=== PATIENT | female | born 1970 | race Hispanic/Latino ===

== ENCOUNTER → 2018-03-12 | Day surgery (SDC) | payer MEDICARE ==
[~2018-03-12] MED LIST: ABILIFY5 MG PO; ACTOS30 MG PO; AMITRIPTYLINE H50 MG PO; COLON HEALTH PO; CYMBALTA60 MG PO; DEXTROSE 5% 250ML 250 ML IV ONE; DIAZEPAM2 MG PO; FENTANYL CITRATE/PF 100MCG/2 ML INJ ONE; FLUDROCORTISON0.1 MG PO; GABAPENTIN300 MG PO; GABAPENTIN400 MG PO; GEODON20 MG PO; GLIMEPIRIDE4 MG PO; GLIPIZIDE5 MG PO; KOMBIGLYZE XR1 EAC2 PO; LANTUS100 UNIT/1 SQ; LEVOTHYROXINE100 MCG; MECLIZINE HCL25 MG PO; MELATONIN3 MG PO; MELOXICAM7.5 MG PO; MIDAZOLAM HCL 2 MG/2 ML VIAL ONE; MIDODRINE HCL2.5 MG PO; NITROFURANTOIN100 MG PO; NOVOLOG MI100 UNIT/1 SC; NOVOLOG100 UNIT/1; ONDANSETRON2 MG/1 ML PO; ONFI10 MG PO; PHENYTOIN100 MG/4 M SC; PLOGLITAZONE PO; PROPOFOL IV EMULSION 10 MG/ML 50 ML VIAL ONE; PROPRANOLOL HCL20 MG PO; QUETIAPINE FUM100 MG PO; QUETIAPINE FUMA25 MG PO; REGLAN10 MG PO; SERTRALINE HCL100 MG PO; SUMATRIPTAN SU100 MG PO; TRESIBA PO; ULTRAM 50MG50 MG PO; VICTOZA 3-0.6 MG/0.1 PO; VIMPAT100 MG PO; VITAMIN D32000 UNIT PO; [UNRECOGNIZED DRUG - OTHER] PO
--- OUTSIDE RECORDS SUMMARY | 2018-03-12 07:24 | XMS REPORT | Clinical Summary ---
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 Active meclizine (ANTIVERT) 25 Take 25 mg by 0 MG tablet mouth 3 (three) times daily as needed. Active B-complex with vitamin C Take 1 tablet 0 tablet by mouth daily. Active liraglutide 0.6 mg/0.1 mL Inject 1.6 mg 0 (18 mg/3 mL) PnIj subcutaneousl y daily. Active insulin degludec (TRESIBA Inject 40 0 FLEXTOUCH U-100) 100 Units unit/mL (3 mL) InPn subcutaneousl y daily. Active cloBAZam (ONFI) 10 mg Tab Take 1 tablet 120 tablet 1 tablet (10 mg total) 7 by mouth 2 (two) times daily. Max Daily Amount: 20 mg Active lacosamide 200 mg Tab Take 1 tablet 60 tablet 1 (200 mg 7 total) by mouth 2 (two) times daily. Max Daily Amount: 400 mg 01/23/2018 gabapentin (NEURONTIN) Take 2 360 capsule 1 300 MG capsule capsules (600 7 mg total) by mouth 3 (three) times daily. 01/24/2018 sertraline (ZOLOFT) 25 MG Take 2 60 tablet 3 tablet tablets (50 7 mg total) by mouth daily. Active Problems Problem Noted Date Epilepsy 01/20/2017 Encounters Care Team Description Date Type Specialty Brandon Alexandra MD Partial symptomatic epilepsy with complex partial seizures, not intractable, without status epilepticus (HCC) 11/18/2017 Hospital Encounter Brandon Alexandra MD Partial symptomatic epilepsy with complex partial seizures, not intractable, without status epilepticus (HCC) (Primary Dx) 11/11/2017 Outside Orders Central Scheduling after 03/11/2017 Social History Date Tobacco Use Types Packs/Day Years Used Never Smoker Smokeless Tobacco: Never Used Sex Assigned at Date Recorded Not on file Industry Job Start Date Occupation Not on file Not on file Not on file Travel End Travel History Travel Start No recent travel history available. Last Filed Vital Signs Not on file Plan of Treatment Not on file Procedures Comments Procedure Name Priority Date/Time Associated Diagnosis EEG AWAKE AND DROWSY Routine 11/18/2017 Partial symptomatic 2:11 PM CDT epilepsy with complex partial seizures, not intractable, without status epilepticus (HCC) after 03/11/2017 Results * EEG Awake & Drowsy (11/18/2017 2:11 PM CDT) Narrative Performed At Date(s) of EE11/18/2017 [facility] DATE OF REPORT: 11/18/2017 ACC: [id number] EEG Number: [id number] Test Location: Outpatient EEG Lab Start time: 13:29 Stop time: 14:00 ICD-10: R56.9 CPT Code: 00083 HISTORY: 47 yo female with episodes of aphasia concerning for seizures. EEG order to evaluate for epileptiform activity. MEDICATIONS THAT COULD AFFECT EEG: Clobazam TECHNICAL SUMMARY: This is a digital video-EEG recorded with 32 input channels reviewed with bipolar and referential montages using the modified combinatorial system nomenclature. DESCRIPTION OF RECORD: During the maximally alert state a 9 Hz posterior dominant rhythm was seen that was symmetric, reactive to eye opening and well regulated. More anteriorly, low voltage frontocentral beta predominated. Drowsiness was characterized by alpha attenuation and increased frontocentral theta, vertex sharp transients.Stage 2 sleep was reached characterized by symmetric sleep spindles and K-complexes. SIGNIFICANT VIDEO EVENTS: None SIGNIFICANT ELECTROCARDIOGRAM EVENTS: None HV: Hyperventilation was performed for 3 minutes with good effort. No change was seen with HV. PHOTIC STIMULATION: Photic stimulation was done from 1-30 Hz; no photic driving was seen; photoparoxysmal responses were absent. IMPRESSION: Normal Awake and Sleep EEG CLINICAL CORRELATION: An EEG without epileptiform discharges does not exclude the possibility of epilepsy.If the clinical suspicion of epilepsy remains, consider additional EEG recordings. Oliva Mcgraw MD Epilepsy Fellow Albert Alexandre MD Attending Neurophysiologist Procedure Note Interface, External Ris In - 11/18/2017 6:52 PM CDT Date(s) of EE11/18/2017 DATE OF REPORT: 11/18/2017 ACC: [id number] EEG Number: [id number] Test Location: Outpatient EEG Lab Start time: 13:29 Stop time: 14:00 ICD-10: R56.9 CPT Code: 30167 HISTORY: 47 yo female with episodes of aphasia concerning for seizures. EEG order to evaluate for epileptiform activity. MEDICATIONS THAT COULD AFFECT EEG: Clobazam TECHNICAL SUMMARY: This is a digital video-EEG recorded with 32 input channels reviewed with bipolar and referential montages using the modified combinatorial system nomenclature. DESCRIPTION OF RECORD: During the maximally alert state a 9 Hz posterior dominant rhythm was seen that was symmetric, reactive to eye opening and well regulated. More anteriorly, low voltage frontocentral beta predominated. Drowsiness was characterized by alpha attenuation and increased frontocentral theta, vertex sharp transients. Stage 2 sleep was reached characterized by symmetric sleep spindles and K-complexes. SIGNIFICANT VIDEO EVENTS: None SIGNIFICANT ELECTROCARDIOGRAM EVENTS: None HV: Hyperventilation was performed for 3 minutes with good effort. No change was seen with HV. PHOTIC STIMULATION: Photic stimulation was done from 1-30 Hz; no photic driving was seen; photoparoxysmal responses were absent. IMPRESSION: Normal Awake and Sleep EEG CLINICAL CORRELATION: An EEG without epileptiform discharges does not exclude the possibility of epilepsy. If the clinical suspicion of epilepsy remains, consider additional EEG recordings. Oliva Mcgraw MD Epilepsy Fellow Albert Alexandre MD Attending Neurophysiologist Performing Organization Address City/State/Zipcode Phone Number GE RIS after 03/11/2017 Insurance Payer Benefit Subscriber ID Type Phone Address Plan / Group MEDICARE MEDICARE A xxxxxxxxxx Medicare B MEDICAID MEDICAID xxxxxxxxx Medicaid OF [place] Advance Directives For more information, please contact: [address] [address] Date Inactivated Comments Code Status Date Activated 01/23/2017 2:40 PM Full Code 01/20/2017 8:53 AM This code status was determined by: Patient
--- OUTSIDE RECORDS SUMMARY | 2018-03-12 07:24 | XMS REPORT ---
Author Author [facility] Address Unknown Phone Unavailable Care Team Providers Care Watch Crystal Cutter Name Role Phone KIRILL ORDOÑEZ Unavailable Unavailable Problems This patient has no known problems. Allergies, Adverse Reactions, Alerts This patient has no known allergies or adverse reactions. Medications This patient has no known medications. 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 Date(s) of EE11/18/2017 DATE OF REPORT: 11/18/2017 ACC: [id number] EEG Number: [id number] Test Location: Outpatient EEG Lab Start time: 13:29 Stop time: 14:00 ICD-10: R56.9 CPT Code: 35498 HISTORY: 47 yo female with episodes of [...] Epilepsy Fellow Albert Alexandre MD Attending Neurophysiologist MONITORING WITH VIDEO RECORDING EACH 24 HOURS 2017-02-04 10:34:00 Reason for exam:->SLRE v/s PNES Video EEG Monitoring Report Angelica Chin Accession Numbers: [id number] (01/21/2017) [id number] (01/22/2017) [id number] (01/23/2017) ICD10: R56.9 EEG Number: [id number] EEG Study Period: 01/20/2017 09:35:22 to 01/23/2017 11:42:02 CLINICAL DETAILS: Angelica Chin is a 46 y.o woman w/ 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 She was referred from [facility]. Patient had her first seizure in 2001 at the age of 31. Her first event was reportedly a generalized tonic clonic seizure (GTCS). She was admitted to hospital after the event and she was diagnosed with Diabetes Mellitus type 2. A few years after her initial event she started having staring spells. Her typical event starts with a feeling of Giuliana vu followed by mouth automatisms and then she loses consciousness for unclear period of time. She has a reported event frequency of 2-3/day. 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 However, she continued to have seizure like events after the surgery. She was evaluated in EMU in 2015 and was told that she was having Psychogenic Nonepileptic events. However, she was seen by a different neurologist later who recommended VNS. VNS was placed in 2016 but seizures persisted. She was recently admitted to [facility] for DKA. She reported having semi rhythmic jerking movements on R side of her face when she was in hospital. EEG done during that hospital stay revealed 8 Hz post post background with frontal beta and epileptiform discharges in L Central - parietal region. MRI brain done during that admission 01/14/2017 showed no acute abnormalities. Patient has a history of being non compliant with medications. She reports developing numbness on both Left and right side of her body at different times after a seizure. 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 MRI Brain (01/14/2017): No acute abnormalities Reason for monitoring: recurrence of seizures 2 weeks after temporal lobe resection Medication changes during monitoring period: Day 1: Hold Clonazepam and Oxcarbazepine; continue Keppra , Lacosamide and Clobazam Day 2: Hold Keppra, start Gabapentin 300mg TID for neuropathic pain ; continue Lacosamide 200mg BID and Clobazam 10mg BID Day 3: Increase Gabapentin to 600mg TID; continue Lacosamide 200mg BID and Clobazam 10mg BID TECHNICAL DETAILS: This is a continuous scalp EEG using the international 10-20 system of electrode placement with Additional anterior temporal leads (TA1/ TA2) and one-channel EKG. Special stimulation procedures performed include photic stimulation, hyperventilation, and sleep deprivation. FINDINGS: Awake Background: The posterior dominant rhythm is 8.5-9 Hz, symmetric, reactive to eye opening and well regulated. More anteriorly, low voltage frontocentral beta predominated. Almost continuous theta- delta slowing was seen in the left mid-posterior temporal region during wakefulness and sleep. There were frequent left temporal spikes, maximal at T7/P7 on day 1, 2 and 3 of the recording. Sleep Background: Drowsiness was characterized by alpha attenuation and increased frontocentral theta, vertex sharp transients and POSTS. Stage 2 sleep was reached and was characterized by symmetric sleep spindles and K-complexes. Slow wave sleep was present and was symmetrically expressed. Left temporal spikes (maximal at T7/P7) persist during sleep. Hyperventilation: Hyperventilation was performed on day 1 of the recording and was associated with no significant change to the background rhythm. Photic stimulation: Photic stimulation with different frequencies of flash stimulation on day 1; photic driving was not seen; photoparoxysmal response were absent. Events: During the recording period, the patient had 1 event, which was described by her as her typical event. Event #1: Unresponsiveness with oral automatisms Clinical Description: The event button was pressed by the patient at 14:16:21 on 01/22/17, i.e Day 2 of the recording. Prior to the event, patient was lying on her left side on the bed and the TV was turned on. Clinical onset was marked by oral automatisms while patient continued to lay on her left side with eyes partially open. She pressed the event button again after about 40 second. When the nurse came and evaluated the patient, she was not responding to her questions or following any commands. She pressed the button again after about 2 minutes. The entire episode lasted for close to 12 minutes after which patient fell asleep for 2 hours. Electrographic Description: During this prolonged event, there were no electrographic changes. There was no change in HR on EKG during the event. 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 She is referred to EMU from [facility] for recurrence of seizures after temporal lobectomy. As per the patient, the seizures returned about 2 weeks after her surgery in 2011 and appear similar to her events prior to the surgery. Currently, these events of staring spells with oral automatisms, preceded by a feeling of dj vu occur at a reported frequency of 2-3 times per day. During this 3-day EMU admission, her awake and sleep background was normal. Almost continuous theta- delta slowing was seen in the left mid-posterior temporal region during wakefulness and sleep with superimposed frequent left temporal spikes, maximal at T7/P7 on day 1, 2 and 3 of the recording. One typical event was captured, which lasted about 12 minutes and was not associated with any electrographic correlate. 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 The diagnosis was disc ussed in detail with the patient and psychiatry was consulted. Abnormal interictal EEG findings are most likely secondary to prior resection in the same region. The patient was discharged home in good condition. She was instructed to continue her home Lacosamide 200mg BID and Clobazam 10mg BID and discontinue Clonazepam, Oxcarbazepine and Keppra. Gabapentin 600mg TID was started for neuropathic pain. Zoloft was started by psychiatry for major depression. Patient was advised to follow up with Dr. Alexandra in [facility] clinic and psychiatry as outpatient. 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 She was referred from [facility]. Patient had her first seizure in 2001 at the age of 31. Her first event was reportedly a generalized tonic clonic seizure (GTCS). She was admitted to hospital after the event and she was diagnosed with Diabetes Mellitus type 2. A few years after her initial event she started having staring spells. Her typical event starts with a feeling of Giuliana vu followed by mouth automatisms and then she loses consciousness for unclear period of time. She has a reported event frequency of 2-3/day. 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 However, she continued to have seizure like events after the surgery. She was evaluated in EMU in 2015 and was told that she was having Psychogenic Nonepileptic events. However, she was seen by a different neurologist later who recommended VNS. VNS was placed in 2016 but seizures persisted. She was recently admitted to [facility] for DKA. She reported having semi rhythmic jerking movements on R side of her face when she was in hospital. EEG done during that hospital stay revealed 8 Hz post post background with frontal beta and epileptiform discharges in L Central - parietal region. MRI brain done during that admission 01/14/2017 showed no acute abnormalities. Patient has a history of being non compliant with medications. She reports developing numbness on both Left and right side of her body at different times after a seizure. 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 MRI Brain (01/14/2017): No acute abnormalities Reason for monitoring: recurrence of seizures 2 weeks after temporal lobe resection Medication changes during monitoring period: Day 1: Hold Clonazepam and Oxcarbazepine; continue Keppra , Lacosamide and Clobazam Day 2: Hold Keppra, start Gabapentin 300mg TID for neuropathic pain ; continue Lacosamide 200mg BID and Clobazam 10mg BID Day 3: Increase Gabapentin to 600mg TID; continue Lacosamide 200mg BID and Clobazam 10mg BID TECHNICAL DETAILS: This is a continuous scalp EEG using the international 10-20 system of electrode placement with Additional anterior temporal leads (TA1/ TA2) and one-channel EKG. Special stimulation procedures performed include photic stimulation, hyperventilation, and sleep deprivation. FINDINGS: Awake Background: The posterior dominant rhythm is 8.5-9 Hz, symmetric, reactive to eye opening and well regulated. More anteriorly, low voltage frontocentral beta predominated. Almost continuous theta- delta slowing was seen in the left mid-posterior temporal region during wakefulness and sleep. There were frequent left temporal spikes, maximal at T7/P7 on day 1, 2 and 3 of the recording. Sleep Background: Drowsiness was characterized by alpha attenuation and increased frontocentral theta, vertex sharp transients and POSTS. Stage 2 sleep was reached and was characterized by symmetric sleep spindles and K-complexes. Slow wave sleep was present and was symmetrically expressed. Left temporal spikes (maximal at T7/P7) persist during sleep. Hyperventilation: Hyperventilation was performed on day 1 of the recording and was associated with no significant change to the background rhythm. Photic stimulation: Photic stimulation with different frequencies of flash stimulation on day 1; photic driving was not seen; photoparoxysmal response were absent. Events: During the recording period, the patient had 1 event, which was described by her as her typical event. Event #1: Unresponsiveness with oral automatisms Clinical Description: The event button was pressed by the patient at 14:16:21 on 01/22/17, i.e Day 2 of the recording. Prior to the event, patient was lying on her left side on the bed and the TV was turned on. Clinical onset was marked by oral automatisms while patient continued to lay on her left side with eyes partially open. She pressed the event button again after about 40 second. When the nurse came and evaluated the patient, she was not responding to her questions or following any commands. She pressed the button again after about 2 minutes. The entire episode lasted for close to 12 minutes after which patient fell asleep for 2 hours. Electrographic Description: During this prolonged event, there were no electrographic changes. There was no change in HR on EKG during the event. 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 She is referred to EMU from [facility] for recurrence of seizures after temporal lobectomy. As per the patient, the seizures returned about 2 weeks after her surgery in 2011 and appear similar to her events prior to the surgery. Currently, these events of staring spells with oral automatisms, preceded by a feeling of dj vu occur at a reported frequency of 2-3 times per day. During this 3-day EMU admission, her awake and sleep background was normal. Almost continuous theta- delta slowing was seen in the left mid-posterior temporal region during wakefulness and sleep with superimposed frequent left temporal spikes, maximal at T7/P7 on day 1, 2 and 3 of the recording. One typical event was captured, which lasted about 12 minutes and was not associated with any electrographic correlate. 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 The diagnosis was disc ussed in detail with the patient and psychiatry was consulted. Abnormal interictal EEG findings are most likely secondary to prior resection in the same region. The patient was discharged home in good condition. She was instructed to continue her home Lacosamide 200mg BID and Clobazam 10mg BID and discontinue Clonazepam, Oxcarbazepine and Keppra. Gabapentin 600mg TID was started for neuropathic pain. Zoloft was started by psychiatry for major depression. Patient was advised to follow up with Dr. Alexandra in [facility] clinic and psychiatry as outpatient. 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 She was referred from [facility]. Patient had her first seizure in 2001 at the age of 31. Her first event was reportedly a generalized tonic clonic seizure (GTCS). She was admitted to hospital after the event and she was diagnosed with Diabetes Mellitus type 2. A few years after her initial event she started having staring spells. Her typical event starts with a feeling of Giuliana vu followed by mouth automatisms and then she loses consciousness for unclear period of time. She has a reported event frequency of 2-3/day. 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 However, she continued to have seizure like events after the surgery. She was evaluated in EMU in 2015 and was told that she was having Psychogenic Nonepileptic events. However, she was seen by a different neurologist later who recommended VNS. VNS was placed in 2016 but seizures persisted. She was recently admitted to [facility] for DKA. She reported having semi rhythmic jerking movements on R side of her face when she was in hospital. EEG done during that hospital stay revealed 8 Hz post post background with frontal beta and epileptiform discharges in L Central - parietal region. MRI brain done during that admission 01/14/2017 showed no acute abnormalities. Patient has a history of being non compliant with medications. She reports developing numbness on both Left and right side of her body at different times after a seizure. 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 MRI Brain (01/14/2017): No acute abnormalities Reason for monitoring: recurrence of seizures 2 weeks after temporal lobe resection Medication changes during monitoring period: Day 1: Hold Clonazepam and Oxcarbazepine; continue Keppra , Lacosamide and Clobazam Day 2: Hold Keppra, start Gabapentin 300mg TID for neuropathic pain ; continue Lacosamide 200mg BID and Clobazam 10mg BID Day 3: Increase Gabapentin to 600mg TID; continue Lacosamide 200mg BID and Clobazam 10mg BID TECHNICAL DETAILS: This is a continuous scalp EEG using the international 10-20 system of electrode placement with Additional anterior temporal leads (TA1/ TA2) and one-channel EKG. Special stimulation procedures performed include photic stimulation, hyperventilation, and sleep deprivation. FINDINGS: Awake Background: The posterior dominant rhythm is 8.5-9 Hz, symmetric, reactive to eye opening and well regulated. More anteriorly, low voltage frontocentral beta predominated. Almost continuous theta- delta slowing was seen in the left mid-posterior temporal region during wakefulness and sleep. There were frequent left temporal spikes, maximal at T7/P7 on day 1, 2 and 3 of the recording. Sleep Background: Drowsiness was characterized by alpha attenuation and increased frontocentral theta, vertex sharp transients and POSTS. Stage 2 sleep was reached and was characterized by symmetric sleep spindles and K-complexes. Slow wave sleep was present and was symmetrically expressed. Left temporal spikes (maximal at T7/P7) persist during sleep. Hyperventilation: Hyperventilation was performed on day 1 of the recording and was associated with no significant change to the background rhythm. Photic stimulation: Photic stimulation with different frequencies of flash stimulation on day 1; photic driving was not seen; photoparoxysmal response were absent. Events: During the recording period, the patient had 1 event, which was described by her as her typical event. Event #1: Unresponsiveness with oral automatisms Clinical Description: The event button was pressed by the patient at 14:16:21 on 01/22/17, i.e Day 2 of the recording. Prior to the event, patient was lying on her left side on the bed and the TV was turned on. Clinical onset was marked by oral automatisms while patient continued to lay on her left side with eyes partially open. She pressed the event button again after about 40 second. When the nurse came and evaluated the patient, she was not responding to her questions or following any commands. She pressed the button again after about 2 minutes. The entire episode lasted for close to 12 minutes after which patient fell asleep for 2 hours. Electrographic Description: During this prolonged event, there were no electrographic changes. There was no change in HR on EKG during the event. 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 She is referred to EMU from [facility] for recurrence of seizures after temporal lobectomy. As per the patient, the seizures returned about 2 weeks after her surgery in 2011 and appear similar to her events prior to the surgery. Currently, these events of staring spells with oral automatisms, preceded by a feeling of dj vu occur at a reported frequency of 2-3 times per day. During this 3-day EMU admission, her awake and sleep background was normal. Almost continuous theta- delta slowing was seen in the left mid-posterior temporal region during wakefulness and sleep with superimposed frequent left temporal spikes, maximal at T7/P7 on day 1, 2 and 3 of the recording. One typical event was captured, which lasted about 12 minutes and was not associated with any electrographic correlate. 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 The diagnosis was disc ussed in detail with the patient and psychiatry was consulted. Abnormal interictal EEG findings are most likely secondary to prior resection in the same region. The patient was discharged home in good condition. She was instructed to continue her home Lacosamide 200mg BID and Clobazam 10mg BID and discontinue Clonazepam, Oxcarbazepine and Keppra. Gabapentin 600mg TID was started for neuropathic pain. Zoloft was started by psychiatry for major depression. Patient was advised to follow up with Dr. Alexandra in [facility] and psychiatry as outpatient. Epilepsy Fellow: Janet Cabrera MD Epilepsy Attending: Davon Casillas MD, FACNS, FAAN, FAES Department of Neurology [facility] -GLUCOSE METER 2017-01-23 12:00:00 POC-GLUCOSE METER (BEAKER) (test nioy=7023) 181 mg/dL 70-110 TESTED AT [address] [address] POCT-GLUCOSE [id number] 09:04:00* Test Item Value Reference Range Comments POC-GLUCOSE METER (BEAKER) (test eopr=6025) 101 mg/dL 70-110 TESTED AT [address] [address] POCT-GLUCOSE [id number] 21:00:00* Test Item Value Reference Range Comments POC-GLUCOSE METER (BEAKER) (test auuf=8902) 293 mg/dL 70-110 TESTED AT [address] [address] POCT-GLUCOSE [id number] 18:52:00* Test Item Value Reference Range Comments POC-GLUCOSE METER (BEAKER) (test htsd=7201) 149 mg/dL 70-110 TESTED AT [address] [address] POCT-GLUCOSE [id number] 18:15:00* Test Item Value Reference Range Comments POC-GLUCOSE METER (BEAKER) (test poit=8705) 53 mg/dL 70-110 TESTED AT [address] [address] POCT-GLUCOSE [id number] 18:04:00* Test Item Value Reference Range Comments POC-GLUCOSE METER (BEAKER) (test vqso=8415) 50 mg/dL 70-110 TESTED AT [address] [address] POCT-GLUCOSE [id number] 11:26:00* Test Item Value Reference Range Comments POC-GLUCOSE METER (BEAKER) (test zsie=3413) 185 mg/dL 70-110 TESTED AT [address] [address] POCT-GLUCOSE [id number] 07:55:00* Test Item Value Reference Range Comments POC-GLUCOSE METER (BEAKER) (test qgzx=3172) 102 mg/dL 70-110 TESTED AT [address] [address] POCT-GLUCOSE [id number] 21:33:00* Test Item Value Reference Range Comments POC-GLUCOSE METER (BEAKER) (test wavi=9508) 239 mg/dL 70-110 TESTED AT [place] [id number] [facility] [address] POCT-GLUCOSE [id number] 18:12:00* Test Item Value Reference Range Comments POC-GLUCOSE METER (BEAKER) (test ybay=8049) 239 mg/dL 70-110 TESTED AT [address] [address] POCT-GLUCOSE [id number] 15:30:00* Test Item Value Reference Range Comments POC-GLUCOSE METER (BEAKER) (test mfri=1840) 252 mg/dL 70-110 TESTED AT [address] [address] HEMOGLOBIN [id number] 11:33:00* Test Item Value Reference Range Comments HEMOGLOBIN A1C (BEAKER) (test uabf=800) 9.6 % 4.3-6.1 POCT-GLUCOSE [id number] 10:08:00* Test Item Value Reference Range Comments POC-GLUCOSE METER (BEAKER) (test oeto=3358) 183 mg/dL 70-110 TESTED AT [address] [address] VITAMIN D, [id number] 03:52:00* Test Item Value Reference Range Comments VITAMIN D 25-OH (BEAKER) (test thnq=1863) 38.1 ng/mL 13.0-47.8 [id number] 03:25:00* Test Item Value Reference Range Comments THYROID STIMULATING HORMONE (BEAKER) (test dvyw=129) 2.96 uIU/mL 0.35-4.94 VALPROIC ACID LEVEL, [id number] 23:08:00* Test Item Value Reference Range Comments VALPROIC ACID TOTAL (BEAKER) (test quwa=593) < ug/mL 50-100 Therapeutic range for some clinical conditions may be >100 ug/mLCOMPREHENSIVE METABOLIC [id number] 23:05:00* Test Item Value Reference Range Comments TOTAL PROTEIN (BEAKER) (test pkgo=387) 7.1 gm/dL 6.0-8.3 ALBUMIN (BEAKER) (test nvsi=2659) 3.9 g/dL 3.5-5.0 ALKALINE PHOSPHATASE (BEAKER) (test allj=742) 104 U/L 40-150 BILIRUBIN TOTAL (BEAKER) (test xbba=497) < mg/dL 0.2-1.2 SODIUM (BEAKER) (test hqmx=912) 136 meq/L 136-145 POTASSIUM (BEAKER) (test cohl=097) 4.0 meq/L 3.5-5.1 CHLORIDE (BEAKER) (test mncw=621) 104 meq/L 98-107 CO2 (BEAKER) (test vguf=779) 20 meq/L 22-29 BLOOD UREA NITROGEN (BEAKER) (test uswh=285) 9 mg/dL 7-21 CREATININE (BEAKER) (test jdok=973) 0.97 mg/dL 0.57-1.25 GLUCOSE RANDOM (BEAKER) (test adeo=744) 124 mg/dL 70-105 CALCIUM (BEAKER) (test xauj=498) 10.2 mg/dL 8.4-10.2 AST (SGOT) (BEAKER) (test hrcw=075) 15 U/L 5-34 ALT (SGPT) (BEAKER) (test lphq=133) < U/L 6-55 EGFR (BEAKER) (test cybq=1038) 62 mL/min/1.73 sq m ESTIMATED GFR IS NOT ACCURATE CREATININE CLEARANCE IN PREDICTING GLOMERULAR FILTRATION RATE. ESTIMATED GFR IS NOT APPLICABLE FOR DIALYSIS PATIENTS. CBC (HEMOGRAM ONLY)2017-01-20 22:40:00* Test Item Value Reference Range Comments WHITE BLOOD CELL COUNT (BEAKER) (test cmyx=175) 5.3 K/ L 3.5-10.5 RED BLOOD CELL COUNT (BEAKER) (test iwhg=161) 4.43 M/ L 3.93-5.22 HEMOGLOBIN (BEAKER) (test nxsn=900) 13.2 GM/DL 11.2-15.7 HEMATOCRIT (BEAKER) (test xlwi=255) 40.3 % 34.1-44.9 MEAN CORPUSCULAR VOLUME (BEAKER) (test krvf=564) 91.0 fL 79.4-94.8 MEAN CORPUSCULAR HEMOGLOBIN (BEAKER) (test amoo=113) 29.8 pg 25.6-32.2 MEAN CORPUSCULAR HEMOGLOBIN CONC (BEAKER) (test kgql=189) 32.8 GM/DL 32.2-35.5 RED CELL DISTRIBUTION WIDTH (BEAKER) (test gewf=756) 13.2 % 11.7-14.4 PLATELET COUNT (BEAKER) (test upae=703) 324 K/CU MM 150-450 MEAN PLATELET VOLUME (BEAKER) (test xlzf=819) 9.7 fL 9.4-12.3 NUCLEATED RED BLOOD CELLS (BEAKER) (test xqoi=253) 0 /100 WBC 0-0 POCT-GLUCOSE [id number] 21:10:00* Test Item Value Reference Range Comments POC-GLUCOSE METER (BEAKER) (test fwgs=4084) 159 mg/dL 70-110 TESTED AT [address] [address] POCT-GLUCOSE [id number] 17:04:00* Test Item Value Reference Range Comments POC-GLUCOSE METER (BEAKER) (test nhvr=8731) 214 mg/dL 70-110 TESTED AT [address] [address] POCT-GLUCOSE [id number] 08:20:00* Test Item Value Reference Range Comments POC-GLUCOSE METER (BEAKER) (test tvcd=6376) 158 mg/dL 70-110 TESTED AT [address] [address]
--- OUTSIDE RECORDS SUMMARY | 2018-03-12 07:24 | XMS REPORT | Clinical Summary ---
Author Author Noriega [facility] Organization [facility] Address Unknown Phone Unavailable Care Team Providers Care Merchandising Assistant Name Role Phone Gerber Burch MD PCP Allergies Comments Active Allergy Reactions Severity Noted Date Sitagliptin Itching Medium 01/20/2017 Cephalexin Itching High 01/15/2017 Pregabalin Itching, Low 01/15/2017 Rash, Swelling hallucinations Morphine Itching, Rash Low 01/20/2017 Esomeprazole Magnesium 04/08/2017 Opioids - Morphine 01/15/2017 Analogues Sitagliptin Phosphate Itching Medium 01/20/2017 Methen-Sod Phos-Meth Rash Low 03/01/2018 Blue-Hyos Medications End Date Status Medication Sig Dispensed Refills Start Date Active fludrocortisone 0.1 mg Take 0.2 mg 3 tablet by mouth 7 daily. Active ONFI 10 mg tablet Take 10 mg by 1 mouth 2 (two) 7 times a day. Active TRESIBA FLEXTOUCH U-200 Inject 40 1 200 unit/mL (3 mL) Units under 7 insulin pen the skin daily as needed. Patient takes qam based on BS. If patient BS is over 300 she takes it. Active liraglutide (VICTOZA) 0.6 Inject 1.8 mg 0 mg/0.1 mL (18 mg/3 mL) under the pen injector skin every morning. Active gabapentin (NEURONTIN) Take 600 mg 0 600 mg tablet by mouth 2 7 (two) times a day. Pt takes meds at the morning(0700) , evening(1900) Active ONETOUCH ULTRA TEST strip U UTD TID 8 test strips 7 Active ONETOUCH ULTRAMINI kit U UTD TO 8 CHECK BLOOD 7 SUGAR Active repaglinide (PRANDIN) 1 Take 1 mg by 0 MG tablet mouth 3 (three) times a day before meals. Active melatonin 10 mg capsule Take 1 0 capsule by mouth nightly as needed. Active QUEtiapine (SEROquel) 100 Take 150 mg 0 MG tablet by mouth nightly. Active sertraline (ZOLOFT) 100 Take 150 mg 0 MG tablet by mouth nightly. Active ASCORBIC ACID, VITAMIN C, Take 1 tablet 0 ORAL by mouth every morning. Active insulin lispro (HumaLOG) Inject 20 0 100 unit/mL injection Units under the skin 3 (three) times a day as needed for high blood sugar. Patient does not know the parameters of this medication when asked. She states it is based on her BS but she could not give me the parameters Active pantoprazole (PROTONIX) Take 40 mg by 0 40 MG EC tablet mouth every morning. Active LATUDA 20 mg tablet TK 1 T PO D 1 8 Active lidocaine (XYLOCAINE) 5 % Apply 1 0 ointment application 8 topically daily as needed. Active DULoxetine (CYMBALTA) 60 TK 1 C PO BID 1 MG capsule 8 Active calcipotriene (DOVONOX) Apply 1 0 0.005 % cream application 8 topically 2 (two) times a day. Active ARIPiprazole (ABILIFY) 5 TK 1 T PO 0 MG tablet DAILY. 8 Active lacosamide (VIMPAT) 200 TAKE 1 TABLET 0 mg tablet BY MOUTH 8 TWICE DAILY Active estradiol (ESTRACE) 0.01 Insert 2 g 42.5 g 3 % (0.1 mg/gram) vaginal into the 8 cream vagina 3 (three times a week at 2100. 04/04/2018 Active levothyroxine (SYNTHROID, Take 1 tablet 30 tablet 0 LEVOXYL) 25 mcg tablet (25 mcg 8 total) by mouth daily for 30 days. 03/01/2018 Discontinued VIMPAT 200 mg tablet Take 200 mg 5 by mouth 2 7 (two) times a day. Pt takes at afternoon and bedtime 01/17/2018 Discontinued pantoprazole (PROTONIX) Take 40 mg by 3 40 MG EC tablet mouth 2 (two) 7 times a day. Pt takes in the afternoon and evening 03/01/2018 Discontinued sertraline (ZOLOFT) 50 MG Take 100 mg 5 tablet by mouth 7 every evening. Take at 1800 for a night time total of 150mg. Patient takes at 2 intervals 03/04/2018 Discontinued meloxicam (MOBIC) 15 mg Take 15 mg by 3 tablet mouth every 7 morning. 03/04/2018 Discontinued meclizine (ANTIVERT) 25 Take 25 mg by 0 mg tablet mouth 3 7 (three) times a day as needed for dizziness. 03/29/2017 Discontinued sulfamethoxazole-trimetho Take 1 tablet 0 prim (BACTRIM DS) 800-160 by mouth 2 7 mg per tablet (two) times a day. For 10 days 03/29/2017 Discontinued insulin lispro 100 Inject 20 0 unit/mL insulin pen, Units under half-unit the skin 3 (three) times a day before meals. 01/17/2018 Discontinued acetaminophen-codeine Take 0.5-1 0 (TYLENOL WITH CODEINE #4) tablets by 7 300-60 mg per tablet mouth every 12 (twelve) hours as needed for pain. 04/28/2017 insulin GLARGINE (LANTUS) Inject 20 12 mL 0 100 unit/mL injection Units under 7 (vial) the skin 2 (two) times a day for 30 days. 04/18/2017 Discontinued insulin lispro (HumaLOG) Inject 10 10 mL 12 100 unit/mL injection Units under 7 the skin 3 (three) times a day with meals for 30 days. 03/29/2017 fosfomycin (MONUROL) 3 Take 3 g by 3 g 0 gram packet mouth once 7 for 1 dose. 01/17/2018 Discontinued JANUVIA 100 mg tablet TK 1 T PO QD 0 IN THE 7 AFTERNOON 04/18/2017 Discontinued sertraline (ZOLOFT) 25 MG TK 2 TS PO QD 3 tablet 7 12/08/2017 Discontinued ondansetron (ZOFRAN) 4 MG TK 1 T PO Q 8 2 tablet H PRN FOR 7 NAUSEA 04/18/2017 Discontinued levoFLOXacin (LEVAQUIN) TK 1 T PO QD 0 500 MG tablet FOR 10 DAYS 7 01/17/2018 Discontinued levETIRAcetam (KEPPRA) Take 1,000 mg 3 1000 MG tablet by mouth 2 7 (two) times a day. Pt takes in the afternoon and bedtime 04/18/2017 Discontinued HUMALOG KWIKPEN 100 INJECT 35 0 unit/mL injection pen UNITS SC TID 7 04/18/2017 Discontinued clonAZEPAM (KlonoPIN) 1 TK 1 T PO BID 3 MG tablet in the 7 morning and 1400 in the afternoon 01/17/2018 Discontinued B-complex with vitamin C Take 1 tablet 0 tablet by mouth every morning. 09/08/2017 Discontinued nitrofurantoin Take 1 30 capsule 3 (MACRODANTIN) 100 MG capsule (100 7 capsule mg total) by mouth nightly for 30 days. 04/18/2017 Discontinued doxycycline (VIBRAMYCIN) Take 1 14 capsule 0 50 MG capsule capsule (50 7 mg total) by mouth 2 (two) times a day for 7 days. 04/18/2017 Discontinued DULoxetine (CYMBALTA) 30 Take 30 mg by 0 MG capsule mouth 2 (two) 7 times a day. 04/18/2017 Discontinued FYCOMPA 2 mg tablet Take 2 mg by 0 tablet mouth 2 (two) 7 times a day. Pt takes the meds in the afternoon and bedtime 07/05/2017 Discontinued traMADol (ULTRAM) 50 mg Take 50 mg by 0 tablet mouth every 3 (three) hours as needed for moderate pain or severe pain (LEG PAIN). 07/10/2017 azithromycin (ZITHROMAX Take 2 6 tablet 0 Z-DERREK) 250 MG tablet tablets the 8 first day, then 1 tablet daily for 4 days. 07/10/2017 traMADol (ULTRAM) 50 mg Take 1 tablet 12 tablet 0 tablet (50 mg total) 8 by mouth every 6 (six) hours as needed for moderate pain for up to 5 days. 07/10/2017 traMADol (ULTRAM) 50 mg Take 1 tablet 14 tablet 0 tablet (50 mg total) 8 by mouth every 6 (six) hours as needed for moderate pain or severe pain (LEG PAIN) for up to 5 days. 07/10/2017 benzonatate (TESSALON) Take 1 14 capsule 0 100 MG capsule capsule (100 8 mg total) by mouth every 8 (eight) hours for 5 days. 08/19/2017 Discontinued doxycycline (VIBRAMYCIN) Take 2 56 capsule 0 50 MG capsule capsules (100 8 mg total) by mouth 2 (two) times a day for 14 days. 09/02/2017 doxycycline (VIBRAMYCIN) TAKE 2 28 capsule 0 50 MG capsule CAPSULES(100 8 MG) BY MOUTH TWICE DAILY FOR 14 DAYS 10/09/2017 nitrofurantoin TAKE 1 30 capsule 0 (MACRODANTIN) 100 MG CAPSULE(100 8 capsule MG) BY MOUTH EVERY NIGHT 12/22/2017 Discontinued nitrofurantoin, To be taken 30 capsule 2 macrocrystal-monohydrate, with on set 8 (MACROBID) 100 MG capsule of UTI symptoms. 12/11/2017 Discontinued levoFLOXacin (LEVAQUIN) Take 1 tablet 10 tablet 0 500 MG tablet (500 mg 8 total) by mouth daily for 10 days. 12/13/2017 acetaminophen-codeine Take 1-2 15 tablet 0 (TYLENOL WITH CODEINE #3) tablets by 8 300-30 mg per tablet mouth every 6 (six) hours as needed for moderate pain for up to 5 days. 01/10/2018 levoFLOXacin (LEVAQUIN) Take 1 tablet 30 tablet 0 500 MG tablet (500 mg 8 total) by mouth daily for 30 days. 01/22/2018 nitrofurantoin, TAKE 1 30 capsule 3 macrocrystal-monohydrate, CAPSULE BY 8 (MACROBID) 100 MG capsule MOUTH WITH ONSET OF UTI SYMPTOMS 03/01/2018 Discontinued gabapentin (NEURONTIN) Take 300 mg 0 300 mg capsule by mouth 2 (two) times a day. Take at 12pm and 2000 01/17/2018 Discontinued DULoxetine (CYMBALTA) 60 Take 60 mg by 0 MG capsule mouth 2 (two) times a day. 03/01/2018 Discontinued QUEtiapine (SEROquel) 100 Take 100 mg 0 MG tablet by mouth every evening. At 1900. For a total of 150mg per night. Patient takes in 2 intervals 01/18/2018 Discontinued traMADol (ULTRAM) 50 mg Take 50 mg by 0 tablet mouth every 6 (six) hours as needed for moderate pain. 03/04/2018 Discontinued MAGNESIUM ORAL Take 1 tablet 0 by mouth daily with lunch. 03/04/2018 Discontinued ondansetron (ZOFRAN) 4 MG Take 4 mg by 0 tablet mouth every 8 (eight) hours as needed for nausea or vomiting. 01/18/2018 Discontinued nitrofurantoin, Take 1 10 capsule 0 macrocrystal-monohydrate, capsule (100 8 (MACROBID) 100 MG capsule mg total) by mouth every 12 (twelve) hours for 5 days. 03/01/2018 Discontinued QUEtiapine (SEROquel) 50 TK 1 T PO TID 1 MG tablet PRA 8 03/04/2018 Discontinued HYDROcodone-acetaminophen TK 1 T PO Q 6 0 (NORCO) 5-325 mg per H FOR 5 DAYS 8 tablet PRN 03/01/2018 Discontinued sertraline (ZOLOFT) 100 Take 100 mg 0 MG tablet by mouth. 8 03/01/2018 Discontinued repaglinide (PRANDIN) 1 TK 1 T PO Q 0 MG tablet 15 TO 30 MIN 8 BEFORE MEALS 02/04/2018 doxycycline (VIBRAMYCIN) Take 1 14 capsule 0 100 MG capsule capsule (100 8 mg total) by mouth 2 (two) times a day for 7 days. 02/13/2018 doxycycline (VIBRA-TABS) Take 1 tablet 14 tablet 0 100 MG tablet (100 mg 8 total) by mouth 2 (two) times a day for 7 days. Active Problems Problem Noted Date Unsteady gait 03/01/2018 Personal history of urethral stricture 02/24/2018 Fall 01/17/2018 Overactive bladder 08/07/2017 DVT (deep vein thrombosis) in 04/20/2017 Lower leg DVT (deep venous thromboembolism), acute, left 04/18/2017 Urinary tract infection without hematuria 04/08/2017 Postmenopausal atrophic vaginitis 04/08/2017 Diabetes mellitus 03/28/2017 Seizures 03/28/2017 DKA (diabetic ketoacidoses) 03/26/2017 Resolved Problems Problem Noted Date Resolved Date Constipation 04/08/2017 08/07/2017 Encounters Care Team Description Date Type Specialty Emmanuel Garber MD 03/10/2018 Refill Urology Milvia Cazares RN 03/04/2018 Documentation Obstetrics and Gynecology Sandra Shah MA 03/03/2018 Telephone Urology Emmanuel Garber MD 03/03/2018 Telephone Urology Atul Rivera MD Al-Lahiq, Maha, MD Unsteady gait (Primary Dx); Suicide attempt (HCC); Generalized weakness 03/01/2018 [facility] General Internal Medicine - Encounter 03/04/2018 N/A 03/01/2018 Intake Access Emmanuel Garber MD Overactive bladder (Primary Dx); Postmenopausal atrophic vaginitis; Urinary tract infection without hematuria, site unspecified; Personal history of urethral stricture 02/24/2018 Office Visit Urology Emmanuel Garebr MD 02/24/2018 Telephone Urology Emmanuel Garber MD 02/17/2018 Telephone Urology Emmanuel Garber MD 02/06/2018 Telephone Urology Sandra Shah MA 02/06/2018 Orders Only Urology Emmanuel Garber MD Urinary tract infection without hematuria, site unspecified (Primary Dx); Postmenopausal atrophic vaginitis; Overactive bladder 01/28/2018 Office Visit Urology Emmanuel Garber MD 01/20/2018 Telephone Urology Chacha Malone MD Mayen Nunez, Jose Iasis, MD Al-Lahiq, Maha, MD Fall, initial encounter (Primary Dx); Syncope and collapse; Confusion and disorientation; Closed avulsion fracture of lateral malleolus of left fibula, initial encounter; Abrasion; Seizures; Acute cystitis without hematuria 01/16/2018 Emergency General Internal Medicine - 01/18/2018 Emmanuel Garber MD 01/07/2018 Telephone Urology Emmanuel Garber MD 01/07/2018 Telephone Urology Emmanuel Garber MD 12/22/2017 Refill Urology Emmanuel Garber MD 12/11/2017 Telephone Urology Atul Rivera MD Pyelonephritis (Primary Dx) 12/08/2017 Emergency Emergency Medicine Emmanuel Garber MD 12/08/2017 Telephone Urology Kyle Silva MD Contusion of scalp, initial encounter (Primary Dx); Strain of neck muscle, initial encounter 11/19/2017 Emergency Emergency Medicine Emmanuel Garber MD 10/11/2017 Refill Urology Sandra Shah MA 10/10/2017 Telephone Urology Emmanuel Garber MD 09/08/2017 Refill Urology Emmanuel Garber MD 08/19/2017 Refill Urology Emmanuel Garber MD 08/12/2017 Telephone Urology Emmanuel Garber MD 08/11/2017 Telephone Urology Emmanuel Garber MD Urinary tract infection without hematuria, site unspecified (Primary Dx); Recurrent UTI; Postmenopausal atrophic vaginitis; Overactive bladder 08/07/2017 Office Visit Urology Emmanuel Garber MD Urinary tract infection without hematuria, site unspecified (Primary Dx) 07/21/2017 Clinical Urology Support Emmanuel Garber MD 07/21/2017 Telephone Urology Joseph Melendez MD Bronchitis (Primary Dx); Closed fracture of multiple ribs of right side, initial encounter 07/05/2017 Emergency Emergency Medicine Nitin Martinez PA-C Syed, Matias Littlejohn, Kostas Mobley MD Lower leg DVT (deep venous thromboembolism), acute, left (Primary Dx) 04/18/2017 [facility] General Internal Medicine - Encounter 04/21/2017 Emmanuel Garber MD Recurrent UTI 04/18/2017 Hospital Radiology Encounter Emmanuel Garber MD 04/11/2017 Telephone Urology Flavia Gant MA 04/11/2017 Telephone Urology Emmanuel Garber MD Recurrent UTI (Primary Dx); Constipation, unspecified constipation type; Postmenopausal atrophic vaginitis 04/08/2017 Office Visit Urology Emmanuel Garber MD 04/03/2017 Telephone Urology Emmanuel Garber MD 04/01/2017 Telephone Urology Refugio Beckford MD Tran, Charles Hong-Lac, Kunal Banks MD TeqwimDonald abbott DO Diabetic ketoacidosis without coma associated with diabetes mellitus due to underlying condition (Primary Dx) 03/26/2017 [facility] General Surgery - Encounter 03/29/2017 after 03/11/2017 Immunizations Name Dates Previously Given Next Due Pneumococcal Conjugate 04/18/2017 13-Valent Tdap 01/16/2018 Family History Medical History Relation Name Comments Throat cancer Mother Relation Name Status Comments Mother Social History Date Tobacco Use Types Packs/Day Years Used Never Smoker Smokeless Tobacco: Never Used Alcohol Use Drinks/Week oz/Week Comments No Sex Assigned at Date Recorded Not on file Industry Job Start Date Occupation Not on file Not on file Not on file Travel End Travel History Travel Start No recent travel history available. Last Filed Vital Signs Time Taken Vital Sign Reading 03/04/2018 4:11 AM DERMATOLOGIST AND DERMATOPATHOLOGIST Blood Pressure 112/62 03/04/2018 4:11 AM DERMATOLOGIST AND DERMATOPATHOLOGIST Pulse 89 03/04/2018 4:11 AM DERMATOLOGIST AND DERMATOPATHOLOGIST Temperature 36.4 C (97.6 F) 03/04/2018 4:11 AM DERMATOLOGIST AND DERMATOPATHOLOGIST Respiratory Rate 16 03/04/2018 4:11 AM DERMATOLOGIST AND DERMATOPATHOLOGIST Oxygen Saturation 96% - Inhaled Oxygen - Concentration 03/01/2018 1:55 AM CDT Weight 81.6 kg (180 lb) 03/01/2018 1:55 AM CDT Height 167.6 cm (5' 6") 03/01/2018 1:55 AM CDT Body Mass Index 29.05 Plan of Treatment Care Team Description Date Type Specialty Emmanuel Garber MD [address] [facility] [address] [place] [address] 08/25/2018 Office Visit Urology Health Maintenance Due Date Last Done Comments DIABETIC RETINAL EYE EXAM 1970 MMR VACCINES (1 of - 1971 Standard series) DIABETIC FOOT EXAM 1980 URINE MICROALBUMIN 1980 VARICELLA VACCINES (1 of 1983 2 - 2-dose adolescent series) HEPATITIS B VACCINES (1 1989 of 3 - Risk 3-dose series) CERVICAL CANCER SCREENING 1991 INFLUENZA VACCINE 11/26/2017 IPV VACCINES Aged Out No longer eligible based on patient's age to complete this topic MENINGOCOCCAL VACCINE Aged Out No longer eligible based on patient's age to complete this topic Implants Device Identifier Shelf Expiration Date Model / Serial / Lot Implanted Type Area Manufactur er Vagus Nerve Stimulator Vns Pins Procedures Comments Procedure Name Priority Date/Time Associated Diagnosis POC GLUCOSE Routine 03/04/2018 10:49 AM DERMATOLOGIST AND DERMATOPATHOLOGIST POC GLUCOSE Routine 03/04/2018 5:39 AM DERMATOLOGIST AND DERMATOPATHOLOGIST POC GLUCOSE Routine 03/03/2018 6:52 PM DERMATOLOGIST AND DERMATOPATHOLOGIST POC GLUCOSE Routine 03/03/2018 11:38 AM DERMATOLOGIST AND DERMATOPATHOLOGIST POC GLUCOSE Routine 03/03/2018 7:30 AM DERMATOLOGIST AND DERMATOPATHOLOGIST ESTIMATED GFR Routine 03/03/2018 5:41 AM DERMATOLOGIST AND DERMATOPATHOLOGIST BASIC METABOLIC PANEL Routine 03/03/2018 5:41 AM DERMATOLOGIST AND DERMATOPATHOLOGIST POC GLUCOSE Routine 03/03/2018 5:40 AM DERMATOLOGIST AND DERMATOPATHOLOGIST POC GLUCOSE Routine 03/02/2018 8:23 PM DERMATOLOGIST AND DERMATOPATHOLOGIST POC GLUCOSE Routine 03/02/2018 4:46 PM DERMATOLOGIST AND DERMATOPATHOLOGIST POC GLUCOSE Routine 03/02/2018 12:15 PM DERMATOLOGIST AND DERMATOPATHOLOGIST POC GLUCOSE Routine 03/02/2018 10:21 AM DERMATOLOGIST AND DERMATOPATHOLOGIST POC GLUCOSE Routine 03/02/2018 9:50 AM DERMATOLOGIST AND DERMATOPATHOLOGIST POC GLUCOSE Routine 03/02/2018 6:07 AM DERMATOLOGIST AND DERMATOPATHOLOGIST POC GLUCOSE Routine 03/01/2018 8:32 PM DERMATOLOGIST AND DERMATOPATHOLOGIST POC GLUCOSE Routine 03/01/2018 4:30 PM DERMATOLOGIST AND DERMATOPATHOLOGIST POC GLUCOSE Routine 03/01/2018 7:42 AM DERMATOLOGIST AND DERMATOPATHOLOGIST URINE DRUGS OF ABUSE STAT 03/01/2018 SCREEN 6:00 AM DERMATOLOGIST AND DERMATOPATHOLOGIST URINALYSIS SCREEN AND STAT 03/01/2018 MICROSCOPY, WITH REFLEX 6:00 AM DERMATOLOGIST AND DERMATOPATHOLOGIST TO CULTURE GRAM STAIN STAT 03/01/2018 6:00 AM DERMATOLOGIST AND DERMATOPATHOLOGIST URINE CULTURE STAT 03/01/2018 6:00 AM DERMATOLOGIST AND DERMATOPATHOLOGIST HEMOGLOBIN A1C Routine 03/01/2018 1:33 AM CDT ESTIMATED GFR STAT 03/01/2018 1:33 AM CDT SALICYLATE LEVEL STAT 03/01/2018 1:33 AM CDT ACETAMINOPHEN LEVEL STAT 03/01/2018 1:33 AM CDT ALCOHOL LEVEL, BLOOD STAT 03/01/2018 1:33 AM CDT THYROID STIMULATING STAT 03/01/2018 HORMONE 1:33 AM CDT BASIC METABOLIC PANEL STAT 03/01/2018 1:33 AM CDT HC COMPLETE BLD COUNT STAT 03/01/2018 W/AUTO DIFF 1:33 AM CDT ECG ED PRELIMINARY Routine 03/01/2018 INTERPRETATION 1:16 AM CDT ECG 12-LEAD STAT 03/01/2018 1:15 AM CDT T4, FREE STAT 03/01/2018 1:00 AM CDT MICROSCOPIC EXAMINATION Routine 01/28/2018 3:59 PM CDT URINALYSIS, COMPLETE, Routine 01/28/2018 Urinary tract infection WITH REFLEX TO CULTURE 3:59 PM CDT without hematuria, site unspecified URINE CULTURE, Routine 01/28/2018 COMPREHENSIVE (YOJANA 3:59 PM CDT HIST) POC GLUCOSE Routine 01/18/2018 6:33 AM CDT POC GLUCOSE Routine 01/18/2018 5:36 AM CDT POC GLUCOSE Routine 01/17/2018 8:30 PM CDT POC GLUCOSE Routine 01/17/2018 4:01 PM CDT TROPONIN Timed 01/17/2018 12:05 PM CDT POC GLUCOSE Routine 01/17/2018 11:05 AM CDT TROPONIN Timed 01/17/2018 8:17 AM CDT POC GLUCOSE Routine 01/17/2018 5:40 AM CDT ECG 12-LEAD Routine 01/17/2018 4:22 AM CDT ESTIMATED GFR Timed 01/17/2018 4:10 AM CDT COMPREHENSIVE METABOLIC Timed 01/17/2018 PANEL 4:10 AM CDT HC COMPLETE BLD COUNT Timed 01/17/2018 W/AUTO DIFF 4:10 AM CDT TROPONIN Timed 01/17/2018 4:10 AM CDT PROLACTIN LEVEL Routine 01/17/2018 1:50 AM CDT URINALYSIS SCREEN AND STAT 01/17/2018 MICROSCOPY, WITH REFLEX 12:40 AM CDT TO CULTURE GRAM STAIN STAT 01/17/2018 12:40 AM CDT URINE CULTURE STAT 01/17/2018 12:40 AM CDT XR CHEST 1 VW PORTABLE STAT 01/17/2018 12:31 AM CDT ECG 12-LEAD STAT 01/16/2018 11:23 PM CDT XR SHOULDER 2+ VW LEFT STAT 01/16/2018 11:17 PM CDT XR ANKLE 3+ VW LEFT STAT 01/16/2018 11:17 PM CDT ECG ED PRELIMINARY Routine 01/16/2018 INTERPRETATION 11:14 PM CDT NC APPLY LOWER LEG SPLINT Routine 01/16/2018 11:[address] CERVICAL SPINE WO STAT 01/16/2018 CONTRAST 11:[address] HEAD WO CONTRAST STAT 01/16/2018 11:02 PM CDT ESTIMATED GFR STAT 01/16/2018 10:45 PM CDT HCG QUALITATIVE, SERUM STAT 01/16/2018 SCREEN 10:45 PM CDT COMPREHENSIVE METABOLIC STAT 01/16/2018 PANEL 10:45 PM CDT PARTIAL THROMBOPLASTIN STAT 01/16/2018 TIME (PTT) 10:45 PM CDT PROTHROMBIN TIME WITH INR STAT 01/16/2018 10:45 PM CDT HC COMPLETE BLD COUNT STAT 01/16/2018 W/AUTO DIFF 10:45 PM CDT POC GLUCOSE Routine 01/16/2018 10:18 PM CDT ZZESTIMATED GFR STAT 12/08/2017 5:45 PM CDT URINALYSIS SCREEN AND STAT 12/08/2017 MICROSCOPY, WITH REFLEX 5:45 PM CDT TO CULTURE LIPASE LEVEL STAT 12/08/2017 5:45 PM CDT HEPATIC FUNCTION PANEL STAT 12/08/2017 5:45 PM CDT BASIC METABOLIC PANEL STAT 12/08/2017 5:45 PM CDT HC COMPLETE BLD COUNT STAT 12/08/2017 W/AUTO DIFF 5:45 PM CDT GRAM STAIN STAT 12/08/2017 5:45 PM CDT URINE CULTURE STAT 12/08/2017 5:[address] RENAL STONE PROTOCOL STAT 12/08/2017 5:31 PM CDT ECG ED PRELIMINARY Routine 12/08/2017 INTERPRETATION 4:04 PM CDT ECG 12-LEAD STAT 12/08/2017 3:37 PM CDT XR KNEE 4+ VW LEFT STAT 11/19/2017 6:15 PM CDT ZZESTIMATED GFR STAT 11/19/2017 5:40 PM CDT TROPONIN STAT 11/19/2017 5:40 PM CDT COMPREHENSIVE METABOLIC STAT 11/19/2017 PANEL 5:40 PM CDT HC COMPLETE BLD COUNT STAT 11/19/2017 W/AUTO DIFF 5:[address] CERVICAL SPINE WO STAT 11/19/2017 CONTRAST 5:[address] HEAD WO CONTRAST STAT 11/19/2017 5:30 PM CDT MICROSCOPIC EXAMINATION Routine 07/21/2017 2:51 PM CDT URINALYSIS, COMPLETE, Routine 07/21/2017 Urinary tract infection WITH REFLEX TO CULTURE 2:51 PM CDT without hematuria, site unspecified URINE CULTURE, Routine 07/21/2017 COMPREHENSIVE (YOJANA 2:51 PM CDT HIST) GROUP A STREP, RAPID Routine 07/05/2017 ANTIGEN 5:25 PM DERMATOLOGIST AND DERMATOPATHOLOGIST INFLUENZA ANTIGEN Routine 07/05/2017 5:25 PM DERMATOLOGIST AND DERMATOPATHOLOGIST XR RIBS 2 VW RIGHT STAT 07/05/2017 5:03 PM DERMATOLOGIST AND DERMATOPATHOLOGIST XR CHEST 2 VW STAT 07/05/2017 5:03 PM DERMATOLOGIST AND DERMATOPATHOLOGIST STREP SCREEN CULTURE Routine 07/05/2017 4:25 PM DERMATOLOGIST AND DERMATOPATHOLOGIST POC GLUCOSE Routine 04/21/2017 8:59 AM DERMATOLOGIST AND DERMATOPATHOLOGIST POC GLUCOSE Routine 04/21/2017 6:44 AM DERMATOLOGIST AND DERMATOPATHOLOGIST ANTI XA, UNFRACTIONATED Routine 04/21/2017 6:05 AM DERMATOLOGIST AND DERMATOPATHOLOGIST PROTHROMBIN TIME WITH INR Routine 04/21/2017 6:05 AM DERMATOLOGIST AND DERMATOPATHOLOGIST POC GLUCOSE Routine 04/20/2017 9:32 PM DERMATOLOGIST AND DERMATOPATHOLOGIST PROTHROMBIN TIME WITH INR Routine 04/20/2017 11:23 AM DERMATOLOGIST AND DERMATOPATHOLOGIST ANTI XA, UNFRACTIONATED Routine 04/20/2017 11:23 AM DERMATOLOGIST AND DERMATOPATHOLOGIST POC GLUCOSE Routine 04/20/2017 5:36 AM DERMATOLOGIST AND DERMATOPATHOLOGIST ANTI XA, UNFRACTIONATED Routine 04/20/2017 4:50 AM DERMATOLOGIST AND DERMATOPATHOLOGIST PROTHROMBIN TIME WITH INR Routine 04/19/2017 10:00 PM DERMATOLOGIST AND DERMATOPATHOLOGIST ANTI XA, UNFRACTIONATED Routine 04/19/2017 10:00 PM DERMATOLOGIST AND DERMATOPATHOLOGIST POC GLUCOSE Routine 04/19/2017 9:51 PM DERMATOLOGIST AND DERMATOPATHOLOGIST ANTI XA, UNFRACTIONATED Routine 04/19/2017 1:50 PM DERMATOLOGIST AND DERMATOPATHOLOGIST POC GLUCOSE Routine 04/19/2017 5:52 AM DERMATOLOGIST AND DERMATOPATHOLOGIST ZZESTIMATED GFR Routine 04/19/2017 4:55 AM DERMATOLOGIST AND DERMATOPATHOLOGIST COMPREHENSIVE METABOLIC Routine 04/19/2017 PANEL 4:55 AM DERMATOLOGIST AND DERMATOPATHOLOGIST HC COMPLETE BLD COUNT Routine 04/19/2017 W/AUTO DIFF 4:55 AM DERMATOLOGIST AND DERMATOPATHOLOGIST POC GLUCOSE Routine 04/18/2017 8:11 PM DERMATOLOGIST AND DERMATOPATHOLOGIST ZZESTIMATED GFR STAT 04/18/2017 4:35 PM DERMATOLOGIST AND DERMATOPATHOLOGIST HCG QUALITATIVE, SERUM STAT 04/18/2017 SCREEN 4:35 PM DERMATOLOGIST AND DERMATOPATHOLOGIST PARTIAL THROMBOPLASTIN STAT 04/18/2017 TIME (PTT) 4:35 PM DERMATOLOGIST AND DERMATOPATHOLOGIST PROTHROMBIN TIME WITH INR STAT 04/18/2017 4:35 PM DERMATOLOGIST AND DERMATOPATHOLOGIST COMPREHENSIVE METABOLIC STAT 04/18/2017 PANEL 4:35 PM DERMATOLOGIST AND DERMATOPATHOLOGIST HC COMPLETE BLD COUNT STAT 04/18/2017 W/AUTO DIFF 4:35 PM DERMATOLOGIST AND DERMATOPATHOLOGIST US DUPLEX VENOUS LOWER STAT 04/18/2017 EXTREMITY LEFT 3:35 PM DERMATOLOGIST AND DERMATOPATHOLOGIST US RENAL Routine 04/18/2017 Recurrent UTI 1:38 PM DERMATOLOGIST AND DERMATOPATHOLOGIST MICROSCOPIC EXAMINATION Routine 04/08/2017 2:03 PM DERMATOLOGIST AND DERMATOPATHOLOGIST URINALYSIS, COMPLETE, Routine 04/08/2017 Recurrent UTI WITH REFLEX TO CULTURE 2:03 PM DERMATOLOGIST AND DERMATOPATHOLOGIST URINE CULTURE, Routine 04/08/2017 COMPREHENSIVE (YOJANA 2:03 PM DERMATOLOGIST AND DERMATOPATHOLOGIST HIST) POC GLUCOSE Routine 03/29/2017 11:11 AM DERMATOLOGIST AND DERMATOPATHOLOGIST POC GLUCOSE Routine 03/29/2017 5:50 AM DERMATOLOGIST AND DERMATOPATHOLOGIST POC GLUCOSE Routine 03/29/2017 12:04 AM DERMATOLOGIST AND DERMATOPATHOLOGIST POC GLUCOSE Routine 03/28/2017 8:34 PM DERMATOLOGIST AND DERMATOPATHOLOGIST POC GLUCOSE Routine 03/28/2017 5:13 PM DERMATOLOGIST AND DERMATOPATHOLOGIST POC GLUCOSE Routine 03/28/2017 11:01 AM DERMATOLOGIST AND DERMATOPATHOLOGIST POC GLUCOSE Routine 03/28/2017 9:56 AM DERMATOLOGIST AND DERMATOPATHOLOGIST ZZESTIMATED GFR Routine 03/28/2017 9:03 AM DERMATOLOGIST AND DERMATOPATHOLOGIST BASIC METABOLIC PANEL Routine 03/28/2017 9:03 AM DERMATOLOGIST AND DERMATOPATHOLOGIST POC GLUCOSE Routine 03/28/2017 7:43 AM DERMATOLOGIST AND DERMATOPATHOLOGIST POC GLUCOSE Routine 03/27/2017 8:59 PM DERMATOLOGIST AND DERMATOPATHOLOGIST POC GLUCOSE Routine 03/27/2017 5:09 PM DERMATOLOGIST AND DERMATOPATHOLOGIST POC GLUCOSE Routine 03/27/2017 1:51 PM DERMATOLOGIST AND DERMATOPATHOLOGIST POC GLUCOSE Routine 03/27/2017 12:08 PM DERMATOLOGIST AND DERMATOPATHOLOGIST POC GLUCOSE Routine 03/27/2017 10:43 AM DERMATOLOGIST AND DERMATOPATHOLOGIST POC GLUCOSE Routine 03/27/2017 8:46 AM DERMATOLOGIST AND DERMATOPATHOLOGIST ZZESTIMATED GFR Routine 03/27/2017 8:00 AM DERMATOLOGIST AND DERMATOPATHOLOGIST BASIC METABOLIC PANEL Routine 03/27/2017 8:00 AM DERMATOLOGIST AND DERMATOPATHOLOGIST POC GLUCOSE Routine 03/27/2017 6:06 AM DERMATOLOGIST AND DERMATOPATHOLOGIST POC GLUCOSE Routine 03/27/2017 5:19 AM DERMATOLOGIST AND DERMATOPATHOLOGIST ECG 12-LEAD STAT 03/27/2017 5:10 AM DERMATOLOGIST AND DERMATOPATHOLOGIST POC GLUCOSE Routine 03/27/2017 5:01 AM DERMATOLOGIST AND DERMATOPATHOLOGIST HEMOGLOBIN A1C Routine 03/27/2017 4:50 AM DERMATOLOGIST AND DERMATOPATHOLOGIST ZZESTIMATED GFR Routine 03/27/2017 4:14 AM DERMATOLOGIST AND DERMATOPATHOLOGIST IONIZED CALCIUM Routine 03/27/2017 4:14 AM DERMATOLOGIST AND DERMATOPATHOLOGIST PHOSPHORUS LEVEL Routine 03/27/2017 4:14 AM DERMATOLOGIST AND DERMATOPATHOLOGIST MAGNESIUM LEVEL Routine 03/27/2017 4:14 AM DERMATOLOGIST AND DERMATOPATHOLOGIST COMPREHENSIVE METABOLIC Routine 03/27/2017 PANEL 4:14 AM DERMATOLOGIST AND DERMATOPATHOLOGIST HC COMPLETE BLD COUNT Routine 03/27/2017 W/AUTO DIFF 4:14 AM DERMATOLOGIST AND DERMATOPATHOLOGIST POC GLUCOSE Routine 03/27/2017 4:04 AM DERMATOLOGIST AND DERMATOPATHOLOGIST POC GLUCOSE Routine 03/27/2017 3:03 AM DERMATOLOGIST AND DERMATOPATHOLOGIST POC GLUCOSE Routine 03/27/2017 2:05 AM DERMATOLOGIST AND DERMATOPATHOLOGIST POC GLUCOSE Routine 03/27/2017 1:04 AM DERMATOLOGIST AND DERMATOPATHOLOGIST ZZESTIMATED GFR Routine 03/27/2017 12:25 AM DERMATOLOGIST AND DERMATOPATHOLOGIST BASIC METABOLIC PANEL Routine 03/27/2017 12:25 AM DERMATOLOGIST AND DERMATOPATHOLOGIST POC GLUCOSE Routine 03/27/2017 12:18 AM DERMATOLOGIST AND DERMATOPATHOLOGIST POC GLUCOSE Routine 03/26/2017 11:36 PM DERMATOLOGIST AND DERMATOPATHOLOGIST POC GLUCOSE Routine 03/26/2017 10:09 PM DERMATOLOGIST AND DERMATOPATHOLOGIST ARTERIAL BLOOD GAS STAT 03/26/2017 9:14 PM DERMATOLOGIST AND DERMATOPATHOLOGIST URINALYSIS SCREEN AND STAT 03/26/2017 MICROSCOPY, WITH REFLEX 8:43 PM DERMATOLOGIST AND DERMATOPATHOLOGIST TO CULTURE GRAM STAIN STAT 03/26/2017 8:43 PM DERMATOLOGIST AND DERMATOPATHOLOGIST URINE CULTURE STAT 03/26/2017 8:43 PM DERMATOLOGIST AND DERMATOPATHOLOGIST ZZESTIMATED GFR STAT 03/26/2017 8:15 PM DERMATOLOGIST AND DERMATOPATHOLOGIST COMPREHENSIVE METABOLIC STAT 03/26/2017 PANEL 8:15 PM DERMATOLOGIST AND DERMATOPATHOLOGIST PARTIAL THROMBOPLASTIN STAT 03/26/2017 TIME (PTT) 8:15 PM DERMATOLOGIST AND DERMATOPATHOLOGIST PROTHROMBIN TIME WITH INR STAT 03/26/2017 8:15 PM DERMATOLOGIST AND DERMATOPATHOLOGIST HC COMPLETE BLD COUNT STAT 03/26/2017 W/AUTO DIFF 8:15 PM DERMATOLOGIST AND DERMATOPATHOLOGIST ECG 12-LEAD Routine 03/26/2017 7:07 PM DERMATOLOGIST AND DERMATOPATHOLOGIST POC GLUCOSE Routine 03/26/2017 6:56 PM DERMATOLOGIST AND DERMATOPATHOLOGIST after 03/11/2017 Results * POC glucose (03/04/2018 10:49 AM DERMATOLOGIST AND DERMATOPATHOLOGIST) Only the most recent of 54 results within the time period is included. POC glucose 251 (H) 65 - 99 mg/dL [facility] DEPARTMENT OF Comment: PATHOLOGY AND Meter ID: [id number] GENOMIC MEDICINE Climate Change Risk Assessor: Debora Steel Performing Organization Address City/State/Zipcode Phone Number [facility] [address] [place] [address] PATHOLOGY AND GENOMIC MEDICINE * Estimated GFR (03/03/2018 5:41 AM DERMATOLOGIST AND DERMATOPATHOLOGIST) Only the most recent of 4 results within the time period is included. Estimated GFR >=90 mL/min/1.73 m2 [facility] DEPARTMENT OF Comment: PATHOLOGY AND [facility] GENOMIC MEDICINE rpretation G1 >=90 Normal or high G2 60-89Mildly decreased [id number] Mildly to moderately decreased [id number] Moderately to severely decreased G4 15-29Severely decreased G5 <15Kidney failure The eGFR was calculated using the Chronic Kidney Disease Epidemiology Collaboration (CKD-EPI) equation. Interpretation is based on recommendations of the National Kidney Foundation-Kidney Disease Outcomes Quality Initiative (NKF-KDOQI) published in 2014. Specimen Plasma specimen Performing Organization Address [facility] Phone Number [address] [place] [address] PATHOLOGY AND [facility] * Basic metabolic panel (03/03/2018 5:41 AM DERMATOLOGIST AND DERMATOPATHOLOGIST) Only the most recent of 6 results within the time period is included. Sodium 139 135 - 148 mEq/L [facility] DEPARTMENT OF PATHOLOGY AND [facility] Potassium 4.1 3.5 - 5.0 mEq/L [facility] DEPARTMENT OF PATHOLOGY AND GENOMIC MEDICINE Chloride 101 98 - 112 mEq/L [facility] DEPARTMENT OF PATHOLOGY AND [facility] CO2 27 24 - 31 mEq/L [facility] OF PATHOLOGY AND [facility] Anion gap 11@ANIO 7 - 15 mEq/L [facility] DEPARTMENT OF PATHOLOGY AND GENOMIC MEDICINE BUN 13 6 - 20 mg/dL [facility] DEPARTMENT OF PATHOLOGY AND GENOMIC MEDICINE Creatinine 0.70 0.50 - 0.90 mg/dL [facility] DEPARTMENT OF PATHOLOGY AND GENOMIC MEDICINE Glucose 142 (H) 65 - 99 mg/dL [facility] DEPARTMENT OF PATHOLOGY AND GENOMIC MEDICINE Calcium 9.7 8.3 - 10.2 mg/dL [facility] DEPARTMENT OF PATHOLOGY AND [facility] Specimen Plasma specimen Performing Organization Address [facility] Cent[facility]ode Phone Number [facility] OF [address] [place] [address] [place] [address] PATHOLOGY AND [facility] * Urinalysis screen and microscopy, with reflex to culture (03/01/2018 6:00 AM DERMATOLOGIST AND DERMATOPATHOLOGIST) Only the most recent of 4 results within the time period is included. Specimen site Clean catch [facility] DEPARTMENT OF PATHOLOGY AND GENOMIC MEDICINE Color, UA Yellow [facility] DEPARTMENT OF PATHOLOGY AND GENOMIC MEDICINE Appearance, UA Slightly-Cloudy [facility] DEPARTMENT OF PATHOLOGY AND GENOMIC MEDICINE Specific gravity, UA 1.012 1.001 - 1.035 [facility] DEPARTMENT OF PATHOLOGY AND GENOMIC MEDICINE pH, UA 5.0 5.0 - 8.5 [facility] DEPARTMENT OF PATHOLOGY AND GENOMIC MEDICINE Protein, UA Negative Negative [facility] DEPARTMENT OF PATHOLOGY AND GENOMIC MEDICINE Glucose, UA 3+ (A) Negative [facility] DEPARTMENT OF PATHOLOGY AND GENOMIC MEDICINE Ketones, UA Negative Negative [facility] DEPARTMENT OF PATHOLOGY AND GENOMIC MEDICINE Bilirubin, UA Negative Negative [facility] DEPARTMENT OF PATHOLOGY AND GENOMIC MEDICINE Blood, UA Negative Negative [facility] DEPARTMENT OF PATHOLOGY AND GENOMIC MEDICINE Nitrite, UA Negative Negative [facility] DEPARTMENT OF PATHOLOGY AND GENOMIC MEDICINE Urobilinogen, UA Negative <2.0 [facility] DEPARTMENT OF PATHOLOGY AND GENOMIC MEDICINE Leukocyte esterase, UA Small (A) Negative [facility] DEPARTMENT OF PATHOLOGY AND GENOMIC MEDICINE Round epithelial cells, Few 0 - 1 /HPF [facility] DEPARTMENT OF PATHOLOGY AND GENOMIC MEDICINE WBC, UA 11-20 (H) 0 - 4 /HPF [facility] DEPARTMENT OF PATHOLOGY AND GENOMIC MEDICINE RBC, UA 0-5 0 - 5 /HPF [facility] DEPARTMENT OF PATHOLOGY AND GENOMIC MEDICINE Bacteria, UA Trace None seen [facility] DEPARTMENT OF PATHOLOGY AND GENOMIC MEDICINE Yeast, UA None seen [facility] DEPARTMENT OF PATHOLOGY AND GENOMIC MEDICINE Yeast with pseudohyphae, None seen [facility] PATHOLOGY AND GENOMIC MEDICINE Specimen Urine Performing Organization Address City/State/Zipcode Phone Number [facility] [address] [place] [address] PATHOLOGY AND GENOMIC MEDICINE * Urine drugs of abuse screen (03/01/2018 6:00 AM DERMATOLOGIST AND DERMATOPATHOLOGIST) Amphetamine screen, urine Negative [facility] DEPARTMENT OF PATHOLOGY AND GENOMIC MEDICINE Methamphetamine screen, Negative [facility] DEPARTMENT OF urine PATHOLOGY AND GENOMIC MEDICINE Barbiturate screen, urine Negative [facility] DEPARTMENT OF PATHOLOGY AND GENOMIC MEDICINE Benzodiazepine screen, Positive (A) [facility] DEPARTMENT OF urine PATHOLOGY AND GENOMIC MEDICINE Cocaine screen, urine Negative [facility] DEPARTMENT OF PATHOLOGY AND GENOMIC MEDICINE Methadone screen, urine Negative [facility] DEPARTMENT OF PATHOLOGY AND GENOMIC MEDICINE Opiates screen, urine Negative [facility] DEPARTMENT OF PATHOLOGY AND GENOMIC MEDICINE Phencyclidine screen, Negative [facility] DEPARTMENT OF urine PATHOLOGY AND GENOMIC MEDICINE Cannabinoid screen, urine Negative [facility] DEPARTMENT OF PATHOLOGY AND GENOMIC MEDICINE Tricyclic screen, urine Negative [facility] DEPARTMENT OF Comment: PATHOLOGY AND Drug screen minimum GENOMIC MEDICINE concentration of detectability Amphetamines 1000 ng/mL Methamphetamines 1000 ng/mL Barbiturates 300 ng/mL Benzodiazepines 300 ng/mL Cocaine 300 ng/mL Methadone 300 ng/mL Opiates 300 ng/mL Phencyclidine 25 ng/mL Cannabinoids 50 ng/mL Tricyclics 1000 ng/mL Negative test results indicates presumptive evidence of lack of clinically significant drug concentration in this urine specimen. Positive test results are presumptive evidence of clinically significant drug concentration in this urine specimen. Testing performed for medical purposes only. Specimen Urine Performing Organization Address City/State/Zipcode Phone Number [facility] [address] [place] [address] PATHOLOGY AND GENOMIC MEDICINE * Gram stain (03/01/2018 6:00 AM DERMATOLOGIST AND DERMATOPATHOLOGIST) Only the most recent of 4 results within the time period is included. Gram stain result Occasional Gram negative rods [facility] DEPARTMENT OF Rare WBC's PATHOLOGY AND Comment: GENOMIC MEDICINE Specimen Information Specimen Source: Urine Specimen Site: Clean catch Specimen Urine Performing Organization Address City/State/Zipcode Phone Number [facility] DEPARTMENT OF [address] [place] [address] PATHOLOGY AND GENOMIC MEDICINE * Urine culture (03/01/2018 6:00 AM DERMATOLOGIST AND DERMATOPATHOLOGIST) Only the most recent of 4 results within the time period is included. Urine culture isolate Escherichia coli [facility] DEPARTMENT OF >10-5 cfu/ml PATHOLOGY AND The performance GENOMIC MEDICINE characteristics of this assay on this isolate were validated by the Microbiology Laboratory at [facility].This source has not been approved by the U.S. Food and Drug Administration.The results are not intended to be used as the sole means for clinical diagnosis or patient management.The Microbiology Laboratory is authorized under the clinical Laboratory Improvement Amendments of 1988 (CLIA-88) to perform high complexity testing. This isolate is a newscast producer of ESBL (extended spectrum beta lactamase).This organism may be clinically resistant to penicillins, cephalosporins or aztreonam despite apparent in vitro susceptibility to some of these agents. (A) Comment: Specimen Information Specimen Source: Urine Specimen Site: Clean catch Specimen Urine Antibiotic Method Susceptibility Organism Ampicillin BREONNA >16 mcg/mL: Resistant Escherichia coli Amoxicillin/Clavulanate BREONNA 16/8 mcg/mL: Resistant Escherichia coli Amikacin BREONNA <=4 mcg/mL: Susceptible Escherichia coli Aztreonam BREONNA >16 mcg/mL: Resistant Escherichia coli Ceftazidime RBEONNA 16 mcg/mL: Resistant Escherichia coli Ciprofloxacin BREONNA >2 mcg/mL: Resistant Escherichia coli Ceftriaxone BREONNA >32 mcg/mL: Resistant Escherichia coli Cefuroxime Sodium BREONNA >16 mcg/mL: Resistant Escherichia coli Cefazolin BREONNA >32 mcg/mL: Resistant Escherichia coli Cefepime BREONNA >16 mcg/mL: Resistant Escherichia coli Nitrofurantoin BREONNA >64 mcg/mL: Resistant Escherichia coli Gentamicin BREONNA >8 mcg/mL: Resistant Escherichia coli Imipenem BREONNA <=0.25 mcg/mL: Susceptible Escherichia coli Levofloxacin BREONNA >4 mcg/mL: Resistant Escherichia coli Meropenem BREONNA <=0.125 mcg/mL: Susceptible Escherichia coli Tobramycin BREONNA >8 mcg/mL: Resistant Escherichia coli Ampicillin/Sulbactam BREONNA >16/8 mcg/mL: Resistant Escherichia coli Trimethoprim/Sulfamethoxazole BREONNA >2/38 mcg/mL: Resistant Escherichia coli Tetracycline BREONNA <=1 mcg/mL: Susceptible Escherichia coli Ertapenem BREONNA <=0.125 mcg/mL: Susceptible Escherichia coli Tigecycline BREONNA <=0.5 mcg/mL: Susceptible Escherichia coli Cefotaxime BREONNA mcg/mL: Resistant Escherichia coli Cephalothin BREONNA mcg/mL: Resistant Escherichia coli Fosfomycin KB mm: Susceptible Escherichia coli Performing Organization Address City/State/Zipcode Phone Number [facility] DEPARTMENT OF [address] [place] [address] PATHOLOGY AND GENOMIC MEDICINE * CBC with platelet and differential (03/01/2018 1:33 AM CDT) Only the most recent of 9 results within the time period is included. WBC 5.91 4.50 - 11.00 k/uL [facility] DEPARTMENT OF PATHOLOGY AND GENOMIC MEDICINE RBC 5.11 4.20 - 5.50 m/uL [facility] DEPARTMENT OF PATHOLOGY AND GENOMIC MEDICINE HGB 14.6 12.0 - 16.0 g/dL [facility] DEPARTMENT OF PATHOLOGY AND GENOMIC MEDICINE HCT 43.6 37.0 - 47.0 % [facility] DEPARTMENT OF PATHOLOGY AND GENOMIC MEDICINE MCV 85.3 82.0 - 100.0 fL [facility] DEPARTMENT OF PATHOLOGY AND GENOMIC MEDICINE MCH 28.6 27.0 - 34.0 pg [facility] DEPARTMENT OF PATHOLOGY AND GENOMIC MEDICINE MCHC 33.5 31.0 - 37.0 g/dL [facility] DEPARTMENT OF PATHOLOGY AND GENOMIC MEDICINE RDW - SD 38.5 37.0 - 55.0 fL [facility] DEPARTMENT OF PATHOLOGY AND GENOMIC MEDICINE MPV 10.8 8.8 - 13.2 fL [facility] OF PATHOLOGY AND GENOMIC MEDICINE Platelet count 162 150 - 400 k/uL [facility] DEPARTMENT OF PATHOLOGY AND GENOMIC MEDICINE Nucleated RBC 0.00 /100 WBC [facility] DEPARTMENT OF PATHOLOGY AND GENOMIC MEDICINE Neutrophils 72.1 (H) 39.0 - 69.0 % [facility] DEPARTMENT OF PATHOLOGY AND GENOMIC MEDICINE Lymphocytes 20.0 (L) 25.0 - 45.0 % [facility] DEPARTMENT OF PATHOLOGY AND GENOMIC MEDICINE Monocytes 7.1 0.0 - 10.0 % [facility] PATHOLOGY AND GENOMIC MEDICINE Eosinophils 0.0 0.0 - 5.0 % [facility] PATHOLOGY AND GENOMIC MEDICINE Basophils 0.5 0.0 - 1.0 % [facility] PATHOLOGY AND GENOMIC MEDICINE Specimen Blood Performing Organization Address City[facility] Phone Number [address] [place] [address] PATHOLOGY [facility] * Thyroid stimulating hormone (03/01/2018 1:33 AM CDT) TSH 4.26 (H) 0.27 - 4.20 uIU/mL [facility] PATHOLOGY AND GENOMIC MEDICINE Specimen Plasma specimen Performing Organization Address [facility] Phone Number [address] [place] [address] PATHOLOGY [facility] * Hemoglobin A1c (03/01/2018 1:33 AM CDT) Only the most recent of 2 results within the time period is included. Hemoglobin A1C 8.9 (H) 4.0 - 6.0 % [facility] DEPARTMENT OF Comment: PATHOLOGY AND GENOMIC MEDICINE Less than 6% - Goal of therapy for Type II Diabetes Less than 7%-Goal of therapy for Type I Diabetes Less than 8%-Accepta ble control for Type I or Type II Diabetes Greater than 8%-Unacceptabl e control; action indicated. ([id number]) Specimen Blood Performing Organization Address [facility] Phone Number [address] [place] [address] PATHOLOGY AND GENOMIC MEDICINE * Alcohol level, blood (03/01/2018 1:33 AM CDT) Alcohol None Detected mg/dL [facility] DEPARTMENT OF Comment: PATHOLOGY AND Normal GENOMIC MEDICINE None Detected Legal Intoxication in [place]80 mg/dL (0.08%) - Whole Blood Toxic Concentration 200 mg/dL (0.2%) Potentially Fatal3 50 - 500 mg/dL (0.35 - 0.5%) Alcohol percent None Detected % [facility] DEPARTMENT PATHOLOGY AND GENOMIC MEDICINE Specimen Plasma specimen Performing Organization Address [facility] [place] Number [address] [place] [address] PATHOLOGY AND GENOMIC MEDICINE * Acetaminophen level (03/01/2018 1:33 AM CDT) Acetaminophen level <15.0 10.0 - 30.0 ug/mL [facility] DEPARTMENT OF Comment: PATHOLOGY AND Therapeutic GENOMIC MEDICINE 10-30 ug/mL Possible Toxicity 150-200 ug/mL Probable Toxicity >200 ug/mL Specimen Plasma specimen Performing Organization Address [facility] Number [address] [place] [address] PATHOLOGY AND [facility] * Salicylate level (03/01/2018 1:33 AM CDT) Salicylate <0.3 (L) 3.0 - 30.0 mg/dL [facility] DEPARTMENT OF PATHOLOGY AND GENOMIC MEDICINE Specimen Plasma specimen Performing Organization Address [facility] Phone Number [address] [place] [address] PATHOLOGY AND GENOMIC MEDICINE * ECG ED Preliminary Interpretation - NOT AN ORDER (03/01/2018 1:16 AM CDT) Only the most recent of 3 results within the time period is included. Narrative Performed At Olvin Garza MD 03/01/20182:09 PM ECG ED Preliminary Interpretation - Not an Order Performed by: ATUL RIVERA Authorized by: ATUL RIVERA ECG reviewed by ED Physician in the absence of a waredresser: yes Interpretation: Interpretation: abnormal Rate: ECG rate:101 ECG rate assessment: tachycardic Rhythm: Rhythm: sinus tachycardia Ectopy: Ectopy: none QRS: QRS axis:Normal Conduction: Conduction: normal ST segments: ST segments:Normal T waves: T waves: normal * ECG 12 lead (03/01/2018 1:15 AM CDT) Only the most recent of 6 results within the time period is included. Ventricular rate 101 [facility] Atrial rate 101 [facility] NC interval 198 [facility] QRSD interval 98 [facility] QT interval 368 [facility] QTC interval 477 [facility] P axis 1 63 [facility] QRS axis 1 52 [facility] T wave axis 62 [facility] EKG impression Sinus tachycardia-Possible [facility] Left atrial enlargement-Borderline ECG-In automated comparison with ECG of 17-JAN-2018 04:22,-No significant change was found- Performing Organization Address City[facility] Phone Number [facility] [address] [place] [address] * T4, free (03/01/2018 1:00 AM CDT) T4, free 0.78 (L) 0.90 - 1.70 ng/dL [facility] DEPARTMENT OF PATHOLOGY AND GENOMIC MEDICINE Specimen Plasma specimen Performing Organization Address City[facility] Phone Number [address] [address] PATHOLOGY AND GENOMIC MEDICINE * Urine Culture, Comprehensive (01/28/2018 3:59 PM CDT) Only the most recent of 3 results within the time period is included. Urine culture Escherichia coli [facility] Greater than 100,000 colony forming units per mL (A)Comment: Multi-Drug Resistant Organism Narrative Performed At Performed at: - [facility] [address] [place], [place] [id number] Center Sales And Service Associate: Jose Acevedo MD, Phone:[phone] Antibiotic Method Susceptibility Organism Amikacin S ug/mL: Susceptible Escherichia coli Amoxicillin/Clavulanate I ug/mL: Intermediate Escherichia coli Ampicillin R ug/mL: Resistant Escherichia coli Ampicillin/Sulbactam R ug/mL: Resistant Escherichia coli Cefazolin R ug/mL: Resistant Escherichia coli Cefepime R ug/mL: Resistant Escherichia coli Cefotaxime R ug/mL: Resistant Escherichia coli Ceftazidime R ug/mL: Resistant Escherichia coli Ceftriaxone R ug/mL: Resistant Escherichia coli Cefuroxime R ug/mL: Resistant Escherichia coli Ciprofloxacin R ug/mL: Resistant Escherichia coli Ertapenem S ug/mL: Susceptible Escherichia coli Gentamicin R ug/mL: Resistant Escherichia coli Imipenem S ug/mL: Susceptible Escherichia coli Levofloxacin R ug/mL: Resistant Escherichia coli Meropenem S ug/mL: Susceptible Escherichia coli Nitrofurantoin R ug/mL: Resistant Escherichia coli Piperacillin/Tazobactam S ug/mL: Susceptible Escherichia coli Tetracycline S ug/mL: Susceptible Escherichia coli Tigecycline S ug/mL: Susceptible Escherichia coli Tobramycin R ug/mL: Resistant Escherichia coli Trimethoprim/Sulfamethoxazole R ug/mL: Resistant Escherichia coli Comment: Performed at: [id number] Center Sales And Service Associate: Jose Aceveod MD, Phone:[phone] Performing Organization Address [facility] Phone Number [facility] * URINALYSIS, COMPLETE, WITH REFLEX TO CULTURE (01/28/2018 3:59 PM CDT) Only the most recent of 3 results within the time period is included. Specific gravity, urine 1.025 1.005 - 1.030 [facility] pH, urine 6.5 5.0 - 7.5 [facility] Color, UA Yellow Yellow [facility] Appearance Clear Clear [facility] WBC esterase, urine Trace (A) Negative [facility] Protein, UA Negative Negative/Trace [facility] Glucose, urine 3+ (A) Negative [facility] Ketones, UA Negative Negative [facility] Occult blood, urine Negative Negative [facility] Bilirubin, UA Negative Negative [facility] Urobilinogen, UA 0.2 0.2 - 1.0 mg/dL [facility] Nitrite, UA Positive (A) Negative [facility] Microscopic examination See below:Comment: Microscopic [facility] was indicated and was performed. Urinalysis reflex CommentComment: This specimen [facility] has reflexed to a Urine Culture. Narrative Performed At Performed at:[id number] Center Sales And Service Associate: Jose Acevedo MD, Phone:[phone] Performing Organization Address [facility] Phone Number [facility] * Microscopic Examination (01/28/2018 3:59 PM CDT) Only the most recent of 3 results within the time period is included. WBC, UA 0-5 0 - 5 /hpf [facility] RBC, UA 0-2 0 - 2 /hpf [facility] Epithelial cells (non 0-10 0 - 10 /hpf [facility] renal) Casts Present (A) None seen /lpf [facility] Cast type Hyaline casts N/A [facility] Mucus, UA Present Not Estab. [facility] Bacteria, UA Moderate (A) None seen/Few [facility] Narrative Performed At Performed at:01 - [facility] [address] [place], [id number] Center Sales And Service Associate: Jose Acevedo MD, Phone:[phone] Performing Organization Address [facility] Phone Number [facility] * Troponin (01/17/2018 12:05 PM CDT) Only the most recent of 4 results within the time period is included. Troponin <0.300 0.000 - 0.300 ng/mL [facility] DEPARTMENT OF Comment: PATHOLOGY AND 0.30 - 1.49 GENOMIC MEDICINE ng/mlMay indicate increased risk of acute coronary syndrome. >=1.5 ng/ml Consistent with acute myocardial infarction. The diagnostic value of a single normal or non-diagnostic result is questionable.Serial samples at 2-6 hour intervals are required to rule out acute myocardial injury. Specimen Plasma specimen Performing Organization Address [facility] Phone Number [facility] DEPARTMENT [id number] [place] [address] [place] [address] PATHOLOGY AND GENOMIC MEDICINE * Comprehensive metabolic panel (01/17/2018 4:10 AM CDT) Only the most recent of 7 results within the time period is included. Sodium 140 135 - 148 mEq/L [facility] DEPARTMENT OF PATHOLOGY AND GENOMIC MEDICINE Potassium 3.7 3.5 - 5.0 mEq/L [facility] DEPARTMENT OF PATHOLOGY AND GENOMIC MEDICINE Chloride 100 98 - 112 mEq/L [facility] DEPARTMENT OF PATHOLOGY AND GENOMIC MEDICINE CO2 31 24 - 31 mEq/L [facility] DEPARTMENT OF PATHOLOGY AND GENOMIC MEDICINE Anion gap 9@ANIO 7 - 15 mEq/L [facility] DEPARTMENT OF PATHOLOGY AND GENOMIC MEDICINE BUN 18 6 - 20 mg/dL [facility] DEPARTMENT OF PATHOLOGY AND GENOMIC MEDICINE Creatinine 0.80 0.50 - 0.90 mg/dL [facility] DEPARTMENT OF PATHOLOGY AND GENOMIC MEDICINE Glucose 228 (H) 65 - 99 mg/dL [facility] DEPARTMENT OF PATHOLOGY AND GENOMIC MEDICINE Calcium 9.4 8.3 - 10.2 mg/dL [facility] DEPARTMENT OF PATHOLOGY AND GENOMIC MEDICINE Protein 6.1 (L) 6.3 - 8.3 g/dL [facility] DEPARTMENT OF Comment: PATHOLOGY AND GENOMIC MEDICINE 4.6-7.0 g/dL 1 week 4.4-7.6 g/dL 7 months-1year 5.1-7.3 g/dL 1-2 years5.6-7 .5 g/dL >3 years6.0-8 .0 g/dL 18-150 6.3-8.3 g/dL Albumin 3.9 3.5 - 5.0 g/dL [facility] DEPARTMENT OF PATHOLOGY AND GENOMIC MEDICINE A/G ratio 1.8 0.7 - 3.8 [facility] DEPARTMENT OF PATHOLOGY AND GENOMIC MEDICINE Alkaline phosphatase 158 (H) 35 - 104 U/L [facility] DEPARTMENT OF PATHOLOGY AND GENOMIC MEDICINE AST 36 (H) 10 - 35 U/L [facility] DEPARTMENT OF PATHOLOGY AND GENOMIC MEDICINE ALT 35 5 - 50 U/L [facility] DEPARTMENT OF PATHOLOGY AND GENOMIC MEDICINE Total bilirubin 0.2 0.0 - 1.2 mg/dL [facility] DEPARTMENT OF PATHOLOGY AND GENOMIC MEDICINE Specimen Plasma specimen Performing Organization Address City/[facility]/Zipcode Phone Number [facility] [address] [place] [address] PATHOLOGY AND GENOMIC MEDICINE * Prolactin level (01/17/2018 1:50 AM CDT) Prolactin 18 5 - 23 ng/mL [facility] DEPARTMENT OF PATHOLOGY AND GENOMIC MEDICINE Specimen Plasma specimen Performing Organization Address City/[facility]/Zipcode Phone Number [facility] DEPARTMENT OF [address] [place] [address] PATHOLOGY AND GENOMIC MEDICINE * XR Chest 1 Vw Portable (01/17/2018 12:31 AM CDT) Narrative Performed At EXAMINATION: XR CHEST 1 VW PORTABLE [facility] CLINICAL HISTORY: fall COMPARISON:07/05/2017 chest x-ray. IMPRESSION: The lungs are clear. No pleural effusion or pneumothorax. The cardiomediastinal silhouette is normal. Left chest cardiac device. No acute osseous abnormalities. [facility]-[id number] Procedure Note Interface, Radiology Results Incoming - 01/17/2018 12:37 AM CDT EXAMINATION: XR CHEST 1 VW PORTABLE CLINICAL HISTORY: fall COMPARISON: 07/05/2017 chest x-ray. IMPRESSION: The lungs are clear. No pleural effusion or pneumothorax. The cardiomediastinal silhouette is normal. Left chest cardiac device. No acute osseous abnormalities. [facility]-[id number] Performing Organization Address [facility] Phone Number [facility] [address] [place] [address] * XR Shoulder 2+ Vw Left (01/16/2018 11:17 PM CDT) Narrative Performed At EXAMINATION:XR SHOULDER 2VW LEFT [facility] CLINICAL HISTORY:FALL COMPARISON:None. IMPRESSION: No evidence of acute left shoulder fracture or dislocation. Soft tissues are unremarkable. Medical nerve stimulator is partially visualized. [facility]-[id number] Procedure Note Interface, Radiology Results Incoming - 01/16/2018 11:22 PM CDT EXAMINATION: XR SHOULDER 2 VW LEFT CLINICAL HISTORY: FALL COMPARISON: None. IMPRESSION: No evidence of acute left shoulder fracture or dislocation. Soft tissues are unremarkable. Medical nerve stimulator is partially visualized. [facility]-[id number] Performing Organization Address [facility] Phone Number [facility] [address] [place] [address] * XR Ankle 3+ Vw Left (01/16/2018 11:17 PM CDT) Narrative Performed At XR ANKLE 3VW LEFT [facility] CLINICAL INDICATION:Fractureankle COMPARISON:None. IMPRESSION: There is a small curvilinear ossific fragment adjacent to the lateral malleolus, suggestive of a minimally displaced avulsion fracture. No other acute fracture is identified. The ankle mortise is symmetric. There is soft tissue swelling at the lateral aspect of the ankle. There are calcaneal enthesophytes. [facility]-[id number] Procedure Note Interface, Radiology Results Incoming - 01/16/2018 11:24 PM CDT XR ANKLE 3 VW LEFT CLINICAL INDICATION: Fracture ankle COMPARISON: None. IMPRESSION: There is a small curvilinear ossific fragment adjacent to the lateral malleolus, suggestive of a minimally displaced avulsion fracture. No other acute fracture is identified. The ankle mortise is symmetric. There is soft tissue swelling at the lateral aspect of the ankle. There are calcaneal enthesophytes. [id number] Performing Organization Address City/State/Zipcode Phone Number [facility] [address] [place] [address] * SPLINT APPLICATION (01/16/2018 11:14 PM CDT) Narrative Performed At LEONIDAS Orozco 01/17/20184:40 AM Splint Application Performed by: ULI ORTEGA Authorized by: CHACHA MALONE Consent: Consent obtained:Verbal Consent given by:Patient Risks discussed:Discoloration, numbness, pain and swelling Alternatives discussed:Referral, observation, alternative treatment, delayed treatment and no treatment Pre-procedure details: Sensation:Normal Skin color:[place] Procedure details: Laterality:Left Location:Ankle Ankle:L ankle Splint type:Short leg Supplies:Cotton padding, elastic bandage and Ortho-Glass Post-procedure details: Pain:Improved Sensation:Normal Skin color:[place] Patient tolerance of procedure:Tolerated well, no immediate complications * CT Cervical Spine Wo Contrast (01/16/2018 11:02 PM CDT) Only the most recent of 2 results within the time period is included. Narrative Performed At EXAMINATION: CT CERVICAL SPINE WO CONTRAST [facility] CLINICAL HISTORY: FALL COMPARISON:None TECHNIQUE: Noncontrast enhanced imaging through the cervical spine was performed with coronal and sagittal reconstructed images. CT scans are performed using radiation dose reduction techniques (iterative reconstruction and/or automated exposure control). Technical factors are evaluated and adjusted to ensure appropriate moderation of exposure. Automated dose management technology is applied to adjust radiation exposure while achieving a diagnostic quality image. FINDINGS: Cervical lordosis is maintained.No acute fractures or subluxations.No soft tissue abnormalities are seen. No significant posterior disc disease, spinal canal or neural foraminal stenosis. IMPRESSION: No acute osseous abnormality of the cervical spine. [facility]-[id number] Procedure Note Hm Interface, Radiology Results Incoming - 01/16/2018 11:15 PM CDT EXAMINATION: CT CERVICAL SPINE WO CONTRAST CLINICAL HISTORY: FALL COMPARISON: None TECHNIQUE: Noncontrast enhanced imaging through the cervical spine was performed with coronal and sagittal reconstructed images. CT scans are performed using radiation dose reduction techniques (iterative reconstruction and/or automated exposure control). Technical factors are evaluated and adjusted to ensure appropriate moderation of exposure. Automated dose management technology is applied to adjust radiation exposure while achieving a diagnostic quality image. FINDINGS: Cervical lordosis is maintained. No acute fractures or subluxations. No soft tissue abnormalities are seen. No significant posterior disc disease, spinal canal or neural foraminal stenosis. IMPRESSION: No acute osseous abnormality of the cervical spine. [facility]-[id number] Performing Organization Address City/State/Zipcode Phone Number [facility] [address] [place] [address] * CT Head Wo Contrast (01/16/2018 11:02 PM CDT) Only the most recent of 2 results within the time period is included. Narrative Performed At EXAMINATION: [facility]: FALL COMPARISON:11/19/[address] TECHNIQUE: Noncontrast enhanced images of the brain were obtained from the skull base to the vertex. Both soft tissue and bone reconstruction algorithms were performed. CT scans are performed using radiation dose reduction techniques (iterative reconstruction and/or automated exposure control). Technical factors are evaluated and adjusted to ensure appropriate moderation of exposure. Automated dose management technology is applied to adjust radiation exposure while achieving a diagnostic quality image. FINDINGS: No acute intracranial abnormality. Specifically, no acute ischemia, intracranial hemorrhage, or mass occupying lesion. 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 No acute soft tissue hematoma or laceration. No skull fractures or aggressive bony lesions. Paranasal sinuses and mastoid air cells are clear. Orbits are normal. IMPRESSION: No acute intracranial abnormality identified. [facility]-[id number] Procedure Note Interface, Radiology Results Incoming - 01/16/2018 11:10 PM CDT EXAMINATION: CT HEAD WO CONTRAST CLINICAL HISTORY: FALL COMPARISON: 11/19/[address] TECHNIQUE: Noncontrast enhanced images of the brain were obtained from the skull base to the vertex. Both soft tissue and bone reconstruction algorithms were performed. CT scans are performed using radiation dose reduction techniques (iterative reconstruction and/or automated exposure control). Technical factors are evaluated and adjusted to ensure appropriate moderation of exposure. Automated dose management technology is applied to adjust radiation exposure while achieving a diagnostic quality image. FINDINGS: No acute intracranial abnormality. Specifically, no acute ischemia, intracranial hemorrhage, or mass occupying lesion. 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 No acute soft tissue hematoma or laceration. No skull fractures or aggressive bony lesions. Paranasal sinuses and mastoid air cells are clear. Orbits are normal. IMPRESSION: No acute intracranial abnormality identified. [facility]-[id number] Performing Organization Address [facility] Phone Number [facility] [address] [place] [address] * Partial thromboplastin time, activated (01/16/2018 10:45 PM CDT) Only the most recent of 3 results within the time period is included. PTT 27.1 23.0 - 36.0 sec [facility] DEPARTMENT OF Comment: PATHOLOGY AND PTT therapeutic range for [facility] MEDICINE unfractionated heparin is 61.0-112.0 seconds which corresponds to Anti-Xa 0.3-0.7 U/ml. Specimen Blood Performing Organization Address [facility] Phone Number [address] [place] [address] PATHOLOGY AND [facility] MEDIC[facility] * Prothrombin time with INR (01/16/2018 10:45 PM CDT) Only the most recent of 6 results within the time period is included. Prothrombin time 13.9 12.0 - 15.0 sec [facility] DEPARTMENT OF PATHOLOGY AND [facility] MEDIC[facility] INR 1.1 [facility] DEPARTMENT OF Comment: PATHOLOGY AND The International Normalized [facility] Ratio (INR) is a therapeutic monitoring tool for patients who are stable on oral anticoagulant therapy. An INR of 2.0-3.0 is suggested for deep vein thrombosis/pulmonary embolism. Specimen Blood Performing Organization Address [facility] Phone Number [address] [place] [address] PATHOLOGY AND [facility]IC[facility] * hCG qualitative, serum screen (01/16/2018 10:45 PM CDT) Only the most recent of 2 results within the time period is included. hCG qualitative, serum Negative [facility] DEPARTMENT OF PATHOLOGY AND [facility] MEDICINE Specimen Blood Performing Organization Address [facility] Phone Number [address] [place] [address] PATHOLOGY AND [facility]ICINE * Estimated GFR (12/08/2017 5:45 PM CDT) Only the most recent of 9 results within the time period is included. GFR Non Af Amer 77 mL/min/1.73 m2 [facility] DEPARTMENT OF PATHOLOGY AND GENOMIC MEDICINE GFR Af Amer >90 mL/min/1.73 m2 [facility] DEPARTMENT OF Comment: PATHOLOGY AND Chronic kidney disease: <60 GENOMIC MEDICINE mL/min/1.73m2 Kidney failure: <15 mL/min/1.73m2 The estimated GFR is calculated from the IDMS-traceable Modification of Diet in Renal Disease Equation. The accuracy of the calculation is poor when the creatinine is normal. Calculated values >90 mL/min/1.73m2 are not reported. This equation has not been validated in children (<18 years), women, the elderly (>70 years), or ethnic groups other than Caucasians and Americans. Specimen Plasma specimen Performing Organization Address [facility] Phone Number [address] [place] [address] PATHOLOGY [facility] * Lipase level (12/08/2017 5:45 PM CDT) Lipase 63 (H) 13 - 60 U/L [facility] PATHOLOGY [facility] Specimen Plasma specimen Performing Organization Address City[facility] Phone Number [address] [place] [address] PATHOLOGY [facility] * Hepatic function panel (12/08/2017 5:45 PM CDT) Albumin 4.3 3.5 - 5.0 g/dL [facility] DEPARTMENT OF PATHOLOGY AND GENOMIC MEDICINE Total bilirubin 0.2 0.0 - 1.2 mg/dL [facility] DEPARTMENT OF PATHOLOGY AND GENOMIC MEDICINE Bilirubin direct <0.1 0.0 - 0.3 mg/dL [facility] DEPARTMENT OF PATHOLOGY AND GENOMIC MEDICINE Alkaline phosphatase 115 (H) 35 - 104 U/L [facility] DEPARTMENT OF PATHOLOGY AND GENOMIC MEDICINE Protein 6.9 6.3 - 8.3 g/dL [facility] DEPARTMENT OF Comment: PATHOLOGY AND [place] GENOMIC MEDICINE 4.6-7.0 g/dL 1 week 4.4-7.6 g/dL 7 months-1year 5.1-7.3 g/dL 1-2 years5.6-7 .5 g/dL >3 years6.0-8 .0 g/dL 18-150 6.3-8.3 g/dL ALT 12 5 - 50 U/L [facility] DEPARTMENT OF PATHOLOGY AND GENOMIC MEDICINE AST 13 10 - 35 U/L [facility] DEPARTMENT OF PATHOLOGY AND GENOMIC MEDICINE Specimen Plasma specimen Performing Organization Address City/State/Zipcode Phone Number [facility] [place] [address] [place] [address] PATHOLOGY AND GENOMIC MEDICINE * CT Renal Stone Protocol (12/08/2017 5:31 PM CDT) Narrative Performed At EXAMINATION:CT RENAL STONE PROTOCOL [facility] CLINICAL HISTORY:flank pain TECHNIQUE:Multiple axial images of the abdomen and pelvis were obtained without intravenous administration of iodinated contrast. Sagittal and coronal computerized reformatted images were also obtained. The lack of intravenous contrast reduces the sensitivity of detecting solid organ disease. COMPARISON:CT abdomen and pelvis without contrast from 02/07/2014 FINDINGS: 1.Multiple phleboliths are seen within the pelvis which Limited evaluation of the distal ureters or the presence of nonobstructing calculi. 2.There is no evidence of left or right-sided hydronephrosis. Nonobstructing renal stones are seen within the inferior pole calyces of the left kidney measuring up to 0.3 cm in size. These are unchanged when compared to 01/2014. No calcifications are seen within the proximal or mid ureters. The bladder is distended. No bladder wall thickening. No calcifications are seen within the bladder. 3.Bibasilar atelectasis. The cardiac size is mildly enlarged. A trace pericardial effusion is seen. No hiatal hernia. 4.Noncontrast evaluation of the liver is unremarkable. No intrahepatic biliary duct dilatation. Surgical clips are seen within the gallbladder fossa consistent with prior cholecystectomy. 5.The pancreas, spleen, and adrenals are unremarkable. 6.A large amount of stool seen throughout the colon, correlate for underlying constipation. No dilated loops of large or small bowel. No intraperitoneal free air or free fluid. The appendix is normal. 7.The uterus is normal in morphology. The ovaries are grossly unremarkable. 8.The abdominal aorta is normal in caliber. 9.No abdominal or pelvic lymphadenopathy. 10.The bones are unremarkable. Old right-sided rib fractures. IMPRESSION: 1.Phleboliths within the pelvis Limited evaluation of the distal ureters for the presence of nonobstructing calculi. 2.There is no evidence of right or left-sided hydronephrosis/hydroureter or perinephric stranding to suggest secondary signs of obstruction. 3.Nonobstructing renal stones are again seen within the inferior pole of the left kidney measuring up to 0.2 cm. 4.A large amount of stool is seen throughout the colon, correlate for underlying constipation. [id number] Procedure Note Hm Interface, Radiology Results Incoming - 12/08/2017 5:44 PM CDT EXAMINATION: CT RENAL STONE PROTOCOL CLINICAL HISTORY: flank pain TECHNIQUE: Multiple axial images of the abdomen and pelvis were obtained without intravenous administration of iodinated contrast. Sagittal and coronal computerized reformatted images were also obtained. The lack of intravenous contrast reduces the sensitivity of detecting solid organ disease. COMPARISON: CT abdomen and pelvis without contrast from 02/07/2014 FINDINGS: 1. Multiple phleboliths are seen within the pelvis which Limited evaluation of the distal ureters or the presence of nonobstructing calculi. 2. There is no evidence of left or right-sided hydronephrosis. Nonobstructing renal stones are seen within the inferior pole calyces of the left kidney measuring up to 0.3 cm in size. These are unchanged when compared to 01/2014. No calcifications are seen within the proximal or mid ureters. The bladder is distended. No bladder wall thickening. No calcifications are seen within the bladder. 3. Bibasilar atelectasis. The cardiac size is mildly enlarged. A trace pericardial effusion is seen. No hiatal hernia. 4. Noncontrast evaluation of the liver is unremarkable. No intrahepatic biliary duct dilatation. Surgical clips are seen within the gallbladder fossa consistent with prior cholecystectomy. 5. The pancreas, spleen, and adrenals are unremarkable. 6. A large amount of stool seen throughout the colon, correlate for underlying constipation. No dilated loops of large or small bowel. No intraperitoneal free air or free fluid. The appendix is normal. 7. The uterus is normal in morphology. The ovaries are grossly unremarkable. 8. The abdominal aorta is normal in caliber. 9. No abdominal or pelvic lymphadenopathy. 10. The bones are unremarkable. Old right-sided rib fractures. IMPRESSION: 1. Phleboliths within the pelvis Limited evaluation of the distal ureters for the presence of nonobstructing calculi. 2. There is no evidence of right or left-sided hydronephrosis/hydroureter or perinephric stranding to suggest secondary signs of obstruction. 3. Nonobstructing renal stones are again seen within the inferior pole of the left kidney measuring up to 0.2 cm. 4. A large amount of stool is seen throughout the colon, correlate for underlying constipation. [id number] Performing Organization Address [facility]/Zipcode Phone Number [facility] [address] [place] [address] * XR Knee 4+ Vw Left (11/19/2017 6:15 PM CDT) Narrative Performed At EXAMINATION:XR KNEE 4VW LEFT [facility] CLINICAL HISTORY:Knee paininitial exam COMPARISON:None. IMPRESSION: There is no evidence of left knee fracture, dislocation, or joint effusion. Bone mineralization is normal. Minimal osteophytic change about the medial and lateral joint lines [id number] Procedure Note Hm Interface, Radiology Results Incoming - 11/19/2017 6:20 PM CDT EXAMINATION: XR KNEE 4 VW LEFT CLINICAL HISTORY: Knee pain initial exam COMPARISON: None. IMPRESSION: There is no evidence of left knee fracture, dislocation, or joint effusion. Bone mineralization is normal. Minimal osteophytic change about the medial and lateral joint lines [id number] Performing Organization Address [facility] Phone Number [facility] [address] [place] [address] * Group A strep, rapid antigen (07/05/2017 5:25 PM DERMATOLOGIST AND DERMATOPATHOLOGIST) Group A strep, rapid Negative for Group A [facility] DEPARTMENT OF antigen result Streptococcus antigen. PATHOLOGY AND Comment: GENOMIC MEDICINE Specimen Information Specimen Source: Throat Specimen Site: Not otherwise specified Specimen Throat - Not otherwise specified Performing Organization Address [facility] Phone Number [address] [place] [address] PATHOLOGY AND GENOMIC MEDICINE * Influenza antigen (07/05/2017 5:25 PM DERMATOLOGIST AND DERMATOPATHOLOGIST) Influenza antigen Negative for Influenza A/B [facility] DEPARTMENT OF antigen. PATHOLOGY AND Comment: GENOMIC MEDICINE Specimen Information Specimen Source: Nares Specimen Site: Other Specimen Nares - Other- Detailed Description Required Performing Organization Address [facility] Phone Number [facility] DEPARTMENT [address] [place] [phone] PATHOLOGY AND GENOMIC MEDICINE * XR Ribs 2 Vw Right (07/05/2017 5:03 PM DERMATOLOGIST AND DERMATOPATHOLOGIST) Narrative Performed At EXAMINATION: XR RIBS 2 VW RIGHT [facility] INDICATION: fall chest wall pain COMPARISON: 07/05/2017 IMPRESSION: Acute minimally displaced fracture of the right lateral 10th rib no other definite rib fracture is visualized. Nondisplaced fracture of the right lateral ninth rib. [facility]-[id number] Procedure Note Interface, Radiology Results Incoming - 07/05/2017 5:11 PM DERMATOLOGIST AND DERMATOPATHOLOGIST EXAMINATION: XR RIBS 2 VW RIGHT INDICATION: fall chest wall pain COMPARISON: 07/05/2017 IMPRESSION: Acute minimally displaced fracture of the right lateral 10th rib no other definite rib fracture is visualized. Nondisplaced fracture of the right lateral ninth rib. [facility]-[id number] Performing Organization Address [facility]/Zipcode Phone Number [facility] [address] [place] [address] * XR Chest 2 Vw (07/05/2017 5:03 PM DERMATOLOGIST AND DERMATOPATHOLOGIST) Narrative Performed At EXAMINATION: [facility] IND[facility]: cough COMPARISON: 02/07/2014 IMPRESSION: Hypoventilation of the lungs with crowding of the vascular markings. Vagal nerve stimulator overlying the left chest wall. Mild vascular congestion without focal infiltrate, effusion, or pneumothorax. Spondylosis thoracic spine. Upper quadrant surgical clips. [facility]-[id number] Procedure Note Interface, Radiology Results Incoming - 07/05/2017 5:09 PM DERMATOLOGIST AND DERMATOPATHOLOGIST EXAMINATION: XR CHEST 2 VW INDICATION: cough COMPARISON: 02/07/2014 IMPRESSION: Hypoventilation of the lungs with crowding of the vascular markings. Vagal nerve stimulator overlying the left chest wall. Mild vascular congestion without focal infiltrate, effusion, or pneumothorax. Spondylosis thoracic spine. Upper quadrant surgical clips. [facility]-[id number] Performing Organization Address [facility]ode Phone Number [facility] [address] [place] [address] * Strep screen culture (07/05/2017 4:25 PM DERMATOLOGIST AND DERMATOPATHOLOGIST) Strep screen culture No beta hemolytic Streptococci [facility] DEPARTMENT OF isolate isolated PATHOLOGY AND Comment: GENOMIC MEDICINE Specimen Information Specimen Source: Throat Specimen Site: Not otherwise specified Specimen Throat - Not otherwise specified Performing Organization Address [facility]/Zipcode Phone Number [facility] DEPARTMENT [address] [address] PATHOLOGY AND GENOMIC MEDICINE * Anti Xa, unfractionated (04/21/2017 6:05 AM DERMATOLOGIST AND DERMATOPATHOLOGIST) Only the most recent of 5 results within the time period is included. Anti Xa, unfractionated Comment: Therapeutic Range: 0.30 - 0.70 U/mL [facility] DEPARTMENT OF 0.30 - 0.70 U/mL PATHOLOGY AND GENOMIC MEDICINE Specimen Blood Performing Organization Address City/State/Zipcode Phone Number [facility] [place] [address] [address] [place] [address] PATHOLOGY AND GENOMIC MEDICINE * PV duplex venous lower extremity (04/18/2017 3:35 PM DERMATOLOGIST AND DERMATOPATHOLOGIST) Narrative Performed At [facility] The left lower extremity venous study is positive for DVT with a small amount of thrombus seen withimn a gastrocnemius vein. Performing Organization Address City/[facility]/Zipcode Phone Number [facility] [address] [place] [address] * US Renal (04/18/2017 1:38 PM DERMATOLOGIST AND DERMATOPATHOLOGIST) Narrative Performed At EXAMINATION:US RENAL RADIANT CLINICAL HISTORY:N39.0 Urinary tract infectionsite not specified, personal history uti COMPARISON:None. FINDINGS: The right kidney measures 11.37 m in length 4.9 cm AP dimension 6.4 cm in width. The cortical mantle thickness is 1.9 cm. No contour deforming mass or obstruction is noted. Cortical echogenicity is preserved. The left kidney measures 11.6 cm length 6.37 m in AP dimension 6.47 m in width with cortical mantle thickness of 2.3 cm. There is no contour deforming mass or obstruction identified. The bladder appears unremarkable. Ureteral jets are noted on both sides. IMPRESSION: No significant finding is identified. [id number] Procedure Note Interface, Radiology Results Incoming - 04/18/2017 3:47 PM DERMATOLOGIST AND DERMATOPATHOLOGIST EXAMINATION: US RENAL CLINICAL HISTORY: N39.0 Urinary tract infection site not specified, personal history uti COMPARISON: None. FINDINGS: The right kidney measures 11.37 m in length 4.9 cm AP dimension 6.4 cm in width. The cortical mantle thickness is 1.9 cm. No contour deforming mass or obstruction is noted. Cortical echogenicity is preserved. The left kidney measures 11.6 cm length 6.37 m in AP dimension 6.47 m in width with cortical mantle thickness of 2.3 cm. There is no contour deforming mass or obstruction identified. The bladder appears unremarkable. Ureteral jets are noted on both sides. IMPRESSION: No significant finding is identified. [id number] Performing Organization Address City/[facility]ode Phone Number [facility] [address] [place] [address] * Phosphorus level (03/27/2017 4:14 AM DERMATOLOGIST AND DERMATOPATHOLOGIST) Phosphorus (L) 2.4 - 4.5 mg/dL [facility] DEPARTMENT OF PATHOLOGY AND GENOMIC MEDICINE Specimen Plasma specimen Performing Organization Address [facility] Phone Number [address] [place] [address] PATHOLOGY AND GENOMIC MEDICINE * Magnesium level (03/27/2017 4:14 AM DERMATOLOGIST AND DERMATOPATHOLOGIST) Magnesium 1.6 - 2.6 mg/dL [facility] DEPARTMENT OF PATHOLOGY AND GENOMIC MEDICINE Specimen Plasma specimen Performing Organization Address [facility] Phone Number [address] [place] [address] PATHOLOGY [facility] MEDICINE * Ionized calcium (03/27/2017 4:14 AM DERMATOLOGIST AND DERMATOPATHOLOGIST) pH [facility] DEPARTMENT OF PATHOLOGY AND GENOMIC MEDICINE Ionized calcium 1.11 - 1.32 mmol/L [facility] DEPARTMENT OF PATHOLOGY AND GENOMIC MEDICINE Specimen Plasma specimen Performing Organization Address [facility] Phone Number [address] [place] [address] PATH[address]Y [address] [facility] MEDICINE * Arterial blood gas (03/26/2017 9:14 PM DERMATOLOGIST AND DERMATOPATHOLOGIST) pH, arterial 7.35 - 7.45 [facility] DEPARTMENT OF PATHOLOGY AND GENOMIC MEDICINE pCO2, arterial (L) 35 - 45 mmHg [facility] DEPARTMENT OF PATHOLOGY AND GENOMIC MEDICINE pO2, arterial (H) 80 - 90 mmHg [facility] DEPARTMENT OF PATHOLOGY AND GENOMIC MEDICINE Bicarbonate, arterial (L) 21.0 - 28.0 mmol/L [facility] DEPARTMENT OF PATHOLOGY AND GENOMIC MEDICINE Base excess, arterial (L) -2 - 2 mEq/L [facility] DEPARTMENT OF PATHOLOGY AND GENOMIC MEDICINE O2 saturation, arterial 95 - 100 % [facility] DEPARTMENT OF PATHOLOGY AND GENOMIC MEDICINE FiO2, inspired O2% % [facility] DEPARTMENT OF PATHOLOGY AND GENOMIC MEDICINE Specimen Blood Performing Organization Address [facility] Phone Number [address] [place] [address] PATHOLOGY AND GENOMIC MEDICINE after 03/11/2017 Insurance Payer Benefit Subscriber ID Type Phone Address Plan / Group MEDICARE MEDICARE xxxxxxxxxx Medicare [place], [place] B MEDICAID MEDICAID xxxxxxxxx Medicaid Advance Directives Patient has advance care planning documents, and code status on file. For more i nformation, please contact: Hari Moss [address] [place] [address] Date Inactivated Comments Code Status Date Activated 03/29/2017 4:04 PM Full Code 03/26/2017 10:10 PM Code Status decision reached by: Patient
[2018-03-12 12:28] VITALS: BP 111/74
--- NOTE | 2018-04-01 06:59 | Diagnostic Imaging Report ---
PROCEDURE:US GUIDANCE FOR VASCULAR ACCESS COMPARISON:None. INDICATIONS:Poor venous access FINDINGS:Ultrasound evaluation of potential access sites was performed. After successfully identifying a patent vessel, US guidance was used to puncture the vein. A permanent recording was created for the patient record. CONCLUSION:Successful IV access by ultrasound guidance. Gabriel Fernandez D.O. Dictated by: Gabriel Fernandez D.O. on 04/01/2018 at 7:08 Electronically approved by: Gabriel Fernandez D.O. on 04/01/2018 at 7:08
== END | disposition home or self-care (01) ==
LOC: OR 07:21
PROVIDERS: ATTEND Internal Medicine Gastroenterology
DX: K59.00 Constipation, unspecified (principal); K92.1 Melena; K64.8 Other hemorrhoids; Z71.3 Dietary counseling and surveillance; E66.9 Obesity, unspecified; G40.909 Epilepsy, unspecified, not intractable, without status epilepticus; E11.40 Type 2 diabetes mellitus with diabetic neuropathy, unspecified; I10 Essential (primary) hypertension; N39.0 Urinary tract infection, site not specified; G89.29 Other chronic pain; R53.1 Weakness; N20.0 Calculus of kidney; F32.9 Major depressive disorder, single episode, unspecified; F41.9 Anxiety disorder, unspecified; Z79.4 Long term (current) use of insulin; Z68.32 Body mass index [BMI] 32.0-32.9, adult; Z91.5 Personal history of self-harm; Z80.0 Family history of malignant neoplasm of digestive organs
CPT/HCPCS: 36415; 45378; 76937; 82948; 93005; J2250; J7070

== ENCOUNTER → 2018-04-09 | Day surgery (SDC) | payer MEDICARE ==
--- OUTSIDE RECORDS SUMMARY | 2018-04-09 06:08 | XMS REPORT | Clinical Summary ---
Author Author [facility] Address Unknown Phone Unavailable Care Team Providers Care Loom Operator Name Role Phone Gerber Burch MD PCP [...] 3 (three times a week at 2100. 03/01/2018 Discontinued VIMPAT 200 mg tablet Take [...] times a day as needed for dizziness. 01/17/2018 Discontinued acetaminophen-codeine Take 0.5-1 0 (TYLENOL [...] a day with meals for 30 days. 01/17/2018 Discontinued JANUVIA 100 mg tablet TK [...] (two) times a day for 7 days. 03/10/2018 Discontinued doxycycline (VIBRA-TABS) Take 1 tablet 14 tablet 0 100 MG tablet (100 mg 8 total) by mouth 2 (two) times a day for 7 days. 04/04/2018 levothyroxine (SYNTHROID, Take 1 tablet 30 tablet 0 LEVOXYL) 25 mcg tablet (25 mcg 8 total) by mouth daily for 30 days. 03/20/2018 doxycycline (VIBRA-TABS) TAKE 1 14 tablet 0 100 MG tablet TABLET(100 8 MG) BY MOUTH TWICE DAILY FOR 7 DAYS Active Problems Problem Noted Date Unsteady gait [...] Description Date Type Specialty Emmanuel Garber MD 04/07/2018 Telephone UrologEmmanuel Dominguez MD 04/06/2018 Refill Urology Emmanuel Garber MD 04/02/2018 Telephone Urology Emmanuel Garber MD Urinary tract infection without hematuria, site unspecified (Primary Dx) 03/13/2018 Clinical Urology Support Emmanuel Garber MD 03/12/2018 Telephone Urology Emmanuel Garber MD 03/10/2018 Refill Urology Milvia Cazares RN 03/04/2018 Documentation Obstetrics and Gynecology Sandra Shah MA 03/03/2018 Telephone UrologEmmanuel Dominguez MD 03/03/2018 Telephone Urology Atul Rivera MD Al-Lahiq, Maha, MD Unsteady gait (Primary Dx); Suicide attempt (HCC); Generalized weakness 03/01/2018 [facility] General Internal Medicine - Encounter 03/04/2018 N/A 03/01/2018 Intake Access Emmanuel Garber MD Overactive bladder (Primary Dx); Postmenopausal atrophic vaginitis; Urinary tract infection without hematuria, site unspecified; Personal history of urethral stricture 02/24/2018 Office Visit Urology Emmanuel Garber MD 02/24/2018 Telephone Urology Emmanuel Garber MD 02/17/2018 Telephone Urology Emmanuel Garber MD 02/06/2018 Telephone Urology Sandra Shah MA 02/06/2018 Orders Only Urology Emmanuel Garber MD Urinary tract infection without hematuria, site unspecified (Primary Dx); Postmenopausal atrophic vaginitis; Overactive bladder 01/28/2018 Office Visit UrologEmmanuel Dominguez MD 01/20/2018 Telephone Urology Chacha Malone MD Mayen Nunez, Jose Isaias, MD Al-Lahiq, Maha, MD Fall, initial encounter (Primary Dx); Syncope and collapse; Confusion and disorientation; Closed avulsion fracture of lateral malleolus of left fibula, initial encounter; Abrasion; Seizures; Acute cystitis without hematuria 01/16/2018 Emergency General Internal Medicine - 01/18/2018 Emmanuel Garber MD 01/07/2018 Telephone Urology Emmanuel Garber MD 01/07/2018 Telephone UrologEmmanuel Dominguez MD 12/22/2017 Refill Urology Emmanuel Garber MD 12/11/2017 Telephone Urology Atul Rivera MD Pyelonephritis (Primary Dx) 12/08/2017 Emergency Emergency Medicine Emmaunel Garber MD 12/08/2017 Telephone Urology Kyle Silva [...] Emergency Emergency Medicine Nitin Martinez PA-C Syed, DO Duc Zhang Matthew, MD Lower leg DVT (deep venous thromboembolism), acute, left (Primary Dx) 04/18/2017 [facility] General Internal Medicine - Encounter 04/21/2017 Emmanuel Garber MD Recurrent UTI 04/18/2017 Hospital Radiology Encounter Emmanuel Garber MD 04/11/2017 Telephone Urology Flavia Gant MA 04/11/2017 Telephone Urology Emmanuel Garber MD Recurrent UTI (Primary Dx); Constipation, unspecified constipation type; Postmenopausal atrophic vaginitis 04/08/2017 Office Visit Urology after 04/08/2017 Immunizations Name Dates Previously Given Next Due [...] Taken Vital Sign Reading 03/04/2018 4:11 AM REHAB SERVICES AIDE Blood Pressure 112/62 03/04/2018 4:11 AM REHAB SERVICES AIDE Pulse 89 03/04/2018 4:11 AM REHAB SERVICES AIDE Temperature 36.4 C (97.6 F) 03/04/2018 4:11 AM REHAB SERVICES AIDE Respiratory Rate 16 03/04/2018 4:11 AM REHAB SERVICES AIDE Oxygen Saturation 96% - Inhaled Oxygen - Concentration 03/01/2018 1:55 AM CDT Weight 81.6 kg (180 lb) 03/01/2018 1:55 AM CDT Height 167.6 cm (5' 6") 03/01/2018 1:55 AM CDT Body Mass Index 29.05 Plan of Treatment Care Team Description Date Type Specialty Emmanuel Garber MD [address] [place] [id number] [phone] 08/25/2018 Office Visit Urology Health Maintenance Due Date Last Done Comments DIABETIC RETINAL EYE EXAM 1970 DIABETIC FOOT EXAM 1980 URINE MICROALBUMIN 1980 HEPATITIS B VACCINES (1 1989 of 3 [...] Comments Procedure Name Priority Date/Time Associated Diagnosis MICROSCOPIC EXAMINATION Routine 03/13/2018 1:13 PM REHAB SERVICES AIDE URINALYSIS, COMPLETE, Routine 03/13/2018 Urinary tract infection WITH REFLEX TO CULTURE 1:13 PM REHAB SERVICES AIDE without hematuria, site unspecified URINE CULTURE, Routine 03/13/2018 COMPREHENSIVE (YOJANA 1:13 PM REHAB SERVICES AIDE HIST) POC GLUCOSE Routine 03/04/2018 10:49 AM REHAB SERVICES AIDE POC GLUCOSE Routine 03/04/2018 5:39 AM REHAB SERVICES AIDE POC GLUCOSE Routine 03/03/2018 6:52 PM REHAB SERVICES AIDE POC GLUCOSE Routine 03/03/2018 11:38 AM REHAB SERVICES AIDE POC GLUCOSE Routine 03/03/2018 7:30 AM REHAB SERVICES AIDE ESTIMATED GFR Routine 03/03/2018 5:41 AM REHAB SERVICES AIDE BASIC METABOLIC PANEL Routine 03/03/2018 5:41 AM REHAB SERVICES AIDE POC GLUCOSE Routine 03/03/2018 5:40 AM REHAB SERVICES AIDE POC GLUCOSE Routine 03/02/2018 8:23 PM REHAB SERVICES AIDE POC GLUCOSE Routine 03/02/2018 4:46 PM REHAB SERVICES AIDE POC GLUCOSE Routine 03/02/2018 12:15 PM REHAB SERVICES AIDE POC GLUCOSE Routine 03/02/2018 10:21 AM REHAB SERVICES AIDE POC GLUCOSE Routine 03/02/2018 9:50 AM REHAB SERVICES AIDE POC GLUCOSE Routine 03/02/2018 6:07 AM REHAB SERVICES AIDE POC GLUCOSE Routine 03/01/2018 8:32 PM REHAB SERVICES AIDE POC GLUCOSE Routine 03/01/2018 4:30 PM REHAB SERVICES AIDE POC GLUCOSE Routine 03/01/2018 7:42 AM REHAB SERVICES AIDE URINE DRUGS OF ABUSE STAT 03/01/2018 SCREEN 6:00 AM REHAB SERVICES AIDE URINALYSIS SCREEN AND STAT 03/01/2018 MICROSCOPY, WITH REFLEX 6:00 AM REHAB SERVICES AIDE TO CULTURE GRAM STAIN STAT 03/01/2018 6:00 AM REHAB SERVICES AIDE URINE CULTURE STAT 03/01/2018 6:00 AM REHAB SERVICES AIDE HEMOGLOBIN A1C Routine 03/01/2018 1:33 AM CDT [...] PRELIMINARY Routine 01/16/2018 INTERPRETATION 11:14 PM CDT IN APPLY LOWER LEG SPLINT Routine 01/16/2018 11:14 [...] STREP, RAPID Routine 07/05/2017 ANTIGEN 5:25 PM REHAB SERVICES AIDE INFLUENZA ANTIGEN Routine 07/05/2017 5:25 PM REHAB SERVICES AIDE XR RIBS 2 VW RIGHT STAT 07/05/2017 5:03 PM REHAB SERVICES AIDE XR CHEST 2 VW STAT 07/05/2017 5:03 PM REHAB SERVICES AIDE STREP SCREEN CULTURE Routine 07/05/2017 4:25 PM REHAB SERVICES AIDE POC GLUCOSE Routine 04/21/2017 8:59 AM REHAB SERVICES AIDE POC GLUCOSE Routine 04/21/2017 6:44 AM REHAB SERVICES AIDE ANTI XA, UNFRACTIONATED Routine 04/21/2017 6:05 AM REHAB SERVICES AIDE PROTHROMBIN TIME WITH INR Routine 04/21/2017 6:05 AM REHAB SERVICES AIDE POC GLUCOSE Routine 04/20/2017 9:32 PM REHAB SERVICES AIDE PROTHROMBIN TIME WITH INR Routine 04/20/2017 11:23 AM REHAB SERVICES AIDE ANTI XA, UNFRACTIONATED Routine 04/20/2017 11:23 AM REHAB SERVICES AIDE POC GLUCOSE Routine 04/20/2017 5:36 AM REHAB SERVICES AIDE ANTI XA, UNFRACTIONATED Routine 04/20/2017 4:50 AM REHAB SERVICES AIDE PROTHROMBIN TIME WITH INR Routine 04/19/2017 10:00 PM REHAB SERVICES AIDE ANTI XA, UNFRACTIONATED Routine 04/19/2017 10:00 PM REHAB SERVICES AIDE POC GLUCOSE Routine 04/19/2017 9:51 PM REHAB SERVICES AIDE ANTI XA, UNFRACTIONATED Routine 04/19/2017 1:50 PM REHAB SERVICES AIDE POC GLUCOSE Routine 04/19/2017 5:52 AM REHAB SERVICES AIDE ZZESTIMATED GFR Routine 04/19/2017 4:55 AM REHAB SERVICES AIDE COMPREHENSIVE METABOLIC Routine 04/19/2017 PANEL 4:55 AM REHAB SERVICES AIDE HC COMPLETE BLD COUNT Routine 04/19/2017 W/AUTO DIFF 4:55 AM REHAB SERVICES AIDE POC GLUCOSE Routine 04/18/2017 8:11 PM REHAB SERVICES AIDE ZZESTIMATED GFR STAT 04/18/2017 4:35 PM REHAB SERVICES AIDE HCG QUALITATIVE, SERUM STAT 04/18/2017 SCREEN 4:35 PM REHAB SERVICES AIDE PARTIAL THROMBOPLASTIN STAT 04/18/2017 TIME (PTT) 4:35 PM REHAB SERVICES AIDE PROTHROMBIN TIME WITH INR STAT 04/18/2017 4:35 PM REHAB SERVICES AIDE COMPREHENSIVE METABOLIC STAT 04/18/2017 PANEL 4:35 PM REHAB SERVICES AIDE HC COMPLETE BLD COUNT STAT 04/18/2017 W/AUTO DIFF 4:35 PM REHAB SERVICES AIDE US DUPLEX VENOUS LOWER STAT 04/18/2017 EXTREMITY LEFT 3:35 PM REHAB SERVICES AIDE US RENAL Routine 04/18/2017 Recurrent UTI 1:38 PM REHAB SERVICES AIDE MICROSCOPIC EXAMINATION Routine 04/08/2017 2:03 PM REHAB SERVICES AIDE URINALYSIS, COMPLETE, Routine 04/08/2017 Recurrent UTI WITH REFLEX TO CULTURE 2:03 PM REHAB SERVICES AIDE URINE CULTURE, Routine 04/08/2017 COMPREHENSIVE (YOJANA 2:03 PM REHAB SERVICES AIDE HIST) after 04/08/2017 Results * Urine Culture, Comprehensive (03/13/2018 1:13 PM REHAB SERVICES AIDE) Only the most recent of 4 results within the time period is included. Urine culture Viridans streptococcus group [facility] Greater than 100,000 colony forming units per mL Comment: Susceptibility not normally performed on this organism. Narrative Performed At Performed at:[facility] [address] [place], [place] [id number] Reversing Mill Roller: Jose Acevedo MD, Phone:[phone] Performing Organization Address City/State/[facility] Phone Number [facility] * URINALYSIS, COMPLETE, WITH REFLEX TO CULTURE (03/13/2018 1:13 PM REHAB SERVICES AIDE) Only the most recent of 4 results within the time period is included. Specific gravity, urine 1.022 1.005 - 1.030 [facility] pH, urine 6.5 5.0 - 7.5 [facility] Color, UA Yellow Yellow [facility] Appearance Cloudy (A) Clear [facility] WBC esterase, urine 3+ (A) Negative [facility] Protein, UA Negative Negative/Trace [facility] Glucose, urine 3+ (A) Negative [facility] Ketones, UA Negative Negative [facility] Occult blood, urine Trace (A) Negative [facility] Bilirubin, UA Negative Negative [facility] Urobilinogen, UA 0.2 0.2 - 1.0 mg/dL [facility] Nitrite, UA Negative Negative [facility] Microscopic examination See below:Comment: Microscopic [facility] was indicated and was performed. Urinalysis reflex CommentComment: This specimen [facility] has reflexed to a Urine Culture. Narrative Performed At Performed at: - [facility] [address] [place], [id number] Reversing Mill Roller: Jose Acevedo MD, Phone:[phone] Performing Organization Address [facility] Phone Number [facility] * Microscopic Examination (03/13/2018 1:13 PM REHAB SERVICES AIDE) Only the most recent of 4 results within the time period is included. WBC, UA >30 (A) 0 - 5 /hpf [facility] RBC, UA 3-10 (A) 0 - 2 /hpf [facility] Epithelial cells (non 0-10 0 - 10 /hpf [facility] renal) Mucus, UA Present Not Estab. [facility] Bacteria, UA Moderate (A) None seen/Few [facility] Narrative Performed At Performed at: - [facility] [address] [place], [id number] Reversing Mill Roller: Jose Acevedo MD, Phone:[phone] Performing Organization Address [facility] Phone Number [facility] * POC glucose (03/04/2018 10:49 AM REHAB SERVICES AIDE) Only the most recent of 29 results within the time period is included. POC glucose 251 (H) 65 - 99 mg/dL [facility] DEPARTMENT OF Comment: PATHOLOGY AND Meter ID: [id number] GENOMIC MEDICINE Load Dispatcher Local: Debora Steel Performing Organization Address [facility] Phone Number [facility] DEPARTMENT [address] [place] [address] PATHOLOGY AND GENOMIC MEDICINE * Estimated GFR (03/03/2018 5:41 AM REHAB SERVICES AIDE) Only the most recent of 4 results within the time period is included. Estimated GFR >=90 mL/min/1.[address] [facility] DEPARTMENT OF Comment: PATHOLOGY AND CatergoryUnitsInte GENOMIC MEDICINE rpretation G1 >=90 Normal or high G2 60-89Mildly decreased [id number] Mildly to moderately decreased [id number] Moderately to severely decreased G4 15-29Severely decreased G5 <15Kidney failure The eGFR was calculated using the Chronic Kidney Disease Epidemiology Collaboration (CKD-EPI) equation. Interpretation is based on recommendations of the National Kidney Foundation-Kidney Disease Outcomes Quality Initiative (NKF-KDOQI) published in 2014. Specimen Plasma specimen Performing Organization Address [facility] Phone Number [address] [place] [address] PATHOLOGY AND [facility] * Basic metabolic panel (03/03/2018 5:41 AM REHAB SERVICES AIDE) Only the most recent of 3 results within the time period is included. Sodium 139 135 - 148 mEq/L [facility] DEPARTMENT OF PATHOLOGY AND GENOMIC MEDICINE Potassium 4.1 3.5 - 5.0 mEq/L [facility] DEPARTMENT OF PATHOLOGY AND GENOMIC MEDICINE Chloride 101 98 - 112 mEq/L [facility] DEPARTMENT OF PATHOLOGY AND GENOMIC MEDICINE CO2 27 24 - 31 mEq/L [facility] OF PATHOLOGY AND GENOMIC MEDICINE Anion gap 11@ANIO 7 - 15 mEq/L [facility] DEPARTMENT OF PATHOLOGY AND GENOMIC MEDICINE BUN 13 6 - 20 mg/dL [facility] DEPARTMENT OF PATHOLOGY AND GENOMIC MEDICINE Creatinine 0.70 0.50 - 0.90 mg/dL [facility] DEPARTMENT OF PATHOLOGY AND GENOMIC MEDICINE Glucose 142 (H) 65 - 99 mg/dL [facility] DEPARTMENT OF PATHOLOGY AND GENOMIC MEDICINE Calcium 9.7 8.3 - 10.2 mg/dL [facility] DEPARTMENT OF PATHOLOGY AND GENOMIC MEDICINE Specimen Plasma specimen Performing Organization Address [facility] Phone Number [address] [place] [phone] PATHOLOGY [facility] * Urinalysis screen and microscopy, with reflex to culture (03/01/2018 6:00 AM REHAB SERVICES AIDE) Only the most recent of 3 results within the time period is included. Specimen site Clean catch [facility] DEPARTMENT OF PATHOLOGY AND GENOMIC MEDICINE Color, UA Yellow [facility] DEPARTMENT OF PATHOLOGY AND GENOMIC MEDICINE Appearance, UA Slightly-Cloudy [facility] DEPARTMENT OF PATHOLOGY AND GENOMIC MEDICINE Specific gravity, UA 1.012 1.001 - 1.[address] [facility] DEPARTMENT OF PATHOLOGY AND GENOMIC MEDICINE pH, UA 5.0 5.0 - 8.[address] [facility] DEPARTMENT OF PATHOLOGY AND GENOMIC MEDICINE Protein, UA Negative Negative [facility] DEPARTMENT OF PATHOLOGY AND GENOMIC MEDICINE Glucose, UA 3+ (A) Negative [facility] DEPARTMENT OF PATHOLOGY AND GENOMIC MEDICINE Ketones, UA Negative Negative [facility] DEPARTMENT OF PATHOLOGY AND GENOMIC MEDICINE Bilirubin, UA Negative Negative [facility] DEPARTMENT OF PATHOLOGY AND GENOMIC MEDICINE Blood, UA Negative Negative [facility] DEPARTMENT OF PATHOLOGY AND GENOMIC MEDICINE Nitrite, UA Negative Negative [facility] DEPARTMENT OF PATHOLOGY AND GENOMIC MEDICINE Urobilinogen, UA Negative <2.[address] [facility] DEPARTMENT OF PATHOLOGY AND GENOMIC MEDICINE Leukocyte esterase, UA Small (A) Negative [facility] DEPARTMENT OF PATHOLOGY AND GENOMIC MEDICINE Round epithelial cells, Few 0 - 1 /HPF [facility] DEPARTMENT OF UA PATHOLOGY AND GENOMIC MEDICINE WBC, UA 11-20 (H) 0 - 4 /HPF [facility] DEPARTMENT OF PATHOLOGY AND GENOMIC MEDICINE RBC, UA 0-5 0 - 5 /HPF [facility] DEPARTMENT OF PATHOLOGY AND GENOMIC MEDICINE Bacteria, UA Trace None seen [facility] DEPARTMENT OF PATHOLOGY AND GENOMIC MEDICINE Yeast, UA None seen [facility] DEPARTMENT OF PATHOLOGY AND GENOMIC MEDICINE Yeast with pseudohyphae, None seen [facility] DEPARTMENT [facility] PATHOLOGY AND GENOMIC MEDICINE Specimen Urine Performing Organization Address City/[facility] Phone Number [facility] [address] [place] [address] PATHOLOGY AND GENOMIC MEDICINE * Urine drugs of abuse screen (03/01/2018 6:00 AM REHAB SERVICES AIDE) Amphetamine screen, urine Negative [facility] DEPARTMENT OF PATHOLOGY AND GENOMIC MEDICINE Methamphetamine screen, Negative [facility] DEPARTMENT OF urine PATHOLOGY AND GENOMIC MEDICINE Barbiturate screen, urine Negative [facility] DEPARTMENT OF PATHOLOGY AND GENOMIC MEDICINE Benzodiazepine screen, Positive (A) [facility] DEPARTMENT OF urine PATHOLOGY AND GENOMIC MEDICINE Cocaine screen, urine Negative [facility] DEPARTMENT OF PATHOLOGY AND GENOMIC MEDICINE Methadone screen, urine Negative [facility] DEPARTMENT OF PATHOLOGY AND GENOMIC MEDICINE Opiates screen, urine Negative [facility] DEPARTMENT OF PATHOLOGY AND GENOMIC MEDICINE Phencyclidine screen, Negative [facility] DEPARTMENT OF urine PATHOLOGY AND GENOMIC MEDICINE Cannabinoid screen, urine Negative [facility] DEPARTMENT OF PATHOLOGY AND GENOMIC MEDICINE Tricyclic screen, urine Negative [facility] DEPARTMENT OF Comment: PATHOLOGY AND Drug screen [...] Urine Performing Organization Address City/State/Zipcode [place] Number [facility] [address] [place] [address] PATHOLOGY AND GENOMIC MEDICINE * Gram stain (03/01/2018 6:00 AM REHAB SERVICES AIDE) Only the most recent of 3 results within the time period is included. Gram stain result Occasional Gram negative rods [facility] DEPARTMENT OF Rare WBC's PATHOLOGY AND Comment: GENOMIC MEDICINE Specimen Information Specimen Source: Urine Specimen Site: Clean catch Specimen Urine Performing Organization Address City/State/Zipcode Phone Number [facility] DEPARTMENT OF [address] [place] [address] PATHOLOGY AND GENOMIC MEDICINE * Urine culture (03/01/2018 6:00 AM REHAB SERVICES AIDE) Only the most recent of 3 results within the time period is included. Urine culture isolate Escherichia coli [facility] DEPARTMENT OF >10-5 cfu/ml PATHOLOGY AND The performance GENOMIC MEDICINE characteristics of this assay on this isolate were validated by the Microbiology Laboratory at [facility].This source has not been approved by the U.S. Food and Drug Administration.The results are not intended to be used as the sole means for clinical diagnosis or patient management.The Microbiology Laboratory is authorized under the clinical Laboratory Improvement Amendments of 1988 (CLIA-88) to perform high complexity testing. This isolate is a toddler teacher of ESBL (extended spectrum beta lactamase).This organism [...] BREONNA >16 mcg/mL: Resistant Escherichia coli Ceftazidime BREONNA 16 mcg/mL: Resistant Escherichia coli Ciprofloxacin BREONNA [...] coli Performing Organization Address City/State/Zipcode Phone Number [facility] DEPARTMENT OF [address] [place] [address] PATHOLOGY AND GENOMIC MEDICINE * CBC with platelet and differential (03/01/2018 1:33 AM CDT) Only the most recent of 7 results within the time period is included. WBC 5.91 4.50 - 11.00 k/uL [facility] DEPARTMENT OF PATHOLOGY AND GENOMIC MEDICINE RBC 5.11 4.20 - 5.50 m/uL [facility] DEPARTMENT OF PATHOLOGY AND GENOMIC MEDICINE HGB 14.6 12.0 - 16.0 g/dL [facility] DEPARTMENT OF PATHOLOGY AND GENOMIC MEDICINE HCT 43.6 37.0 - 47.0 % [facility] DEPARTMENT OF PATHOLOGY AND GENOMIC MEDICINE MCV 85.3 82.0 - 100.[address] [facility] DEPARTMENT OF PATHOLOGY AND GENOMIC MEDICINE MCH 28.6 27.0 - 34.[address] [facility] DEPARTMENT OF PATHOLOGY AND GENOMIC MEDICINE MCHC 33.5 31.0 - 37.0 g/dL [facility] DEPARTMENT OF PATHOLOGY AND GENOMIC MEDICINE RDW - SD 38.5 37.0 - 55.[address] [facility] DEPARTMENT OF PATHOLOGY AND GENOMIC MEDICINE MPV 10.8 8.8 - 13.[address] [facility] DEPARTMENT OF PATHOLOGY AND GENOMIC MEDICINE Platelet count 162 150 - 400 k/uL [facility] DEPARTMENT OF PATHOLOGY AND GENOMIC MEDICINE Nucleated RBC 0.00 /[address] [facility] DEPARTMENT OF PATHOLOGY AND GENOMIC MEDICINE Neutrophils 72.1 (H) 39.0 - 69.0 % [facility] DEPARTMENT OF PATHOLOGY AND GENOMIC MEDICINE Lymphocytes 20.0 (L) 25.0 - 45.0 % [facility] DEPARTMENT OF PATHOLOGY AND GENOMIC MEDICINE Monocytes 7.1 0.0 - 10.0 % [facility] DEPARTMENT OF PATHOLOGY AND GENOMIC MEDICINE Eosinophils 0.0 0.0 - 5.0 % [facility] DEPARTMENT OF PATHOLOGY AND GENOMIC MEDICINE Basophils 0.5 0.0 - 1.0 % [facility] DEPARTMENT OF PATHOLOGY AND GENOMIC MEDICINE Specimen Blood Performing Organization Address [facility] Phone Number [address] [place] [address] PATHOLOGY AND GENOMIC MEDICINE * Thyroid stimulating hormone (03/01/2018 1:33 AM CDT) TSH 4.26 (H) 0.27 - 4.20 uIU/mL [facility] DEPARTMENT OF PATHOLOGY AND GENOMIC MEDICINE Specimen Plasma specimen Performing Organization Address [facility] Phone Number [address] [place] [address] PATHOLOGY AND [facility] MEDICINE * Hemoglobin A1c (03/01/2018 1:33 AM CDT) Hemoglobin A1C 8.9 (H) 4.0 - 6.0 % [facility] DEPARTMENT OF Comment: PATHOLOGY AND GENOMIC MEDICINE Less than 6% - Goal of therapy for Type II Diabetes Less than 7%-Goal of therapy for Type I Diabetes Less than 8%-Accepta ble control for Type I or Type II Diabetes Greater than 8%-Unacceptabl e control; action indicated. ([id number]) Specimen Blood Performing Organization Address [facility] Phone Number [address] [place] [address] PATHOLOGY AND GENOMIC MEDICINE * Alcohol level, blood (03/01/2018 1:33 AM CDT) Alcohol None Detected mg/dL [facility] DEPARTMENT OF Comment: PATHOLOGY AND Normal GENOMIC MEDICINE None Detected Legal Intoxication in [place]80 mg/dL (0.08%) - Whole Blood Toxic Concentration 200 mg/dL (0.2%) Potentially Fatal3 50 - 500 mg/dL (0.35 - 0.5%) Alcohol percent None Detected % [facility] DEPARTMENT OF PATHOLOGY AND GENOMIC MEDICINE Specimen Plasma specimen Performing Organization Address [facility] [facility] Phone Number [facility] DEPARTMENT [address] [place] [address] PATHOLOGY AND GENOMIC MEDICINE * Acetaminophen level (03/01/2018 1:33 AM CDT) Acetaminophen level <15.0 10.0 - 30.0 ug/mL [facility] DEPARTMENT OF Comment: PATHOLOGY AND Therapeutic GENOMIC MEDICINE 10-30 ug/mL Possible Toxicity 150-200 ug/mL Probable Toxicity >200 ug/mL Specimen Plasma specimen Performing Organization Address [facility] Phone Number [facility] DEPARTMENT [place] [address] [place] [address] PATHOLOGY AND GENOMIC MEDICINE * Salicylate level (03/01/2018 1:33 AM CDT) Salicylate <0.3 (L) 3.0 - 30.0 mg/dL [facility] DEPARTMENT PATHOLOGY AND GENOMIC MEDICINE Specimen Plasma specimen Performing Organization Address [facility] Phone Number [address] [place] [address] PATHOLOGY AND GENOMIC MEDICINE * ECG ED [...] ED Physician in the absence of a cap and stud machine operator: yes Interpretation: Interpretation: abnormal Rate: ECG rate:101 ECG rate assessment: tachycardic Rhythm: Rhythm: sinus tachycardia Ectopy: Ectopy: none QRS: QRS axis:Normal Conduction: Conduction: normal ST segments: ST segments:Normal T waves: T waves: normal * ECG 12 lead (03/01/2018 1:15 AM CDT) Only the most recent of 4 results within the time period is included. Ventricular rate 101 [facility] Atrial rate 101 [facility] IN interval 198 [facility] QRSD interval 98 [facility] QT interval 368 [facility] QTC interval 477 [facility] P axis 1 63 [facility] QRS axis 1 52 [facility] T wave axis 62 [facility] EKG impression Sinus tachycardia-Possible [facility] Left atrial enlargement-Borderline ECG-In automated comparison with ECG of 17-JAN-2018 04:22,-No significant change was found- Performing Organization Address City/State/Zipcode Phone Number [facility] [address] [place] [address] * T4, free (03/01/2018 1:00 AM CDT) T4, free 0.78 (L) 0.90 - 1.70 ng/dL [facility] DEPARTMENT OF PATHOLOGY AND GENOMIC MEDICINE Specimen Plasma specimen Performing Organization Address [facility] Phone Number [address] [place] [address] PATHOLOGY AND GENOMIC MEDICINE * Troponin (01/17/2018 12:05 PM CDT) Only the most recent of 4 results within the time period is included. Troponin <0.300 0.000 - 0.300 ng/mL [facility] DEPARTMENT OF Comment: PATHOLOGY AND 0.30 - 1.49 GENOMIC MEDICINE ng/mlMay indicate increased risk of acute coronary syndrome. >=1.5 ng/ml Consistent with acute myocardial infarction. The diagnostic value of a single normal or non-diagnostic result is questionable.Serial samples at 2-6 hour intervals are required to rule out acute myocardial injury. Specimen Plasma specimen Performing Organization Address [facility] Phone Number [facility] DEPARTMENT OF [address] [place] [address] [place] [address] PATHOLOGY AND GENOMIC MEDICINE * Comprehensive metabolic panel (01/17/2018 4:10 AM CDT) Only the most recent of 5 results within the time period is included. Sodium 140 135 - 148 mEq/L [facility] DEPARTMENT OF PATHOLOGY AND GENOMIC MEDICINE Potassium 3.7 3.5 - 5.0 mEq/L [facility] DEPARTMENT OF PATHOLOGY AND GENOMIC MEDICINE Chloride 100 98 - 112 mEq/L [facility] DEPARTMENT OF PATHOLOGY AND GENOMIC MEDICINE CO2 31 24 - 31 mEq/L [facility] DEPARTMENT OF PATHOLOGY AND GENOMIC MEDICINE Anion gap 9@ANIO 7 - 15 mEq/L [facility] DEPARTMENT OF PATHOLOGY AND GENOMIC MEDICINE BUN 18 6 - 20 mg/dL [facility] DEPARTMENT OF PATHOLOGY AND GENOMIC MEDICINE Creatinine 0.80 0.50 - 0.90 mg/dL [facility] DEPARTMENT OF PATHOLOGY AND GENOMIC MEDICINE Glucose 228 (H) 65 - 99 mg/dL [facility] DEPARTMENT OF PATHOLOGY AND GENOMIC MEDICINE Calcium 9.4 8.3 - 10.2 mg/dL [facility] DEPARTMENT OF PATHOLOGY AND GENOMIC MEDICINE Protein 6.1 (L) 6.3 - 8.3 g/dL [facility] DEPARTMENT OF Comment: PATHOLOGY AND [place] GENOMIC MEDICINE 4.6-7.0 g/dL 1 week 4.4-7.6 g/dL 7 months-1year 5.1-7.3 g/dL 1-2 years5.6-7 .5 g/dL >3 years6.0-8 .0 g/dL 18-150 6.3-8.3 g/dL Albumin 3.9 3.5 - 5.0 g/dL [facility] DEPARTMENT OF PATHOLOGY AND GENOMIC MEDICINE A/G ratio 1.8 0.7 - 3.[address] [facility] DEPARTMENT OF PATHOLOGY AND GENOMIC MEDICINE Alkaline phosphatase 158 (H) 35 - 104 U/L [facility] DEPARTMENT OF PATHOLOGY AND GENOMIC MEDICINE AST 36 (H) 10 - 35 U/L [facility] DEPARTMENT OF PATHOLOGY AND GENOMIC MEDICINE ALT 35 5 - 50 U/L [facility] DEPARTMENT OF PATHOLOGY AND GENOMIC MEDICINE Total bilirubin 0.2 0.0 - 1.2 mg/dL [facility] DEPARTMENT OF PATHOLOGY AND GENOMIC MEDICINE Specimen Plasma specimen Performing Organization Address City/[facility]/Zipcode Phone Number [facility] [place] [address] [place] [address] PATHOLOGY AND GENOMIC MEDICINE * Prolactin level (01/17/2018 1:50 AM CDT) Prolactin 18 5 - 23 ng/mL [facility] DEPARTMENT OF PATHOLOGY AND GENOMIC MEDICINE Specimen Plasma specimen Performing Organization Address City/[facility]/Zipcode Phone Number [facility] DEPARTMENT OF [address] [place] [address] PATHOLOGY AND GENOMIC MEDICINE * XR Chest 1 Vw Portable (01/17/2018 12:31 AM CDT) Narrative Performed At EXAMINATION: XR CHEST 1 VW PORTABLE [facility] CLINICAL HISTORY: fall COMPARISON:07/05/2017 chest x-ray. IMPRESSION: The lungs are clear. No pleural effusion or pneumothorax. The cardiomediastinal silhouette is normal. Left chest cardiac device. No acute osseous abnormalities. [facility]-[id number] Procedure Note Interface, Radiology Results Incoming - 01/17/2018 12:37 AM CDT EXAMINATION: XR CHEST 1 VW PORTABLE CLINICAL HISTORY: fall COMPARISON: 07/05/2017 chest x-ray. IMPRESSION: The lungs are clear. No pleural effusion or pneumothorax. The cardiomediastinal silhouette is normal. Left chest cardiac device. No acute osseous abnormalities. [facility]-[id number] Performing Organization Address [facility] Phone Number [facility] [address] [place] [address] * XR Shoulder 2+ Vw Left (01/16/2018 11:17 PM CDT) Narrative Performed At EXAMINATION:XR SHOULDER 2VW LEFT [facility] CLINICAL HISTORY:FALL COMPARISON:None. IMPRESSION: No evidence of acute left shoulder fracture or dislocation. Soft tissues are unremarkable. Medical nerve stimulator is partially visualized. [facility]-[id number] Procedure Note Interface, Radiology Results Incoming - 01/16/2018 11:22 PM CDT EXAMINATION: XR SHOULDER 2 VW LEFT CLINICAL HISTORY: FALL COMPARISON: None. IMPRESSION: No evidence of acute left shoulder fracture or dislocation. Soft tissues are unremarkable. Medical nerve stimulator is partially visualized. [facility]-[id number] Performing Organization Address [facility] Phone Number [facility] [address] [place] [address] * XR Ankle 3+ Vw Left (01/16/2018 [...] of the ankle. There are calcaneal enthesophytes. [facility]-[id number] Procedure Note Interface, Radiology Results Incoming - [...] of the ankle. There are calcaneal enthesophytes. [facility]-[id number] Performing Organization Address City/State/Zipcode Phone Number [facility] [address] [place] [address] * SPLINT APPLICATION (01/16/2018 11:14 PM CDT) Narrative Performed At LEONIDAS Orozco 01/17/20184:40 AM Splint Application Performed by: ULI ORTEGA Authorized by: CHACHA MALONE Consent: Consent obtained:Verbal Consent given by:Patient Risks discussed:Discoloration, numbness, pain and swelling Alternatives discussed:Referral, observation, alternative treatment, delayed treatment and no treatment Pre-procedure details: Sensation:Normal Skin color:Fossil Procedure details: Laterality:Left Location:Ankle Ankle:L ankle Splint type:Short leg Supplies:Cotton padding, elastic bandage and Ortho-Glass Post-procedure details: Pain:Improved Sensation:Normal Skin color:Fossil Patient tolerance of procedure:Tolerated well, no immediate [...] acute osseous abnormality of the cervical spine. [facility]-[id number] Procedure Note Interface, Radiology Results Incoming - 01/16/2018 11:15 [...] acute osseous abnormality of the cervical spine. [facility]-[id number] Performing Organization Address City/State/Zipcode Phone Number [facility] [address] [place] [address] * CT Head Wo Contrast (01/16/2018 11:02 PM CDT) Only the most recent of 2 results within the time period is included. Narrative Performed At EXAMINATION: CT HEAD WO CONTRAST [facility] CLINICAL HISTORY: FALL COMPARISON:11/19/[address] TECHNIQUE: [...] normal. IMPRESSION: No acute intracranial abnormality identified. [facility]-[id number] Procedure Note Interface, Radiology Results Incoming - [...] normal. IMPRESSION: No acute intracranial abnormality identified. [facility]-[id number] Performing Organization Address City/[facility]/Zipcode Phone Number [facility] [address] [place] [address] * Partial thromboplastin time, activated (01/16/2018 10:45 PM CDT) Only the most recent of 2 results within the time period is included. PTT 27.1 23.0 - 36.[address] [facility] DEPARTMENT OF Comment: PATHOLOGY AND PTT therapeutic range for [facility] MEDICINE unfractionated heparin is 61.0-112.0 seconds which corresponds to Anti-Xa 0.3-0.7 U/ml. Specimen Blood Performing Organization Address [facility] Phone Number [address] [place] [address] PATHOLOGY AND EQAL [facility] * Prothrombin time with INR (01/16/2018 10:45 PM CDT) Only the most recent of 5 results within the time period is included. Prothrombin time 13.9 12.0 - 15.[address] [facility] DEPARTMENT OF PATHOLOGY AND EQAL MEDICINE INR 1.[address] [facility] DEPARTMENT OF Comment: PATHOLOGY AND The International Normalized [facility] Ratio (INR) is a therapeutic monitoring tool for patients who are stable on oral anticoagulant therapy. An INR of 2.0-3.0 is suggested for deep vein thrombosis/pulmonary embolism. Specimen Blood Performing Organization Address [facility] Phone Number [address] [place] [address] PATHOLOGY AND GENOMIC MEDICINE * hCG qualitative, serum screen (01/16/2018 10:45 PM CDT) Only the most recent of 2 results within the time period is included. hCG qualitative, serum Negative [facility] DEPARTMENT OF PATHOLOGY AND EQAL MEDICINE Specimen Blood Performing Organization Address [facility] Phone Number [address] [place] [address] PATHOLOGY AND EQAL MEDICINE * Estimated GFR (12/08/2017 5:45 PM CDT) Only the most recent of 4 results within the time period is included. GFR Non Af Amer 77 mL/min/1.[address] [facility] DEPARTMENT OF PATHOLOGY AND GENOMIC MEDICINE GFR Af Amer >90 mL/min/1.[address] [facility] DEPARTMENT OF Comment: PATHOLOGY AND Chronic kidney [...] Americans. Specimen Plasma specimen Performing Organization Address [facility] Phone Number [address] [place] [address] PATHOLOGY AND [facility] * Lipase level (12/08/2017 5:45 PM CDT) Lipase 63 (H) 13 - 60 U/L [facility] PATHOLOGY AND GENOMIC MEDICINE Specimen Plasma specimen Performing Organization Address [facility] Number [address] [place] [address] PATHOLOGY AND [facility] * Hepatic function panel (12/08/2017 5:45 PM CDT) Albumin 4.3 3.5 - 5.0 g/dL [facility] DEPARTMENT OF PATHOLOGY AND GENOMIC MEDICINE Total bilirubin 0.2 0.0 - 1.2 mg/dL [facility] DEPARTMENT OF PATHOLOGY AND GENOMIC MEDICINE Bilirubin direct <0.1 0.0 - 0.3 mg/dL [facility] DEPARTMENT OF PATHOLOGY AND GENOMIC MEDICINE Alkaline phosphatase 115 (H) 35 - 104 U/L [facility] DEPARTMENT OF PATHOLOGY AND GENOMIC MEDICINE Protein 6.9 6.3 - 8.3 g/dL [facility] DEPARTMENT OF Comment: PATHOLOGY AND GENOMIC MEDICINE 4.6-7.0 g/dL 1 week 4.4-7.6 g/dL 7 months-1year 5.1-7.3 g/dL 1-2 years5.6-7 .5 g/dL >3 years6.0-8 .0 g/dL 18-150 6.3-8.3 g/dL ALT 12 5 - 50 U/L [facility] DEPARTMENT OF PATHOLOGY AND GENOMIC MEDICINE AST 13 10 - 35 U/L [facility] DEPARTMENT OF PATHOLOGY AND GENOMIC MEDICINE Specimen Plasma specimen Performing Organization Address [facility] Phone Number [address] [place] [address] PATHOLOGY AND GENOMIC MEDICINE * CT Renal [...] throughout the colon, correlate for underlying constipation. [id number] Procedure Note Hm Interface, Radiology Results Incoming [...] throughout the colon, correlate for underlying constipation. [facility]-[id number] Performing Organization Address City/State/[facility] Phone Number [facility] [address] [place] [address] * XR Knee 4+ Vw Left (11/19/2017 6:15 PM CDT) Narrative Performed At EXAMINATION:XR KNEE 4VW LEFT [facility] CLINICAL HISTORY:Knee paininitial exam COMPARISON:None. IMPRESSION: There is no evidence of left knee fracture, dislocation, or joint effusion. Bone mineralization is normal. Minimal osteophytic change about the medial and lateral joint lines [id number] Procedure Note Hm Interface, Radiology Results Incoming - 11/19/2017 6:20 PM CDT EXAMINATION: XR KNEE 4 VW LEFT CLINICAL HISTORY: Knee pain initial exam COMPARISON: None. IMPRESSION: There is no evidence of left knee fracture, dislocation, or joint effusion. Bone mineralization is normal. Minimal osteophytic change about the medial and lateral joint lines [id number] Performing Organization Address [facility] Phone Number [facility] [address] [place] [address] * Group A strep, rapid antigen (07/05/2017 5:25 PM REHAB SERVICES AIDE) Group A strep, rapid Negative for Group A [facility] DEPARTMENT OF antigen result Streptococcus antigen. PATHOLOGY AND Comment: GENOMIC MEDICINE Specimen Information Specimen Source: Throat Specimen Site: Not otherwise specified Specimen Throat - Not otherwise specified Performing Organization Address [facility] Number [address] [place] [id number] PATHOLOGY AND GENOMIC MEDICINE * Influenza antigen (07/05/2017 5:25 PM REHAB SERVICES AIDE) Influenza antigen Negative for Influenza A/B [facility] DEPARTMENT OF antigen. PATHOLOGY AND Comment: GENOMIC MEDICINE Specimen Information Specimen Source: Nares Specimen Site: Other Specimen Nares - Other- Detailed Description Required Performing Organization Address [facility] Phone Number [address] [place] [address] PATHOLOGY AND GENOMIC MEDICINE * XR Ribs 2 Vw Right (07/05/2017 5:03 PM REHAB SERVICES AIDE) Narrative Performed At EXAMINATION: XR RIBS 2 VW RIGHT [facility] INDICATION: fall chest wall pain COMPARISON: 07/05/2017 IMPRESSION: Acute minimally displaced fracture of the right lateral 10th rib no other definite rib fracture is visualized. Nondisplaced fracture of the right lateral ninth rib. [facility]-[id number] Procedure Note Interface, Radiology Results Incoming - 07/05/2017 5:11 PM REHAB SERVICES AIDE EXAMINATION: XR RIBS 2 VW RIGHT INDICATION: fall chest wall pain COMPARISON: 07/05/2017 IMPRESSION: Acute minimally displaced fracture of the right lateral 10th rib no other definite rib fracture is visualized. Nondisplaced fracture of the right lateral ninth rib. [facility]-[id number] Performing Organization Address [facility] Phone Number [facility] [address] [place] [address] * XR Chest 2 Vw (07/05/2017 5:03 PM REHAB SERVICES AIDE) Narrative Performed At EXAMINATION: XR CHEST 2 VW [facility] INDICATION: cough COMPARISON: 02/07/2014 IMPRESSION: Hypoventilation of the lungs with crowding of the vascular markings. Vagal nerve stimulator overlying the left chest wall. Mild vascular congestion without focal infiltrate, effusion, or pneumothorax. Spondylosis thoracic spine. Upper quadrant surgical clips. [facility]-[id number] Procedure Note Interface, Radiology Results Incoming - 07/05/2017 5:09 PM REHAB SERVICES AIDE EXAMINATION: XR CHEST 2 VW INDICATION: cough COMPARISON: 02/07/2014 IMPRESSION: Hypoventilation of the lungs with crowding of the vascular markings. Vagal nerve stimulator overlying the left chest wall. Mild vascular congestion without focal infiltrate, effusion, or pneumothorax. Spondylosis thoracic spine. Upper quadrant surgical clips. [facility]-[id number] Performing Organization Address [facility] Phone Number [facility] [address] [place] [address] * Strep screen culture (07/05/2017 4:25 PM REHAB SERVICES AIDE) Strep screen culture No beta hemolytic Streptococci [facility] DEPARTMENT OF isolate isolated PATHOLOGY AND Comment: GENOMIC MEDICINE Specimen Information Specimen Source: Throat Specimen Site: Not otherwise specified Specimen Throat - Not otherwise specified Performing Organization Address City/[facility] Phone Number [facility] DEPARTMENT OF [address] [place] [address] PATHOLOGY AND GENOMIC MEDICINE * Anti Xa, unfractionated (04/21/2017 6:05 AM REHAB SERVICES AIDE) Only the most recent of 5 results within the time period is included. Anti Xa, unfractionated 0.36Comment: Therapeutic 0.30 - 0.70 U/mL [facility] DEPARTMENT OF Range: 0.30 - 0.70 U/mL PATHOLOGY AND GENOMIC MEDICINE Specimen Blood Performing Organization Address City/[facility]/Zipcode [place] [address] [place] [address] PATHOLOGY AND GENOMIC MEDICINE * PV duplex venous lower extremity (04/18/2017 3:35 PM REHAB SERVICES AIDE) Narrative Performed At [facility] The left lower extremity venous study is positive for DVT with a small amount of thrombus seen withimn a gastrocnemius vein. Performing Organization Address [facility] Phone Number [facility] [address] [place] [address] * US Renal (04/18/2017 1:38 PM REHAB SERVICES AIDE) Narrative Performed At EXAMINATION:US RENAL [facility] CLINICAL [...] sides. IMPRESSION: No significant finding is identified. [id number] Procedure Note Interface, Radiology Results Incoming - 04/18/2017 3:47 PM REHAB SERVICES AIDE EXAMINATION: US RENAL CLINICAL HISTORY: N39.0 Urinary [...] sides. IMPRESSION: No significant finding is identified. [id number] Performing Organization Address City/[facility]/Zipcode Phone Number [facility] [address] [place] [address] after 04/08/2017 Insurance Payer Benefit Subscriber ID Type Phone Address Plan / Group MEDICARE MEDICARE xxxxxxxxxx Medicare [place] B MEDICAID MEDICAID xxxxxxxxx Medicaid Advance Directives Patient has advance care planning documents, and code status on file. For more i nformation, please contact: Hari Moss [address] [place] [address] Date Inactivated Comments Code Status Date Activated 03/29/2017 4:04 PM Full Code 03/26/2017 10:10 PM Code Status decision reached by: Patient
--- OUTSIDE RECORDS SUMMARY | 2018-04-09 06:08 | XMS REPORT | Clinical Summary ---
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 Name Role Phone Gerber Burch PCP Allergies [...] Dx) 11/11/2017 Outside Orders Central Scheduling after 04/08/2017 Social History Date Tobacco Use Types Packs/Day [...] not intractable, without status epilepticus (HCC) after 04/08/2017 Results * EEG Awake & Drowsy (11/18/2017 2:11 PM CDT) Narrative Performed At Date(s) of EE11/18/2017 [facility] DATE OF REPORT: 11/18/2017 ACC: [id number] EEG Number: [id number] Test Location: Outpatient EEG Lab Start time: 13:29 Stop time: 14:00 ICD-10: R56.9 CPT Code: 44995 HISTORY: 47 yo female with episodes of [...] of EE11/18/2017 DATE OF REPORT: 11/18/2017 ACC: [id number] EEG Number: [id number] Test Location: Outpatient EEG Lab Start time: 13:29 Stop time: 14:00 ICD-10: R56.9 CPT Code: 92831 HISTORY: 47 yo female with episodes of [...] Address City/State/Zipcode Phone Number [facility]IS after 04/08/2017 Insurance Payer Benefit Subscriber ID Type Phone Address Plan / Group MEDICARE MEDICARE A xxxxxxxxxx Medicare B MEDICAID MEDICAID xxxxxxxxx Medicaid OF [place] Advance Directives For more information, please contact: [address] [address] Date Inactivated Comments Code Status Date Activated 01/23/2017 2:40 PM Full Code 01/20/2017 8:53 AM This code status was determined by: Patient
[2018-04-09 08:54] VITALS: BP 120/81
== END | disposition home or self-care (01) ==
LOC: OR 06:04
PROVIDERS: ATTEND Internal Medicine Gastroenterology
DX: K59.00 Constipation, unspecified (principal); D12.2 Benign neoplasm of ascending colon; K58.9 Irritable bowel syndrome, unspecified; K64.8 Other hemorrhoids; Z71.3 Dietary counseling and surveillance; E66.9 Obesity, unspecified; E11.9 Type 2 diabetes mellitus without complications; G40.909 Epilepsy, unspecified, not intractable, without status epilepticus; G89.29 Other chronic pain; Z79.4 Long term (current) use of insulin; Z68.32 Body mass index [BMI] 32.0-32.9, adult; Z80.0 Family history of malignant neoplasm of digestive organs
CPT/HCPCS: 36415; 45385; 82948; J2250; J7070; 45378; 45384

== ENCOUNTER 2018-07-18 08:28 | Emergency (ER) | payer MEDICARE ==
[~2018-07-18] VITALS: Ht 165.1 cm; Wt 83.5 kg
[~2018-07-18 08:28] MED LIST changes: -DEXTROSE 5% 250ML 250 ML IV ONE; -FENTANYL CITRATE/PF 100MCG/2 ML INJ ONE; -MIDAZOLAM HCL 2 MG/2 ML VIAL ONE; -PROPOFOL IV EMULSION 10 MG/ML 50 ML VIAL ONE
--- OUTSIDE RECORDS SUMMARY | 2018-07-18 08:33 | XMS REPORT | Clinical Summary ---
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 Name Role Phone Gerber Burch PCP Allergies [...] Dx) 11/11/2017 Outside Orders Central Scheduling after 07/17/2017 Social History Date Tobacco Use Types Packs/Day [...] not intractable, without status epilepticus (HCC) after 07/17/2017 Results * EEG Awake & Drowsy (11/18/2017 2:11 PM CDT) Narrative Performed At Date(s) of EE11/18/2017 [facility] DATE OF REPORT: 11/18/2017 ACC: [id number] EEG Number: [id number] Test Location: Outpatient EEG Lab Start time: 13:29 Stop time: 14:00 ICD-10: R56.9 CPT Code: 23781 HISTORY: 47 yo female with episodes of [...] of EE11/18/2017 DATE OF REPORT: 11/18/2017 ACC: [id number] EEG Number: [id number] Test Location: Outpatient EEG Lab Start time: 13:29 Stop time: 14:00 ICD-10: R56.9 CPT Code: 05042 HISTORY: 47 yo female with episodes of [...] Address City/State/Zipcode Phone Number GE RIS after 07/17/2017 Insurance Payer Benefit Subscriber ID Type Phone Address Plan / Group MEDICARE MEDICARE A xxxxxxxxxx Medicare B MEDICAID MEDICAID xxxxxxxxx Medicaid [place] Advance Directives For more information, please contact: [address] [address] Date Inactivated Comments Code Status Date Activated 01/23/2017 2:40 PM Full Code 01/20/2017 8:53 AM This code status was determined by: Patient
--- OUTSIDE RECORDS SUMMARY | 2018-07-18 08:33 | XMS REPORT | Clinical Summary ---
Author Author [facility] Organization [facility] Address Unknown Phone Unavailable Care Team Providers Care Floor Associate Name Role Phone Gerber Burch MD PCP [...] 8 TWICE DAILY Active estradiol (ESTRACE) 0.01 INSERT 2 42.5 g 0 % (0.1 mg/gram) vaginal GRAMS IN THE 9 cream VAGINA THREE TIMES PER WEEK AT 9 PM DIRECTED Active estradiol (ESTRACE) 0.01 Insert 2 g 42.5 g 3 % (0.1 mg/gram) vaginal into the 9 cream vagina 3 (three) times a week. 03/01/2018 Discontinued VIMPAT 200 mg tablet Take [...] 12 (twelve) hours as needed for pain. 01/17/2018 Discontinued JANUVIA 100 mg tablet TK 1 T PO QD 0 IN THE 7 AFTERNOON 12/08/2017 Discontinued ondansetron (ZOFRAN) 4 MG TK 1 T PO Q 8 2 tablet H PRN FOR 7 NAUSEA 01/17/2018 Discontinued levETIRAcetam (KEPPRA) Take 1,000 mg 3 1000 MG tablet by mouth 2 7 (two) times a day. Pt takes in the afternoon and bedtime 01/17/2018 Discontinued B-complex with vitamin C Take 1 tablet 0 tablet by mouth every morning. 09/08/2017 Discontinued nitrofurantoin Take 1 30 capsule 3 (MACRODANTIN) 100 MG capsule (100 7 capsule mg total) by mouth nightly for 30 days. 08/19/2017 Discontinued doxycycline (VIBRAMYCIN) Take 2 [...] (two) times a day for 7 days. 06/08/2018 Discontinued estradiol (ESTRACE) 0.01 Insert 2 g 42.5 g 3 % (0.1 mg/gram) vaginal into the 8 cream vagina 3 (three times a week at 2100. 04/04/2018 levothyroxine (SYNTHROID, Take 1 tablet 30 tablet 0 LEVOXYL) 25 mcg tablet (25 mcg 8 total) by mouth daily for 30 days. 05/12/2018 Discontinued doxycycline (VIBRA-TABS) TAKE 1 14 tablet 0 100 MG tablet TABLET(100 8 MG) BY MOUTH TWICE DAILY FOR 7 DAYS 05/19/2018 doxycycline (VIBRA-TABS) TAKE 1 14 tablet 0 100 MG tablet TABLET(100 9 MG) BY MOUTH TWICE DAILY FOR 7 DAYS 06/09/2018 Discontinued ampicillin (PRINCIPEN) Take 1 14 capsule 0 500 MG capsule capsule (500 9 mg total) by mouth 2 (two) times a day for 7 days. 06/11/2018 Discontinued estradiol (ESTRACE) 0.01 Insert 2 g 42.5 g 3 % (0.1 mg/gram) vaginal into the 9 cream vagina 3 (three) times a week. 06/16/2018 ampicillin (PRINCIPEN) TAKE ONE 14 capsule 0 500 MG capsule CAPSULE BY 9 MOUTH TWICE DAILY FOR 7 DAYS 07/06/2018 levoFLOXacin (LEVAQUIN) Take 1 tablet 7 tablet 0 500 MG tablet (500 mg 9 total) by mouth daily for 7 days. Active Problems Problem Noted [...] Encounters Care Team Description Date Type Specialty Sandra Shah MA 06/29/2018 Orders Only Urology Urinary tract infection without hematuria, site unspecified (Primary Dx) 06/26/2018 Clinical Urology Support Emmanuel Garber MD 06/23/2018 Telephone Urology 06/20/2018 Emergency Emergency Medicine Emmanuel Garber MD 06/20/2018 Refill Urology Emmanuel Garber MD 06/11/2018 Refill Urology Emmanuel Garber MD 06/09/2018 Refill Urology Emmanuel Garber MD 06/04/2018 Refill Urology Sandra Shah MA 05/20/2018 Orders Only Urology Urinary tract infection without hematuria, site unspecified (Primary Dx) 05/15/2018 Clinical Urology Support Emmanuel Garber MD 05/12/2018 Refill Urology Emmanuel Garber MD 05/12/2018 Refill Urology Emmanuel Garber MD 04/22/2018 Refill Urology Emmanuel Garber MD 04/07/2018 Telephone Urology Emmanuel Garber MD 04/06/2018 Refill Urology Emmanuel Garber MD [...] Dx); Suicide attempt (HCC); Generalized weakness 03/01/2018 Hospital General Internal Medicine - Encounter 03/04/2018 [...] Support Emmanuel Garber MD 07/21/2017 Telephone Urology after 07/17/2017 Immunizations Name Dates Previously Given Next Due [...] Vital Signs Time Taken Vital Sign Reading 06/20/2018 1:04 AM RIVET HAMMER MACHINE OPERATOR Blood Pressure 147/88 06/20/2018 1:04 AM RIVET HAMMER MACHINE OPERATOR Pulse 106 06/20/2018 1:04 AM RIVET HAMMER MACHINE OPERATOR Temperature 36.8 C (98.2 F) 06/20/2018 1:04 AM RIVET HAMMER MACHINE OPERATOR Respiratory Rate 18 03/04/2018 4:11 AM RIVET HAMMER MACHINE OPERATOR Oxygen Saturation 96% - Inhaled Oxygen - Concentration 03/01/2018 1:55 AM CDT Weight 81.6 kg (180 lb) 03/01/2018 1:55 AM CDT Height 167.6 cm (5' 6") 03/01/2018 1:55 AM CDT Body Mass Index 29.05 Plan of Treatment Care Team Description Date Type Specialty Emmanuel Garber MD [address] [facility] [address] [place] [address] [phone] 08/25/2018 Office Visit Urology Health Maintenance Due Date Last Done Comments DIABETIC RETINAL EYE EXAM 1970 DIABETIC FOOT EXAM 1980 URINE MICROALBUMIN 1980 CERVICAL CANCER SCREENING 1991 INFLUENZA VACCINE 11/26/2017 Implants Device Identifier Shelf Expiration Date Model / Serial / Lot Implanted Type Area Manufactur er Vagus Nerve Stimulator Vns Pins Procedures Comments Procedure Name Priority Date/Time Associated Diagnosis MICROSCOPIC EXAMINATION Routine 06/26/2018 3:12 PM RIVET HAMMER MACHINE OPERATOR URINALYSIS, COMPLETE, Routine 06/26/2018 Urinary tract infection WITH REFLEX TO CULTURE 3:12 PM RIVET HAMMER MACHINE OPERATOR without hematuria, site unspecified URINE CULTURE, Routine 06/26/2018 COMPREHENSIVE (YOJANA 3:12 PM RIVET HAMMER MACHINE OPERATOR HIST) MICROSCOPIC EXAMINATION Routine 05/15/2018 2:59 PM RIVET HAMMER MACHINE OPERATOR URINALYSIS, COMPLETE, Routine 05/15/2018 Urinary tract infection WITH REFLEX TO CULTURE 2:59 PM RIVET HAMMER MACHINE OPERATOR without hematuria, site unspecified URINE CULTURE, Routine 05/15/2018 COMPREHENSIVE (YOJANA 2:59 PM RIVET HAMMER MACHINE OPERATOR HIST) MICROSCOPIC EXAMINATION Routine 03/13/2018 1:13 PM RIVET HAMMER MACHINE OPERATOR URINALYSIS, COMPLETE, Routine 03/13/2018 Urinary tract infection WITH REFLEX TO CULTURE 1:13 PM RIVET HAMMER MACHINE OPERATOR without hematuria, site unspecified URINE CULTURE, Routine 03/13/2018 COMPREHENSIVE (YOJANA 1:13 PM RIVET HAMMER MACHINE OPERATOR HIST) POC GLUCOSE Routine 03/04/2018 10:49 AM RIVET HAMMER MACHINE OPERATOR POC GLUCOSE Routine 03/04/2018 5:39 AM RIVET HAMMER MACHINE OPERATOR POC GLUCOSE Routine 03/03/2018 6:52 PM RIVET HAMMER MACHINE OPERATOR POC GLUCOSE Routine 03/03/2018 11:38 AM RIVET HAMMER MACHINE OPERATOR POC GLUCOSE Routine 03/03/2018 7:30 AM RIVET HAMMER MACHINE OPERATOR ESTIMATED GFR Routine 03/03/2018 5:41 AM RIVET HAMMER MACHINE OPERATOR BASIC METABOLIC PANEL Routine 03/03/2018 5:41 AM RIVET HAMMER MACHINE OPERATOR POC GLUCOSE Routine 03/03/2018 5:40 AM RIVET HAMMER MACHINE OPERATOR POC GLUCOSE Routine 03/02/2018 8:23 PM RIVET HAMMER MACHINE OPERATOR POC GLUCOSE Routine 03/02/2018 4:46 PM RIVET HAMMER MACHINE OPERATOR POC GLUCOSE Routine 03/02/2018 12:15 PM RIVET HAMMER MACHINE OPERATOR POC GLUCOSE Routine 03/02/2018 10:21 AM RIVET HAMMER MACHINE OPERATOR POC GLUCOSE Routine 03/02/2018 9:50 AM RIVET HAMMER MACHINE OPERATOR POC GLUCOSE Routine 03/02/2018 6:07 AM RIVET HAMMER MACHINE OPERATOR POC GLUCOSE Routine 03/01/2018 8:32 PM RIVET HAMMER MACHINE OPERATOR POC GLUCOSE Routine 03/01/2018 4:30 PM RIVET HAMMER MACHINE OPERATOR POC GLUCOSE Routine 03/01/2018 7:42 AM RIVET HAMMER MACHINE OPERATOR URINE DRUGS OF ABUSE STAT 03/01/2018 SCREEN 6:00 AM RIVET HAMMER MACHINE OPERATOR URINALYSIS SCREEN AND STAT 03/01/2018 MICROSCOPY, WITH REFLEX 6:00 AM RIVET HAMMER MACHINE OPERATOR TO CULTURE GRAM STAIN STAT 03/01/2018 6:00 AM RIVET HAMMER MACHINE OPERATOR URINE CULTURE STAT 03/01/2018 6:00 AM RIVET HAMMER MACHINE OPERATOR HEMOGLOBIN A1C Routine 03/01/2018 1:33 AM CDT [...] PRELIMINARY Routine 01/16/2018 INTERPRETATION 11:14 PM CDT NM APPLY LOWER LEG SPLINT Routine 01/16/2018 11:14 [...] 07/21/2017 COMPREHENSIVE (YOJANA 2:51 PM CDT HIST) after 07/17/2017 Results * Urine Culture, Comprehensive (06/26/2018 3:12 PM RIVET HAMMER MACHINE OPERATOR) Only the most recent of 5 results within the time period is included. Urine culture Beta hemolytic Streptococcus, [facility] group B Greater than 100,000 colony forming units per mL (A) Comment: Penicillin and ampicillin are drugs of choice for treatment of beta-hemolytic streptococcal infections. Susceptibility testing of penicillins and other beta-lactam agents approved by the FDA for treatment of beta-hemolytic streptococcal infections need not be performed routinely because nonsusceptible isolates are extremely rare in any beta-hemolytic streptococcus and have not been reported for Streptococcus pyogenes (group A). (CLSI) Urine culture Mixed urogenital dulce [facility] 10,000-25,000 colony forming units per mL Narrative Performed At Performed at:01 - [facility] [address] [place], [id number] Numerologist: Jose Acevedo MD, Phone:[phone] Performing Organization Address City/State/Zipcode Phone Number [facility] * URINALYSIS, COMPLETE, WITH REFLEX TO CULTURE (06/26/2018 3:12 PM RIVET HAMMER MACHINE OPERATOR) Only the most recent of 5 results within the time period is included. Specific gravity, urine 1.026 1.005 - 1.030 [facility] pH, urine 7.5 5.0 - 7.5 [facility] Color, UA Yellow Yellow [facility] Appearance Clear Clear [facility] WBC esterase, urine 2+ (A) Negative [facility] Protein, UA Negative Negative/Trace [facility] Glucose, urine 3+ (A) Negative [facility] Ketones, UA Negative Negative [facility] Occult blood, urine Negative Negative [facility] Bilirubin, UA Negative Negative [facility] Urobilinogen, UA 1.0 0.2 - 1.0 mg/dL [facility] Nitrite, UA Negative Negative [facility] Microscopic examination See below:Comment: Microscopic [facility] was indicated and was performed. Urinalysis reflex CommentComment: This specimen [facility] has reflexed to a Urine Culture. Narrative Performed At Performed at: [facility] [address] [place], [place] [id number] Numerologist: Jose Acevedo MD, Phone:[phone] Performing Organization Address [facility] Phone Number [facility] * Microscopic Examination (06/26/2018 3:12 PM RIVET HAMMER MACHINE OPERATOR) Only the most recent of 5 results within the time period is included. WBC, UA 0-5 0 - 5 /hpf [facility] RBC, UA None seen 0 - 2 /hpf [facility] Epithelial cells (non 0-10 0 - 10 /hpf [facility] renal) Mucus, UA Present Not Estab. [facility] Bacteria, UA Few None seen/Few [facility] Narrative Performed At Performed at: [facility] [address] [place], [place] [id number] Numerologist: Jose Acevedo MD, Phone:[phone] Performing Organization Address City/[facility] Phone Number [facility] * POC glucose (03/04/2018 10:49 AM RIVET HAMMER MACHINE OPERATOR) Only the most recent of 22 results within the time period is included. POC glucose 251 (H) 65 - 99 mg/dL [facility] DEPARTMENT OF Comment: PATHOLOGY AND Meter ID: [id number] GENOMIC MEDICINE Eclectic Doctor: Debora Steel Performing Organization Address City/[facility] Cent[facility] Phone Number [facility] DEPARTMENT [place] [address] [place] [address] PATHOLOGY AND GENOMIC MEDICINE * Estimated GFR (03/03/2018 5:41 AM RIVET HAMMER MACHINE OPERATOR) Only the most recent of 4 results within the time period is included. Estimated GFR >=90 mL/min/1.73 m2 [facility] DEPARTMENT OF Comment: PATHOLOGY AND CatergoryUnitsInte GENOMIC MEDICINE rpretation G1 >=90 Normal or high G2 60-89Mildly decreased [id number] Mildly to moderately decreased [id number] Moderately to severely decreased G4 15-29Severely decreased G5 <15Kidney failure The eGFR was calculated using the Chronic Kidney Disease Epidemiology Collaboration (CKD-EPI) equation. Interpretation is based on recommendations of the National Kidney Foundation-Kidney Disease Outcomes Quality Initiative (NKF-KDOQI) published in 2014. Specimen Plasma specimen Performing Organization Address City/[facility] Phone Number [facility] [place] [id number] [place] [address] [place] [address] PATHOLOGY AND [facility] * Basic metabolic panel (03/03/2018 5:41 AM RIVET HAMMER MACHINE OPERATOR) Only the most recent of 3 results within the time period is included. Sodium 139 135 - 148 mEq/L [facility] DEPARTMENT OF PATHOLOGY AND GENOMIC MEDICINE Potassium 4.1 3.5 - 5.0 mEq/L [facility] DEPARTMENT OF PATHOLOGY AND GENOMIC MEDICINE Chloride 101 98 - 112 mEq/L [facility] DEPARTMENT OF PATHOLOGY AND GENOMIC MEDICINE CO2 27 24 - 31 mEq/L [facility] OF PATHOLOGY AND GENOMIC MEDICINE Anion gap 11@ANIO 7 - 15 mEq/L [facility] DEPARTMENT OF PATHOLOGY AND GENOMIC MEDICINE BUN 13 6 - 20 mg/dL [facility] DEPARTMENT OF PATHOLOGY AND GENOMIC MEDICINE Creatinine 0.70 0.50 - 0.90 mg/dL [facility] DEPARTMENT OF PATHOLOGY AND GENOMIC MEDICINE Glucose 142 (H) 65 - 99 mg/dL [facility] DEPARTMENT OF PATHOLOGY AND GENOMIC MEDICINE Calcium 9.7 8.3 - 10.2 mg/dL [facility] DEPARTMENT OF PATHOLOGY AND GENOMIC MEDICINE Specimen Plasma specimen Performing Organization Address [facility]ode Phone Number [facility] OF [address] [place] [address] [place] [address] PATHOLOGY AND [facility] * Urinalysis screen and microscopy, with reflex to culture (03/01/2018 6:00 AM RIVET HAMMER MACHINE OPERATOR) Only the most recent of 3 results within the time period is included. Specimen site Clean catch [facility] DEPARTMENT OF PATHOLOGY AND GENOMIC MEDICINE Color, UA Yellow [facility] DEPARTMENT OF PATHOLOGY AND GENOMIC MEDICINE Appearance, UA Slightly-Cloudy [facility] DEPARTMENT OF PATHOLOGY AND GENOMIC MEDICINE Specific gravity, UA 1.012 1.001 - 1.035 [facility] DEPARTMENT OF PATHOLOGY AND GENOMIC MEDICINE pH, UA 5.0 5.0 - 8.5 [facility] DEPARTMENT OF PATHOLOGY AND GENOMIC MEDICINE Protein, UA Negative Negative [facility] DEPARTMENT OF PATHOLOGY AND GENOMIC MEDICINE Glucose, UA 3+ (A) Negative [facility] DEPARTMENT OF PATHOLOGY AND GENOMIC MEDICINE Ketones, UA Negative Negative [facility] DEPARTMENT OF PATHOLOGY AND GENOMIC MEDICINE Bilirubin, UA Negative Negative [facility] DEPARTMENT OF PATHOLOGY AND GENOMIC MEDICINE Blood, UA Negative Negative [facility] DEPARTMENT OF PATHOLOGY AND GENOMIC MEDICINE Nitrite, UA Negative Negative [facility] DEPARTMENT OF PATHOLOGY AND GENOMIC MEDICINE Urobilinogen, UA Negative <2.0 [facility] DEPARTMENT OF PATHOLOGY AND GENOMIC MEDICINE Leukocyte esterase, UA Small (A) Negative [facility] DEPARTMENT OF PATHOLOGY AND GENOMIC MEDICINE Round epithelial cells, Few 0 - 1 /HPF [facility] DEPARTMENT OF PATHOLOGY AND GENOMIC MEDICINE WBC, UA 11-20 (H) 0 - 4 /HPF [facility] DEPARTMENT OF PATHOLOGY AND GENOMIC MEDICINE RBC, UA 0-5 0 - 5 /HPF [facility] DEPARTMENT OF PATHOLOGY AND GENOMIC MEDICINE Bacteria, UA Trace None seen [facility] DEPARTMENT OF PATHOLOGY AND GENOMIC MEDICINE Yeast, UA None seen [facility] DEPARTMENT OF PATHOLOGY AND GENOMIC MEDICINE Yeast with pseudohyphae, None seen [facility] DEPARTMENT [facility] PATHOLOGY AND GENOMIC MEDICINE Specimen Urine Performing Organization Address City/State/Zipcode Phone Number [place] [id number] [place] [address] PATHOLOGY AND GENOMIC MEDICINE * Urine drugs of abuse screen (03/01/2018 6:00 AM RIVET HAMMER MACHINE OPERATOR) Amphetamine screen, urine Negative [facility] DEPARTMENT OF PATHOLOGY AND GENOMIC MEDICINE Methamphetamine screen, Negative [facility] DEPARTMENT OF urine PATHOLOGY AND GENOMIC MEDICINE Barbiturate screen, urine Negative [facility] DEPARTMENT OF PATHOLOGY AND GENOMIC MEDICINE Benzodiazepine screen, Positive (A) [facility] DEPARTMENT OF urine PATHOLOGY AND GENOMIC MEDICINE Cocaine screen, urine Negative [facility] DEPARTMENT OF PATHOLOGY AND GENOMIC MEDICINE Methadone screen, urine Negative [facility] DEPARTMENT OF PATHOLOGY AND GENOMIC MEDICINE Opiates screen, urine Negative [facility] DEPARTMENT OF PATHOLOGY AND GENOMIC MEDICINE Phencyclidine screen, Negative [facility] DEPARTMENT OF urine PATHOLOGY AND GENOMIC MEDICINE Cannabinoid screen, urine Negative [facility] DEPARTMENT OF PATHOLOGY AND GENOMIC MEDICINE Tricyclic screen, urine Negative [facility] DEPARTMENT OF Comment: PATHOLOGY AND Drug screen [...] Address City/State/Zipcode [place] [address] [place] [address] PATHOLOGY AND GENOMIC MEDICINE * Gram stain (03/01/2018 6:00 AM RIVET HAMMER MACHINE OPERATOR) Only the most recent of 3 results within the time period is included. Gram stain result Occasional Gram negative rods [facility] DEPARTMENT OF Rare WBC's PATHOLOGY AND Comment: GENOMIC MEDICINE Specimen Information Specimen Source: Urine Specimen Site: Clean catch Specimen Urine Performing Organization Address City/[facility] Centercode Phone Number [facility] DEPARTMENT OF [address] [place] [address] PATHOLOGY AND GENOMIC MEDICINE * Urine culture (03/01/2018 6:00 AM RIVET HAMMER MACHINE OPERATOR) Only the most recent of 3 results within the time period is included. Urine culture isolate Escherichia coli [facility] DEPARTMENT OF >10-5 cfu/ml PATHOLOGY AND The performance GENOMIC MEDICINE characteristics of this assay on this isolate were validated by the Microbiology Laboratory at [facility].This source has not been approved by the U.S. Food and Drug Administration.The results are not intended to be used as the sole means for clinical diagnosis or patient management.The Microbiology Laboratory is authorized under the clinical Laboratory Improvement Amendments of 1988 (CLIA-88) to perform high complexity testing. This isolate is a promos executive producer of ESBL (extended spectrum beta lactamase).This [...] coli Performing Organization Address City/State/Zipcode Phone Number [facility] DEPARTMENT OF [address] [place] [address] PATHOLOGY AND GENOMIC MEDICINE * CBC with platelet and differential (03/01/2018 1:33 AM CDT) Only the most recent of 5 results within the time period is included. WBC 5.91 4.50 - 11.00 k/uL [facility] DEPARTMENT OF PATHOLOGY AND GENOMIC MEDICINE RBC 5.11 4.20 - 5.50 m/uL [facility] DEPARTMENT OF PATHOLOGY AND GENOMIC MEDICINE HGB 14.6 12.0 - 16.0 g/dL [facility] DEPARTMENT OF PATHOLOGY AND GENOMIC MEDICINE HCT 43.6 37.0 - 47.0 % [facility] DEPARTMENT OF PATHOLOGY AND GENOMIC MEDICINE MCV 85.3 82.0 - 100.0 fL [facility] DEPARTMENT OF PATHOLOGY AND GENOMIC MEDICINE MCH 28.6 27.0 - 34.0 pg [facility] DEPARTMENT OF PATHOLOGY AND GENOMIC MEDICINE MCHC 33.5 31.0 - 37.0 g/dL [facility] DEPARTMENT OF PATHOLOGY AND GENOMIC MEDICINE RDW - SD 38.5 37.0 - 55.0 fL [facility] DEPARTMENT OF PATHOLOGY AND GENOMIC MEDICINE MPV 10.8 8.8 - 13.2 fL [facility] DEPARTMENT OF PATHOLOGY AND GENOMIC MEDICINE Platelet count 162 150 - 400 k/uL [facility] DEPARTMENT OF PATHOLOGY AND GENOMIC MEDICINE Nucleated RBC 0.00 /100 WBC [facility] DEPARTMENT OF PATHOLOGY AND GENOMIC MEDICINE Neutrophils 72.1 (H) 39.0 - 69.0 % [facility] DEPARTMENT OF PATHOLOGY AND GENOMIC MEDICINE Lymphocytes 20.0 (L) 25.0 - 45.0 % [facility] DEPARTMENT OF PATHOLOGY AND GENOMIC MEDICINE Monocytes 7.1 0.0 - 10.0 % [facility] DEPARTMENT OF PATHOLOGY AND GENOMIC MEDICINE Eosinophils 0.0 0.0 - 5.0 % [facility] DEPARTMENT OF PATHOLOGY AND GENOMIC MEDICINE Basophils 0.5 0.0 - 1.0 % [facility] DEPARTMENT OF PATHOLOGY AND GENOMIC MEDICINE Specimen Blood Performing Organization Address [facility] Phone Number [address] [place] [address] PATHOLOGY AND GENOMIC [facility] * Thyroid stimulating hormone (03/01/2018 1:33 AM CDT) TSH 4.26 (H) 0.27 - 4.20 uIU/mL [facility] PATHOLOGY AND GENOMIC MEDICINE Specimen Plasma specimen Performing Organization Address [facility] Phone Number [address] [place] [address] PATHOLOGY [facility] * Hemoglobin A1c (03/01/2018 1:33 AM CDT) Hemoglobin A1C 8.9 (H) 4.0 - 6.0 % [facility] DEPARTMENT OF Comment: PATHOLOGY AND GENOMIC MEDICINE Less than 6% - Goal of therapy for Type II Diabetes Less than 7%-Goal of therapy for Type I Diabetes Less than 8%-Accepta ble control for Type I or Type II Diabetes Greater than 8%-Unacceptabl e control; action indicated. ([id number]) Specimen Blood Performing Organization Address [facility] Phone Number [address], [place] [address] PATHOLOGY AND [employer] [facility] * Alcohol level, blood (03/01/2018 1:33 AM CDT) Alcohol None Detected mg/dL [facility] DEPARTMENT OF Comment: PATHOLOGY AND Normal GENOMIC MEDICINE None Detected Legal Intoxication in [place]80 mg/dL (0.08%) - Whole Blood Toxic Concentration 200 mg/dL (0.2%) Potentially Fatal3 50 - 500 mg/dL (0.35 - 0.5%) Alcohol percent None Detected % [facility] DEPARTMENT OF PATHOLOGY AND GENOMIC MEDICINE Specimen Plasma specimen Performing Organization Address [facility] Phone Number [address] [place] [address] PATHOLOGY AND GENOMIC MEDICINE * Acetaminophen level (03/01/2018 1:33 AM CDT) Acetaminophen level <15.0 10.0 - 30.0 ug/mL [facility] DEPARTMENT OF Comment: PATHOLOGY AND Therapeutic GENOMIC MEDICINE 10-30 ug/mL Possible Toxicity 150-200 ug/mL Probable Toxicity >200 ug/mL Specimen Plasma specimen Performing Organization Address [facility] Phone Number [address] [place] [address] PATHOLOGY AND GENOMIC MEDICINE * Salicylate level (03/01/2018 1:33 AM CDT) Salicylate <0.3 (L) 3.0 - 30.0 mg/dL [facility] DEPARTMENT OF PATHOLOGY AND GENOMIC MEDICINE Specimen Plasma specimen Performing Organization Address [facility] Phone Number [address] [place] [address] PATHOLOGY AND GENOMIC MEDICINE * ECG ED [...] ED Physician in the absence of a registered dental assistant: yes Interpretation: Interpretation: abnormal Rate: ECG rate:101 [...] [facility] Atrial rate 101 [facility] NM interval 198 [facility] QRSD interval 98 [facility] QT interval 368 [facility] QTC interval 477 [facility] P axis 1 63 [facility] QRS axis 1 52 [facility] T wave axis 62 [facility] EKG impression Sinus tachycardia-Possible [facility] MUSE Left atrial enlargement-Borderline ECG-In automated comparison with ECG of 17-JAN-2018 04:22,-No significant change was found- Performing Organization Address City/[facility] Phone Number [facility] MUSE [address] [place] [address] * T4, free (03/01/2018 1:00 AM CDT) T4, free 0.78 (L) 0.90 - 1.70 ng/dL [facility] DEPARTMENT OF PATHOLOGY AND GENOMIC MEDICINE Specimen Plasma specimen Performing Organization Address [facility] Phone Number [address] [place] [address] PATHOLOGY AND GENOMIC MEDICINE * Troponin (01/17/2018 12:05 PM CDT) Only the most recent of 4 results within the time period is included. Troponin <0.300 0.000 - 0.300 ng/mL [facility] [facility] DEPARTMENT OF Comment: PATHOLOGY AND 0.30 - 1.49 GENOMIC MEDICINE ng/mlMay indicate increased risk of acute coronary syndrome. >=1.5 ng/ml Consistent with acute myocardial infarction. The diagnostic value of a single normal or non-diagnostic result is questionable.Serial samples at 2-6 hour intervals are required to rule out acute myocardial injury. Specimen Plasma specimen Performing Organization Address [facility] Phone Number [address] [place] [address] PATHOLOGY AND [employer] MEDICINE * Comprehensive metabolic panel (01/17/2018 4:10 AM CDT) Only the most recent of 3 results within the time period is included. Sodium 140 135 - 148 mEq/L [facility] DEPARTMENT OF PATHOLOGY AND GENOMIC MEDICINE Potassium 3.7 3.5 - 5.0 mEq/L [facility] DEPARTMENT OF PATHOLOGY AND GENOMIC MEDICINE Chloride 100 98 - 112 mEq/L [facility] DEPARTMENT OF PATHOLOGY AND GENOMIC MEDICINE CO2 31 24 - 31 mEq/L [facility] DEPARTMENT OF PATHOLOGY AND GENOMIC MEDICINE Anion gap 9@ANIO 7 - 15 mEq/L [facility] DEPARTMENT OF PATHOLOGY AND GENOMIC MEDICINE BUN 18 6 - 20 mg/dL [facility] DEPARTMENT OF PATHOLOGY AND GENOMIC MEDICINE Creatinine 0.80 0.50 - 0.90 mg/dL [facility] DEPARTMENT OF PATHOLOGY AND GENOMIC MEDICINE Glucose 228 (H) 65 - 99 mg/dL [facility] DEPARTMENT OF PATHOLOGY AND GENOMIC MEDICINE Calcium 9.4 8.3 - 10.2 mg/dL [facility] DEPARTMENT OF PATHOLOGY AND GENOMIC MEDICINE Protein 6.1 (L) 6.3 - 8.3 g/dL [facility] DEPARTMENT OF Comment: PATHOLOGY AND GENOMIC MEDICINE 4.6-7.0 g/dL 1 week 4.4-7.6 g/dL 7 months-1year 5.1-7.3 g/dL 1-2 years5.6-7 .5 g/dL >3 years6.0-8 .0 g/dL 18-150 6.3-8.3 g/dL Albumin 3.9 3.5 - 5.0 g/dL [facility] DEPARTMENT OF PATHOLOGY AND GENOMIC MEDICINE A/G ratio 1.8 0.7 - 3.8 [facility] DEPARTMENT OF PATHOLOGY AND GENOMIC MEDICINE Alkaline phosphatase 158 (H) 35 - 104 U/L [facility] DEPARTMENT OF PATHOLOGY AND GENOMIC MEDICINE AST 36 (H) 10 - 35 U/L [facility] DEPARTMENT OF PATHOLOGY AND GENOMIC MEDICINE ALT 35 5 - 50 U/L [facility] DEPARTMENT OF PATHOLOGY AND GENOMIC MEDICINE Total bilirubin 0.2 0.0 - 1.2 mg/dL [facility] DEPARTMENT OF PATHOLOGY AND GENOMIC MEDICINE Specimen Plasma specimen Performing Organization Address City/State/Zipcode Phone Number [facility] [address] [place] [address] PATHOLOGY AND GENOMIC MEDICINE * Prolactin level (01/17/2018 1:50 AM CDT) Prolactin 18 5 - 23 ng/mL [facility] DEPARTMENT OF PATHOLOGY AND GENOMIC MEDICINE Specimen Plasma specimen Performing Organization Address City/State/Zipcode Phone Number [facility] DEPARTMENT OF [address] [place] [address] PATHOLOGY AND GENOMIC MEDICINE * XR Chest 1 Vw Portable (01/17/2018 12:31 AM CDT) Narrative Performed At EXAMINATION: XR CHEST 1 VW PORTABLE [facility] CLINICAL HISTORY: fall COMPARISON:07/05/2017 chest x-ray. IMPRESSION: The lungs are clear. No pleural effusion or pneumothorax. The cardiomediastinal silhouette is normal. Left chest cardiac device. No acute osseous abnormalities. [facility]-[id number] Procedure Note Interface, Radiology Results Incoming - 01/17/2018 12:37 AM CDT EXAMINATION: XR CHEST 1 VW PORTABLE CLINICAL HISTORY: fall COMPARISON: 07/05/2017 chest x-ray. IMPRESSION: The lungs are clear. No pleural effusion or pneumothorax. The cardiomediastinal silhouette is normal. Left chest cardiac device. No acute osseous abnormalities. [facility]-[id number] Performing Organization Address [facility] Phone Number [facility] [address] [place] [address] * XR Shoulder 2+ Vw Left (01/16/2018 11:17 PM CDT) Narrative Performed At EXAMINATION:XR SHOULDER 2VW LEFT [facility] CLINICAL HISTORY:FALL COMPARISON:None. IMPRESSION: No evidence of acute left shoulder fracture or dislocation. Soft tissues are unremarkable. Medical nerve stimulator is partially visualized. [facility]-[id number] Procedure Note Interface, Radiology Results Incoming - 01/16/2018 11:22 PM CDT EXAMINATION: XR SHOULDER 2 VW LEFT CLINICAL HISTORY: FALL COMPARISON: None. IMPRESSION: No evidence of acute left shoulder fracture or dislocation. Soft tissues are unremarkable. Medical nerve stimulator is partially visualized. [facility]-[id number] Performing Organization Address [facility] Phone Number [facility] [address] [place] [address] * XR Ankle 3+ Vw Left (01/16/2018 [...] of the ankle. There are calcaneal enthesophytes. [facility]-[id number] Procedure Note Interface, Radiology Results Incoming - [...] of the ankle. There are calcaneal enthesophytes. [facility]-[id number] Performing Organization Address City/State/Zipcode Phone Number [facility] [address] [place] [address] * SPLINT APPLICATION (01/16/2018 11:14 PM CDT) Narrative Performed At LEONIDAS Orozco 01/17/20184:40 AM Splint Application Performed by: ULI ORTEGA Authorized by: CHACHA MALONE Consent: Consent obtained:Verbal Consent given by:Patient Risks discussed:Discoloration, numbness, pain and swelling Alternatives discussed:Referral, observation, alternative treatment, delayed treatment and no treatment Pre-procedure details: Sensation:Normal Skin color:[place] Procedure details: Laterality:Left Location:Ankle Ankle:L ankle Splint type:Short leg Supplies:Cotton padding, elastic bandage and Ortho-Glass Post-procedure details: Pain:Improved Sensation:Normal Skin color:[place] Patient tolerance of procedure:Tolerated well, no immediate [...] acute osseous abnormality of the cervical spine. [facility]-[id number] Procedure Note Hm Interface, Radiology Results Incoming [...] acute osseous abnormality of the cervical spine. [facility]-[id number] Performing Organization Address City/State/Zipcode Phone Number [employer] [address] [place] [address] * CT Head Wo Contrast (01/16/2018 11:02 PM CDT) Only the most recent of 2 results within the time period is included. Narrative Performed At EXAMINATION: CT HEAD WO CONTRAST [facility] CLINICAL HISTORY: FALL COMPARISON:11/19/[address] TECHNIQUE: [...] normal. IMPRESSION: No acute intracranial abnormality identified. [facility]-[id number] Procedure Note Hm Interface, Radiology Results Incoming - 01/16/2018 11:10 [...] normal. IMPRESSION: No acute intracranial abnormality identified. [facility]-[id number] Performing Organization Address [facility] Phone Number [facility] [address] [place] [address] * Partial thromboplastin time, activated (01/16/2018 10:45 PM CDT) PTT 27.1 23.0 - 36.0 sec [facility] DEPARTMENT OF Comment: PATHOLOGY AND PTT therapeutic range for [facility] unfractionated heparin is 61.0-112.0 seconds which corresponds to Anti-Xa 0.3-0.7 U/ml. Specimen Blood Performing Organization Address [facility] Number [address] [place] [address] PATHOLOGY AND [facility] MEDICINE * Prothrombin time with INR (01/16/2018 10:45 PM CDT) Prothrombin time 13.9 12.0 - 15.0 sec [facility] DEPARTMENT OF PATHOLOGY AND [facility] MEDICINE INR 1.1 [facility] DEPARTMENT OF Comment: PATHOLOGY AND The International Normalized [facility] Ratio (INR) is a therapeutic monitoring tool for patients who are stable on oral anticoagulant therapy. An INR of 2.0-3.0 is suggested for deep vein thrombosis/pulmonary embolism. Specimen Blood Performing Organization Address [facility] Phone Number [address] [place] [address] PATHOLOGY AND [facility] MEDICINE * hCG qualitative, serum screen (01/16/2018 10:45 PM CDT) hCG qualitative, serum Negative [facility] DEPARTMENT OF PATHOLOGY AND [facility] MEDICINE Specimen Blood Performing Organization Address [facility] Number [address] [place] [address] PATHOLOGY AND [facility] MEDICINE * Estimated GFR (12/08/2017 5:45 PM CDT) Only the most recent of 2 results within the time period is included. GFR Non Af Amer 77 mL/min/1.73 m2 [facility] DEPARTMENT OF PATHOLOGY AND GENOMIC MEDICINE GFR Af Amer >90 mL/min/1.73 m2 [facility] DEPARTMENT OF Comment: PATHOLOGY AND Chronic kidney [...] Americans. Specimen Plasma specimen Performing Organization Address [facility]/Zipcode Phone Number [address] [place] [address] PATHOLOGY AND GENOMIC [facility] * Lipase level (12/08/2017 5:45 PM CDT) Lipase 63 (H) 13 - 60 U/L [facility] PATHOLOGY [facility] GENOMIC [facility] Specimen Plasma specimen Performing Organization Address City/[facility] Phone Number [address] [place] [address] PATHOLOGY [facility] * Hepatic function panel (12/08/2017 5:45 PM CDT) Albumin 4.3 3.5 - 5.0 g/dL [facility] DEPARTMENT OF PATHOLOGY AND GENOMIC MEDICINE Total bilirubin 0.2 0.0 - 1.2 mg/dL [facility] DEPARTMENT OF PATHOLOGY AND GENOMIC MEDICINE Bilirubin direct <0.1 0.0 - 0.3 mg/dL [facility] DEPARTMENT OF PATHOLOGY AND GENOMIC MEDICINE Alkaline phosphatase 115 (H) 35 - 104 U/L [facility] DEPARTMENT OF PATHOLOGY AND GENOMIC MEDICINE Protein 6.9 6.3 - 8.3 g/dL [facility] DEPARTMENT OF Comment: PATHOLOGY AND [place] GENOMIC MEDICINE 4.6-7.0 g/dL 1 week 4.4-7.6 g/dL 7 months-1year 5.1-7.3 g/dL 1-2 years5.6-7 .5 g/dL >3 years6.0-8 .0 g/dL 18-150 6.3-8.3 g/dL ALT 12 5 - 50 U/L [facility] DEPARTMENT OF PATHOLOGY AND GENOMIC MEDICINE AST 13 10 - 35 U/L [facility] DEPARTMENT OF PATHOLOGY AND GENOMIC MEDICINE Specimen Plasma specimen Performing Organization Address City/State/Zipcode Phone Number [facility] [place] [address] [place] [address] PATHOLOGY AND GENOMIC MEDICINE * CT Renal [...] throughout the colon, correlate for underlying constipation. [id number] Procedure Note Hm Interface, Radiology Results Incoming [...] throughout the colon, correlate for underlying constipation. [id number] Performing Organization Address [facility] Phone Number [facility] [address] [place] [address] * XR Knee 4+ Vw Left (11/19/2017 6:15 PM CDT) Narrative Performed At EXAMINATION:XR KNEE 4VW LEFT [facility] CLINICAL HISTORY:Knee paininitial exam COMPARISON:None. IMPRESSION: There is no evidence of left knee fracture, dislocation, or joint effusion. Bone mineralization is normal. Minimal osteophytic change about the medial and lateral joint lines [id number] Procedure Note Hm Interface, Radiology Results Incoming - 11/19/2017 6:20 PM CDT EXAMINATION: XR KNEE 4 VW LEFT CLINICAL HISTORY: Knee pain initial exam COMPARISON: None. IMPRESSION: There is no evidence of left knee fracture, dislocation, or joint effusion. Bone mineralization is normal. Minimal osteophytic change about the medial and lateral joint lines [id number] Performing Organization Address [facility] Phone Number [facility] [address] [place] [address] after 07/17/2017 Insurance Payer Benefit Subscriber ID Type Phone Address Plan / Group MEDICARE MEDICARE xxxxxxxxxx Medicare [place] B MEDICAID MEDICAID xxxxxxxxx Medicaid Advance Directives Patient has advance care planning documents, and code status on file. For more i nformation, please contact: [facility] [address] [place] [address] Date Inactivated Comments Code Status Date Activated 03/29/2017 4:04 PM Full Code 03/26/2017 10:10 PM Code Status decision reached by: Patient
--- OUTSIDE RECORDS SUMMARY | 2018-07-18 08:40 | XMS REPORT | Continuity of Care Document ---
Author Author Jacinto bergman Organization Interface Address Unknown Phone Unavailable Problems Problem Status Onset Date Classification Date Reported Comments Source PARTIAL COMPLEX SEIZURE DISORDER Active 10/11/2016 [facility] EMU PHASE 1---SEIZURES Active 10/22/2013 [facility] NEUROLOGICAL AND BODY PAIN Active 01/28/2013 [facility] SEIZURES Active 03/21/2012 [facility] INCREASED SEIZURE FREQUENCY UTI POORLY C Active 03/21/2012 [facility] V76.12 - SCREEN MAMMOGRA V86.0 - ESTROGEN [employer] Active 11/14/2011 KEISHA Bergman SEIZURE Active 06/15/2011 [facility] SIZURES Active 06/13/2011 [facility] STATUS EPILEPTICUS Active 05/24/2011 [facility] SHAKY, WEAK, OFF BALANCE Active 05/24/2011 [facility] EMU Active 05/08/2011 [facility] EMU. Active 05/08/2011 [facility] SEIZURES, ICD-9# 345.41, CPT# 97022; 39305; 36514 Active 04/18/2011 [facility] 345.41 Active 04/02/2011 [facility] Biliary dyskinesia<sup>1, 2</sup> Active 01/16/2011 Problem 10/21/2016 Data migrated from [facility] on 09/26/14. [facility] 575.8 / CPT 14232 Active 01/16/2011 [facility] Inactive Problem [facility]/05[facility]2013 [facility] Active Problem 02/05/2013 [facility] Anemia Resolved Problem 02/05/2013 [facility] DM - Diabetes mellitus Resolved Problem 02/05/2013 [facility] Epilepsy Resolved Problem 02/05/2013 [facility] Headache Resolved Problem 02/05/2013 [facility] Hyperglycemia Active Problem 02/05/2013 [facility] Hypothyroidism Resolved Problem 02/05/2013 [facility] Seizure after head injury Resolved Problem 02/05/2013 [facility] Hypothyroidism, unspecified Active Problem 07/09/2018 [facility] Schizophrenia, unspecified Active Problem 07/09/2018 [facility] Chest pain on breathing Active Problem 07/09/2018 [facility] Type 2 diabetes mellitus with hyperglycemia Active Problem 07/09/2018 [facility] Diabetes mellitus due to underlying condition with diabetic neuropathy, unspecified Active Problem 07/09/2018 [facility] Left upper quadrant pain Active Problem 07/09/2018 [facility] Low back pain Active Problem 07/09/2018 [facility] Type 2 diabetes mellitus without complications Active Problem 07/09/2018 [facility] Urinary tract infection, site not specified Active Problem 07/09/2018 [facility] Unspecified convulsions Active Problem 07/09/2018 [facility] Extended spectrum beta lactamase resistance Active Problem 07/09/2018 [facility] Dizziness and giddiness Active Problem 07/09/2018 [facility] Essential hypertension Active Problem 07/09/2018 [facility] Type 2 diabetes mellitus with diabetic neuropathy, unspecified Active Problem 07/09/2018 [facility] Chronic pain syndrome Active Problem 07/09/2018 [facility] Type 2 diabetes mellitus with other diabetic neurological complication Active Problem 07/09/2018 [facility] Anemia Resolved Problem 10/21/2016 [facility] Diabetes mellitus Resolved Problem 10/21/2016 [facility] DM - Diabetes mellitus Resolved Problem 10/21/2016 [facility] Epilepsy Resolved Problem 10/21/2016 [facility] Headache Resolved Problem 10/21/2016 [facility] Hyperglycemia Active Problem 10/21/2016 [facility] Hypothyroidism Resolved Problem 10/21/2016 [facility] Migraines Resolved Problem 10/21/2016 [facility] Seizure after head injury Resolved Problem 10/21/2016 [facility] Seizure precautions Active Problem 10/21/2016 [facility] Seizures Resolved Problem 10/21/2016 [facility] DIS OF GALLBLADDER NEC Active [facility] EPILEPSY NOS-NOT INTRACT Active [facility] PSYMOTR EPIL W INTR EPIL Active [facility] CONVULSIONS NEC Active [facility] FEBRILE CONVULSIONS NOS Active [facility] URIN TRACT INFECTION NOS Active [facility] EPILEP NEC W/O INTR EPIL Active [facility] Medications Medication Details Route Status Patient Instructions Ordering Provider Order Date Source Victoza 1.2 mg Subcutaneous Active 18 MG/3ML Subcutaneous Once a day Be 07/11/2017 [facility] Cymbalta 1 capsule Orally Active 60 MG Orally twice a day (bid) [facility] 05/02/2017 [facility] Gabapentin 1 tablet Orally Active 600 MG Orally four times a day [facility] 05/02/2017 [facility] Tramadol HCl 1 tablet as needed Orally Active 50 mg Orally every 6 hrs Be 05/02/2017 [facility] meloxicam 15 mg, 2 tab, Route: PO, Drug form: TAB, Daily, Dosing Weight 98.182, kg, Start date: 10/19/16 9:00:00 CDT, Duration: 30 day, Stop date: 11/17/16 9:00:00 CDTNotes: (Same as: Mobic) No Longer Active 10/19/2016 [facility] Vitamin D3 2000 intl units oral tablet 2,000 IntlUnit, 2 tab, Route: PO, Drug form: TAB, Daily, Dosing Weight 98.182, kg, Start date: 10/19/16 9:00:00 CDT, Duration: 30 day, Stop date: 11/17/16 9:00:00 CDTNotes: Same as : Vitamin D3 No Longer Active 10/19/2016 [facility] pantoprazole 40 mg, 1 tab, Route: PO, Drug form: ECTAB, Daily, Dosing Weight 98.182, kg, Start date: 10/19/16 9:00:00 CDT, Duration: 30 day, Stop date: 11/17/16 9:00:00 CDTNotes: Tablet should not be chewed or cr ushed. (Same as: Protonix) No Longer Active 10/19/2016 [facility] Vancomycin 1,500 mg, Route: IVPB, Drug form: INJ, Q12H, Dosing Weight 98.182, kg, Start date: 10/18/16 21:00:00 CDT, Duration: 24 hr, Stop date: 10/19/16 9:00:00 CDT, ABX Indication: Surgical Prophylaxis Inactive 10/19/2016 [facility] Propranolol 20 mg, Route: PO, Drug form: TAB, BID, Dosing Weight 98.182, kg, Start date: 10/18/16 17:00:00 CDT, Duration: 30 day, Stop date: 11/17/16 9:00:00 CDT Inactive 10/18/2016 [facility] Vimpat 200 mg, Route: PO, Drug form: TAB, BID, Dosing Weight 98.182, kg, Start date: 10/18/16 17:00:00 CDT, Duration: 30 day, Stop date: 11/17/16 9:00:00 CDT Inactive 10/18/2016 [facility] Fludrocortisone 0.1 mg, 1 tab, Route: PO, Drug form: TAB, BID, Dosing Weight 98.182, kg, Start date: 10/18/16 17:00:00 CDT, Duration: 30 day, Stop date: 11/17/16 9:00:00 CDTNotes: (Same as: Florinef Acetate) Give w ith food. Inactive 10/18/2016 [facility] duloxetine 120 mg, Route: PO, Drug form: DRC, QPM, Dosing Weight 98.182, kg, Start date: 10/18/16 17:00:00 CDT, Duration: 30 day, Stop date: 11/16/16 17:00:00 CDT Inactive 10/18/2016 [facility] Onfi 10 mg, Route: PO, Drug form: TAB, BID, Dosing Weight 98.182, kg, Start date: 10/18/16 17:00:00 CDT, Duration: 30 day, Stop date: 11/17/16 9:00:00 CDT Inactive 10/18/2016 [facility] Cefazolin 1 gm, Route: IVPB, Drug form: INJ, Q8H, Dosing Weight 98.182, kg, Start date: 10/18/16 16:00:00 CDT, Duration: 1 doses or times, Stop date: 10/18/16 16:00:00 CDT, ABX Indication: Surgical Prophylaxis Inactive 10/18/2016 [facility] Zofran 4 mg, 2 mL, Route: IV, Drug form: INJ, Q8H, Dosing Weight 98.182, kg, PRN Nausea, Start date: 10/18/16 10:08:00 CDT, Duration: 30 day, Stop date: 11/17/16 10:07:00 CDTNotes: (Same as: Zofran) MEDICATION WASTE Product Size: 4 mg Product Wasted: ___ mg Inactive 10/18/2016 [facility] Acetaminophen 325 MG / Hydrocodone Bitartrate 10 MG Oral Tablet [Brandon 10/325] 1 tab, Route: PO, Drug Form: TAB, Dosing Weight 98.182, kg, Q4H, PRN Pain Score 4-6, Start date: 10/18/16 10:08:00 CDT, Duration: 30 day, Stop date: 11/17/16 10:07:00 CDTNotes: Do not exceed 4gm/day of acetaminophen. (Same as: Brandon 325/10) Inactive 10/18/2016 [facility] 1/2NS + KCL 20mEq/L 1000ml (Premix) 1,000 mL 1,000 mL, Rate: 75 ml/hr, Infuse over: 13.3 hr, Route: IV, Dosing Weight 98.182 kg, Total Volume: 1,000, Start date: 10/18/16 10:08:00 CDT, Duration: 30 day, Stop date: 11/17/16 10:07:00 CDTNotes: PREMIX IV - Do Not Alter WASTE: F/P - Sink; E - Municipal Trash Bin Inactive 10/18/2016 [facility] Sumatriptan 6 mg, 0.5 mL, Route: SUB-Q, Drug form: INJ, ONCE, Dosing Weight 98.182, kg, PRN Headache 1-5, Start date: 10/18/16 10:04:00 CDT Inactive 10/18/2016 [facility] Meclizine 25 mg, 1 tab, Route: PO, Drug form: TAB, TID, Dosing Weight 98.182, kg, PRN Dizziness, Start date: 10/18/16 10:03:00 CDT, Duration: 30 day, Stop date: 11/17/16 10:02:00 CDTNotes: (Same as: Antivert) Inactive 10/18/2016 [facility] Insulin, Aspart, Human 10 unit, 0.1 mL, Route: SUB-Q, Drug form: SOLN, Sliding Scale, Dosing Weight 98.182, kg, PRN Blood Glucose Results, Start date: 10/18/16 9:52:00 CDT, Duration: 30 day, Stop date: 11/17/16 9:51:00 CDTNotes: Roll in palms of hands gently; Do not shake vigorously. (Same as: NovoLOG) "single patient use only" WASTE: F/P - Black; E - Municipal Trash Bin Stable for 28 days at room temperature. Expires in days from Date Inactive 10/18/2016 [facility] Dexamethasone 4 mg, 1 mL, Route: IVP, Drug form: INJ, ONCE, Dosing Weight 98.182, kg, PRN Nausea & Vomiting, Start date: 10/18/16 9:52:00 CDTNotes: Concentration: 4mg/ml Inactive 10/18/2016 [facility] Ondansetron 4 mg, Route: IVP, ONCE, Dosing Weight 98.182, kg, PRN Nausea & Vomiting, Start date: 10/18/16 9:52:00 CDT Inactive 10/18/2016 [facility] Fentanyl 25 microgram, 0.5 mL, Route: IVP, Drug form: INJ, Q5Min, Dosing Weight 98.182, kg, PRN Pain Score 4-6, Priority: Routine, Start date: 10/18/16 9:52:00 CDT, Duration: 4 doses or times, Stop date: Limited # of timesNotes: (Same as: Sublimaze) Preservative free. Inactive 10/18/2016 [facility] Naloxone 0.4 mg, 1 mL, Route: IVP, Drug form: INJ, Q2MIN, Dosing Weight 98.182, kg, PRN Narcotic Reversal, Start date: 10/18/16 9:52:00 CDT, Duration: 8 doses or times, Stop date: Limited # of timesNotes: Same as Narcan Inactive 10/18/2016 [facility] Flumazenil 0.2 mg, 2 mL, Route: IVP, Drug form: INJ, PRN, Dosing Weight 98.182, kg, PRN Benzodiazepine Reversal, Initial dose, Start date: 10/18/16 9:52:00 CDT, Duration: 30 day, Stop date: 11/17/16 9:51:00 CDT Notes: (Same as: Romazicon) Inactive 10/18/2016 [facility] Meperidine 12.5 mg, 0.25 mL, Route: IVP, Drug form: INJ, Q30Min, Dosing Weight 98.182, kg, PRN Other -See Comment, For shivering, Start date: 10/18/16 9:52:00 CDT, Duration: 2 doses or times, Stop date: Limited # of timesNotes: (Same as: Demerol) "Use Precaution in Elderly, Seizure disorders, and Renal impairment" Inactive 10/18/2016 [facility] Acetaminophen 1,000 mg, Route: IVPB, Drug form: INJ, ONCE, Dosing Weight 98.182, kg, PRN Pain Score 1-3, Start date: 10/18/16 9:52:00 CDT, Duration: 1 doses or times, Stop date: Limited # of times Inactive 10/18/2016 [facility] Ketorolac 30 mg, 1 mL, Route: IVP, Drug form: INJ, ONCE, Dosing Weight 98.182, kg, Start date: 10/18/16 9:52:00 CDT, Duration: 1 doses or times, Stop date: 10/18/16 9:52:00 CDTNotes: (Same as:Toradol) IV bolus must be given >15 seconds. Give IM administration slowly and deeply into the muscle. Not for use > 4 days MEDICATION WASTE Product Size: 30 mg Product Wasted: ___ mg Inactive 10/18/2016 [facility] Labetalol 10 mg, 2 mL, Route: IVP, Drug form: INJ, Q5Min, Dosing Weight 98.182, kg, PRN Elevated BP, Start date: 10/18/16 9:52:00 CDT, Duration: 5 doses or times, Stop date: Limited # of timesNotes: (Same as: Eddie carlos Trandate) Push over 2 minutes Give bolus over 2-3 minutes. Inactive 10/18/2016 [facility] Hydralazine 10 mg, 0.5 mL, Route: IVP, Drug form: INJ, Q20Min, Dosing Weight 98.182, kg, PRN Elevated BP, Start date: 10/18/16 9:52:00 CDT, Duration: 2 doses or times, Stop date: Limited # of timesNotes: (Same as: Apresoline) Push over 5 minutes Inactive 10/18/2016 [facility] neostigmine (ANES) Route: IV, Drug form: INJ, ONCE, Stop date: 10/18/16 9:30:00 CDT Inactive 10/18/2016 [facility] glycopyrrolate (ANES) Route: IV, Drug form: INJ, ONCE, Stop date: 10/18/16 9:30:00 CDT Inactive 10/18/2016 [facility] ketOROLAC (ANES) IV, ONCE Inactive 10/18/2016 [facility] dexamethasone (ANES) Route: IV, Drug form: INJ, ONCE, Stop date: 10/18/16 8:54:00 CDT Inactive 10/18/2016 [facility] ondansetron (ANES) Route: IV, Drug form: INJ, ONCE, Stop date: 10/18/16 8:34:00 CDT Inactive 10/18/2016 [facility] rocuronium (ANES) Route: IV, Drug form: INJ, ONCE, Stop date: 10/18/16 8:29:00 CDT Inactive 10/18/2016 [facility] propofol (ANES) Route: IV, Drug form: INJ, ONCE, Stop date: 10/18/16 8:29:00 CDT Inactive 10/18/2016 [facility] fentaNYL (ANES) Route: IV, Drug form: INJ, ONCE, Stop date: 10/18/16 8:29:00 CDT Inactive 10/18/2016 [facility] midazolam (ANES) Route: IV, Drug form: SOLN, ONCE, Stop date: 10/18/16 8:29:00 CDT Inactive 10/18/2016 [facility] lidocaine (ANES) Route: IV, Drug form: INJ, ONCE, Stop date: 10/18/16 8:24:00 CDT Inactive 10/18/2016 [facility] LR 1000 mL INJ (ANES) Route: IV, Total Volume: 1,000, Start date: 10/18/16 7:32:00 CDT, Stop date: 10/18/16 8:32:00 CDT Inactive 10/18/2016 [facility] vancomycin (ANES) (ANES) Route: IV, Drug form: INJ, Start date: 10/18/16 7:30:00 CDT, Stop date: 10/18/16 8:30:00 CDT Inactive 10/18/2016 [facility] Victoza 0.6mg for the first week and then 1.2mg Subcutaneous Active 18 MG/3ML Subcutaneous Once a day Mily 10/17/2016 [facility] propranolol 20 mg oral tablet 20 mg=1 tab, PO, BID, 0 Refill(s) On Hold 10/11/2016 [facility] pantoprazole 40 mg oral enteric coated tablet 40 mg=1 tab, PO, Daily, 0 Refill(s) On Hold 10/11/2016 [facility] clobazam 10 MG Oral Tablet [Onfi] 10 mg=1 tab, PO, BID, 0 Refill(s) On Hold 10/11/2016 [facility] lacosamide 200 MG Oral Tablet [Vimpat] 200 mg=1 tab, PO, BID, # 30 day, 0 Refill(s) On Hold 10/11/2016 [facility] OneTouch Ultra Mini use as directed NA Active w/Device to check blood sugars Be 07/16/2016 [facility] OneTouch Ultra Mini use as directed NA Active w/Device to check blood sugars [facility] 07/16/2016 [facility] Tramadol 1 tablet orally Active 50 mg orally three times a day (tid) as needed (prn) [facility] 07/09/2016 [facility] Tramadol 1 tablet orally Active 50 mg orally three times a day (tid) as needed (prn) [facility] 07/09/2016 [facility] Januvia 1 tablet Orally Active 100 MG Orally Once a day [facility] 06/07/2016 [facility] Meloxicam take 1 tablet once a day orally Orally Active 15 MG Orally daily [facility] 05/07/2016 [facility] Tramadol HCl as directed Orally Active 50 MG Orally three times a day (tid) as needed (prn) [facility] 01/25/2016 [facility] Glucagon Emergency as directed Injection Active 1 MG Injection prn and repeat in 15 min if needed [facility] 12/20/2015 [facility] Tramadol HCl as directed Orally Active 50 mg Orally three times a day (tid) as needed (prn) [facility] 11/09/2015 [facility] One touch ultra test strips as directed verio Active . verio three times a day (tid) [facility] 11/04/2015 [facility] Tramadol HCl 1 tablet as needed Orally Active 50 mg Orally every 6 hrs [facility] 10/02/2015 [facility] Victoza 0.6mg for the first week and 1.2mg Subcutaneous Active 18 MG/3ML Subcutaneous Once a day [facility] 09/07/2015 [facility] Meloxicam take 1 tablet once a day orally Orally Active 15 MG Orally daily [facility] 09/03/2015 [facility] tresiba 60 units subcutaneous Active 100 units/mL subcutaneous daily [facility] 08/21/2015 [facility] Levaquin 1 tablet Orally Active 500 mg Orally Once a day [facility] 08/21/2015 [facility] tresiba 60 units subcutaneous Active 100 units/mL subcutaneous once a day [facility] 08/21/2015 [facility] Levaquin 1 tablet Orally Active 500 mg Orally Once a day [facility] 07/07/2015 [facility] Baclofen as directed Externally Active 2 % Externally Three times a day [facility] 03/22/2015 [facility] Humalog KwikPen 14 units (slidingscale) Subcutaneous Active 100 UNIT/ML Subcutaneous three times a day (tid) [facility] 03/09/2015 [facility] Levaquin 1 tablet Orally Active 500 mg Orally Once a day [facility] 02/24/2015 [facility] Levaquin 1 tablet Orally Active 500 mg Orally Once a day [facility] 02/24/2015 [facility] Gabapentin 1 capsule Orally Active 300 MG Orally Three times a day [facility] 02/01/2015 [facility] Hydrocortisone 1 application to affected area Externally Active 1 % Externally Twice a day [facility] 09/30/2014 [facility] Hydrocortisone 1 application to affected area Externally Active 1 % Externally Twice a day [facility] 09/30/2014 [facility] 3 ML Insulin Glargine 100 UNT/ML Prefilled Syringe [Lantus] 25 units, SUB-Q, BID, # 10 mL, 0 Refill(s), other Active 11/18/2013 [facility] zonisamide 100 mg oral capsule 400 mg=4 cap, PO, Bedtime, # 120 cap, 0 Refill(s), other Active 11/18/2013 [facility] insulin aspart 100 units/mL subcutaneous solution 10 unit=0.1 mL, SUB-Q, TID-Before Meals, # 10 mL, 0 Refill(s), other Active 11/18/2013 [facility] Insulin, Regular, Pork 4 unit, 0.04 mL, Route: SUB-Q, Drug form: SOLN, Bedtime, Dosing Weight 90, kg, PRN Blood Glucose Results, Start date: 11/18/13 1:04:00, Duration: 30 day, Stop date: 12/18/13 1:03:00Notes: (Same as: Humulin R) Roll in palms of hands gently; Do not shake vigorously. "single patient use only" (Restricted to patients requiring a dose > 60 units) Stable for 28 days at room temperature Expires in days from Date Inactive 11/18/2013 [facility] Dextrose 50% Syringe 25 gm, 50 mL, Route: IVP, Drug Form: INJ, Dosing Weight 90, kg, PRN, PRN Blood Glucose Results, Start date: 11/18/13 1:04:00, Duration: 30 day, Stop date: 12/18/13 1:03:00 Inactive 11/18/2013 [facility] Glucagon 1 mg, Route: IM, Drug form: PDR/INJ, PRN, Dosing Weight 90, kg, PRN Blood Glucose Results, Start date: 11/18/13 1:04:00, Duration: 30 day, Stop date: 12/18/13 1:03:00 Inactive 11/18/2013 [facility] NS 1,000 mL 1,000 mL, Rate: 125 ml/hr, Infuse over: 8 hr, Route: IV, Dosing Weight 90 kg, Total Volume: 1,000, Priority: STAT, Start date: 11/17/13 22:28:00, Duration: 30 day, Stop date: 12/17/13 22:27:00 No Longer Active 11/18/2013 [facility] Lantus 25 unit, 0.25 mL, Route: SUB-Q, Drug form: INJ, Q12H, Dosing Weight 90, kg, Start date: 11/17/13 21:00:00, Duration: 30 day, Stop date: 12/17/13 9:00:00Notes: Same as Lantus Solostar PEN "single patient use only" Stable for 28 days at room temperature. Expires in days from Date No Longer Active 11/18/2013 [facility] NovoLog 10 unit, 0.1 mL, Route: SUB-Q, Drug form: SOLN, TID-Before Meals, Dosing Weight 90, kg, Start date: 11/17/13 16:30:00, Duration: 30 day, Stop date: 12/17/13 11:30:00Notes: Roll in palms of hands gent ly; Do not shake vigorously. (Same as: NovoLOG) "single patient use only" Stable for 28 days at room temperature. Expires in days from Date No Longer Active 11/17/2013 [facility] Insulin, Aspart, Human 2 unit, 0.02 mL, Route: SUB-Q, Drug form: SOLN, TID-Before Meals, Dosing Weight 90, kg, PRN Blood Glucose Results, Start date: 11/17/13 15:54:00, Duration: 30 day, Stop date: 12/17/13 15:53:00Notes: Roll in palms of hands gently; Do not shake vigorously. (Same as: NovoLOG) "single patient use only" Stable for 28 days at room temperature. Expires in days from Date No Longer Active 11/17/2013 [facility] Glucagon 1 mg, Route: IM, Drug form: PDR/INJ, PRN, Dosing Weight 90, kg, PRN Blood Glucose Results, Start date: 11/17/13 14:08:00, Duration: 30 day, Stop date: 12/17/13 14:07:00 No Longer Active 11/17/2013 [facility] Dextrose 50% Syringe 25 gm, 50 mL, Route: IVP, Drug Form: INJ, Dosing Weight 90, kg, PRN, PRN Blood Glucose Results, Start date: 11/17/13 14:08:00, Duration: 30 day, Stop date: 12/17/13 14:07:00 No Longer Active 11/17/2013 [facility] meloxicam 15 mg, 1 tab, Route: PO, Drug form: TAB, Daily, Dosing Weight 90, kg, Start date: 11/16/13 9:00:00, Duration: 30 day, Stop date: 12/15/13 9:00:00, Patient's Own MedsNotes: (Same as: Mobic) No Longer Active 11/16/2013 [facility] Escitalopram 10 mg, 1 tab, Route: PO, Drug form: TAB, Daily, Dosing Weight 90, kg, Start date: 11/16/13 9:00:00, Duration: 30 day, Stop date: 12/15/13 9:00:00, Patient's Own MedsNotes: (Same as: Lexapro) No Longer Active 11/16/2013 [facility] gabapentin 800 mg tab gabapentin 800 mg tab, 800 mg, 1 tab, Drug form: MISC, Route: PO, Q8H, 11/16/13 8:00:00, Duration: 30 day, Stop date: 12/16/13 0:00:00 No Longer Active 11/16/2013 [facility] sumatriptan 100 mg tab sumatriptan 100 mg tab, 100 mg, 1 tab, Drug form: MISC, Route: PO, Daily, PRN Headache, 11/16/13 1:52:00, Duration: 30 day, Stop date: 12/16/13 1:51:00 No Longer Active 11/16/2013 [facility] zonisamide 400 mg, 4 cap, Route: PO, Drug form: CAP, Bedtime, Dosing Weight 90, kg, Start date: 11/15/13 21:00:00, Duration: 30 day, Stop date: 12/14/13 21:00:00, Patient's Own MedsNotes: Contraindicated in patients with hypersensitivity to sulfonamides. (Same As: Zonegran) No Longer Active 11/16/2013 [facility] Insulin Glargine 50 unit, 0.5 mL, Route: SUB-Q, Drug form: INJ, Bedtime, Dosing Weight 90, kg, Start date: 11/15/13 21:00:00, Duration: 30 day, Stop date: 12/14/13 21:00:00, Patient's Own MedsNotes: Same as Lantus Solostar PEN "single patient use only" Stable for 28 days at room temperature. Expires in days from Date No Longer Active 11/16/2013 [facility] Midodrine 2.5 mg, 1 tab, Route: PO, Drug form: TAB, BID, Dosing Weight 90, kg, Start date: 11/15/13 17:00:00, Duration: 30 day, Stop date: 12/15/13 9:00:00, Patient's Own MedsNotes: (Same as:Proamatine) No Longer Active 11/15/2013 [facility] Vimpat 300 mg, 3 tab, Route: PO, Drug form: TAB, BID, Dosing Weight 90, kg, Start date: 11/15/13 17:00:00, Duration: 30 day, Stop date: 12/15/13 9:00:00, Patient's Own MedsNotes: Same as: Vimpat No Longer Active 11/15/2013 [facility] Potiga Potiga, 200 mg, Route: PO, BID, 11/15/13 17:00:00, Duration: 30 day, Stop date: 12/15/13 9:00:00, Patient's Own Meds No Longer Active 11/15/2013 [facility] gabapentin 800 MG Oral Tablet 800 mg, 2 cap, Route: PO, Drug form: CAP, TID, Dosing Weight 90, kg, Start date: 11/15/13 17:00:00, Duration: 30 day, Stop date: 12/15/13 13:00:00, Patient's Own MedsNotes: (Same as: Neurontin) No Longer Active 11/15/2013 [facility] Fludrocortisone 0.1 mg, 1 tab, Route: PO, Drug form: TAB, BID, Dosing Weight 90, kg, Start date: 11/15/13 17:00:00, Duration: 30 day, Stop date: 12/15/13 9:00:00, Patient's Own MedsNotes: (Same as: Florinef Acetate) Give with food. No Longer Active 11/15/2013 [facility] duloxetine 120 mg, 2 cap, Route: PO, Drug form: DRC, QPM, Dosing Weight 90, kg, Start date: 11/15/13 17:00:00, Duration: 30 day, Stop date: 12/14/13 17:00:00, Patient's Own MedsNotes: (Same as: Cymbalta) (Do Not Crush) No Longer Active 11/15/2013 [facility] Propranolol 20 mg, 1 tab, Route: PO, Drug form: TAB, BID, Dosing Weight 90, kg, Start date: 11/15/13 17:00:00, Duration: 30 day, Stop date: 12/15/13 9:00:00, Patient's Own MedsNotes: Give with food. (Same as: In deral) No Longer Active 11/15/2013 [facility] NovoLOG FlexPen 13 unit, 0.13 mL, Route: SUB-Q, Drug form: SOLN, TID-Before Meals, Dosing Weight 90, kg, Start date: 11/15/13 16:30:00, Duration: 30 day, Stop date: 12/15/13 11:30:00, Patient's Own MedsNotes: Roll in palms of hands gently; Do not shake vigorously. (Same as: NovoLOG) "single patient use only" Stable for 28 days at room temperature. Expires in days from Date No Longer Active 11/15/2013 [facility] Sumatriptan 6 mg, 0.5 mL, Route: SUB-Q, Drug form: INJ, Daily, Dosing Weight 90, kg, PRN Headache, Start date: 11/15/13 15:36:00, Duration: 30 day, Stop date: 12/15/13 15:35:00, headcaheNotes: For SUBCUTANEOUS use only No Longer Active 11/15/2013 [facility] midodrine 2.5 mg oral tablet 2.5 mg=1 tab, PO, BID, # 180 tab, 0 Refill(s) Active 11/15/2013 [facility] DULoxetine 60 mg oral delayed release capsule 120 mg=2 cap, PO, QPM, # 30 cap, 0 Refill(s) Active 11/15/2013 [facility] propranolol 20 mg oral tablet 20 mg=1 tab, PO, BID, # 60 tab, 0 Refill(s) Active 11/15/2013 [facility] lacosamide 100 MG Oral Tablet [Vimpat] 300 mg=3 tab, PO, BID, 0 Refill(s) Active 11/15/2013 [facility] meloxicam 15 mg oral tablet 15 mg=1 tab, PO, Daily, # 30 tab, 0 Refill(s) Active 11/15/2013 [facility] 3 ML Insulin, Aspart, Human 100 UNT/ML Prefilled Syringe [NovoLog] 13 units, SUB-Q, TID-Before Meals, # 3 mL, 0 Refill(s) No Longer Active 11/15/2013 [facility] ezogabine 200 MG Oral Tablet [Potiga] 200 mg=1 tab, PO, BID, 0 Refill(s) Active 11/15/2013 [facility] gabapentin 800 MG Oral Tablet 800 mg=1 tab, PO, TID, # 90 tab, 0 Refill(s) Active 11/15/2013 [facility] escitalopram 10 mg oral tablet 10 mg=1 tab, PO, Daily, # 30 tab, 0 Refill(s) Active 11/15/2013 [facility] 3 ML Insulin Glargine 100 UNT/ML Prefilled Syringe [Lantus] 50 units, SUB-Q, Bedtime, # 10 ml, 0 Refill(s) No Longer Active 11/15/2013 [facility] SUMAtriptan 100 mg oral tablet 100 mg=1 tab, PO, Daily, for migraine headache, # 18 tab, 0 Refill(s) Active 11/15/2013 [facility] zonisamide 100 mg oral capsule 600 mg=6 cap, PO, Bedtime, # 60 cap, 0 Refill(s) No Longer Active 11/15/2013 [facility] SUMAtriptan 6 mg/0.5 mL subcutaneous solution 6 mg=0.5 ml, SUB-Q, Headache, per onset of headache- see rx instructions, # 1, 0 Refill(s)Special Instructions: per onset of headache- see rx instructions Active 11/15/2013 [facility] Blood Glucose Test as directed subcutaneously Active . subcutaneously three times a day (tid) 10/20/2013 [facility] Blood Glucose Test as directed subcutaneously Active . subcutaneously three times a day (tid) [facility] 10/20/2013 [facility] BD Pen Needle Ines U/F as directed subcutaneously Active 32G X 4 MM subcutaneously four times a day (qid) [facility] 08/09/2013 [facility] BD Pen Needle Ines U/F as directed subcutaneously Active 32G X 4 MM subcutaneously four times a day (qid) [facility] 08/09/2013 [facility] Zofran 4 mg oral tablet 4 mg, 1 tab, PO, Q8H, PRN, 24 tab, as needed for nausea/vomiting, Substitution Allowed PO Active [facility] 01/29/2013 [facility] phenytoin extended release 200 mg, 2 cap, Route: PO, Drug form: ERCAP, ONCE, Dosing Weight 84.545, kg, Start date: 01/29/13 5:52:00, Stop date: 01/29/13 5:52:00 PO No Longer Active [facility] 01/29/2013 [facility] Omnipaque 350mg/ml 85 mL, Route: IVP, Drug Form: SOLN, Dosing Weight 84.545, kg, ONCALL, STAT, Start date: 01/29/13 4:45:00, Duration: 1 doses or times, Dose=2.2ml/kg, Max [id number] -- "To be infused by Radiology Staff ONLY"Dose=2.2ml/kg, Max [id number] -- "To be infused by Radiology Staff ONLY" IVP No Longer Active [facility] 01/29/2013 [facility] Reglan 10 mg, 2 mL, Route: IVP, Drug form: INJ, ONCE, Dosing Weight 84.545, kg, Priority: STAT, Start date: 01/29/13 3:55:00, Stop date: 01/29/13 3:55:00 IVP No Longer Active [facility] 01/29/2013 [facility] Sodium Chloride 0.9% (Bolus) IV 1,000 mL 1,000 mL, Rate: 1,000 ml/hr, Infuse over: 1 hr, Route: IV, Dosing Weight 84.545 kg, Total Volume: 1,000, Priority: STAT, Start date: 01/29/13 3:42:00, Duration: 1 doses or times, Stop date: 01/29/13 4:41:00, Bolus DoseBolus Dose IV No Longer Active [facility] 01/29/2013 [facility] insulin aspart 5 unit, 0.05 mL, Route: SUB-Q, Drug form: SOLN, Before Dinner, Dosing Weight 77.273, kg, Start date: 03/24/12 16:30:00, Duration: 30 day, Stop date: 04/22/12 16:30:00 SUB-Q No Longer Active [facility] 03/24/2012 [facility] docusate sodium 100 mg oral capsule 100 mg, 1 cap, PO, BID, 20 cap, Substitution Allowed, CAP PO Active [facility] 03/24/2012 [facility] senna 8.6 mg oral tablet 17.2 mg, 2 tab, PO, Daily, 20 tab, Substitution Allowed, Maintenance, TAB PO Active [facility] 03/24/2012 [facility] phenytoin 100 mg oral capsule, extended release 300 mg, 3 cap, PO, Daily, 90 cap, Substitution Allowed, ERCAP PO Active [facility] 03/24/2012 [facility] Synthroid 100 mcg (0.1 mg) oral tablet 100 microgram, 1 tab, PO, Q630AM, 30 tab, Substitution Allowed, TAB PO Active [facility] 03/24/2012 [facility] Vimpat 100 mg oral tablet 300 mg, 3 tab, PO, BID, 180 tab, Substitution Allowed, TAB PO Active [facility] 03/24/2012 [facility] insulin aspart 100 units/mL subcutaneous solution 5 unit, SUB-Q, TID-Before Meals, 10 mL, Substitution Allowed, SOLN SUB-Q Active [facility] 03/24/2012 [facility] ferrous sulfate 325 mg oral enteric coated tablet 325 mg, 1 tab, PO, TID, 90 tab, Substitution Allowed, ECTAB PO Active [facility] 03/24/2012 [facility] Cymbalta 30 mg oral delayed release capsule 60 mg, 2 cap, PO, Daily, 60 cap, Substitution Allowed, DRC PO Active [facility] 03/24/2012 [facility] amitriptyline 25 mg oral tablet 25 mg, 1 tab, PO, BID, 60 tab, Substitution Allowed, TAB PO Active [facility] 03/24/2012 [facility] acetaminophen-hydrocodone 325 mg-5 mg oral tablet 1 tab, PO, Q4H, PRN, 30 tab, Pain Score 1-3, Substitution Allowed, Maintenance, TAB PO Active [facility] 03/24/2012 [facility] nitrofurantoin macrocrystals 100 mg oral capsule 100 mg, 1 cap, PO, BID, 10 cap, Substitution Allowed, CAP PO Active [facility] 03/24/2012 [facility] Lantus 100 units/mL subcutaneous solution 30 units, SUB- Q, Daily, 10 mL, Substitution Allowed, SOLN SUB-Q Active [facility] 03/24/2012 [facility] insulin aspart 5 unit, 0.05 mL, Route: SUB-Q, Drug form: SOLN, Before Lunch, Dosing Weight 77.273, kg, Start date: 03/24/12 11:30:00, Duration: 30 day, Stop date: 04/22/12 11:30:00 SUB-Q No Longer Active [facility] 03/24/2012 [facility] senna 17.2 mg, 2 tab, Route: PO, Drug Form: TAB, Dosing Weight 77.273, kg, Daily, Start date: 03/24/12 9:00:00, Duration: 30 day, Stop date: 04/22/12 9:00:00 PO No Longer Active [facility] 03/24/2012 [facility] ferrous sulfate 325 mg, 1 tab, Route: PO, Drug form: ECTAB, TID, Dosing Weight 77.273, kg, Start date: 03/24/12 9:00:00, Duration: 30 day, Stop date: 04/22/12 17:00:00 PO No Longer Active [facility] 03/24/2012 [facility] insulin aspart 5 unit, 0.05 mL, Route: SUB-Q, Drug form: SOLN, Before Breakfast, Dosing Weight 77.273, kg, Start date: 03/24/12 7:30:00, Duration: 30 day, Stop date: 04/22/12 7:30:00 SUB-Q No Longer Active [facility] 03/24/2012 [facility] Macrodantin 100 mg, 1 cap, Route: PO, Drug form: CAP, [id number], Start date: 03/23/12 20:00:00, Duration: 30 day, Stop date: 04/22/12 8:00:00 PO No Longer Active [facility] 03/24/2012 [facility] fosphenytoin + Sodium Chloride 0.9% IV 50 mL 500 mg, 10 mL, Route: IVPB, ONCE, Dosing Weight 77.273, kg, Start date: 03/23/12 8:54:00, Stop date: 03/23/12 8:54:00 IVPB No Longer Active [facility] 03/23/2012 [facility] magnesium oxide 800 mg, 2 tab, Route: PO, Drug form: TAB, ONCE, Dosing Weight 77.273, kg, Start date: 03/23/12 7:33:00, Stop date: 03/23/12 7:33:00 PO No Longer Active [facility] 03/23/2012 [facility] Synthroid 100 microgram, 1 tab, Route: PO, Drug form: TAB, Q630AM, Dosing Weight 77.273, kg, Start date: 03/23/12 6:30:00, Duration: 30 day, Stop date: 04/21/12 6:30:00 PO No Longer Active [facility] 03/23/2012 [facility] Ativan 2 mg, 1 mL, Route: IV, Drug form: INJ, ONCALL, Start date: 03/22/12 19:00:00, Duration: 1 doses or times, Stop date: 03/23/12 19:00:00 IV No Longer Active [facility] 03/23/2012 [facility] Ativan 2 mg, 1 mL, Route: IVP, Drug form: INJ, ONCE, Dosing Weight 77.273, kg, Priority: STAT, Start date: 03/22/12 18:28:00, Stop date: 03/22/12 18:28:00 IVP No Longer Active [facility] 03/23/2012 [facility] Ativan 2 mg, 1 mL, Route: IVPB, Drug form: INJ, ONCE, Dosing Weight 77.273, kg, Priority: STAT, Start date: 03/22/12 18:09:00, Stop date: 03/22/12 18:09:00 IVPB No Longer Active [facility] 03/23/2012 [facility] amitriptyline 25 mg, 1 tab, Route: PO, Drug form: TAB, BID, Dosing Weight 77.273, kg, Start date: 03/22/12 17:00:00, Duration: 30 day, Stop date: 04/21/12 9:00:00 PO No Longer Active [facility] 03/22/2012 [facility] Toradol 15 mg/mL injectable solution 15 mg, 1 mL, Route: IV, Drug form: INJ, Q6H, Dosing Weight 77.273, kg, PRN Pain, Start date: 03/22/12 10:52:00, Duration: 4 day, Stop date: 03/26/12 10:51:00 IV No Longer Active [facility] 03/22/2012 [facility] midodrine 5 mg, 1 tab, Route: PO, Drug form: TAB, TID, Dosing Weight 77.273, kg, Start date: 03/22/12 9:00:00, Duration: 30 day, Stop date: 04/20/12 17:00:00 PO No Longer Active [facility] 03/22/2012 [facility] Lantus 30 unit, 0.3 mL, Route: SUB-Q, Drug form: INJ, Daily, Dosing Weight 77.273, kg, Start date: 03/22/12 9:00:00, Duration: 30 day, Stop date: 04/20/12 9:00:00 SUB-Q No Longer Active [facility] 03/22/2012 [facility] fludrocortisone 0.1 mg, 1 tab, Route: PO, Drug form: TAB, BID, Dosing Weight 77.273, kg, Start date: 03/22/12 9:00:00, Duration: 30 day, Stop date: 04/20/12 17:00:00 PO No Longer Active [facility] 03/22/2012 [facility] Cipro 500 mg, 1 tab, Route: PO, Drug form: TAB, Q12H, Dosing Weight 77.273, kg, Start date: 03/22/12 9:00:00, Duration: 30 day, Stop date: 04/20/12 21:00:00 PO No Longer Active [facility] 03/22/2012 [facility] phenytoin 300 mg, 3 cap, Route: PO, Drug form: ERCAP, Daily, Dosing Weight 77.273, kg, Start date: 03/22/12 9:00:00, Stop date: 04/20/12 9:00:00 PO No Longer Active [facility] 03/22/2012 [facility] Vimpat 300 mg, 3 tab, Route: PO, Drug form: TAB, BID, Dosing Weight 77.273, kg, Start date: 03/22/12 9:00:00, Stop date: 04/20/12 17:00:00 PO No Longer Active [facility] 03/22/2012 [facility] heparin 5,000 unit, 1 mL, Route: SUB-Q, Drug form: INJ, Q12H, Dosing Weight 77.273, kg, Start date: 03/22/12 9:00:00, Duration: 30 day, Stop date: 04/20/12 21:00:00 SUB-Q No Longer Active [facility] 03/22/2012 [facility] docusate 100 mg, 1 cap, Route: PO, Drug form: CAP, BID, Dosing Weight 77.273, kg, Start date: 03/22/12 9:00:00, Duration: 30 day, Stop date: 04/20/12 17:00:00 PO No Longer Active [facility] 03/22/2012 [facility] Cymbalta 60 mg, 2 cap, Route: PO, Drug form: DRC, Daily, Dosing Weight 77.273, kg, Start date: 03/22/12 9:00:00, Duration: 30 day, Stop date: 04/20/12 9:00:00 PO No Longer Active [facility] 03/22/2012 [facility] zonisamide 300 mg, 3 cap, Route: PO, Drug form: CAP, Daily, Dosing Weight 77.273, kg, Start date: 03/22/12 9:00:00, Duration: 30 day, Stop date: 04/20/12 9:00:00 PO No Longer Active [facility] 03/22/2012 [facility] Dextrose 50% Syringe 12.5 gm, 25 mL, Route: IVP, Drug Form: INJ, Dosing Weight 77.273, kg, PRN, PRN Blood Glucose Results, Start date: 03/22/12 7:00:00, Duration: 30 day, Stop date: 04/21/12 6:59:00 IVP No Longer Active [facility] 03/22/2012 [facility] insulin aspart 4 unit, 0.04 mL, Route: SUB-Q, Drug form: SOLN, TID-Before Meals, Dosing Weight 77.273, kg, PRN Blood Glucose Results, Start date: 03/22/12 7:00:00, Duration: 30 day, Stop date: 04/21/12 6:59:00 SUB-Q No Longer Active [facility] 03/22/2012 [facility] glucagon 1 mg, Route: IM, Drug form: PDR/INJ, PRN, Dosing Weight 77.273, kg, PRN Blood Glucose Results, Start date: 03/22/12 7:00:00, Duration: 30 day, Stop date: 04/21/12 6:59:00 IM No Longer Active [facility] 03/22/2012 [facility] diazepam 2 mg, 1 tab, Route: PO, Drug form: TAB, TID, Dosing Weight 77.273, kg, PRN as needed for anxiety, Start date: 03/22/12 6:25:00, Duration: 30 day, Stop date: 04/21/12 6:24:00 PO No Longer Active [facility] 03/22/2012 [facility] meclizine 25 mg, 1 tab, Route: PO, Drug form: TAB, TID, Dosing Weight 77.273, kg, PRN as needed for dizziness, Start date: 03/22/12 6:20:00, Duration: 30 day, Stop date: 04/21/12 6:19:00 PO No Longer Active [facility] 03/22/2012 [facility] fludrocortisone 0.1 mg oral tablet 0.1 mg, 1 tab, PO, BID, Substitution Allowed PO Active [facility] 03/22/2012 [facility] midodrine 5 mg oral tablet 5 mg, 1 tab, PO, TID, Substitution Allowed PO Active [facility] 03/22/2012 [facility] Lantus 30 units, SUB-Q, Daily, Substitution Allowed SUB-Q No Longer Active [facility] 03/22/2012 [facility] acetaminophen-hydrocodone 325 mg-5 mg oral tablet 1 tab, Route: PO, Drug Form: TAB, Dosing Weight 77.273, kg, Q4H, PRN Pain Score 1-3, Start date: 03/22/12 5:45:00, Duration: 30 day, Stop date: 04/21/12 5:44:00 PO No Longer Active [facility] 03/22/2012 [facility] Maalox 30 mL, Route: PO, Drug Form: SUSP, Dosing Weight 77.273, kg, Q4H, PRN Indigestion, Start date: 03/22/12 5:45:00, Duration: 30 day, Stop date: 04/21/12 5:44:00 PO No Longer Active [facility] 03/22/2012 [facility] Milk of Magnesia 30 ml, Route: PO, Drug Form: SUSP, Dosing Weight 77.273, kg, Q3H, PRN Constipation, Start date: 03/22/12 5:45:00, Duration: 2 doses or times, Stop date: 03/23/12 0:00:00 PO No Longer Active [facility] 03/22/2012 [facility] bisacodyl 10 mg, 1 supp, Route: [place], Drug form: SUPP, Daily, Dosing Weight 77.273, kg, PRN Constipation, Start date: 03/22/12 5:45:00, Duration: 30 day, Stop date: 04/21/12 5:44:00 [place] No Longer Active [facility] 03/22/2012 [facility] ALPRAZOLam 0.25 mg, 1 tab, Route: PO, Drug form: TAB, Q8H, Dosing Weight 77.273, kg, PRN Anxiety, Start date: 03/22/12 5:43:00, Duration: 30 day, Stop date: 04/21/12 5:42:00 PO No Longer Active [facility] 03/22/2012 [facility] ondansetron 4 mg, 2 mL, Route: IVP, Drug form: INJ, Q6H, Dosing Weight 77.273, kg, PRN Nausea & Vomiting, Start date: 03/22/12 5:43:00, Duration: 30 day, Stop date: 04/21/12 5:42:00 IVP No Longer Active [facility] 03/22/2012 [facility] acetaminophen 650 mg, 2 tab, Route: PO, Drug form: TAB, Q4H, Dosing Weight 77.273, kg, PRN Pain/Fever, Start date: 03/22/12 5:43:00, Duration: 30 day, Stop date: 04/21/12 5:42:00 PO No Longer Active [facility] 03/22/2012 [facility] fosphenytoin + Sodium Chloride 0.9% IV 50 mL 500 mg, 10 mL, Route: IVPB, ONCE, Dosing Weight 77.273, kg, Priority: STAT, Start date: 03/22/12 4:53:00, Stop date: 03/22/12 4:53:00 IVPB No Longer Active [facility] 03/22/2012 [facility] Insulin regular 10 unit, 0.1 mL, Route: IM, Drug form: SOLN, ONCE, Dosing Weight 77.273, kg, Priority: STAT, Start date: 03/22/12 4:08:00, Stop date: 03/22/12 4:08:00 IM No Longer Active [facility] 03/22/2012 [facility] Sodium Chloride 0.9% (Bolus) IV 1,000 mL 1,000 mL, Rate: 1,000 ml/hr, Infuse over: 1 hr, Route: IV, kg, Total Volume: 1,000, Bolus Dose, Priority: STAT, Start date: 03/22/12 4:04:00, Duration: 1 doses or times, Stop date: 03/22/12 5:03:00 IV No Longer Active [facility] 03/22/2012 [facility] Insulin regular 10 unit, 0.1 mL, Route: IVP, Drug form: SOLN, ONCE, Dosing Weight 77.273, kg, Priority: STAT, Start date: 03/22/12 4:04:00, Stop date: 03/22/12 4:04:00 IVP No Longer Active [facility] 03/22/2012 [facility] potassium chloride 20 mEq/15 mL oral liquid 20 mEq, 15 mL, Route: PO, Drug form: LIQ, ONCE, Dosing Weight 77.273, kg, Priority: STAT, Start date: 03/22/12 4:03:00, Stop date: 03/22/12 4:03:00 PO No Longer Active [facility] 03/22/2012 [facility] Cipro 400 mg, 200 mL, Route: IVPB, Drug form: INJ, ONCE, Dosing Weight 77.273, kg, Priority: STAT, Start date: 03/22/12 4:02:00, Stop date: 03/22/12 4:02:00 IVPB No Longer Active [facility] 03/22/2012 [facility] Zofran 8 mg, Route: IVP, Drug form: INJ, ONCE, Dosing Weight 77.273, kg, Priority: STAT, Start date: 03/22/12 3:39:00, Stop date: 03/22/12 3:39:00 IVP No Longer Active [facility] 03/22/2012 [facility] Sodium Chloride 0.9% (Bolus) IV 1000 mL 1,000 mL, Rate: 1,000 ml/hr, Infuse over: 1 hr, Route: IV, kg, Total Volume: 1,000, Bolus Dose, Priority: STAT, Start date: 03/22/12 3:24:00, Duration: 1 doses or times, Stop date: 03/22/12 4:23:00 IV No Longer Active [facility] 03/22/2012 [facility] NovoLog FlexPen 8 unit, 0.08 mL, Route: SUB-Q, Drug form: SOLN, Sliding Scale, PRN Blood Glucose Results, Start date: 11/30/11 10:22:00, Stop date: 12/30/11 10:21:00 SUB-Q No Longer Active [place] 11/30/2011 [facility] NovoLog FlexPen 7 unit, 0.07 mL, Route: SUB-Q, Drug form: SOLN, Sliding Scale, PRN Blood Glucose Results, Start date: 11/30/11 10:21:00, Stop date: 12/30/11 10:20:00 SUB-Q No Longer Active [place] 11/30/2011 [facility] NovoLog FlexPen 5 unit, 0.05 mL, Route: SUB-Q, Drug form: SOLN, Sliding Scale, PRN Blood Glucose Results, Start date: 11/30/11 10:20:00, Stop date: 12/30/11 10:19:00 SUB-Q No Longer Active [place] 11/30/2011 [facility] NovoLog FlexPen 1 unit, 0.01 mL, Route: SUB-Q, Drug form: SOLN, Sliding Scale, PRN Blood Glucose Results, Start date: 11/30/11 10:17:00, Duration: 30 day, Stop date: 12/30/11 10:16:00 SUB-Q No Longer Active [place] 11/30/2011 [facility] Lantus 20 unit, 0.2 mL, Route: SUB-Q, Drug form: INJ, QAM, Start date: 11/30/11 9:00:00, Duration: 30 day, Stop date: 12/29/11 9:00:00 SUB-Q No Longer Active [place] 11/30/2011 [facility] saxagliptin 5 mg, 1 tab, Route: PO, Drug form: TAB, Dinner, Start date: 07/22/11 17:00:00, Duration: 30 day, Stop date: 08/20/11 17:00:00 PO No Longer Active [facility] 07/22/2011 [facility] Glucophage XR 2,000 mg, 4 tab, Route: PO, Drug form: ERTAB, Dinner, Start date: 07/22/11 17:00:00, Duration: 30 day, Stop date: 08/20/11 17:00:00 PO No Longer Active [facility] 07/22/2011 [facility] Lantus 12 unit, 0.12 mL, Route: SUB-Q, Drug form: INJ, Daily, Start date: 07/22/11 14:00:00, Duration: 30 day, Stop date: 08/21/11 9:00:00 SUB-Q No Longer Active [facility] 07/22/2011 [facility] insulin regular human recombinant 100 units/mL injectable solution 2 unit, 0.02 mL, Route: SUB-Q, Drug form: SOLN, QID-Before Meals, PRN Blood Glucose Results, Start date: 07/22/11 13:04:00, Duration: 30 day, Stop date: 08/21/11 13:03:00 SUB-Q No Longer Active [facility] 07/22/2011 [facility] insulin regular human recombinant 100 units/mL injectable solution 10 unit, 0.1 mL, Route: SUB-Q, Drug form: SOLN, QID-Before Meals, PRN Blood Glucose Results, Start date: 07/22/11 13:03:00, Duration: 30 day, Stop date: 08/21/11 13:02:00 SUB-Q No Longer Active [facility] 07/22/2011 [facility] insulin regular human recombinant 100 units/mL injectable solution 6 unit, 0.06 mL, Route: SUB-Q, Drug form: SOLN, QID-Before Meals, PRN Blood Glucose Results, Start date: 07/22/11 13:02:00, Duration: 30 day, Stop date: 08/21/11 13:01:00 SUB-Q No Longer Active [facility] 07/22/2011 [facility] Humulin R 100 units/mL injectable solution 8 unit, 0.08 mL, Route: SUB-Q, Drug form: SOLN, QID-Before Meals, PRN Blood Glucose Results, Start date: 07/22/11 13:02:00, Duration: 30 day, Stop date: 08/21/11 13:01:00 SUB-Q No Longer Active [facility] 07/22/2011 [facility] Humulin R 100 units/mL injectable solution 4 unit, 0.04 mL, Route: SUB-Q, Drug form: SOLN, QID-Before Meals, PRN Blood Glucose Results, Start date: 07/22/11 13:01:00, Duration: 30 day, Stop date: 08/21/11 13:00:00 SUB-Q No Longer Active [facility] 07/22/2011 [facility] Motrin 600 mg, 1 tab, Route: PO, Drug form: TAB, Q8H, PRN Headache, Start date: 07/22/11 9:18:00, Duration: 30 day, Stop date: 08/21/11 9:17:00 PO No Longer Active [facility] 07/22/2011 [facility] pneumococcal 23-valent vaccine 0.5 ml, Route: IM, Drug Form: INJ, Start date: 07/22/11 9:00:00, Stop date: 07/22/11 9:00:00 IM No Longer Active [facility] 07/22/2011 KEISHA Bergman,[facility] Vimpat 300 mg, 3 tab, Route: PO, Drug form: TAB, Q12H, Start date: 07/22/11 9:00:00, Duration: 30 day, Stop date: 08/20/11 21:00:00 PO No Longer Active Hope 07/22/2011 [facility] Celexa 30 mg, 1.5 tab, Route: PO, Drug form: TAB, Daily, Start date: 07/22/11 9:00:00, Duration: 30 day, Stop date: 08/20/11 9:00:00 PO No Longer Active Hope 07/22/2011 [facility] atenolol 50 mg oral tablet 100 mg, 2 tab, Route: PO, Drug form: TAB, Daily, Priority: Routine, Start date: 07/22/11 9:00:00, Duration: 30 day, Stop date: 08/20/11 9:00:00 PO No Longer Active Hope 07/22/2011 [facility] Vimpat 300 mg, 3 tab, Route: PO, Drug form: TAB, Q12H, Priority: NOW, Start date: 07/22/11 0:48:00, Duration: 30 day, Stop date: 08/20/11 21:00:00 PO No Longer Active Hope 07/22/2011 [facility] Zonegran 200 mg, 2 cap, Route: PO, Drug form: CAP, Bedtime, Priority: NOW, Start date: 07/22/11 0:37:00, Duration: 30 day, Stop date: 08/20/11 21:00:00 PO No Longer Active Hope 07/22/2011 [facility] Neurontin 300 mg, 1 cap, Route: PO, Drug form: CAP, Q12H, Priority: NOW, Start date: 07/22/11 0:31:00, Duration: 30 day, Stop date: 08/20/11 21:00:00 PO No Longer Active Hope 07/22/2011 [facility] Dilantin 300 mg, 3 cap, Route: PO, Drug form: ERCAP, Bedtime, Priority: NOW, Start date: 07/22/11 0:30:00, Duration: 30 day, Stop date: 08/20/11 21:00:00 PO No Longer Active Hope 07/22/2011 [facility] Valium 2 mg, 1 tab, Route: PO, Drug form: TAB, TID, Priority: NOW, Start date: 07/22/11 0:29:00, Duration: 30 day, Stop date: 08/20/11 17:00:00 PO No Longer Active Hope 07/22/2011 [facility] Phenergan 12.5 mg, 0.5 mL, Route: IVPB, Drug form: INJ, ONCE, Start date: 06/18/11 18:30:00, Stop date: 06/18/11 18:30:00 IVPB No Longer Active Brian 06/19/2011 [facility] ketorolac 30 mg/mL injectable solution 15 mg, 0.5 mL, Route: IV, Drug form: INJ, ONCE, Start date: 06/18/11 18:15:00, Stop date: 06/18/11 18:15:00 IV No Longer Active Brian 06/19/2011 [facility] magnesium sulfate 2 gm, 50 mL, Route: IVPB, Drug form: INJ, ONCE, Start date: 06/18/11 18:15:00, Stop date: 06/18/11 18:15:00 IVPB No Longer Active Correa 06/19/2011 [facility] magnesium sulfate 2 gm, 50 mL, Route: IVPB, Drug form: INJ, Q2H, Total dose=6 gm, Start date: 06/18/11 18:00:00, Duration: 3 doses or times, Stop date: 06/18/11 22:00:00 IVPB No Longer Active Correa 06/19/2011 [facility] Glucophage 1000 mg oral tablet 1,000 mg, 1 tab, Route: PO, Drug form: TAB, BID-Meals, Start date: 06/18/11 10:00:00, Duration: 30 day, Stop date: 07/18/11 8:00:00 PO No Longer Active [facility] 06/18/2011 [facility] saxagliptin 5 mg, 1 tab, Route: PO, Drug form: TAB, QAM, Start date: 06/18/11 10:00:00, Duration: 30 day, Stop date: 07/18/11 8:00:00 PO No Longer Active [facility] 06/18/2011 [facility] insulin regular human recombinant 100 units/mL injectable solution 10 unit, 0.1 mL, Route: SUB-Q, Drug form: SOLN, Sliding Scale, PRN Blood Glucose Results, Start date: 06/18/11 9:33:00, Duration: 30 day, Stop date: 07/18/11 10:32:00 SUB-Q No Longer Active Hope 06/18/2011 [facility] insulin regular human recombinant 100 units/mL injectable solution 6 unit, 0.06 mL, Route: SUB-Q, Drug form: SOLN, Sliding Scale, PRN Blood Glucose Results, Start date: 06/18/11 9:32:00, Duration: 30 day, Stop date: 07/18/11 10:31:00 SUB-Q No Longer Active Hope 06/18/2011 [facility] insulin regular human recombinant 100 units/mL injectable solution 2 unit, 0.02 mL, Route: SUB-Q, Drug form: SOLN, Sliding Scale, PRN Blood Glucose Results, Start date: 06/18/11 9:31:00, Duration: 30 day, Stop date: 07/18/11 10:30:00 SUB-Q No Longer Active Hope 06/18/2011 [facility] Ativan 1 mg, 0.5 mL, Route: IVP, Drug form: INJ, ONCE, Start date: 06/18/11 5:00:00, Stop date: 06/18/11 5:00:00 IVP No Longer Active Heladio 06/18/2011 [facility] insulin regular human recombinant 100 units/mL injectable solution 4 unit, 0.04 mL, Route: SUB-Q, Drug form: SOLN, ONCE, Start date: 06/17/11 22:30:00, Stop date: 06/17/11 22:30:00 SUB-Q No Longer Active Movva 06/18/2011 [facility] Zonegran 300 mg, 3 cap, Route: PO, Drug form: CAP, Bedtime, Start date: 06/17/11 21:00:00, Duration: 30 day, Stop date: 07/16/11 21:00:00 PO No Longer Active Hope 06/18/2011 [facility] Phenergan 12.5 mg, 0.5 mL, Route: IVPB, Drug form: INJ, ONCE, Start date: 06/17/11 18:45:00, Stop date: 06/17/11 18:45:00 IVPB No Longer Active Heladio 06/18/2011 [facility] Vimpat 300 mg, 3 tab, Route: PO, Drug form: TAB, BID, Start date: 06/17/11 17:00:00, Duration: 30 day, Stop date: 07/17/11 9:00:00 PO No Longer Active Hope 06/17/2011 [facility] Lantus 12 unit, 0.12 mL, Route: SUB-Q, Drug form: INJ, Q24H, Start date: 06/17/11 14:30:00, Stop date: 07/16/11 14:30:00 SUB-Q No Longer Active Correa 06/17/2011 [facility] Sodium Chloride 0.9% IV IV, 250 ml/hr, ONCE, Start date: 06/17/11 14:30:00, 500 ml IV No Longer Active Correa 06/17/2011 [facility] Humulin R 100 units/mL injectable solution 15 unit, 0.15 mL, Route: SUB-Q, Drug form: SOLN, Sliding Scale, PRN Blood Glucose Results, Start date: 06/17/11 12:36:00, Duration: 30 day, Stop date: 07/17/11 13:35:00 SUB-Q No Longer Active Hope 06/17/2011 [facility] Dextrose 50% in Water IV 25 gm, 50 mL, Route: IV, Drug Form: INJ, PRN, PRN Blood Glucose Results, Start date: 06/17/11 12:36:00, Duration: 30 day, Stop date: 07/17/11 13:35:00 IV No Longer Active Hope 06/17/2011 [facility] Dextrose 50% in Water IV 12.5 gm, 25 mL, Route: IV, Drug Form: INJ, PRN, PRN Blood Glucose Results, Start date: 06/17/11 12:35:00, Duration: 30 day, Stop date: 07/17/11 13:34:00 IV No Longer Active Hope 06/17/2011 [facility] Zonegran 300 mg, 3 cap, Route: PO, Drug form: CAP, ONCE, Start date: 06/17/11 12:00:00, Stop date: 06/17/11 12:00:00 PO No Longer Active Hope 06/17/2011 [facility] ketorolac 30 mg/mL injectable solution 15 mg, 0.5 mL, Route: IV, Drug form: INJ, ONCE, Start date: 06/17/11 12:00:00, Stop date: 06/17/11 12:00:00 IV No Longer Active Hope 06/17/2011 [facility] insulin regular human recombinant 100 units/mL injectable solution 15 unit, 0.15 mL, Route: SUB-Q, Drug form: SOLN, ONCE, Start date: 06/17/11 12:00:00, Stop date: 06/17/11 12:00:00 SUB-Q No Longer Active Hope 06/17/2011 [facility] Zonegran 200 mg, 2 cap, Route: PO, Drug form: CAP, Bedtime, Start date: 06/16/11 21:00:00, Duration: 30 day, Stop date: 07/15/11 21:00:00 PO No Longer Active Hope 06/17/2011 [facility] hydrOXYzine 25 mg, 1 tab, Route: PO, Drug form: TAB, ONCE, PRN Itching, Start date: 06/16/11 20:51:00, Stop date: 07/16/11 19:50:00 PO No Longer Active Joya 06/17/2011 [facility] Benadryl 25 mg, 1 cap, Route: PO, Drug form: CAP, ONCE, Start date: 06/16/11 17:27:00, Stop date: 06/16/11 17:27:00 PO No Longer Active Hope 06/16/2011 [facility] acetaminophen-hydrocodone 325 mg-5 mg oral tablet 2 tab, Route: PO, Drug Form: TAB, Q6H, PRN Headache, Start date: 06/16/11 15:38:00, Stop date: 07/16/11 15:37:00 PO No Longer Active Hope 06/16/2011 [facility] acetaminophen-hydrocodone 325 mg-5 mg oral tablet 1 tab, Route: PO, Drug Form: TAB, Q6H, PRN Headache, Start date: 06/16/11 15:36:00, Stop date: 07/16/11 15:35:00 PO No Longer Active Brian 06/16/2011 [facility] Cerebyx 500 mg, 10 mL, Route: IV, Drug form: INJ, ONCE, Start date: 06/16/11 13:39:00, Stop date: 06/16/11 13:39:00 IV No Longer Active Hope 06/16/2011 [facility] Benadryl 25 mg, 1 cap, Route: PO, Drug form: CAP, On Adm, Start date: 06/16/11 12:30:00, Duration: 1 doses or times, Stop date: 06/16/11 14:30:00 PO No Longer Active Hope 06/16/2011 [facility] Kombiglyze 2.08/999 mg Kombiglyze 2.08/999 mg, 2 tab, Drug form: MISC, Route: PO, QAM, 06/16/11 9:00:00, Duration: 30 day, Stop date: 07/15/11 9:00:00 PO No Longer Active Silveira 06/16/2011 [facility] Florinef Acetate 0.1 mg, 1 tab, Route: PO, Drug form: TAB, TID, Start date: 06/16/11 9:00:00, Duration: 30 day, Stop date: 07/15/11 17:00:00 PO No Longer Active Hope 06/16/2011 [facility] atenolol 50 mg oral tablet 150 mg, 3 tab, Route: PO, Drug form: TAB, BID, Start date: 06/16/11 9:00:00, Duration: 30 day, Stop date: 07/15/11 17:00:00 PO No Longer Active Hope 06/16/2011 [facility] Celexa 30 mg, 1.5 tab, Route: PO, Drug form: TAB, QAM, Start date: 06/16/11 9:00:00, Duration: 30 day, Stop date: 07/15/11 9:00:00 PO No Longer Active Hope 06/16/2011 [facility] Valium 2 mg, 1 tab, Route: PO, Drug form: TAB, TID, Start date: 06/16/11 9:00:00, Duration: 30 day, Stop date: 07/15/11 17:00:00 PO No Longer Active Hope 06/16/2011 [facility] Dilantin 200 mg, 2 cap, Route: PO, Drug form: ERCAP, BID, Start date: 06/16/11 9:00:00, Duration: 30 day, Stop date: 07/15/11 17:00:00 PO No Longer Active Hope 06/16/2011 [facility] Vimpat 250 mg, 2.5 tab, Route: PO, Drug form: TAB, BID, Start date: 06/16/11 9:00:00, Duration: 30 day, Stop date: 07/15/11 17:00:00 PO No Longer Active Walden 06/16/2011 [facility] Antivert 25 mg, 1 tab, Route: PO, Drug form: TAB, TID, Start date: 06/16/11 9:00:00, Duration: 30 day, Stop date: 07/15/11 17:00:00 PO No Longer Active Hope 06/16/2011 [facility] acetaminophen-hydrocodone 325 mg-5 mg oral tablet 1 tab, Route: PO, Drug Form: TAB, ONCE, Start date: 06/16/11 3:00:00, Stop date: 06/16/11 3:00:00 PO No Longer Active Walden 06/16/2011 [facility] Tylenol 650 mg, 2 tab, Route: PO, Drug form: TAB, Q4H, PRN Pain/Fever, Start date: 06/16/11 0:38:00, Duration: 30 day, Stop date: 07/16/11 0:37:00 PO No Longer Active Walden 06/16/2011 [facility] Humulin R 100 units/mL injectable solution 10 unit, 0.1 mL, Route: SUB-Q, Drug form: SOLN, Sliding Scale, PRN Blood Glucose Results, Start date: 06/15/11 23:33:00, Duration: 30 day, Stop date: 07/16/11 0:32:00 SUB-Q No Longer Active Walden 06/16/2011 [facility] Humulin R 100 units/mL injectable solution 2 unit, 0.02 mL, Route: SUB-Q, Drug form: SOLN, Sliding Scale, PRN Blood Glucose Results, Start date: 06/15/11 23:32:00, Duration: 30 day, Stop date: 07/16/11 0:31:00 SUB-Q No Longer Active Walden 06/16/2011 [facility] Humulin R 100 units/mL injectable solution 8 unit, 0.08 mL, Route: SUB-Q, Drug form: SOLN, Sliding Scale, PRN Blood Glucose Results, Start date: 06/15/11 23:01:00, Duration: 30 day, Stop date: 07/16/11 0:00:00 SUB-Q No Longer Active Hope 06/16/2011 [facility] Humulin R 100 units/mL injectable solution 2 unit, 0.02 mL, Route: SUB-Q, Drug form: SOLN, Sliding Scale, PRN Blood Glucose Results, Start date: 06/15/11 23:00:00, Duration: 30 day, Stop date: 07/15/11 23:59:00 SUB-Q No Longer Active Hope 06/16/2011 [facility] Dextrose 50% in Water IV 25 gm, 50 mL, Route: IV, Drug Form: INJ, PRN, PRN Blood Glucose Results, Start date: 06/15/11 23:00:00, Duration: 30 day, Stop date: 07/15/11 23:59:00 IV No Longer Active Hope 06/16/2011 [facility] Cerebyx 500 mg, 10 mL, Route: IVPB, ONCE, Start date: 06/15/11 23:00:00, Stop date: 06/15/11 23:00:00 IVPB No Longer Active Hope 06/16/2011 [facility] Ativan 2 mg, 1 mL, Route: IV, Drug form: INJ, ONCE, Start date: 06/15/11 21:10:00, Stop date: 06/15/11 21:10:00 IV No Longer Active Silveira 06/16/2011 [facility] Dulcolax Laxative 10 mg, 1 supp, Route: [place], Drug form: SUPP, ONCE, Start date: 06/06/11 12:00:00, Stop date: 06/06/11 12:00:00 [place] No Longer Active Lo 06/06/2011 [facility] Citrate of Magnesia 300 mL, Route: PO, Drug Form: LIQ, ONCE, Start date: 06/06/11 12:00:00, Stop date: 06/06/11 12:00:00 PO No Longer Active Lo 06/06/2011 [facility] ketorolac 30 mg/mL injectable solution 30 mg, 1 mL, Route: IV, Drug form: INJ, Q6H, PRN Pain, Start date: 06/06/11 11:00:00, Duration: 2 day, Stop date: 06/08/11 10:59:00 IV No Longer Active Lo 06/06/2011 [facility] Glucophage 1000 mg oral tablet 2,000 mg, 2 tab, Route: PO, Drug form: TAB, QAM, Start date: 06/06/11 9:00:00, Duration: 30 day, Stop date: 07/05/11 9:00:00 PO No Longer Active Lo 06/06/2011 [facility] Celexa 30 mg, 1.5 tab, Route: PO, Drug form: TAB, Daily, Start date: 06/06/11 9:00:00, Duration: 30 day, Stop date: 07/05/11 9:00:00 PO No Longer Active Lo 06/06/2011 [facility] Zonegran 200 mg, 2 cap, Route: PO, Drug form: CAP, Bedtime, Start date: 06/05/11 22:30:00, Duration: 30 day, Stop date: 07/05/11 21:00:00 PO No Longer Active Tarango 06/06/2011 [facility] Vimpat 150 mg, 1.5 tab, Route: PO, Drug form: TAB, Q12H, Start date: 06/05/11 21:00:00, Duration: 30 day, Stop date: 07/05/11 9:00:00 PO No Longer Active Lo 06/06/2011 [facility] BD Posiflush SF 5 ml, Route: IVP, Drug Form: INJ, Q12H, Start date: 06/05/11 21:00:00, Duration: 30 day, Stop date: 07/05/11 9:00:00 IVP No Longer Active Lo 06/06/2011 [facility] Senokot 8.6 mg, 1 tab, Route: PO, Drug Form: TAB, Bedtime, Start date: 06/05/11 21:00:00, Duration: 30 day, Stop date: 07/04/11 21:00:00 PO No Longer Active Lo 06/06/2011 [facility] Dilantin 200 mg, 2 cap, Route: PO, Drug form: ERCAP, Q12H, Start date: 06/05/11 21:00:00, Duration: 30 day, Stop date: 07/05/11 9:00:00 PO No Longer Active Lo 06/06/2011 [facility] dexamethasone 4 mg, 0.4 mL, Route: IVP, Drug form: INJ, Q6H, Start date: 06/05/11 18:00:00, Duration: 1 day, Stop date: 06/06/11 12:00:00 IVP No Longer Active Lo 06/06/2011 [facility] Antivert 25 mg, 1 tab, Route: PO, Drug form: TAB, TID, Start date: 06/05/11 17:00:00, Duration: 30 day, Stop date: 07/05/11 13:00:00 PO No Longer Active Lo 06/05/2011 [facility] Florinef Acetate 0.1 mg, 1 tab, Route: PO, Drug form: TAB, TID, Start date: 06/05/11 17:00:00, Duration: 30 day, Stop date: 07/05/11 13:00:00 PO No Longer Active Lo 06/05/2011 [facility] docusate sodium 100 mg oral capsule 100 mg, 1 cap, Route: PO, Drug form: CAP, BID, Start date: 06/05/11 17:00:00, Duration: 30 day, Stop date: 07/05/11 9:00:00 PO No Longer Active Lo 06/05/2011 [facility] Maxipime 2 gm, Route: IVPB, Drug form: INJ, ABXQ8H, Start date: 06/05/11 17:00:00, Duration: 30 day, Stop date: 07/05/11 9:00:00 IVPB No Longer Active Lo 06/05/2011 [facility] vancomycin 1 gm, Route: IVPB, Drug form: INJ, ABXQ8H, Start date: 06/05/11 17:00:00, Duration: 30 day, Stop date: 07/05/11 9:00:00 IVPB No Longer Active Lo 06/05/2011 [facility] heparin 5,000 unit, 1 mL, Route: SUB-Q, Drug form: INJ, Q8H, Start date: 06/05/11 16:00:00, Duration: 30 day, Stop date: 07/05/11 8:00:00 SUB-Q No Longer Active Lo 06/05/2011 [facility] heparin 5000 units/mL injectable solution 5,000 unit, 1 mL, Route: SUB-Q, Drug form: INJ, Q8H, Start date: 06/05/11 16:00:00, Duration: 30 day, Stop date: 07/05/11 8:00:00 SUB-Q No Longer Active Enriquez 06/05/2011 [facility] BD Posiflush SF 5 ml, Route: IVP, Drug Form: INJ, PRN, PRN Line Flush, Start date: 06/05/11 15:18:00, Duration: 30 day, Stop date: 07/05/11 15:17:00 IVP No Longer Active Lo 06/05/2011 [facility] Zofran 4 mg, 2 mL, Route: IVP, Drug form: INJ, Q8H, PRN Nausea, Start date: 06/05/11 15:17:00, Duration: 30 day, Stop date: 07/05/11 15:16:00 IVP No Longer Active Lo 06/05/2011 [facility] NS + KCL 20mEq/L 1000ml (Premix) 1,000 mL 1,000 mL, Rate: 75 ml/hr, Infuse over: 13.3 hr, Route: IV, Total Volume: 1,000, Start date: 06/05/11 15:16:00, Duration: 30 day, Stop date: 07/05/11 15:15:00 IV No Longer Active Lo 06/05/2011 [facility] Skelaxin 800 mg, 1 tab, Route: PO, Drug form: TAB, TID, PRN See Nurse's Notes, Start date: 06/05/11 15:16:00, Duration: 30 day, Stop date: 07/05/11 15:15:00 PO No Longer Active Lo 06/05/2011 [facility] Milk of Magnesia 30 mL, Route: PO, Drug Form: SUSP, Q12H, PRN Other -See Comment, Start date: 06/05/11 15:15:00, Duration: 30 day, Stop date: 07/05/11 15:14:00 PO No Longer Active Lo 06/05/2011 [facility] insulin regular human recombinant 100 units/mL injectable solution 7 unit, 0.07 mL, Route: SUB-Q, Drug form: SOLN, PRN, PRN Abnormal Lab Result, Start date: 06/05/11 15:14:00, Duration: 30 day, Stop date: 07/05/11 15:13:00 SUB-Q No Longer Active Lo 06/05/2011 [facility] Dilaudid 0.2 mg, 0.1 mL, Route: IV, Drug form: INJ, Q2H, PRN Pain, Priority: STAT, Start date: 06/05/11 15:13:00, Duration: 30 day, Stop date: 07/05/11 15:12:00 IV No Longer Active Lo 06/05/2011 [facility] Valium 2 mg, 1 tab, Route: PO, Drug form: TAB, TID, PRN Anxiety, Start date: 06/05/11 15:12:00, Duration: 30 day, Stop date: 07/05/11 15:11:00 PO No Longer Active Lo 06/05/2011 [facility] Dextrose 50% Syringe 6.25 gm, 12.5 mL, Route: IVP, Drug Form: INJ, PRN, PRN Abnormal Lab Result, Start date: 06/05/11 15:11:00, Duration: 30 day, Stop date: 07/05/11 15:10:00 IVP No Longer Active Lo 06/05/2011 [facility] Dextrose 50% Syringe 25 gm, 50 mL, Route: IVP, Drug Form: INJ, PRN, PRN Abnormal Lab Result, Start date: 06/05/11 15:10:00, Duration: 30 day, Stop date: 07/05/11 15:09:00 IVP No Longer Active Lo 06/05/2011 [facility] acetaminophen-hydrocodone 325 mg-5 mg oral tablet 2 tab, Route: PO, Drug Form: TAB, Q4H, PRN Pain, Start date: 06/05/11 15:08:00, Duration: 30 day, Stop date: 07/05/11 15:07:00 PO No Longer Active Lo 06/05/2011 [facility] acetaminophen-hydrocodone 325 mg-5 mg oral tablet 1 tab, Route: PO, Drug Form: TAB, Q6H, PRN Pain, Start date: 06/05/11 15:05:00, Duration: 30 day, Stop date: 07/05/11 15:04:00 PO No Longer Active Lo 06/05/2011 [facility] Tylenol 650 mg, 2 tab, Route: PO, Drug form: TAB, Q6H, PRN Pain, Start date: 06/05/11 15:04:00, Duration: 30 day, Stop date: 07/05/11 15:03:00 PO No Longer Active Hata 06/05/2011 [facility] Dilantin 200 mg, 2 cap, Route: PO, Drug form: ERCAP, Q12H, Start date: 06/05/11 9:40:00, Duration: 30 day, Stop date: 07/05/11 9:00:00 PO No Longer Active Almaguer 06/05/2011 [facility] sodium phosphate 36 mmol, 12 mL, Route: IV, ONCE, Start date: 06/05/11 7:00:00, Stop date: 06/05/11 7:00:00 IV No Longer Active Tarango 06/05/2011 [facility] calcium gluconate 3,000 mg, 30 mL, Route: IVPB, ONCE, Start date: 06/05/11 7:00:00, Stop date: 06/05/11 7:00:00 IVPB No Longer Active Tarango 06/05/2011 [facility] dexamethasone 4 mg, 0.4 mL, Route: IVP, Drug form: INJ, Q6H, Start date: 06/05/11 0:00:00, Duration: 1 day, Stop date: 06/05/11 18:00:00 IVP No Longer Active Lo 06/05/2011 [facility] magnesium sulfate 2 gm, 50 mL, Route: IVPB, Drug form: INJ, Q2H, Start date: 06/04/11 20:00:00, Duration: 2 doses or times, Stop date: 06/04/11 22:00:00 IVPB No Longer Active Tarango 06/05/2011 [facility] calcium chloride 1,000 mg, 10 mL, Route: IVPB, ONCE, Start date: 06/04/11 19:30:00, Stop date: 06/04/11 19:30:00 IVPB No Longer Active Tarango 06/05/2011 [facility] potassium chloride 20 mEq, 100 mL, Route: IVPB, Q2H, Start date: 06/04/11 18:00:00, Duration: 2 doses or times, Stop date: 06/04/11 20:00:00 IVPB No Longer Active Tarango 06/05/2011 [facility] magnesium sulfate 4 gm, 50 mL, IVPB, 50 ml/hr, ONCE, Start date: 06/04/11 18:00:00, 50 ml IVPB No Longer Active Tarango 06/05/2011 [facility] vancomycin 1 gm, Route: IVPB, Drug form: INJ, ABXQ8H, Start date: 06/04/11 17:00:00, Duration: 30 day, Stop date: 07/04/11 9:00:00 IVPB No Longer Active Abdunnur 06/04/2011 [facility] Maxipime 2 gm, Route: IVPB, Drug form: INJ, ABXQ8H, Start date: 06/04/11 17:00:00, Duration: 30 day, Stop date: 07/04/11 9:00:00 IVPB No Longer Active Abdunnur 06/04/2011 [facility] cefepime 2 gm, Route: IVPB, Drug form: INJ, ABXQ8H, Start date: 06/04/11 13:00:00, Duration: 30 day, Stop date: 07/04/11 5:00:00 IVPB No Longer Active Alfreda 06/04/2011 [facility] ondansetron 4 mg, 2 mL, Route: IVP, Drug form: INJ, ONCE, PRN Nausea & Vomiting, Start date: 06/04/11 12:16:00 [facility] naloxone 0.04 mg, 0.1 mL, Route: IVP, Drug form: INJ, Q2MIN, PRN Narcotic Reversal, Start date: 06/04/11 12:16:00, Duration: 8 doses or times, Stop date: Limited # of times IVP No Longer Active Dain 06/04/2011 [facility] hydromorphone 0.5 mg, 0.25 mL, Route: IVP, Drug form: INJ, Q5Min, PRN Pain Score 4-6, Start date: 06/04/11 12:16:00, Duration: 5 doses or times, Stop date: Limited # of times IVP No Longer Active Dain 06/04/2011 [facility] flumazenil 0.2 mg, 2 mL, Route: IVP, Drug form: INJ, PRN, PRN Other -See Comment, Initial dose, Start date: 06/04/11 12:16:00, Stop date: 06/04/11 23:00:00 IVP No Longer Active Dain 06/04/2011 [facility] vancomycin 1 gm, Route: IVPB, Drug form: INJ, ONCE, Start date: 06/04/11 10:25:00, Stop date: 06/04/11 10:25:00 IVPB No Longer Active Lance 06/04/2011 [facility] cefepime 2 gm, Route: IVPB, ONCE, Start date: 06/04/11 8:43:00, Stop date: 06/04/11 8:43:00 IVPB No Longer Active Lance 06/04/2011 [facility] K-Dur 20 40 mEq, 2 tab, Route: PO, Drug form: ERTAB, ONCE, Start date: 06/04/11 2:00:00, Stop date: 06/04/11 2:00:00 PO No Longer Active Billy 06/04/2011 [facility] potassium chloride 20 mEq, 100 mL, Route: IVPB, Q2H, Start date: 06/04/11 2:00:00, Duration: 2 doses or times, Stop date: 06/04/11 4:00:00 IVPB No Longer Active Tarango 06/04/2011 [facility] NS + KCL 20mEq/L 1000ml (Premix) 1,000 mL 1,000 mL, Rate: 75 ml/hr, Infuse over: 13.3 hr, Route: IV, Total Volume: 1,000, Start date: 06/04/11 0:57:00, Duration: 30 day, Stop date: 07/04/11 0:56:00 IV No Longer Active 06/04/2011 [facility] potassium chloride 20 mEq, 100 mL, Route: IVPB, Q2H, Start date: 06/03/11 22:00:00, Duration: 2 doses or times, Stop date: 06/04/11 0:00:00 IVPB No Longer Active [place] 06/04/2011 [facility] potassium chloride 20 mEq, 100 mL, Route: IVPB, Q2H, Start date: 06/03/11 18:00:00, Duration: 2 doses or times, Stop date: 06/03/11 20:00:00 IVPB No Longer Active [place] 06/04/2011 [facility] Ativan 2 mg, 1 mL, Route: IVP, Drug form: INJ, ONCE, Start date: 06/03/11 15:53:00, Stop date: 06/03/11 15:53:00 IVP No Longer Active [place] 06/03/2011 [facility] Vimpat 200 mg, 20 mL, 120 ml/hr, Route: IV, ONCE, Start date: 06/03/11 12:00:00, Stop date: 06/03/11 12:00:00 IV No Longer Active [place] 06/03/2011 [facility] Cerebyx 500 mg, 10 mL, Route: IVPB, ONCALL, Start date: 06/03/11 11:30:00, Duration: 1 doses or times, Stop date: 06/03/11 12:00:00 IVPB No Longer Active Tarango 06/03/2011 [facility] Cerebyx 1,545 mg, 30.9 mL, Route: IVPB, ONCALL, Start date: 06/03/11 10:00:00, Duration: 1 doses or times, Stop date: 06/03/11 11:00:00 IVPB No Longer Active Tarango 06/03/2011 [facility] Vimpat 150 mg, 1.5 tab, Route: PO, Drug form: TAB, Q12H, Start date: 06/02/11 21:00:00, Duration: 30 day, Stop date: 07/02/11 9:00:00 PO No Longer Active Tarango 06/03/2011 [facility] Vimpat 200 mg, 2 tab, Route: PO, Drug form: TAB, ONCE, Start date: 06/02/11 10:45:00, Stop date: 06/02/11 10:45:00 PO No Longer Active Tarango 06/02/2011 [facility] Ativan 2 mg, 1 mL, Route: IV, Drug form: INJ, ONCE, Start date: 06/02/11 10:45:00, Stop date: 06/02/11 10:45:00 IV No Longer Active Tarango 06/02/2011 [facility] tramadol 50 mg oral tablet 100 mg, 2 tab, Route: PO, Drug form: TAB, Q6AM, Start date: 06/02/11 6:00:00, Duration: 1 doses or times, Stop date: 06/02/11 6:00:00 PO No Longer Active Tarango 06/02/2011 [facility] Benadryl 50 mg, 2 cap, Route: PO, Drug form: CAP, Q6AM, Start date: 06/02/11 6:00:00, Duration: 1 doses or times, Stop date: 06/02/11 6:00:00 PO No Longer Active Tarango 06/02/2011 [facility] ethanol 1 ea, Route: PO, Drug Form: LIQ, ONCALL, Start date: 06/02/11 0:00:00, Duration: 1 doses or times, Stop date: 06/02/11 12:00:00 PO No Longer Active Tarango 06/02/2011 [facility] tramadol 50 mg oral tablet 50 mg, 1 tab, Route: PO, Drug form: TAB, ONCALL, Start date: 06/02/11 0:00:00, Duration: 1 doses or times, Stop date: 06/02/11 12:00:00 PO No Longer Active Tarango 06/02/2011 [facility] Benadryl 25 mg, 1 cap, Route: PO, Drug form: CAP, ONCALL, Start date: 06/02/11 0:00:00, Duration: 1 doses or times, Stop date: 06/02/11 12:00:00 PO No Longer Active Tarango 06/02/2011 [facility] Vimpat 100 mg, 1 tab, Route: PO, Drug form: TAB, Q12H, Start date: 06/01/11 21:00:00, Duration: 30 day, Stop date: 07/01/11 9:00:00 PO No Longer Active Tarango 06/02/2011 [facility] Zonegran 200 mg, 2 cap, Route: PO, Drug form: CAP, Bedtime, Start date: 06/01/11 21:00:00, Duration: 30 day, Stop date: 06/30/11 21:00:00 PO No Longer Active Tarango 06/02/2011 [facility] Valium 5 mg, 1 mL, Route: IV, Drug form: INJ, ONCE, Start date: 06/01/11 15:30:00, Stop date: 06/01/11 15:30:00 IV No Longer Active Tarango 06/01/2011 [facility] Valium 5 mg, 1 mL, Route: IV, Drug form: INJ, PRN, PRN See Nurse's Notes, Start date: 06/01/11 14:24:00, Duration: 1 doses or times, Stop date: 06/01/11 23:00:00 IV No Longer Active Tarango 06/01/2011 [facility] tramadol 50 mg oral tablet 50 mg, 1 tab, Route: PO, Drug form: TAB, ONCALL, Start date: 06/01/11 0:00:00, Duration: 1 doses or times, Stop date: 06/01/11 12:00:00 PO No Longer Active Tarango 06/01/2011 [facility] Benadryl 25 mg, 1 cap, Route: PO, Drug form: CAP, ONCALL, Start date: 06/01/11 0:00:00, Duration: 1 doses or times, Stop date: 06/01/11 12:00:00 PO No Longer Active Tarango 06/01/2011 [facility] Milk of Magnesia 30 mL, Route: PO, Drug Form: SUSP, Q12H, PRN Other -See Comment, Start date: 05/31/11 17:23:00, Duration: 30 day, Stop date: 06/30/11 17:22:00 PO No Longer Active Pillainayagam 05/31/2011 [facility] Saxagliptin 5 mg tablet Saxagliptin 5 mg tablet, 1 tab, Drug form: MISC, Route: PO, QAM, 05/30/11 9:00:00, Duration: 30 day, Stop date: 06/28/11 9:00:00 PO No Longer Active Tarango 05/30/2011 [facility] Glucophage 1000 mg oral tablet 2,000 mg, 2 tab, Route: PO, Drug form: TAB, QAM, Start date: 05/30/11 9:00:00, Duration: 30 day, Stop date: 06/28/11 9:00:00 PO No Longer Active Tarango 05/30/2011 [facility] Florinef Acetate 0.1 mg, 1 tab, Route: PO, Drug form: TAB, TID, Start date: 05/30/11 9:00:00, Duration: 30 day, Stop date: 06/28/11 17:00:00 PO No Longer Active Tarango 05/30/2011 [facility] Antivert 25 mg, 1 tab, Route: PO, Drug form: TAB, TID, Start date: 05/30/11 9:00:00, Duration: 30 day, Stop date: 06/28/11 17:00:00 PO No Longer Active Tarango 05/30/2011 [facility] docusate sodium 100 mg oral capsule 100 mg, 1 cap, Route: PO, Drug form: CAP, BID, Start date: 05/30/11 9:00:00, Duration: 30 day, Stop date: 06/28/11 17:00:00 PO No Longer Active Abdunnur 05/30/2011 [facility] Celexa 30 mg, 1.5 tab, Route: PO, Drug form: TAB, Daily, Start date: 05/30/11 9:00:00, Duration: 30 day, Stop date: 06/28/11 9:00:00 PO No Longer Active Tarango 05/30/2011 [facility] Dilaudid 0.2 mg, 0.1 mL, Route: IV, Drug form: INJ, Q2H, PRN Pain, Priority: STAT, Start date: 05/30/11 6:35:00, Duration: 30 day, Stop date: 06/29/11 6:34:00 IV No Longer Active Lo 05/30/2011 [facility] ketorolac 30 mg/mL injectable solution 30 mg, 1 mL, Route: IV, Drug form: INJ, Q6H-02, Priority: STAT, Start date: 05/30/11 2:26:00, Duration: 4 day, Stop date: 06/03/11 2:00:00 IV No Longer Active Lance 05/30/2011 [facility] ketorolac 30 mg/mL injectable solution 30 mg, 1 mL, Route: IV, Drug form: INJ, Q6H-02, Priority: STAT, Start date: 05/30/11 2:24:00, Duration: 4 day, Stop date: 06/03/11 2:00:00 IV No Longer Active Lance 05/30/2011 [facility] dexamethasone 4 mg, 1 mL, Route: IVP, Drug form: INJ, Q6H, Start date: 05/30/11 0:00:00, Duration: 2 day, Stop date: 05/31/11 18:00:00 IVP No Longer Active Abdunnur 05/30/2011 [facility] Ativan 2 mg, 1 mL, Route: IV, Drug form: INJ, ONCE, Start date: 05/29/11 23:49:00, Stop date: 05/29/11 23:49:00 IV Active Tarango 05/30/2011 [facility] Skelaxin 800 mg, 1 tab, Route: PO, Drug form: TAB, TID, PRN See Nurse's Notes, Start date: 05/29/11 22:17:00, Duration: 30 day, Stop date: 06/28/11 22:16:00 PO No Longer Active Tarango 05/30/2011 [facility] BD Posiflush SF 5 ml, Route: IVP, Drug Form: INJ, Q12H, Start date: 05/29/11 21:00:00, Duration: 30 day, Stop date: 06/28/11 9:00:00 IVP No Longer Active Enriquez 05/30/2011 [facility] Senokot 8.6 mg, 1 tab, Route: PO, Drug Form: TAB, Bedtime, Start date: 05/29/11 21:00:00, Duration: 30 day, Stop date: 06/27/11 21:00:00 PO No Longer Active Abdunnur 05/30/2011 [facility] Zonegran 200 mg, 2 cap, Route: PO, Drug form: CAP, Bedtime, Start date: 05/29/11 21:00:00, Duration: 30 day, Stop date: 06/27/11 21:00:00 PO No Longer Active Benavidez 05/30/2011 [facility] Vimpat 150 mg, 1 tab, Route: PO, Drug form: TAB, Q12H, Start date: 05/29/11 21:00:00, Duration: 30 day, Stop date: 06/28/11 9:00:00 PO No Longer Active Hata 05/30/2011 [facility] Dilantin 200 mg, 2 cap, Route: PO, Drug form: ERCAP, Q12H, Start date: 05/29/11 21:00:00, Duration: 30 day, Stop date: 06/28/11 9:00:00 PO No Longer Active Hata 05/30/2011 [facility] atenolol 50 mg oral tablet 50 mg, 1 tab, Route: PO, Drug form: TAB, Q12H, Start date: 05/29/11 21:00:00, Duration: 30 day, Stop date: 06/28/11 9:00:00 PO No Longer Active Hata 05/30/2011 [facility] cefazolin 2 gm, Route: IVPB, Drug form: INJ, ABXQ8H, Start date: 05/29/11 20:00:00, Duration: 30 day, Stop date: 06/28/11 12:00:00 IVPB No Longer Active Abdunnur 05/30/2011 [facility] Zofran 4 mg, 2 mL, Route: IVP, Drug form: INJ, Q8H, PRN Nausea, Start date: 05/29/11 19:14:00, Duration: 30 day, Stop date: 06/28/11 19:13:00 IVP No Longer Active Kenneth 05/30/2011 [facility] Valium 2 mg, 1 tab, Route: PO, Drug form: TAB, TID, PRN Anxiety, Start date: 05/29/11 19:12:00, Duration: 30 day, Stop date: 06/28/11 19:11:00 PO No Longer Active Tarango 05/30/2011 [facility] BD Posiflush SF 5 ml, Route: IVP, Drug Form: INJ, PRN, PRN Line Flush, Start date: 05/29/11 19:09:00, Duration: 30 day, Stop date: 06/28/11 19:08:00 IVP No Longer Active Enriquez 05/30/2011 [facility] insulin regular human recombinant 100 units/mL injectable solution 7 unit, 0.07 mL, Route: SUB-Q, Drug form: SOLN, PRN, PRN Abnormal Lab Result, Start date: 05/29/11 19:09:00, Duration: 30 day, Stop date: 06/28/11 19:08:00 SUB-Q No Longer Active Enriquez 05/30/2011 [facility] Sublimaze 50 microgram, 1 mL, Route: IVP, Drug form: INJ, Q1H, PRN Pain, Start date: 05/29/11 19:07:00, Duration: 30 day, Stop date: 06/28/11 19:06:00 IVP No Longer Active Abdunnur 05/30/2011 [facility] Dextrose 50% Syringe 6.25 gm, 12.5 mL, Route: IVP, Drug Form: INJ, PRN, PRN Abnormal Lab Result, Start date: 05/29/11 19:03:00, Duration: 30 day, Stop date: 06/28/11 19:02:00 IVP No Longer Active Enriquez 05/30/2011 [facility] acetaminophen-hydrocodone 325 mg-5 mg oral tablet 1 tab, Route: PO, Drug Form: TAB, Q6H, PRN Pain, Start date: 05/29/11 19:02:00, Duration: 30 day, Stop date: 06/28/11 19:01:00 PO No Longer Active Tarango 05/30/2011 [facility] acetaminophen-hydrocodone 325 mg-5 mg oral tablet 2 tab, Route: PO, Drug Form: TAB, Q4H, PRN Pain, Start date: 05/29/11 17:26:00, Duration: 30 day, Stop date: 06/28/11 17:25:00 PO No Longer Active Tarango 05/29/2011 [facility] heparin 5000 units/mL injectable solution 5,000 unit, 1 mL, Route: SUB-Q, Drug form: INJ, Q8H, Start date: 05/29/11 17:00:00, Duration: 30 day, Stop date: 06/28/11 16:00:00 SUB-Q No Longer Active Esquenazi Sampson 05/29/2011 [facility] Tylenol 650 mg, 2 tab, Route: PO, Drug form: TAB, Q6H, PRN Pain, Start date: 05/29/11 13:29:00, Duration: 30 day, Stop date: 06/28/11 13:28:00 [facility] Dilantin 200 mg, 2 cap, Route: PO, Drug form: ERCAP, BID, Start date: 05/29/11 9:00:00, Duration: 30 day, Stop date: 06/27/11 17:00:00 PO No Longer Active [facility] 05/29/2011 [facility] calcium gluconate 3,000 mg, 30 mL, Route: IVPB, ONCE, Start date: 05/29/11 7:30:00, Stop date: 05/29/11 7:30:00 IVPB No Longer Active Tarango 05/29/2011 [facility] potassium chloride 20 mEq, 100 mL, Route: IVPB, Q2H, Start date: 05/29/11 5:30:00, Duration: 3 doses or times, Stop date: 05/29/11 8:00:00 IVPB No Longer Active Tarango 05/29/2011 [facility] Ultram 50 mg oral tablet 50 mg, 1 tab, Route: PO, Drug form: TAB, ONCE, Priority: STAT, Start date: 05/29/11 3:58:00, Stop date: 05/29/11 3:58:00 PO No Longer Active Angelique 05/29/2011 [facility] Saline Flush 0.9% 5 ml, Route: IVP, Drug Form: INJ, Q12H, Start date: 05/28/11 21:00:00, Duration: 30 day, Stop date: 06/27/11 9:00:00 IVP No Longer Active Enriquez 05/29/2011 [facility] Pepcid 20 mg oral tablet 20 mg, 1 tab, Route: PO, Drug form: TAB, Q12H, Start date: 05/28/11 21:00:00, Duration: 30 day, Stop date: 06/27/11 9:00:00 [facility] senna 8.6 mg oral tablet 8.6 mg, 1 tab, Route: PO, Drug Form: TAB, Bedtime, Start date: 05/28/11 21:00:00, Duration: 30 day, Stop date: 06/26/11 21:00:00 [facility] magnesium sulfate 2 gm, 50 mL, Route: IVPB, Drug form: INJ, Q2H, Start date: 05/28/11 20:30:00, Duration: 2 doses or times, Stop date: 05/28/11 22:30:00 IVPB No Longer Active Tarango 05/29/2011 [facility] magnesium sulfate 4 gm, 50 mL, IVPB, 50 ml/hr, ONCE, Start date: 05/28/11 19:30:00, 50 ml IVPB No Longer Active Tarango 05/29/2011 [facility] calcium gluconate 3,000 mg, 30 mL, Route: IVPB, ONCE, Start date: 05/28/11 19:30:00, Stop date: 05/28/11 19:30:00 IVPB No Longer Active Tarango 05/29/2011 [facility] Zofran 4 mg, 2 mL, Route: IVP, Drug form: INJ, Q8H, PRN Nausea, Start date: 05/28/11 18:39:00, Stop date: 06/27/11 18:38:00 IVP No Longer Active Kenneth 05/29/2011 [facility] Zofran 8 mg, 4 mL, Route: IVP, Drug form: INJ, ONCE, Start date: 05/28/11 18:38:00, Stop date: 05/28/11 18:38:00 IVP No Longer Active Kenneth 05/29/2011 [facility] dexamethasone 4 mg, 1 mL, Route: IVP, Drug form: INJ, Q6H, Start date: 05/28/11 18:00:00, Duration: 4 day, Stop date: 06/01/11 12:00:00 [facility]2011 [facility] docusate sodium 100 mg oral capsule 100 mg, 1 cap, Route: PO, Drug form: CAP, BID, Start date: 05/28/11 17:00:00, Duration: 30 day, Stop date: 06/27/11 9:00:00 [facility] naloxone 0.4 mg, Route: IVP, ONCE, Start date: 05/28/11 16:37:00, Stop date: 05/28/11 16:37:00 IVP No Longer Active Enriquez 2011 [facility] insulin regular human recombinant 100 units/mL injectable solution 5 unit, 0.05 mL, Route: SUB-Q, Drug form: SOLN, PRN, PRN Abnormal Lab Result, Start date: 05/28/11 16:37:00, Duration: 30 day, Stop date: 06/27/11 16:36:00 SUB-Q No Longer Active Enriquez 2011 [facility] Dextrose 50% Syringe 25 gm, 50 mL, Route: IVP, Drug Form: INJ, PRN, PRN Abnormal Lab Result, Start date: 05/28/11 16:37:00, Duration: 30 day, Stop date: 06/27/11 16:36:00 IVP No Longer Active Enriquez 2011 [facility] Saline Flush 0.9% 5 ml, Route: IVP, Drug Form: INJ, PRN, PRN Line Flush, Start date: 05/28/11 16:37:00, Duration: 30 day, Stop date: 06/27/11 16:36:00 IVP No Longer Active Enriquez 2011 [facility] Ativan 2 mg, 1 mL, Route: IV, Drug form: INJ, PRN, PRN Other -See Comment, Start date: 05/28/11 16:00:00, Duration: 2 doses or times, Stop date: Limited # of times IV No Longer Active Lance 2011 [facility] Ancef 2 gm, Route: IVPB, Q8H, Start date: 05/28/11 16:00:00, Duration: 3 doses or times, Stop date: 05/29/11 8:00:00 IVPB No Longer Active Abdunnur 2011 [facility] potassium chloride 20 mEq, 100 mL, Route: IVPB, Drug form: INJ, Q2H, Total dose=40 mEq, Start date: 05/28/11 16:00:00, Duration: 2 doses or times, Stop date: 05/28/11 18:00:00 IVPB No Longer Active Lance 2011 [facility] Ativan 2 mg, 1 mL, Route: IV, Drug form: INJ, PRN, PRN Other -See Comment, Start date: 05/28/11 15:58:00, Duration: 2 doses or times, Stop date: Limited # of times IV No Longer Active Lance 2011 [facility] lacosamide 300 mg, Route: IV, ONCE, Start date: 05/28/11 15:20:00, Stop date: 05/28/11 15:20:00 IV No Longer Active Lance 2011 [facility] fosphenytoin 200 mg, 4 mL, Route: IVPB, Drug form: INJ, ONCE, Priority: STAT, Start date: 05/28/11 15:18:00, Stop date: 05/28/11 15:18:00 IVPB No Longer Active Lance 2011 [facility] LORAzepam 1 mg, 0.5 mL, Route: IV, Drug form: INJ, ONCE, x2, Start date: 05/28/11 15:18:00, Stop date: 05/28/11 15:18:00 IV No Longer Active Lance 2011 [facility] fosphenytoin 500 mg, Route: IVPB, ONCE, Priority: STAT, Start date: 05/28/11 14:49:00, Stop date: 05/28/11 14:49:00 IVPB No Longer Active Lance 2011 [facility] Demerol HCl 12.5 mg, Route: IVP, ONCE, Start date: 05/28/11 14:37:00, Stop date: 05/28/11 14:37:00 IVP No Longer Active Zaafran 2011 [facility] Ofirmev 1,000 mg, Route: IV, Drug form: INJ, ONCE, PRN Pain, for > or=50 kg, Start date: 05/28/11 14:00:00 IV No Longer Active Zaafran 2011 [facility] cefazolin 2 gm, Route: IVPB, Drug form: INJ, ABXQ8H, Start date: 05/28/11 14:00:00, Stop date: 06/27/11 6:00:00 IVPB No Longer Active Abdunnur 2011 [facility] fentanyl 50 microgram, 1 mL, Route: IVP, Drug form: INJ, Q1H, PRN Pain, Start date: 05/28/11 13:47:00, Stop date: 06/27/11 13:46:00 IVP No Longer Active Abdunnur 2011 [facility] fentanyl 50 microgram, Route: IVP, ONCE, Priority: STAT, Start date: 05/28/11 13:43:00, Stop date: 05/28/11 13:43:00 IVP No Longer Active Abdunnur 2011 [facility] cefazolin 2 gm, Route: IVPB, ONCE, Start date: 05/28/11 8:44:00, Duration: 1 doses or times, Stop date: 05/28/11 8:44:00 IVPB No Longer Active Lance 2011 [facility] Sodium Chloride 0.9% IV 1,000 mL 1,000 mL, Rate: 100 ml/hr, Infuse over: 10 hr, Route: IV, Total Volume: 1,000, Start date: 05/27/11 15:00:00, Duration: 30 day, Stop date: 06/26/11 14:59:00 IV No Longer Active Hata 05/27/2011 [facility] Skelaxin 800 mg, 1 tab, Route: PO, Drug form: TAB, TID, PRN See Nurse's Notes, Start date: 05/27/11 11:32:00, Duration: 30 day, Stop date: 06/26/11 11:31:00 PO No Longer Active Tarango 05/27/2011 [facility] acetaminophen-hydrocodone 325 mg-5 mg oral tablet 1 tab, Route: PO, Drug Form: TAB, Q6H, PRN Pain, Start date: 05/27/11 11:32:00, Duration: 30 day, Stop date: 06/26/11 11:31:00 PO No Longer Active Tarango 05/27/2011 [facility] Saxagliptin 5 mg tablet Saxagliptin 5 mg tablet, 1 tab, Drug form: MISC, Route: PO, Daily, 05/27/11 9:00:00, Duration: 30 doses or times, Stop date: 06/25/11 9:00:00 PO No Longer Active Tarango 05/27/2011 [facility] Glucophage 1000 mg oral tablet 2,000 mg, 2 tab, Route: PO, Drug form: TAB, QAM, Start date: 05/27/11 9:00:00, Duration: 30 day, Stop date: 06/25/11 9:00:00 PO No Longer Active Pioneer 05/27/2011 [facility] Zonegran 200 mg, 2 cap, Route: PO, Drug form: CAP, Q12H, Start date: 05/26/11 21:00:00, Duration: 30 day, Stop date: 06/25/11 9:00:00 PO No Longer Active DeLange 05/27/2011 [facility] Zonegran 200 mg, 2 cap, Route: PO, Drug form: CAP, Bedtime, Start date: 05/26/11 21:00:00, Duration: 30 day, Stop date: 06/24/11 21:00:00 PO No Longer Active Benavidez 05/27/2011 [facility] Celexa 30 mg, 1.5 tab, Route: PO, Drug form: TAB, Daily, Start date: 05/26/11 18:30:00, Duration: 30 day, Stop date: 06/25/11 9:00:00 PO No Longer Active Tarango 05/27/2011 [facility] Valium 2 mg, 1 tab, Route: PO, Drug form: TAB, TID, PRN Anxiety, Start date: 05/26/11 18:02:00, Duration: 30 day, Stop date: 06/25/11 18:01:00 PO No Longer Active Tarango 05/27/2011 [facility] Vimpat 100 mg, 1 tab, Route: PO, Drug form: TAB, BID, Start date: 05/26/11 17:00:00, Duration: 30 day, Stop date: 06/25/11 9:00:00 PO No Longer Active Tarango 05/26/2011 [facility] atenolol 50 mg oral tablet 50 mg, 1 tab, Route: PO, Drug form: TAB, BID, Start date: 05/26/11 17:00:00, Duration: 30 day, Stop date: 06/25/11 9:00:00 [facility] Florinef Acetate 0.1 mg, 1 tab, Route: PO, Drug form: TAB, TID, Start date: 05/26/11 17:00:00, Duration: 30 day, Stop date: 06/25/11 13:00:00 PO No Longer Active Tarango 05/26/2011 [facility] Antivert 25 mg, 1 tab, Route: PO, Drug form: TAB, TID, Start date: 05/26/11 17:00:00, Duration: 30 day, Stop date: 06/25/11 13:00:00 PO No Longer Active Tarango 05/26/2011 [facility] Humulin R 100 units/mL injectable solution 5 unit, 0.05 mL, Route: SUB-Q, Drug form: SOLN, Sliding Scale, PRN Blood Glucose Results, Start date: 05/26/11 16:58:00, Duration: 30 day, Stop date: 06/25/11 16:57:00 SUB-Q No Longer Active Tarango 05/26/2011 [facility] Dextrose 50% in Water IV 25 gm, 50 mL, Route: IV, Drug Form: INJ, PRN, PRN Blood Glucose Results, Start date: 05/26/11 16:57:00, Duration: 30 day, Stop date: 06/25/11 16:56:00 IV No Longer Active Tarango 05/26/2011 [facility] Saxagliptin 5 mg tablet Saxagliptin 5 mg tablet, 1 tab, Drug form: MISC, Route: PO, ONCE, 05/26/11 16:03:00, Stop date: 05/26/11 16:03:00 PO No Longer Active Tarango 05/26/2011 [facility] Glucophage 1000 mg oral tablet 2,000 mg, 2 tab, Route: PO, Drug form: TAB, ONCE, Start date: 05/26/11 15:54:00, Stop date: 05/26/11 15:54:00 PO No Longer Active Tarango 05/26/2011 [facility] Vimpat 150 mg, 3 tab, Route: PO, Drug form: TAB, BID, Start date: 05/26/11 11:45:00, Duration: 30 day, Stop date: 06/25/11 9:00:00 PO No Longer Active Hata 05/26/2011 [facility] Vimpat 150 mg, 1 tab, Route: PO, Drug form: TAB, BID, Start date: 05/26/11 9:00:00, Duration: 30 day, Stop date: 06/24/11 17:00:00 PO No Longer Active Benavidez 05/26/2011 [facility] LORAzepam 2 mg, Route: IVP, ONCE, Priority: STAT, Start date: 05/26/11 8:00:00, Stop date: 05/26/11 8:00:00 IVP No Longer Active Worthy 05/26/2011 [facility] LORAzepam 1 mg, 0.5 mL, Route: IVP, Drug form: INJ, Q15Min, PRN Seizure, Start date: 05/26/11 7:19:00, Duration: 30 day, Stop date: 06/25/11 7:18:00 IVP No Longer Active Lance 05/26/2011 [facility] Ativan 2 mg, 1 mL, Route: IVP, Drug form: INJ, ONCE, Start date: 05/26/11 7:15:00, Stop date: 05/26/11 7:15:00 IVP No Longer Active Worthy 05/26/2011 [facility] Ativan 2 mg, 1 mL, Route: IVP, Drug form: INJ, ONCE, PRN Anxiety, Start date: 05/26/11 7:11:00 IVP No Longer Active Garcia 05/26/2011 [facility] Zonegran 200 mg, 2 cap, Route: PO, Drug form: CAP, Q12H, Start date: 03/19/11 22:30:00, Duration: 30 day, Stop date: 04/18/11 21:00:00 PO No Longer Active DeLange 03/20/2011 [facility] Vimpat 50 mg, 1 tab, Route: PO, Drug form: TAB, Q12H, Start date: 03/19/11 22:00:00, Duration: 30 day, Stop date: 04/18/11 21:00:00 PO No Longer Active DeLange 03/20/2011 [facility] Celexa 20 mg, 1 tab, Route: PO, Drug form: TAB, Daily, Start date: 03/19/11 9:00:00, Duration: 30 day, Stop date: 04/17/11 9:00:00 PO No Longer Active Kalamangalam 03/19/2011 [facility] Ativan 2 mg, 1 mL, Route: IVP, Drug form: INJ, ONCALL, Start date: 03/18/11 21:00:00, Duration: 30 day, Stop date: 04/17/11 20:59:00 IVP No Longer Active Kalamangalam 03/19/2011 [facility] ketorolac 30 mg/mL injectable solution 30 mg, 1 mL, Route: IV, Drug form: INJ, ONCE, Start date: 03/18/11 17:00:00, Stop date: 03/18/11 17:00:00 IV No Longer Active DeLange 03/18/2011 [facility] Benadryl 50 mg, 2 cap, Route: PO, Drug form: CAP, ONCE, Start date: 03/18/11 17:00:00, Stop date: 03/18/11 17:00:00 PO No Longer Active DeLange 03/18/2011 [facility] Reglan 10 mg, 2 mL, Route: IV, Drug form: INJ, ONCE, Start date: 03/18/11 17:00:00, Stop date: 03/18/11 17:00:00 IV No Longer Active DeLange 03/18/2011 [facility] ethanol 30 mL, Route: PO, Drug Form: LIQ, ONCE, Start date: 03/17/11 7:00:00, Stop date: 03/17/11 7:00:00 PO No Longer Active [place] 03/17/2011 [facility] tramadol 50 mg oral tablet 100 mg, 2 tab, Route: PO, Drug form: TAB, ONCE, Start date: 03/17/11 7:00:00, Stop date: 03/17/11 7:00:00 PO No Longer Active [place] 03/17/2011 [facility] Benadryl 50 mg, 1 cap, Route: PO, Drug form: CAP, ONCE, Start date: 03/17/11 7:00:00, Stop date: 03/17/11 7:00:00 PO No Longer Active [place] 03/17/2011 [facility] tramadol 50 mg oral tablet 100 mg, 2 tab, Route: PO, Drug form: TAB, ONCE, Start date: 03/16/11 6:00:00, Stop date: 03/16/11 6:00:00 PO No Longer Active Kalamangalam 03/16/2011 [facility] ethanol 1 ea, Route: PO, Drug Form: LIQ, ONCE, Start date: 03/16/11 6:00:00, Stop date: 03/16/11 6:00:00 PO No Longer Active Kalamangalam 03/16/2011 [facility] Benadryl 50 mg, 2 cap, Route: PO, Drug form: CAP, ONCE, Start date: 03/16/11 6:00:00, Stop date: 03/16/11 6:00:00 PO No Longer Active Kalamangalam 03/16/2011 [facility] Dulcolax Laxative 10 mg, 2 tab, Route: PO, Drug form: ECTAB, Daily, PRN Constipation, Start date: 03/15/11 18:19:00, Duration: 30 day, Stop date: 04/14/11 18:18:00 PO No Longer Active DeLange 03/16/2011 [facility] tramadol 50 mg oral tablet 100 mg, 2 tab, Route: PO, Drug form: TAB, Q6H, PRN Pain, Start date: 03/15/11 11:04:00, Duration: 30 day, Stop date: 04/14/11 11:03:00 PO No Longer Active Kalamangalam 03/15/2011 [facility] ethanol 1 ea, Route: PO, Drug Form: LIQ, ONCE, Start date: 03/14/11 13:00:00, Stop date: 03/14/11 13:00:00 PO No Longer Active Kalamangalam 03/14/2011 [facility] Benadryl 50 mg, 2 cap, Route: PO, Drug form: CAP, ONCE, Start date: 03/14/11 13:00:00, Stop date: 03/14/11 13:00:00 PO No Longer Active Kalamangalam 03/14/2011 [facility] ketorolac 30 mg/mL injectable solution 15 mg, 1 mL, Route: IV, Drug form: INJ, Q6H, PRN Pain, Start date: 03/13/11 21:21:00, Duration: 24 hr, Stop date: 03/14/11 21:20:00 IV No Longer Active Enriquez 03/14/2011 [facility] Zonegran 150 mg, 3 cap, Route: PO, Drug form: CAP, Q12H, Start date: 03/12/11 17:00:00, Duration: 30 day, Stop date: 04/11/11 9:00:00 PO No Longer Active Kalamangalam 03/12/2011 [facility] acetaminophen-hydrocodone 2 tab, Route: PO, Drug Form: TAB, Q4H, PRN Pain, Start date: 03/11/11 18:10:00, Duration: 30 day, Stop date: 04/10/11 18:09:00 PO No Longer Active DeLange 03/12/2011 [facility] acetaminophen-hydrocodone 1 tab, Route: PO, Drug Form: TAB, Q4H, PRN Pain, Start date: 03/11/11 18:09:00, Duration: 30 day, Stop date: 04/10/11 18:08:00 PO No Longer Active DeLange 03/12/2011 [facility] Lantus SoloStar 18-20 units (slidingscale) Subcutaneous Active 100 Subcutaneous daily [facility] Estroven Weight Management not defined Orally Active Orally [facility] Duloxetine HCl 2 capsule Orally Active 60 MG Orally Once a day at bedtime [facility] Escitalopram Oxalate 1 tablet Orally Active 20 MG Orally Once a day [facility] Clonazepam 1 tablet Orally Active 0.5 MG Orally Twice a day [facility] Mobic 1 tablet Orally Active 15 Orally Once a day [facility] Lorazepam 1 tablet Orally Active 1 MG Orally NEEDED [facility] Melatonin 4 tablets Orally Active 10 MG Orally daily as needed [facility] Gabapentin TAKE ONE CAPSULE BY MOUTH THREE TIMES DAILY NA Active 300 [facility] Midodrine HCl 1 tablet Orally Active 2.5 MG Orally Three times a day [facility] OneTouch Ultra Test USE DIRECTED THREE TIMES DAILY NA Active 0 [facility] Zonisamide 4 CAPSULE ONCE A DAY AT BEDTIME ORALLY 90 DAYS NA Active 100 MG [facility] Vimpat 2 tablet Orally Active 100 MG Orally Twice a day [facility] Sudafed 12 Hour 1 tablet as needed Orally Active 120 MG Orally every 12 hrs [facility] Zofran 1 tablet Orally Active 4 mg Orally Once a day [facility] Unisom PM Pain not defined Orally Active 50-325 MG Orally [facility] One Daily For Women not defined Orally Active Orally [facility] Lancets as directed verio Active . verio three times a day (tid) [facility] Diclofenac Sodium TAKE 1 TABLET BY MOUTH TWICE DAILY NA Active 75 [facility] Tradjenta TAKE 1 TABLET BY MOUTH ONCE DAILY NA Active 5 [facility] Victoza 1.2 mg Subcutaneous Active 18 MG/3ML Subcutaneous Once a day [facility] Humalog KwikPen inject 20 units (slidingscale) Subcutaneous Active 100 UNIT/ML Subcutaneous three times a day (tid) [facility] Cymbalta 1 capsule Orally Active 60 MG Orally Once a day [facility] Lyrica 1 capsule Orally Active 225 MG Orally Twice a day [facility] Tresiba FlexTouch 40 units Subcutaneous Active 200 UNIT/ML Subcutaneous once a day [facility] Ondansetron 1 tablet on the tongue and allow to dissolve Orally Active 4 MG Orally every 8 hrs [facility] Duloxetine HCl 2 capsule Orally Active 60 MG Orally Once a day at bedtime [facility] Invokana 1 tablet by mouth Active 300 MG by mouth Once a day [facility] Fanapt 1 tablet Orally Active 2 MG Orally Twice a day [facility] Meclizine HCl 1 tablet as needed Orally Active 25 MG Orally Once a day prn [facility] Propranolol HCl 1 tablet Orally Active 20 mg Orally Twice a day [facility] Diclofenac Sodium 1 tablet Orally Active 75 MG Orally Twice a day [facility] Meclizine HCl 1 tablet as needed Orally Active 25 MG Orally Once a day [facility] Melatonin 4 tablets Orally Active 10 MG Orally daily as needed [facility] Clonazepam TAKE 1 TABLET BY MOUTH TWICE DAILY NA Active 0.5 [facility] Meloxicam take 1 tablet once a day orally Orally Active 15 Orally daily [facility] Invokana 1 tablet by mouth Active 300 MG by mouth Once a day [facility] Midodrine HCl TAKE 1 TABLET BY MOUTH THREE TIMES DAILY NA Active 2.5 [facility] One Daily For Women not defined Orally Active Orally [facility] Sudafed 12 Hour 1 tablet as needed Orally Active 120 MG Orally every 12 hrs [facility] Fanapt 1 tablet Orally Active 2 MG Orally Twice a day [facility] Lancets as directed verio Active . verio three times a day (tid) [facility] Vimpat TAKE 2 TABLETS BY MOUTH TWICE DAILY NA Active 100 [facility] Humalog KwikPen inject 20 units (slidingscale) Subcutaneous Active 100 UNIT/ML Subcutaneous three times a day (tid) [facility] Tresiba FlexTouch 40 units Subcutaneous Active 200 UNIT/ML Subcutaneous once a day [facility] Diclofenac Sodium 1 tablet Orally Active 75 MG Orally Twice a day [facility] Estroven Weight Management not defined Orally Active Orally [facility] Unisom PM Pain not defined Orally Active 50-325 MG Orally [facility] Ondansetron 1 tablet on the tongue and allow to dissolve Orally Active 4 MG Orally every 8 hrs [facility] Lorazepam 1 tablet Orally Active 1 MG Orally NEEDED [facility] Escitalopram Oxalate 1 tablet Orally Active 20 MG Orally Once a day [facility] Lyrica 1 capsule Orally Active 225 MG Orally Twice a day [facility] Clonazepam 1 tablet Orally Active 0.5 MG Orally Twice a day [facility] Meclizine HCl 1 tablet as needed Orally Active 25 MG Orally Once a day [facility] Tradjenta take 1 tablet by mouth once a day Orally Active 5 MG Orally Once a day [facility] Meloxicam take 1 tablet once a day orally Orally Active 15 MG Orally daily [facility] Zonisamide 4 capsule Orally Active 100 MG Orally Once a day at bedtime [facility] Fludrocortisone Acetate 2 tablet Orally Active 0.1 MG Orally daily [facility] Propranolol HCl 1 tablet Orally Active 20 mg Orally Twice a day [facility] Humalog KwikPen INJECT 20 UNITS BEFORE MEALS subcutaneously Active 100 subcutaneously three times a day (tid) [facility] Allergies, Adverse Reactions, Alerts Substance Category Reaction Severity Reaction type Status Date Reported Comments Source morphine<sup>1, 2</sup> Assertion Drug allergy Active 04/18/2011 Data migrated from [employer] on 08/25/14. Originally documented as MORPHINE. unknown [facility] Fanapt Adverse Reaction Info Not Available Adverse Reaction Active 12/18/2016 [facility] Morphine Sulfate Adverse Reaction Info Not Available Adverse Reaction Active 12/18/2016 [facility] Lyrica Adverse Reaction Info Not Available Adverse Reaction Active 12/18/2016 [facility] januvia Adverse Reaction itching Adverse Reaction Active 12/18/2016 [facility] Keflex Adverse Reaction Info Not Available Adverse Reaction Active 12/18/2016 [facility] morphine Assertion Drug allergy Active [facility] Immunizations Immunization Date Given Site Status Last Updated Comments Source pneumococcal 23-valent vaccine 07/24/2011 completed [id number] KEISHA Bergman,[facility] pneumococcal 23-valent vaccine 07/24/2011 Right deltoid completed [id number] [facility] Results Order Name Results Value Reference Range Date Interpretation Comments Source URINE CHEM U Preg Negative (10/18/16 5:52 AM) Negative 10/18/2016 [facility] BLOOD BANK RESULTS Antibody Scrn Negative (10/11/16 3:24 PM) 10/11/2016 [facility] BLOOD BANK RESULTS ABO/Rh O POS 10/11/2016 [facility] CHEM PANEL eGFR 77 mL/min/1.73m2 10/11/2016 Result Comment: The eGFR is calculated using the CKD-EPI formula. In most young, healthy individuals the eGFR will be >90 mL/min/1.73m2. The eGFR declines with age. An eGFR of 60-89 may be normal in some populations, particularly the elderly, for whom the CKD-EPI formula has not been extensively validated. Use of the eGFR is not recommended in the following populations: Individuals with unstable creatinine concentrations, including patients and those with serious co-morbid conditions. Patients with extremes in muscle mass or diet. The data above are obtained from the National Kidney Disease Education Program (NKDEP) which additionally recommends that when the eGFR is used in patients with extremes of body mass index for purposes of drug dosing, the eGFR should be multiplied by the estimated BMI. [facility] CHEM PANEL CO2 27 meq/L 24 - 32 10/11/2016 [facility] CHEM PANEL Calcium Lvl 10.1 mg/dL 8.5 - 10.5 10/11/2016 [facility] CHEM PANEL Potassium Lvl 4.5 meq/L 3.5 - 5.1 10/11/2016 [facility] CHEM PANEL Chloride Lvl 100 meq/L 95 - 109 10/11/2016 [facility] CHEM PANEL Sodium Lvl 135 meq/L 135 - 145 10/11/2016 [facility] CHEM PANEL Creatinine Lvl 0.90 mg/dL 0.50 - 1.40 10/11/2016 [facility] CHEM PANEL BUN 18 mg/dL 7 - 22 10/11/2016 [facility] CHEM PANEL Glucose Lvl 364 mg/dL 70 - 99 10/11/2016 [facility] CHEM PANEL AGAP 12.5 meq/L 10.0 - 20.0 10/11/2016 [facility] ENDOCRINOLOGY S Preg Negative *NA* (10/11/16 3:24 PM) Negative 10/11/2016 [facility] HEMATOLOGY Segs-Bands # 3.3 K/CMM 1.5 - 8.1 10/11/2016 [facility] HEMATOLOGY Basophils 0.3 % 0.0 - 1.0 10/11/2016 [facility] HEMATOLOGY Monocytes # 0.2 K/CMM 0.0 - 0.8 10/11/2016 [facility] HEMATOLOGY Lymphocytes # 1.5 K/CMM 1.0 - 5.5 10/11/2016 [facility] HEMATOLOGY Lymphocytes 29.2 % 20.0 - 40.0 10/11/2016 [facility] HEMATOLOGY Segs 65.9 % 45.0 - 75.0 10/11/2016 [facility] Eosinophils 0.1 % 0.0 - 4.0 10/11/2016 [facility] Monocytes 4.5 % 2.0 - 12.0 10/11/2016 [facility] HEMATOLOGY Eosinophils # 0.0 K/CMM 0.0 - 0.5 10/11/2016 [facility] HEMATOLOGY Basophils # 0.0 K/CMM 0.0 - 0.2 10/11/2016 [facility] INR 0.96 0.85 - 1.17 10/11/2016 [facility] PT 13.0 s 12.0 - 14.7 10/11/2016 [facility] PTT 31.1 s 22.9 - 35.8 10/11/2016 [facility] MCHC 33.6 g/dL 32.0 - 36.0 10/11/2016 [facility] RDW 12.7 % 11.5 - 14.5 10/11/2016 [facility] Platelet 177 K/CMM 133 - 450 10/11/2016 [facility] Hct 44.9 % 36.0 - 48.0 10/11/2016 [facility] MCV 89.5 fL 80.0 - 98.0 10/11/2016 [facility] MCH 30.1 pg 27.0 - 31.0 10/11/2016 [facility] MPV 9.1 fL 7.4 - 10.4 10/11/2016 [facility] RBC 5.02 M/CMM 4.20 - 5.40 10/11/2016 [facility] WBC 5.0 K/CMM 3.7 - 10.4 10/11/2016 [facility] Hgb 15.1 g/dL 12.0 - 16.0 10/11/2016 [facility] IMMUNOLOGY HIV Ag/Ab 4th Gen Negative *NA* (10/11/16 3:24 PM) Negative 10/11/2016 [facility] SPECIAL CHEMISTRY Hgb A1C 8.5 % <=5.6 % 10/11/2016 [facility] Knee 1-2 Views unilateral DX Knee 1-2 Views unilateral DX EXAM: XR RIGHT KNEE 2 VIEWS DATE: 09/11/2016 3:28 PM CDT INDICATION: Reason for exam:arthritis. no trauma. pain in - Reason for exam:arthritis. no trauma. pain in COMPARISON: None available TECHNIQUE: AP, lateral radiographs of the right knee FINDINGS: No fracture, periosteal reaction, or erosions identified. Nonaggressive lucent bone lesion with calcified chondroid matrix present within the distal right femoral diaphysis measuring 1.5 cm compatible with an enchondroma. No joint space narrowing identified. Minimal bilateral patellofemoral compartment osteophytes noted. No joint effusion identified. Soft tissues are unremarkable. IMPRESSION: Minimal lateral and patellofemoral compartment osteoarthrosis. 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 09/11/2016 - - Read by: Moises Henson MD Dictated Date/time: 09/11/16 16:07 Electronically Signed by: Moises Henson MD 09/11/16 16:09 FINAL REPORT [facility] CHEM PANEL eGFR 106 mL/min/1.73m2 11/18/2013 1Result Comment: The eGFR is calculated using the CKD-EPI formula. In most young, healthy individuals the eGFR will be >90 mL/min/1.73m2. The eGFR declines with age. An eGFR of 60-89 may be normal in some populations, particularly the elderly, for whom the CKD-EPI formula has not been extensively validated. Use of the eGFR is not recommended in the following populations: Individuals with unstable creatinine concentrations, including patients and those with serious co-morbid conditions. Patients with extremes in muscle mass or diet. The data above are obtained from the National Kidney Disease Education Program (NKDEP) which additionally recommends that when the eGFR is used in patients with extremes of body mass index for purposes of drug dosing, the eGFR should be multiplied by the estimated BMI. [facility] CHEM PANEL BUN 16 mg/dL 7 - 22 11/18/2013 [facility] CHEM PANEL Glucose Lvl 178 mg/dL 70 - 99 11/18/2013 4Interpretive Data: Adult reference range values reflect the clinical guidelines of the [place] [employer]. [facility] CHEM PANEL Calcium Lvl 8.7 mg/dL 8.5 - 10.5 11/18/2013 [facility] CHEM PANEL Potassium Lvl 4.1 meq/L 3.5 - 5.1 11/18/2013 [facility] CHEM PANEL Sodium Lvl 141 meq/L 135 - 145 11/18/2013 [facility] CHEM PANEL Creatinine Lvl 0.7 mg/dL 0.5 - 1.4 11/18/2013 [facility] CHEM PANEL CO2 25 meq/L 24 - 32 11/18/2013 [facility] CHEM PANEL Chloride Lvl 107 meq/L 95 - 109 11/18/2013 [facility] CHEM PANEL AGAP 13.1 meq/L 10.0 - 20.0 11/18/2013 [facility] LIPIDS VLDL 26 11/18/2013 [facility] LIPIDS LDL (Calculated) 146 mg/dL <=99 mg/dL 11/18/2013 [facility] LIPIDS Trig 130 mg/dL <=149 mg/dL 11/18/2013 [facility] LIPIDS Chol 241 mg/dL <=199 mg/dL 11/18/2013 [facility] LIPIDS HDL 69 mg/dL >=61 mg/dL 11/18/2013 [facility] LIPIDS CHD Risk 3.49 3.90 - 5.80 11/18/2013 [facility] SPECIAL CHEMISTRY Hgb A1C 10.7 % <=5.6 % 11/18/2013 [facility] CHEM PANEL AST 18 unit/L 0 - 37 11/18/2013 [facility] CHEM PANEL eGFR 55 mL/min/1.73m2 11/18/2013 2Result Comment: The eGFR is calculated using the CKD-EPI formula. In most young, healthy individuals the eGFR will be >90 mL/min/1.73m2. The eGFR declines with age. An eGFR of 60-89 may be normal in some populations, particularly the elderly, for whom the CKD-EPI formula has not been extensively validated. Use of the eGFR is not recommended in the following populations: Individuals with unstable creatinine concentrations, including patients and those with serious co-morbid conditions. Patients with extremes in muscle mass or diet. The data above are obtained from the National Kidney Disease Education Program (NKDEP) which additionally recommends that when the eGFR is used in patients with extremes of body mass index for purposes of drug dosing, the eGFR should be multiplied by the estimated BMI. [facility] CHEM PANEL Glucose Lvl 464 mg/dL 70 - 99 11/18/2013 6Interpretive Data: Adult reference range values reflect the clinical guidelines of the [place] [employer]. [facility] CHEM PANEL A/G Ratio 1.4 0.7 - 1.6 11/18/2013 [facility] CHEM PANEL Globulin 2.5 g/dL 2.0 - 4.0 11/18/2013 [facility] CHEM PANEL Potassium Lvl 4.1 meq/L 3.5 - 5.1 11/18/2013 [facility] CHEM PANEL Chloride Lvl 101 meq/L 95 - 109 11/18/2013 [facility] CHEM PANEL BUN 20 mg/dL 7 - 22 11/18/2013 [facility] CHEM PANEL Creatinine Lvl 1.2 mg/dL 0.5 - 1.4 11/18/2013 [facility] CHEM PANEL Sodium Lvl 140 meq/L 135 - 145 11/18/2013 [facility] CHEM PANEL Albumin Lvl 3.6 g/dL 3.5 - 5.0 11/18/2013 [facility] CHEM PANEL Total Protein 6.1 g/dL 6.4 - 8.4 11/18/2013 [facility] CHEM PANEL ALT 20 unit/L 0 - 65 11/18/2013 [facility] CHEM PANEL B/C Ratio 17 6 - 25 11/18/2013 [facility] CHEM PANEL CO2 29 meq/L 24 - 32 11/18/2013 [facility] CHEM PANEL AGAP 14.1 meq/L 10.0 - 20.0 11/18/2013 [facility] CHEM PANEL Calcium Lvl 8.5 mg/dL 8.5 - 10.5 11/18/2013 [facility] CHEM PANEL Alk Phos 210 unit/L 39 - 136 11/18/2013 [facility] CHEM PANEL Bili Total 0.3 mg/dL 0.2 - 1.3 11/18/2013 [facility] CHEM PANEL Phosphorus 4.4 mg/dL 2.5 - 4.5 11/18/2013 [facility] URINE AND STOOL UA Blood Negative (11/17/13 11:10 PM) Negative 11/18/2013 [facility] URINE AND STOOL UA Bili Moderate *ABN* (11/17/13 11:10 PM) Negative 11/18/2013 [facility] URINE AND STOOL UA Ketones Negative mg/dL Negative mg/dL 11/18/2013 [facility] URINE AND STOOL UA Leuk Est Negative (11/17/13 11:10 PM) Negative 11/18/2013 [facility] URINE AND STOOL UA Nitrite Negative (11/17/13 11:10 PM) Negative 11/18/2013 [facility] URINE AND STOOL UA Urobilinogen <=1.0 mg/dL 0.1 - 1.0 11/18/2013 [facility] URINE AND STOOL UA WBC 1 /HPF 0 - 5 11/18/2013 [facility] URINE AND STOOL UA Sq Epi Moderate /LPF Few /LPF 11/18/2013 [facility] URINE AND STOOL UA Trans Epi 3 /LPF <=0 /LPF 11/18/2013 [facility] URINE AND STOOL UA Mucus Few /LPF None Seen /LPF 11/18/2013 [facility] URINE AND STOOL UA RBC null 0 - 2 11/18/2013 [facility] URINE AND STOOL UA Protein Negative mg/dL Negative mg/dL 11/18/2013 [facility] URINE AND STOOL UA Glucose >=1000 mg/dL Negative mg/dL 11/18/2013 [facility] URINE AND STOOL UA Color Light Yellow *NA* (11/17/13 11:10 PM) Yellow 11/18/2013 [facility] URINE AND STOOL UA Turbidity Clear (11/17/13 11:10 PM) Clear 11/18/2013 [facility] URINE AND STOOL UA Spec Grav 1.021 <=1.030 11/18/2013 [facility] URINE AND STOOL UA pH 6.0 5.0 - 8.0 11/18/2013 [facility] CHEM PANEL Bili Direct 0.3 mg/dL 0.0 - 0.3 11/15/2013 [facility] CHEM PANEL Albumin Lvl 4.0 g/dL 3.5 - 5.0 11/15/2013 [facility] CHEM PANEL Bili Total 0.5 mg/dL 0.2 - 1.3 11/15/2013 [facility] CHEM PANEL AST 13 unit/L 0 - 37 11/15/2013 [facility] CHEM PANEL ALT 24 unit/L 0 - 65 11/15/2013 [facility] CHEM PANEL Total Protein 6.6 g/dL 6.4 - 8.4 11/15/2013 [facility] CHEM PANEL Alk Phos 136 unit/L 39 - 136 11/15/2013 [facility] CHEM PANEL A/G Ratio 1.5 0.7 - 1.6 11/15/2013 [facility] CHEM PANEL Bili Indirect 0.2 mg/dL 0.0 - 1.0 11/15/2013 [facility] CHEM PANEL Globulin 2.6 g/dL 2.0 - 4.0 11/15/2013 [facility] CHEM PANEL eGFR 91 mL/min/1.73m2 11/15/2013 3Result Comment: The eGFR is calculated using the CKD-EPI formula. In most young, healthy individuals the eGFR will be >90 mL/min/1.73m2. The eGFR declines with age. An eGFR of 60-89 may be normal in some populations, particularly the elderly, for whom the CKD-EPI formula has not been extensively validated. Use of the eGFR is not recommended in the following populations: Individuals with unstable creatinine concentrations, including patients and those with serious co-morbid conditions. Patients with extremes in muscle mass or diet. The data above are obtained from the National Kidney Disease Education Program (NKDEP) which additionally recommends that when the eGFR is used in patients with extremes of body mass index for purposes of drug dosing, the eGFR should be multiplied by the estimated BMI. [facility] CHEM PANEL Chloride Lvl 104 meq/L 95 - 109 11/15/2013 [facility] CHEM PANEL CO2 28 meq/L 24 - 32 11/15/2013 [facility] CHEM PANEL Potassium Lvl 3.2 meq/L 3.5 - 5.1 11/15/2013 [facility] CHEM PANEL Creatinine Lvl 0.8 mg/dL 0.5 - 1.4 11/15/2013 [facility] CHEM PANEL Sodium Lvl 142 meq/L 135 - 145 11/15/2013 [facility] CHEM PANEL Calcium Lvl 8.8 mg/dL 8.5 - 10.5 11/15/2013 [facility] CHEM PANEL Glucose Lvl 154 mg/dL 70 - 99 11/15/2013 7Interpretive Data: Adult reference range values reflect the clinical guidelines of the [place] [employer]. [facility] CHEM PANEL BUN 17 mg/dL 7 - 22 11/15/2013 [facility] CHEM PANEL AGAP 13.2 meq/L 10.0 - 20.0 11/15/2013 [facility] HEMATOLOGY RBC 4.41 M/CMM 4.20 - 5.40 11/15/2013 [facility] HEMATOLOGY WBC 4.7 K/CMM 3.7 - 10.4 11/15/2013 [facility] HEMATOLOGY MPV 8.7 fL 7.4 - 10.4 11/15/2013 [facility] HEMATOLOGY Platelet 185 K/CMM 133 - 450 11/15/2013 [facility] HEMATOLOGY RDW 13.1 % 11.5 - 14.5 11/15/2013 [facility] HEMATOLOGY MCHC 34.7 g/dL 32.0 - 36.0 11/15/2013 [facility] HEMATOLOGY MCV 93.3 fL 81.0 - 99.0 11/15/2013 [facility] HEMATOLOGY MCH 32.4 pg 27.0 - 31.0 11/15/2013 [facility] HEMATOLOGY Hgb 14.3 g/dL 12.0 - 16.0 11/15/2013 [facility] [facility] HEMATOLOGY Hct 41.2 % 36.0 - 48.0 11/15/2013 [facility] HEMATOLOGY Lymphocytes # 1.0 K/CMM 1.0 - 5.5 11/15/2013 [facility] HEMATOLOGY Segs-Bands # 3.4 K/CMM 1.5 - 8.1 11/15/2013 [facility] HEMATOLOGY Monocytes 5.5 % 2.0 - 12.0 11/15/2013 [facility] HEMATOLOGY Lymphocytes 21.0 % 20.0 - 40.0 11/15/2013 [facility] HEMATOLOGY Segs 73.5 % 45.0 - 75.0 11/15/2013 [facility] HEMATOLOGY Monocytes # 0.3 K/CMM 0.0 - 0.8 11/15/2013 [facility] TOXICOLOGY Zonisamide Lvl 18.2 microgram/mL 10.0 - 40.0 11/15/2013 8Result Comment: Test Performed at: [facility], [address] [place] [id number] Radha Salmeron MD, FCAP [facility] TOXICOLOGY Lacosamide Lvl 8.5 microgram/mL 11/15/2013 9Result Comment: Reference Range: Expected concentrations of lacosamide in patients receiving recommended daily dosages: Up to 15.0 mcg/mL. Toxic range not established Test Performed at: [facility], [address] [place] [id number] Radha Salmeron MD, FCAP [facility] URINE CHEM U Preg Negative (11/15/13 1:39 PM) Negative 11/15/2013 [facility] CHEMISTRY Calcium Lvl 9.3 mg/dL 8.5 - 10.5 01/29/2013 Normal [facility] CHEMISTRY eGFR 56 mL/min/1.73m2 01/29/2013 NA 2Result Comment: The eGFR is calculated using the CKD-EPI formula. In most young, healthy individuals the eGFR will be >90 mL/min/1.73m2. The eGFR declines with age. An eGFR of 60-89 may be normal in some populations, particularly the elderly, for whom the CKD-EPI formula has not been extensively validated. Use of the eGFR is not recommended in the following populations: Individuals with unstable creatinine concentrations, including patients and those with serious co-morbid conditions. Patients with extremes in muscle mass or diet. The data above are obtained from the National Kidney Disease Education Program (NKDEP) which additionally recommends that when the eGFR is used in patients with extremes of body mass index for purposes of drug dosing, the eGFR should be multiplied by the estimated BMI. [facility] CHEMISTRY CO2 23 meq/L 24 - 32 01/29/2013 LOW [facility] CHEMISTRY AGAP 18.9 meq/L 10.0 - 20.0 01/29/2013 Normal [facility] CHEMISTRY Glucose Lvl 152 mg/dL 70 - 99 01/29/2013 HI 4Interpretive Data: Adult reference range values reflect the clinical guidelines of the [place] [employer]. [facility] CHEMISTRY BUN 17 mg/dL 7 - 22 01/29/2013 Normal [facility] CHEMISTRY Creatinine Lvl 1.2 mg/dL 0.5 - 1.4 01/29/2013 Normal [facility] CHEMISTRY Sodium Lvl 138 meq/L 135 - 145 01/29/2013 Normal [facility] CHEMISTRY Potassium Lvl 3.9 meq/L 3.5 - 5.1 01/29/2013 Normal [facility] CHEMISTRY Chloride Lvl 100 meq/L 95 - 109 01/29/2013 Normal [facility] CHEMISTRY Phenytoin Total 6.9 ug/ml 10.0 - 20.0 01/29/2013 LOW [facility] CHEMISTRY eGFR 91 mL/min/1.73m2 01/29/2013 NA 3Result Comment: The eGFR is calculated using the CKD-EPI formula. In most young, healthy individuals the eGFR will be >90 mL/min/1.73m2. The eGFR declines with age. An eGFR of 60-89 may be normal in some populations, particularly the elderly, for whom the CKD-EPI formula has not been extensively validated. Use of the eGFR is not recommended in the following populations: Individuals with unstable creatinine concentrations, including patients and those with serious co-morbid conditions. Patients with extremes in muscle mass or diet. The data above are obtained from the National Kidney Disease Education Program (NKDEP) which additionally recommends that when the eGFR is used in patients with extremes of body mass index for purposes of drug dosing, the eGFR should be multiplied by the estimated BMI. [facility] CHEMISTRY Glucose Lvl 167 mg/dL 70 - 99 01/29/2013 HI 5Interpretive Data: Adult reference range values reflect the clinical guidelines of the [place] [employer]. [facility] CHEMISTRY BUN 17 mg/dL 7 - 22 01/29/2013 Normal [facility] CHEMISTRY Creatinine Lvl 0.8 mg/dL 0.5 - 1.4 01/29/2013 Normal [facility] CHEMISTRY Sodium Lvl 130 meq/L 135 - 145 01/29/2013 LOW [facility] CHEMISTRY Chloride Lvl 96 meq/L 95 - 109 01/29/2013 Normal [facility] CHEMISTRY CO2 23 meq/L 24 - 32 01/29/2013 LOW [facility] CHEMISTRY Calcium Lvl 9.7 mg/dL 8.5 - 10.5 01/29/2013 Normal [facility] CHEMISTRY AGAP xxxxxxx (01/29/2013 02:40:00) 10.0 - 20.0 01/29/2013 Normal [facility] CHEMISTRY Potassium Lvl See Note 1 (01/29/2013 02:40:00) 3.5 - 5.1 01/29/2013 Normal 1Result Comment: Grossly hemolzyed, Called to Keny Hernández to [id number]/04/2013 04:14 [facility] HEMATOLOGY Hct 45.0 % 36.0 - 48.0 01/29/2013 Normal [facility] HEMATOLOGY MCV 80.5 fL 81.0 - 99.0 01/29/2013 LOW [facility] HEMATOLOGY MCH 27.2 pg 27.0 - 31.0 01/29/2013 Normal [facility] HEMATOLOGY MCHC 33.8 g/dL 32.0 - 36.0 01/29/2013 Normal [facility] HEMATOLOGY Platelet 290 K/CMM 133 - 450 01/29/2013 Normal [facility] HEMATOLOGY RDW 16.5 % 11.5 - 14.5 01/29/2013 [facility] HEMATOLOGY MPV 9.7 fL 7.4 - 10.4 01/29/2013 Normal [facility] HEMATOLOGY WBC 6.3 K/CMM 3.7 - 10.4 01/29/2013 [facility] HEMATOLOGY Hgb 15.2 g/dL 12.0 - 16.0 01/29/2013 Normal [facility] HEMATOLOGY RBC 5.59 M/CMM 4.20 - 5.40 01/29/2013 [facility] HEMATOLOGY Segs 38.0 % 45.0 - 75.0 01/29/2013 LOW [facility] HEMATOLOGY Lymphocytes 51.0 % 20.0 - 40.0 01/29/2013 [facility] HEMATOLOGY Monocytes 9.0 % 2.0 - 12.0 01/29/2013 [facility] HEMATOLOGY Atypical Lymphs 0.0 % <=0.0 01/29/2013 [facility] HEMATOLOGY Bands 0.0 % 0.0 - 11.0 01/29/2013 [facility] HEMATOLOGY Eosinophils 1.0 % 0.0 - 4.0 01/29/2013 [facility] HEMATOLOGY Basophils 1.0 % 0.0 - 1.0 01/29/2013 [facility] HEMATOLOGY Tot Cell Ct 100 01/29/2013 [facility] HEMATOLOGY Anisocyte 1+ *ABN* (01/29/2013 02:40:00) None Seen 01/29/2013 [facility] HEMATOLOGY Large Plt Slight *ABN* (01/29/2013 02:40:00) None Seen 01/29/2013 [facility] HEMATOLOGY Monocytes # 0.6 K/CMM 0.0 - 0.8 01/29/2013 [facility] HEMATOLOGY Basophils # 0.1 K/CMM 0.0 - 0.2 01/29/2013 [facility] HEMATOLOGY Eosinophils # 0.1 K/CMM 0.0 - 0.5 01/29/2013 [facility] HEMATOLOGY Segs-Bands # 2.4 K/CMM 1.5 - 8.1 01/29/2013 [facility] HEMATOLOGY Lymphocytes # 3.2 K/CMM 1.0 - 5.5 01/29/2013 NA [facility] Head/Neck CTA Head/Neck CTA EXAM: CTA OF THE NECK EXAM: CTA OF THE HEAD DATE: January 29, 2013 at 508 INDICATION: Headache. TECHNIQUE: Rapid acquisition spiral images were obtained between the aortic arch and the cranial vertex during intravenous infusion of iodinated contrast for the purposes of CT angiography. 3-D CT angiographic images are created using maximum intensity projection technique. The source images are also presented for interpretation.There are no studies for comparison. DISCUSSION: The great vessel origins are unremarkable. The common carotid, internal carotid, and vertebral arteries are normal. There is no dissection, pseudoaneurysm, or stenosis. The intracranial vessels are unremarkable. There is no stenosis, occlusion, vasculopathy, aneurysm, or vascular malformation. The left vertebral artery is dominant. 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 The intracranial venous structures are normal. The soft tissues of the neck and other incidental structures are normal. IMPRESSION: No vascular abnormality identified. 01/29/2013 - - This report was dictated by a Internet Marketing Intern/Fellow. I have personally reviewed the images as well as the Resident's interpretation and agree with the findings. Read by: Amanda Richey Resident: Amanda Richey Dictated Date/time: 01/29/13 08:37 Electronically Signed by: Elma Rockwell MD 01/29/13 14:16 FINAL REPORT [facility] BEDSIDE GLUCOSE TESTING Comment1 Notify MYRIAM 03/24/2012 NA [facility] BEDSIDE GLUCOSE TESTING Gluc POC Lifscn 149 mg/dL 70 - 99 03/24/2012 HI 1Interpretive Data: Upper Reportable Limit: 200 mg/dL. [facility] BEDSIDE GLUCOSE TESTING Comment1 Notify MYRIAM 03/24/2012 NA [facility] BEDSIDE GLUCOSE TESTING Gluc POC Lifscn 370 mg/dL 70 - 99 03/24/2012 HI 2Interpretive Data: Upper Reportable Limit: 200 mg/dL. [facility] BEDSIDE GLUCOSE TESTING Gluc POC Lifscn 280 mg/dL 70 - 99 03/24/2012 HI 3Interpretive Data: Upper Reportable Limit: 200 mg/dL. [facility] CHEMISTRY Iron 13 ug/dl 30 - 160 03/24/2012 LOW [facility] CHEMISTRY TIBC 404 ug/dl 228 - 428 03/24/2012 Normal [facility] CHEMISTRY % Satur Fe 3 % 12 - 57 03/24/2012 LOW [facility] CHEMISTRY UIBC 391 ug/dl 110 - 370 03/24/2012 HI [facility] CHEMISTRY Ferritin Lvl 5 ng/mL 5 - 204 03/24/2012 Normal [facility] HEMATOLOGY PB Smear Path Peripheral blood smear shows microcytic, hypochromic anemia with anisopoikilocytosis, elliptocytes. The WBCs are decreased, without blasts or dysplastic forms. Review of laboratory results shows decreased serum iron saturation. Impression: (1) lab results and morphology are consistent with iron deficiency anemia, (2) Rouleaux is also seen. Recommend serum protein electrophoresis if clinically indicated. CPT: 06653 03/24/2012 [facility] IMMUNOLOGY Hep B Core IgM Negative *NA* (03/24/2012 03:58:00) Negative 03/24/2012 [facility] IMMUNOLOGY Hep A IgM Negative *NA* (03/24/2012 03:58:00) Negative 03/24/2012 [facility] IMMUNOLOGY Hep Bs Ag Negative *NA* (03/24/2012 03:58:00) Negative 03/24/2012 [facility] IMMUNOLOGY Hep C Ab Negative *NA* (03/24/2012 03:58:00) Negative 03/24/2012 [facility] BEDSIDE GLUCOSE TESTING Comment1 Notify RN/MD 03/24/2012 [facility] CHEMISTRY eGFR 108 mL/min/1.73m2 03/23/2012 NA 4Result Comment: The eGFR is calculated using the CKD-EPI formula. In most young, healthy individuals the eGFR will be >90 mL/min/1.73m2. The eGFR declines with age. An eGFR of 60-89 may be normal in some populations, particularly the elderly, for whom the CKD-EPI formula has not been extensively validated. Use of the eGFR is not recommended in the following populations: Individuals with unstable creatinine concentrations, including patients and those with serious co-morbid conditions. Patients with extremes in muscle mass or diet. The data above are obtained from the National Kidney Disease Education Program (NKDEP) which additionally recommends that when the eGFR is used in patients with extremes of body mass index for purposes of drug dosing, the eGFR should be multiplied by the estimated BMI. [facility] CHEMISTRY AGAP 14.1 meq/L 10.0 - 20.0 03/23/2012 Normal [facility] CHEMISTRY CO2 26 meq/L 24 - 32 03/23/2012 Normal [facility] CHEMISTRY Calcium Lvl 8.6 mg/dL 8.5 - 10.5 03/23/2012 Normal [facility] CHEMISTRY BUN 12 mg/dL 7 - 22 03/23/2012 Normal [facility] CHEMISTRY Creatinine Lvl 0.7 mg/dL 0.5 - 1.4 03/23/2012 Normal [facility] CHEMISTRY Glucose Lvl 226 mg/dL 70 - 99 03/23/2012 HI 7Interpretive Data: Adult reference range values reflect the clinical guidelines of the [place] [employer]. [facility] CHEMISTRY Chloride Lvl 105 meq/L 95 - 109 03/23/2012 Normal [facility] CHEMISTRY Sodium Lvl 141 meq/L 135 - 145 03/23/2012 Normal [facility] CHEMISTRY Potassium Lvl 4.1 meq/L 3.5 - 5.1 03/23/2012 Normal [facility] HEMATOLOGY Monocytes 6.6 % 2.0 - 12.0 03/23/2012 Normal [facility] HEMATOLOGY Basophils 0.4 % 0.0 - 1.0 03/23/2012 Normal [facility] HEMATOLOGY Monocytes # 0.2 K/CMM 0.0 - 0.8 03/23/2012 Normal [facility] HEMATOLOGY Segs-Bands # 1.8 K/CMM 1.5 - 8.1 03/23/2012 Normal [facility] HEMATOLOGY Lymphocytes # 1.3 K/CMM 1.0 - 5.5 03/23/2012 Normal [facility] HEMATOLOGY Lymphocytes 38.5 % 20.0 - 40.0 03/23/2012 Normal [facility] HEMATOLOGY Anisocyte 1+ *ABN* (03/23/2012 06:50:00) None Seen 03/23/2012 ABN [facility] HEMATOLOGY Microcyte 1+ *ABN* (03/23/2012 06:50:00) None Seen 03/23/2012 ABN [facility] HEMATOLOGY Large Plt Slight *ABN* (03/23/2012 06:50:00) None Seen 03/23/2012 ABN [facility] HEMATOLOGY Segs 54.5 % 45.0 - 75.0 03/23/2012 Normal [facility] HEMATOLOGY Hypochrom Slight (03/23/2012 06:50:00) None Seen 03/23/2012 [facility] HEMATOLOGY Polychrom Slight (03/23/2012 06:50:00) None Seen 03/23/2012 [facility] HEMATOLOGY Elliptocyte Slight *ABN* (03/23/2012 06:50:00) None Seen 03/23/2012 ABN [facility] HEMATOLOGY RDW 18.0 % 11.5 - 14.5 03/23/2012 [facility] HEMATOLOGY MCHC 31.2 g/dL 32.0 - 36.0 03/23/2012 [facility] HEMATOLOGY MCH 20.4 pg 27.0 - 31.0 03/23/2012 [facility] HEMATOLOGY MCV 65.5 fL 81.0 - 99.0 03/23/2012 [facility] HEMATOLOGY RBC 4.60 M/CMM 4.20 - 5.40 03/23/2012 [facility] HEMATOLOGY WBC 3.5 K/CMM 3.7 - 10.4 03/23/2012 [facility] HEMATOLOGY Hgb 9.4 g/dL 12.0 - 16.0 03/23/2012 [facility] HEMATOLOGY Hct 30.1 % 36.0 - 48.0 03/23/2012 [facility] HEMATOLOGY Platelet 168 K/CMM 133 - 450 03/23/2012 [facility] HEMATOLOGY MPV 9.4 fL 7.4 - 10.4 03/23/2012 [facility] CHEMISTRY eGFR 92 mL/min/1.73m2 03/23/2012 NA 5Result Comment: The eGFR is calculated using the CKD-EPI formula. In most young, healthy individuals the eGFR will be >90 mL/min/1.73m2. The eGFR declines with age. An eGFR of 60-89 may be normal in some populations, particularly the elderly, for whom the CKD-EPI formula has not been extensively validated. Use of the eGFR is not recommended in the following populations: Individuals with unstable creatinine concentrations, including patients and those with serious co-morbid conditions. Patients with extremes in muscle mass or diet. The data above are obtained from the National Kidney Disease Education Program (NKDEP) which additionally recommends that when the eGFR is used in patients with extremes of body mass index for purposes of drug dosing, the eGFR should be multiplied by the estimated BMI. [facility] CHEMISTRY AST 155 unit/L 0 - 37 03/23/2012 [facility] CHEMISTRY Globulin 2.8 g/dL 2.0 - 4.0 03/23/2012 Normal [facility] CHEMISTRY A/G Ratio 1.4 0.7 - 1.6 03/23/2012 Normal [facility] CHEMISTRY AGAP 16.9 meq/L 10.0 - 20.0 03/23/2012 Normal [facility] CHEMISTRY B/C Ratio 15 6 - 25 03/23/2012 Normal [facility] CHEMISTRY Total Protein 6.7 g/dL 6.4 - 8.4 03/23/2012 Normal [facility] CHEMISTRY Sodium Lvl 144 meq/L 135 - 145 03/23/2012 Normal [facility] CHEMISTRY Potassium Lvl 3.9 meq/L 3.5 - 5.1 03/23/2012 Normal [facility] CHEMISTRY BUN 12 mg/dL 7 - 22 03/23/2012 Normal [facility] CHEMISTRY Creatinine Lvl 0.8 mg/dL 0.5 - 1.4 03/23/2012 Normal [facility] CHEMISTRY CO2 25 meq/L 24 - 32 03/23/2012 Normal [facility] CHEMISTRY Chloride Lvl 106 meq/L 95 - 109 03/23/2012 Normal [facility] CHEMISTRY Calcium Lvl 9.0 mg/dL 8.5 - 10.5 03/23/2012 Normal [facility] CHEMISTRY Bili Total 0.2 mg/dL 0.2 - 1.3 03/23/2012 Normal [facility] CHEMISTRY Glucose Lvl 75 mg/dL 70 - 99 03/23/2012 Normal 8Interpretive Data: Adult reference range values reflect the clinical guidelines of the [place] [employer]. [facility] CHEMISTRY Alk Phos 170 unit/L 39 - 136 03/23/2012 [facility] CHEMISTRY ALT 141 unit/L 0 - 65 03/23/2012 [facility] CHEMISTRY Albumin Lvl 3.9 g/dL 3.5 - 5.0 03/23/2012 Normal [facility] CHEMISTRY Phenytoin Free 0.77 ug/ml 1.00 - 2.00 03/23/2012 LOW [facility] CHEMISTRY Phenytoin Total 7.1 ug/ml 10.0 - 20.0 03/23/2012 LOW [facility] CHEMISTRY TSH 1.330 uIU/mL 0.360 - 3.740 03/23/2012 Normal [facility] CHEMISTRY Phosphorus 4.3 mg/dL 2.5 - 4.5 03/23/2012 Normal [facility] CHEMISTRY Magnesium Lvl 1.7 mg/dL 1.8 - 2.4 03/23/2012 LOW [facility] CHEMISTRY Hgb A1C 11.5 % 03/22/2012 NA 11Interpretive Data: HbA1C% eAG(mg/dL) Interpretation 6.0 126 Very good control 6.5 140 Very good control 7.0 154 Good Control 7.5 169 Good Control 8.0 183 Marginal Control, take action to lower 8.5 197 Marginal Control, take action to lower 9.0 212 Poor Control, take action to lower 9.5 226 Poor Control, take action to lower 10.0 240 Poor Control, take action to lower [facility] Microbiology Culture: Urine 03/22/2012 [facility] CHEMISTRY Phenytoin Total 4.2 ug/ml 10.0 - 20.0 03/22/2012 LOW [facility] CHEMISTRY eGFR 70 mL/min/1.73m2 03/22/2012 NA 6Result Comment: The eGFR is calculated using the CKD-EPI formula. In most young, healthy individuals the eGFR will be >90 mL/min/1.73m2. The eGFR declines with age. An eGFR of 60-89 may be normal in some populations, particularly the elderly, for whom the CKD-EPI formula has not been extensively validated. Use of the eGFR is not recommended in the following populations: Individuals with unstable creatinine concentrations, including patients and those with serious co-morbid conditions. Patients with extremes in muscle mass or diet. The data above are obtained from the National Kidney Disease Education Program (NKDEP) which additionally recommends that when the eGFR is used in patients with extremes of body mass index for purposes of drug dosing, the eGFR should be multiplied by the estimated BMI. [facility] CHEMISTRY Glucose Lvl 520 mg/dL 70 - 99 03/22/2012 CRIT 10Interpretive Data: Adult reference range values reflect the clinical guidelines of the [place] [employer]. [facility] CHEMISTRY BUN 12 mg/dL 7 - 22 03/22/2012 Normal [facility] CHEMISTRY Calcium Lvl 9.7 mg/dL 8.5 - 10.5 03/22/2012 Normal [facility] CHEMISTRY AGAP 13.4 meq/L 10.0 - 20.0 03/22/2012 Normal [facility] CHEMISTRY Potassium Lvl 4.4 meq/L 3.5 - 5.1 03/22/2012 Normal [facility] CHEMISTRY CO2 26 meq/L 24 - 32 03/22/2012 Normal [facility] CHEMISTRY Sodium Lvl 126 meq/L 135 - 145 03/22/2012 LOW [facility] CHEMISTRY Chloride Lvl 91 meq/L 95 - 109 03/22/2012 LOW [facility] CHEMISTRY Creatinine Lvl 1.0 mg/dL 0.5 - 1.4 03/22/2012 Normal [facility] HEMATOLOGY Platelet 230 K/CMM 133 - 450 03/22/2012 Normal [facility] HEMATOLOGY MCV 66.5 fL 81.0 - 99.0 03/22/2012 [facility] HEMATOLOGY RDW 16.1 % 11.5 - 14.5 03/22/2012 HI [facility] HEMATOLOGY MCH 20.7 pg 27.0 - 31.0 03/22/2012 LOW [facility] HEMATOLOGY MPV 9.8 fL 7.4 - 10.4 03/22/2012 Normal [facility] HEMATOLOGY RBC 5.37 M/CMM 4.20 - 5.40 03/22/2012 Normal [facility] HEMATOLOGY Hct 35.7 % 36.0 - 48.0 03/22/2012 LOW [facility] HEMATOLOGY MCHC 31.1 g/dL 32.0 - 36.0 03/22/2012 LOW 12Result Comment: cbc rechecked. [facility] HEMATOLOGY Hgb 11.1 g/dL 12.0 - 16.0 03/22/2012 LOW [facility] HEMATOLOGY WBC 6.1 K/CMM 3.7 - 10.4 03/22/2012 Normal [facility] HEMATOLOGY Lymphocytes # 1.5 K/CMM 1.0 - 5.5 03/22/2012 Normal [facility] HEMATOLOGY Segs-Bands # 4.2 K/CMM 1.5 - 8.1 03/22/2012 Normal [facility] HEMATOLOGY Basophils 1.0 % 0.0 - 1.0 03/22/2012 Normal [facility] HEMATOLOGY Monocytes # 0.4 K/CMM 0.0 - 0.8 03/22/2012 Normal [facility] HEMATOLOGY Polychrom Slight (03/22/2012 03:30:00) None Seen 03/22/2012 Normal [facility] HEMATOLOGY Microcyte 3+ *NA* (03/22/2012 03:30:00) None Seen 03/22/2012 NA [facility] HEMATOLOGY Anisocyte 1+ *ABN* (03/22/2012 03:30:00) None Seen 03/22/2012 ABN [facility] HEMATOLOGY Basophils # 0.1 K/CMM 0.0 - 0.2 03/22/2012 Normal [facility] HEMATOLOGY Eosinophils # 0.1 K/CMM 0.0 - 0.5 03/22/2012 Normal [facility] HEMATOLOGY Large Plt Slight *ABN* (03/22/2012 03:30:00) None Seen 03/22/2012 ABN [facility] HEMATOLOGY Elliptocyte Slight *ABN* (03/22/2012 03:30:00) None Seen 03/22/2012 ABN [facility] HEMATOLOGY Monocytes 6.2 % 2.0 - 12.0 03/22/2012 Normal [facility] HEMATOLOGY Lymphocytes 24.4 % 20.0 - 40.0 03/22/2012 Normal [facility] HEMATOLOGY Segs 66.4 % 45.0 - 75.0 03/22/2012 Normal [facility] HEMATOLOGY Eosinophils 2.0 % 0.0 - 4.0 03/22/2012 Normal [facility] URINALYSIS UA WBC 51-100 /HPF *ABN* (03/22/2012 03:30:00) None Seen 03/22/2012 ABN [facility] URINALYSIS UA RBC 3-5 /HPF *ABN* (03/22/2012 03:30:00) 0 - 2 03/22/2012 ABN [facility] URINALYSIS UA Bacteria Occasional /HPF (03/22/2012 03:30:00) None Seen 03/22/2012 Normal [facility] URINALYSIS UA Mucus None Seen (03/22/2012 03:30:00) None Seen 03/22/2012 Normal [facility] URINALYSIS UA Blood Trace *ABN* (03/22/2012 03:30:00) Negative 03/22/2012 ABN [facility] URINALYSIS UA Urobilinogen 0.2 EU/dL 0.1 - 1.0 03/22/2012 Normal [facility] URINALYSIS UA Nitrite Negative (03/22/2012 03:30:00) Negative 03/22/2012 Normal [facility] URINALYSIS UA Leuk Est Small *ABN* (03/22/2012 03:30:00) Negative 03/22/2012 ABN [facility] URINALYSIS UA Sq Epi Occasional /LPF (03/22/2012 03:30:00) Few 03/22/2012 Normal [facility] URINALYSIS UA pH 6.0 5.0 - 8.0 03/22/2012 Normal [facility] URINALYSIS UA Protein Negative (03/22/2012 03:30:00) Negative 03/22/2012 Normal [facility] URINALYSIS UA Glucose >=1000 mg/dL *ABN* (03/22/2012 03:30:00) Negative 03/22/2012 ABN [facility] URINALYSIS UA Ketones Negative *NA* (03/22/2012 03:30:00) Negative 03/22/2012 NA [facility] [facility] URINALYSIS UA Bili Negative *NA* (03/22/2012 03:30:00) Negative 03/22/2012 NA [facility] URINALYSIS UA Color Yellow *NA* (03/22/2012 03:30:00) Yellow 03/22/2012 NA [facility] URINALYSIS UA Turbidity Slight Cloudy (03/22/2012 03:30:00) Clear 03/22/2012 Normal [facility] URINALYSIS UA Spec Grav 1.031 <=1.030 03/22/2012 HI [facility] CHEMISTRY Phenytoin Free 0.44 ug/ml 1.00 - 2.00 03/22/2012 LOW [facility] URINALYSIS UA Sq Epi Few /LPF (03/22/2012 01:12:00) Few 03/22/2012 Normal [facility] URINALYSIS UA WBC 21-50 /HPF *ABN* (03/22/2012 01:12:00) None Seen 03/22/2012 ABN [facility] URINALYSIS UA Bacteria Occasional /HPF (03/22/2012 01:12:00) None Seen 03/22/2012 Normal [facility] URINALYSIS UA Mucus None Seen (03/22/2012 01:12:00) None Seen 03/22/2012 Normal [facility] URINALYSIS UA RBC 0-2 /HPF (03/22/2012 01:12:00) 0 - 2 03/22/2012 Normal [facility] URINALYSIS UA Blood Negative (03/22/2012 01:12:00) Negative 03/22/2012 Normal [facility] URINALYSIS UA pH 6.0 5.0 - 8.0 03/22/2012 Normal [facility] URINALYSIS UA Ketones Negative *NA* (03/22/2012 01:12:00) Negative 03/22/2012 NA [facility] URINALYSIS UA Protein Negative (03/22/2012 01:12:00) Negative 03/22/2012 Normal [facility] URINALYSIS UA Glucose >=1000 mg/dL *ABN* (03/22/2012 01:12:00) Negative 03/22/2012 ABN [facility] URINALYSIS UA Bili Negative *NA* (03/22/2012 01:12:00) Negative 03/22/2012 NA [facility] URINALYSIS UA Leuk Est Trace *ABN* (03/22/2012 01:12:00) Negative 03/22/2012 ABN [facility] URINALYSIS Micro? Performed (03/22/2012 01:12:00) 03/22/2012 Normal [facility] URINALYSIS UA Urobilinogen 0.2 EU/dL 0.1 - 1.0 03/22/2012 Normal [facility] URINALYSIS UA Nitrite Negative (03/22/2012 01:12:00) Negative 03/22/2012 Normal [facility] URINALYSIS UA Color Light Yellow (03/22/2012 01:12:00) Yellow 03/22/2012 Normal [facility] URINALYSIS UA Turbidity Clear (03/22/2012 01:12:00) Clear 03/22/2012 Normal [facility] URINALYSIS UA Spec Grav 1.005 <=1.030 03/22/2012 NA [facility] Microbiology Culture: Urine 03/22/2012 [facility] BEDSIDE GLUCOSE TESTING Comment1 Notify RN/MD 11/30/2011 NA [facility] BEDSIDE GLUCOSE TESTING Gluc POC Lifscn 221 mg/dL 70 - 99 11/30/2011 [place] 1Interpretive Data: Upper Reportable Limit: 200 mg/dL. [facility] BEDSIDE GLUCOSE TESTING Gluc POC Lifscn 217 mg/dL 70 - 99 11/30/2011 [place] 2Interpretive Data: Upper Reportable Limit: 200 mg/dL. [facility] BEDSIDE GLUCOSE TESTING Comment1 Notify RN/MD 11/30/2011 NA [facility] BEDSIDE GLUCOSE TESTING Gluc POC Lifscn 177 mg/dL 70 - 99 07/24/2011 [place] 1Interpretive Data: Upper Reportable Limit: 200 mg/dL. [facility] BEDSIDE GLUCOSE TESTING Gluc POC Lifscn 281 mg/dL 70 - 99 07/24/2011 [place] 2Interpretive Data: Upper Reportable Limit: 200 mg/dL. [facility] BEDSIDE GLUCOSE TESTING Gluc POC Lifscn 160 mg/dL 70 - 99 07/24/2011 [place] 3Interpretive Data: Upper Reportable Limit: 200 mg/dL. [facility] CHEMISTRY Phenytoin Total 14.6 ug/ml 10.0 - 20.0 07/22/2011 Normal [facility] CHEMISTRY ALT 20 U/L 0 - 65 07/22/2011 Normal [facility] CHEMISTRY Alk Phos 99 U/L 39 - 136 07/22/2011 Normal [facility] CHEMISTRY Albumin Lvl 3.7 g/dL 3.5 - 5.0 07/22/2011 Normal [facility] CHEMISTRY A/G Ratio 1.2 0.7 - 1.6 07/22/2011 Normal [facility] CHEMISTRY AST 46 U/L 0 - 37 07/22/2011 HI [facility] CHEMISTRY Globulin 3.1 g/dL 2.0 - 4.0 07/22/2011 Normal [facility] CHEMISTRY Bili Indirect 0.1 mg/dL 0.0 - 1.0 07/22/2011 Normal [facility] CHEMISTRY Bili Total 0.2 mg/dL 0.2 - 1.3 07/22/2011 Normal [facility] CHEMISTRY Bili Direct 0.1 mg/dL 0.0 - 0.3 07/22/2011 Normal [facility] CHEMISTRY Total Protein 6.8 g/dL 6.4 - 8.4 07/22/2011 Normal [facility] CHEMISTRY U Preg Negative (07/21/2011 23:48:00) Negative 07/22/2011 Normal [facility] CHEMISTRY CO2 25 meq/L 24 - 32 07/22/2011 Normal [facility] CHEMISTRY Calcium Lvl 9.1 mg/dL 8.5 - 10.5 07/22/2011 Normal [facility] CHEMISTRY Chloride Lvl 103 meq/L 95 - 109 07/22/2011 Normal [facility] CHEMISTRY Creatinine Lvl 0.6 mg/dL 0.5 - 1.4 07/22/2011 Normal [facility] CHEMISTRY BUN 11 mg/dL 7 - 22 07/22/2011 Normal [facility] CHEMISTRY Glucose Lvl 261 mg/dL 70 - 99 07/22/2011 [place] 4Interpretive Data: Adult reference range values reflect the clinical guidelinesof the [place] [employer]. [facility] CHEMISTRY Sodium Lvl 139 meq/L 135 - 145 07/22/2011 Normal [facility] CHEMISTRY Potassium Lvl 5.0 meq/L 3.5 - 5.1 07/22/2011 Normal [facility] CHEMISTRY AGAP 16.0 meq/L 10.0 - 20.0 07/22/2011 Normal [facility] HEMATOLOGY INR 1.01 0.85 - 1.17 07/22/2011 Normal 5Interpretive Data: RECOMMENDED RANGES FOR PROTIME INR: 2.0-3.0 for most medical and surgical thromboembolic states. 2.5-3.5 for artificial heart valves and recurrent embolism.INR SHOULD BE USED ONLY FOR PATIENTS ON STABLE ANTICOAGULANT THERAPY. [facility] HEMATOLOGY PT 13.3 s 12.0 - 14.7 07/22/2011 Normal [facility] HEMATOLOGY PTT 23.4 s 22.9 - 35.8 07/22/2011 Normal 6Interpretive Data: Heparin Therapeutic Range: 57 - 92 Seconds [facility] HEMATOLOGY Eosinophils # 0.0 K/CMM 0.0 - 0.5 07/22/2011 Normal [facility] HEMATOLOGY Basophils # 0.0 K/CMM 0.0 - 0.2 07/22/2011 Normal [facility] HEMATOLOGY Microcyte 1+ *ABN* (07/21/2011 23:48:00) None Seen 07/22/2011 ABN [facility] HEMATOLOGY Lymphocytes # 1.4 K/CMM 1.0 - 5.5 07/22/2011 Normal [facility] HEMATOLOGY Basophils 0.6 % 0.0 - 1.0 07/22/2011 [facility] HEMATOLOGY Segs-Bands # 2.1 K/CMM 1.5 - 8.1 07/22/2011 [facility] HEMATOLOGY Monocytes # 0.2 K/CMM 0.0 - 0.8 07/22/2011 [facility] HEMATOLOGY Lymphocytes 36.9 % 20.0 - 40.0 07/22/2011 [facility] HEMATOLOGY Eosinophils 0.0 % 0.0 - 4.0 07/22/2011 [facility] HEMATOLOGY Monocytes 5.6 % 2.0 - 12.0 07/22/2011 [facility] HEMATOLOGY Segs 56.9 % 45.0 - 75.0 07/22/2011 [facility] HEMATOLOGY Platelet 198 K/CMM 133 - 450 07/22/2011 [facility] HEMATOLOGY Hgb 9.2 g/dL 12.0 - 16.0 07/22/2011 [facility] HEMATOLOGY MCH 25.1 pg 27.0 - 31.0 07/22/2011 [facility] HEMATOLOGY MCHC 33.5 g/dL 32.0 - 36.0 07/22/2011 [facility] HEMATOLOGY MCV 74.9 fL 81.0 - 99.0 07/22/2011 [facility] HEMATOLOGY RDW 16.9 % 11.5 - 14.5 07/22/2011 [facility] HEMATOLOGY MPV 9.0 fL 7.4 - 10.4 07/22/2011 [facility] HEMATOLOGY Hct 27.6 % 36.0 - 48.0 07/22/2011 [facility] HEMATOLOGY RBC 3.68 M/CMM 4.20 - 5.40 07/22/2011 [facility] HEMATOLOGY WBC 3.7 K/CMM 3.7 - 10.4 07/22/2011 [facility] BEDSIDE GLUCOSE TESTING Gluc POC Lifscn 268 mg/dL 65 - 110 06/19/2011 [place] 1Interpretive Data: Upper Reportable Limit: 200 mg/dL. [facility] CHEMISTRY Magnesium Lvl 1.6 mg/dL 1.8 - 2.4 06/19/2011 [facility] CHEMISTRY Calcium Lvl 8.6 mg/dL 8.5 - 10.5 06/19/2011 [facility] CHEMISTRY AGAP 20.2 meq/L 10.0 - 20.0 06/19/2011 HI [facility] CHEMISTRY Potassium Lvl 4.2 meq/L 3.5 - 5.1 06/19/2011 Normal [facility] CHEMISTRY Creatinine Lvl 0.8 mg/dL 0.5 - 1.4 06/19/2011 Normal [facility] CHEMISTRY Sodium Lvl 140 meq/L 135 - 145 06/19/2011 Normal [facility] CHEMISTRY Chloride Lvl 107 meq/L 95 - 109 06/19/2011 Normal [facility] CHEMISTRY CO2 17 meq/L 24 - 32 06/19/2011 LOW [facility] CHEMISTRY BUN 7 mg/dL 7 - 06/19/2011 Normal [facility] CHEMISTRY Glucose Lvl 259 mg/dL 06/19/2011 NA 4Interpretive Data: Reference Ranges : 0 - 7 days : 41 - 90 mg/dL7 days - 150 yrs : 70 - 99 mg/dL (fasting), based on the clinical recommendations of the [place]. [facility] CHEMISTRY Phosphorus 3.9 mg/dL 2.5 - 4.5 06/19/2011 Normal [facility] CHEMISTRY Magnesium Lvl 1.6 mg/dL 1.8 - 2.4 06/19/2011 LOW [facility] BEDSIDE GLUCOSE TESTING Comment1 Notify AURELIANO/ 06/19/2011 NA [facility] BEDSIDE GLUCOSE TESTING Gluc POC Lifscn 198 mg/dL 65 - 110 06/19/2011 [place] 2Interpretive Data: Upper Reportable Limit: 200 mg/dL. [facility] BEDSIDE GLUCOSE TESTING Gluc POC Lifscn 245 mg/dL 65 - 110 06/18/2011 [place] 3Interpretive Data: Upper Reportable Limit: 200 mg/dL. [facility] BEDSIDE GLUCOSE TESTING Comment1 Notify AURELIANO/ 06/18/2011 NA [facility] CHEMISTRY BUN 7 mg/dL 7 - 22 06/18/2011 Normal [facility] CHEMISTRY Glucose Lvl 246 mg/dL 06/18/2011 NA 5Interpretive Data: Reference Ranges : 0 - 7 days : 41 - 90 mg/dL7 days - 150 yrs : 70 - 99 mg/dL (fasting), based on the clinical recommendations of the [place] [employer]. [facility] CHEMISTRY Creatinine Lvl 0.6 mg/dL 0.5 - 1.4 06/18/2011 Normal [facility] CHEMISTRY Sodium Lvl 145 meq/L 135 - 145 06/18/2011 Normal [facility] CHEMISTRY Potassium Lvl 3.6 meq/L 3.5 - 5.1 06/18/2011 Normal [facility] CHEMISTRY Chloride Lvl 110 meq/L 95 - 109 06/18/2011 HI [facility] CHEMISTRY CO2 25 meq/L 24 - 32 06/18/2011 Normal [facility] CHEMISTRY Calcium Lvl 8.9 mg/dL 8.5 - 10.5 06/18/2011 Normal [facility] CHEMISTRY AGAP 13.6 meq/L 10.0 - 20.0 06/18/2011 Normal [facility] CHEMISTRY Hgb A1C 8.9 % 06/18/2011 NA 8Interpretive Data: HbA1C% eAG(mg/dL) Interpretation 6.0 126 Very good control 6.5 140 Very good control 7.0 154 Good Control 7.5 169 Good Control 8.0 183 Marginal Control, take action to lower 8.5 197 Marginal Control, take action to lower 9.0 212 Poor Control, take action to lower 9.5 226 Poor Control, take action to lower10.0 240 Poor Control, take action to lower [facility] CHEMISTRY Magnesium Lvl 1.2 mg/dL 1.8 - 2.4 06/18/2011 LOW [facility] CHEMISTRY Phosphorus 3.7 mg/dL 2.5 - 4.5 06/18/2011 Normal [facility] BEDSIDE GLUCOSE TESTING Comment1 Notify RN/MD 06/18/2011 NA [facility] HEMATOLOGY MPV 7.8 fL 7.4 - 10.4 06/17/2011 Normal [facility] HEMATOLOGY RDW 13.9 % 11.5 - 14.5 06/17/2011 Normal [facility] HEMATOLOGY Platelet 165 K/CMM 133 - 450 06/17/2011 Normal [facility] HEMATOLOGY MCH 28.9 pg 27.0 - 31.0 06/17/2011 Normal [facility] HEMATOLOGY MCHC 34.9 g/dL 32.0 - 36.0 06/17/2011 Normal [facility] HEMATOLOGY MCV 83.0 fL 81.0 - 99.0 06/17/2011 Normal [facility] HEMATOLOGY RBC 3.18 M/CMM 4.20 - 5.40 06/17/2011 LOW [facility] HEMATOLOGY Hgb 9.2 g/dL 12.0 - 16.0 06/17/2011 LOW [facility] HEMATOLOGY Hct 26.4 % 36.0 - 48.0 06/17/2011 LOW [facility] HEMATOLOGY WBC 3.1 K/CMM 3.7 - 10.4 06/17/2011 LOW [facility] URINALYSIS UA Urobilinogen <=1.0 mg/dL
*NA*
(06/17/2011 12:18:00) <sup> </sup> 0.1 - 1.0 06/17/2011 NA [facility] URINALYSIS Micro? Not Indicated *NA* (06/17/2011 12:18:00) 06/17/2011 NA [facility] URINALYSIS UA RBC null 0 - 2 06/17/2011 Normal [facility] URINALYSIS UA Bili Negative *NA* (06/17/2011 12:18:00) Negative 06/17/2011 NA [facility] URINALYSIS UA Ketones Negative mg/dL *NA* (06/17/2011 12:18:00) Negative 06/17/2011 NA [facility] URINALYSIS UA Glucose >=1000 mg/dL *ABN* (06/17/2011 12:18:00) Negative 06/17/2011 ABN [facility] URINALYSIS UA Protein Negative mg/dL (06/17/2011 12:18:00) Negative 06/17/2011 Normal [facility] URINALYSIS UA Mucus Few /LPF *NA* (06/17/2011 12:18:00) None Seen 06/17/2011 NA [facility] URINALYSIS UA WBC 1 /HPF 0 - 5 06/17/2011 Normal [facility] URINALYSIS UA Leuk Est Negative (06/17/2011 12:18:00) Negative 06/17/2011 Normal [facility] URINALYSIS UA Sq Epi Moderate /LPF *ABN* (06/17/2011 12:18:00) Few 06/17/2011 ABN [facility] URINALYSIS UA Blood Negative (06/17/2011 12:18:00) Negative 06/17/2011 Normal [facility] URINALYSIS UA Nitrite Negative (06/17/2011 12:18:00) Negative 06/17/2011 Normal [facility] URINALYSIS UA pH 7.0 5.0 - 8.0 06/17/2011 Normal [facility] URINALYSIS UA Spec Grav 1.015 <=1.030 06/17/2011 Normal [facility] URINALYSIS UA Turbidity Clear (06/17/2011 12:18:00) Clear 06/17/2011 Normal [facility] URINALYSIS UA Color Light Yellow *NA* (06/17/2011 12:18:00) Yellow 06/17/2011 NA [facility] Microbiology Culture: Urine 06/17/2011 [facility] CHEMISTRY Phenytoin Free 1.63 ug/ml 1.00 - 2.00 06/17/2011 Normal [facility] CHEMISTRY Phenytoin Total 19.8 ug/ml 10.0 - 20.0 06/17/2011 Normal [facility] CHEMISTRY U Preg Negative (06/16/2011 00:13:00) Negative 06/16/2011 Normal [facility] CHEMISTRY Phenytoin Free 0.61 ug/ml 1.00 - 2.00 06/16/2011 LOW [facility] BEDSIDE GLUCOSE TESTING Comment2 Verify w/Lab 06/16/2011 NA [facility] CHEMISTRY Phenytoin Total 10.3 ug/ml 10.0 - 20.0 06/16/2011 Normal [facility] CHEMISTRY Bili Total 0.3 mg/dL 0.2 - 1.3 06/16/2011 Normal [facility] CHEMISTRY Bili Indirect 0.2 mg/dL 0.0 - 1.0 06/16/2011 Normal [facility] CHEMISTRY Bili Direct 0.1 mg/dL 0.0 - 0.3 06/16/2011 Normal [facility] CHEMISTRY A/G Ratio 1.5 0.7 - 1.6 06/16/2011 Normal [facility] CHEMISTRY Total Protein 7.2 g/dL 6.4 - 8.4 06/16/2011 Normal [facility] CHEMISTRY Globulin 2.9 g/dL 2.0 - 4.0 06/16/2011 Normal [facility] CHEMISTRY Albumin Lvl 4.3 g/dL 3.5 - 5.0 06/16/2011 Normal [facility] CHEMISTRY Alk Phos 125 U/L 39 - 136 06/16/2011 Normal [facility] CHEMISTRY ALT 24 U/L 0 - 65 06/16/2011 Normal [facility] CHEMISTRY AST 13 U/L 0 - 37 06/16/2011 Normal [facility] CHEMISTRY AGAP 17.2 meq/L 10.0 - 20.0 06/16/2011 Normal [facility] CHEMISTRY Sodium Lvl 135 meq/L 135 - 145 06/16/2011 Normal [facility] CHEMISTRY Potassium Lvl 4.2 meq/L 3.5 - 5.1 06/16/2011 Normal [facility] CHEMISTRY Chloride Lvl 97 meq/L 95 - 109 06/16/2011 Normal [facility] CHEMISTRY CO2 25 meq/L 24 - 32 06/16/2011 Normal [facility] CHEMISTRY Calcium Lvl 8.8 mg/dL 8.5 - 10.5 06/16/2011 Normal [facility] CHEMISTRY Glucose Lvl 575 mg/dL 06/16/2011 CRIT 7Interpretive Data: Reference Ranges : 0 - 7 days : 41 - 90 mg/dL7 days - 150 yrs : 70 - 99 mg/dL (fasting), based on the clinical recommendations of the [employer]. [facility] CHEMISTRY BUN 8 mg/dL 7 - 22 06/16/2011 Normal [facility] CHEMISTRY Creatinine Lvl 1.1 mg/dL 0.5 - 1.4 06/16/2011 Normal [facility] HEMATOLOGY Basophils 0.2 % 0.0 - 1.0 06/16/2011 Normal [facility] HEMATOLOGY Segs-Bands # 2.8 K/CMM 1.5 - 8.1 06/16/2011 Normal [facility] HEMATOLOGY Lymphocytes # 1.1 K/CMM 1.0 - 5.5 06/16/2011 Normal [facility] HEMATOLOGY Eosinophils # 0.0 K/CMM 0.0 - 0.5 06/16/2011 Normal [facility] HEMATOLOGY Segs 67.5 % 45.0 - 75.0 06/16/2011 Normal [facility] HEMATOLOGY Lymphocytes 27.1 % 20.0 - 40.0 06/16/2011 Normal [facility] HEMATOLOGY Monocytes # 0.2 K/CMM 0.0 - 0.8 06/16/2011 Normal [facility] HEMATOLOGY Monocytes 5.2 % 2.0 - 12.0 06/16/2011 Normal [facility] HEMATOLOGY Eosinophils 0.0 % 0.0 - 4.0 06/16/2011 Normal [facility] HEMATOLOGY Basophils # 0.0 K/CMM 0.0 - 0.2 06/16/2011 Normal [facility] HEMATOLOGY PTT 24.7 s 22.9 - 35.8 06/16/2011 Normal 10Interpretive Data: Heparin Therapeutic Range: 57 - 92 Seconds [facility] HEMATOLOGY PT 13.4 s 12.0 - 14.7 06/16/2011 Normal [facility] HEMATOLOGY INR 1.02 0.85 - 1.17 06/16/2011 Normal 9Interpretive Data: RECOMMENDED RANGES FOR PROTIME INR: 2.0-3.0 for most medical and surgical thromboembolic states. 2.5-3.5 for artificial heart valves and recurrent embolism.INR SHOULD BE USED ONLY FOR PATIENTS ON STABLE ANTICOAGULANT THERAPY. [facility] HEMATOLOGY Hgb 10.6 g/dL 12.0 - 16.0 06/16/2011 LOW [facility] HEMATOLOGY RBC 3.55 M/CMM 4.20 - 5.40 06/16/2011 LOW [facility] HEMATOLOGY WBC 4.2 K/CMM 3.7 - 10.4 06/16/2011 Normal [facility] HEMATOLOGY MCH 29.9 pg 27.0 - 31.0 06/16/2011 Normal [facility] HEMATOLOGY Platelet 197 K/CMM 133 - 450 06/16/2011 Normal [facility] HEMATOLOGY MPV 8.6 fL 7.4 - 10.4 06/16/2011 Normal [facility] HEMATOLOGY MCHC 35.4 g/dL 32.0 - 36.0 06/16/2011 Normal [facility] HEMATOLOGY RDW 14.3 % 11.5 - 14.5 06/16/2011 Normal [facility] HEMATOLOGY Hct 30.0 % 36.0 - 48.0 06/16/2011 LOW [facility] HEMATOLOGY MCV 84.4 fL 81.0 - 99.0 06/16/2011 Normal [facility] BEDSIDE GLUCOSE TESTING Gluc POC Lifscn 364 mg/dL 65 - 110 06/07/2011 [place] 2Interpretive Data: Upper Reportable Limit: 200 mg/dL. [facility] BEDSIDE GLUCOSE TESTING Gluc POC Lifscn 155 mg/dL 65 - 110 06/06/2011 [place] 3Interpretive Data: Upper Reportable Limit: 200 mg/dL. [facility] CHEMISTRY Chloride Lvl 104 meq/L 95 - 109 06/06/2011 Normal [facility] CHEMISTRY AGAP 19.1 meq/L 10.0 - 20.0 06/06/2011 Normal [facility] CHEMISTRY CO2 20 meq/L 24 - 32 06/06/2011 LOW [facility] CHEMISTRY Calcium Lvl 8.5 mg/dL 8.5 - 10.5 06/06/2011 Normal [facility] CHEMISTRY Creatinine Lvl 0.9 mg/dL 0.5 - 1.4 06/06/2011 Normal [facility] CHEMISTRY Glucose Lvl 142 mg/dL 06/06/2011 NA 5Interpretive Data: Reference Ranges : 0 - 7 days : 41 - 90 mg/dL7 days - 150 yrs : 70 - 99 mg/dL (fasting), based on the clinical recommendations of the [employer]. [facility] CHEMISTRY BUN 3 mg/dL 7 - 22 06/06/2011 [facility] CHEMISTRY Potassium Lvl 3.1 meq/L 3.5 - 5.1 06/06/2011 [facility] CHEMISTRY Sodium Lvl 140 meq/L 135 - 145 06/06/2011 [facility] CHEMISTRY Magnesium Lvl 1.2 mg/dL 1.8 - 2.4 06/06/2011 [facility] CHEMISTRY Phosphorus 2.9 mg/dL 2.5 - 4.5 06/06/2011 [facility] HEMATOLOGY RDW 14.6 % 11.5 - 14.5 06/06/2011 [facility] HEMATOLOGY Platelet 195 K/CMM 133 - 450 06/06/2011 Normal [facility] HEMATOLOGY MPV 7.4 fL 7.4 - 10.4 06/06/2011 [facility] HEMATOLOGY MCHC 34.6 g/dL 32.0 - 36.0 06/06/2011 [facility] HEMATOLOGY RBC 3.30 M/CMM 4.20 - 5.40 06/06/2011 [facility] HEMATOLOGY Hgb 10.0 g/dL 12.0 - 16.0 06/06/2011 [facility] HEMATOLOGY MCH 30.4 pg 27.0 - 31.0 06/06/2011 Normal [facility] HEMATOLOGY Hct 29.0 % 36.0 - 48.0 06/06/2011 [facility] HEMATOLOGY MCV 87.9 fL 81.0 - 99.0 06/06/2011 Normal [facility] HEMATOLOGY WBC 5.0 K/CMM 3.7 - 10.4 06/06/2011 Normal [facility] HEMATOLOGY Segs 58.7 % 45.0 - 75.0 06/06/2011 Normal [facility] HEMATOLOGY Monocytes # 0.4 K/CMM 0.0 - 0.8 06/06/2011 Normal [facility] HEMATOLOGY Basophils # 0.0 K/CMM 0.0 - 0.2 06/06/2011 Normal [facility] HEMATOLOGY Eosinophils # 0.0 K/CMM 0.0 - 0.5 06/06/2011 Normal [facility] HEMATOLOGY Eosinophils 0.0 % 0.0 - 4.0 06/06/2011 Normal [facility] HEMATOLOGY Basophils 0.3 % 0.0 - 1.0 06/06/2011 [facility] HEMATOLOGY Monocytes 8.5 % 2.0 - 12.0 06/06/2011 Normal [facility] HEMATOLOGY Lymphocytes 32.5 % 20.0 - 40.0 06/06/2011 Normal [facility] HEMATOLOGY Segs-Bands # 2.9 K/CMM 1.5 - 8.1 06/06/2011 [facility] HEMATOLOGY Lymphocytes # 1.6 K/CMM 1.0 - 5.5 06/06/2011 Normal [facility] BEDSIDE GLUCOSE TESTING Gluc POC Lifscn 245 mg/dL 65 - 110 06/06/2011 [place] 4Interpretive Data: Upper Reportable Limit: 200 mg/dL. [facility] BEDSIDE GLUCOSE TESTING Comment1 Notify RN/ 06/05/2011 [facility] BEDSIDE GLUCOSE TESTING Comment1 Notify RN/ 06/05/2011 [facility] BEDSIDE GLUCOSE TESTING Comment1 Notify RN/ 06/05/2011 [facility] CHEMISTRY Phosphorus 1.9 mg/dL 2.5 - 4.5 06/05/2011 LOW [facility] CHEMISTRY Magnesium Lvl 2.3 mg/dL 1.8 - 2.4 06/05/2011 Normal [facility] CHEMISTRY Creatinine Lvl 0.6 mg/dL 0.5 - 1.4 06/05/2011 Normal [facility] CHEMISTRY BUN 2 mg/dL 7 - 22 06/05/2011 LOW [facility] CHEMISTRY Calcium Lvl 8.9 mg/dL 8.5 - 10.5 06/05/2011 Normal [facility] CHEMISTRY AGAP 17.0 meq/L 10.0 - 20.0 06/05/2011 Normal [facility] CHEMISTRY Sodium Lvl 141 meq/L 135 - 145 06/05/2011 Normal [facility] CHEMISTRY Potassium Lvl 4.0 meq/L 3.5 - 5.1 06/05/2011 Normal [facility] CHEMISTRY Chloride Lvl 105 meq/L 95 - 109 06/05/2011 Normal [facility] CHEMISTRY Glucose Lvl 136 mg/dL 06/05/2011 NA 6Interpretive Data: Reference Ranges : 0 - 7 days : 41 - 90 mg/dL7 days - 150 yrs : 70 - 99 mg/dL (fasting), based on the clinical recommendations of the [employer]. [facility] CHEMISTRY CO2 23 meq/L 24 - 32 06/05/2011 [facility] CHEMISTRY Ca Norm mgdL 4.04 mg/dL 4.65 - 5.20 06/05/2011 [facility] CHEMISTRY Ca Ion mgdL 4.16 mg/dL 4.65 - 5.20 06/05/2011 [facility] CHEMISTRY Ca Norm 1.01 mMol/L 1.16 - 1.30 06/05/2011 [facility] CHEMISTRY Ca Ion 1.04 mMol/L 1.16 - 1.30 06/05/2011 [facility] HEMATOLOGY RBC 3.42 M/CMM 4.20 - 5.40 06/05/2011 [facility] HEMATOLOGY Hgb 10.6 g/dL 12.0 - 16.0 06/05/2011 [facility] HEMATOLOGY Hct 30.2 % 36.0 - 48.0 06/05/2011 [facility] HEMATOLOGY WBC 6.6 K/CMM 3.7 - 10.4 06/05/2011 [facility] HEMATOLOGY MPV 7.1 fL 7.4 - 10.4 06/05/2011 [facility] HEMATOLOGY Platelet 225 K/CMM 133 - 450 06/05/2011 [facility] HEMATOLOGY MCV 88.4 fL 81.0 - 99.0 06/05/2011 Normal [facility] HEMATOLOGY MCHC 35.0 g/dL 32.0 - 36.0 06/05/2011 Normal [facility] HEMATOLOGY MCH 31.0 pg 27.0 - 31.0 06/05/2011 Normal [facility] HEMATOLOGY RDW 14.4 % 11.5 - 14.5 06/05/2011 Normal [facility] HEMATOLOGY Segs 78.0 % 45.0 - 75.0 06/05/2011 HI [facility] HEMATOLOGY Lymphocytes 12.3 % 20.0 - 40.0 06/05/2011 LOW [facility] HEMATOLOGY Basophils # 0.0 K/CMM 0.0 - 0.2 06/05/2011 Normal [facility] HEMATOLOGY Eosinophils 0.0 % 0.0 - 4.0 06/05/2011 Normal [facility] HEMATOLOGY Basophils 0.3 % 0.0 - 1.0 06/05/2011 Normal [facility] HEMATOLOGY Segs-Bands # 5.2 K/CMM 1.5 - 8.1 06/05/2011 Normal [facility] HEMATOLOGY Lymphocytes # 0.8 K/CMM 1.0 - 5.5 06/05/2011 LOW [facility] HEMATOLOGY Monocytes # 0.6 K/CMM 0.0 - 0.8 06/05/2011 Normal [facility] HEMATOLOGY Monocytes 9.4 % 2.0 - 12.0 06/05/2011 Normal [facility] HEMATOLOGY Eosinophils # 0.0 K/CMM 0.0 - 0.5 06/05/2011 Normal [facility] CHEMISTRY Lactic Acid Lvl 1.4 mMol/L 0.5 - 2.2 06/04/2011 Normal [facility] CHEMISTRY Magnesium Lvl 1.0 mg/dL 1.8 - 2.4 06/04/2011 CRIT 8Result Comment: Critical Result(s) called to MEREDITH RUSSELL at 06/04/2011 16:03 by MCKINLEY. Read back OK. [facility] CHEMISTRY Phosphorus 4.3 mg/dL 2.5 - 4.5 06/04/2011 Normal [facility] CHEMISTRY Potassium Lvl 3.7 meq/L 3.5 - 5.1 06/04/2011 Normal [facility] CHEMISTRY Chloride Lvl 108 meq/L 95 - 109 06/04/2011 Normal [facility] CHEMISTRY Sodium Lvl 144 meq/L 135 - 145 06/04/2011 Normal [facility] CHEMISTRY Calcium Lvl 8.1 mg/dL 8.5 - 10.5 06/04/2011 [facility] CHEMISTRY CO2 13 meq/L 24 - 32 06/04/2011 [facility] CHEMISTRY AGAP 26.7 meq/L 10.0 - 20.0 06/04/2011 [facility] CHEMISTRY Glucose Lvl 256 mg/dL 06/04/2011 NA 7Interpretive Data: Reference Ranges : 0 - 7 days : 41 - 90 mg/dL7 days - 150 yrs : 70 - 99 mg/dL (fasting), based on the clinical recommendations of the [employer]. [facility] CHEMISTRY BUN 3 mg/dL 7 - 22 06/04/2011 [facility] CHEMISTRY Creatinine Lvl 0.5 mg/dL 0.5 - 1.4 06/04/2011 [facility] CHEMISTRY Ca Ion 1.18 mMol/L 1.16 - 1.30 06/04/2011 [facility] CHEMISTRY Ca Norm 1.14 mMol/L 1.16 - 1.30 06/04/2011 [facility] CHEMISTRY Ca Norm mgdL 4.56 mg/dL 4.65 - 5.20 06/04/2011 [facility] CHEMISTRY Ca Ion mgdL 4.72 mg/dL 4.65 - 5.20 06/04/2011 [facility] HEMATOLOGY Segs-Bands # 5.0 K/CMM 1.5 - 8.1 06/04/2011 [facility] HEMATOLOGY Basophils 0.2 % 0.0 - 1.0 06/04/2011 [facility] HEMATOLOGY Eosinophils 0.0 % 0.0 - 4.0 06/04/2011 [facility] HEMATOLOGY Monocytes 6.8 % 2.0 - 12.0 06/04/2011 [facility] HEMATOLOGY Monocytes # 0.4 K/CMM 0.0 - 0.8 06/04/2011 [facility] HEMATOLOGY Lymphocytes # 0.8 K/CMM 1.0 - 5.5 06/04/2011 [facility] HEMATOLOGY Lymphocytes 13.1 % 20.0 - 40.0 06/04/2011 [facility] HEMATOLOGY Segs 79.9 % 45.0 - 75.0 06/04/2011 [facility] HEMATOLOGY Basophils # 0.0 K/CMM 0.0 - 0.2 06/04/2011 [facility] HEMATOLOGY Eosinophils # 0.0 K/CMM 0.0 - 0.5 06/04/2011 Normal [facility] HEMATOLOGY MPV 7.4 fL 7.4 - 10.4 06/04/2011 Normal [facility] HEMATOLOGY Hct 30.0 % 36.0 - 48.0 06/04/2011 LOW [facility] HEMATOLOGY Platelet 243 K/CMM 133 - 450 06/04/2011 Normal [facility] HEMATOLOGY RDW 14.6 % 11.5 - 14.5 06/04/2011 HI [facility] HEMATOLOGY MCHC 35.2 g/dL 32.0 - 36.0 06/04/2011 Normal [facility] HEMATOLOGY MCH 31.1 pg 27.0 - 31.0 06/04/2011 [facility] HEMATOLOGY MCV 88.3 fL 81.0 - 99.0 06/04/2011 Normal [facility] HEMATOLOGY Hgb 10.6 g/dL 12.0 - 16.0 06/04/2011 LOW [facility] HEMATOLOGY RBC 3.39 M/CMM 4.20 - 5.40 06/04/2011 LOW [facility] HEMATOLOGY WBC 6.3 K/CMM 3.7 - 10.4 06/04/2011 Normal [facility] Microbiology Culture: Resistant Acinetobacter Screen 06/04/2011 [facility] Microbiology Culture: MRSA 06/04/2011 [facility] Microbiology Culture: Aspirate/Body Fluid/Tissue 06/04/2011 [facility] Microbiology Culture: Anaerobic 06/04/2011 [facility] Microbiology Culture: Anaerobic 06/04/2011 [facility] Microbiology Culture: Aspirate/Body Fluid/Tissue 06/04/2011 [facility] BLOOD BANK RESULTS RBC product Product available (06/03/2011 15:10:00) 06/03/2011 Normal [facility] BLOOD BANK RESULTS Antibody Scrn Negative (06/03/2011 15:10:00) 06/03/2011 Normal [facility] BLOOD BANK RESULTS ABO/Rh O POS 06/03/2011 Unknown [facility] HEMATOLOGY INR 1.05 0.85 - 1.17 06/03/2011 Normal 9Interpretive Data: RECOMMENDED RANGES FOR PROTIME INR: 2.0-3.0 for most medical and surgical thromboembolic states. 2.5-3.5 for artificial heart valves and recurrent embolism.INR SHOULD BE USED ONLY FOR PATIENTS ON STABLE ANTICOAGULANT THERAPY. [facility] HEMATOLOGY PT 13.7 s 12.0 - 14.7 06/03/2011 Normal [facility] HEMATOLOGY PTT 25.5 s 22.9 - 35.8 06/03/2011 Normal 12Interpretive Data: Heparin Therapeutic Range: 57 - 92 Seconds [facility] CHEMISTRY Ca Ion 1.22 mMol/L 1.16 - 1.30 05/29/2011 Normal [facility] CHEMISTRY Ca Norm mgdL 4.72 mg/dL 4.65 - 5.20 05/29/2011 Normal [facility] CHEMISTRY Ca Ion mgdL 4.88 mg/dL 4.65 - 5.20 05/29/2011 Normal [facility] CHEMISTRY Ca Norm 1.18 mMol/L 1.16 - 1.30 05/29/2011 Normal [facility] HEMATOLOGY PT 15.3 s 12.0 - 14.7 05/29/2011 HI [facility] HEMATOLOGY INR 1.21 0.85 - 1.17 05/29/2011 HI 10Interpretive Data: RECOMMENDED RANGES FOR PROTIME INR: 2.0-3.0 for most medical and surgical thromboembolic states. 2.5-3.5 for artificial heart valves and recurrent embolism.INR SHOULD BE USED ONLY FOR PATIENTS ON STABLE ANTICOAGULANT THERAPY. [facility] HEMATOLOGY PTT 24.1 s 22.9 - 35.8 05/29/2011 Normal 13Interpretive Data: Heparin Therapeutic Range: 57 - 92 Seconds [facility] CHEMISTRY Lactic Acid Lvl 1.1 mMol/L 0.5 - 2.2 2011 Normal [facility] HEMATOLOGY INR 1.29 0.85 - 1.17 2011 HI 11Interpretive Data: RECOMMENDED RANGES FOR PROTIME INR: 2.0-3.0 for most medical and surgical thromboembolic states. 2.5-3.5 for artificial heart valves and recurrent embolism.INR SHOULD BE USED ONLY FOR PATIENTS ON STABLE ANTICOAGULANT THERAPY. [facility] HEMATOLOGY PTT 20.9 s 22.9 - 35.8 2011 LOW 14Interpretive Data: Heparin Therapeutic Range: 57 - 92 Seconds [facility] HEMATOLOGY PT 16.1 s 12.0 - 14.7 2011 HI [facility] URINALYSIS UA Spec Grav 1.009 <=1.030 2011 Normal [facility] BACTERIAL - SEROLOGY MRSA by PCR Negative 1 (2011 16:40:00) 2011 Normal 1Interpretive Data: INTERPRETATION: Negative......No MRSA DNA detected by PCR Positive......MRSA DNA detected by PCRASSAY LIMITATIONS:This is a screening test for colonization by MRSA. A positive test result indicates the patient is colonized by MRSA, but does not necessarily mean that an infection is present or that treatment is necessary. Likewise, a negative test does not exclude colonization or infection. Patients should be evaluatedclinically for symptoms and signs of infection before making therapeutic decisions. Routine decolonization is discouraged and should only be considered for select patients after consultation with an infectious diseases specialist. [facility] Microbiology Culture: Resistant Acinetobacter Screen 2011 [facility] CHEMISTRY POC A O2 Sat 100.0 % 95.0 - 100.0 2011 Normal [facility] CHEMISTRY POC A BE -1 mMol/L -2-2 - 2 2011 Normal [facility] CHEMISTRY POC A PCO2 52 mm[Hg] 35 - 45 2011 [facility] CHEMISTRY POC A HCO3 26 mMol/L 22 - 26 2011 Normal [facility] CHEMISTRY POC A PO2 333 mm[Hg] 80 - 100 2011 [facility] CHEMISTRY POC A Temp 37.0 Nora 2011 NA [facility] CHEMISTRY POC A pH 7.30 7.35 - 7.45 2011 LOW [facility] CHEMISTRY POC A Source ART 2011 NA [facility] CHEMISTRY POC A Ca Ion 1.20 mMol/L 1.16 - 1.30 2011 Normal [facility] CHEMISTRY POC A pH 7.31 7.35 - 7.45 2011 LOW [facility] CHEMISTRY POC A Hct 31.0 % 36.0 - 48.0 2011 LOW [facility] CHEMISTRY POC A BE 0 mMol/L -2-2 - 2 2011 Normal [facility] CHEMISTRY POC A HCO3 26 mMol/L 22 - 26 2011 Normal [facility] CHEMISTRY POC A PO2 405 mm[Hg] 80 - 100 2011 [facility] CHEMISTRY POC A O2 Sat 100.0 % 95.0 - 100.0 2011 Normal [facility] CHEMISTRY POC A Glu 242 mg/dL 65 - 110 2011 [facility] CHEMISTRY POC A LA 2.3 mMol/L 0.5 - 2.2 2011 [facility] CHEMISTRY POC A PCO2 52 mm[Hg] 35 - 45 2011 [facility] CHEMISTRY POC A Na 141 meq/L 135 - 145 2011 Normal [facility] CHEMISTRY POC A K 2.6 meq/L 3.5 - 5.1 2011 [facility] P[facility] A Temp 37.0 Nora 2011 NA [facility] CHEMISTRY POC A Source ART 2011 NA [facility] CHEMISTRY POC A Ca Ion 1.02 mMol/L 1.16 - 1.30 2011 LOW [facility] CHEMISTRY POC A K 2.7 meq/L 3.5 - 5.1 2011 [facility] CHEMISTRY POC A Glu 200 mg/dL 65 - 110 2011 [facility] CHEMISTRY POC A BE -3 mMol/L -2-2 - 2 2011 LOW [facility] CHEMISTRY POC A HCO3 22 mMol/L 22 - 26 2011 Normal [facility] CHEMISTRY POC A Na 144 meq/L 135 - 145 2011 Normal [facility] CHEMISTRY POC A O2 Sat 100.0 % 95.0 - 100.0 2011 Normal [facility] CHEMISTRY POC A Hct 24.0 % 36.0 - 48.0 2011 LOW [facility] CHEMISTRY POC A LA 1.3 mMol/L 0.5 - 2.2 2011 Normal [facility] CHEMISTRY POC A PCO2 34 mm[Hg] 35 - 45 2011 [facility] CHEMISTRY POC A PO2 265 mm[Hg] 80 - 100 2011 [facility] CHEMISTRY POC A pH 7.41 7.35 - 7.45 2011 Normal [facility] CHEMISTRY POC A Source ART 2011 [facility] CHEMISTRY POC A Temp 37.0 Nora 2011 NA [facility] CHEMISTRY POC A Na 140 meq/L 135 - 145 2011 Normal [facility] CHEMISTRY POC A LA 1.0 mMol/L 0.5 - 2.2 2011 Normal [facility] CHEMISTRY POC A Ca Ion 1.01 mMol/L 1.16 - 1.30 2011 LOW [facility] CHEMISTRY POC A K 2.8 meq/L 3.5 - 5.1 2011 CRIT [facility] CHEMISTRY POC A Hct 23.0 % 36.0 - 48.0 2011 LOW [facility] CHEMISTRY POC A Glu 160 mg/dL 65 - 110 2011 [facility] BLOOD BANK RESULTS Antibody Scrn Negative (05/27/2011 19:00:00) 2011 Normal [facility] BLOOD BANK RESULTS ABO/Rh O POS 2011 Unknown [facility] BLOOD BANK RESULTS RBC product Product available (05/27/2011 14:00:00) 05/27/2011 Normal [facility] CHEMISTRY B/C Ratio 11 6 - 25 05/26/2011 Normal [facility] CHEMISTRY Globulin 2.5 g/dL 2.0 - 4.0 05/26/2011 Normal [facility] CHEMISTRY A/G Ratio 1.7 0.7 - 1.6 05/26/2011 [facility] CHEMISTRY AST 14 U/L 0 - 37 05/26/2011 Normal [facility] CHEMISTRY Total Protein 6.7 g/dL 6.4 - 8.4 05/26/2011 Normal [facility] CHEMISTRY Albumin Lvl 4.2 g/dL 3.5 - 5.0 05/26/2011 Normal [facility] CHEMISTRY ALT 25 U/L 0 - 65 05/26/2011 Normal [facility] CHEMISTRY Alk Phos 76 U/L 39 - 136 05/26/2011 Normal [facility] CHEMISTRY Bili Total 0.4 mg/dL 0.2 - 1.3 05/26/2011 Normal [facility] CHEMISTRY Valproic Acid Lvl 39 ug/ml 50 - 100 05/26/2011 LOW [facility] URINALYSIS UA Ketones Trace *ABN* (05/26/2011 06:45:00) Negative 05/26/2011 ABN [facility] URINALYSIS UA Bili Negative *NA* (05/26/2011 06:45:00) Negative 05/26/2011 NA [facility] URINALYSIS UA Protein Negative (05/26/2011 06:45:00) Negative 05/26/2011 Normal [facility] URINALYSIS UA pH 7.0 5.0 - 8.0 05/26/2011 Normal [facility] URINALYSIS UA Spec Grav 1.015 <=1.030 05/26/2011 Normal [facility] URINALYSIS UA Turbidity Slight Cloudy (05/26/2011 06:45:00) Clear 05/26/2011 Normal [facility] URINALYSIS UA Color Yellow *NA* (05/26/2011 06:45:00) Yellow 05/26/2011 NA [facility] URINALYSIS UA Glucose >=1000 mg/dL *ABN* (05/26/2011 06:45:00) Negative 05/26/2011 ABN [facility] URINALYSIS UA Leuk Est Negative (05/26/2011 06:45:00) Negative 05/26/2011 Normal [facility] URINALYSIS UA Blood Trace *ABN* (05/26/2011 06:45:00) Negative 05/26/2011 ABN [facility] URINALYSIS UA Urobilinogen 0.2 EU/dL 0.1 - 1.0 05/26/2011 Normal [facility] URINALYSIS UA Nitrite Negative (05/26/2011 06:45:00) Negative 05/26/2011 Normal [facility] URINALYSIS UA Sq Epi Moderate /LPF *ABN* (05/26/2011 06:45:00) Few 05/26/2011 ABN [facility] URINALYSIS UA WBC 3-5 /HPF (05/26/2011 06:45:00) None Seen 05/26/2011 Normal [facility] URINALYSIS Micro? Performed (05/26/2011 06:45:00) 05/26/2011 Normal [facility] URINALYSIS UA RBC 3-5 /HPF *ABN* (05/26/2011 06:45:00) 0 - 2 05/26/2011 ABN [facility] URINALYSIS UA Bacteria Occasional /HPF (05/26/2011 06:45:00) None Seen 05/26/2011 Normal [facility] CHEMISTRY Valproic Acid Lvl 83 ug/ml 50 - 100 05/22/2011 Normal [facility] CHEMISTRY Bili Indirect 0.2 mg/dL 0.0 - 1.0 05/22/2011 Normal [facility] CHEMISTRY Bili Total 0.3 mg/dL 0.2 - 1.3 05/22/2011 Normal [facility] CHEMISTRY Bili Direct 0.1 mg/dL 0.0 - 0.3 05/22/2011 Normal [facility] CHEMISTRY Globulin 2.5 g/dL 2.0 - 4.0 05/22/2011 Normal [facility] CHEMISTRY Total Protein 6.2 g/dL 6.4 - 8.4 05/22/2011 LOW [facility] CHEMISTRY A/G Ratio 1.5 0.7 - 1.6 05/22/2011 Normal [facility] CHEMISTRY AST 8 U/L 0 - 37 05/22/2011 Normal [facility] CHEMISTRY ALT 13 U/L 0 - 65 05/22/2011 Normal [facility] CHEMISTRY Alk Phos 60 U/L 39 - 136 05/22/2011 Normal [facility] CHEMISTRY Albumin Lvl 3.7 g/dL 3.5 - 5.0 05/22/2011 Normal [facility] CHEMISTRY BUN 14 mg/dL 7 - 22 05/22/2011 Normal [facility] CHEMISTRY Glucose Lvl 219 mg/dL 05/22/2011 NA 1Interpretive Data: Reference Ranges : 0 - 7 days : 41 - 90 mg/dL7 days - 150 yrs : 70 - 99 mg/dL (fasting), based on the clinical recommendations of the [employer]. [facility] CHEMISTRY Creatinine Lvl 0.7 mg/dL 0.5 - 1.4 05/22/2011 Normal [facility] CHEMISTRY Calcium Lvl 9.0 mg/dL 8.5 - 10.5 05/22/2011 Normal [facility] CHEMISTRY AGAP 15.2 meq/L 10.0 - 20.0 05/22/2011 Normal [facility] CHEMISTRY Chloride Lvl 101 meq/L 95 - 109 05/22/2011 Normal [facility] CHEMISTRY CO2 28 meq/L 24 - 32 05/22/2011 Normal [facility] CHEMISTRY Sodium Lvl 141 meq/L 135 - 145 05/22/2011 Normal [facility] CHEMISTRY Potassium Lvl 3.2 meq/L 3.5 - 5.1 05/22/2011 [facility] HEMATOLOGY INR 1.11 0.85 - 1.17 05/22/2011 Normal 2Interpretive Data: RECOMMENDED RANGES FOR PROTIME INR: 2.0-3.0 for most medical and surgical thromboembolic states. 2.5-3.5 for artificial heart valves and recurrent embolism.INR SHOULD BE USED ONLY FOR PATIENTS ON STABLE ANTICOAGULANT THERAPY. [facility] HEMATOLOGY PTT 26.5 s 22.9 - 35.8 05/22/2011 Normal 3Interpretive Data: Heparin Therapeutic Range: 57 - 92 Seconds [facility] HEMATOLOGY PT 14.3 s 12.0 - 14.7 05/22/2011 Normal [facility] HEMATOLOGY WBC 3.4 K/CMM 3.7 - 10.4 05/22/2011 [facility] HEMATOLOGY Hgb 13.0 g/dL 12.0 - 16.0 05/22/2011 Normal [facility] HEMATOLOGY RBC 4.27 M/CMM 4.20 - 5.40 05/22/2011 Normal [facility] HEMATOLOGY MPV 8.6 fL 7.4 - 10.4 05/22/2011 Normal [facility] HEMATOLOGY MCHC 35.1 g/dL 32.0 - 36.0 05/22/2011 Normal [facility] HEMATOLOGY Platelet 107 K/CMM 133 - 450 05/22/2011 [facility] HEMATOLOGY Hct 37.0 % 36.0 - 48.0 05/22/2011 Normal [facility] HEMATOLOGY MCV 86.8 fL 81.0 - 99.0 05/22/2011 Normal [facility] HEMATOLOGY MCH 30.4 pg 27.0 - 31.0 05/22/2011 Normal [facility] HEMATOLOGY RDW 14.4 % 11.5 - 14.5 05/22/2011 Normal [facility] HEMATOLOGY Basophils # 0.0 K/CMM 0.0 - 0.2 05/22/2011 Normal [facility] HEMATOLOGY Eosinophils # 0.0 K/CMM 0.0 - 0.5 05/22/2011 [facility] HEMATOLOGY Monocytes # 0.4 K/CMM 0.0 - 0.8 05/22/2011 Normal [facility] HEMATOLOGY Lymphocytes # 1.6 K/CMM 1.0 - 5.5 05/22/2011 [facility] HEMATOLOGY Lymphocytes 49.1 % 20.0 - 40.0 05/22/2011 [facility] HEMATOLOGY Segs 39.0 % 45.0 - 75.0 05/22/2011 [facility] HEMATOLOGY Basophils 0.2 % 0.0 - 1.0 05/22/2011 Normal [facility] HEMATOLOGY Segs-Bands # 1.3 K/CMM 1.5 - 8.1 05/22/2011 LOW [facility] HEMATOLOGY Eosinophils 0.5 % 0.0 - 4.0 05/22/2011 Normal [facility] HEMATOLOGY Monocytes 11.2 % 2.0 - 12.0 05/22/2011 Normal [facility] CHEMISTRY U Preg Negative (03/11/2011 21:46:00) ?? >Negative 03/12/2011 Normal [facility] CHEMISTRY AST 12.0 U/L 0 - 37 03/11/2011 Normal [facility] CHEMISTRY ALT 15.0 U/L 0 - 65 03/11/2011 Normal [facility] CHEMISTRY Alk Phos 62.0 U/L 39 - 136 03/11/2011 Normal [facility] CHEMISTRY Albumin Lvl 3.7 g/dL 3.5 - 5.0 03/11/2011 Normal [facility] CHEMISTRY Bili Total 0.3 mg/dL 0.2 - 1.3 03/11/2011 Normal [facility] CHEMISTRY Total Protein 6.1 g/dL 6.4 - 8.4 03/11/2011 LOW [facility] CHEMISTRY Bili Direct 0.1 mg/dL 0.0 - 0.3 03/11/2011 Normal [facility] CHEMISTRY A/G Ratio 1.5 0.7 - 1.6 03/11/2011 Normal [facility] CHEMISTRY Bili Indirect 0.2 mg/dL 0.0 - 1.0 03/11/2011 Normal [facility] CHEMISTRY Globulin 2.4 g/dL 2.0 - 4.0 03/11/2011 Normal [facility] CHEMISTRY AGAP 15.6 meq/L 10.0 - 20.0 03/11/2011 Normal [facility] CHEMISTRY Calcium Lvl 8.3 mg/dL 8.5 - 10.5 03/11/2011 LOW [facility] CHEMISTRY Creatinine Lvl 0.6 mg/dL 0.5 - 1.4 03/11/2011 Normal [facility] CHEMISTRY Glucose Lvl 107.0 mg/dL 03/11/2011 NA 1Interpretive Data: Reference Ranges : 0 - 7 days : 41 - 90 mg/dL7 days - 150 yrs : 70 - 99 mg/dL (fasting), based on the clinical recommendations of the [employer]. [facility] CHEMISTRY CO2 27.0 meq/L 24 - 32 03/11/2011 Normal [facility] CHEMISTRY BUN 13.0 mg/dL 7 - 22 03/11/2011 Normal [facility] CHEMISTRY Chloride Lvl 105.0 meq/L 95 - 109 03/11/2011 Normal [facility] CHEMISTRY Potassium Lvl 3.6 meq/L 3.5 - 5.1 03/11/2011 Normal [facility] CHEMISTRY Sodium Lvl 144.0 meq/L 135 - 145 03/11/2011 Normal [facility] CHEMISTRY Ammonia 92.0 umol/L <<=45.0 03/11/2011 [facility] CHEMISTRY Valproic Acid Lvl 99.0 ug/ml 50 - 100 03/11/2011 Normal [facility] CHEMISTRY Zonisamide Lvl 9.2 microgram/mL >10.0 - 40.0 03/11/2011 LOW 2Result Comment: Test Performed at:[employer] [facility] [place] [address] Usha Chambers MD, PhD [facility] HEMATOLOGY Eosinophils # 0.0 K/CMM 0.0 - 0.5 03/11/2011 Normal [facility] HEMATOLOGY Basophils # 0.0 K/CMM 0.0 - 0.2 03/11/2011 Normal [facility] HEMATOLOGY Monocytes 10.6 % 2.0 - 12.0 03/11/2011 Normal [facility] HEMATOLOGY Lymphocytes 49.4 % 20.0 - 40.0 03/11/2011 HI [facility] HEMATOLOGY Basophils 0.2 % 0.0 - 1.0 03/11/2011 Normal [facility] HEMATOLOGY Eosinophils 0.0 % 0.0 - 4.0 03/11/2011 Normal [facility] HEMATOLOGY Segs-Bands # 1.2 K/CMM 1.5 - 8.1 03/11/2011 LOW [facility] HEMATOLOGY Lymphocytes # 1.5 K/CMM 1.0 - 5.5 03/11/2011 [facility] HEMATOLOGY Segs 39.8 % 45.0 - 75.0 03/11/2011 [facility] HEMATOLOGY Monocytes # 0.3 K/CMM 0.0 - 0.8 03/11/2011 [facility] HEMATOLOGY Platelet 118.0 K/CMM 133 - 450 03/11/2011 [facility] HEMATOLOGY MPV 8.3 fL 7.4 - 10.4 03/11/2011 Normal [facility] HEMATOLOGY MCHC 35.7 g/dL 32.0 - 36.0 03/11/2011 [facility] HEMATOLOGY MCH 32.3 pg 27.0 - 31.0 03/11/2011 [facility] HEMATOLOGY RDW 12.5 % 11.5 - 14.5 03/11/2011 [facility] HEMATOLOGY MCV 90.4 fL 81.0 - 99.0 03/11/2011 [facility] HEMATOLOGY WBC 3.1 K/CMM 3.7 - 10.4 03/11/2011 [facility] HEMATOLOGY Hgb 12.0 g/dL 12.0 - 16.0 03/11/2011 [facility] HEMATOLOGY Hct 33.6 % 36.0 - 48.0 03/11/2011 [facility] HEMATOLOGY RBC 3.72 M/CMM 4.20 - 5.40 03/11/2011 [facility] Vital Signs Vital Sign Value Date Comments Source Weight 195 12/18/2016 [facility] Systolic (mm Hg) 126 12/18/2016 [facility] Respitory Rate 16 12/18/2016 [facility] [facility] Heart Rate 94 12/18/2016 [facility] Temperature Oral (F) 99.2 F 12/18/2016 [facility] Diastolic (mm Hg) 89 12/18/2016 [facility] Systolic (mm Hg) 114 10/18/2016 [facility] Diastolic (mm Hg) 68 10/18/2016 [facility] Respitory Rate 14 10/18/2016 [facility] Respitory Rate 17 10/18/2016 [facility] Systolic (mm Hg) 114 10/18/2016 [facility] Diastolic (mm Hg) 72 10/18/2016 [facility] Systolic (mm Hg) 104 10/18/2016 [facility] Diastolic (mm Hg) 77 10/18/2016 [facility] Respitory Rate 21 10/18/2016 [facility] Heart Rate 80 10/18/2016 [facility] Heart Rate 83 10/11/2016 [facility] Weight 98.182 10/11/2016 [facility] Height 165.1 cm 10/11/2016 [facility] BMI Calculated 36.02 10/11/2016 [facility] Weight 228.6 06/24/2016 [facility] Systolic (mm Hg) 108 06/24/2016 [facility] Respitory Rate 16 06/24/2016 [facility] Heart Rate 100 06/24/2016 [facility] Temperature Oral (F) 96.7 F 06/24/2016 [facility] Diastolic (mm Hg) 70 06/24/2016 [facility] Weight 218 02/07/2016 [facility] Systolic (mm Hg) 142 02/07/2016 [facility] Respitory Rate 16 02/07/2016 [facility] Heart Rate 91 02/07/2016 [facility] Temperature Oral (F) 96.7 F 02/07/2016 [facility] Diastolic (mm Hg) 82 02/07/2016 [facility] Temperature Oral (F) 97.7 F 11/18/2013 [facility] Heart Rate 84 11/18/2013 [facility] Respitory Rate 16 11/18/2013 [facility] Diastolic (mm Hg) 70 11/18/2013 [facility] Systolic (mm Hg) 117 11/18/2013 [facility] Temperature Oral (F) 96.8 F 11/18/2013 [facility] Diastolic (mm Hg) 88 11/18/2013 [facility] Systolic (mm Hg) 132 11/18/2013 [facility] Heart Rate 100 11/18/2013 [facility] Respitory Rate 18 11/18/2013 [facility] Heart Rate 85 11/17/2013 [facility] Temperature Oral (F) 96.9 F 11/17/2013 [facility] Diastolic (mm Hg) 93 11/17/2013 [facility] Systolic (mm Hg) 130 11/17/2013 [facility] Respitory Rate 16 11/17/2013 [facility] BMI Calculated 33.02 11/15/2013 [facility] Weight 90 11/15/2013 [facility] Height 165.1 cm 11/15/2013 [facility] Respitory Rate 14 01/29/2013 [facility] Temperature Oral (F) 98.4 F 01/29/2013 [facility] Systolic (mm Hg) 111 01/29/2013 [facility] Heart Rate 96 01/29/2013 [facility] Diastolic (mm Hg) 68 01/29/2013 [facility] Diastolic (mm Hg) 79 01/29/2013 [facility] Systolic (mm Hg) 136 01/29/2013 [facility] Respitory Rate 18 01/29/2013 [facility] Heart Rate 99 01/29/2013 [facility] Systolic (mm Hg) 127 01/29/2013 [facility] Diastolic (mm Hg) 87 01/29/2013 [facility] Heart Rate 112 01/29/2013 [facility] Respitory Rate 18 01/29/2013 [facility] Temperature Oral (F) 98.6 F 01/29/2013 [facility] Weight 84.545 01/29/2013 [facility] Height 165.1 cm 01/29/2013 [facility] Temperature Oral (F) 98.8 F 01/29/2013 [facility] Temperature Oral (F) 98.8 F 03/24/2012 [facility] Heart Rate 96 03/24/2012 [facility] Diastolic (mm Hg) 85 03/24/2012 [facility] Respitory Rate 18 03/24/2012 [facility] Systolic (mm Hg) 121 03/24/2012 [facility] Temperature Oral (F) 97.3 F 03/24/2012 [facility] Diastolic (mm Hg) 87 03/24/2012 [facility] Respitory Rate 18 03/24/2012 [facility] Systolic (mm Hg) 122 03/24/2012 [facility] Heart Rate 96 03/24/2012 [facility] Diastolic (mm Hg) 76 03/24/2012 [facility] Systolic (mm Hg) 107 03/24/2012 [facility] Respitory Rate 18 03/24/2012 [facility] Heart Rate 91 03/24/2012 [facility] Temperature Oral (F) 99.0 F 03/24/2012 [facility] Weight 77.273 03/22/2012 [facility] Height 165.10 cm 03/22/2012 [facility] Temperature Oral (F) 98.2 F 12/01/2011 [facility] Diastolic (mm Hg) 66 12/01/2011 [facility] Systolic (mm Hg) 104 12/01/2011 [facility] Respitory Rate 18 12/01/2011 [facility] Heart Rate 78 12/01/2011 [facility] Diastolic (mm Hg) 68 11/30/2011 [facility] Systolic (mm Hg) 100 11/30/2011 [facility] Respitory Rate 17 11/30/2011 [facility] Temperature Oral (F) 98.8 F 11/30/2011 [facility] Heart Rate 74 11/30/2011 [facility] Weight 72.727 11/30/2011 [facility] Height 165.10 cm 11/30/2011 [facility] Heart Rate 85 07/24/2011 [facility] Systolic (mm Hg) 101 07/24/2011 [facility] Diastolic (mm Hg) 48 07/24/2011 [facility] Temperature Oral (F) 97.6 F 07/24/2011 [facility] Respitory Rate 18 07/24/2011 [facility] Systolic (mm Hg) 92 07/24/2011 [facility] Diastolic (mm Hg) 63 07/24/2011 [facility] Heart Rate 85 07/24/2011 [facility] Temperature Oral (F) 97.3 F 07/24/2011 [facility] Systolic (mm Hg) 106 07/23/2011 [facility] Diastolic (mm Hg) 67 07/23/2011 [facility] Temperature Oral (F) 98.0 F 07/23/2011 [facility] Heart Rate 96 07/23/2011 [facility] Respitory Rate 19 07/23/2011 [facility] Respitory Rate 18 07/22/2011 [facility] Weight 72.273 07/22/2011 [facility] Height 165.10 cm 07/22/2011 [facility] Heart Rate 81 06/19/2011 [facility] Systolic (mm Hg) 121 06/19/2011 [facility] Temperature Oral (F) 98.5 F 06/19/2011 [facility] Diastolic (mm Hg) 78 06/19/2011 [facility] Temperature Oral (F) 97.9 F 06/19/2011 [facility] Respitory Rate 20 06/19/2011 [facility] Heart Rate 99 06/19/2011 [facility] Diastolic (mm Hg) 73 06/19/2011 [facility] Systolic (mm Hg) 108 06/19/2011 [facility] Diastolic (mm Hg) 74 06/18/2011 [facility] Heart Rate 69 06/18/2011 [facility] Temperature Oral (F) 97.0 F 06/18/2011 [facility] Respitory Rate 18 06/18/2011 [facility] Systolic (mm Hg) 118 06/18/2011 [facility] Respitory Rate 20 06/18/2011 [facility] Weight 72.727 06/16/2011 [facility] Height 165.10 cm 06/16/2011 [facility] Height 154.94 cm 06/13/2011 [facility] Weight 55.000 06/13/2011 [facility] Diastolic (mm Hg) 76 06/07/2011 [facility] Systolic (mm Hg) 112 06/07/2011 [facility] Heart Rate 95 06/07/2011 [facility] Temperature Oral (F) 98.2 F 06/07/2011 [facility] Systolic (mm Hg) 119 06/07/2011 [facility] Diastolic (mm Hg) 80 06/07/2011 [facility] Respitory Rate 18 06/07/2011 [facility] Temperature Oral (F) 98.3 F 06/07/2011 [facility] Heart Rate 90 06/07/2011 [facility] Diastolic (mm Hg) 80 06/07/2011 [facility] Systolic (mm Hg) 119 06/07/2011 [facility] Respitory Rate 18 06/07/2011 [facility] Heart Rate 76 06/07/2011 [facility] Temperature Oral (F) 97.7 F 06/07/2011 [facility] Respitory Rate 18 06/06/2011 [facility] Weight 77.273 05/26/2011 [facility] Height 170.18 cm 05/26/2011 [facility] Diastolic (mm Hg) 76 05/22/2011 [facility] Respitory Rate 18 05/22/2011 [facility] Systolic (mm Hg) 123 05/22/2011 [facility] Heart Rate 67 05/22/2011 [facility] Respitory Rate 18 05/22/2011 [facility] Systolic (mm Hg) 117 05/22/2011 [facility] Diastolic (mm Hg) 79 05/22/2011 [facility] Heart Rate 63 05/22/2011 [facility] Systolic (mm Hg) 127 05/22/2011 [facility] Diastolic (mm Hg) 84 05/22/2011 [facility] Heart Rate 62 05/22/2011 [facility] Respitory Rate 18 05/22/2011 [facility] Temperature Oral (F) 98.4 F 05/22/2011 [facility] Temperature Oral (F) 97.8 F 05/22/2011 [facility] Height 165.10 cm 05/22/2011 [facility] Weight 77.273 05/22/2011 [facility] Temperature Oral (F) 98.5 F 03/20/2011 [facility] Heart Rate 70.0 03/20/2011 [facility] Diastolic (mm Hg) 78.0 03/20/2011 [facility] Systolic (mm Hg) 117.0 03/20/2011 [facility] Respitory Rate 18.0 03/20/2011 [facility] Diastolic (mm Hg) 82.0 03/20/2011 [facility] Respitory Rate 20.0 03/20/2011 [facility] Systolic (mm Hg) 117.0 03/20/2011 [facility] Heart Rate 89.0 03/20/2011 [facility] Temperature Oral (F) 98.9 F 03/20/2011 [facility] Temperature Oral (F) 98.1 F 03/19/2011 [facility] Diastolic (mm Hg) 80.0 03/19/2011 [facility] Heart Rate 70.0 03/19/2011 [facility] Systolic (mm Hg) 125.0 03/19/2011 [facility] Respitory Rate 18.0 03/19/2011 [facility] Weight 77.273 03/11/2011 [facility] Height 165.1 cm 03/11/2011 [facility] Encounters Location Location Details Encounter Type Encounter Number Reason For Visit Attending Provider ADM Date DC Date Status Source [facility] MAXINE [id number] ZUNILDA BRIAN 01/21/2011 01/21/2011 Active [facility] Inpatient [id number] DANETTE PERRY 03/11/2011 03/20/2011 Active [facility] OU [id number] EMUGisele PERRY 05/22/2011 05/22/2011 Active [facility] Inpatient [id number] GENE TARANGO 05/26/2011 06/07/2011 Active [facility] Outpatient [id number] DELTA MINOR 06/13/2011 Active [facility] Inpatient [id number] GENE TARANGO 06/15/2011 06/19/2011 Active [facility] Inpatient [id number] JOSE GUADALUPE JOCELYNN ASHANTI 07/21/2011 07/24/2011 Active [facility] TONI [id number] GENE TARANGO 11/30/2011 12/01/2011 Active [facility] Inpatient [id number] ELIZABETH PATE 03/22/2012 03/24/2012 Active [facility] Emergency [id number] MERLINE ARCE 01/28/2013 01/29/2013 Active [facility] Inpatient [id number] Emanuel Michaels 11/15/2013 11/18/2013 [facility] refilled 30X2 [id number] 12/28/2014 12/28/2014 [facility] refilled 30X2 [id number] 12/28/2014 12/28/2014 [facility] refilled 30X2 [id number] 12/28/2014 12/28/2014 [facility] refilled 30X2 [id number] 12/28/2014 12/28/2014 [facility] refilled 30X2 [id number] 12/28/2014 12/28/2014 [facility] refilled 30X2 [id number] 12/28/2014 12/28/2014 [facility] refilled 30X2 [id number] 12/28/2014 12/28/2014 [facility] refilled 30X2 [id number] 12/28/2014 12/28/2014 [facility] refilled 30X2 [id number] 12/28/2014 12/28/2014 [facility] refilled 30X2 [id number] 12/28/2014 12/28/2014 [facility] refilled 30X2 [id number] 12/28/2014 12/28/2014 [facility] refilled 30X2 [id number] 12/28/2014 12/28/2014 [facility] refilled 30X2 [id number] 12/28/2014 12/28/2014 [facility] refilled 30X2 [id number] 12/28/2014 12/28/2014 [facility] refilled 30X2 [id number] 12/28/2014 12/28/2014 [facility] refilled 30X2 [id number] 12/28/2014 12/28/2014 [facility] refilled 30X2 [id number] 12/28/2014 12/28/2014 [facility] refilled 30X2 [id number] 12/28/2014 12/28/2014 [facility] refilled 30X2 [id number] 12/28/2014 12/28/2014 [facility] refilled 30X2 [id number] 12/28/2014 12/28/2014 [facility] refilled 30X2 [id number] 12/28/2014 12/28/2014 [facility] refilled 30X2 [id number] 12/28/2014 12/28/2014 [facility] refilled 30X2 [id number] 12/28/2014 12/28/2014 [facility] refilled 30X2 [id number] 12/28/2014 12/28/2014 [facility] refilled 30X2 [id number] 12/28/2014 12/28/2014 [facility] refilled 30X2 [id number] 12/28/2014 12/28/2014 [facility] refilled 30X2 [id number] 12/28/2014 12/28/2014 [facility] refilled 30X2 [id number] 12/28/2014 12/28/2014 [facility] refilled 30X2 [id number] 12/28/2014 12/28/2014 [facility] refill [id number] 01/05/2015 01/05/2015 [facility] refill [id number] 01/05/2015 01/05/2015 [facility] refill [id number] 01/05/2015 01/05/2015 [facility] refill [id number] 01/05/2015 01/05/2015 [facility] refill [id number] 01/05/2015 01/05/2015 [facility] refill [id number] 01/05/2015 01/05/2015 [facility] refill [id number] 01/05/2015 01/05/2015 [facility] refill [id number] 01/05/2015 01/05/2015 [facility] refill [id number] 01/05/2015 01/05/2015 [facility] refill [id number] 01/05/2015 01/05/2015 [facility] refill [id number] 01/05/2015 01/05/2015 [facility] refill [id number] 01/05/2015 01/05/2015 [facility] refill [id number] 01/05/2015 01/05/2015 [facility] refill [id number] 01/05/2015 01/05/2015 [facility] refill [id number] 01/05/2015 01/05/2015 [facility] refill [id number] 01/05/2015 01/05/2015 [facility] refill [id number] 01/05/2015 01/05/2015 [facility] refill [id number] 01/05/2015 01/05/2015 [facility] refill [id number] 01/05/2015 01/05/2015 [facility] refill [id number] 01/05/2015 01/05/2015 [facility] refill [id number] 01/05/2015 01/05/2015 [facility] refill [id number] 01/05/2015 01/05/2015 [facility] refill [id number] 01/05/2015 01/05/2015 [facility] refill [id number] 01/05/2015 01/05/2015 [facility] refill [id number] 01/05/2015 01/05/2015 [facility] refill [id number] 01/05/2015 01/05/2015 [facility] refill [id number] 01/05/2015 01/05/2015 [facility] refill [id number] 01/05/2015 01/05/2015 [facility] refill [id number] 01/05/2015 01/05/2015 [facility] Scheduling - Done [id number] 01/05/2015 01/05/2015 [facility] - Done [id number] 01/05/2015 01/05/2015 [facility] - Done [id number] 01/05/2015 01/05/2015 [facility] - Done [id number] 01/05/2015 01/05/2015 [facility] - Done [id number] 01/05/2015 01/05/2015 [facility] - Done [id number] 01/05/2015 01/05/2015 [facility] - Done [id number] 01/05/2015 01/05/2015 [facility] - Done [id number] 01/05/2015 01/05/2015 [facility] - Done [id number] 01/05/2015 01/05/2015 [facility] - Done [id number] 01/05/2015 01/05/2015 [facility] - Done [id number] 01/05/2015 01/05/2015 [facility] - Done [id number] 01/05/2015 01/05/2015 [facility] - Done [id number] 01/05/2015 01/05/2015 [facility] - Done [id number] 01/05/2015 01/05/2015 [facility] - Done [id number] 01/05/2015 01/05/2015 [facility] - Done [id number] 01/05/2015 01/05/2015 [facility] - Done [id number] 01/05/2015 01/05/2015 [facility] - Done [id number] 01/05/2015 01/05/2015 [facility] - Done [id number] 01/05/2015 01/05/2015 [facility] - Done [id number] 01/05/2015 01/05/2015 [facility] - Done [id number] 01/05/2015 01/05/2015 [facility] - Done [id number] 01/05/2015 01/05/2015 [facility] - Done [id number] 01/05/2015 01/05/2015 [facility] - Done [id number] 01/05/2015 01/05/2015 [facility] - Done [id number] 01/05/2015 01/05/2015 [facility] - Done [id number] 01/05/2015 01/05/2015 [facility] - Done [id number] 01/05/2015 01/05/2015 [facility] - Done [id number] 01/05/2015 01/05/2015 [facility] - Done [id number] 01/05/2015 01/05/2015 [facility] Needs call back from Medical Staff- No answer [id number] 01/19/2015 01/19/2015 [facility] Needs call back from Medical Staff- No answer [id number] 01/19/2015 01/19/2015 [facility] Needs call back from Medical Staff- No answer [id number] 01/19/2015 01/19/2015 [facility] Needs call back from Medical Staff- No answer [id number] 01/19/2015 01/19/2015 [facility] Needs call back from Medical Staff- No answer [id number] 01/19/2015 01/19/2015 [facility] Needs call back from Medical Staff- No answer [id number] 01/19/2015 01/19/2015 [facility] Needs call back from Medical Staff- No answer [id number] 01/19/2015 01/19/2015 [facility] Needs call back from Medical Staff- No answer [id number] 01/19/2015 01/19/2015 [facility] Needs call back from Medical Staff- No answer [id number] 01/19/2015 01/19/2015 [facility] Needs call back from Medical Staff- No answer [id number] 01/19/2015 01/19/2015 [facility] Needs call back from Medical Staff- No answer [id number] 01/19/2015 01/19/2015 [facility] Needs call back from Medical Staff- No answer [id number] 01/19/2015 01/19/2015 [facility] Needs call back from Medical Staff- No answer [id number] 01/19/2015 01/19/2015 [facility] Needs call back from Medical Staff- No answer [id number] 01/19/2015 01/19/2015 [facility] Needs call back from Medical Staff- No answer [id number] 01/19/2015 01/19/2015 [facility] Needs call back from Medical Staff- No answer [id number] 01/19/2015 01/19/2015 [facility] Needs call back from Medical Staff- No answer [id number] 01/19/2015 01/19/2015 [facility] Needs call back from Medical Staff- No answer [id number] 01/19/2015 01/19/2015 [facility] Needs call back from Medical Staff- No answer [id number] 01/19/2015 01/19/2015 [facility] Needs call back from Medical Staff- No answer [id number] 01/19/2015 01/19/2015 [facility] Needs call back from Medical Staff- No answer [id number] 01/19/2015 01/19/2015 [facility] Needs call back from Medical Staff- No answer [id number] 01/19/2015 01/19/2015 [facility] Needs call back from Medical Staff- No answer [id number] 01/19/2015 01/19/2015 [facility] Needs call back from Medical Staff- No answer [id number] 01/19/2015 01/19/2015 [facility] Needs call back from Medical Staff- No answer [id number] 01/19/2015 01/19/2015 [facility] Needs call back from Medical Staff- No answer [id number] 01/19/2015 01/19/2015 [facility] Needs call back from Medical Staff- No answer [id number] 01/19/2015 01/19/2015 [facility] Needs call back from Medical Staff- No answer [id number] 01/19/2015 01/19/2015 [facility] Needs call back from Medical Staff- No answer [id number] 01/19/2015 01/19/2015 [facility] Question- Done [id number] 01/26/2015 01/26/2015 [facility] Question- Done [id number] 01/26/2015 01/26/2015 [facility] Question- Done [id number] 01/26/2015 01/26/2015 [facility] Question- Done [id number] 01/26/2015 01/26/2015 [facility] Question- Done [id number] 01/26/2015 01/26/2015 [facility] Question- Done [id number] 01/26/2015 01/26/2015 [facility] Question- Done [id number] 01/26/2015 01/26/2015 [facility] Question- Done [id number] 01/26/2015 01/26/2015 [facility] Question- Done [id number] 01/26/2015 01/26/2015 [facility] Question- Done [id number] 01/26/2015 01/26/2015 [facility] Question- Done [id number] 01/26/2015 01/26/2015 [facility] Question- Done [id number] 01/26/2015 01/26/2015 [facility] Question- Done [id number] 01/26/2015 01/26/2015 [facility] Question- Done [id number] 01/26/2015 01/26/2015 [facility] Question- Done [id number] 01/26/2015 01/26/2015 [facility] Question- Done [id number] 01/26/2015 01/26/2015 [facility] Question- Done [id number] 01/26/2015 01/26/2015 [facility] Question- Done [id number] 01/26/2015 01/26/2015 [facility] Question- Done [id number] 01/26/2015 01/26/2015 [facility] Question- Done [id number] 01/26/2015 01/26/2015 [facility] Question- Done [id number] 01/26/2015 01/26/2015 [facility] Question- Done [id number] 01/26/2015 01/26/2015 [facility] Question- Done [id number] 01/26/2015 01/26/2015 [facility] Question- Done [id number] 01/26/2015 01/26/2015 [facility] Question- Done [id number] 01/26/2015 01/26/2015 [facility] Question- Done [id number] 01/26/2015 01/26/2015 [facility] Question- Done [id number] 01/26/2015 01/26/2015 [facility] Question- Done [id number] 01/26/2015 01/26/2015 [facility] Question- Done [id number] 01/26/2015 01/26/2015 [facility] Medication Clarification Needed- Done [id number] 02/02/2015 02/02/2015 [facility] Medication Clarification Needed- Done [id number] 02/02/2015 02/02/2015 [facility] Medication Clarification Needed- Done [id number] 02/02/2015 02/02/2015 [facility] Medication Clarification Needed- Done [id number] 02/02/2015 02/02/2015 [facility] Medication Clarification Needed- Done [id number] 02/02/2015 02/02/2015 [facility] Medication Clarification Needed- Done [id number] 02/02/2015 02/02/2015 [facility] Medication Clarification Needed- Done [id number] 02/02/2015 02/02/2015 [facility] Medication Clarification Needed- Done [id number] 02/02/2015 02/02/2015 [facility] Medication Clarification Needed- Done [id number] 02/02/2015 02/02/2015 [facility] Medication Clarification Needed- Done [id number] 02/02/2015 02/02/2015 [facility] Medication Clarification Needed- Done [id number] 02/02/2015 02/02/2015 [facility] Medication Clarification Needed- Done [id number] 02/02/2015 02/02/2015 [facility] Medication Clarification Needed- Done [id number] 02/02/2015 02/02/2015 [facility] Medication Clarification Needed- Done [id number] 02/02/2015 02/02/2015 [facility] Medication Clarification Needed- Done [id number] 02/02/2015 02/02/2015 [facility] Medication Clarification Needed- Done [id number] 02/02/2015 02/02/2015 [facility] Medication Clarification Needed- Done [id number] 02/02/2015 02/02/2015 [facility] Medication Clarification Needed- Done [id number] 02/02/2015 02/02/2015 [facility] Medication Clarification Needed- Done [id number] 02/02/2015 02/02/2015 [facility] Medication Clarification Needed- Done [id number] 02/02/2015 02/02/2015 [facility] Medication Clarification Needed- Done [id number] 02/02/2015 02/02/2015 [facility] Medication Clarification Needed- Done [id number] 02/02/2015 02/02/2015 [facility] Medication Clarification Needed- Done [id number] 02/02/2015 02/02/2015 [facility] Medication Clarification Needed- Done [id number] 02/02/2015 02/02/2015 [facility] Medication Clarification Needed- Done [id number] 02/02/2015 02/02/2015 [facility] Medication Clarification Needed- Done [id number] 02/02/2015 02/02/2015 [facility] Medication Clarification Needed- Done [id number] 02/02/2015 02/02/2015 [facility] Medication Clarification Needed- Done [id number] 02/02/2015 02/02/2015 [facility] Medication Clarification Needed- Done [id number] 02/02/2015 02/02/2015 [facility] reschedule appt LM 02/09 [id number] 02/08/2015 02/08/2015 [facility] reschedule appt LM 02/09 [id number] 02/08/2015 02/08/2015 [facility]chedule appt LM 02/09 [id number] 02/08/2015 02/08/2015 [facility] reschedule appt LM 02/09 [id number] 02/08/2015 02/08/2015 [facility] reschedule appt LM 02/09 [id number] 02/08/2015 02/08/2015 [facility] reschedule appt LM 02/09 [id number] 02/08/2015 02/08/2015 [facility] reschedule appt LM 02/09 [id number] 02/08/2015 02/08/2015 [facility] reschedule appt LM 02/09 [id number] 02/08/2015 02/08/2015 [facility] reschedule appt LM 02/09 [id number] 02/08/2015 02/08/2015 [facility] reschedule appt LM 02/09 [id number] 02/08/2015 02/08/2015 [facility] reschedule appt LM 02/09 [id number] 02/08/2015 02/08/2015 [facility] reschedule appt LM 02/09 [id number] 02/08/2015 02/08/2015 [facility] reschedule appt LM 02/09 [id number] 02/08/2015 02/08/2015 [facility] reschedule appt LM 02/09 [id number] 02/08/2015 02/08/2015 [facility] reschedule appt LM 02/09 [id number] 02/08/2015 02/08/2015 [facility] reschedule appt LM 02/09 [id number] 02/08/2015 02/08/2015 [facility] reschedule appt LM 02/09 [id number] 02/08/2015 02/08/2015 [facility] reschedule appt LM 02/09 [id number] 02/08/2015 02/08/2015 [facility] reschedule appt LM 02/09 [id number] 02/08/2015 02/08/2015 [facility]chedule appt LM 02/09 [id number] 02/08/2015 02/08/2015 [facility]chedule appt LM 02/09 [id number] 02/08/2015 02/08/2015 [facility]chedule appt LM 02/09 [id number] 02/08/2015 02/08/2015 [facility] reschedule appt LM 02/09 [id number] 02/08/2015 02/08/2015 [facility]chedule appt LM 02/09 [id number] 02/08/2015 02/08/2015 [facility] reschedule appt LM 02/09 [id number] 02/08/2015 02/08/2015 [facility] reschedule appt LM 02/09 [id number] 02/08/2015 02/08/2015 [facility] reschedule appt LM 02/09 [id number] 02/08/2015 02/08/2015 [facility] reschedule appt LM 02/09 [id number] 02/08/2015 02/08/2015 [facility] reschedule appt LM 02/09 [id number] 02/08/2015 02/08/2015 [facility] lantus refilled [id number] 02/13/2015 02/13/2015 [facility] refilled [id number] 02/13/2015 02/13/2015 [facility] refilled [id number] 02/13/2015 02/13/2015 [facility] refilled [id number] 02/13/2015 02/13/2015 [facility] refilled [id number] 02/13/2015 02/13/2015 [facility] refilled [id number] 02/13/2015 02/13/2015 [facility] refilled [id number] 02/13/2015 02/13/2015 [facility] refilled [id number] 02/13/2015 02/13/2015 [facility] refilled [id number] 02/13/2015 02/13/2015 [facility] refilled [id number] 02/13/2015 02/13/2015 [facility] refilled [id number] 02/13/2015 02/13/2015 [facility] refilled [id number] 02/13/2015 02/13/2015 [facility] refilled [id number] 02/13/2015 02/13/2015 [facility] refilled [id number] 02/13/2015 02/13/2015 [facility] refilled [id number] 02/13/2015 02/13/2015 [facility] refilled [id number] 02/13/2015 02/13/2015 [facility] refilled [id number] 02/13/2015 02/13/2015 [facility] refilled [id number] 02/13/2015 02/13/2015 [facility] refilled [id number] 02/13/2015 02/13/2015 [facility] refilled [id number] 02/13/2015 02/13/2015 [facility] refilled [id number] 02/13/2015 02/13/2015 [facility] refilled [id number] 02/13/2015 02/13/2015 [facility] refilled [id number] 02/13/2015 02/13/2015 [facility] refilled [id number] 02/13/2015 02/13/2015 [facility] refilled [id number] 02/13/2015 02/13/2015 [facility] refilled [id number] 02/13/2015 02/13/2015 [facility] refilled [id number] 02/13/2015 02/13/2015 [facility] refilled [id number] 02/13/2015 02/13/2015 [facility] refilled [id number] 02/13/2015 02/13/2015 [facility] test strips refilled 30X5 [id number] 02/14/2015 02/14/2015 [facility] test strips refilled 30X5 [id number] 02/14/2015 02/14/2015 [facility] test strips refilled 30X5 [id number] 02/14/2015 02/14/2015 [facility] test strips refilled 30X5 [id number] 02/14/2015 02/14/2015 [facility] test strips refilled 30X5 [id number] 02/14/2015 02/14/2015 [facility] test strips refilled 30X5 [id number] 02/14/2015 02/14/2015 [facility] test strips refilled 30X5 [id number] 02/14/2015 02/14/2015 [facility] test strips refilled 30X5 [id number] 02/14/2015 02/14/2015 [facility] test strips refilled 30X5 [id number]-yr43-[id number] 02/14/2015 02/14/2015 [facility] test strips refilled 30X5 [id number] 02/14/2015 02/14/2015 [facility] test strips refilled 30X5 [id number] 02/14/2015 02/14/2015 [facility] test strips refilled 30X5 [id number] 02/14/2015 02/14/2015 [facility] test strips refilled 30X5 [id number] 02/14/2015 02/14/2015 [facility] strips refilled 30X5 [id number]-s2ifibm02b95 02/14/2015 02/14/2015 [facility] strips refilled 30X5 [id number] 02/14/2015 02/14/2015 [facility] strips refilled 30X5 [id number]-[id number] 02/14/2015 02/14/2015 [facility] test strips refilled 30X5 [id number] 02/14/2015 02/14/2015 [facility] test strips refilled 30X5 [id number] 02/14/2015 02/14/2015 [facility] test strips refilled 30X5 4ghl411g-[id number]-[id number] 02/14/2015 02/14/2015 [facility] test strips refilled 30X5 [id number]-b5om-81019db9v649 02/14/2015 02/14/2015 [facility] test strips refilled 30X5 [id number]-[id number] 02/14/2015 02/14/2015 [facility] test strips refilled 30X5 [id number] 02/14/2015 02/14/2015 [facility] test strips refilled 30X5 [id number] 02/14/2015 02/14/2015 [facility] test strips refilled 30X5 [id number] 02/14/2015 02/14/2015 [facility] strips refilled 30X5 [id number]-d5i1w982z78d 02/14/2015 02/14/2015 [facility] strips refilled 30X5 [id number]-w82jz0m332w0 02/14/2015 02/14/2015 [facility] test strips refilled 30X5 92r2lbu2-zuyd-9m12-[id number] 02/14/2015 02/14/2015 [facility] test strips refilled 30X5 [id number] 02/14/2015 02/14/2015 [facility] test strips refilled 30X5 [id number] 02/14/2015 02/14/2015 [facility] Question 02/24 [id number] 02/16/2015 02/16/2015 [facility] Question 02/24 [id number] 02/16/2015 02/16/2015 [facility] Question 02/24 [id number] 02/16/2015 02/16/2015 [facility] Question 02/24 [id number] 02/16/2015 02/16/2015 [facility] Question 02/24 [id number] 02/16/2015 02/16/2015 [facility] Question 02/24 [id number] 02/16/2015 02/16/2015 [facility] Question 02/24 [id number] 02/16/2015 02/16/2015 [facility] Question 02/24 [id number] 02/16/2015 02/16/2015 [facility] Question 02/24 [id number] 02/16/2015 02/16/2015 [facility] Question 02/24 [id number] 02/16/2015 02/16/2015 [facility] Question 02/24 [id number] 02/16/2015 02/16/2015 [facility] Question 02/24 [id number] 02/16/2015 02/16/2015 [facility] Question 02/24 [id number] 02/16/2015 02/16/2015 [facility] Question 02/24 [id number] 02/16/2015 02/16/2015 [facility] Question 02/24 [id number] 02/16/2015 02/16/2015 [facility] Question 02/24 [id number] 02/16/2015 02/16/2015 [facility] Question 02/24 [id number] 02/16/2015 02/16/2015 [facility] Question 02/24 [id number] 02/16/2015 02/16/2015 [facility] Question 02/24 [id number] 02/16/2015 02/16/2015 [facility] Question 02/24 [id number] 02/16/2015 02/16/2015 [facility] Question 02/24 [id number] 02/16/2015 02/16/2015 [facility] Question 02/24 [id number] 02/16/2015 02/16/2015 [facility] Question 02/24 [id number] 02/16/2015 02/16/2015 [facility] Question 02/24 [id number] 02/16/2015 02/16/2015 [facility] Question 02/24 [id number] 02/16/2015 02/16/2015 [facility] Question LM 02/24 [id number] 02/16/2015 02/16/2015 [facility] Question LM 02/24 [id number] 02/16/2015 02/16/2015 [facility] Question LM 02/24 [id number] 02/16/2015 02/16/2015 [facility] Question 02/24 [id number] 02/16/2015 02/16/2015 [facility] refill request [id number] 03/10/2015 03/10/2015 [facility] refill request [id number] 03/10/2015 03/10/2015 [facility] refill request [id number] 03/10/2015 03/10/2015 [facility] refill request [id number] 03/10/2015 03/10/2015 [facility] refill request [id number] 03/10/2015 03/10/2015 [facility] refill request [id number] 03/10/2015 03/10/2015 [facility] refill request [id number] 03/10/2015 03/10/2015 [facility] refill request [id number] 03/10/2015 03/10/2015 [facility] refill request [id number] 03/10/2015 03/10/2015 [facility] refill request [id number] 03/10/2015 03/10/2015 [facility] refill request [id number] 03/10/2015 03/10/2015 [facility] refill request [id number] 03/10/2015 03/10/2015 [facility] refill request [id number] 03/10/2015 03/10/2015 [facility] refill request [id number] 03/10/2015 03/10/2015 [facility] refill request [id number] 03/10/2015 03/10/2015 [facility] refill request [id number] 03/10/2015 03/10/2015 [facility] refill request [id number] 03/10/2015 03/10/2015 [facility] refill request [id number] 03/10/2015 03/10/2015 [facility] refill request [id number] 03/10/2015 03/10/2015 [facility] refill request [id number] 03/10/2015 03/10/2015 [facility] refill request [id number] 03/10/2015 03/10/2015 [facility] refill request [id number] 03/10/2015 03/10/2015 [facility] refill request [id number] 03/10/2015 03/10/2015 [facility] refill request [id number] 03/10/2015 03/10/2015 [facility] refill request [id number] 03/10/2015 03/10/2015 [facility] refill request [id number] 03/10/2015 03/10/2015 [facility] refill request [id number] 03/10/2015 03/10/2015 [facility] refill request [id number] 03/10/2015 03/10/2015 [facility] refill request [id number] 03/10/2015 03/10/2015 [facility]- faxed [id number] 03/10/2015 03/10/2015 [facility]- faxed [id number] 03/10/2015 03/10/2015 [facility]- faxed [id number] 03/10/2015 03/10/2015 [facility]- faxed [id number] 03/10/2015 03/10/2015 [facility]- faxed [id number] 03/10/2015 03/10/2015 [facility]- faxed [id number] 03/10/2015 03/10/2015 [facility]- faxed [id number] 03/10/2015 03/10/2015 [facility]- faxed [id number] 03/10/2015 03/10/2015 [facility]- faxed [id number] 03/10/2015 03/10/2015 [facility]- faxed [id number] 03/10/2015 03/10/2015 [facility]- faxed [id number] 03/10/2015 03/10/2015 [facility]- faxed [id number] 03/10/2015 03/10/2015 [facility]- faxed [id number] 03/10/2015 03/10/2015 [facility]- faxed [id number] 03/10/2015 03/10/2015 [facility]- faxed [id number] 03/10/2015 03/10/2015 [facility]- faxed [id number] 03/10/2015 03/10/2015 [facility]- faxed [id number] 03/10/2015 03/10/2015 [facility]- faxed [id number] 03/10/2015 03/10/2015 [facility]- faxed [id number] 03/10/2015 03/10/2015 [facility]- faxed [id number] 03/10/2015 03/10/2015 [facility]- faxed [id number] 03/10/2015 03/10/2015 [facility]- faxed [id number] 03/10/2015 03/10/2015 [facility]- faxed [id number] 03/10/2015 03/10/2015 [facility]- faxed [id number] 03/10/2015 03/10/2015 [facility]- faxed [id number] 03/10/2015 03/10/2015 [facility]- faxed [id number] 03/10/2015 03/10/2015 [facility]- faxed [id number] 03/10/2015 03/10/2015 [facility]- faxed [id number] 03/10/2015 03/10/2015 [facility]- faxed [id number] 03/10/2015 03/10/2015 [facility] Question - done [id number] 03/14/2015 03/14/2015 [facility] Question - done [id number] 03/14/2015 03/14/2015 [facility] Question - done [id number] 03/14/2015 03/14/2015 [facility] Question - done [id number] 03/14/2015 03/14/2015 [facility] Question - done [id number] 03/14/2015 03/14/2015 [facility] Question - done [id number] 03/14/2015 03/14/2015 [facility] Question - done [id number] 03/14/2015 03/14/2015 [facility] Question - done [id number] 03/14/2015 03/14/2015 [facility] Question - done [id number] 03/14/2015 03/14/2015 [facility] Question - done [id number] 03/14/2015 03/14/2015 [facility] Question - done [id number] 03/14/2015 03/14/2015 [facility] Question - done [id number] 03/14/2015 03/14/2015 [facility] Question - done [id number] 03/14/2015 03/14/2015 [facility] Question - done [id number] 03/14/2015 03/14/2015 [facility] Question - done [id number] 03/14/2015 03/14/2015 [facility] Question - done [id number] 03/14/2015 03/14/2015 [facility] Question - done [id number] 03/14/2015 03/14/2015 [facility] Question - done [id number] 03/14/2015 03/14/2015 [facility] Question - done [id number] 03/14/2015 03/14/2015 [facility] Question - done [id number] 03/14/2015 03/14/2015 [facility] Question - done [id number] 03/14/2015 03/14/2015 [facility] Question - done [id number] 03/14/2015 03/14/2015 [facility] Question - done [id number] 03/14/2015 03/14/2015 [facility] Question - done [id number] 03/14/2015 03/14/2015 [facility] Question - done [id number] 03/14/2015 03/14/2015 [facility] Question - done [id number] 03/14/2015 03/14/2015 [facility] Question - done [id number] 03/14/2015 03/14/2015 [facility] Question - done [id number] 03/14/2015 03/14/2015 [facility] Question - done [id number] 03/14/2015 03/14/2015 [facility] Gab[facility]entin refill request [id number] 03/21/2015 03/21/2015 [facility] refill request [id number] 03/21/2015 03/21/2015 [facility] Gab[facility]entin refill request [id number] 03/21/2015 03/21/2015 [facility] Gab[facility]entin refill request [id number] 03/21/2015 03/21/2015 [facility] Gab[facility]entin refill request [id number] 03/21/2015 03/21/2015 [facility] Gab[facility]entin refill request [id number] 03/21/2015 03/21/2015 [facility] Gab[facility]entin refill request [id number] 03/21/2015 03/21/2015 [facility] Gab[facility]entin refill request [id number] 03/21/2015 03/21/2015 [facility] Gab[facility]entin refill request [id number] 03/21/2015 03/21/2015 [facility] Gab[facility]entin refill request [id number] 03/21/2015 03/21/2015 [facility] Gab[facility]entin refill request [id number] 03/21/2015 03/21/2015 [facility] Gab[facility]entin refill request [id number] 03/21/2015 03/21/2015 [facility] Gab[facility]entin refill request [id number] 03/21/2015 03/21/2015 [facility] Gab[facility]entin refill request [id number] 03/21/2015 03/21/2015 [facility] Gab[facility]entin refill request [id number] 03/21/2015 03/21/2015 [facility] Gab[facility]entin refill request [id number] 03/21/2015 03/21/2015 [facility] Gab[facility]entin refill request [id number] 03/21/2015 03/21/2015 [facility] Gab[facility]entin refill request [id number] 03/21/2015 03/21/2015 [facility] Gab[facility]entin refill request [id number] 03/21/2015 03/21/2015 [facility] Gab[facility]entin refill request [id number] 03/21/2015 03/21/2015 [facility] Gab[facility]entin refill request [id number] 03/21/2015 03/21/2015 [facility] Gab[facility]entin refill request [id number] 03/21/2015 03/21/2015 [facility] Gab[facility]entin refill request [id number] 03/21/2015 03/21/2015 [facility] Gab[facility]entin refill request [id number] 03/21/2015 03/21/2015 [facility] Gab[facility]entin refill request [id number] 03/21/2015 03/21/2015 [facility] Gab[facility]entin refill request [id number] 03/21/2015 03/21/2015 [facility]entin refill request [id number] 03/21/2015 03/21/2015 [facility] refill request [id number] 03/21/2015 03/21/2015 [facility] Gab[facility]entin refill request [id number] 03/21/2015 03/21/2015 [facility] vimpat refill [id number] 04/24/2015 04/24/2015 [facility] refill [id number] 04/24/2015 04/24/2015 [facility] refill [id number] 04/24/2015 04/24/2015 [facility] refill [id number] 04/24/2015 04/24/2015 [facility] refill [id number] 04/24/2015 04/24/2015 [facility] refill [id number] 04/24/2015 04/24/2015 [facility] refill [id number] 04/24/2015 04/24/2015 [facility] refill [id number] 04/24/2015 04/24/2015 [facility] refill [id number] 04/24/2015 04/24/2015 [facility] refill [id number] 04/24/2015 04/24/2015 [facility] refill [id number] 04/24/2015 04/24/2015 [facility] refill [id number] 04/24/2015 04/24/2015 [facility] refill [id number] 04/24/2015 04/24/2015 [facility] refill [id number] 04/24/2015 04/24/2015 [facility] refill [id number] 04/24/2015 04/24/2015 [facility] refill [id number] 04/24/2015 04/24/2015 [facility] refill [id number] 04/24/2015 04/24/2015 [facility] refill [id number] 04/24/2015 04/24/2015 [facility] refill [id number] 04/24/2015 04/24/2015 [facility] refill [id number] 04/24/2015 04/24/2015 [facility] refill [id number] 04/24/2015 04/24/2015 [facility] refill [id number] 04/24/2015 04/24/2015 [facility] refill [id number] 04/24/2015 04/24/2015 [facility] refill [id number] 04/24/2015 04/24/2015 [facility] refill [id number] 04/24/2015 04/24/2015 [facility] refill [id number] 04/24/2015 04/24/2015 [facility] refill [id number] 04/24/2015 04/24/2015 [facility] refill [id number] 04/24/2015 04/24/2015 [facility] refill [id number] 04/24/2015 04/24/2015 [facility] Needs call back from Medical Staff- no answer [id number] 05/02/2015 05/02/2015 [facility] Needs call back from Medical Staff- no answer [id number] 05/02/2015 05/02/2015 [facility] Needs call back from Medical Staff- no answer [id number] 05/02/2015 05/02/2015 [facility] Needs call back from Medical Staff- no answer [id number] 05/02/2015 05/02/2015 [facility] Needs call back from Medical Staff- no answer [id number] 05/02/2015 05/02/2015 [facility] Needs call back from Medical Staff- no answer [id number] 05/02/2015 05/02/2015 [facility] Needs call back from Medical Staff- no answer [id number] 05/02/2015 05/02/2015 [facility] Needs call back from Medical Staff- no answer [id number] 05/02/2015 05/02/2015 [facility] Needs call back from Medical Staff- no answer [id number] 05/02/2015 05/02/2015 [facility] Needs call back from Medical Staff- no answer [id number] 05/02/2015 05/02/2015 [facility] Needs call back from Medical Staff- no answer [id number] 05/02/2015 05/02/2015 [facility] Needs call back from Medical Staff- no answer [id number] 05/02/2015 05/02/2015 [facility] Needs call back from Medical Staff- no answer [id number] 05/02/2015 05/02/2015 [facility] Needs call back from Medical Staff- no answer [id number] 05/02/2015 05/02/2015 [facility] Needs call back from Medical Staff- no answer [id number] 05/02/2015 05/02/2015 [facility] Needs call back from Medical Staff- no answer [id number] 05/02/2015 05/02/2015 [facility] Needs call back from Medical Staff- no answer [id number] 05/02/2015 05/02/2015 [facility] Needs call back from Medical Staff- no answer [id number] 05/02/2015 05/02/2015 [facility] Needs call back from Medical Staff- no answer [id number] 05/02/2015 05/02/2015 [facility] Needs call back from Medical Staff- no answer [id number] 05/02/2015 05/02/2015 [facility] Needs call back from Medical Staff- no answer [id number] 05/02/2015 05/02/2015 [facility] Needs call back from Medical Staff- no answer [id number] 05/02/2015 05/02/2015 [facility] Needs call back from Medical Staff- no answer [id number] 05/02/2015 05/02/2015 [facility] Needs call back from Medical Staff- no answer [id number] 05/02/2015 05/02/2015 [facility] Needs call back from Medical Staff- no answer [id number] 05/02/2015 05/02/2015 [facility] Needs call back from Medical Staff- no answer [id number] 05/02/2015 05/02/2015 [facility] Needs call back from Medical Staff- no answer [id number] 05/02/2015 05/02/2015 [facility] Needs call back from Medical Staff- no answer [id number] 05/02/2015 05/02/2015 [facility] Needs call back from Medical Staff- no answer [id number] 05/02/2015 05/02/2015 [facility] other [id number] 06/05/2015 06/05/2015 [facility] other [id number] 06/05/2015 06/05/2015 [facility] other [id number] 06/05/2015 06/05/2015 [facility] other [id number] 06/05/2015 06/05/2015 [facility] other [id number] 06/05/2015 06/05/2015 [facility] other [id number] 06/05/2015 06/05/2015 [facility] other [id number] 06/05/2015 06/05/2015 [facility] other [id number] 06/05/2015 06/05/2015 [facility] other [id number] 06/05/2015 06/05/2015 [facility] other [id number] 06/05/2015 06/05/2015 [facility] other [id number] 06/05/2015 06/05/2015 [facility] other [id number] 06/05/2015 06/05/2015 [facility] other [id number] 06/05/2015 06/05/2015 [facility] other [id number] 06/05/2015 06/05/2015 [facility] other [id number] 06/05/2015 06/05/2015 [facility] other [id number] 06/05/2015 06/05/2015 [facility] other [id number] 06/05/2015 06/05/2015 [facility] other [id number] 06/05/2015 06/05/2015 [facility] other [id number] 06/05/2015 06/05/2015 [facility] other [id number] 06/05/2015 06/05/2015 [facility] other [id number] 06/05/2015 06/05/2015 [facility] other [id number] 06/05/2015 06/05/2015 [facility] other [id number] 06/05/2015 06/05/2015 [facility] other [id number] 06/05/2015 06/05/2015 [facility] other [id number] 06/05/2015 06/05/2015 [facility] other [id number] 06/05/2015 06/05/2015 [facility] other [id number] 06/05/2015 06/05/2015 [facility] other [id number] 06/05/2015 06/05/2015 [facility] other [id number] 06/05/2015 06/05/2015 [facility] Prescriptions - faxed [id number] 06/06/2015 06/06/2015 [facility] - faxed [id number] 06/06/2015 06/06/2015 [facility] - faxed [id number] 06/06/2015 06/06/2015 [facility] - faxed [id number] 06/06/2015 06/06/2015 [facility] - faxed [id number] 06/06/2015 06/06/2015 [facility] Prescriptions - faxed [id number] 06/06/2015 06/06/2015 [facility] - faxed [id number] 06/06/2015 06/06/2015 [facility] - faxed [id number] 06/06/2015 06/06/2015 [facility] - faxed [id number] 06/06/2015 06/06/2015 [facility] - faxed [id number] 06/06/2015 06/06/2015 [facility] - faxed [id number] 06/06/2015 06/06/2015 [facility] - faxed [id number] 06/06/2015 06/06/2015 [facility] - faxed [id number] 06/06/2015 06/06/2015 [facility] Prescriptions - faxed [id number] 06/06/2015 06/06/2015 [facility] - faxed [id number] 06/06/2015 06/06/2015 [facility] - faxed [id number] 06/06/2015 06/06/2015 [facility] Prescriptions - faxed [id number] 06/06/2015 06/06/2015 [facility] - faxed [id number] 06/06/2015 06/06/2015 [facility] Prescriptions - faxed [id number] 06/06/2015 06/06/2015 [facility] - faxed [id number] 06/06/2015 06/06/2015 [facility] Prescriptions - faxed [id number] 06/06/2015 06/06/2015 [facility] Prescriptions - faxed [id number] 06/06/2015 06/06/2015 [facility]criptions - faxed [id number] 06/06/2015 06/06/2015 [facility] Prescriptions - faxed [id number] 06/06/2015 06/06/2015 [facility] Prescriptions - faxed [id number] 06/06/2015 06/06/2015 [facility] Prescriptions - faxed [id number] 06/06/2015 06/06/2015 [facility] Pres[facility] - faxed [id number] 06/06/2015 06/06/2015 [facility] Prescriptions - faxed [id number] 06/06/2015 06/06/2015 [facility] Drug Be Request - refilled/changed [id number] 06/08/2015 06/08/2015 [facility] Request - refilled/changed [id number] 06/08/2015 06/08/2015 [facility] Request - refilled/changed [id number] 06/08/2015 06/08/2015 [facility] Request - refilled/changed [id number] 06/08/2015 06/08/2015 [facility] Request - refilled/changed [id number] 06/08/2015 06/08/2015 [facility] Request - refilled/changed [id number] 06/08/2015 06/08/2015 [facility] - refilled/changed [id number] 06/08/2015 06/08/2015 [facility] Drug [facility] Request - refilled/changed [id number] 06/08/2015 06/08/2015 [facility] - refilled/changed [id number] 06/08/2015 06/08/2015 [facility] Drug Be Request - refilled/changed [id number] 06/08/2015 06/08/2015 [facility] Drug Be Request - refilled/changed [id number] 06/08/2015 06/08/2015 [facility] Drug Be Request - refilled/changed [id number] 06/08/2015 06/08/2015 [facility] Drug Be Request - refilled/changed [id number] 06/08/2015 06/08/2015 [facility] - refilled/changed [id number] 06/08/2015 06/08/2015 [facility] Drug Be Request - refilled/changed [id number] 06/08/2015 06/08/2015 [facility] Drug Be Request - refilled/changed [id number] 06/08/2015 06/08/2015 [facility] - refilled/changed [id number] 06/08/2015 06/08/2015 [facility] Drug Be Request - refilled/changed [id number] 06/08/2015 06/08/2015 [facility] Request - refilled/changed [id number] 06/08/2015 06/08/2015 [facility] Request - refilled/changed [id number] 06/08/2015 06/08/2015 [facility] Request - refilled/changed [id number] 06/08/2015 06/08/2015 [facility] Request - refilled/changed [id number] 06/08/2015 06/08/2015 [facility] Request - refilled/changed [id number] 06/08/2015 06/08/2015 [facility] Request - refilled/changed [id number] 06/08/2015 06/08/2015 [facility] Request - refilled/changed [id number] 06/08/2015 06/08/2015 [facility] Request - refilled/changed [id number] 06/08/2015 06/08/2015 [facility] Request - refilled/changed [id number] 06/08/2015 06/08/2015 [facility] Approved/Faxed - done [id number] 06/09/2015 06/09/2015 [facility] Approved/Faxed - done [id number] 06/09/2015 06/09/2015 [facility] Approved/Faxed - done [id number] 06/09/2015 06/09/2015 [facility] Approved/Faxed - done [id number] 06/09/2015 06/09/2015 [facility] Approved/Faxed - done [id number] 06/09/2015 06/09/2015 [facility] Approved/Faxed - done [id number] 06/09/2015 06/09/2015 [facility] Approved/Faxed - done [id number] 06/09/2015 06/09/2015 [facility] Approved/Faxed - done [id number] 06/09/2015 06/09/2015 [facility] Approved/Faxed - done [id number] 06/09/2015 06/09/2015 [facility] Approved/Faxed - done [id number] 06/09/2015 06/09/2015 [facility] Approved/Faxed - done [id number] 06/09/2015 06/09/2015 [facility] Approved/Faxed - done [id number] 06/09/2015 06/09/2015 [facility] Approved/Faxed - done [id number] 06/09/2015 06/09/2015 [facility] Approved/Faxed - done [id number] 06/09/2015 06/09/2015 [facility] Approved/Faxed - done [id number] 06/09/2015 06/09/2015 [facility] Approved/Faxed - done [id number] 06/09/2015 06/09/2015 [facility] Approved/Faxed - done [id number] 06/09/2015 06/09/2015 [facility] Approved/Faxed - done [id number] 06/09/2015 06/09/2015 [facility] Approved/Faxed - done [id number] 06/09/2015 06/09/2015 [facility] Approved/Faxed - done [id number] 06/09/2015 06/09/2015 [facility] Approved/Faxed - done [id number] 06/09/2015 06/09/2015 [facility] Approved/Faxed - done [id number] 06/09/2015 06/09/2015 [facility] Approved/Faxed - done [id number] 06/09/2015 06/09/2015 [facility] Approved/Faxed - done [id number] 06/09/2015 06/09/2015 [facility] Approved/Faxed - done [id number] 06/09/2015 06/09/2015 [facility] Approved/Faxed - done [id number] 06/09/2015 06/09/2015 [facility] Tradroxannanta [facility] Approved/Faxed - notified [id number] 06/23/2015 06/23/2015 [facility] Nickienta [facility] Approved/Faxed - notified [id number] 06/23/2015 06/23/2015 [facility] Tradroxannanta JERE Approved/Faxed - notified [id number] 06/23/2015 06/23/2015 [facility] Tradroxannanta JERE Approved/Faxed - notified [id number] 06/23/2015 06/23/2015 [facility] Tradroxannanta JERE Approved/Faxed - notified [id number] 06/23/2015 06/23/2015 [facility] Tradroxannanta JERE Approved/Faxed - notified [id number] 06/23/2015 06/23/2015 [facility] Tradroxannanta [facility]ERE Approved/Faxed - notified [id number] 06/23/2015 06/23/2015 [facility] Tradroxannanta [facility]ERE Approved/Faxed - notified [id number] 06/23/2015 06/23/2015 [facility] Tradroxannanta [facility]ERE Approved/Faxed - notified [id number] 06/23/2015 06/23/2015 [facility] Tradroxannanta JERE Approved/Faxed - notified [id number] 06/23/2015 06/23/2015 [facility] Nickienta [facility] Approved/Faxed - notified [id number] 06/23/2015 06/23/2015 [facility] Slimea [facility] Approved/Faxed - notified [id number] 06/23/2015 06/23/2015 [facility] Slimea [facility] Approved/Faxed - notified [id number] 06/23/2015 06/23/2015 [facility] Tradmauria [facility] Approved/Faxed - notified [id number] 06/23/2015 06/23/2015 [facility] Tradroxannanta JERE Approved/Faxed - notified [id number] 06/23/2015 06/23/2015 [facility] Nickienta [facility] Approved/Faxed - notified [id number] 06/23/2015 06/23/2015 [facility] Tradroxannanta [facility]ERE Approved/Faxed - notified [id number] 06/23/2015 06/23/2015 [facility] Slimea [facility] Approved/Faxed - notified [id number] 06/23/2015 06/23/2015 [facility] Tradkristine OQUENDO Approved/Faxed - notified [id number] 06/23/2015 06/23/2015 [facility] Woody OQUENDO Approved/Faxed - notified [id number] 06/23/2015 06/23/2015 [facility] Woody OQUENDO Approved/Faxed - notified [id number] 06/23/2015 06/23/2015 [facility] Woody OQUENDO Approved/Faxed - notified [id number] 06/23/2015 06/23/2015 [facility] Woody OQUENDO Approved/Faxed - notified [id number] 06/23/2015 06/23/2015 [facility] Woody OQUENDO Approved/Faxed - notified [id number] 06/23/2015 06/23/2015 [facility] Tradmauria [facility] Approved/Faxed - notified [id number] 06/23/2015 06/23/2015 [facility] NO BM & sugars in 400's [id number] 06/26/2015 06/26/2015 [facility] NO BM & sugars in 400's [id number] 06/26/2015 06/26/2015 [facility] NO BM & sugars in 400's [id number] 06/26/2015 06/26/2015 [facility] NO BM & sugars in 400's [id number] 06/26/2015 06/26/2015 [facility] NO BM & sugars in 400's [id number] 06/26/2015 06/26/2015 [facility] NO BM & sugars in 400's [id number] 06/26/2015 06/26/2015 [facility] NO BM & sugars in 400's [id number] 06/26/2015 06/26/2015 [facility] NO BM & sugars in 400's [id number] 06/26/2015 06/26/2015 [facility] NO BM & sugars in 400's [id number] 06/26/2015 06/26/2015 [facility] NO BM & sugars in 400's [id number] 06/26/2015 06/26/2015 [facility] NO BM & sugars in 400's [id number] 06/26/2015 06/26/2015 [facility] NO BM & sugars in 400's [id number] 06/26/2015 06/26/2015 [facility] NO BM & sugars in 400's [id number] 06/26/2015 06/26/2015 [facility] NO BM & sugars in 400's [id number] 06/26/2015 06/26/2015 [facility] NO BM & sugars in 400's [id number] 06/26/2015 06/26/2015 [facility] NO BM & sugars in 400's [id number] 06/26/2015 06/26/2015 [facility] NO BM & sugars in 400's [id number] 06/26/2015 06/26/2015 [facility] NO BM & sugars in 400's [id number] 06/26/2015 06/26/2015 [facility] NO BM & sugars in 400's [id number] 06/26/2015 06/26/2015 [facility] NO BM & sugars in 400's [id number] 06/26/2015 06/26/2015 [facility] NO BM & sugars in 400's [id number] 06/26/2015 06/26/2015 [facility] NO BM & sugars in 400's [id number] 06/26/2015 06/26/2015 [facility] NO BM & sugars in 400's [id number] 06/26/2015 06/26/2015 [facility] NO BM & sugars in 400's [id number] 06/26/2015 06/26/2015 [facility] Prescribe medicince for UTI/ Symptoms W/diarrhea & weight gain- done [id number] 07/05/2015 07/05/2015 [facility] Prescribe medicince for UTI/ Symptoms W/diarrhea & weight gain- done [id number] 07/05/2015 07/05/2015 [facility] Prescribe medicince for UTI/ Symptoms W/diarrhea & weight gain- done [id number] 07/05/2015 07/05/2015 [facility] Prescribe medicince for UTI/ Symptoms W/diarrhea & weight gain- done [id number] 07/05/2015 07/05/2015 [facility] Prescribe medicince for UTI/ Symptoms W/diarrhea & weight gain- done [id number] 07/05/2015 07/05/2015 [facility] Prescribe medicince for UTI/ Symptoms W/diarrhea & weight gain- done [id number] 07/05/2015 07/05/2015 [facility] Prescribe medicince for UTI/ Symptoms W/diarrhea & weight gain- done [id number] 07/05/2015 07/05/2015 [facility] Prescribe medicince for UTI/ Symptoms W/diarrhea & weight gain- done [id number] 07/05/2015 07/05/2015 [facility] Prescribe medicince for UTI/ Symptoms W/diarrhea & weight gain- done [id number] 07/05/2015 07/05/2015 [facility] Prescribe medicince for UTI/ Symptoms W/diarrhea & weight gain- done [id number] 07/05/2015 07/05/2015 [facility] Prescribe medicince for UTI/ Symptoms W/diarrhea & weight gain- done [id number] 07/05/2015 07/05/2015 [facility] Prescribe medicince for UTI/ Symptoms W/diarrhea & weight gain- done [id number] 07/05/2015 07/05/2015 [facility] Prescribe medicince for UTI/ Symptoms W/diarrhea & weight gain- done [id number] 07/05/2015 07/05/2015 [facility]cribe medicince for UTI/ Symptoms W/diarrhea & weight gain- done [id number] 07/05/2015 07/05/2015 [facility]cribe medicince for UTI/ Symptoms W/diarrhea & weight gain- done [id number] 07/05/2015 07/05/2015 [facility]cribe medicince for UTI/ Symptoms W/diarrhea & weight gain- done [id number] 07/05/2015 07/05/2015 [facility]cribe medicince for UTI/ Symptoms W/diarrhea & weight gain- done [id number] 07/05/2015 07/05/2015 [facility] Prescribe medicince for UTI/ Symptoms W/diarrhea & weight gain- done [id number] 07/05/2015 07/05/2015 [facility] Prescribe medicince for UTI/ Symptoms W/diarrhea & weight gain- done [id number] 07/05/2015 07/05/2015 [facility] Prescribe medicince for UTI/ Symptoms W/diarrhea & weight gain- done [id number] 07/05/2015 07/05/2015 [facility] Prescribe medicince for UTI/ Symptoms W/diarrhea & weight gain- done [id number] 07/05/2015 07/05/2015 [facility] Prescribe medicince for UTI/ Symptoms W/diarrhea & weight gain- done [id number] 07/05/2015 07/05/2015 [facility] Prescribe medicince for UTI/ Symptoms W/diarrhea & weight gain- done [id number] 07/05/2015 07/05/2015 [facility] Clon[facility]epam Refill Request - refilled/faxed [id number] 08/18/2015 08/18/2015 [facility]on[facility]epam Refill Request - refilled/faxed [id number] 08/18/2015 08/18/2015 [facility]on[facility]am Refill Request - refilled/faxed [id number] 08/18/2015 08/18/2015 [facility]on[facility]epam Refill Request - refilled/faxed [id number] 08/18/2015 08/18/2015 [facility]epam Refill Request - refilled/faxed [id number] 08/18/2015 08/18/2015 [facility]am Refill Request - refilled/faxed [id number] 08/18/2015 08/18/2015 [facility]epam Refill Request - refilled/faxed [id number] 08/18/2015 08/18/2015 [facility]am Refill Request - refilled/faxed [id number] 08/18/2015 08/18/2015 [facility]am Refill Request - refilled/faxed [id number] 08/18/2015 08/18/2015 [facility]am Refill Request - refilled/faxed [id number] 08/18/2015 08/18/2015 [facility]am Refill Request - refilled/faxed [id number] 08/18/2015 08/18/2015 [facility]am Refill Request - refilled/faxed [id number] 08/18/2015 08/18/2015 [facility] Refill Request - refilled/faxed [id number] 08/18/2015 08/18/2015 [facility] Clon[facility]am Refill Request - refilled/faxed [id number] 08/18/2015 08/18/2015 [facility] Cl[facility]am Refill Request - refilled/faxed [id number] 08/18/2015 08/18/2015 [facility] Clon[facility]am Refill Request - refilled/faxed [id number] 08/18/2015 08/18/2015 [facility] Cl[facility]am Refill Request - refilled/faxed [id number] 08/18/2015 08/18/2015 [facility]am Refill Request - refilled/faxed [id number] 08/18/2015 08/18/2015 [facility]am Refill Request - refilled/faxed [id number] 08/18/2015 08/18/2015 [facility]am Refill Request - refilled/faxed [id number] 08/18/2015 08/18/2015 [facility]am Refill Request - refilled/faxed [id number] 08/18/2015 08/18/2015 [facility] Sugars up 400's/Legs Swelling (#) [id number] 08/18/2015 08/18/2015 [facility] Sugars up 400's/Legs Swelling (#) [id number] 08/18/2015 08/18/2015 [facility] Sugars up 400's/Legs Swelling (#) [id number] 08/18/2015 08/18/2015 [facility] Sugars up 400's/Legs Swelling (#) [id number] 08/18/2015 08/18/2015 [facility] Sugars up 400's/Legs Swelling (#) [id number] 08/18/2015 08/18/2015 [facility] Sugars up 400's/Legs Swelling (#) [id number] 08/18/2015 08/18/2015 [facility] Sugars up 400's/Legs Swelling (#) [id number] 08/18/2015 08/18/2015 [facility] Sugars up 400's/Legs Swelling (#) [id number] 08/18/2015 08/18/2015 [facility] Sugars up 400's/Legs Swelling (#) [id number] 08/18/2015 08/18/2015 [facility] Sugars up 400's/Legs Swelling (#) [id number] 08/18/2015 08/18/2015 [facility] Sugars up 400's/Legs Swelling (#) [id number] 08/18/2015 08/18/2015 [facility] Sugars up 400's/Legs Swelling (#) [id number] 08/18/2015 08/18/2015 [facility] Sugars up 400's/Legs Swelling (#) [id number] 08/18/2015 08/18/2015 [facility] Sugars up 400's/Legs Swelling (#) [id number] 08/18/2015 08/18/2015 [facility] Sugars up 400's/Legs Swelling (#) [id number] 08/18/2015 08/18/2015 [facility] Sugars up 400's/Legs Swelling (#) [id number] 08/18/2015 08/18/2015 [facility] Sugars up 400's/Legs Swelling (#) [id number] 08/18/2015 08/18/2015 [facility] Sugars up 400's/Legs Swelling (#) [id number] 08/18/2015 08/18/2015 [facility] Sugars up 400's/Legs Swelling (#) [id number] 08/18/2015 08/18/2015 [facility] Sugars up 400's/Legs Swelling (#) [id number] 08/18/2015 08/18/2015 [facility] Sugars up 400's/Legs Swelling (#) [id number] 08/18/2015 08/18/2015 [facility] Sugars up 400's/Legs Swelling (#) [id number] 08/18/2015 08/18/2015 [facility] Body Swollen - called [id number] 08/24/2015 08/24/2015 [facility] Body Swollen - called [id number] 08/24/2015 08/24/2015 [facility] Body Swollen - called [id number] 08/24/2015 08/24/2015 [facility] Body Swollen - called [id number] 08/24/2015 08/24/2015 [facility] Body Swollen - called [id number] 08/24/2015 08/24/2015 [facility] Body Swollen - called [id number] 08/24/2015 08/24/2015 [facility] Body Swollen - called [id number] 08/24/2015 08/24/2015 [facility] Body Swollen - called [id number] 08/24/2015 08/24/2015 [facility] Body Swollen - called [id number] 08/24/2015 08/24/2015 [facility] Body Swollen - called [id number] 08/24/2015 08/24/2015 [facility] Body Swollen - called [id number] 08/24/2015 08/24/2015 [facility] Body Swollen - called [id number] 08/24/2015 08/24/2015 [facility] Body Swollen - called [id number] 08/24/2015 08/24/2015 [facility] Body Swollen - called [id number] 08/24/2015 08/24/2015 [facility] Body Swollen - called [id number] 08/24/2015 08/24/2015 [facility] Body Swollen - called [id number] 08/24/2015 08/24/2015 [facility] Body Swollen - called [id number] 08/24/2015 08/24/2015 [facility] Body Swollen - called [id number] 08/24/2015 08/24/2015 [facility] Body Swollen - called [id number] 08/24/2015 08/24/2015 [facility] Body Swollen - called [id number] 08/24/2015 08/24/2015 [facility] PA - fax addit. info [id number] 08/25/2015 08/25/2015 [facility] [employer] PA - fax addit. info [id number] 08/25/2015 08/25/2015 [facility] [employer] PA - fax addit. info [id number] 08/25/2015 08/25/2015 [facility] [employer] PA - fax addit. info [id number] 08/25/2015 08/25/2015 [facility] [employer] PA - fax addit. info [id number] 08/25/2015 08/25/2015 [facility] [employer] PA - fax addit. info [id number] 08/25/2015 08/25/2015 [facility] [employer] PA - fax addit. info [id number] 08/25/2015 08/25/2015 [facility] [employer] PA - fax addit. info [id number] 08/25/2015 08/25/2015 [facility] [employer] PA - fax addit. info [id number] 08/25/2015 08/25/2015 [facility] [employer] PA - fax addit. info [id number] 08/25/2015 08/25/2015 [facility] [employer] PA - fax addit. info [id number] 08/25/2015 08/25/2015 [facility] [employer] PA - fax addit. info [id number] 08/25/2015 08/25/2015 [facility] [employer] PA - fax addit. info [id number] 08/25/2015 08/25/2015 [facility] [employer] PA - fax addit. info [id number] 08/25/2015 08/25/2015 [facility] [employer] PA - fax addit. info [id number] 08/25/2015 08/25/2015 [facility] [employer] PA - fax addit. info [id number] 08/25/2015 08/25/2015 [facility] [employer] PA - fax addit. info [id number] 08/25/2015 08/25/2015 [facility] [employer] PA - fax addit. info [id number] 08/25/2015 08/25/2015 [facility] [employer] PA - fax addit. info [id number] 08/25/2015 08/25/2015 [facility] [id number] 09/01/2015 09/01/2015 [facility] [id number] 09/01/2015 09/01/2015 [facility] [id number] 09/01/2015 09/01/2015 [facility] [id number] 09/01/2015 09/01/2015 [facility] [id number] 09/01/2015 09/01/2015 [facility] [id number] 09/01/2015 09/01/2015 [facility] [id number] 09/01/2015 09/01/2015 [facility] [id number] 09/01/2015 09/01/2015 [facility] [id number] 09/01/2015 09/01/2015 [facility] [id number] 09/01/2015 09/01/2015 [facility] [id number] 09/01/2015 09/01/2015 [facility] [id number] 09/01/2015 09/01/2015 [facility] [id number] 09/01/2015 09/01/2015 [facility] [id number] 09/01/2015 09/01/2015 [facility] [id number] 09/01/2015 09/01/2015 [facility] [id number] 09/01/2015 09/01/2015 [facility] [id number] 09/01/2015 09/01/2015 [facility] [id number] 09/01/2015 09/01/2015 [facility] PA Status - not needed/notified [id number] 09/08/2015 09/08/2015 [facility] PA Status - not needed/notified [id number] 09/08/2015 09/08/2015 [facility] PA Status - not needed/notified [id number] 09/08/2015 09/08/2015 [facility] PA Status - not needed/notified [id number] 09/08/2015 09/08/2015 [facility] PA Status - not needed/notified [id number] 09/08/2015 09/08/2015 [facility] PA Status - not needed/notified [id number] 09/08/2015 09/08/2015 [facility] PA Status - not needed/notified [id number] 09/08/2015 09/08/2015 [facility] PA Status - not needed/notified [id number] 09/08/2015 09/08/2015 [facility] PA Status - not needed/notified [id number] 09/08/2015 09/08/2015 [facility] PA Status - not needed/notified [id number] 09/08/2015 09/08/2015 [facility] PA Status - not needed/notified [id number] 09/08/2015 09/08/2015 [facility] PA Status - not needed/notified [id number] 09/08/2015 09/08/2015 [facility] PA Status - not needed/notified [id number] 09/08/2015 09/08/2015 [facility] PA Status - not needed/notified [id number] 09/08/2015 09/08/2015 [facility] PA Status - not needed/notified [id number] 09/08/2015 09/08/2015 [facility] PA Status - not needed/notified [id number] 09/08/2015 09/08/2015 [facility] PA Status - not needed/notified [id number] 09/08/2015 09/08/2015 [facility] rx for pain/ lower extremeties - refilled/faxed/notified [id number] 09/29/2015 09/29/2015 [facility] rx for pain/ lower extremeties - refilled/faxed/notified [id number] 09/29/2015 09/29/2015 [facility] rx for pain/ lower extremeties - refilled/faxed/notified [id number] 09/29/2015 09/29/2015 [facility] rx for pain/ lower extremeties - refilled/faxed/notified [id number] 09/29/2015 09/29/2015 [facility] rx for pain/ lower extremeties - refilled/faxed/notified [id number] 09/29/2015 09/29/2015 [facility] rx for pain/ lower extremeties - refilled/faxed/notified [id number] 09/29/2015 09/29/2015 [facility] rx for pain/ lower extremeties - refilled/faxed/notified [id number] 09/29/2015 09/29/2015 [facility] rx for pain/ lower extremeties - refilled/faxed/notified [id number] 09/29/2015 09/29/2015 [facility] rx for pain/ lower extremeties - refilled/faxed/notified [id number] 09/29/2015 09/29/2015 [facility] rx for pain/ lower extremeties - refilled/faxed/notified [id number] 09/29/2015 09/29/2015 [facility] rx for pain/ lower extremeties - refilled/faxed/notified [id number] 09/29/2015 09/29/2015 [facility] rx for pain/ lower extremeties - refilled/faxed/notified [id number] 09/29/2015 09/29/2015 [facility] rx for pain/ lower extremeties - refilled/faxed/notified [id number] 09/29/2015 09/29/2015 [facility] rx for pain/ lower extremeties - refilled/faxed/notified [id number] 09/29/2015 09/29/2015 [facility] rx for pain/ lower extremeties - refilled/faxed/notified [id number] 09/29/2015 09/29/2015 [facility] rx for pain/ lower extremeties - refilled/faxed/notified [id number] 09/29/2015 09/29/2015 [facility] Meclizine Refill Request - refilled [id number] 10/18/2015 10/18/2015 [facility] Meclizine Refill Request - refilled [id number] 10/18/2015 10/18/2015 [facility] Meclizine Refill Request - refilled [id number] 10/18/2015 10/18/2015 [facility] Meclizine Refill Request - refilled [id number] 10/18/2015 10/18/2015 [facility] Meclizine Refill Request - refilled [id number] 10/18/2015 10/18/2015 [facility] Meclizine Refill Request - refilled [id number] 10/18/2015 10/18/2015 [facility] Meclizine Refill Request - refilled [id number] 10/18/2015 10/18/2015 [facility] Meclizine Refill Request - refilled [id number] 10/18/2015 10/18/2015 [facility] Meclizine Refill Request - refilled [id number] 10/18/2015 10/18/2015 [facility] Meclizine Refill Request - refilled [id number] 10/18/2015 10/18/2015 [facility] Meclizine Refill Request - refilled [id number] 10/18/2015 10/18/2015 [facility] Meclizine Refill Request - refilled [id number] 10/18/2015 10/18/2015 [facility] Meclizine Refill Request - refilled [id number] 10/18/2015 10/18/2015 [facility] Meclizine Refill Request - refilled [id number] 10/18/2015 10/18/2015 [facility] Meclizine Refill Request - refilled [id number] 10/18/2015 10/18/2015 [facility]Touch PA Approved - faxed/notified [id number] 10/26/2015 10/26/2015 [facility] [employer] PA Approved - faxed/notified [id number] 10/26/2015 10/26/2015 [facility] [employer] PA Approved - faxed/notified [id number] 10/26/2015 10/26/2015 [facility] [employer] PA Approved - faxed/notified [id number] 10/26/2015 10/26/2015 [facility] [employer] PA Approved - faxed/notified [id number] 10/26/2015 10/26/2015 [facility] [employer] PA Approved - faxed/notified [id number] 10/26/2015 10/26/2015 [facility] [employer] PA Approved - faxed/notified [id number] 10/26/2015 10/26/2015 [facility] [employer] PA Approved - faxed/notified [id number] 10/26/2015 10/26/2015 [facility] [employer] PA Approved - faxed/notified [id number] 10/26/2015 10/26/2015 [facility] [employer] PA Approved - faxed/notified [id number] 10/26/2015 10/26/2015 [facility] [employer] PA Approved - faxed/notified [id number] 10/26/2015 10/26/2015 [facility] [employer] PA Approved - faxed/notified [id number] 10/26/2015 10/26/2015 [facility] [employer] PA Approved - faxed/notified [id number] 10/26/2015 10/26/2015 [facility] [employer] PA Approved - faxed/notified [id number] 10/26/2015 10/26/2015 [facility] Tramodol Refill Request - refilled [id number] 11/07/2015 11/07/2015 [facility] Tramodol Refill Request - refilled [id number] 11/07/2015 11/07/2015 [facility] Tramodol Refill Request - refilled [id number] 11/07/2015 11/07/2015 [facility] Tramodol Refill Request - refilled [id number] 11/07/2015 11/07/2015 [facility] Tramodol Refill Request - refilled [id number] 11/07/2015 11/07/2015 [facility] Tramodol Refill Request - refilled [id number] 11/07/2015 11/07/2015 [facility] Tramodol Refill Request - refilled [id number] 11/07/2015 11/07/2015 [facility] Tramodol Refill Request - refilled [id number] 11/07/2015 11/07/2015 [facility] Tramodol Refill Request - refilled [id number] 11/07/2015 11/07/2015 [facility] Tramodol Refill Request - refilled [id number] 11/07/2015 11/07/2015 [facility] Tramodol Refill Request - refilled [id number] 11/07/2015 11/07/2015 [facility] Tramodol Refill Request - refilled [id number] 11/07/2015 11/07/2015 [facility] Tramodol Refill Request - refilled [id number] 11/07/2015 11/07/2015 [facility] Clonazepam Refill Request - refilled/faxed [id number] 12/03/2015 12/03/2015 [facility] Clonazepam Refill Request - refilled/faxed [id number] 12/03/2015 12/03/2015 [facility] Clonazepam Refill Request - refilled/faxed [id number] 12/03/2015 12/03/2015 [facility] Clonazepam Refill Request - refilled/faxed [id number] 12/03/2015 12/03/2015 [facility] Clonazepam Refill Request - refilled/faxed [id number] 12/03/2015 12/03/2015 [facility] Clonazepam Refill Request - refilled/faxed [id number] 12/03/2015 12/03/2015 [facility] Clonazepam Refill Request - refilled/faxed [id number] 12/03/2015 12/03/2015 [facility] Clonazepam Refill Request - refilled/faxed [id number] 12/03/2015 12/03/2015 [facility] Clonazepam Refill Request - refilled/faxed [id number] 12/03/2015 12/03/2015 [facility] Clonazepam Refill Request - refilled/faxed [id number] 12/03/2015 12/03/2015 [facility] Clonazepam Refill Request - refilled/faxed [id number] 12/03/2015 12/03/2015 [facility] Clonazepam Refill Request - refilled/faxed [id number] 12/03/2015 12/03/2015 [facility] Humalog KwikPen Refill Request -refilled [id number] 12/11/2015 12/11/2015 [facility] Humalog KwikPen Refill Request -refilled [id number] 12/11/2015 12/11/2015 [facility] Humalog KwikPen Refill Request -refilled [id number] 12/11/2015 12/11/2015 [facility] Humalog KwikPen Refill Request -refilled [id number] 12/11/2015 12/11/2015 [facility] Humalog KwikPen Refill Request -refilled [id number] 12/11/2015 12/11/2015 [facility] Humalog KwikPen Refill Request -refilled [id number] 12/11/2015 12/11/2015 [facility] Humalog KwikPen Refill Request -refilled [id number] 12/11/2015 12/11/2015 [facility] Humalog KwikPen Refill Request -refilled [id number] 12/11/2015 12/11/2015 [facility] Humalog KwikPen Refill Request -refilled [id number] 12/11/2015 12/11/2015 [facility] Humalog KwikPen Refill Request -refilled [id number] 12/11/2015 12/11/2015 [facility] Humalog KwikPen Refill Request -refilled [id number] 12/11/2015 12/11/2015 [facility] Medication Refill Request - refilled [id number] 12/15/2015 12/15/2015 [facility] Medication Refill Request - refilled [id number] 12/15/2015 12/15/2015 [facility] Medication Refill Request - refilled [id number] 12/15/2015 12/15/2015 [facility] Medication Refill Request - refilled [id number] 12/15/2015 12/15/2015 [facility] Medication Refill Request - refilled [id number] 12/15/2015 12/15/2015 [facility] Medication Refill Request - refilled [id number] 12/15/2015 12/15/2015 [facility] Med[facility] Refill Request - refilled [id number] 12/15/2015 12/15/2015 [facility] Med[facility] Refill Request - refilled [id number] 12/15/2015 12/15/2015 [facility] Med[facility] Refill Request - refilled [id number] 12/15/2015 12/15/2015 [facility] Med[facility] Refill Request - refilled [id number] 12/15/2015 12/15/2015 [facility] BS Reading [id number] 12/20/2015 12/20/2015 [facility] BS Reading [id number] 12/20/2015 12/20/2015 [facility] BS Reading [id number] 12/20/2015 12/20/2015 [facility] BS Reading [id number] 12/20/2015 12/20/2015 [facility] BS Reading [id number] 12/20/2015 12/20/2015 [facility] BS Reading [id number] 12/20/2015 12/20/2015 [facility] BS Reading [id number] 12/20/2015 12/20/2015 [facility] BS Reading [id number] 12/20/2015 12/20/2015 [facility] BS Reading [id number] 12/20/2015 12/20/2015 [facility] Tramadol Refill Request/Appt Scheduled - made/refilled/faxed [id number] 01/23/2016 01/23/2016 [facility] Tramadol Refill Request/Appt Scheduled - made/refilled/faxed [id number] 01/23/2016 01/23/2016 [facility] Tramadol Refill Request/Appt Scheduled - made/refilled/faxed [id number] 01/23/2016 01/23/2016 [facility] Tramadol Refill Request/Appt Scheduled - made/refilled/faxed [id number] 01/23/2016 01/23/2016 [facility] Tramadol Refill Request/Appt Scheduled - made/refilled/faxed [id number] 01/23/2016 01/23/2016 [facility] Tramadol Refill Request/Appt Scheduled - made/refilled/faxed [id number] 01/23/2016 01/23/2016 [facility] Tramadol Refill Request/Appt Scheduled - made/refilled/faxed [id number] 01/23/2016 01/23/2016 [facility] Tramadol Refill Request/Appt Scheduled - made/refilled/faxed [id number] 01/23/2016 01/23/2016 [facility] Clonzepam Refill Request [id number] 02/01/2016 02/01/2016 [facility] Clonzepam Refill Request [id number] 02/01/2016 02/01/2016 [facility] Clonzepam Refill Request [id number] 02/01/2016 02/01/2016 [facility] Clonzepam Refill Request [id number] 02/01/2016 02/01/2016 [facility] Clonzepam Refill Request [id number] 02/01/2016 02/01/2016 [facility] Clonzepam Refill Request [id number] 02/01/2016 02/01/2016 [facility] Clonzepam Refill Request [id number] 02/01/2016 02/01/2016 [facility] Follow Up [id number] 02/07/2016 02/07/2016 [facility] Follow Up [id number] 02/07/2016 02/07/2016 [facility] Follow Up [id number] 02/07/2016 02/07/2016 [facility] Follow Up [id number] 02/07/2016 02/07/2016 [facility] Follow Up [id number] 02/07/2016 02/07/2016 [facility] Follow Up [id number] 02/07/2016 02/07/2016 [facility] Medication Question - LM 1014, LM 1020, LM 02/20 [id number] 02/08/2016 02/08/2016 [facility] Medication Question - LM 1014, LM 10/20, LM 02/20 [id number] 02/08/2016 02/08/2016 [facility] Medication Question - LM 10/14, LM 10/20, LM 02/20 [id number] 02/08/2016 02/08/2016 [facility] Medication Question - LM 10/14, LM 10/20, LM 1026 [id number] 02/08/2016 02/08/2016 [facility] Medication Question - LM 10/14, LM 10/20, LM 02/20 [id number] 02/08/2016 02/08/2016 [facility] tramadol refill- done [id number] 03/20/2016 03/20/2016 [facility] tramadol refill- done [id number] 03/20/2016 03/20/2016 [facility] tramadol refill- done [id number] 03/20/2016 03/20/2016 [facility] tramadol refill- done [id number] 03/20/2016 03/20/2016 [facility] Outpatient [id number] MYNOR RYANN 04/10/2016 [facility] Fanapt Refill Request - refilled [id number] 04/23/2016 04/23/2016 [facility] Fanapt Refill Request - refilled [id number] 04/23/2016 04/23/2016 [facility] Fanapt Refill Request - refilled [id number] 04/23/2016 04/23/2016 [facility] Outpatient [id number] MYNOR MORRISSEYH 04/30/2016 [facility] Midodrine/Fanapt/Diclofenac/Clonazepam Refill Request - refilled [id number] 04/30/2016 04/30/2016 [facility] Midodrine/Fanapt/Diclofenac/Clonazepam Refill Request - refilled [id number] 04/30/2016 04/30/2016 [facility] Vimpat Refill Request - refilled/faxed [id number] 05/03/2016 05/03/2016 [facility] [place] [facility] [id number] Lloyd Sanchez 09/11/2016 09/12/2016 [facility] Outpatient [id number] Kevin Wilkins 10/18/2016 10/18/2016 [facility] Preadmit [id number] SEIZURES, ICD-9# 345.41, CPT# 24130; 81456; 35716 ROLAN [place] [facility] Outpatient [id number] 345.41 DANETTE PERRY Cancel [facility] Outpatient [id number] V76.12 - SCREEN MAMMOGRA V86.0 - ESTROGEN [employer]NICIAN RITCHIE ZUNIGA Cancel [facility] Procedures Procedure Code Date Perfomer Comments Source Emergency department visit for the evaluation and management of a patient, which requires these 3 fabian components within the constraints imposed by the urgency of the patient's clinical condition and/or mental status: A comprehensive history; A comprehensi 96602 01/29/2013 [facility] Intravenous infusion, hydration; each additional hour (List separately in addition to code for primary procedure) [id number] 01/29/2013 [facility] Therapeutic, prophylactic, or diagnostic injection (specify substance or drug); intravenous push, single or initial substance/drug 84446 01/29/2013 [facility] Gallbladder operation [facility] Lobectomy of brain [id number] [facility] Tonsils and adenoids postoperative education [id number] [facility] Gallbladder operation [facility] Lobectomy of brain [id number] [facility] Tonsils and adenoids postoperative education [id number] [facility]
--- OUTSIDE RECORDS SUMMARY | 2018-07-18 08:41 | XMS REPORT | CCD ---
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 Name Role Phone Mitul Tarango CP Allergies, Adverse Reactions, Alerts Substance Reaction Status morphine Active NKDA Canceled Problem List Condition Effective Dates Status Pain Active Seizure precautions Active Medications Medication Instructions Start Date End Date Status Zofran 4 mg, 2 mL, Route: IVP, Drug form: 06/05/2011 06/07/2011 Discontinued INJ, Q8H, PRN Nausea, Start date: 06/05/11 15:17:00, Duration: 30 day, Stop date: 07/05/11 15:16:00 Ultram 50 mg oral 50 mg, 1 tab, Route: PO, Drug form: 05/29/2011 05/29/2011 Completed tablet TAB, ONCE, Priority: STAT, Start date: 05/29/11 3:58:00, Stop date: 05/29/11 3:58:00 Skelaxin 800 mg, 1 tab, Route: PO, Drug 05/27/2011 05/29/2011 Discontinued form: TAB, TID, PRN See Nurse's Notes, Start date: 05/27/11 11:32:00, Duration: 30 day, Stop date: 06/26/11 11:31:00 LORAzepam 2 mg, Route: IVP, ONCE, Priority: 05/26/2011 05/26/2011 Completed STAT, Start date: 05/26/11 8:00:00, Stop date: 05/26/11 8:00:00 Demerol HCl 12.5 mg, Route: IVP, ONCE, Start 2011 2011 Completed date: 05/28/11 14:37:00, Stop date: 05/28/11 14:37:00 vancomycin 1 gm, Route: IVPB, Drug form: INJ, 06/04/2011 06/04/2011 Completed ONCE, Start date: 06/04/11 10:25:00, Stop date: 06/04/11 10:25:00 naloxone 0.4 mg, Route: IVP, ONCE, Start 2011 2011 Completed date: 05/28/11 16:37:00, Stop date: 05/28/11 16:37:00 cefazolin 2 gm, Route: IVPB, ONCE, Start 2011 2011 Completed date: 05/28/11 8:44:00, Duration: 1 doses or times, Stop date: 05/28/11 8:44:00 sodium phosphate 36 mmol, 12 mL, Route: IV, ONCE, 06/05/2011 06/05/2011 Completed Start date: 06/05/11 7:00:00, Stop date: 06/05/11 7:00:00 Sodium Chloride 0.9% 1,000 mL, Rate: 100 ml/hr, Infuse 05/27/2011 05/29/2011 Discontinued IV 1,000 mL over: 10 hr, Route: IV, Total Volume: 1,000, Start date: 05/27/11 15:00:00, Duration: 30 day, Stop date: 06/26/11 14:59:00 Ativan 2 mg, 1 mL, Route: IV, Drug form: 05/29/2011 05/29/2011 Ordered INJ, ONCE, Start date: 05/29/11 23:49:00, Stop date: 05/29/11 23:49:00 tramadol 50 mg oral 50 mg, 1 tab, Route: PO, Drug form: 06/01/2011 06/01/2011 Completed tablet TAB, ONCALL, Start date: 06/01/11 0:00:00, Duration: 1 doses or times, Stop date: 06/01/11 12:00:00 calcium gluconate 3,000 mg, 30 mL, Route: IVPB, ONCE, 05/29/2011 05/29/2011 Completed Start date: 05/29/11 7:30:00, Stop date: 05/29/11 7:30:00 Dilaudid 0.2 mg, 0.1 mL, Route: IV, Drug 05/30/2011 06/05/2011 Discontinued form: INJ, Q2H, PRN Pain, Priority: STAT, Start date: 05/30/11 6:35:00, Duration: 30 day, Stop date: 06/29/11 6:34:00 magnesium sulfate 2 gm, 50 mL, Route: IVPB, Drug 2011 2011 Completed form: INJ, Q2H, Start date: 05/28/11 20:30:00, Duration: 2 doses or times, Stop date: 05/28/11 22:30:00 BD Posiflush SF 5 ml, Route: IVP, Drug Form: INJ, 05/29/2011 06/05/2011 Discontinued Q12H, Start date: 05/29/11 21:00:00, Duration: 30 day, Stop date: 06/28/11 9:00:00 BD Posiflush SF 5 ml, Route: IVP, Drug Form: INJ, 05/29/2011 06/05/2011 Discontinued PRN, PRN Line Flush, Start date: 05/29/11 19:09:00, Duration: 30 day, Stop date: 06/28/11 19:08:00 Saxagliptin 5 mg Saxagliptin 5 mg tablet, 1 tab, 05/30/2011 06/07/2011 Discontinued tablet Drug form: MISC, Route: PO, QAM, 05/30/11 9:00:00, Duration: 30 day, Stop date: 06/28/11 9:00:00 K-Dur 20 40 mEq, 2 tab, Route: PO, Drug 06/04/2011 06/04/2011 Completed form: ERTAB, ONCE, Start date: 06/04/11 2:00:00, Stop date: 06/04/11 2:00:00 magnesium sulfate 2 gm, 50 mL, Route: IVPB, Drug 06/04/2011 06/04/2011 Completed form: INJ, Q2H, Start date: 06/04/11 20:00:00, Duration: 2 doses or times, Stop date: 06/04/11 22:00:00 Benadryl 25 mg, 1 cap, Route: PO, Drug form: 06/01/2011 06/01/2011 Completed CAP, ONCALL, Start date: 06/01/11 0:00:00, Duration: 1 doses or times, Stop date: 06/01/11 12:00:00 Glucophage 1000 mg 2,000 mg, 2 tab, Route: PO, Drug 05/30/2011 06/05/2011 Discontinued oral tablet form: TAB, QAM, Start date: 05/30/11 9:00:00, Duration: 30 day, Stop date: 06/28/11 9:00:00 insulin regular 7 unit, 0.07 mL, Route: SUB-Q, Drug 05/29/2011 06/05/2011 Discontinued human recombinant form: SOLN, PRN, PRN Abnormal Lab 100 units/mL Result, Start date: 05/29/11 injectable solution 19:09:00, Duration: 30 day, Stop date: 06/28/11 19:08:00 insulin regular 5 unit, 0.05 mL, Route: SUB-Q, Drug 05/29/2011 06/05/2011 Discontinued human recombinant form: SOLN, PRN, PRN Abnormal Lab 100 units/mL Result, Start date: 05/29/11 injectable solution 19:09:00, Duration: 30 day, Stop date: 06/28/11 19:08:00 ethanol 1 ea, Route: PO, Drug Form: LIQ, 06/02/2011 06/02/2011 Completed ONCALL, Start date: 06/02/11 0:00:00, Duration: 1 doses or times, Stop date: 06/02/11 12:00:00 insulin regular 3 unit, 0.03 mL, Route: SUB-Q, Drug 05/29/2011 06/05/2011 Discontinued human recombinant form: SOLN, PRN, PRN Abnormal Lab 100 units/mL Result, Start date: 05/29/11 injectable solution 19:09:00, Duration: 30 day, Stop date: 06/28/11 19:08:00 insulin regular 5 unit, 0.05 mL, Route: SUB-Q, Drug 2011 05/29/2011 Discontinued human recombinant form: SOLN, PRN, PRN Abnormal Lab 100 units/mL Result, Start date: 05/28/11 injectable solution 16:37:00, Duration: 30 day, Stop date: 06/27/11 16:36:00 insulin regular 3 unit, 0.03 mL, Route: SUB-Q, Drug 2011 05/29/2011 Discontinued human recombinant form: SOLN, PRN, PRN Abnormal Lab 100 units/mL Result, Start date: 05/28/11 injectable solution 16:37:00, Duration: 30 day, Stop date: 06/27/11 16:36:00 insulin regular 7 unit, 0.07 mL, Route: SUB-Q, Drug 2011 05/29/2011 Discontinued human recombinant form: SOLN, PRN, PRN Abnormal Lab 100 units/mL Result, Start date: 05/28/11 injectable solution 16:37:00, Duration: 30 day, Stop date: 06/27/11 16:36:00 Dextrose 50% Syringe 25 gm, 50 mL, Route: IVP, Drug 2011 05/29/2011 Discontinued Form: INJ, PRN, PRN Abnormal Lab Result, Start date: 05/28/11 16:37:00, Duration: 30 day, Stop date: 06/27/11 16:36:00 Dextrose 50% Syringe 6.25 gm, 12.5 mL, Route: IVP, Drug 2011 05/29/2011 Discontinued Form: INJ, PRN, PRN Abnormal Lab Result, Start date: 05/28/11 16:37:00, Duration: 30 day, Stop date: 06/27/11 16:36:00 Dextrose 50% Syringe 12.5 gm, 25 mL, Route: IVP, Drug 2011 05/29/2011 Discontinued Form: INJ, PRN, PRN Abnormal Lab Result, Start date: 05/28/11 16:37:00, Duration: 30 day, Stop date: 06/27/11 16:36:00 Florinef Acetate 0.1 mg, 1 tab, Route: PO, Drug 05/30/2011 06/05/2011 Discontinued form: TAB, TID, Start date: 05/30/11 9:00:00, Duration: 30 day, Stop date: 06/28/11 17:00:00 Saline Flush 0.9% 5 ml, Route: IVP, Drug Form: INJ, 2011 05/29/2011 Discontinued Q12H, Start date: 05/28/11 21:00:00, Duration: 30 day, Stop date: 06/27/11 9:00:00 Saline Flush 0.9% 5 ml, Route: IVP, Drug Form: INJ, 2011 05/29/2011 Discontinued PRN, PRN Line Flush, Start date: 05/28/11 16:37:00, Duration: 30 day, Stop date: 06/27/11 16:36:00 NS + KCL 20mEq/L 1,000 mL, Rate: 75 ml/hr, Infuse 06/04/2011 06/05/2011 Discontinued 1000ml (Premix) over: 13.3 hr, Route: IV, Total 1,000 mL Volume: 1,000, Start date: 06/04/11 0:57:00, Duration: 30 day, Stop date: 07/04/11 0:56:00 potassium chloride 20 mEq, 100 mL, Route: IVPB, Q2H, 06/04/2011 06/04/2011 Completed Start date: 06/04/11 2:00:00, Duration: 2 doses or times, Stop date: 06/04/11 4:00:00 heparin 5000 5,000 unit, 1 mL, Route: SUB-Q, 05/29/2011 06/02/2011 Discontinued units/mL injectable Drug form: INJ, Q8H, Start date: solution 05/29/11 17:00:00, Duration: 30 day, Stop date: 06/28/11 16:00:00 Saxagliptin 5 mg Saxagliptin 5 mg tablet, 1 tab, 05/27/2011 05/26/2011 Deleted tablet Drug form: MISC, Route: PO, Daily, 05/27/11 9:00:00, Duration: 30 doses or times, Stop date: 06/25/11 9:00:00 Glucophage 1000 mg 2,000 mg, 2 tab, Route: PO, Drug 05/27/2011 05/29/2011 Discontinued oral tablet form: TAB, QAM, Start date: 05/27/11 9:00:00, Duration: 30 day, Stop date: 06/25/11 9:00:00 Glucophage 1000 mg 2,000 mg, 2 tab, Route: PO, Drug 05/27/2011 05/26/2011 Deleted oral tablet form: TAB, QAM, Start date: 05/27/11 9:00:00, Duration: 30 day, Stop date: 06/25/11 9:00:00 Vimpat 150 mg, 3 tab, Route: PO, Drug 05/26/2011 05/29/2011 Discontinued form: TAB, BID, Start date: 05/26/11 11:45:00, Duration: 30 day, Stop date: 06/25/11 9:00:00 Dilantin 200 mg, 2 cap, Route: PO, Drug 05/29/2011 05/29/2011 Discontinued form: ERCAP, BID, Start date: 05/29/11 9:00:00, Duration: 30 day, Stop date: 06/27/11 17:00:00 magnesium sulfate 4 gm, 50 mL, IVPB, 50 ml/hr, ONCE, 2011 2011 Completed Start date: 05/28/11 19:30:00, 50 ml fentanyl 50 microgram, 1 mL, Route: IVP, 2011 05/29/2011 Discontinued Drug form: INJ, Q1H, PRN Pain, Start date: 05/28/11 13:47:00, Stop date: 06/27/11 13:46:00 Skelaxin 800 mg, 1 tab, Route: PO, Drug 05/29/2011 06/05/2011 Discontinued form: TAB, TID, PRN See Nurse's Notes, Start date: 05/29/11 22:17:00, Duration: 30 day, Stop date: 06/28/11 22:16:00 Sublimaze 50 microgram, 1 mL, Route: IVP, 05/29/2011 05/29/2011 Discontinued Drug form: INJ, Q1H, PRN Pain, Start date: 05/29/11 19:07:00, Duration: 30 day, Stop date: 06/28/11 19:06:00 Zonegran 200 mg, 2 cap, Route: PO, Drug 05/26/2011 05/26/2011 Deleted form: CAP, Q12H, Start date: 05/26/11 21:00:00, Duration: 30 day, Stop date: 06/25/11 9:00:00 fosphenytoin 500 mg, Route: IVPB, ONCE, 2011 2011 Discontinued Priority: STAT, Start date: 05/28/11 14:49:00, Stop date: 05/28/11 14:49:00 ondansetron 4 mg, 2 mL, Route: IVP, Drug form: 06/04/2011 06/04/2011 Discontinued INJ, ONCE, PRN Nausea & Vomiting, Start date: 06/04/11 12:16:00 Dulcolax Laxative 10 mg, 1 supp, Route: MA, Drug 06/06/2011 06/06/2011 Completed form: SUPP, ONCE, Start date: 06/06/11 12:00:00, Stop date: 06/06/11 12:00:00 naloxone 0.04 mg, 0.1 mL, Route: IVP, Drug 06/04/2011 06/04/2011 Discontinued form: INJ, Q2MIN, PRN Narcotic Reversal, Start date: 06/04/11 12:16:00, Duration: 8 doses or times, Stop date: Limited # of times hydromorphone 0.5 mg, 0.25 mL, Route: IVP, Drug 06/04/2011 06/04/2011 Discontinued form: INJ, Q5Min, PRN Pain Score 4-6, Start date: 06/04/11 12:16:00, Duration: 5 doses or times, Stop date: Limited # of times flumazenil 0.2 mg, 2 mL, Route: IVP, Drug 06/04/2011 06/04/2011 Discontinued form: INJ, PRN, PRN Other -See Comment, Initial dose, Start date: 06/04/11 12:16:00, Stop date: 06/04/11 23:00:00 Saxagliptin 5 mg Saxagliptin 5 mg tablet, 1 tab, 05/27/2011 05/29/2011 Discontinued tablet Drug form: MISC, Route: PO, QAM, 05/27/11 9:00:00, Duration: 30 day, Stop date: 06/25/11 9:00:00 Cerebyx 500 mg, 10 mL, Route: IVPB, ONCALL, 06/03/2011 06/03/2011 Completed Start date: 06/03/11 11:30:00, Duration: 1 doses or times, Stop date: 06/03/11 12:00:00 NS + KCL 20mEq/L 1,000 mL, Rate: 75 ml/hr, Infuse 06/05/2011 06/07/2011 Discontinued 1000ml (Premix) over: 13.3 hr, Route: IV, Total 1,000 mL Volume: 1,000, Start date: 06/05/11 15:16:00, Duration: 30 day, Stop date: 07/05/11 15:15:00 Ativan 2 mg, 1 mL, Route: IVP, Drug form: 06/03/2011 06/03/2011 Completed INJ, ONCE, Start date: 06/03/11 15:53:00, Stop date: 06/03/11 15:53:00 Citrate of Magnesia 300 mL, Route: PO, Drug Form: LIQ, 06/06/2011 06/06/2011 Completed ONCE, Start date: 06/06/11 12:00:00, Stop date: 06/06/11 12:00:00 Glucophage 1000 mg 2,000 mg, 2 tab, Route: PO, Drug 06/06/2011 06/07/2011 Discontinued oral tablet form: TAB, QAM, Start date: 06/06/11 9:00:00, Duration: 30 day, Stop date: 07/05/11 9:00:00 calcium gluconate 3,000 mg, 30 mL, Route: IVPB, ONCE, 06/05/2011 06/05/2011 Completed Start date: 06/05/11 7:00:00, Stop date: 06/05/11 7:00:00 Ativan 2 mg, 1 mL, Route: IV, Drug form: 2011 05/29/2011 Discontinued INJ, PRN, PRN Other -See Comment, Start date: 05/28/11 16:00:00, Duration: 2 doses or times, Stop date: Limited # of times Skelaxin 800 mg, 1 tab, Route: PO, Drug 06/05/2011 06/07/2011 Discontinued form: TAB, TID, PRN See Nurse's Notes, Start date: 06/05/11 15:16:00, Duration: 30 day, Stop date: 07/05/11 15:15:00 Zonegran 200 mg, 2 cap, Route: PO, Drug 05/26/2011 05/29/2011 Discontinued form: CAP, Bedtime, Start date: 05/26/11 21:00:00, Duration: 30 day, Stop date: 06/24/11 21:00:00 Vimpat 100 mg, 1 tab, Route: PO, Drug 05/26/2011 05/26/2011 Discontinued form: TAB, BID, Start date: 05/26/11 17:00:00, Duration: 30 day, Stop date: 06/25/11 9:00:00 Humulin R 100 5 unit, 0.05 mL, Route: SUB-Q, Drug 05/26/2011 2011 Discontinued units/mL injectable form: SOLN, Sliding Scale, PRN solution Blood Glucose Results, Start date: 05/26/11 16:58:00, Duration: 30 day, Stop date: 06/25/11 16:57:00 Humulin R 100 4 unit, 0.04 mL, Route: SUB-Q, Drug 05/26/2011 2011 Discontinued units/mL injectable form: SOLN, Sliding Scale, PRN solution Blood Glucose Results, Start date: 05/26/11 16:58:00, Duration: 30 day, Stop date: 06/25/11 16:57:00 Humulin R 100 3 unit, 0.03 mL, Route: SUB-Q, Drug 05/26/2011 2011 Discontinued units/mL injectable form: SOLN, Sliding Scale, PRN solution Blood Glucose Results, Start date: 05/26/11 16:58:00, Duration: 30 day, Stop date: 06/25/11 16:57:00 Antivert 25 mg, 1 tab, Route: PO, Drug form: 06/05/2011 06/07/2011 Discontinued TAB, TID, Start date: 06/05/11 17:00:00, Duration: 30 day, Stop date: 07/05/11 13:00:00 Humulin R 100 2 unit, 0.02 mL, Route: SUB-Q, Drug 05/26/2011 2011 Discontinued units/mL injectable form: SOLN, Sliding Scale, PRN solution Blood Glucose Results, Start date: 05/26/11 16:58:00, Duration: 30 day, Stop date: 06/25/11 16:57:00 Humulin R 100 1 unit, 0.01 mL, Route: SUB-Q, Drug 05/26/2011 2011 Discontinued units/mL injectable form: SOLN, Sliding Scale, PRN solution Blood Glucose Results, Start date: 05/26/11 16:58:00, Duration: 30 day, Stop date: 06/25/11 16:57:00 Dextrose 50% in 25 gm, 50 mL, Route: IV, Drug Form: 05/26/2011 2011 Discontinued Water IV INJ, PRN, PRN Blood Glucose Results, Start date: 05/26/11 16:57:00, Duration: 30 day, Stop date: 06/25/11 16:56:00 Milk of Magnesia 30 mL, Route: PO, Drug Form: SUSP, 06/05/2011 06/07/2011 Discontinued Q12H, PRN Other -See Comment, Start date: 06/05/11 15:15:00, Duration: 30 day, Stop date: 07/05/11 15:14:00 Vimpat 150 mg, 1.5 tab, Route: PO, Drug 06/05/2011 06/07/2011 Discontinued form: TAB, Q12H, Start date: 06/05/11 21:00:00, Duration: 30 day, Stop date: 07/05/11 9:00:00 insulin regular 7 unit, 0.07 mL, Route: SUB-Q, Drug 06/05/2011 06/07/2011 Discontinued human recombinant form: SOLN, PRN, PRN Abnormal Lab 100 units/mL Result, Start date: 06/05/11 injectable solution 15:14:00, Duration: 30 day, Stop date: 07/05/11 15:13:00 Zonegran 200 mg, Route: PO, Drug form: CAP, 05/26/2011 05/26/2011 Canceled Bedtime, Start date: 05/26/11 21:00:00, Duration: 30 day, Stop date: 06/24/11 21:00:00 Vimpat 150 mg, 1 tab, Route: PO, Drug 05/26/2011 05/26/2011 Discontinued form: TAB, BID, Start date: 05/26/11 9:00:00, Duration: 30 day, Stop date: 06/24/11 17:00:00 Ativan 2 mg, 1 mL, Route: IVP, Drug form: 05/26/2011 05/26/2011 Completed INJ, ONCE, Start date: 05/26/11 7:15:00, Stop date: 05/26/11 7:15:00 cefazolin 2 gm, Route: IVPB, Drug form: INJ, 05/29/2011 06/04/2011 Discontinued [id number], Start date: 05/29/11 20:00:00, Duration: 30 day, Stop date: 06/28/11 12:00:00 Senokot 8.6 mg, 1 tab, Route: PO, Drug 05/29/2011 06/05/2011 Discontinued Form: TAB, Bedtime, Start date: 05/29/11 21:00:00, Duration: 30 day, Stop date: 06/27/11 21:00:00 calcium gluconate 3,000 mg, 30 mL, Route: IVPB, ONCE, 2011 2011 Completed Start date: 05/28/11 19:30:00, Stop date: 05/28/11 19:30:00 Zofran 4 mg, 2 mL, Route: IVP, Drug form: 2011 05/29/2011 Discontinued INJ, Q8H, PRN Nausea, Start date: 05/28/11 18:39:00, Stop date: 06/27/11 18:38:00 insulin regular 5 unit, 0.05 mL, Route: SUB-Q, Drug 06/05/2011 06/07/2011 Discontinued human recombinant form: SOLN, PRN, PRN Abnormal Lab 100 units/mL Result, Start date: 06/05/11 injectable solution 15:14:00, Duration: 30 day, Stop date: 07/05/11 15:13:00 Ativan 2 mg, 1 mL, Route: IV, Drug form: 2011 05/29/2011 Discontinued INJ, PRN, PRN Other -See Comment, Start date: 05/28/11 15:58:00, Duration: 2 doses or times, Stop date: Limited # of times Zofran 8 mg, 4 mL, Route: IVP, Drug form: 2011 2011 Completed INJ, ONCE, Start date: 05/28/11 18:38:00, Stop date: 05/28/11 18:38:00 insulin regular 3 unit, 0.03 mL, Route: SUB-Q, Drug 06/05/2011 06/07/2011 Discontinued human recombinant form: SOLN, PRN, PRN Abnormal Lab 100 units/mL Result, Start date: 06/05/11 injectable solution 15:14:00, Duration: 30 day, Stop date: 07/05/11 15:13:00 Saxagliptin 5 mg Saxagliptin 5 mg tablet, 1 tab, 05/26/2011 05/26/2011 Completed tablet Drug form: MISC, Route: PO, ONCE, 05/26/11 16:03:00, Stop date: 05/26/11 16:03:00 LORAzepam 1 mg, 0.5 mL, Route: IVP, Drug 05/26/2011 2011 Discontinued form: INJ, Q15Min, PRN Seizure, Start date: 05/26/11 7:19:00, Duration: 30 day, Stop date: 06/25/11 7:18:00 Antivert 25 mg, 1 tab, Route: PO, Drug form: 05/30/2011 06/05/2011 Discontinued TAB, TID, Start date: 05/30/11 9:00:00, Duration: 30 day, Stop date: 06/28/11 17:00:00 calcium chloride 1,000 mg, 10 mL, Route: IVPB, ONCE, 06/04/2011 06/04/2011 Completed Start date: 06/04/11 19:30:00, Stop date: 06/04/11 19:30:00 docusate sodium 100 100 mg, 1 cap, Route: PO, Drug 05/30/2011 06/05/2011 Discontinued mg oral capsule form: CAP, BID, Start date: 05/30/11 9:00:00, Duration: 30 day, Stop date: 06/28/11 17:00:00 acetaminophen-hydroc 1 tab, Route: PO, Drug Form: TAB, 06/05/2011 06/07/2011 Discontinued odone 325 mg-5 mg Q6H, PRN Pain, Start date: 06/05/11 oral tablet 15:05:00, Duration: 30 day, Stop date: 07/05/11 15:04:00 Dextrose 50% Syringe 6.25 gm, 12.5 mL, Route: IVP, Drug 05/29/2011 06/05/2011 Discontinued Form: INJ, PRN, PRN Abnormal Lab Result, Start date: 05/29/11 19:03:00, Duration: 30 day, Stop date: 06/28/11 19:02:00 Tylenol 650 mg, 2 tab, Route: PO, Drug 06/05/2011 06/07/2011 Discontinued form: TAB, Q6H, PRN Pain, Start date: 06/05/11 15:04:00, Duration: 30 day, Stop date: 07/05/11 15:03:00 Dextrose 50% Syringe 25 gm, 50 mL, Route: IVP, Drug 05/29/2011 06/05/2011 Discontinued Form: INJ, PRN, PRN Abnormal Lab Result, Start date: 05/29/11 19:03:00, Duration: 30 day, Stop date: 06/28/11 19:02:00 Dextrose 50% Syringe 12.5 gm, 25 mL, Route: IVP, Drug 05/29/2011 06/05/2011 Discontinued Form: INJ, PRN, PRN Abnormal Lab Result, Start date: 05/29/11 19:03:00, Duration: 30 day, Stop date: 06/28/11 19:02:00 Dilaudid 0.2 mg, 0.1 mL, Route: IV, Drug 06/05/2011 06/07/2011 Discontinued form: INJ, Q2H, PRN Pain, Priority: STAT, Start date: 06/05/11 15:13:00, Duration: 30 day, Stop date: 07/05/11 15:12:00 dexamethasone 4 mg, 0.4 mL, Route: IVP, Drug 06/05/2011 06/05/2011 Discontinued form: INJ, Q6H, Start date: 06/05/11 0:00:00, Duration: 1 day, Stop date: 06/05/11 18:00:00 Celexa 30 mg, 1.5 tab, Route: PO, Drug 05/26/2011 05/29/2011 Discontinued form: TAB, Daily, Start date: 05/26/11 18:30:00, Duration: 30 day, Stop date: 06/25/11 9:00:00 heparin 5,000 unit, 1 mL, Route: SUB-Q, 06/05/2011 06/07/2011 Discontinued Drug form: INJ, Q8H, Start date: 06/05/11 16:00:00, Duration: 30 day, Stop date: 07/05/11 8:00:00 Florinef Acetate 0.1 mg, 1 tab, Route: PO, Drug 06/05/2011 06/07/2011 Discontinued form: TAB, TID, Start date: 06/05/11 17:00:00, Duration: 30 day, Stop date: 07/05/11 13:00:00 Ofirmev 1,000 mg, Route: IV, Drug form: 2011 2011 Completed INJ, ONCE, PRN Pain, for > or=50 kg, Start date: 05/28/11 14:00:00 Pepcid 20 mg oral 20 mg, 1 tab, Route: PO, Drug form: 2011 05/29/2011 Discontinued tablet TAB, Q12H, Start date: 05/28/11 21:00:00, Duration: 30 day, Stop date: 06/27/11 9:00:00 Ativan 2 mg, 1 mL, Route: IVP, Drug form: 05/26/2011 05/26/2011 Discontinued INJ, ONCE, PRN Anxiety, Start date: 05/26/11 7:11:00 docusate sodium 100 100 mg, 1 cap, Route: PO, Drug 2011 05/29/2011 Discontinued mg oral capsule form: CAP, BID, Start date: 05/28/11 17:00:00, Duration: 30 day, Stop date: 06/27/11 9:00:00 senna 8.6 mg oral 8.6 mg, 1 tab, Route: PO, Drug 2011 05/29/2011 Discontinued tablet Form: TAB, Bedtime, Start date: 05/28/11 21:00:00, Duration: 30 day, Stop date: 06/26/11 21:00:00 dexamethasone 4 mg, 1 mL, Route: IVP, Drug form: 05/30/2011 05/29/2011 Discontinued INJ, Q6H, Start date: 05/30/11 0:00:00, Duration: 2 day, Stop date: 05/31/11 18:00:00 Ancef 2 gm, Route: IVPB, Q8H, Start date: 2011 2011 Canceled 05/28/11 16:00:00, Duration: 3 doses or times, Stop date: 05/29/11 8:00:00 Celexa 30 mg, 1.5 tab, Route: PO, Drug 05/30/2011 06/05/2011 Discontinued form: TAB, Daily, Start date: 05/30/11 9:00:00, Duration: 30 day, Stop date: 06/28/11 9:00:00 Zofran 4 mg, 2 mL, Route: IVP, Drug form: 05/29/2011 06/05/2011 Discontinued INJ, Q8H, PRN Nausea, Start date: 05/29/11 19:14:00, Duration: 30 day, Stop date: 06/28/11 19:13:00 acetaminophen-hydroc 1 tab, Route: PO, Drug Form: TAB, 05/29/2011 06/05/2011 Discontinued odone 325 mg-5 mg Q6H, PRN Pain, Start date: 05/29/11 oral tablet 19:02:00, Duration: 30 day, Stop date: 06/28/11 19:01:00 potassium chloride 20 mEq, 100 mL, Route: IVPB, Drug 2011 2011 Completed form: INJ, Q2H, Total dose=40 mEq, Start date: 05/28/11 16:00:00, Duration: 2 doses or times, Stop date: 05/28/11 18:00:00 docusate sodium 100 100 mg, 1 cap, Route: PO, Drug 06/05/2011 06/07/2011 Discontinued mg oral capsule form: CAP, BID, Start date: 06/05/11 17:00:00, Duration: 30 day, Stop date: 07/05/11 9:00:00 Valium 2 mg, 1 tab, Route: PO, Drug form: 05/26/2011 05/29/2011 Discontinued TAB, TID, PRN Anxiety, Start date: 05/26/11 18:02:00, Duration: 30 day, Stop date: 06/25/11 18:01:00 Valium 2 mg, 1 tab, Route: PO, Drug form: 06/05/2011 06/07/2011 Discontinued TAB, TID, PRN Anxiety, Start date: 06/05/11 15:12:00, Duration: 30 day, Stop date: 07/05/11 15:11:00 Vimpat 100 mg, 1 tab, Route: PO, Drug 06/01/2011 06/02/2011 Discontinued form: TAB, Q12H, Start date: 06/01/11 21:00:00, Duration: 30 day, Stop date: 07/01/11 9:00:00 potassium chloride 20 mEq, 100 mL, Route: IVPB, Q2H, 06/04/2011 06/04/2011 Completed Start date: 06/04/11 18:00:00, Duration: 2 doses or times, Stop date: 06/04/11 20:00:00 fentanyl 50 microgram, Route: IVP, ONCE, 2011 2011 Discontinued Priority: STAT, Start date: 05/28/11 13:43:00, Stop date: 05/28/11 13:43:00 atenolol 50 mg oral 50 mg, 1 tab, Route: PO, Drug form: 05/26/2011 05/29/2011 Discontinued tablet TAB, BID, Start date: 05/26/11 17:00:00, Duration: 30 day, Stop date: 06/25/11 9:00:00 Cerebyx 1,545 mg, 30.9 mL, Route: IVPB, 06/03/2011 06/03/2011 Completed ONCALL, Start date: 06/03/11 10:00:00, Duration: 1 doses or times, Stop date: 06/03/11 11:00:00 Zonegran 200 mg, 2 cap, Route: PO, Drug 06/05/2011 06/07/2011 Discontinued form: CAP, Bedtime, Start date: 06/05/11 22:30:00, Duration: 30 day, Stop date: 07/05/11 21:00:00 dexamethasone 4 mg, 1 mL, Route: IVP, Drug form: 2011 05/29/2011 Discontinued INJ, Q6H, Start date: 05/28/11 18:00:00, Duration: 4 day, Stop date: 06/01/11 12:00:00 Dextrose 50% Syringe 6.25 gm, 12.5 mL, Route: IVP, Drug 06/05/2011 06/07/2011 Discontinued Form: INJ, PRN, PRN Abnormal Lab Result, Start date: 06/05/11 15:11:00, Duration: 30 day, Stop date: 07/05/11 15:10:00 Dextrose 50% Syringe 25 gm, 50 mL, Route: IVP, Drug 06/05/2011 06/07/2011 Discontinued Form: INJ, PRN, PRN Abnormal Lab Result, Start date: 06/05/11 15:10:00, Duration: 30 day, Stop date: 07/05/11 15:09:00 Zonegran 200 mg, 2 cap, Route: PO, Drug 06/01/2011 06/05/2011 Discontinued form: CAP, Bedtime, Start date: 06/01/11 21:00:00, Duration: 30 day, Stop date: 06/30/11 21:00:00 Vimpat 200 mg, 20 mL, 120 ml/hr, Route: 06/03/2011 06/03/2011 Completed IV, ONCE, Start date: 06/03/11 12:00:00, Stop date: 06/03/11 12:00:00 Dextrose 50% Syringe 12.5 gm, 25 mL, Route: IVP, Drug 06/05/2011 06/07/2011 Discontinued Form: INJ, PRN, PRN Abnormal Lab Result, Start date: 06/05/11 15:10:00, Duration: 30 day, Stop date: 07/05/11 15:09:00 Valium 2 mg, 1 tab, Route: PO, Drug form: 05/29/2011 06/05/2011 Discontinued TAB, TID, PRN Anxiety, Start date: 05/29/11 19:12:00, Duration: 30 day, Stop date: 06/28/11 19:11:00 dexamethasone 4 mg, 0.4 mL, Route: IVP, Drug 06/05/2011 06/06/2011 Completed form: INJ, Q6H, Start date: 06/05/11 18:00:00, Duration: 1 day, Stop date: 06/06/11 12:00:00 Glucophage 1000 mg 2,000 mg, 2 tab, Route: PO, Drug 05/26/2011 05/26/2011 Completed oral tablet form: TAB, ONCE, Start date: 05/26/11 15:54:00, Stop date: 05/26/11 15:54:00 tramadol 50 mg oral 100 mg, 2 tab, Route: PO, Drug 06/02/2011 06/01/2011 Discontinued tablet form: TAB, Q6AM, Start date: 06/02/11 6:00:00, Duration: 1 doses or times, Stop date: 06/02/11 6:00:00 fosphenytoin 200 mg, 4 mL, Route: IVPB, Drug 2011 2011 Completed form: INJ, ONCE, Priority: STAT, Start date: 05/28/11 15:18:00, Stop date: 05/28/11 15:18:00 LORAzepam 1 mg, 0.5 mL, Route: IV, Drug form: 2011 2011 Completed INJ, ONCE, x2, Start date: 05/28/11 15:18:00, Stop date: 05/28/11 15:18:00 cefazolin 2 gm, Route: IVPB, Drug form: INJ, 2011 05/29/2011 Discontinued ABXQ8H, Start date: 05/28/11 14:00:00, Stop date: 06/27/11 6:00:00 Celexa 30 mg, 1.5 tab, Route: PO, Drug 06/06/2011 06/07/2011 Discontinued form: TAB, Daily, Start date: 06/06/11 9:00:00, Duration: 30 day, Stop date: 07/05/11 9:00:00 ethanol 1 ea, Route: PO, Drug Form: LIQ, On 06/02/2011 05/31/2011 Deleted Adm, Start date: 06/02/11 0:00:00, Duration: 1 doses or times, Stop date: 06/02/11 12:00:00 cefepime 2 gm, Route: IVPB, Drug form: INJ, 06/04/2011 06/04/2011 Deleted ABXQ8H, Start date: 06/04/11 13:00:00, Duration: 30 day, Stop date: 07/04/11 5:00:00 Zonegran 200 mg, 2 cap, Route: PO, Drug 05/29/2011 05/30/2011 Discontinued form: CAP, Bedtime, Start date: 05/29/11 21:00:00, Duration: 30 day, Stop date: 06/27/11 21:00:00 vancomycin 1 gm, Route: IVPB, Drug form: INJ, 06/04/2011 06/05/2011 Discontinued ABXQ8H, Start date: 06/04/11 17:00:00, Duration: 30 day, Stop date: 07/04/11 9:00:00 Maxipime 2 gm, Route: IVPB, Drug form: INJ, 06/05/2011 06/07/2011 Discontinued ABXQ8H, Start date: 06/05/11 17:00:00, Duration: 30 day, Stop date: 07/05/11 9:00:00 magnesium sulfate 4 gm, 50 mL, IVPB, 50 ml/hr, ONCE, 06/04/2011 06/04/2011 Completed Start date: 06/04/11 18:00:00, 50 ml heparin 5000 5,000 unit, 1 mL, Route: SUB-Q, 06/05/2011 06/05/2011 Discontinued units/mL injectable Drug form: INJ, Q8H, Start date: solution 06/05/11 16:00:00, Duration: 30 day, Stop date: 07/05/11 8:00:00 Benadryl 50 mg, 2 cap, Route: PO, Drug form: 06/02/2011 06/01/2011 Discontinued CAP, Q6AM, Start date: 06/02/11 6:00:00, Duration: 1 doses or times, Stop date: 06/02/11 6:00:00 ketorolac 30 mg/mL 30 mg, 1 mL, Route: IV, Drug form: 06/06/2011 06/07/2011 Discontinued injectable solution INJ, Q6H, PRN Pain, Start date: 06/06/11 11:00:00, Duration: 2 day, Stop date: 06/08/11 10:59:00 Vimpat 150 mg, 1 tab, Route: PO, Drug 05/29/2011 05/31/2011 Discontinued form: TAB, Q12H, Start date: 05/29/11 21:00:00, Duration: 30 day, Stop date: 06/28/11 9:00:00 acetaminophen-hydroc 2 tab, Route: PO, Drug Form: TAB, 06/05/2011 06/07/2011 Discontinued odone 325 mg-5 mg Q4H, PRN Pain, Start date: 06/05/11 oral tablet 15:08:00, Duration: 30 day, Stop date: 07/05/11 15:07:00 potassium chloride 20 mEq, 100 mL, Route: IVPB, Q2H, 06/03/2011 06/04/2011 Completed Start date: 06/03/11 22:00:00, Duration: 2 doses or times, Stop date: 06/04/11 0:00:00 Vimpat 150 mg, 1.5 tab, Route: PO, Drug 06/02/2011 06/05/2011 Discontinued form: TAB, Q12H, Start date: 06/02/11 21:00:00, Duration: 30 day, Stop date: 07/02/11 9:00:00 Milk of Magnesia 30 mL, Route: PO, Drug Form: SUSP, 05/31/2011 06/05/2011 Discontinued Q12H, PRN Other -See Comment, Start date: 05/31/11 17:23:00, Duration: 30 day, Stop date: 06/30/11 17:22:00 Dilantin 200 mg, 2 cap, Route: PO, Drug 05/29/2011 05/30/2011 Discontinued form: ERCAP, Q12H, Start date: 05/29/11 21:00:00, Duration: 30 day, Stop date: 06/28/11 9:00:00 tramadol 50 mg oral 50 mg, 1 tab, Route: PO, Drug form: 06/02/2011 06/01/2011 Discontinued tablet TAB, ONCALL, Start date: 06/02/11 0:00:00, Duration: 1 doses or times, Stop date: 06/02/11 12:00:00 vancomycin 1 gm, Route: IVPB, Drug form: INJ, 06/05/2011 06/07/2011 Discontinued ABXQ8H, Start date: 06/05/11 17:00:00, Duration: 30 day, Stop date: 07/05/11 9:00:00 Vimpat 200 mg, 2 tab, Route: PO, Drug 06/02/2011 06/02/2011 Completed form: TAB, ONCE, Start date: 06/02/11 10:45:00, Stop date: 06/02/11 10:45:00 ketorolac 30 mg/mL 30 mg, 1 mL, Route: IV, Drug form: 05/30/2011 06/03/2011 Completed injectable solution INJ, Q6H-02, Priority: STAT, Start date: 05/30/11 2:26:00, Duration: 4 day, Stop date: 06/03/11 2:00:00 atenolol 50 mg oral 50 mg, 1 tab, Route: PO, Drug form: 05/29/2011 05/29/2011 Discontinued tablet TAB, Q12H, Start date: 05/29/11 21:00:00, Duration: 30 day, Stop date: 06/28/11 9:00:00 Valium 5 mg, 1 mL, Route: IV, Drug form: 06/01/2011 06/01/2011 Completed INJ, PRN, PRN See Nurse's Notes, Start date: 06/01/11 14:24:00, Duration: 1 doses or times, Stop date: 06/01/11 23:00:00 BD Posiflush SF 5 ml, Route: IVP, Drug Form: INJ, 06/05/2011 06/07/2011 Discontinued Q12H, Start date: 06/05/11 21:00:00, Duration: 30 day, Stop date: 07/05/11 9:00:00 potassium chloride 20 mEq, 100 mL, Route: IVPB, Q2H, 06/03/2011 06/03/2011 Completed Start date: 06/03/11 18:00:00, Duration: 2 doses or times, Stop date: 06/03/11 20:00:00 Florinef Acetate 0.1 mg, 1 tab, Route: PO, Drug 05/26/2011 05/29/2011 Discontinued form: TAB, TID, Start date: 05/26/11 17:00:00, Duration: 30 day, Stop date: 06/25/11 13:00:00 BD Posiflush SF 5 ml, Route: IVP, Drug Form: INJ, 06/05/2011 06/07/2011 Discontinued PRN, PRN Line Flush, Start date: 06/05/11 15:18:00, Duration: 30 day, Stop date: 07/05/11 15:17:00 Valium 5 mg, 1 mL, Route: IV, Drug form: 06/01/2011 06/01/2011 Completed INJ, ONCE, Start date: 06/01/11 15:30:00, Stop date: 06/01/11 15:30:00 Senokot 8.6 mg, 1 tab, Route: PO, Drug 06/05/2011 06/07/2011 Discontinued Form: TAB, Bedtime, Start date: 06/05/11 21:00:00, Duration: 30 day, Stop date: 07/04/11 21:00:00 Dilantin 200 mg, 2 cap, Route: PO, Drug 06/05/2011 06/07/2011 Discontinued form: ERCAP, Q12H, Start date: 06/05/11 21:00:00, Duration: 30 day, Stop date: 07/05/11 9:00:00 Dilantin 200 mg, 2 cap, Route: PO, Drug 06/05/2011 06/05/2011 Discontinued form: ERCAP, Q12H, Start date: 06/05/11 9:40:00, Duration: 30 day, Stop date: 07/05/11 9:00:00 acetaminophen-hydroc 1 tab, Route: PO, Drug Form: TAB, 05/27/2011 05/29/2011 Discontinued odone 325 mg-5 mg Q6H, PRN Pain, Start date: 05/27/11 oral tablet 11:32:00, Duration: 30 day, Stop date: 06/26/11 11:31:00 Tylenol 650 mg, 2 tab, Route: PO, Drug 05/29/2011 06/05/2011 Discontinued form: TAB, Q6H, PRN Pain, Start date: 05/29/11 13:29:00, Duration: 30 day, Stop date: 06/28/11 13:28:00 Maxipime 2 gm, Route: IVPB, Drug form: INJ, 06/04/2011 06/05/2011 Discontinued ABXQ8H, Start date: 06/04/11 17:00:00, Duration: 30 day, Stop date: 07/04/11 9:00:00 potassium chloride 20 mEq, 100 mL, Route: IVPB, Q2H, 05/29/2011 05/29/2011 Completed Start date: 05/29/11 5:30:00, Duration: 3 doses or times, Stop date: 05/29/11 8:00:00 acetaminophen-hydroc 2 tab, Route: PO, Drug Form: TAB, 05/29/2011 06/05/2011 Discontinued odone 325 mg-5 mg Q4H, PRN Pain, Start date: 05/29/11 oral tablet 17:26:00, Duration: 30 day, Stop date: 06/28/11 17:25:00 Antivert 25 mg, 1 tab, Route: PO, Drug form: 05/26/2011 05/29/2011 Discontinued TAB, TID, Start date: 05/26/11 17:00:00, Duration: 30 day, Stop date: 06/25/11 13:00:00 Benadryl 25 mg, 1 cap, Route: PO, Drug form: 06/02/2011 06/01/2011 Discontinued CAP, ONCALL, Start date: 06/02/11 0:00:00, Duration: 1 doses or times, Stop date: 06/02/11 12:00:00 cefepime 2 gm, Route: IVPB, ONCE, Start 06/04/2011 06/04/2011 Completed date: 06/04/11 8:43:00, Stop date: 06/04/11 8:43:00 ketorolac 30 mg/mL 30 mg, 1 mL, Route: IV, Drug form: 05/30/2011 05/30/2011 Deleted injectable solution INJ, Q6H-02, Priority: STAT, Start date: 05/30/11 2:24:00, Duration: 4 day, Stop date: 06/03/11 2:00:00 lacosamide 300 mg, Route: IV, ONCE, Start 2011 2011 Completed date: 05/28/11 15:20:00, Stop date: 05/28/11 15:20:00 Ativan 2 mg, 1 mL, Route: IV, Drug form: 06/02/2011 06/02/2011 Completed INJ, ONCE, Start date: 06/02/11 10:45:00, Stop date: 06/02/11 10:45:00 Vital Signs Most recent to oldest [Reference Range]: 1 2 3 Height 170.18 cm (05/26/2011 05:55:00) Temperature Oral [96.4-99.1 DegF] 98.2 DegF (06/07/2011 07:00:00) 98.3 DegF (06/07/2011 04:30:00) 97.7 DegF (06/06/2011 20:17:00) Systolic Blood Pressure [90-140 mmHg] 112 mmHg (06/07/2011 07:00:00) 119 mmHg (06/07/2011 04:30:00) 119 mmHg (06/06/2011 20:17:00) Diastolic Blood Pressure [60-90 mmHg] 76 mmHg (06/07/2011 07:00:00) 80 mmHg (06/07/2011 04:30:00) 80 mmHg (06/06/2011 20:17:00) Respiratory Rate [14-20 BRMIN] 18 BRMIN (06/07/2011 04:30:00) 18 BRMIN (06/06/2011 20:17:00) 18 BRMIN (06/06/2011 06:00:00) Peripheral Pulse Rate [60-100 bpm] 95 bpm (06/07/2011 07:00:00) 90 bpm (06/07/2011 04:30:00) 76 bpm (06/06/2011 20:17:00) Weight 77.273 kg (05/26/2011 05:55:00) Results BACTERIAL - SEROLOGY Most recent to [Reference Range]: 1 2 3 MRSA by PCR Negative 1 (2011 16:40:00) 1Interpretive Data: INTERPRETATION: Negative......No MRSA DNA detected by PCR Positive......MRSA DNA detected by PCRASSAY LIMITATIONS:This is a screening test for colonization by MRSA. A positive test result indicates the patient is c olonized by MRSA, but does not necessarily mean that an infection is present or that treatment is necessary. Likewise, a negative test does not exclude coloniz ation or infection. Patients should be evaluatedclinically for symptoms and sig ns of infection before making therapeutic decisions. Routine decolonization is discouraged and should only be considered for select patients after consultation with an infectious diseases specialist. BEDSIDE GLUCOSE TESTING Most recent to [Reference Range]: 1 2 3 Gluc POC Lifscn [65-110 mg/dL] 364 mg/dL 2 *HI* (06/06/2011 22:23:00) 155 mg/dL 3 *HI* (06/06/2011 13:35:00) 245 mg/dL 4 *HI* (06/06/2011 09:22:00) Comment1 Notify RN/MD *NA* (06/05/2011 11:43:00) Notify RN/MD *NA* (06/05/2011 07:29:00) Notify RN/MD *NA* (06/05/2011 03:28:00) 2Interpretive Data: Upper Reportable Limit: 200 mg/dL. 3Interpretive Data: Upper Reportable Limit: 200 mg/dL. 4Interpretive Data: Upper Reportable Limit: 200 mg/dL. URINALYSIS Most recent to oldest [Reference Range]: 1 2 3 UA Turbidity [Clear] Slight Cloudy (05/26/2011 06:45:00) UA Color [Yellow] Yellow *NA* (05/26/2011 06:45:00) UA pH [5.0-8.0] 7.0 (05/26/2011 06:45:00) UA Spec Grav [<=1.030] 1.009 (2011 16:45:00) UA Spec Grav [<=1.030] 1.015 (05/26/2011 06:45:00) UA Glucose [Negative mg/dL] >=1000 mg/dL *ABN* (05/26/2011 06:45:00) UA Blood [Negative] Trace *ABN* (05/26/2011 06:45:00) UA Ketones [Negative] Trace *ABN* (05/26/2011 06:45:00) UA Protein [Negative] Negative (05/26/2011 06:45:00) UA Urobilinogen [0.1-1.0 EU/dL] 0.2 EU/dL (05/26/2011 06:45:00) UA Bili [Negative] Negative *NA* (05/26/2011 06:45:00) UA Leuk Est [Negative] Negative (05/26/2011 06:45:00) UA Nitrite [Negative] Negative (05/26/2011 06:45:00) UA WBC [None Seen /HPF] 3-5 /HPF (05/26/2011 06:45:00) UA RBC [0-2 /HPF] 3-5 /HPF *ABN* (05/26/2011 06:45:00) UA Bacteria [None Seen /HPF] Occasional /HPF (05/26/2011 06:45:00) UA Sq Epi [Few /LPF] Moderate /LPF *ABN* (05/26/2011 06:45:00) Micro? Performed (05/26/2011 06:45:00) BLOOD BANK RESULTS Most recent to oldest [Reference Range]: 1 2 3 ABO/Rh O POS *Unknown* (06/03/2011 15:10:00) O POS *Unknown* (05/27/2011 19:00:00) Antibody Scrn Negative (06/03/2011 15:10:00) Negative (05/27/2011 19:00:00) RBC product Product available (06/03/2011 15:10:00) Product available (05/27/2011 14:00:00) CHEMISTRY Most recent to oldest [Reference Range]: 1 2 3 Sodium Lvl [135-145 mEq/L] 140 mEq/L (06/06/2011 13:29:00) 141 mEq/L (06/05/2011 03:22:00) 144 mEq/L (06/04/2011 14:15:00) Potassium Lvl [3.5-5.1 mEq/L] 3.1 mEq/L *LOW* (06/06/2011 13:29:00) 4.0 mEq/L (06/05/2011 03:22:00) 3.7 mEq/L (06/04/2011 14:15:00) Chloride Lvl [95-109 mEq/L] 104 mEq/L (06/06/2011 13:29:00) 105 mEq/L (06/05/2011 03:22:00) 108 mEq/L (06/04/2011 14:15:00) CO2 [24-32 mEq/L] 20 mEq/L *LOW* (06/06/2011 13:29:00) 23 mEq/L *LOW* (06/05/2011 03:22:00) 13 mEq/L *LOW* (06/04/2011 14:15:00) AGAP [10.0-20.0 mEq/L] 19.1 mEq/L (06/06/2011 13:29:00) 17.0 mEq/L (06/05/2011 03:22:00) 26.7 mEq/L *HI* (06/04/2011 14:15:00) Creatinine Lvl [0.5-1.4 mg/dL] 0.9 mg/dL (06/06/2011 13:29:00) 0.6 mg/dL (06/05/2011 03:22:00) 0.5 mg/dL (06/04/2011 14:15:00) BUN [7-22 mg/dL] 3 mg/dL *LOW* (06/06/2011 13:29:00) 2 mg/dL *LOW* (06/05/2011 03:22:00) 3 mg/dL *LOW* (06/04/2011 14:15:00) B/C Ratio [6-25] 11 (05/26/2011 06:55:00) Glucose Lvl 142 mg/dL 5 *NA* (06/06/2011 13:29:00) 136 mg/dL 6 *NA* (06/05/2011 03:22:00) 256 mg/dL 7 *NA* (06/04/2011 14:15:00) Total Protein [6.4-8.4 g/dL] 6.7 g/dL (05/26/2011 06:55:00) Albumin Lvl [3.5-5.0 g/dL] 4.2 g/dL (05/26/2011 06:55:00) Globulin [2.0-4.0 g/dL] 2.5 g/dL (05/26/2011 06:55:00) A/G Ratio [0.7-1.6] 1.7 *HI* (05/26/2011 06:55:00) Calcium Lvl [8.5-10.5 mg/dL] 8.5 mg/dL (06/06/2011 13:29:00) 8.9 mg/dL (06/05/2011 03:22:00) 8.1 mg/dL *LOW* (06/04/2011 14:15:00) Phosphorus [2.5-4.5 mg/dL] 2.9 mg/dL (06/06/2011 13:29:00) 1.9 mg/dL *LOW* (06/05/2011 03:22:00) 4.3 mg/dL (06/04/2011 14:15:00) Magnesium Lvl [1.8-2.4 mg/dL] 1.2 mg/dL *LOW* (06/06/2011 13:29:00) 2.3 mg/dL (06/05/2011 03:22:00) 1.0 mg/dL 8 *CRIT* (06/04/2011 14:15:00) ALT [0-65 U/L] 25 U/L (05/26/2011 06:55:00) AST [0-37 U/L] 14 U/L (05/26/2011 06:55:00) Alk Phos [39-136 U/L] 76 U/L (05/26/2011 06:55:00) Bili Total [0.2-1.3 mg/dL] 0.4 mg/dL (05/26/2011 06:55:00) Lactic Acid Lvl [0.5-2.2 mMol/L] 1.4 mMol/L (06/04/2011 14:15:00) 1.1 mMol/L (2011 16:45:00) Ca Ion mgdL [4.65-5.20 mg/dL] 4.16 mg/dL *LOW* (06/05/2011 03:22:00) 4.72 mg/dL (06/04/2011 14:15:00) 4.88 mg/dL (05/29/2011 13:45:00) Ca Ion [1.16-1.30 mMol/L] 1.04 mMol/L *LOW* (06/05/2011 03:22:00) 1.18 mMol/L (06/04/2011 14:15:00) 1.22 mMol/L (05/29/2011 13:45:00) Ca Norm [1.16-1.30 mMol/L] 1.01 mMol/L *LOW* (06/05/2011 03:22:00) 1.14 mMol/L *LOW* (06/04/2011 14:15:00) 1.18 mMol/L (05/29/2011 13:45:00) Ca Norm mgdL [4.65-5.20 mg/dL] 4.04 mg/dL *LOW* (06/05/2011 03:22:00) 4.56 mg/dL *LOW* (06/04/2011 14:15:00) 4.72 mg/dL (05/29/2011 13:45:00) Valproic Acid Lvl [50-100 ug/ml] 39 ug/ml *LOW* (05/26/2011 06:55:00) POC A Hct [36.0-48.0 %] 31.0 % *LOW* (2011 15:17:00) 24.0 % *LOW* (2011 12:43:00) 23.0 % *LOW* (2011 11:46:00) POC A Ca Ion [1.16-1.30 mMol/L] 1.20 mMol/L (2011 15:17:00) 1.02 mMol/L *LOW* (2011 12:43:00) 1.01 mMol/L *LOW* (2011 11:46:00) POC A K [3.5-5.1 mEq/L] 2.6 mEq/L *CRIT* (2011 15:17:00) 2.7 mEq/L *CRIT* (2011 12:43:00) 2.8 mEq/L *CRIT* (2011 11:46:00) POC A Source ART *NA* (2011 16:26:00) ART *NA* (2011 15:17:00) ART *NA* (2011 12:43:00) POC A Temp 37.0 DegC *NA* (2011 16:26:00) 37.0 DegC *NA* (2011 15:17:00) 37.0 DegC *NA* (2011 12:43:00) POC A pH [7.35-7.45] 7.30 *LOW* (2011 16:26:00) 7.31 *LOW* (2011 15:17:00) 7.41 (2011 12:43:00) POC A PCO2 [35-45 mmHg] 52 mmHg *HI* (2011 16:26:00) 52 mmHg *HI* (2011 15:17:00) 34 mmHg *LOW* (2011 12:43:00) POC A PO2 [80-100 mmHg] 333 mmHg *HI* (2011 16:26:00) 405 mmHg *HI* (2011 15:17:00) 265 mmHg *HI* (2011 12:43:00) POC A HCO3 [22-26 mMol/L] 26 mMol/L (2011 16:26:00) 26 mMol/L (2011 15:17:00) 22 mMol/L (2011 12:43:00) POC A BE [-2-2 mMol/L] -1 mMol/L (2011 16:26:00) 0 mMol/L (2011 15:17:00) -3 mMol/L *LOW* (2011 12:43:00) POC A O2 Sat [95.0-100.0 %] 100.0 % (2011 16:26:00) 100.0 % (2011 15:17:00) 100.0 % (2011 12:43:00) POC A Glu [65-110 mg/dL] 242 mg/dL *HI* (2011 15:17:00) 200 mg/dL *HI* (2011 12:43:00) 160 mg/dL *HI* (2011 11:46:00) POC A LA [0.5-2.2 mMol/L] 2.3 mMol/L *HI* (2011 15:17:00) 1.3 mMol/L (2011 12:43:00) 1.0 mMol/L (2011 11:46:00) POC A Na [135-145 mEq/L] 141 mEq/L (2011 15:17:00) 144 mEq/L (2011 12:43:00) 140 mEq/L (2011 11:46:00) 5Interpretive Data: Reference Ranges : 0 - 7 days : 41 - 90 mg/dL7 days - 150 yrs : 70 - 99 mg/dL (fasting), based on the clinical recommendations of the [employer] [employer]. 6Interpretive Data: Reference Ranges : 0 - 7 days : 41 - 90 mg/dL7 days - 150 yrs : 70 - 99 mg/dL (fasting), based on the clinical recommendations of the [place] [employer]. 7Interpretive Data: Reference Ranges : 0 - 7 days : 41 - 90 mg/dL7 days - 150 yrs : 70 - 99 mg/dL (fasting), based on the clinical recommendations of the [place] [employer]. 8Result Comment: Critical Result(s) called to MEREDITH RUSSELL at 06/04/2011 16:03 by NK. Read back OK. HEMATOLOGY Most recent to oldest [Reference Range]: 1 2 3 WBC [3.7-10.4 K/CMM] 5.0 K/CMM (06/06/2011 13:29:00) 6.6 K/CMM (06/05/2011 03:22:00) 6.3 K/CMM (06/04/2011 14:15:00) RBC [4.20-5.40 M/CMM] 3.30 M/CMM *LOW* (06/06/2011 13:29:00) 3.42 M/CMM *LOW* (06/05/2011 03:22:00) 3.39 M/CMM *LOW* (06/04/2011 14:15:00) Hgb [12.0-16.0 g/dL] 10.0 g/dL *LOW* (06/06/2011 13:29:00) 10.6 g/dL *LOW* (06/05/2011 03:22:00) 10.6 g/dL *LOW* (06/04/2011 14:15:00) Hct [36.0-48.0 %] 29.0 % *LOW* (06/06/2011 13:29:00) 30.2 % *LOW* (06/05/2011 03:22:00) 30.0 % *LOW* (06/04/2011 14:15:00) MCV [81.0-99.0 fL] 87.9 fL (06/06/2011 13:29:00) 88.4 fL (06/05/2011 03:22:00) 88.3 fL (06/04/2011 14:15:00) MCH [27.0-31.0 pg] 30.4 pg (06/06/2011 13:29:00) 31.0 pg (06/05/2011 03:22:00) 31.1 pg *HI* (06/04/2011 14:15:00) MCHC [32.0-36.0 g/dL] 34.6 g/dL (06/06/2011 13:29:00) 35.0 g/dL (06/05/2011 03:22:00) 35.2 g/dL (06/04/2011 14:15:00) RDW [11.5-14.5 %] 14.6 % *HI* (06/06/2011 13:29:00) 14.4 % (06/05/2011 03:22:00) 14.6 % *HI* (06/04/2011 14:15:00) Platelet [133-450 K/CMM] 195 K/CMM (06/06/2011 13:29:00) 225 K/CMM (06/05/2011 03:22:00) 243 K/CMM (06/04/2011 14:15:00) MPV [7.4-10.4 fL] 7.4 fL (06/06/2011 13:29:00) 7.1 fL *LOW* (06/05/2011 03:22:00) 7.4 fL (06/04/2011 14:15:00) Segs [45.0-75.0 %] 58.7 % (06/06/2011 13:29:00) 78.0 % *HI* (06/05/2011 03:22:00) 79.9 % *HI* (06/04/2011 14:15:00) Lymphocytes [20.0-40.0 %] 32.5 % (06/06/2011 13:29:00) 12.3 % *LOW* (06/05/2011 03:22:00) 13.1 % *LOW* (06/04/2011 14:15:00) Monocytes [2.0-12.0 %] 8.5 % (06/06/2011 13:29:00) 9.4 % (06/05/2011 03:22:00) 6.8 % (06/04/2011 14:15:00) Eosinophils [0.0-4.0 %] 0.0 % (06/06/2011 13:29:00) 0.0 % (06/05/2011 03:22:00) 0.0 % (06/04/2011 14:15:00) Basophils [0.0-1.0 %] 0.3 % (06/06/2011 13:29:00) 0.3 % (06/05/2011 03:22:00) 0.2 % (06/04/2011 14:15:00) Segs-Bands # [1.5-8.1 K/CMM] 2.9 K/CMM (06/06/2011 13:29:00) 5.2 K/CMM (06/05/2011 03:22:00) 5.0 K/CMM (06/04/2011 14:15:00) Lymphocytes # [1.0-5.5 K/CMM] 1.6 K/CMM (06/06/2011 13:29:00) 0.8 K/CMM *LOW* (06/05/2011 03:22:00) 0.8 K/CMM *LOW* (06/04/2011 14:15:00) Monocytes # [0.0-0.8 K/CMM] 0.4 K/CMM (06/06/2011 13:29:00) 0.6 K/CMM (06/05/2011 03:22:00) 0.4 K/CMM (06/04/2011 14:15:00) Eosinophils # [0.0-0.5 K/CMM] 0.0 K/CMM (06/06/2011 13:29:00) 0.0 K/CMM (06/05/2011 03:22:00) 0.0 K/CMM (06/04/2011 14:15:00) Basophils # [0.0-0.2 K/CMM] 0.0 K/CMM (06/06/2011 13:29:00) 0.0 K/CMM (06/05/2011 03:22:00) 0.0 K/CMM (06/04/2011 14:15:00) PT [12.0-14.7 seconds] 13.7 seconds (06/03/2011 15:05:00) 15.3 seconds *HI* (05/29/2011 02:30:00) 16.1 seconds *HI* (2011 16:45:00) INR [0.85-1.17] 1.05 9 (06/03/2011 15:05:00) 1.21 10 *HI* (05/29/2011 02:30:00) 1.29 11 *HI* (2011 16:45:00) PTT [22.9-35.8 seconds] 25.5 seconds 12 (06/03/2011 15:05:00) 24.1 seconds 13 (05/29/2011 02:30:00) 20.9 seconds 14 *LOW* (2011 16:45:00) 9Interpretive Data: RECOMMENDED RANGES FOR PROTIME INR: 2.0-3.0 for most medical and surgical thromboembolic states. 2.5-3.5 for artificial heart valves and recurrent embolism.INR SHOULD BE USED ONLY FOR PATIENTS ON STABLE ANTICOAGULANT THERAPY. 10Interpretive Data: RECOMMENDED RANGES FOR PROTIME INR: 2.0-3.0 for most medical and surgical thromboembolic states. 2.5-3.5 for artificial heart valves and recurrent embolism.INR SHOULD BE USED ONLY FOR PATIENTS ON STABLE ANTICOAGULANT THERAPY. 11Interpretive Data: RECOMMENDED RANGES FOR PROTIME INR: 2.0-3.0 for most medical and surgical thromboembolic states. 2.5-3.5 for artificial heart valves and recurrent embolism.INR SHOULD BE USED ONLY FOR PATIENTS ON STABLE ANTICOAGULANT THERAPY. 12Interpretive Data: Heparin Therapeutic Range: 57 - 92 Seconds 13Interpretive Data: Heparin Therapeutic Range: 57 - 92 Seconds 14Interpretive Data: Heparin Therapeutic Range: 57 - 92 Seconds Microbiology Reports PROCEDURE:Culture: Resistant Acinetobacter Screen STATUS: Auth (Verified) BODY SITE: COLLECTED DATE/TIME: 06/04/2011 14:00:00 SOURCE: Nasal Swab FREE TEXT SOURCE: swab FINAL REPORTS Final Report No Acinetobacter Isolated PRELIMINARY REPORTS Preliminary Report Culture In Progress PROCEDURE:Culture: MRSA STATUS: Auth (Verified) BODY SITE: COLLECTED DATE/TIME: 06/04/2011 14:00:00 SOURCE: Nasal Swab FREE TEXT SOURCE: swab FINAL REPORTS Final Report No Methicillin Resistant Staphylococcus Aureus Isolated PROCEDURE:Culture: AFB w/Smear STATUS: In Progress BODY SITE: COLLECTED DATE/TIME: 06/04/2011 09:35:00 SOURCE: Tissue FREE TEXT SOURCE: STAIN REPORTS Stain Report No Acid Fast Bacilli Seen On Smear PROCEDURE:Culture: Fungal w/Smear STATUS: In Progress BODY SITE: COLLECTED DATE/TIME: 06/04/2011 09:35:00 SOURCE: Tissue FREE TEXT SOURCE: STAIN REPORTS Stain Report No Yeast Or Fungal Elements Seen PROCEDURE:Culture: Aspirate/Body Fluid/Tissue STATUS: Auth (Verified) BODY SITE: COLLECTED DATE/TIME: 06/04/2011 09:35:00 SOURCE: Tissue FREE TEXT SOURCE: epidural material, stat or33 ([id number]), cup FINAL REPORTS Final Report No Growth At 3 Days PRELIMINARY REPORTS Preliminary Report No Growth At 2 Days Preliminary Report No Growth After Overnight Incubation STAIN REPORTS Stain Report No Wbc'S; No Organisms Seen Phone Report Made To: Nitin Calderón R.N. (ext. [phone]) 06/04/2011 10:42:36 Read Back Ok PROCEDURE:Culture: Anaerobic STATUS: In Progress BODY SITE: COLLECTED DATE/TIME: 06/04/2011 09:35:00 SOURCE: Tissue FREE TEXT SOURCE: PRELIMINARY REPORTS Preliminary Report No Anaerobes Isolated After 3 Days Preliminary Report No Anaerobes Isolated After 2 Days Preliminary Report Culture In Progress PROCEDURE:Culture: Anaerobic STATUS: In Progress BODY SITE: COLLECTED DATE/TIME: 06/04/2011 09:34:00 SOURCE: Aspirate FREE TEXT SOURCE: PRELIMINARY REPORTS Preliminary Report No Anaerobes Isolated After 3 Days Preliminary Report No Anaerobes Isolated After 2 Days Preliminary Report Culture In Progress PROCEDURE:Culture: Fungal w/Smear STATUS: In Progress BODY SITE: COLLECTED DATE/TIME: 06/04/2011 09:34:00 SOURCE: Aspirate FREE TEXT SOURCE: STAIN REPORTS Stain Report No Yeast Or Fungal Elements Seen PROCEDURE:Culture: Aspirate/Body Fluid/Tissue STATUS: Auth (Verified) BODY SITE: COLLECTED DATE/TIME: 06/04/2011 09:34:00 SOURCE: FLUID FREE TEXT SOURCE: subdural fluid, stat or33 ([id number]), cup FINAL REPORTS Final Report No Growth At 3 Days PRELIMINARY REPORTS Preliminary Report No Growth After Overnight Incubation Preliminary Report No Growth At 2 Days STAIN REPORTS Stain Report Rare Wbc'S; No Organisms Seen Phone Report Made To: Nitin Calderón R.N. (ext. [id number]) 06/04/2011 10:43:16 Read Back Ok PROCEDURE:Culture: Resistant Acinetobacter Screen STATUS: Auth (Verified) BODY SITE: COLLECTED DATE/TIME: 2011 16:40:00 SOURCE: Nasal Wash FREE TEXT SOURCE: (O2 swab) FINAL REPORTS Final Report No Acinetobacter Isolated PRELIMINARY REPORTS Preliminary Report Culture In Progress
--- OUTSIDE RECORDS SUMMARY | 2018-07-18 08:41 | XMS REPORT | CCD ---
Author Author Auto Generated Organization [facility] Address Unknown Phone Unavailable Care Team Providers Care Blueprinting Machine Operator Name Role Phone Pascale Mcbride CP Tyler Marrufo Lucinda CP Nitin Segundo CP Unavailable Holley Wahl CP Unavailable Chemo Munoz CP Unavailable Arabella Can CP [phone] Joel Gross CP Oralia Yu CP Moises Bright CP Unavailable Bonnie Unger CP Unavailable Fer Wisdom CP Unavailable Albina Quiroz CP Unavailable OdSandra benedict CP Unavailable PugnGudelia louie CP Unavailable Correa, Marisol M CP Raphael Tellez CP [phone] Juancarlos Falk CP Unavailable Celestine Enriquez CP Unavailable Viola Sorto CP [phone] Rm Jacobson CP Unavailable Jaison Reyes I CP [phone] Fern Herman CP Unavailable Pennie Whittington CP Unavailable SYSTEM, SYSTEM CP Unavailable Irma Mike CP Unavailable Kareem Vásquez CP Gerber Burch CP Naila Enriquez CP Unavailable CONTRIBUTOR_SYSTEM, QUEST CP Unavailable Ritchie Toney CP [phone] Grabiel Corona CP Unavailable Roger Enriquez CP Unavailable Heather Guevara CP Unavailable Gail Davis CP Unavailable Umer Vásquez CP [phone] Hui Castro CP Ruthy Buchanan CP Unavailable Lynch, Maday S CP Peyton Campos CP [phone] Jesusita Enriquez CP Unavailable Kathy Meade CP Unavailable Rayna Byers CP [phone] Renay Vasquez CP Allergies, Adverse Reactions, Alerts Substance Reaction Status morphine ?? Active NKDA ?? Canceled Problem List Condition Effective Dates Status Seizure precautions ?? Active Medications Medication Instructions Start Date End Date Status ketorolac 30 mg/mL 30 mg, 1 mL, Route: IV, Drug form: 03/18/2011 03/18/2011 Completed injectable solution INJ, ONCE, Start date: 03/18/11 17:00:00, Stop date: 03/18/11 17:00:00 ketorolac 30 mg/mL 15 mg, 1 mL, Route: IV, Drug form: 03/13/2011 03/14/2011 Completed injectable solution INJ, Q6H, PRN Pain, Start date: 03/13/11 21:21:00, Duration: 24 hr, Stop date: 03/14/11 21:20:00 tramadol 50 mg oral 100 mg, 2 tab, Route: PO, Drug 03/16/2011 03/16/2011 Completed tablet form: TAB, ONCE, Start date: 03/16/11 6:00:00, Stop date: 03/16/11 6:00:00 ethanol 1 ea, Route: PO, Drug Form: LIQ, 03/16/2011 03/16/2011 Completed ONCE, Start date: 03/16/11 6:00:00, Stop date: 03/16/11 6:00:00 Benadryl 50 mg, 2 cap, Route: PO, Drug form: 03/16/2011 03/16/2011 Completed CAP, ONCE, Start date: 03/16/11 6:00:00, Stop date: 03/16/11 6:00:00 Zonegran 150 mg, 3 cap, Route: PO, Drug 03/12/2011 03/13/2011 Discontinued form: CAP, Q12H, Start date: 03/12/11 17:00:00, Duration: 30 day, Stop date: 04/11/11 9:00:00 tramadol 50 mg oral 100 mg, 2 tab, Route: PO, Drug 03/15/2011 03/20/2011 Discontinued tablet form: TAB, Q6H, PRN Pain, Start date: 03/15/11 11:04:00, Duration: 30 day, Stop date: 04/14/11 11:03:00 Dulcolax Laxative 10 mg, 2 tab, Route: PO, Drug form: 03/15/2011 03/20/2011 Discontinued ECTAB, Daily, PRN Constipation, Start date: 03/15/11 18:19:00, Duration: 30 day, Stop date: 04/14/11 18:18:00 Celexa 20 mg, 1 tab, Route: PO, Drug form: 03/19/2011 03/20/2011 Discontinued TAB, Daily, Start date: 03/19/11 9:00:00, Duration: 30 day, Stop date: 04/17/11 9:00:00 ethanol 1 ea, Route: PO, Drug Form: LIQ, 03/14/2011 03/14/2011 Completed ONCE, Start date: 03/14/11 13:00:00, Stop date: 03/14/11 13:00:00 Benadryl 50 mg, 2 cap, Route: PO, Drug form: 03/18/2011 03/18/2011 Completed CAP, ONCE, Start date: 03/18/11 17:00:00, Stop date: 03/18/11 17:00:00 Zonegran 200 mg, 2 cap, Route: PO, Drug 03/19/2011 03/20/2011 Discontinued form: CAP, Q12H, Start date: 03/19/11 22:30:00, Duration: 30 day, Stop date: 04/18/11 21:00:00 Vimpat 50 mg, 1 tab, Route: PO, Drug form: 03/19/2011 03/20/2011 Discontinued TAB, Q12H, Start date: 03/19/11 22:00:00, Duration: 30 day, Stop date: 04/18/11 21:00:00 Reglan 10 mg, 2 mL, Route: IV, Drug form: 03/18/2011 03/18/2011 Completed INJ, ONCE, Start date: 03/18/11 17:00:00, Stop date: 03/18/11 17:00:00 acetaminophen-hydroc 2 tab, Route: PO, Drug Form: TAB, 03/11/2011 03/13/2011 Discontinued odone Q4H, PRN Pain, Start date: 03/11/11 18:10:00, Duration: 30 day, Stop date: 04/10/11 18:09:00 acetaminophen-hydroc 1 tab, Route: PO, Drug Form: TAB, 03/11/2011 03/13/2011 Discontinued odone Q4H, PRN Pain, Start date: 03/11/11 18:09:00, Duration: 30 day, Stop date: 04/10/11 18:08:00 Ativan 2 mg, 1 mL, Route: IVP, Drug form: 03/18/2011 03/19/2011 Completed INJ, ONCALL, Start date: 03/18/11 21:00:00, Duration: 30 day, Stop date: 04/17/11 20:59:00 ethanol 30 mL, Route: PO, Drug Form: LIQ, 03/17/2011 03/17/2011 Completed ONCE, Start date: 03/17/11 7:00:00, Stop date: 03/17/11 7:00:00 tramadol 50 mg oral 100 mg, 2 tab, Route: PO, Drug 03/17/2011 03/17/2011 Completed tablet form: TAB, ONCE, Start date: 03/17/11 7:00:00, Stop date: 03/17/11 7:00:00 Benadryl 50 mg, 1 cap, Route: PO, Drug form: 03/17/2011 03/17/2011 Completed CAP, ONCE, Start date: 03/17/11 7:00:00, Stop date: 03/17/11 7:00:00 Benadryl 50 mg, 2 cap, Route: PO, Drug form: 03/14/2011 03/14/2011 Completed CAP, ONCE, Start date: 03/14/11 13:00:00, Stop date: 03/14/11 13:00:00 Vital Signs Most recent to oldest [Reference Range]: 1 2 3 Height 165.10 cm (03/11/2011 09:04:00) ? Temperature Oral [96.4-99.1 DegF] 98.5 DegF (03/20/2011 07:42:00) ?? 98.9 DegF (03/19/2011 20:00:00) ?? 98.1 DegF (03/19/2011 07:52:00) ?? Systolic Blood Pressure [90-140 mmHg] 117 mmHg (03/20/2011 07:42:00) ?? 117 mmHg (03/19/2011 20:00:00) ?? 125 mmHg (03/19/2011 07:52:00) ?? Diastolic Blood Pressure [60-90 mmHg] 78 mmHg (03/20/2011 07:42:00) ?? 82 mmHg (03/19/2011 20:00:00) ?? 80 mmHg (03/19/2011 07:52:00) ?? Respiratory Rate [14-20 BRMIN] 18 BRMIN (03/20/2011 07:42:00) ?? 20 BRMIN (03/19/2011 20:00:00) ?? 18 BRMIN (03/19/2011 07:52:00) ?? Peripheral Pulse Rate [60-100 bpm] 70 bpm (03/20/2011 07:42:00) ?? 89 bpm (03/19/2011 20:00:00) ?? 70 bpm (03/19/2011 07:52:00) ?? Weight 77.273 kg (03/11/2011 09:04:00) ? Results CHEMISTRY Most recent to oldest [Reference Range]: 1 Sodium Lvl [135-145 mEq/L] 144 mEq/L (03/11/2011 09:07:00) ?? Potassium Lvl [3.5-5.1 mEq/L] 3.6 mEq/L (03/11/2011 09:07:00) ?? Chloride Lvl [95-109 mEq/L] 105 mEq/L (03/11/2011 09:07:00) ?? CO2 [24-32 mEq/L] 27 mEq/L (03/11/2011 09:07:00) ?? AGAP [10.0-20.0 mEq/L] 15.6 mEq/L (03/11/2011 09:07:00) ?? Creatinine Lvl [0.5-1.4 mg/dL] 0.6 mg/dL (03/11/2011 09:07:00) ?? BUN [7-22 mg/dL] 13 mg/dL (03/11/2011:07:00) ?? Glucose Lvl 107 mg/dL 1 *NA* (03/11/2011:07:00) ?? Total Protein [6.4-8.4 g/dL] 6.1 g/dL *LOW* (03/11/2011:07:00) ?? Albumin Lvl [3.5-5.0 g/dL] 3.7 g/dL (03/11/2011:07:00) ?? Globulin [2.0-4.0 g/dL] 2.4 g/dL (03/11/2011:07:00) ?? A/G Ratio [0.7-1.6] 1.5 (03/11/2011 09:07:00) ?? Calcium Lvl [8.5-10.5 mg/dL] 8.3 mg/dL *LOW* (03/11/2011:07:00) ?? ALT [0-65 U/L] 15 U/L (03/11/2011:07:00) ?? AST [0-37 U/L] 12 U/L (03/11/2011:07:00) ?? Alk Phos [39-136 U/L] 62 U/L (03/11/2011 09:07:00) ?? Bili Total [0.2-1.3 mg/dL] 0.3 mg/dL (03/11/2011 09:07:00) ?? Bili Direct [0.0-0.3 mg/dL] 0.1 mg/dL (03/11/2011 09:07:00) ?? Bili Indirect [0.0-1.0 mg/dL] 0.2 mg/dL (03/11/2011 09:07:00) ?? Ammonia [<<=45.0 uMol/L] 92.0 uMol/L *HI* (03/11/2011 09:07:00) ?? Valproic Acid Lvl [50-100 ug/ml] 99 ug/ml (03/11/2011 09:07:00) ?? Zonisamide Lvl [>10.0-40.0 microgram/mL] 9.2 microgram/mL 2 *LOW* (03/11/2011 09:07:00) ?? U Preg [>Negative] Negative (03/11/2011 21:46:00) ?? 1Interpretive Data: Reference Ranges : 0 - 7 days : 41 - 90 mg/dL7 days - 150 yrs : 70 - 99 mg/dL (fasting), based on the clinical recommendations of the [place] [employer]. 2Result Comment: Test Performed at:[facility] [id number] [place] [address] Usha Chambers MD, PhD HEMATOLOGY Most recent to oldest [Reference Range]: 1 WBC [3.7-10.4 K/CMM] 3.1 K/CMM *LOW* (03/11/2011 09:07:00) ?? RBC [4.20-5.40 M/CMM] 3.72 M/CMM *LOW* (03/11/2011 09:07:00) ?? Hgb [12.0-16.0 g/dL] 12.0 g/dL (03/11/2011 09:07:00) ?? Hct [36.0-48.0 %] 33.6 % *LOW* (03/11/2011 09:07:00) ?? MCV [81.0-99.0 fL] 90.4 fL (03/11/2011 09:07:00) ?? MCH [27.0-31.0 pg] 32.3 pg *HI* (03/11/2011 09:07:00) ?? MCHC [32.0-36.0 g/dL] 35.7 g/dL (03/11/2011 09:07:00) ?? RDW [11.5-14.5 %] 12.5 % (03/11/2011 09:07:00) ?? Platelet [133-450 K/CMM] 118 K/CMM *LOW* (03/11/2011 09:07:00) ?? MPV [7.4-10.4 fL] 8.3 fL (03/11/2011 09:07:00) ?? Segs [45.0-75.0 %] 39.8 % *LOW* (03/11/2011 09:07:00) ?? Lymphocytes [20.0-40.0 %] 49.4 % *HI* (03/11/2011 09:07:00) ?? Monocytes [2.0-12.0 %] 10.6 % (03/11/2011 09:07:00) ?? Eosinophils [0.0-4.0 %] 0.0 % (03/11/2011 09:07:00) ?? Basophils [0.0-1.0 %] 0.2 % (03/11/2011 09:07:00) ?? Segs-Bands # [1.5-8.1 K/CMM] 1.2 K/CMM *LOW* (03/11/2011 09:07:00) ?? Lymphocytes # [1.0-5.5 K/CMM] 1.5 K/CMM (03/11/2011 09:07:00) ?? Monocytes # [0.0-0.8 K/CMM] 0.3 K/CMM (03/11/2011 09:07:00) ?? Eosinophils # [0.0-0.5 K/CMM] 0.0 K/CMM (03/11/2011 09:07:00) ?? Basophils # [0.0-0.2 K/CMM] 0.0 K/CMM (03/11/2011 09:07:00) ??
--- OUTSIDE RECORDS SUMMARY | 2018-07-18 08:41 | XMS REPORT | CCD ---
Author Author Auto Generated Organization [facility] Address Unknown Phone Unavailable Care Team Providers Care Day Light Relief Operator Name Role Phone Carlos Lucas RP Allergies, Adverse Reactions, Alerts Substance Reaction Status morphine Active NKDA Canceled Problem List Condition Effective Dates Status Pain Active Seizure precautions Active Vital Signs Most recent to oldest [Reference Range]: 1 Height 154.94 cm (06/13/2011 15:02:00) Weight 55.000 kg (06/13/2011 15:02:00)
--- OUTSIDE RECORDS SUMMARY | 2018-07-18 08:41 | XMS REPORT | CCD ---
Author Author Auto Generated Organization [facility] Address Unknown Phone Unavailable Care Team Providers Care Windchill Administrator Name Role Phone Tyler Marrufo RP Allergies, Adverse Reactions, Alerts Substance Reaction Status morphine Active NKDA Canceled Problem List Condition Effective Dates Status Seizure precautions Active Vital Signs Most recent to oldest [Reference Range]: 1 2 3 Height 165.10 cm (05/22/2011 08:28:00) Temperature Oral [96.4-99.1 DegF] 98.4 DegF (05/22/2011 13:18:00) 97.8 DegF (05/22/2011 09:15:00) Systolic Blood Pressure [90-140 mmHg] 123 mmHg (05/22/2011 15:39:00) 117 mmHg (05/22/2011 14:44:00) 127 mmHg (05/22/2011 14:10:00) Diastolic Blood Pressure [60-90 mmHg] 76 mmHg (05/22/2011 15:39:00) 79 mmHg (05/22/2011 14:44:00) 84 mmHg (05/22/2011 14:10:00) Respiratory Rate [14-20 BRMIN] 18 BRMIN (05/22/2011 15:39:00) 18 BRMIN (05/22/2011 14:44:00) 18 BRMIN (05/22/2011 14:10:00) Peripheral Pulse Rate [60-100 bpm] 67 bpm (05/22/2011 15:39:00) 63 bpm (05/22/2011 14:44:00) 62 bpm (05/22/2011 14:10:00) Weight 77.273 kg (05/22/2011 08:28:00) Results CHEMISTRY Most recent to oldest [Reference Range]: 1 Sodium Lvl [135-145 mEq/L] 141 mEq/L (05/22/2011 08:31:00) Potassium Lvl [3.5-5.1 mEq/L] 3.2 mEq/L *LOW* (05/22/2011 08:31:00) Chloride Lvl [95-109 mEq/L] 101 mEq/L (05/22/2011::00) CO2 [24-32 mEq/L] 28 mEq/L (05/22/2011:31:00) AGAP [10.0-20.0 mEq/L] 15.2 mEq/L (05/22/2011::00) Creatinine Lvl [0.5-1.4 mg/dL] 0.7 mg/dL (05/22/2011:31:00) BUN [7-22 mg/dL] 14 mg/dL (05/22/2011::00) Glucose Lvl 219 mg/dL 1 *NA* (05/22/2011::00) Total Protein [6.4-8.4 g/dL] 6.2 g/dL *LOW* (05/22/2011::00) Albumin Lvl [3.5-5.0 g/dL] 3.7 g/dL (05/22/2011:31:00) Globulin [2.0-4.0 g/dL] 2.5 g/dL (05/22/2011::00) A/G Ratio [0.7-1.6] 1.5 (05/22/2011:31:00) Calcium Lvl [8.5-10.5 mg/dL] 9.0 mg/dL (05/22/2011:31:00) ALT [0-65 U/L] 13 U/L (05/22/2011::00) AST [0-37 U/L] 8 U/L (05/22/2011:31:00) Alk Phos [39-136 U/L] 60 U/L (05/22/2011::00) Bili Total [0.2-1.3 mg/dL] 0.3 mg/dL (05/22/2011 08:31:00) Bili Direct [0.0-0.3 mg/dL] 0.1 mg/dL (05/22/2011 08:31:00) Bili Indirect [0.0-1.0 mg/dL] 0.2 mg/dL (05/22/2011 08:31:00) Valproic Acid Lvl [50-100 ug/ml] 83 ug/ml (05/22/2011 08:31:00) 1Interpretive Data: Reference Ranges : 0 - 7 days : 41 - 90 mg/dL7 days - 150 yrs : 70 - 99 mg/dL (fasting), based on the clinical recommendations of the [place] [employer]. HEMATOLOGY Most recent to oldest [Reference Range]: 1 WBC [3.7-10.4 K/CMM] 3.4 K/CMM *LOW* (05/22/2011 08:31:00) RBC [4.20-5.40 M/CMM] 4.27 M/CMM (05/22/2011 08:31:00) Hgb [12.0-16.0 g/dL] 13.0 g/dL (05/22/2011 08:31:00) Hct [36.0-48.0 %] 37.0 % (05/22/2011 08:31:00) MCV [81.0-99.0 fL] 86.8 fL (05/22/2011 08:31:00) MCH [27.0-31.0 pg] 30.4 pg (05/22/2011 08:31:00) MCHC [32.0-36.0 g/dL] 35.1 g/dL (05/22/2011 08:31:00) RDW [11.5-14.5 %] 14.4 % (05/22/2011 08::00) Platelet [133-450 K/CMM] 107 K/CMM *LOW* (05/22/2011 08:31:00) MPV [7.4-10.4 fL] 8.6 fL (05/22/2011 08:31:00) Segs [45.0-75.0 %] 39.0 % *LOW* (05/22/2011 08:31:00) Lymphocytes [20.0-40.0 %] 49.1 % *HI* (05/22/2011 08:31:00) Monocytes [2.0-12.0 %] 11.2 % (05/22/2011 08:31:00) Eosinophils [0.0-4.0 %] 0.5 % (05/22/2011 08:31:00) Basophils [0.0-1.0 %] 0.2 % (05/22/2011 08:31:00) Segs-Bands # [1.5-8.1 K/CMM] 1.3 K/CMM *LOW* (05/22/2011 08:31:00) Lymphocytes # [1.0-5.5 K/CMM] 1.6 K/CMM (05/22/2011 08:31:00) Monocytes # [0.0-0.8 K/CMM] 0.4 K/CMM (05/22/2011 08:31:00) Eosinophils # [0.0-0.5 K/CMM] 0.0 K/CMM (05/22/2011 08:31:00) Basophils # [0.0-0.2 K/CMM] 0.0 K/CMM (05/22/2011 08:31:00) PT [12.0-14.7 seconds] 14.3 seconds (05/22/2011 08:31:00) INR [0.85-1.17] 1.11 2 (05/22/2011 08:31:00) PTT [22.9-35.8 seconds] 26.5 seconds 3 (05/22/2011 08:31:00) 2Interpretive Data: RECOMMENDED RANGES FOR PROTIME INR: 2.0-3.0 for most medical and surgical thromboembolic states. 2.5-3.5 for artificial heart valves and recurrent embolism.INR SHOULD BE USED ONLY FOR PATIENTS ON STABLE ANTICOAGULANT THERAPY. 3Interpretive Data: Heparin Therapeutic Range: 57 - 92 Seconds
--- OUTSIDE RECORDS SUMMARY | 2018-07-18 08:42 | XMS REPORT | CCD ---
Author Author Auto Generated Organization [facility] Address Unknown Phone Unavailable Care Team Providers Care Coagulating Drying Supervisor Name Role Phone Zeny Motley CP Allergies, Adverse Reactions, Alerts Substance Reaction Status morphine Active Problem List Condition Effective Dates Status Anemia Resolved DM - Diabetes mellitus Resolved Epilepsy Resolved Headache Resolved Hyperglycemia Active Hypothyroidism Resolved Pain < 11/30/2011 Inactive Seizure after head injury Resolved Seizure precautions Active Medications Medication Instructions Start Date End Date Status Sodium Chloride 0.9% 1,000 mL, Rate: 1,000 ml/hr, Infuse 01/29/2013 01/29/2013 Completed (Bolus) IV 1,000 mL over: 1 hr, Route: IV, Dosing Weight 84.545 kg, Total Volume: 1,000, Priority: STAT, Start date: 01/29/13 3:42:00, Duration: 1 doses or times, Stop date: 01/29/13 4:41:00, Bolus Dose Bolus Dose Omnipaque 350mg/ml 85 mL, Route: IVP, Drug Form: SOLN, 01/29/2013 01/29/2013 Completed Dosing Weight 84.545, kg, ONCALL, STAT, Start date: 01/29/13 4:45:00, Duration: 1 doses or times, Dose=2.2ml/kg, Max adqg=936hg -- "To be infused by Radiology Staff ONLY" Dose=2.2ml/kg, Max ictp=408hh -- "To be infused by Radiology Staff ONLY" Zofran 4 mg oral 4 mg, 1 tab, PO, Q8H, PRN, 24 tab, 01/29/2013 Ordered tablet as needed for nausea/vomiting, Substitution Allowed Reglan 10 mg, 2 mL, Route: IVP, Drug form: 01/29/2013 01/29/2013 Completed INJ, ONCE, Dosing Weight 84.545, kg, Priority: STAT, Start date: 01/29/13 3:55:00, Stop date: 01/29/13 3:55:00 phenytoin extended 200 mg, 2 cap, Route: PO, Drug 01/29/2013 01/29/2013 Completed release form: ERCAP, ONCE, Dosing Weight 84.545, kg, Start date: 01/29/13 5:52:00, Stop date: 01/29/13 5:52:00 pneumococcal 0.5 ml, Route: IM, Drug Form: INJ, 07/22/2011 07/23/2011 Completed 23-valent vaccine Start date: 07/22/11 9:00:00, Stop date: 07/22/11 9:00:00 Immunizations Vaccine Date Status pneumococcal 23-valent vaccine 07/23/2011 Auth (Verified) Vital Signs Most recent to oldest [Reference Range]: 1 2 3 Height 165.1 cm (01/28/2013 22:44:00) Temperature Oral [96.4-99.1 DegF] 98.4 DegF (01/29/2013 06:11:00) 98.6 DegF (01/29/2013 02:24:00) 98.8 DegF (01/28/2013 22:44:00) Systolic Blood Pressure [90-140 mmHg] 111 mmHg (01/29/2013 06:11:00) 136 mmHg (01/29/2013 04:12:00) 127 mmHg (01/29/2013 02:24:00) Diastolic Blood Pressure [60-90 mmHg] 68 mmHg (01/29/2013 06:11:00) 79 mmHg (01/29/2013 04:12:00) 87 mmHg (01/29/2013 02:24:00) Respiratory Rate [14-20 BRMIN] 14 BRMIN (01/29/2013 06:11:00) 18 BRMIN (01/29/2013 04:12:00) 18 BRMIN (01/29/2013 02:24:00) Peripheral Pulse Rate [60-100 bpm] 96 bpm (01/29/2013 06:11:00) 99 bpm (01/29/2013 04:12:00) 112 bpm *HI* (01/29/2013 02:24:00) Weight 84.545 kg (01/28/2013 22:44:00) Results CHEMISTRY Most recent to oldest [Reference Range]: 1 2 Sodium Lvl [135-145 mEq/L] 138 mEq/L (01/29/2013 05:09:00) 130 mEq/L *LOW* (01/29/2013 02:40:00) Potassium Lvl [3.5-5.1 mEq/L] 3.9 mEq/L (01/29/2013 05:09:00) Potassium Lvl [3.5-5.1] See Note 1 (01/29/2013 02:40:00) Chloride Lvl [95-109 mEq/L] 100 mEq/L (01/29/2013 05:09:00) 96 mEq/L (01/29/2013 02:40:00) CO2 [24-32 mEq/L] 23 mEq/L *LOW* (01/29/2013 05:09:00) 23 mEq/L *LOW* (01/29/2013 02:40:00) AGAP [10.0-20.0 mEq/L] 18.9 mEq/L (01/29/2013 05:09:00) AGAP [10.0-20.0] xxxxxxx (01/29/2013 02:40:00) Creatinine Lvl [0.5-1.4 mg/dL] 1.2 mg/dL (01/29/2013 05:09:00) 0.8 mg/dL (01/29/2013 02:40:00) eGFR 56 mL/min/1.73m2 2 *NA* (01/29/2013 05:09:00) 91 mL/min/1.73m2 3 *NA* (01/29/2013 02:40:00) BUN [7-22 mg/dL] 17 mg/dL (01/29/2013 05:09:00) 17 mg/dL (01/29/2013 02:40:00) Glucose Lvl [70-99 mg/dL] 152 mg/dL 4 *HI* (01/29/2013 05:09:00) 167 mg/dL 5 *HI* (01/29/2013 02:40:00) Calcium Lvl [8.5-10.5 mg/dL] 9.3 mg/dL (01/29/2013 05:09:00) 9.7 mg/dL (01/29/2013 02:40:00) Phenytoin Total [10.0-20.0 ug/ml] 6.9 ug/ml *LOW* (01/29/2013 03:42:00) 1Result Comment: Grossly hemolzyed, Called to Keny Hernández to [id number]/04/2013 04:14 2Result Comment: The eGFR is calculated using [...] from the National Kidney Disease Education Program ( NKDEP) which additionally recommends that when the eGFR is used in patients with extremes of body mass index for purposes of drug dosing, the eGFR should be mul tiplied by the estimated BMI. 3Result Comment: The eGFR is calculated using [...] from the National Kidney Disease Education Program ( NKDEP) which additionally recommends that when the eGFR is used in patients with extremes of body mass index for purposes of drug dosing, the eGFR should be mul tiplied by the estimated BMI. 4Interpretive Data: Adult reference range values reflect the clinical guidelines of the [place] [employer]. 5Interpretive Data: Adult reference range values reflect the clinical guidelines of the [place] [employer]. HEMATOLOGY Most recent to oldest [Reference Range]: 1 2 WBC [3.7-10.4 K/CMM] 6.3 K/CMM *NA* (01/29/2013 02:40:00) RBC [4.20-5.40 M/CMM] 5.59 M/CMM *HI* (01/29/2013 02:40:00) Hgb [12.0-16.0 g/dL] 15.2 g/dL (01/29/2013 02:40:00) Hct [36.0-48.0 %] 45.0 % (01/29/2013 02:40:00) MCV [81.0-99.0 fL] 80.5 fL *LOW* (01/29/2013 02:40:00) MCH [27.0-31.0 pg] 27.2 pg (01/29/2013 02:40:00) MCHC [32.0-36.0 g/dL] 33.8 g/dL (01/29/2013 02:40:00) RDW [11.5-14.5 %] 16.5 % *HI* (01/29/2013 02:40:00) Platelet [133-450 K/CMM] 290 K/CMM (01/29/2013 02:40:00) MPV [7.4-10.4 fL] 9.7 fL (01/29/2013 02:40:00) Segs [45.0-75.0 %] 38.0 % *LOW* (01/29/2013 02:40:00) Bands [0.0-11.0 %] 0.0 % (01/29/2013 02:40:00) Lymphocytes [20.0-40.0 %] 51.0 % *HI* (01/29/2013 02:40:00) Atypical Lymphs [<=0.0 %] 0.0 % (01/29/2013 02:40:00) Monocytes [2.0-12.0 %] 9.0 % (01/29/2013 02:40:00) Eosinophils [0.0-4.0 %] 1.0 % (01/29/2013 02:40:00) Basophils [0.0-1.0 %] 1.0 % (01/29/2013 02:40:00) Segs-Bands # [1.5-8.1 K/CMM] 2.4 K/CMM *NA* (01/29/2013 02:40:00) Lymphocytes # [1.0-5.5 K/CMM] 3.2 K/CMM *NA* (01/29/2013 02:40:00) Monocytes # [0.0-0.8 K/CMM] 0.6 K/CMM *NA* (01/29/2013 02:40:00) Eosinophils # [0.0-0.5 K/CMM] 0.1 K/CMM *NA* (01/29/2013 02:40:00) Basophils # [0.0-0.2 K/CMM] 0.1 K/CMM *NA* (01/29/2013 02:40:00) Tot Cell Ct 100 *NA* (01/29/2013 02:40:00) Anisocyte [None Seen] 1+ *ABN* (01/29/2013 02:40:00) Large Plt [None Seen] Slight *ABN* (01/29/2013 02:40:00) Procedures Procedures Date Related Diagnosis Emergency department visit for the evaluation and management 01/29/2013 00:00:00 of a patient, which requires these 3 fabian components within the constraints imposed by the urgency of the patient's clinical condition and/or mental status: A comprehensive history; A comprehensi Intravenous infusion, hydration; each additional hour (List 01/29/2013 00:00:00 separately in addition to code for primary procedure) Therapeutic, prophylactic, or diagnostic injection (specify 01/29/2013 00:00:00 substance or drug); intravenous push, single or initial substance/drug
--- OUTSIDE RECORDS SUMMARY | 2018-07-18 08:42 | XMS REPORT | CCD ---
Author Author Auto Generated Organization [facility] Address Unknown Phone Unavailable Care Team Providers Care Lab Analyst Name Role Phone Mitul Tarango CP Allergies, Adverse Reactions, Alerts Substance Reaction Status morphine Active Problem List Condition Effective Dates Status Pain < 11/30/2011 Inactive Seizure precautions Active Medications Medication Instructions Start Date End Date Status Lantus 20 unit, 0.2 mL, Route: SUB-Q, Drug 11/30/2011 12/01/2011 Discontinued form: INJ, QAM, Start date: 11/30/11 9:00:00, Duration: 30 day, Stop date: 12/29/11 9:00:00 NovoLog FlexPen 8 unit, 0.08 mL, Route: SUB-Q, Drug 11/30/2011 12/01/2011 Discontinued form: SOLN, Sliding Scale, PRN Blood Glucose Results, Start date: 11/30/11 10:22:00, Stop date: 12/30/11 10:21:00 NovoLog FlexPen 7 unit, 0.07 mL, Route: SUB-Q, Drug 11/30/2011 12/01/2011 Discontinued form: SOLN, Sliding Scale, PRN Blood Glucose Results, Start date: 11/30/11 10:21:00, Stop date: 12/30/11 10:20:00 NovoLog FlexPen 6 unit, 0.06 mL, Route: SUB-Q, Drug 11/30/2011 12/01/2011 Discontinued form: SOLN, Sliding Scale, PRN Blood Glucose Results, Start date: 11/30/11 10:21:00, Stop date: 12/30/11 10:20:00 NovoLog FlexPen 5 unit, 0.05 mL, Route: SUB-Q, Drug 11/30/2011 12/01/2011 Discontinued form: SOLN, Sliding Scale, PRN Blood Glucose Results, Start date: 08/04/12 10:20:00, Stop date: 12/30/11 10:19:00 NovoLog FlexPen 4 unit, 0.04 mL, Route: SUB-Q, Drug 11/30/2011 12/01/2011 Discontinued form: SOLN, Sliding Scale, PRN Blood Glucose Results, Start date: 11/30/11 10:20:00, Stop date: 12/30/11 10:19:00 pneumococcal 0.5 ml, Route: IM, Drug Form: INJ, 07/22/2011 07/23/2011 Completed 23-valent vaccine Start date: 07/22/11 9:00:00, Stop date: 07/22/11 9:00:00 NovoLog FlexPen 1 unit, 0.01 mL, Route: SUB-Q, Drug 11/30/2011 12/01/2011 Discontinued form: SOLN, Sliding Scale, PRN Blood Glucose Results, Start date: 11/30/11 10:17:00, Duration: 30 day, Stop date: 12/30/11 10:16:00 Immunizations Vaccine Date Status pneumococcal 23-valent vaccine 07/23/2011 Auth (Verified) Vital Signs Most recent to oldest [Reference Range]: 1 2 Height 165.10 cm (11/30/2011 07:57:00) Temperature Oral [96.4-99.1 DegF] 98.2 DegF (11/30/2011 19:35:00) 98.8 DegF (11/30/2011 08:22:00) Systolic Blood Pressure [90-140 mmHg] 104 mmHg (11/30/2011 19:35:00) 100 mmHg (11/30/2011 08:22:00) Diastolic Blood Pressure [60-90 mmHg] 66 mmHg (11/30/2011 19:35:00) 68 mmHg (11/30/2011 08:22:00) Respiratory Rate [14-20 BRMIN] 18 BRMIN (11/30/2011 19:35:00) 17 BRMIN (11/30/2011 08:22:00) Peripheral Pulse Rate [60-100 bpm] 78 bpm (11/30/2011 19:35:00) 74 bpm (11/30/2011 08:22:00) Weight 72.727 kg (11/30/2011 07:57:00) Results BEDSIDE GLUCOSE TESTING Most recent to oldest [Reference Range]: 1 2 Gluc POC [facility] [70-99 mg/dL] 221 mg/dL 1 *HI* (11/30/2011 18:12:00) 217 mg/dL 2 *HI* (11/30/2011 08:09:00) Comment1 Notify RN/MD *NA* (11/30/2011 18:12:00) Notify RN/ *NA* (11/30/2011 08:09:00) 1Interpretive Data: Upper Reportable Limit: 200 mg/dL. 2Interpretive Data: Upper Reportable Limit: 200 mg/dL.
--- OUTSIDE RECORDS SUMMARY | 2018-07-18 08:42 | XMS REPORT | CCD ---
Author Author Auto Generated Organization [facility] Address Unknown Phone Unavailable Care Team Providers Care Hydroponics Worker Name Role Phone Rome Monaco RP Unavailable April Bruno CP Allergies, Adverse Reactions, Alerts Substance Reaction Status morphine Active NKDA Canceled Problem List Condition Effective Dates Status Pain Active Seizure precautions Active Medications Medication Instructions Start Date End Date Status insulin regular 6 unit, 0.06 mL, Route: SUB-Q, Drug 07/22/2011 07/24/2011 Discontinued human recombinant form: SOLN, QID-Before Meals, PRN 100 units/mL Blood Glucose Results, Start date: injectable solution 07/22/11 13:02:00, Duration: 30 day, Stop date: 08/21/11 13:01:00 Humulin R 100 4 unit, 0.04 mL, Route: SUB-Q, Drug 07/22/2011 07/24/2011 Discontinued units/mL injectable form: SOLN, QID-Before Meals, PRN solution Blood Glucose Results, Start date: 07/22/11 13:01:00, Duration: 30 day, Stop date: 08/21/11 13:00:00 Vimpat 300 mg, 3 tab, Route: PO, Drug 07/22/2011 07/22/2011 Deleted form: TAB, Q12H, Start date: 07/22/11 9:00:00, Duration: 30 day, Stop date: 08/20/11 21:00:00 Neurontin 300 mg, 1 cap, Route: PO, Drug 07/22/2011 07/23/2011 Discontinued form: CAP, Q12H, Priority: NOW, Start date: 07/22/11 0:31:00, Duration: 30 day, Stop date: 08/20/11 21:00:00 pneumococcal 0.5 ml, Route: IM, Daily, Start 07/22/2011 07/22/2011 Canceled 23-valent vaccine date: 07/22/11 9:00:00, Duration: 1 doses or times, Stop date: 07/22/11 9:00:00 Dilantin 300 mg, 3 cap, Route: PO, Drug 07/22/2011 07/24/2011 Discontinued form: ERCAP, Bedtime, Priority: NOW, Start date: 07/22/11 0:30:00, Duration: 30 day, Stop date: 08/20/11 21:00:00 Valium 2 mg, 1 tab, Route: PO, Drug form: 07/22/2011 07/24/2011 Discontinued TAB, TID, Priority: NOW, Start date: 07/22/11 0:29:00, Duration: 30 day, Stop date: 08/20/11 17:00:00 Celexa 30 mg, 1.5 tab, Route: PO, Drug 07/22/2011 07/24/2011 Discontinued form: TAB, Daily, Start date: 07/22/11 9:00:00, Duration: 30 day, Stop date: 08/20/11 9:00:00 insulin regular 2 unit, 0.02 mL, Route: SUB-Q, Drug 07/22/2011 07/24/2011 Discontinued human recombinant form: SOLN, QID-Before Meals, PRN 100 units/mL Blood Glucose Results, Start date: injectable solution 07/22/11 13:04:00, Duration: 30 day, Stop date: 08/21/11 13:03:00 Vimpat 300 mg, 3 tab, Route: PO, Drug 07/22/2011 07/24/2011 Discontinued form: TAB, Q12H, Priority: NOW, Start date: 07/22/11 0:48:00, Duration: 30 day, Stop date: 08/20/11 21:00:00 Motrin 600 mg, 1 tab, Route: PO, Drug 07/22/2011 07/24/2011 Discontinued form: TAB, Q8H, PRN Headache, Start date: 07/22/11 9:18:00, Duration: 30 day, Stop date: 08/21/11 9:17:00 atenolol 50 mg oral 100 mg, 2 tab, Route: PO, Drug 07/22/2011 07/24/2011 Discontinued tablet form: TAB, Daily, Priority: Routine, Start date: 07/22/11 9:00:00, Duration: 30 day, Stop date: 08/20/11 9:00:00 pneumococcal 0.5 ml, Route: IM, Drug Form: INJ, 07/22/2011 07/23/2011 Completed 23-valent vaccine Start date: 07/22/11 9:00:00, Stop date: 07/22/11 9:00:00 pneumococcal 0.5 ml, Route: IM, Drug Form: INJ, 07/22/2011 07/22/2011 Completed 23-valent vaccine Daily, Start date: 07/22/11 9:00:00, Duration: 1 doses or times, Stop date: 07/22/11 9:00:00 saxagliptin 5 mg, 1 tab, Route: PO, Drug form: 07/22/2011 07/24/2011 Discontinued TAB, Dinner, Start date: 07/22/11 17:00:00, Duration: 30 day, Stop date: 08/20/11 17:00:00 Zonegran 200 mg, 2 cap, Route: PO, Drug 07/22/2011 07/24/2011 Discontinued form: CAP, Bedtime, Priority: NOW, Start date: 07/22/11 0:37:00, Duration: 30 day, Stop date: 08/20/11 21:00:00 Lantus 12 unit, 0.12 mL, Route: SUB-Q, 07/22/2011 07/24/2011 Discontinued Drug form: INJ, Daily, Start date: 07/22/11 14:00:00, Duration: 30 day, Stop date: 08/21/11 9:00:00 Glucophage XR 2,000 mg, 4 tab, Route: PO, Drug 07/22/2011 07/24/2011 Discontinued form: ERTAB, Dinner, Start date: 07/22/11 17:00:00, Duration: 30 day, Stop date: 08/20/11 17:00:00 insulin regular 10 unit, 0.1 mL, Route: SUB-Q, Drug 07/22/2011 07/24/2011 Discontinued human recombinant form: SOLN, QID-Before Meals, PRN 100 units/mL Blood Glucose Results, Start date: injectable solution 07/22/11 13:03:00, Duration: 30 day, Stop date: 08/21/11 13:02:00 Humulin R 100 8 unit, 0.08 mL, Route: SUB-Q, Drug 07/22/2011 07/24/2011 Discontinued units/mL injectable form: SOLN, QID-Before Meals, PRN solution Blood Glucose Results, Start date: 07/22/11 13:02:00, Duration: 30 day, Stop date: 08/21/11 13:01:00 Immunizations Vaccine Date Status pneumococcal 23-valent vaccine 07/23/2011 Auth (Verified) Vital Signs Most recent to oldest [Reference Range]: 1 2 3 Height 165.10 cm (07/21/2011 23:29:00) Temperature Oral [96.4-99.1 DegF] 97.6 DegF (07/24/2011 08:00:00) 97.3 DegF (07/23/2011 20:40:00) 98.0 DegF (07/23/2011 08:00:00) Systolic Blood Pressure [90-140 mmHg] 101 mmHg (07/24/2011 08:00:00) 92 mmHg (07/23/2011 20:40:00) 106 mmHg 1 (07/23/2011 08:00:00) Diastolic Blood Pressure [60-90 mmHg] 48 mmHg *LOW* (07/24/2011 08:00:00) 63 mmHg (07/23/2011 20:40:00) 67 mmHg (07/23/2011 08:00:00) Respiratory Rate [14-20 BRMIN] 18 BRMIN (07/23/2011 20:40:00) 19 BRMIN (07/22/2011 20:35:00) 18 BRMIN (07/22/2011 09:10:00) Peripheral Pulse Rate [60-100 bpm] 85 bpm (07/24/2011 08:00:00) 85 bpm (07/23/2011 20:40:00) 96 bpm (07/22/2011 20:35:00) Weight 72.273 kg (07/21/2011 23:29:00) 1Result Comment: err Results BEDSIDE GLUCOSE TESTING Most recent to oldest [Reference Range]: 1 2 3 Gluc POC Lifscn [70-99 mg/dL] 177 mg/dL 1 *HI* (07/24/2011 15:45:00) 281 mg/dL 2 *HI* (07/24/2011 13:29:00) 160 mg/dL 3 *HI* (07/24/2011 08:36:00) 1Interpretive Data: Upper Reportable Limit: 200 mg/dL. 2Interpretive Data: Upper Reportable Limit: 200 mg/dL. 3Interpretive Data: Upper Reportable Limit: 200 mg/dL. CHEMISTRY Most recent to oldest [Reference Range]: 1 2 3 Sodium Lvl [135-145 mEq/L] 139 mEq/L (07/21/2011 23:48:00) Potassium Lvl [3.5-5.1 mEq/L] 5.0 mEq/L (07/21/2011 23:48:00) Chloride Lvl [95-109 mEq/L] 103 mEq/L (07/21/2011 23:48:00) CO2 [24-32 mEq/L] 25 mEq/L (07/21/2011 23:48:00) AGAP [10.0-20.0 mEq/L] 16.0 mEq/L (07/21/2011 23:48:00) Creatinine Lvl [0.5-1.4 mg/dL] 0.6 mg/dL (07/21/2011 23:48:00) BUN [7-22 mg/dL] 11 mg/dL (07/21/2011 23:48:00) Glucose Lvl [70-99 mg/dL] 261 mg/dL 4 *HI* (07/21/2011 23:48:00) Total Protein [6.4-8.4 g/dL] 6.8 g/dL (07/21/2011 23:48:00) Albumin Lvl [3.5-5.0 g/dL] 3.7 g/dL (07/21/2011 23:48:00) Globulin [2.0-4.0 g/dL] 3.1 g/dL (07/21/2011 23:48:00) A/G Ratio [0.7-1.6] 1.2 (07/21/2011 23:48:00) Calcium Lvl [8.5-10.5 mg/dL] 9.1 mg/dL (07/21/2011 23:48:00) ALT [0-65 U/L] 20 U/L (07/21/2011 23:48:00) AST [0-37 U/L] 46 U/L *HI* (07/21/2011 23:48:00) Alk Phos [39-136 U/L] 99 U/L (07/21/2011 23:48:00) Bili Total [0.2-1.3 mg/dL] 0.2 mg/dL (07/21/2011 23:48:00) Bili Direct [0.0-0.3 mg/dL] 0.1 mg/dL (07/21/2011 23:48:00) Bili Indirect [0.0-1.0 mg/dL] 0.1 mg/dL (07/21/2011 23:48:00) Phenytoin Total [10.0-20.0 ug/ml] 14.6 ug/ml (07/21/2011 23:48:00) U Preg [Negative] Negative (07/21/2011 23:48:00) 4Interpretive Data: Adult reference range values reflect the clinical guidelinesof the [place] [employer]. HEMATOLOGY Most recent to oldest [Reference Range]: 1 2 3 WBC [3.7-10.4 K/CMM] 3.7 K/CMM (07/21/2011 23:48:00) RBC [4.20-5.40 M/CMM] 3.68 M/CMM *LOW* (07/21/2011 23:48:00) Hgb [12.0-16.0 g/dL] 9.2 g/dL *LOW* (07/21/2011 23:48:00) Hct [36.0-48.0 %] 27.6 % *LOW* (07/21/2011 23:48:00) MCV [81.0-99.0 fL] 74.9 fL *LOW* (07/21/2011 23:48:00) MCH [27.0-31.0 pg] 25.1 pg *LOW* (07/21/2011 23:48:00) MCHC [32.0-36.0 g/dL] 33.5 g/dL (07/21/2011 23:48:00) RDW [11.5-14.5 %] 16.9 % *HI* (07/21/2011 23:48:00) Platelet [133-450 K/CMM] 198 K/CMM (07/21/2011 23:48:00) MPV [7.4-10.4 fL] 9.0 fL (07/21/2011 23:48:00) Segs [45.0-75.0 %] 56.9 % (07/21/2011 23:48:00) Lymphocytes [20.0-40.0 %] 36.9 % (07/21/2011 23:48:00) Monocytes [2.0-12.0 %] 5.6 % (07/21/2011 23:48:00) Eosinophils [0.0-4.0 %] 0.0 % (07/21/2011 23:48:00) Basophils [0.0-1.0 %] 0.6 % (07/21/2011 23:48:00) Segs-Bands # [1.5-8.1 K/CMM] 2.1 K/CMM (07/21/2011 23:48:00) Lymphocytes # [1.0-5.5 K/CMM] 1.4 K/CMM (07/21/2011 23:48:00) Monocytes # [0.0-0.8 K/CMM] 0.2 K/CMM (07/21/2011 23:48:00) Eosinophils # [0.0-0.5 K/CMM] 0.0 K/CMM (07/21/2011 23:48:00) Basophils # [0.0-0.2 K/CMM] 0.0 K/CMM (07/21/2011 23:48:00) Microcyte [None Seen] 1+ *ABN* (07/21/2011 23:48:00) PT [12.0-14.7 seconds] 13.3 seconds (07/21/2011 23:48:00) INR [0.85-1.17] 1.01 5 (07/21/2011 23:48:00) PTT [22.9-35.8 seconds] 23.4 seconds 6 (07/21/2011 23:48:00) 5Interpretive Data: RECOMMENDED RANGES FOR PROTIME INR: 2.0-3.0 for most medical and surgical thromboembolic states. 2.5-3.5 for artificial heart valves and recurrent embolism.INR SHOULD BE USED ONLY FOR PATIENTS ON STABLE ANTICOAGULANT THERAPY. 6Interpretive Data: Heparin Therapeutic Range: 57 - 92 Seconds
--- OUTSIDE RECORDS SUMMARY | 2018-07-18 08:42 | XMS REPORT | CCD ---
Author Author Auto Generated Organization [facility] [place] Address Unknown Phone Unavailable Care Team Providers Care Curator Of Collections Name Role Phone Ritchie Mcbride CP Allergies, Adverse Reactions, Alerts Substance Reaction Status morphine Active Problem List Condition Effective Dates Status Pain Active Seizure precautions Active Medications Medication Instructions Start Date End Date Status pneumococcal 0.5 ml, Route: IM, Drug Form: INJ, 07/22/2011 07/23/2011 Completed 23-valent vaccine Start date: 07/22/11 9:00:00, Stop date: 07/22/11 9:00:00 Immunizations Vaccine Date Status pneumococcal 23-valent vaccine 07/23/2011 Auth (Verified)
--- OUTSIDE RECORDS SUMMARY | 2018-07-18 08:42 | XMS REPORT | CCD ---
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 Name Role Phone Mitul Tarango CP April Bruno CP Allergies, Adverse Reactions, Alerts Substance Reaction Status morphine Active NKDA Canceled Problem List Condition Effective Dates Status Pain Active Seizure precautions Active Medications Medication Instructions Start Date End Date Status insulin regular 4 unit, 0.04 mL, Route: SUB-Q, Drug 06/17/2011 06/17/2011 Completed human recombinant form: SOLN, ONCE, Start date: 100 units/mL 06/17/11 22:30:00, Stop date: injectable solution 06/17/11 22:30:00 hydrOXYzine 25 mg, 1 tab, Route: PO, Drug form: 06/16/2011 06/16/2011 Completed TAB, ONCE, PRN Itching, Start date: 06/16/11 20:51:00, Stop date: 07/16/11 19:50:00 Phenergan 12.5 mg, 0.5 mL, Route: IVPB, Drug 06/18/2011 06/18/2011 Completed form: INJ, ONCE, Start date: 06/18/11 18:30:00, Stop date: 06/18/11 18:30:00 Kombiglyze 2.08/999 Kombiglyze 2.08/999 mg, 2 tab, Drug 06/16/2011 06/18/2011 Discontinued mg form: MISC, Route: PO, QAM, 06/16/11 9:00:00, Duration: 30 day, Stop date: 07/15/11 9:00:00 Florinef Acetate 0.1 mg, 1 tab, Route: PO, Drug 06/16/2011 06/19/2011 Discontinued form: TAB, TID, Start date: 06/16/11 9:00:00, Duration: 30 day, Stop date: 07/15/11 17:00:00 insulin regular 6 unit, 0.06 mL, Route: SUB-Q, Drug 06/18/2011 06/19/2011 Discontinued human recombinant form: SOLN, Sliding Scale, PRN 100 units/mL Blood Glucose Results, Start date: injectable solution 06/18/11 9:32:00, Duration: 30 day, Stop date: 07/18/11 10:31:00 Humulin R 100 10 unit, 0.1 mL, Route: SUB-Q, Drug 06/15/2011 06/17/2011 Discontinued units/mL injectable form: SOLN, Sliding Scale, PRN solution Blood Glucose Results, Start date: 06/15/11 23:33:00, Duration: 30 day, Stop date: 07/16/11 0:32:00 Humulin R 100 4 unit, 0.04 mL, Route: SUB-Q, Drug 06/15/2011 06/17/2011 Discontinued units/mL injectable form: SOLN, Sliding Scale, PRN solution Blood Glucose Results, Start date: 06/15/11 23:33:00, Duration: 30 day, Stop date: 07/16/11 0:32:00 Humulin R 100 6 unit, 0.06 mL, Route: SUB-Q, Drug 06/15/2011 06/17/2011 Discontinued units/mL injectable form: SOLN, Sliding Scale, PRN solution Blood Glucose Results, Start date: 06/15/11 23:33:00, Duration: 30 day, Stop date: 07/16/11 0:32:00 Humulin R 100 8 unit, 0.08 mL, Route: SUB-Q, Drug 06/15/2011 06/17/2011 Discontinued units/mL injectable form: SOLN, Sliding Scale, PRN solution Blood Glucose Results, Start date: 06/15/11 23:33:00, Duration: 30 day, Stop date: 07/16/11 0:32:00 insulin regular 4 unit, 0.04 mL, Route: SUB-Q, Drug 06/18/2011 06/19/2011 Discontinued human recombinant form: SOLN, Sliding Scale, PRN 100 units/mL Blood Glucose Results, Start date: injectable solution 06/18/11 9:32:00, Duration: 30 day, Stop date: 07/18/11 10:31:00 Glucophage 1000 mg 1,000 mg, 1 tab, Route: PO, Drug 06/18/2011 06/19/2011 Discontinued oral tablet form: TAB, BID-Meals, Start date: 06/18/11 10:00:00, Duration: 30 day, Stop date: 07/18/11 8:00:00 acetaminophen-hydroc 1 tab, Route: PO, Drug Form: TAB, 06/16/2011 06/16/2011 Completed odone 325 mg-5 mg ONCE, Start date: 06/16/11 3:00:00, oral tablet Stop date: 06/16/11 3:00:00 Phenergan 12.5 mg, 0.5 mL, Route: IVPB, Drug 06/17/2011 06/17/2011 Completed form: INJ, ONCE, Start date: 06/17/11 18:45:00, Stop date: 06/17/11 18:45:00 Humulin R 100 2 unit, 0.02 mL, Route: SUB-Q, Drug 06/15/2011 06/17/2011 Discontinued units/mL injectable form: SOLN, Sliding Scale, PRN solution Blood Glucose Results, Start date: 06/15/11 23:32:00, Duration: 30 day, Stop date: 07/16/11 0:31:00 Zonegran 300 mg, 3 cap, Route: PO, Drug 06/17/2011 06/19/2011 Discontinued form: CAP, Bedtime, Start date: 06/17/11 21:00:00, Duration: 30 day, Stop date: 07/16/11 21:00:00 Tylenol 650 mg, 2 tab, Route: PO, Drug 06/16/2011 06/19/2011 Discontinued form: TAB, Q4H, PRN Pain/Fever, Start date: 06/16/11 0:38:00, Duration: 30 day, Stop date: 07/16/11 0:37:00 insulin regular 2 unit, 0.02 mL, Route: SUB-Q, Drug 06/18/2011 06/19/2011 Discontinued human recombinant form: SOLN, Sliding Scale, PRN 100 units/mL Blood Glucose Results, Start date: injectable solution 06/18/11 9:31:00, Duration: 30 day, Stop date: 07/18/11 10:30:00 Zonegran 300 mg, 3 cap, Route: PO, Drug 06/17/2011 06/17/2011 Completed form: CAP, ONCE, Start date: 06/17/11 12:00:00, Stop date: 06/17/11 12:00:00 ketorolac 30 mg/mL 15 mg, 0.5 mL, Route: IV, Drug 06/17/2011 06/17/2011 Completed injectable solution form: INJ, ONCE, Start date: 06/17/11 12:00:00, Stop date: 06/17/11 12:00:00 insulin regular 15 unit, 0.15 mL, Route: SUB-Q, 06/17/2011 06/17/2011 Completed human recombinant Drug form: SOLN, ONCE, Start date: 100 units/mL 06/17/11 12:00:00, Stop date: injectable solution 06/17/11 12:00:00 ketorolac 30 mg/mL 15 mg, 0.5 mL, Route: IV, Drug 06/18/2011 06/18/2011 Completed injectable solution form: INJ, ONCE, Start date: 06/18/11 18:15:00, Stop date: 06/18/11 18:15:00 atenolol 50 mg oral 150 mg, 3 tab, Route: PO, Drug 06/16/2011 06/17/2011 Discontinued tablet form: TAB, BID, Start date: 06/16/11 9:00:00, Duration: 30 day, Stop date: 07/15/11 17:00:00 Celexa 30 mg, 1.5 tab, Route: PO, Drug 06/16/2011 06/19/2011 Discontinued form: TAB, QAM, Start date: 06/16/11 9:00:00, Duration: 30 day, Stop date: 07/15/11 9:00:00 Valium 2 mg, 1 tab, Route: PO, Drug form: 06/16/2011 06/19/2011 Discontinued TAB, TID, Start date: 06/16/11 9:00:00, Duration: 30 day, Stop date: 07/15/11 17:00:00 Benadryl 25 mg, 1 cap, Route: PO, Drug form: 06/16/2011 06/16/2011 Completed CAP, On Adm, Start date: 06/16/11 12:30:00, Duration: 1 doses or times, Stop date: 06/16/11 14:30:00 Lantus 12 unit, 0.12 mL, Route: SUB-Q, 06/17/2011 06/19/2011 Discontinued Drug form: INJ, Q24H, Start date: 06/17/11 14:30:00, Stop date: 07/16/11 14:30:00 Sodium Chloride 0.9% IV, 250 ml/hr, ONCE, Start date: 06/17/2011 06/17/2011 Completed IV 06/17/11 14:30:00, 500 ml Cerebyx 500 mg, 10 mL, Route: IV, Drug 06/16/2011 06/16/2011 Completed form: INJ, ONCE, Start date: 06/16/11 13:39:00, Stop date: 06/16/11 13:39:00 magnesium sulfate 2 gm, 50 mL, Route: IVPB, Drug 06/18/2011 06/18/2011 Completed form: INJ, ONCE, Start date: 06/18/11 18:15:00, Stop date: 06/18/11 18:15:00 Ativan 1 mg, 0.5 mL, Route: IVP, Drug 06/18/2011 06/18/2011 Completed form: INJ, ONCE, Start date: 06/18/11 5:00:00, Stop date: 06/18/11 5:00:00 acetaminophen-hydroc 2 tab, Route: PO, Drug Form: TAB, 06/16/2011 06/19/2011 Discontinued odone 325 mg-5 mg Q6H, PRN Headache, Start date: oral tablet 06/16/11 15:38:00, Stop date: 07/16/11 15:37:00 Zonegran 200 mg, 2 cap, Route: PO, Drug 06/16/2011 06/17/2011 Discontinued form: CAP, Bedtime, Start date: 06/16/11 21:00:00, Duration: 30 day, Stop date: 07/15/11 21:00:00 Dilantin 200 mg, 2 cap, Route: PO, Drug 06/16/2011 06/19/2011 Discontinued form: ERCAP, BID, Start date: 06/16/11 9:00:00, Duration: 30 day, Stop date: 07/15/11 17:00:00 insulin regular 10 unit, 0.1 mL, Route: SUB-Q, Drug 06/18/2011 06/19/2011 Discontinued human recombinant form: SOLN, Sliding Scale, PRN 100 units/mL Blood Glucose Results, Start date: injectable solution 06/18/11 9:33:00, Duration: 30 day, Stop date: 07/18/11 10:32:00 Humulin R 100 15 unit, 0.15 mL, Route: SUB-Q, 06/17/2011 06/18/2011 Discontinued units/mL injectable Drug form: SOLN, Sliding Scale, PRN solution Blood Glucose Results, Start date: 06/17/11 12:36:00, Duration: 30 day, Stop date: 07/17/11 13:35:00 Humulin R 100 12 unit, 0.12 mL, Route: SUB-Q, 06/17/2011 06/18/2011 Discontinued units/mL injectable Drug form: SOLN, Sliding Scale, PRN solution Blood Glucose Results, Start date: 06/17/11 12:36:00, Duration: 30 day, Stop date: 07/17/11 13:35:00 Humulin R 100 9 unit, 0.09 mL, Route: SUB-Q, Drug 06/17/2011 06/18/2011 Discontinued units/mL injectable form: SOLN, Sliding Scale, PRN solution Blood Glucose Results, Start date: 06/17/11 12:36:00, Duration: 30 day, Stop date: 07/17/11 13:35:00 Humulin R 100 6 unit, 0.06 mL, Route: SUB-Q, Drug 06/17/2011 06/18/2011 Discontinued units/mL injectable form: SOLN, Sliding Scale, PRN solution Blood Glucose Results, Start date: 06/17/11 12:36:00, Duration: 30 day, Stop date: 07/17/11 13:35:00 Humulin R 100 3 unit, 0.03 mL, Route: SUB-Q, Drug 06/17/2011 06/18/2011 Discontinued units/mL injectable form: SOLN, Sliding Scale, PRN solution Blood Glucose Results, Start date: 06/17/11 12:36:00, Duration: 30 day, Stop date: 07/17/11 13:35:00 saxagliptin 5 mg, 1 tab, Route: PO, Drug form: 06/18/2011 06/19/2011 Discontinued TAB, QAM, Start date: 06/18/11 10:00:00, Duration: 30 day, Stop date: 07/18/11 8:00:00 insulin regular 8 unit, 0.08 mL, Route: SUB-Q, Drug 06/18/2011 06/19/2011 Discontinued human recombinant form: SOLN, Sliding Scale, PRN 100 units/mL Blood Glucose Results, Start date: injectable solution 06/18/11 9:33:00, Duration: 30 day, Stop date: 07/18/11 10:32:00 Dextrose 50% in 25 gm, 50 mL, Route: IV, Drug Form: 06/17/2011 06/19/2011 Discontinued Water IV INJ, PRN, PRN Blood Glucose Results, Start date: 06/17/11 12:36:00, Duration: 30 day, Stop date: 07/17/11 13:35:00 Vimpat 250 mg, 2.5 tab, Route: PO, Drug 06/16/2011 06/17/2011 Discontinued form: TAB, BID, Start date: 06/16/11 9:00:00, Duration: 30 day, Stop date: 07/15/11 17:00:00 acetaminophen-hydroc 1 tab, Route: PO, Drug Form: TAB, 06/16/2011 06/19/2011 Discontinued odone 325 mg-5 mg Q6H, PRN Headache, Start date: oral tablet 06/16/11 15:36:00, Stop date: 07/16/11 15:35:00 Dextrose 50% in 12.5 gm, 25 mL, Route: IV, Drug 06/17/2011 06/19/2011 Discontinued Water IV Form: INJ, PRN, PRN Blood Glucose Results, Start date: 06/17/11 12:35:00, Duration: 30 day, Stop date: 07/17/11 13:34:00 Benadryl 25 mg, 1 cap, Route: PO, Drug form: 06/16/2011 06/16/2011 Completed CAP, ONCE, Start date: 06/16/11 17:27:00, Stop date: 06/16/11 17:27:00 Humulin R 100 8 unit, 0.08 mL, Route: SUB-Q, Drug 06/15/2011 06/15/2011 Discontinued units/mL injectable form: SOLN, Sliding Scale, PRN solution Blood Glucose Results, Start date: 06/15/11 23:01:00, Duration: 30 day, Stop date: 07/16/11 0:00:00 Humulin R 100 6 unit, 0.06 mL, Route: SUB-Q, Drug 06/15/2011 06/15/2011 Discontinued units/mL injectable form: SOLN, Sliding Scale, PRN solution Blood Glucose Results, Start date: 06/15/11 23:01:00, Duration: 30 day, Stop date: 07/16/11 0:00:00 Humulin R 100 4 unit, 0.04 mL, Route: SUB-Q, Drug 06/15/2011 06/15/2011 Discontinued units/mL injectable form: SOLN, Sliding Scale, PRN solution Blood Glucose Results, Start date: 06/15/11 23:01:00, Duration: 30 day, Stop date: 07/16/11 0:00:00 Humulin R 100 2 unit, 0.02 mL, Route: SUB-Q, Drug 06/15/2011 06/15/2011 Discontinued units/mL injectable form: SOLN, Sliding Scale, PRN solution Blood Glucose Results, Start date: 06/15/11 23:00:00, Duration: 30 day, Stop date: 07/15/11 23:59:00 Dextrose 50% in 25 gm, 50 mL, Route: IV, Drug Form: 06/15/2011 06/17/2011 Discontinued Water IV INJ, PRN, PRN Blood Glucose Results, Start date: 06/15/11 23:00:00, Duration: 30 day, Stop date: 07/15/11 23:59:00 Vimpat 300 mg, 3 tab, Route: PO, Drug 06/17/2011 06/19/2011 Discontinued form: TAB, BID, Start date: 06/17/11 17:00:00, Duration: 30 day, Stop date: 07/17/11 9:00:00 magnesium sulfate 2 gm, 50 mL, Route: IVPB, Drug 06/18/2011 06/18/2011 Canceled form: INJ, Q2H, Total dose=6 gm, Start date: 06/18/11 18:00:00, Duration: 3 doses or times, Stop date: 06/18/11 22:00:00 Cerebyx 500 mg, 10 mL, Route: IVPB, ONCE, 06/15/2011 06/15/2011 Completed Start date: 06/15/11 23:00:00, Stop date: 06/15/11 23:00:00 Phenergan 25 mg, 1 mL, Route: IVPB, Drug 06/17/2011 06/17/2011 Deleted form: INJ, ONCE, Start date: 06/17/11 18:45:00, Stop date: 06/17/11 18:45:00 Ativan 2 mg, 1 mL, Route: IV, Drug form: 06/15/2011 06/15/2011 Completed INJ, ONCE, Start date: 06/15/11 21:10:00, Stop date: 06/15/11 21:10:00 Antivert 25 mg, 1 tab, Route: PO, Drug form: 06/16/2011 06/16/2011 Discontinued TAB, TID, Start date: 06/16/11 9:00:00, Duration: 30 day, Stop date: 07/15/11 17:00:00 Vital Signs Most recent to oldest [Reference Range]: 1 2 3 Height 165.10 cm (06/15/2011 18:47:00) Temperature Oral [96.4-99.1 DegF] 98.5 DegF (06/19/2011 09:00:00) 97.9 DegF (06/18/2011 20:15:00) 97.0 DegF (06/18/2011 07:20:00) Systolic Blood Pressure [90-140 mmHg] 121 mmHg (06/19/2011 09:00:00) 108 mmHg (06/18/2011 20:15:00) 118 mmHg (06/18/2011 07:20:00) Diastolic Blood Pressure [60-90 mmHg] 78 mmHg (06/19/2011 09:00:00) 73 mmHg (06/18/2011 20:15:00) 74 mmHg (06/18/2011 07:20:00) Respiratory Rate [14-20 BRMIN] 20 BRMIN (06/18/2011 20:15:00) 18 BRMIN (06/18/2011 07:20:00) 20 BRMIN (06/17/2011 20:20:00) Peripheral Pulse Rate [60-100 bpm] 81 bpm (06/19/2011 09:00:00) 99 bpm (06/18/2011 20:15:00) 69 bpm (06/18/2011 07:20:00) Weight 72.727 kg (06/15/2011 18:47:00) Results BEDSIDE GLUCOSE TESTING Most recent to oldest [Reference Range]: 1 2 3 Gluc POC Lifscn [65-110 mg/dL] 268 mg/dL 1 *HI* (06/19/2011 09:15:00) 198 mg/dL 2 *HI* (06/18/2011 20:28:00) 245 mg/dL 3 *HI* (06/18/2011 17:42:00) Comment1 Notify RN/MD *NA* (06/18/2011 20:28:00) Notify RN/MD *NA* (06/18/2011 17:42:00) Notify RN/MD *NA* (06/17/2011 20:48:00) Comment2 Verify w/Lab *NA* (06/15/2011 22:39:00) 1Interpretive Data: Upper Reportable Limit: 200 mg/dL. 2Interpretive Data: Upper Reportable Limit: 200 mg/dL. 3Interpretive Data: Upper Reportable Limit: 200 mg/dL. URINALYSIS Most recent to oldest [Reference Range]: 1 2 3 UA Turbidity [Clear] Clear (06/17/2011 12:18:00) UA Color [Yellow] Light Yellow *NA* (06/17/2011 12:18:00) UA pH [5.0-8.0] 7.0 (06/17/2011 12:18:00) UA Spec Grav [<=1.030] 1.015 (06/17/2011 12:18:00) UA Glucose [Negative mg/dL] >=1000 mg/dL *ABN* (06/17/2011 12:18:00) UA Blood [Negative] Negative (06/17/2011 12:18:00) UA Ketones [Negative mg/dL] Negative mg/dL *NA* (06/17/2011 12:18:00) UA Protein [Negative mg/dL] Negative mg/dL (06/17/2011 12:18:00) UA Urobilinogen [0.1-1.0 mg/dL] <=1.0 mg/dL *NA* (06/17/2011 12:18:00) UA Bili [Negative] Negative *NA* (06/17/2011 12:18:00) UA Leuk Est [Negative] Negative (06/17/2011 12:18:00) UA Nitrite [Negative] Negative (06/17/2011 12:18:00) UA WBC [0-5 /HPF] 1 /HPF (06/17/2011 12:18:00) UA RBC [0-2 /HPF] <1 /HPF (06/17/2011 12:18:00) UA Sq Epi [Few /LPF] Moderate /LPF *ABN* (06/17/2011 12:18:00) UA Mucus [None Seen /LPF] Few /LPF *NA* (06/17/2011 12:18:00) Micro? Not Indicated *NA* (06/17/2011 12:18:00) CHEMISTRY Most recent to oldest [Reference Range]: 1 2 3 Sodium Lvl [135-145 mEq/L] 140 mEq/L (06/19/2011 08:52:00) 145 mEq/L (06/18/2011 06:08:00) 135 mEq/L (06/15/2011 20:56:00) Potassium Lvl [3.5-5.1 mEq/L] 4.2 mEq/L (06/19/2011 08:52:00) 3.6 mEq/L (06/18/2011 06:08:00) 4.2 mEq/L (06/15/2011 20:56:00) Chloride Lvl [95-109 mEq/L] 107 mEq/L (06/19/2011 08:52:00) 110 mEq/L *HI* (06/18/2011 06:08:00) 97 mEq/L (06/15/2011 20:56:00) CO2 [24-32 mEq/L] 17 mEq/L *LOW* (06/19/2011 08:52:00) 25 mEq/L (06/18/2011 06:08:00) 25 mEq/L (06/15/2011 20:56:00) AGAP [10.0-20.0 mEq/L] 20.2 mEq/L *HI* (06/19/2011 08:52:00) 13.6 mEq/L (06/18/2011 06:08:00) 17.2 mEq/L (06/15/2011 20:56:00) Creatinine Lvl [0.5-1.4 mg/dL] 0.8 mg/dL (06/19/2011 08:52:00) 0.6 mg/dL (06/18/2011 06:08:00) 1.1 mg/dL (06/15/2011 20:56:00) BUN [7-22 mg/dL] 7 mg/dL (06/19/2011 08:52:00) 7 mg/dL (06/18/2011 06:08:00) 8 mg/dL (06/15/2011 20:56:00) Glucose Lvl 259 mg/dL 4 *NA* (06/19/2011 08:52:00) 246 mg/dL 5 *NA* (06/18/2011 06:08:00) 575 mg/dL 6, 7 *CRIT* (06/15/2011 20:56:00) Total Protein [6.4-8.4 g/dL] 7.2 g/dL (06/15/2011 20:56:00) Albumin Lvl [3.5-5.0 g/dL] 4.3 g/dL (06/15/2011 20:56:00) Globulin [2.0-4.0 g/dL] 2.9 g/dL (06/15/2011 20:56:00) A/G Ratio [0.7-1.6] 1.5 (06/15/2011 20:56:00) Calcium Lvl [8.5-10.5 mg/dL] 8.6 mg/dL (06/19/2011 08:52:00) 8.9 mg/dL (06/18/2011 06:08:00) 8.8 mg/dL (06/15/2011 20:56:00) Phosphorus [2.5-4.5 mg/dL] 3.9 mg/dL (06/19/2011 08:52:00) 3.7 mg/dL (06/18/2011 06:08:00) Magnesium Lvl [1.8-2.4 mg/dL] 1.6 mg/dL *LOW* (06/19/2011 08:52:00) 1.6 mg/dL *LOW* (06/19/2011 01:34:00) 1.2 mg/dL *LOW* (06/18/2011 06:08:00) ALT [0-65 U/L] 24 U/L (06/15/2011 20:56:00) AST [0-37 U/L] 13 U/L (06/15/2011 20:56:00) Alk Phos [39-136 U/L] 125 U/L (06/15/2011 20:56:00) Bili Total [0.2-1.3 mg/dL] 0.3 mg/dL (06/15/2011 20:56:00) Bili Direct [0.0-0.3 mg/dL] 0.1 mg/dL (06/15/2011 20:56:00) Bili Indirect [0.0-1.0 mg/dL] 0.2 mg/dL (06/15/2011 20:56:00) Hgb A1C 8.9 % 8 *NA* (06/18/2011 06:08:00) Phenytoin Total [10.0-20.0 ug/ml] 19.8 ug/ml (06/17/2011 07:43:00) 10.3 ug/ml (06/15/2011 20:56:00) Phenytoin Free [1.00-2.00 ug/ml] 1.63 ug/ml (06/17/2011 07:43:00) 0.61 ug/ml *LOW* (06/15/2011 23:11:00) U Preg [Negative] Negative (06/16/2011 00:13:00) 4Interpretive Data: Reference Ranges : 0 - 7 days : 41 - 90 mg/dL7 days - 150 yrs : 70 - 99 mg/dL (fasting), based on the clinical recommendations of the [place] [employer]. 5Interpretive Data: Reference Ranges : 0 - 7 days : 41 - 90 mg/dL7 days - 150 yrs : 70 - 99 mg/dL (fasting), based on the clinical recommendations of the [place] [employer]. 6Result Comment: Critical Result(s) called to Madhavi Campos at 06/15/2011 22:03_ by_tvs. Read back OK. 7Interpretive Data: Reference Ranges : 0 - 7 days : 41 - 90 mg/dL7 days - 150 yrs : 70 - 99 mg/dL (fasting), based on the clinical recommendations of the [place] [employer]. 8Interpretive Data: HbA1C% eAG(mg/dL) Interpretation 6.0 126 Very good control 6.5 140 Very good control 7.0 154 Good Control 7.5 169 Good Control 8.0 183 Marginal Control, take action to lower 8.5 197 Marginal Control, take action to lower 9.0 212 Poor Control, take action to lower 9.5 226 Poor Control, take action to lower10.0 240 Poor Control, take action to lower HEMATOLOGY Most recent to oldest [Reference Range]: 1 2 3 WBC [3.7-10.4 K/CMM] 3.1 K/CMM *LOW* (06/17/2011 12:18:00) 4.2 K/CMM (06/15/2011 20:56:00) RBC [4.20-5.40 M/CMM] 3.18 M/CMM *LOW* (06/17/2011 12:18:00) 3.55 M/CMM *LOW* (06/15/2011 20:56:00) Hgb [12.0-16.0 g/dL] 9.2 g/dL *LOW* (06/17/2011 12:18:00) 10.6 g/dL *LOW* (06/15/2011 20:56:00) Hct [36.0-48.0 %] 26.4 % *LOW* (06/17/2011 12:18:00) 30.0 % *LOW* (06/15/2011 20:56:00) MCV [81.0-99.0 fL] 83.0 fL (06/17/2011 12:18:00) 84.4 fL (06/15/2011 20:56:00) MCH [27.0-31.0 pg] 28.9 pg (06/17/2011 12:18:00) 29.9 pg (06/15/2011 20:56:00) MCHC [32.0-36.0 g/dL] 34.9 g/dL (06/17/2011 12:18:00) 35.4 g/dL (06/15/2011 20:56:00) RDW [11.5-14.5 %] 13.9 % (06/17/2011 12:18:00) 14.3 % (06/15/2011 20:56:00) Platelet [133-450 K/CMM] 165 K/CMM (06/17/2011 12:18:00) 197 K/CMM (06/15/2011 20:56:00) MPV [7.4-10.4 fL] 7.8 fL (06/17/2011 12:18:00) 8.6 fL (06/15/2011 20:56:00) Segs [45.0-75.0 %] 67.5 % (06/15/2011 20:56:00) Lymphocytes [20.0-40.0 %] 27.1 % (06/15/2011 20:56:00) Monocytes [2.0-12.0 %] 5.2 % (06/15/2011 20:56:00) Eosinophils [0.0-4.0 %] 0.0 % (06/15/2011 20:56:00) Basophils [0.0-1.0 %] 0.2 % (06/15/2011 20:56:00) Segs-Bands # [1.5-8.1 K/CMM] 2.8 K/CMM (06/15/2011 20:56:00) Lymphocytes # [1.0-5.5 K/CMM] 1.1 K/CMM (06/15/2011 20:56:00) Monocytes # [0.0-0.8 K/CMM] 0.2 K/CMM (06/15/2011 20:56:00) Eosinophils # [0.0-0.5 K/CMM] 0.0 K/CMM (06/15/2011 20:56:00) Basophils # [0.0-0.2 K/CMM] 0.0 K/CMM (06/15/2011 20:56:00) PT [12.0-14.7 seconds] 13.4 seconds (06/15/2011 20:56:00) INR [0.85-1.17] 1.02 9 (06/15/2011 20:56:00) PTT [22.9-35.8 seconds] 24.7 seconds 10 (06/15/2011 20:56:00) 9Interpretive Data: RECOMMENDED RANGES FOR PROTIME INR: 2.0-3.0 for most medical and surgical thromboembolic states. 2.5-3.5 for artificial heart valves and recurrent embolism.INR SHOULD BE USED ONLY FOR PATIENTS ON STABLE ANTICOAGULANT THERAPY. 10Interpretive Data: Heparin Therapeutic Range: 57 - 92 Seconds Microbiology Reports PROCEDURE:Culture: Urine STATUS: Auth (Verified) BODY SITE: COLLECTED DATE/TIME: 06/17/2011 12:18:00 SOURCE: Urine, Clean Catch FREE TEXT SOURCE: BLUE TOP TUBE FINAL REPORTS Final Report <10,000/Ml Yeast PRELIMINARY REPORTS Preliminary Report No Growth After Overnight Incubation
--- OUTSIDE RECORDS SUMMARY | 2018-07-18 08:42 | XMS REPORT | CCD ---
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 Name Role Phone Helder Farias CP [place] CP Allergies, Adverse Reactions, Alerts Substance Reaction Status morphine Active Problem List Condition Effective Dates Status Hyperglycemia Active Pain < 11/30/2011 Inactive Seizure precautions Active Medications Medication Instructions Start Date End Date Status midodrine 5 mg, 1 tab, Route: PO, Drug form: 03/22/2012 03/24/2012 Discontinued TAB, TID, Dosing Weight 77.273, kg, Start date: 03/22/12 9:00:00, Duration: 30 day, Stop date: 04/20/12 17:00:00 meclizine 25 mg, 1 tab, Route: PO, Drug form: 03/22/2012 03/24/2012 Discontinued TAB, TID, Dosing Weight 77.273, kg, PRN as needed for dizziness, Start date: 03/22/12 6:20:00, Duration: 30 day, Stop date: 04/21/12 6:19:00 Lantus 30 unit, 0.3 mL, Route: SUB-Q, Drug 03/22/2012 03/24/2012 Discontinued form: INJ, Daily, Dosing Weight 77.273, kg, Start date: 03/22/12 9:00:00, Duration: 30 day, Stop date: 04/20/12 9:00:00 fludrocortisone 0.1 mg, 1 tab, Route: PO, Drug 03/22/2012 03/24/2012 Discontinued form: TAB, BID, Dosing Weight 77.273, kg, Start date: 03/22/12 9:00:00, Duration: 30 day, Stop date: 04/20/12 17:00:00 docusate sodium 100 100 mg, 1 cap, PO, BID, 20 cap, 03/24/2012 04/03/2012 Ordered mg oral capsule Substitution Allowed, CAP fludrocortisone 0.1 0.1 mg, 1 tab, PO, BID, 03/22/2012 Ordered mg oral tablet Substitution Allowed midodrine 5 mg oral 5 mg, 1 tab, PO, TID, Substitution 03/22/2012 Ordered tablet Allowed insulin aspart 5 unit, 0.05 mL, Route: SUB-Q, Drug 03/24/2012 03/24/2012 Discontinued form: SOLN, Before Lunch, Dosing Weight 77.273, kg, Start date: 03/24/12 11:30:00, Duration: 30 day, Stop date: 04/22/12 11:30:00 insulin aspart 5 unit, 0.05 mL, Route: SUB-Q, Drug 03/24/2012 03/24/2012 Discontinued form: SOLN, Before Dinner, Dosing Weight 77.273, kg, Start date: 03/24/12 16:30:00, Duration: 30 day, Stop date: 04/22/12 16:30:00 insulin aspart 5 unit, 0.05 mL, Route: SUB-Q, Drug 03/24/2012 03/24/2012 Discontinued form: SOLN, Before Breakfast, Dosing Weight 77.273, kg, Start date: 03/24/12 7:30:00, Duration: 30 day, Stop date: 04/22/12 7:30:00 Insulin regular 10 unit, 0.1 mL, Route: IM, Drug 03/22/2012 03/22/2012 Completed form: SOLN, ONCE, Dosing Weight 77.273, kg, Priority: STAT, Start date: 03/22/12 4:08:00, Stop date: 03/22/12 4:08:00 Lantus 30 units, SUB-Q, Daily, 03/22/2012 03/24/2012 Discontinued Substitution Allowed Zofran 8 mg, Route: IVP, Drug form: INJ, 03/22/2012 03/22/2012 Completed ONCE, Dosing Weight 77.273, kg, Priority: STAT, Start date: 03/22/12 3:39:00, Stop date: 03/22/12 3:39:00 senna 8.6 mg oral 17.2 mg, 2 tab, PO, Daily, 20 tab, 03/24/2012 04/03/2012 Ordered tablet Substitution Allowed, Maintenance, TAB phenytoin 100 mg 300 mg, 3 cap, PO, Daily, 90 cap, 03/24/2012 04/23/2012 Ordered oral capsule, Substitution Allowed, ERCAP extended release Synthroid 100 mcg 100 microgram, 1 tab, PO, Q630AM, 03/24/2012 04/23/2012 Ordered (0.1 mg) oral tablet 30 tab, Substitution Allowed, TAB senna 17.2 mg, 2 tab, Route: PO, Drug 03/24/2012 03/24/2012 Discontinued Form: TAB, Dosing Weight 77.273, kg, Daily, Start date: 03/24/12 9:00:00, Duration: 30 day, Stop date: 04/22/12 9:00:00 Vimpat 100 mg oral 300 mg, 3 tab, PO, BID, 180 tab, 03/24/2012 04/23/2012 Ordered tablet Substitution Allowed, TAB ferrous sulfate 325 mg, 1 tab, Route: PO, Drug 03/24/2012 03/24/2012 Discontinued form: ECTAB, TID, Dosing Weight 77.273, kg, Start date: 03/24/12 9:00:00, Duration: 30 day, Stop date: 04/22/12 17:00:00 Macrodantin 100 mg, 1 cap, Route: PO, Drug 03/23/2012 03/24/2012 Discontinued form: CAP, [id number], Start date: 03/23/12 20:00:00, Duration: 30 day, Stop date: 04/22/12 8:00:00 Sodium Chloride 0.9% 1,000 mL, Rate: 1,000 ml/hr, Infuse 03/22/2012 03/22/2012 Completed (Bolus) IV 1,000 mL over: 1 hr, Route: IV, kg, Total Volume: 1,000, Bolus Dose, Priority: STAT, Start date: 03/22/12 4:04:00, Duration: 1 doses or times, Stop date: 03/22/12 5:03:00 Cipro 500 mg, 1 tab, Route: PO, Drug 03/22/2012 03/23/2012 Voided With form: TAB, Q12H, Dosing Weight Results 77.273, kg, Start date: 03/22/12 9:00:00, Duration: 30 day, Stop date: 04/20/12 21:00:00 Insulin regular 10 unit, 0.1 mL, Route: IVP, Drug 03/22/2012 03/22/2012 Discontinued form: SOLN, ONCE, Dosing Weight 77.273, kg, Priority: STAT, Start date: 03/22/12 4:04:00, Stop date: 03/22/12 4:04:00 potassium chloride 20 mEq, 15 mL, Route: PO, Drug 03/22/2012 03/22/2012 Discontinued 20 mEq/15 mL oral form: LIQ, ONCE, Dosing Weight liquid 77.273, kg, Priority: STAT, Start date: 03/22/12 4:03:00, Stop date: 03/22/12 4:03:00 potassium chloride 20 mEq, 15 mL, Route: PO, Drug 03/22/2012 03/22/2012 Discontinued 20 mEq/15 mL oral form: LIQ, ONCE, Dosing Weight liquid 77.273, kg, Priority: STAT, Start date: 03/22/12 4:03:00, Stop date: 03/22/12 4:03:00 Cipro 400 mg, 200 mL, Route: IVPB, Drug 03/22/2012 03/22/2012 Completed form: INJ, ONCE, Dosing Weight 77.273, kg, Priority: STAT, Start date: 03/22/12 4:02:00, Stop date: 03/22/12 4:02:00 Ativan 2 mg, 1 mL, Route: IVP, Drug form: 03/22/2012 03/22/2012 Completed INJ, ONCE, Dosing Weight 77.273, kg, Priority: STAT, Start date: 03/22/12 18:28:00, Stop date: 03/22/12 18:28:00 Dextrose 50% Syringe 12.5 gm, 25 mL, Route: IVP, Drug 03/22/2012 03/24/2012 Discontinued Form: INJ, Dosing Weight 77.273, kg, PRN, PRN Blood Glucose Results, Start date: 03/22/12 7:00:00, Duration: 30 day, Stop date: 04/21/12 6:59:00 Dextrose 50% Syringe 25 gm, 50 mL, Route: IVP, Drug 03/22/2012 03/24/2012 Discontinued Form: INJ, Dosing Weight 77.273, kg, PRN, PRN Blood Glucose Results, Start date: 03/22/12 7:00:00, Duration: 30 day, Stop date: 04/21/12 6:59:00 insulin aspart 4 unit, 0.04 mL, Route: SUB-Q, Drug 03/22/2012 03/24/2012 Discontinued form: SOLN, TID-Before Meals, Dosing Weight 77.273, kg, PRN Blood Glucose Results, Start date: 03/22/12 7:00:00, Duration: 30 day, Stop date: 04/21/12 6:59:00 insulin aspart 2 unit, 0.02 mL, Route: SUB-Q, Drug 03/22/2012 03/24/2012 Discontinued form: SOLN, TID-Before Meals, Dosing Weight 77.273, kg, PRN Blood Glucose Results, Start date: 03/22/12 7:00:00, Duration: 30 day, Stop date: 04/21/12 6:59:00 insulin aspart 4 unit, 0.04 mL, Route: SUB-Q, Drug 03/22/2012 03/24/2012 Discontinued form: SOLN, Bedtime, Dosing Weight 77.273, kg, PRN Blood Glucose Results, Start date: 03/22/12 7:00:00, Duration: 30 day, Stop date: 04/21/12 6:59:00 insulin aspart 3 unit, 0.03 mL, Route: SUB-Q, Drug 03/22/2012 03/24/2012 Discontinued form: SOLN, Bedtime, Dosing Weight 77.273, kg, PRN Blood Glucose Results, Start date: 03/22/12 7:00:00, Duration: 30 day, Stop date: 04/21/12 6:59:00 glucagon 1 mg, Route: IM, Drug form: 03/22/2012 03/24/2012 Discontinued PDR/INJ, PRN, Dosing Weight 77.273, kg, PRN Blood Glucose Results, Start date: 03/22/12 7:00:00, Duration: 30 day, Stop date: 04/21/12 6:59:00 insulin aspart 1 unit, 0.01 mL, Route: SUB-Q, Drug 03/22/2012 03/24/2012 Discontinued form: SOLN, Bedtime, Dosing Weight 77.273, kg, PRN Blood Glucose Results, Start date: 03/22/12 7:00:00, Duration: 30 day, Stop date: 04/21/12 6:59:00 insulin aspart 2 unit, 0.02 mL, Route: SUB-Q, Drug 03/22/2012 03/24/2012 Discontinued form: SOLN, Bedtime, Dosing Weight 77.273, kg, PRN Blood Glucose Results, Start date: 03/22/12 7:00:00, Duration: 30 day, Stop date: 04/21/12 6:59:00 insulin aspart 10 unit, 0.1 mL, Route: SUB-Q, Drug 03/22/2012 03/24/2012 Discontinued form: SOLN, TID-Before Meals, Dosing Weight 77.273, kg, PRN Blood Glucose Results, Start date: 03/22/12 7:00:00, Duration: 30 day, Stop date: 04/21/12 6:59:00 insulin aspart 8 unit, 0.08 mL, Route: SUB-Q, Drug 03/22/2012 03/24/2012 Discontinued form: SOLN, TID-Before Meals, Dosing Weight 77.273, kg, PRN Blood Glucose Results, Start date: 03/22/12 7:00:00, Duration: 30 day, Stop date: 04/21/12 6:59:00 insulin aspart 6 unit, 0.06 mL, Route: SUB-Q, Drug 03/22/2012 03/24/2012 Discontinued form: SOLN, TID-Before Meals, Dosing Weight 77.273, kg, PRN Blood Glucose Results, Start date: 03/22/12 7:00:00, Duration: 30 day, Stop date: 04/21/12 6:59:00 fosphenytoin + 500 mg, 10 mL, Route: IVPB, ONCE, 03/23/2012 03/23/2012 Completed Sodium Chloride 0.9% Dosing Weight 77.273, kg, Start IV 50 mL date: 03/23/12 8:54:00, Stop date: 03/23/12 8:54:00 phenytoin 300 mg, 3 cap, Route: PO, Drug 03/22/2012 03/24/2012 Discontinued form: ERCAP, Daily, Dosing Weight 77.273, kg, Start date: 03/22/12 9:00:00, Stop date: 04/20/12 9:00:00 Vimpat 300 mg, 3 tab, Route: PO, Drug 03/22/2012 03/24/2012 Discontinued form: TAB, BID, Dosing Weight 77.273, kg, Start date: 03/22/12 9:00:00, Stop date: 04/20/12 17:00:00 insulin aspart 100 5 unit, SUB-Q, TID-Before Meals, 10 03/24/2012 04/23/2012 Ordered units/mL mL, Substitution Allowed, SOLN subcutaneous solution pneumococcal 0.5 ml, Route: IM, Drug Form: INJ, 07/22/2011 07/23/2011 Completed 23-valent vaccine Start date: 07/22/11 9:00:00, Stop date: 07/22/11 9:00:00 ferrous sulfate 325 325 mg, 1 tab, PO, TID, 90 tab, 03/24/2012 04/23/2012 Ordered mg oral enteric Substitution Allowed, ECTAB coated tablet Cymbalta 30 mg oral 60 mg, 2 cap, PO, Daily, 60 cap, 03/24/2012 04/23/2012 Ordered delayed release Substitution Allowed, DRC capsule amitriptyline 25 mg 25 mg, 1 tab, PO, BID, 60 tab, 03/24/2012 04/23/2012 Ordered oral tablet Substitution Allowed, TAB heparin 5,000 unit, 1 mL, Route: SUB-Q, 03/22/2012 03/24/2012 Discontinued Drug form: INJ, Q12H, Dosing Weight 77.273, kg, Start date: 03/22/12 9:00:00, Duration: 30 day, Stop date: 04/20/12 21:00:00 acetaminophen-hydroc 1 tab, PO, Q4H, PRN, 30 tab, Pain 03/24/2012 03/29/2012 Ordered odone 325 mg-5 mg Score 1-3, Substitution Allowed, oral tablet Maintenance, TAB fosphenytoin + 500 mg, 10 mL, Route: IVPB, ONCE, 03/22/2012 03/22/2012 Completed Sodium Chloride 0.9% Dosing Weight 77.273, kg, Priority: IV 50 mL STAT, Start date: 03/22/12 4:53:00, Stop date: 03/22/12 4:53:00 Synthroid 100 microgram, 1 tab, Route: PO, 03/23/2012 03/24/2012 Discontinued Drug form: TAB, Q630AM, Dosing Weight 77.273, kg, Start date: 03/23/12 6:30:00, Duration: 30 day, Stop date: 04/21/12 6:30:00 amitriptyline 25 mg, 1 tab, Route: PO, Drug form: 03/22/2012 03/24/2012 Discontinued TAB, BID, Dosing Weight 77.273, kg, Start date: 03/22/12 17:00:00, Duration: 30 day, Stop date: 04/21/12 9:00:00 ALPRAZOLam 0.25 mg, 1 tab, Route: PO, Drug 03/22/2012 03/22/2012 Discontinued form: TAB, Q8H, Dosing Weight 77.273, kg, PRN Anxiety, Start date: 03/22/12 5:43:00, Duration: 30 day, Stop date: 04/21/12 5:42:00 docusate 100 mg, 1 cap, Route: PO, Drug 03/22/2012 03/24/2012 Discontinued form: CAP, BID, Dosing Weight 77.273, kg, Start date: 03/22/12 9:00:00, Duration: 30 day, Stop date: 04/20/12 17:00:00 ondansetron 4 mg, 2 mL, Route: IVP, Drug form: 03/22/2012 03/24/2012 Discontinued INJ, Q6H, Dosing Weight 77.273, kg, PRN Nausea & Vomiting, Start date: 03/22/12 5:43:00, Duration: 30 day, Stop date: 04/21/12 5:42:00 acetaminophen-hydroc 1 tab, Route: PO, Drug Form: TAB, 03/22/2012 03/24/2012 Discontinued odone 325 mg-5 mg Dosing Weight 77.273, kg, Q4H, PRN oral tablet Pain Score 1-3, Start date: 03/22/12 5:45:00, Duration: 30 day, Stop date: 04/21/12 5:44:00 acetaminophen 650 mg, 2 tab, Route: PO, Drug 03/22/2012 03/24/2012 Discontinued form: TAB, Q4H, Dosing Weight 77.273, kg, PRN Pain/Fever, Start date: 03/22/12 5:43:00, Duration: 30 day, Stop date: 04/21/12 5:42:00 Maalox 30 mL, Route: PO, Drug Form: SUSP, 03/22/2012 03/24/2012 Discontinued Dosing Weight 77.273, kg, Q4H, PRN Indigestion, Start date: 03/22/12 5:45:00, Duration: 30 day, Stop date: 04/21/12 5:44:00 Milk of Magnesia 30 ml, Route: PO, Drug Form: SUSP, 03/22/2012 03/23/2012 Completed Dosing Weight 77.273, kg, Q3H, PRN Constipation, Start date: 03/22/12 5:45:00, Duration: 2 doses or times, Stop date: 03/23/12 0:00:00 bisacodyl 10 mg, 1 supp, Route: DC, Drug 03/22/2012 03/24/2012 Discontinued form: SUPP, Daily, Dosing Weight 77.273, kg, PRN Constipation, Start date: 03/22/12 5:45:00, Duration: 30 day, Stop date: 04/21/12 5:44:00 Ativan 2 mg, 1 mL, Route: IV, Drug form: 03/22/2012 03/24/2012 Discontinued INJ, ONCALL, Start date: 03/22/12 19:00:00, Duration: 1 doses or times, Stop date: 03/23/12 19:00:00 nitrofurantoin 100 mg, 1 cap, PO, BID, 10 cap, 03/24/2012 03/29/2012 Ordered macrocrystals 100 mg Substitution Allowed, CAP oral capsule Sodium Chloride 0.9% 1,000 mL, Rate: 1,000 ml/hr, Infuse 03/22/2012 03/22/2012 Completed (Bolus) IV 1000 mL over: 1 hr, Route: IV, kg, Total Volume: 1,000, Bolus Dose, Priority: STAT, Start date: 03/22/12 3:24:00, Duration: 1 doses or times, Stop date: 03/22/12 4:23:00 Ativan 2 mg, 1 mL, Route: IVPB, Drug form: 03/22/2012 03/22/2012 Deleted INJ, ONCE, Dosing Weight 77.273, kg, Priority: STAT, Start date: 03/22/12 18:09:00, Stop date: 03/22/12 18:09:00 Toradol 15 mg/mL 15 mg, 1 mL, Route: IV, Drug form: 03/22/2012 03/24/2012 Discontinued injectable solution INJ, Q6H, Dosing Weight 77.273, kg, PRN Pain, Start date: 03/22/12 10:52:00, Duration: 4 day, Stop date: 03/26/12 10:51:00 diazepam 2 mg, 1 tab, Route: PO, Drug form: 03/22/2012 03/24/2012 Discontinued TAB, TID, Dosing Weight 77.273, kg, PRN as needed for anxiety, Start date: 03/22/12 6:25:00, Duration: 30 day, Stop date: 04/21/12 6:24:00 Lantus 100 units/mL 30 units, SUB-Q, Daily, 10 mL, 03/24/2012 04/23/2012 Ordered subcutaneous Substitution Allowed, SOLN solution Cymbalta 60 mg, 2 cap, Route: PO, Drug form: 03/22/2012 03/24/2012 Discontinued DRC, Daily, Dosing Weight 77.273, kg, Start date: 03/22/12 9:00:00, Duration: 30 day, Stop date: 04/20/12 9:00:00 magnesium oxide 800 mg, 2 tab, Route: PO, Drug 03/23/2012 03/23/2012 Completed form: TAB, ONCE, Dosing Weight 77.273, kg, Start date: 03/23/12 7:33:00, Stop date: 03/23/12 7:33:00 zonisamide 300 mg, 3 cap, Route: PO, Drug 03/22/2012 03/24/2012 Discontinued form: CAP, Daily, Dosing Weight 77.273, kg, Start date: 03/22/12 9:00:00, Duration: 30 day, Stop date: 04/20/12 9:00:00 Immunizations Vaccine Date Status pneumococcal 23-valent vaccine 07/23/2011 Auth (Verified) Vital Signs Most recent to oldest [Reference Range]: 1 2 3 Height 165.10 cm (03/22/2012 00:55:00) Temperature Oral [96.4-99.1 DegF] 98.8 DegF (03/24/2012 15:28:00) 97.3 DegF (03/24/2012 12:20:00) 99.0 DegF (03/24/2012 08:08:00) Systolic Blood Pressure [90-140 mmHg] 121 mmHg (03/24/2012 15:28:00) 122 mmHg (03/24/2012 12:20:00) 107 mmHg (03/24/2012 08:08:00) Diastolic Blood Pressure [60-90 mmHg] 85 mmHg (03/24/2012 15:28:00) 87 mmHg (03/24/2012 12:20:00) 76 mmHg (03/24/2012 08:08:00) Respiratory Rate [14-20 BRMIN] 18 BRMIN (03/24/2012 15:28:00) 18 BRMIN (03/24/2012 12:20:00) 18 BRMIN (03/24/2012 08:08:00) Peripheral Pulse Rate [60-100 bpm] 96 bpm (03/24/2012 15:28:00) 96 bpm (03/24/2012 12:20:00) 91 bpm (03/24/2012 08:08:00) Weight 77.273 kg (03/22/2012 00:55:00) Results BEDSIDE GLUCOSE TESTING Most recent to oldest [Reference Range]: 1 2 3 Gluc POC Lifscn [70-99 mg/dL] 149 mg/dL 1 *HI* (03/24/2012 16:52:00) 370 mg/dL 2 *HI* (03/24/2012 11:12:00) 280 mg/dL 3 *HI* (03/24/2012 05:58:00) Comment1 Notify RN/MD *NA* (03/24/2012 16:52:00) Notify RN/MD *NA* (03/24/2012 11:12:00) Notify RN/MD *NA* (03/23/2012 21:06:00) 1Interpretive Data: Upper Reportable Limit: 200 mg/dL. 2Interpretive Data: Upper Reportable Limit: 200 mg/dL. 3Interpretive Data: Upper Reportable Limit: 200 mg/dL. URINALYSIS Most recent to oldest [Reference Range]: 1 2 3 UA Turbidity [Clear] Slight Cloudy (03/22/2012 03:30:00) Clear (03/22/2012 01:12:00) UA Color [Yellow] Yellow *NA* (03/22/2012 03:30:00) Light Yellow (03/22/2012 01:12:00) UA pH [5.0-8.0] 6.0 (03/22/2012 03:30:00) 6.0 (03/22/2012 01:12:00) UA Spec Grav [<=1.030] 1.031 *HI* (03/22/2012 03:30:00) 1.005 *NA* (03/22/2012 01:12:00) UA Glucose [Negative mg/dL] >=1000 mg/dL *ABN* (03/22/2012 03:30:00) >=1000 mg/dL *ABN* (03/22/2012 01:12:00) UA Blood [Negative] Trace *ABN* (03/22/2012 03:30:00) Negative (03/22/2012 01:12:00) UA Ketones [Negative] Negative *NA* (03/22/2012 03:30:00) Negative *NA* (03/22/2012 01:12:00) UA Protein [Negative] Negative (03/22/2012 03:30:00) Negative (03/22/2012 01:12:00) UA Urobilinogen [0.1-1.0 EU/dL] 0.2 EU/dL (03/22/2012 03:30:00) 0.2 EU/dL (03/22/2012 01:12:00) UA Bili [Negative] Negative *NA* (03/22/2012 03:30:00) Negative *NA* (03/22/2012 01:12:00) UA Leuk Est [Negative] Small *ABN* (03/22/2012 03:30:00) Trace *ABN* (03/22/2012 01:12:00) UA Nitrite [Negative] Negative (03/22/2012 03:30:00) Negative (03/22/2012 01:12:00) UA WBC [None Seen /HPF] 51-100 /HPF *ABN* (03/22/2012 03:30:00) 21-50 /HPF *ABN* (03/22/2012 01:12:00) UA RBC [0-2 /HPF] 3-5 /HPF *ABN* (03/22/2012 03:30:00) 0-2 /HPF (03/22/2012 01:12:00) UA Bacteria [None Seen /HPF] Occasional /HPF (03/22/2012 03:30:00) Occasional /HPF (03/22/2012 01:12:00) UA Sq Epi [Few /LPF] Occasional /LPF (03/22/2012 03:30:00) Few /LPF (03/22/2012 01:12:00) UA Mucus [None Seen] None Seen (03/22/2012 03:30:00) None Seen (03/22/2012 01:12:00) Micro? Performed (03/22/2012 01:12:00) CHEMISTRY Most recent to oldest [Reference Range]: 1 2 3 Sodium Lvl [135-145 mEq/L] 141 mEq/L (03/23/2012 06:50:00) 144 mEq/L (03/23/2012 02:44:00) 126 mEq/L *LOW* (03/22/2012 03:30:00) Potassium Lvl [3.5-5.1 mEq/L] 4.1 mEq/L (03/23/2012 06:50:00) 3.9 mEq/L (03/23/2012 02:44:00) 4.4 mEq/L (03/22/2012 03:30:00) Chloride Lvl [95-109 mEq/L] 105 mEq/L (03/23/2012 06:50:00) 106 mEq/L (03/23/2012 02:44:00) 91 mEq/L *LOW* (03/22/2012 03:30:00) CO2 [24-32 mEq/L] 26 mEq/L (03/23/2012 06:50:00) 25 mEq/L (03/23/2012 02:44:00) 26 mEq/L (03/22/2012 03:30:00) AGAP [10.0-20.0 mEq/L] 14.1 mEq/L (03/23/2012 06:50:00) 16.9 mEq/L (03/23/2012 02:44:00) 13.4 mEq/L (03/22/2012 03:30:00) Creatinine Lvl [0.5-1.4 mg/dL] 0.7 mg/dL (03/23/2012 06:50:00) 0.8 mg/dL (03/23/2012 02:44:00) 1.0 mg/dL (03/22/2012 03:30:00) eGFR 108 mL/min/1.73m2 4 *NA* (03/23/2012 06:50:00) 92 mL/min/1.73m2 5 *NA* (03/23/2012 02:44:00) 70 mL/min/1.73m2 6 *NA* (03/22/2012 03:30:00) BUN [7-22 mg/dL] 12 mg/dL (03/23/2012 06:50:00) 12 mg/dL (03/23/2012 02:44:00) 12 mg/dL (03/22/2012 03:30:00) B/C Ratio [6-25] 15 (03/23/2012 02:44:00) Glucose Lvl [70-99 mg/dL] 226 mg/dL 7 *HI* (03/23/2012 06:50:00) 75 mg/dL 8 (03/23/2012 02:44:00) 520 mg/dL 9, 10 *CRIT* (03/22/2012 03:30:00) Total Protein [6.4-8.4 g/dL] 6.7 g/dL (03/23/2012 02:44:00) Albumin Lvl [3.5-5.0 g/dL] 3.9 g/dL (03/23/2012 02:44:00) Globulin [2.0-4.0 g/dL] 2.8 g/dL (03/23/2012 02:44:00) A/G Ratio [0.7-1.6] 1.4 (03/23/2012 02:44:00) Calcium Lvl [8.5-10.5 mg/dL] 8.6 mg/dL (03/23/2012 06:50:00) 9.0 mg/dL (03/23/2012 02:44:00) 9.7 mg/dL (03/22/2012 03:30:00) Phosphorus [2.5-4.5 mg/dL] 4.3 mg/dL (03/23/2012 02:44:00) Magnesium Lvl [1.8-2.4 mg/dL] 1.7 mg/dL *LOW* (03/23/2012 02:44:00) ALT [0-65 unit/L] 141 unit/L *HI* (03/23/2012 02:44:00) AST [0-37 unit/L] 155 unit/L *HI* (03/23/2012 02:44:00) Alk Phos [39-136 unit/L] 170 unit/L *HI* (03/23/2012 02:44:00) Bili Total [0.2-1.3 mg/dL] 0.2 mg/dL (03/23/2012 02:44:00) Hgb A1C 11.5 % 11 *NA* (03/22/2012 11:05:00) Iron [30-160 ug/dl] 13 ug/dl *LOW* (03/24/2012 03:58:00) Ferritin Lvl [5-204 ng/mL] 5 ng/mL (03/24/2012 03:58:00) % [place] [12-57 %] 3 % *LOW* (03/24/2012 03:58:00) UIBC [110-370 ug/dl] 391 ug/dl *HI* (03/24/2012 03:58:00) TIBC [228-428 ug/dl] 404 ug/dl (03/24/2012 03:58:00) TSH [0.360-3.740 uIU/mL] 1.330 uIU/mL (03/23/2012 02:44:00) Phenytoin Total [10.0-20.0 ug/ml] 7.1 ug/ml *LOW* (03/23/2012 02:44:00) 4.2 ug/ml *LOW* (03/22/2012 03:30:00) Phenytoin Free [1.00-2.00 ug/ml] 0.77 ug/ml *LOW* (03/23/2012 02:44:00) 0.44 ug/ml *LOW* (03/22/2012 02:00:00) 4Result Comment: The eGFR is calculated using [...] be mul tiplied by the estimated BMI. 5Result Comment: The eGFR is calculated using [...] be mul tiplied by the estimated BMI. 6Result Comment: The eGFR is calculated using [...] be mul tiplied by the estimated BMI. 7Interpretive Data: Adult reference range values reflect the clinical guidelines of the [place] [employer]. 8Interpretive Data: Adult reference range values reflect the clinical guidelines of the [place] [employer]. 9Result Comment: Critical Result(s) called to _dr penaloza at _03/22/2012 04:00:09 PAPER COLORER by_lg. Read back OK. 10Interpretive Data: Adult reference range values reflect the clinical guidelines of the [place] [employer]. 11Interpretive Data: HbA1C% eAG(mg/dL) Interpretation 6.0 126 [...] Range]: 1 2 3 WBC [3.7-10.4 K/CMM] 3.5 K/CMM *LOW* (03/23/2012 06:50:00) 6.1 K/CMM (03/22/2012 03:30:00) RBC [4.20-5.40 M/CMM] 4.60 M/CMM (03/23/2012 06:50:00) 5.37 M/CMM (03/22/2012 03:30:00) Hgb [12.0-16.0 g/dL] 9.4 g/dL *LOW* (03/23/2012 06:50:00) 11.1 g/dL *LOW* (03/22/2012 03:30:00) Hct [36.0-48.0 %] 30.1 % *LOW* (03/23/2012 06:50:00) 35.7 % *LOW* (03/22/2012 03:30:00) MCV [81.0-99.0 fL] 65.5 fL *LOW* (03/23/2012 06:50:00) 66.5 fL *LOW* (03/22/2012 03:30:00) MCH [27.0-31.0 pg] 20.4 pg *LOW* (03/23/2012 06:50:00) 20.7 pg *LOW* (03/22/2012 03:30:00) MCHC [32.0-36.0 g/dL] 31.2 g/dL *LOW* (03/23/2012 06:50:00) 31.1 g/dL 12 *LOW* (03/22/2012 03:30:00) RDW [11.5-14.5 %] 18.0 % *HI* (03/23/2012 06:50:00) 16.1 % *HI* (03/22/2012 03:30:00) Platelet [133-450 K/CMM] 168 K/CMM (03/23/2012 06:50:00) 230 K/CMM (03/22/2012 03:30:00) MPV [7.4-10.4 fL] 9.4 fL (03/23/2012 06:50:00) 9.8 fL (03/22/2012 03:30:00) Segs [45.0-75.0 %] 54.5 % (03/23/2012 06:50:00) 66.4 % (03/22/2012 03:30:00) Lymphocytes [20.0-40.0 %] 38.5 % (03/23/2012 06:50:00) 24.4 % (03/22/2012 03:30:00) Monocytes [2.0-12.0 %] 6.6 % (03/23/2012 06:50:00) 6.2 % (03/22/2012 03:30:00) Eosinophils [0.0-4.0 %] 2.0 % (03/22/2012 03:30:00) Basophils [0.0-1.0 %] 0.4 % (03/23/2012 06:50:00) 1.0 % (03/22/2012 03:30:00) Segs-Bands # [1.5-8.1 K/CMM] 1.8 K/CMM (03/23/2012 06:50:00) 4.2 K/CMM (03/22/2012 03:30:00) Lymphocytes # [1.0-5.5 K/CMM] 1.3 K/CMM (03/23/2012 06:50:00) 1.5 K/CMM (03/22/2012 03:30:00) Monocytes # [0.0-0.8 K/CMM] 0.2 K/CMM (03/23/2012 06:50:00) 0.4 K/CMM (03/22/2012 03:30:00) Eosinophils # [0.0-0.5 K/CMM] 0.1 K/CMM (03/22/2012 03:30:00) Basophils # [0.0-0.2 K/CMM] 0.1 K/CMM (03/22/2012 03:30:00) Anisocyte [None Seen] 1+ *ABN* (03/23/2012 06:50:00) 1+ *ABN* (03/22/2012 03:30:00) Polychrom [None Seen] Slight (03/23/2012 06:50:00) Slight (03/22/2012 03:30:00) Hypochrom [None Seen] Slight (03/23/2012 06:50:00) Microcyte [None Seen] 1+ *ABN* (03/23/2012 06:50:00) 3+ *NA* (03/22/2012 03:30:00) Elliptocyte [None Seen] Slight *ABN* (03/23/2012 06:50:00) Slight *ABN* (03/22/2012 03:30:00) PB Smear Path Peripheral blood smear shows microcytic, hypochromic anemia with anisopoikilocytosis, elliptocytes. The WBCs are decreased, without blasts or dysplastic forms. Review of laboratory results shows decreased serum iron saturation. Impression: (1) lab results and morphology are consistent with iron deficiency anemia, (2) Rouleaux is also seen. Recommend serum protein electrophoresis if clinically indicated. CPT: 29999 *NA* (03/24/2012 03:58:00) Large Plt [None Seen] Slight *ABN* (03/23/2012 06:50:00) Slight *ABN* (03/22/2012 03:30:00) 12Result Comment: cbc rechecked. IMMUNOLOGY Most recent to oldest [Reference Range]: 1 2 3 Hep Bs Ag [Negative] Negative *NA* (03/24/2012 03:58:00) Hep B Core IgM [Negative] Negative *NA* (03/24/2012 03:58:00) Hep A IgM [Negative] Negative *NA* (03/24/2012 03:58:00) Hep C Ab [Negative] Negative *NA* (03/24/2012 03:58:00) Microbiology Reports PROCEDURE:Culture: Urine STATUS: Auth (Verified) BODY SITE: COLLECTED DATE/TIME: 03/22/2012 04:56:00 SOURCE: U Bladder FREE TEXT SOURCE: FINAL REPORTS Final Report >10,000/cfu/ml Skin [place] PRELIMINARY REPORTS Preliminary Report Holding For Better Growth PROCEDURE:Culture: Urine STATUS: Auth (Verified) BODY SITE: COLLECTED DATE/TIME: 03/22/2012 01:12:00 SOURCE: Urine, Clean Catch FREE TEXT SOURCE: FINAL REPORTS Final Report 10,000 - 50,000 CFU/mL Skin [place] PRELIMINARY REPORTS Preliminary Report No Growth; Holding
--- OUTSIDE RECORDS SUMMARY | 2018-07-18 08:43 | XMS REPORT ---
Author Author Julio C Minor [facility] eClinicalWorks Address Unknown Phone Unavailable Care Team Providers Care Pecan Grower Name Role Phone Julio C Minor CP Unavailable Allergies No Known Allergies Problems Problem Type Condition Code Onset Dates Condition Status Problem Diabetes mellitus due to underlying condition with diabetic neuropathy, unspecified E08.40 Active Problem Chest pain on breathing R07.1 Active Problem Left upper quadrant pain R10.12 Active Problem Urinary tract infection, site not specified N39.0 Active Problem Unspecified convulsions R56.9 Active Problem Extended spectrum beta lactamase (ESBL) resistance Z16.12 Active Problem Type 2 diabetes mellitus with hyperglycemia E11.65 Active Problem Hypothyroidism, unspecified E03.9 Active Problem Dizziness and giddiness R42 Active Problem Essential (primary) hypertension I10 Active Problem Type 2 diabetes mellitus without complications E11.9 Active Problem Low back pain M54.5 Active Problem Schizophrenia, unspecified F20.9 Active Medications No Known Medications Results No Known Results Summary Purpose eClinicalWorks Submission
--- OUTSIDE RECORDS SUMMARY | 2018-07-18 08:43 | XMS REPORT ---
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.12 Active Problem Urinary tract infection, site not specified N39.0 Active Problem Type 2 diabetes mellitus with diabetic neuropathy, unspecified E11.40 Active Problem Essential (primary) hypertension I10 Active Problem Type 2 diabetes mellitus with hyperglycemia E11.65 Active Problem Unspecified convulsions R56.9 Active Problem Dizziness and giddiness R42 Active Problem Type 2 diabetes mellitus without complications E11.9 Active Problem Low back pain M54.5 Active Problem Schizophrenia, unspecified F20.9 Active Problem Left upper quadrant pain R10.12 Active Medications No Known Medications Results No Known Results Summary Purpose eClinicalWorks Submission
--- OUTSIDE RECORDS SUMMARY | 2018-07-18 08:43 | XMS REPORT ---
Author Author Shan Be [facility] eClinicalWorks Address Unknown Phone Unavailable Care Team Providers Care Plumber Assistant Name Role Phone Shan Be Unavailable Allergies No Known Allergies Problems Problem Type Condition Code Onset Dates Condition Status Problem Hypothyroidism, unspecified E03.9 Active Problem Schizophrenia, unspecified F20.9 Active Problem Chest pain on breathing R07.1 Active Problem Type 2 diabetes mellitus with hyperglycemia E11.65 Active Problem Diabetes mellitus due to underlying condition with diabetic neuropathy, unspecified E08.40 Active Problem Left upper quadrant pain R10.12 Active Problem Low back pain M54.5 Active Problem Type 2 diabetes mellitus without complications E11.9 Active Medications No Known Medications Results No Known Results Summary Purpose eClinicalWorks Submission
--- OUTSIDE RECORDS SUMMARY | 2018-07-18 08:43 | XMS REPORT ---
Author Author Shan Be [facility] eClinicalWorks Address Unknown Phone Unavailable Care Team Providers Care Stiff Straw Hat Washer Name Role Phone Shan Be Unavailable Allergies [...]
--- OUTSIDE RECORDS SUMMARY | 2018-07-18 08:43 | XMS REPORT ---
Author Author Shan Be Organization eClinicalWorks Address Unknown Phone Unavailable Care Team Providers Care Seismograph Computer Name Role Phone Shan Be Unavailable Allergies No Known Allergies Problems Problem Type Condition Code Onset Dates Condition Status Problem Diabetes mellitus due to underlying condition with diabetic neuropathy, unspecified E08.40 Active Problem Type 2 diabetes mellitus with hyperglycemia E11.65 Active Problem Hypothyroidism, unspecified E03.9 Active Problem Type 2 diabetes mellitus with diabetic neuropathy, unspecified E11.40 Active Problem Extended spectrum beta lactamase (ESBL) resistance 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.12 Active Problem Chronic pain syndrome G89.4 Active Problem Dizziness and giddiness R42 Active Problem Essential (primary) hypertension I10 Active Problem Urinary tract infection, site not specified N39.0 Active Problem Unspecified convulsions R56.9 Active Problem Left upper quadrant pain R10.12 Active Problem Chest pain on breathing R07.1 Active Problem Low back pain M54.5 Active Problem Type 2 diabetes mellitus without complications E11.9 Active Problem Schizophrenia, unspecified F20.9 Active Medications No Known Medications Results No Known Results Summary Purpose eClinicalWorks Submission
--- OUTSIDE RECORDS SUMMARY | 2018-07-18 08:43 | XMS REPORT ---
Author Author Shan Be [facility] eClinicalWorks Address Unknown Phone Unavailable Care Team Providers Care Desk Attendant Name Role Phone Shan Be Unavailable Allergies [...]
--- OUTSIDE RECORDS SUMMARY | 2018-07-18 08:43 | XMS REPORT ---
Author Author Shan Be Organization e[employer]Works Address Unknown Phone Unavailable Care Team Providers Care Electronics Instructor Name Role Phone Shan Be Unavailable Allergies [...]
--- OUTSIDE RECORDS SUMMARY | 2018-07-18 08:43 | XMS REPORT | Summary of Care ---
Author Organization Unknown Address Unknown Phone Unavailable Encounter HQ Bouchra_gerson(KALYAN) [id number] Date(s): 11/15/13 - 11/18/13 [facility] [address] Discharge Disposition: Home Physician Attending: Angelica Mcbride MD Physician Admitting: Emanuel Michaels MD Physician_Referring: Emanuel Michaels MD Reason for Visit EMU PHASE 1---SEIZURES Vital Signs 1 2 3 Most recent to oldest [Reference Range]: 165.1 cm (11/15/13 1:21 PM) Height 97.7 DegF (11/18/13 9:10 AM) 96.8 DegF (11/17/13 8:40 PM) 96.9 DegF (11/17/13 9:02 AM) Temperature Oral [96.4-99.1 DegF] 117 mmHg (11/18/13 9:10 AM) 132 mmHg (11/17/13 8:40 PM) 130 mmHg (11/17/13 9:02 AM) Systolic Blood Pressure [90-140 mmHg] 70 mmHg (11/18/13 9:10 AM) 88 mmHg (11/17/13 8:40 PM) 93 mmHg *HI* (11/17/13 9:02 AM) Diastolic Blood Pressure [60-90 mmHg] 16 BRMIN (11/18/13 9:10 AM) 18 BRMIN (11/17/13 8:40 PM) 16 BRMIN (11/17/13 9:02 AM) Respiratory Rate [14-20 BRMIN] 84 bpm (11/18/13 9:10 AM) 100 bpm (11/17/13 8:40 PM) 85 bpm (11/17/13 9:02 AM) Peripheral Pulse Rate [60-100 bpm] 90 kg (11/15/13 1:21 PM) Weight 33.02 m2 (11/15/13 1:21 PM) Body Mass Index Problem List Condition Effective Dates Status Health Status Informant Anemia(Confirmed) Resolved Diabetes Resolved mellitus(Confirmed) DM - Diabetes Resolved mellitus(Confirmed) Epilepsy(Confirmed) Resolved Headache(Confirmed) Resolved Hyperglycemia(Confir Active med) Hypothyroidism(Confi Resolved rmed) Migraines(Confirmed) Resolved Seizure after head Resolved injury(Confirmed) Seizure Active precautions(Confirme d) Seizures(Confirmed) Resolved Allergies, Adverse Reactions, Alerts Substance Reaction Severity Status morphine Active Medications Dextrose 50% Syringe 25 gm, 50 mL, Route: IVP, Drug Form: INJ, Dosing Weight 90, kg, PRN, PRN Blood G lucose Results, Start date: 11/18/13 1:04:00, Duration: 30 day, Stop date: 12/18 1:03:00 Start Date: 11/18/13 Stop Date: 11/18/13 Status: Discontinued Dextrose 50% Syringe 12.5 gm, 25 mL, Route: IVP, Drug Form: INJ, Dosing Weight 90, kg, PRN, PRN Blood Glucose Results, Start date: 11/18/13 1:04:00, Duration: 30 day, Stop date: 1:03:00 Start Date: 11/18/13 Stop Date: 11/18/13 Status: Discontinued Dextrose 50% Syringe 25 gm, 50 mL, Route: IVP, Drug Form: INJ, Dosing Weight 90, kg, PRN, PRN Blood G lucose Results, Start date: 11/17/13 14:08:00, Duration: 30 day, Stop date: 11/27 06/11 14:07:00 Start Date: 11/17/13 Stop Date: 11/18/13 Status: Deleted Dextrose 50% Syringe 12.5 gm, 25 mL, Route: IVP, Drug Form: INJ, Dosing Weight 90, kg, PRN, PRN Blood Glucose Results, Start date: 11/17/13 14:08:00, Duration: 30 day, Stop date: 14:07:00 Start Date: 11/17/13 Stop Date: 11/18/13 Status: Deleted DULoxetine 120 mg, 2 cap, Route: PO, Drug form: DRC, QPM, Dosing Weight 90, kg, Start date: 11/15/13 17:00:00, Duration: 30 day, Stop date: 12/14/13 17:00:00, Patient's Own Meds Notes: (Same as: Cymbalta) (Do Not Crush) Start Date: 11/15/13 Stop Date: 11/18/13 Status: Discontinued DULoxetine 60 mg oral delayed release capsule 120 mg=2 cap, PO, QPM, # 30 cap, 0 Refill(s) Start Date: 11/15/13 Status: Ordered escitalopram 10 mg, 1 tab, Route: PO, Drug form: TAB, Daily, Dosing Weight 90, kg, Start date : 11/16/13 9:00:00, Duration: 30 day, Stop date: 12/15/13 9:00:00, Patient's Own Meds Notes: (Same as: Lexapro) Start Date: 11/16/13 Stop Date: 11/18/13 Status: Discontinued escitalopram 10 mg oral tablet 10 mg=1 tab, PO, Daily, # 30 tab, 0 Refill(s) Start Date: 11/15/13 Status: Ordered fludrocortisone 0.1 mg, 1 tab, Route: PO, Drug form: TAB, BID, Dosing Weight 90, kg, Start date: 11/15/13 17:00:00, Duration: 30 day, Stop date: 12/15/13 9:00:00, Patient's Own Meds Notes: (Same as: Florinef Acetate) Give with food. Start Date: 11/15/13 Stop Date: 11/18/13 Status: Discontinued gabapentin 800 mg, 2 cap, Route: PO, Drug form: CAP, TID, Dosing Weight 90, kg, Start date: 11/15/13 17:00:00, Duration: 30 day, Stop date: 12/15/13 13:00:00, Patient's Own Meds Notes: (Same as: Neurontin) Start Date: 11/15/13 Stop Date: 11/16/13 Status: Discontinued gabapentin 800 mg oral tablet 800 mg=1 tab, PO, TID, # 90 tab, 0 Refill(s) Start Date: 11/15/13 Status: Ordered gabapentin 800 mg tab gabapentin 800 mg tab, 800 mg, 1 tab, Drug form: MISC, Route: PO, Q8H, 11/16/13 8:00:00, Duration: 30 day, Stop date: 12/16/13 0:00:00 Start Date: 11/16/13 Stop Date: 11/18/13 Status: Discontinued glucagon 1 mg, Route: IM, Drug form: PDR/INJ, PRN, Dosing Weight 90, kg, PRN Blood Glucos e Results, Start date: 11/18/13 1:04:00, Duration: 30 day, Stop date: 12/18/13 1 :03:00 Start Date: 11/18/13 Stop Date: 11/18/13 Status: Discontinued glucagon 1 mg, Route: IM, Drug form: PDR/INJ, PRN, Dosing Weight 90, kg, PRN Blood Glucos e Results, Start date: 11/17/13 14:08:00, Duration: 30 day, Stop date: 12/17/13 14:07:00 Start Date: 11/17/13 Stop Date: 11/18/13 Status: Deleted insulin aspart 2 unit, 0.02 mL, Route: SUB-Q, Drug form: SOLN, TID-Before Meals, Dosing Weight 90, kg, PRN Blood Glucose Results, Start date: 11/17/13 15:54:00, Duration: 30 d ay, Stop date: 12/17/13 15:53:00 Notes: Roll in palms of hands gently; Do not shake vigorously. (Same as: NovoLO G)"single patient use only" Stable for 28 days at room temperature.Expires in _ ____ days from Date Start Date: 11/17/13 Stop Date: 11/18/13 Status: Discontinued insulin aspart 4 unit, 0.04 mL, Route: SUB-Q, Drug form: SOLN, TID-Before Meals, Dosing Weight 90, kg, PRN Blood Glucose Results, Start date: 11/17/13 15:54:00, Duration: 30 d ay, Stop date: 12/17/13 15:53:00 Notes: Roll in palms of hands gently; Do not shake vigorously. (Same as: NovoLO G)"single patient use only" Stable for 28 days at room temperature.Expires in _ ____ days from Date Start Date: 11/17/13 Stop Date: 11/18/13 Status: Discontinued insulin aspart 10 unit, 0.1 mL, Route: SUB-Q, Drug form: SOLN, TID-Before Meals, Dosing Weight 90, kg, PRN Blood Glucose Results, Start date: 11/17/13 15:54:00, Duration: 30 d ay, Stop date: 12/17/13 15:53:00 Notes: Roll in palms of hands gently; Do not shake vigorously. (Same as: NovoLO G)"single patient use only" Stable for 28 days at room temperature.Expires in _ ____ days from Date Start Date: 11/17/13 Stop Date: 11/18/13 Status: Discontinued insulin aspart 8 unit, 0.08 mL, Route: SUB-Q, Drug form: SOLN, TID-Before Meals, Dosing Weight 90, kg, PRN Blood Glucose Results, Start date: 11/17/13 15:54:00, Duration: 30 d ay, Stop date: 12/17/13 15:53:00 Notes: Roll in palms of hands gently; Do not shake vigorously. (Same as: NovoLO G)"single patient use only" Stable for 28 days at room temperature.Expires in _ ____ days from Date Start Date: 11/17/13 Stop Date: 11/18/13 Status: Discontinued insulin aspart 6 unit, 0.06 mL, Route: SUB-Q, Drug form: SOLN, TID-Before Meals, Dosing Weight 90, kg, PRN Blood Glucose Results, Start date: 11/17/13 15:54:00, Duration: 30 d ay, Stop date: 12/17/13 15:53:00 Notes: Roll in palms of hands gently; Do not shake vigorously. (Same as: NovoLO G)"single patient use only" Stable for 28 days at room temperature.Expires in _ ____ days from Date Start Date: 11/17/13 Stop Date: 11/18/13 Status: Discontinued insulin aspart 100 units/mL subcutaneous solution 10 unit=0.1 mL, SUB-Q, TID-Before Meals, # 10 mL, 0 Refill(s), other Start Date: 11/18/13 Status: Ordered insulin glargine 50 unit, 0.5 mL, Route: SUB-Q, Drug form: INJ, Bedtime, Dosing Weight 90, kg, St art date: 11/15/13 21:00:00, Duration: 30 day, Stop date: 12/14/13 21:00:00, Marj chin's Own Meds Notes: Same as Lankarena Rossostar PEN"single patient use only" Stable for 28 days at room temperature.Expires in days from Date Start Date: 11/15/13 Stop Date: 11/17/13 Status: Discontinued Insulin regular 4 unit, 0.04 mL, Route: SUB-Q, Drug form: SOLN, Bedtime, Dosing Weight 90, kg, P RN Blood Glucose Results, Start date: 11/18/13 1:04:00, Duration: 30 day, Stop d ate: 12/18/13 1:03:00 Notes: (Same as: Humulin R) Roll in palms of hands gently; Do not shake vigorou sly. "single patient use only"(Restricted to patients requiring a dose > 60 units) Stable for 28 days at room temperatureExpires in days from _ Date Start Date: 11/18/13 Stop Date: 11/18/13 Status: Discontinued Insulin regular 3 unit, 0.03 mL, Route: SUB-Q, Drug form: SOLN, Bedtime, Dosing Weight 90, kg, P RN Blood Glucose Results, Start date: 11/18/13 1:04:00, Duration: 30 day, Stop d ate: 12/18/13 1:03:00 Notes: (Same as: Humulin R) Roll in palms of hands gently; Do not shake vigorou sly. "single patient use only"(Restricted to patients requiring a dose > 60 units) Stable for 28 days at room temperatureExpires in days from _ Date Start Date: 11/18/13 Stop Date: 11/18/13 Status: Discontinued Insulin regular 1 unit, 0.01 mL, Route: SUB-Q, Drug form: SOLN, Bedtime, Dosing Weight 90, kg, P RN Blood Glucose Results, Start date: 11/18/13 1:04:00, Duration: 30 day, Stop d ate: 12/18/13 1:03:00 Notes: (Same as: Humulin R) Roll in palms of hands gently; Do not shake vigorou sly. "single patient use only"(Restricted to patients requiring a dose > 60 units) Stable for 28 days at room temperatureExpires in days from _ Date Start Date: 11/18/13 Stop Date: 11/18/13 Status: Discontinued Insulin regular 2 unit, 0.02 mL, Route: SUB-Q, Drug form: SOLN, Bedtime, Dosing Weight 90, kg, P RN Blood Glucose Results, Start date: 11/18/13 1:04:00, Duration: 30 day, Stop d ate: 12/18/13 1:03:00 Notes: (Same as: Humulin R) Roll in palms of hands gently; Do not shake vigorou sly. "single patient use only"(Restricted to patients requiring a dose > 60 units) Stable for 28 days at room temperatureExpires in days from _ Date Start Date: 11/18/13 Stop Date: 11/18/13 Status: Discontinued Lantus 25 unit, 0.25 mL, Route: SUB-Q, Drug form: INJ, Q12H, Dosing Weight 90, kg, Star t date: 11/17/13 21:00:00, Duration: 30 day, Stop date: 12/17/13 9:00:00 Notes: Same as Lantus Solostar PEN"single patient use only" Stable for 28 days at room temperature.Expires in days from Date Start Date: 11/17/13 Stop Date: 11/18/13 Status: Discontinued Lantus Solostar Pen 100 units/mL subcutaneous solution 50 units, SUB-Q, Bedtime, # 10 ml, 0 Refill(s) Start Date: 11/15/13 Stop Date: 11/18/13 Status: Discontinued Lantus Solostar Pen 100 units/mL subcutaneous solution 25 units, SUB-Q, BID, # 10 mL, 0 Refill(s), other Start Date: 11/18/13 Status: Ordered meloxicam 15 mg, 1 tab, Route: PO, Drug form: TAB, Daily, Dosing Weight 90, kg, Start date : 11/16/13 9:00:00, Duration: 30 day, Stop date: 12/15/13 9:00:00, Patient's Own Meds Notes: (Same as: Mobic) Start Date: 11/16/13 Stop Date: 11/18/13 Status: Discontinued meloxicam 15 mg oral tablet 15 mg=1 tab, PO, Daily, # 30 tab, 0 Refill(s) Start Date: 11/15/13 Status: Ordered midodrine 2.5 mg, 1 tab, Route: PO, Drug form: TAB, BID, Dosing Weight 90, kg, Start date: 11/15/13 17:00:00, Duration: 30 day, Stop date: 12/15/13 9:00:00, Patient's Own Meds Notes: (Same as:Proamatine) Start Date: 11/15/13 Stop Date: 11/18/13 Status: Discontinued midodrine 2.5 mg oral tablet 2.5 mg=1 tab, PO, BID, # 180 tab, 0 Refill(s) Start Date: 11/15/13 Status: Ordered NovoLOG 10 unit, 0.1 mL, Route: SUB-Q, Drug form: SOLN, TID-Before Meals, Dosing Weight 90, kg, Start date: 11/17/13 16:30:00, Duration: 30 day, Stop date: 12/17/13 11: 30:00 Notes: Roll in palms of hands gently; Do not shake vigorously. (Same as: Joann Guillermo)"single patient use only" Stable for 28 days at room temperature.Expires in _ ____ days from Date Start Date: 11/17/13 Stop Date: 11/18/13 Status: Discontinued NovoLOG FlexPen 13 unit, 0.13 mL, Route: SUB-Q, Drug form: SOLN, TID-Before Meals, Dosing Weight 90, kg, Start date: 11/15/13 16:30:00, Duration: 30 day, Stop date: 12/15/13 11 :30:00, Patient's Own Meds Notes: Roll in palms of hands gently; Do not shake vigorously. (Same as: Joann G)"single patient use only" Stable for 28 days at room temperature.Expires in _ ____ days from Date Start Date: 11/15/13 Stop Date: 11/17/13 Status: Discontinued NovoLOG FlexPen 100 units/mL subcutaneous solution 13 units, SUB-Q, TID-Before Meals, # 3 mL, 0 Refill(s) Start Date: 11/15/13 Stop Date: 11/18/13 Status: Discontinued NS 1,000 mL 1,000 mL, Rate: 125 ml/hr, Infuse over: 8 hr, Route: IV, Dosing Weight 90 kg, To charlie Volume: 1,000, Priority: STAT, Start date: 11/17/13 22:28:00, Duration: 30 d ay, Stop date: 12/17/13 22:27:00 Start Date: 11/17/13 Stop Date: 11/18/13 Status: Discontinued Potiga Potiga, 200 mg, Route: PO, BID, 11/15/13 17:00:00, Duration: 30 day, Stop date: 12/15/13 9:00:00, Patient's Own Meds Start Date: 11/15/13 Stop Date: 11/18/13 Status: Discontinued Potiga 200 mg oral tablet 200 mg=1 tab, PO, BID, 0 Refill(s) Start Date: 11/15/13 Status: Ordered propranolol 20 mg, 1 tab, Route: PO, Drug form: TAB, BID, Dosing Weight 90, kg, Start date: 11/15/13 17:00:00, Duration: 30 day, Stop date: 12/15/13 9:00:00, Patient's Own Meds Notes: Give with food.(Same as: Inderal) Start Date: 11/15/13 Stop Date: 11/18/13 Status: Discontinued propranolol 20 mg oral tablet 20 mg=1 tab, PO, BID, # 60 tab, 0 Refill(s) Start Date: 11/15/13 Status: Ordered SUMAtriptan 6 mg, 0.5 mL, Route: SUB-Q, Drug form: INJ, Daily, Dosing Weight 90, kg, PRN Hea dache, Start date: 11/15/13 15:36:00, Duration: 30 day, Stop date: 12/15/13 15:3 5:00, headcahe Notes: For SUBCUTANEOUS use only Start Date: 11/15/13 Stop Date: 11/18/13 Status: Discontinued SUMAtriptan 100 mg, 2 tab, Route: PO, Drug form: TAB, Daily, Dosing Weight 90, kg, PRN Heada yamil, Start date: 11/15/13 15:36:00, Duration: 30 day, Stop date: 12/15/13 15:35: 00, Patient's Own Meds Notes: (Same As: Imitrex) Start Date: 11/15/13 Stop Date: 11/16/13 Status: Discontinued SUMAtriptan 100 mg oral tablet 100 mg=1 tab, PO, Daily, for migraine headache, # 18 tab, 0 Refill(s) Start Date: 11/15/13 Status: Ordered sumatriptan 100 mg tab sumatriptan 100 mg tab, 100 mg, 1 tab, Drug form: MISC, Route: PO, Daily, PRN He adache, 11/16/13 1:52:00, Duration: 30 day, Stop date: 12/16/13 1:51:00 Start Date: 11/16/13 Stop Date: 11/18/13 Status: Discontinued SUMAtriptan 6 mg/0.5 mL subcutaneous solution 6 mg=0.5 ml, SUB-Q, Headache, per onset of headache- see rx instructions, # 1, 0 Refill(s) Special Instructions: per onset of headache- see rx instructions Start Date: 11/15/13 Status: Ordered Vimpat 300 mg, 3 tab, Route: PO, Drug form: TAB, BID, Dosing Weight 90, kg, Start date: 11/15/13 17:00:00, Duration: 30 day, Stop date: 12/15/13 9:00:00, Patient's Own Meds Notes: Same as: Vimpat Start Date: 11/15/13 Stop Date: 11/18/13 Status: Discontinued Vimpat 100 mg oral tablet 300 mg=3 tab, PO, BID, 0 Refill(s) Start Date: 11/15/13 Status: Ordered zonisamide 400 mg, 4 cap, Route: PO, Drug form: CAP, Bedtime, Dosing Weight 90, kg, Start d ate: 11/15/13 21:00:00, Duration: 30 day, Stop date: 12/14/13 21:00:00, Patient' s Own Meds Notes: Contraindicated in patients with hypersensitivity to sulfonamides.(Same A s: Thomas) Start Date: 11/15/13 Stop Date: 11/18/13 Status: Discontinued zonisamide 600 mg, Route: PO, Drug form: CAP, Bedtime, Dosing Weight 90, kg, Start date: 21:00:00, Duration: 30 day, Stop date: 12/14/13 21:00:00, Patient's Own M eds Start Date: 11/15/13 Stop Date: 11/15/13 Status: Canceled zonisamide 100 mg oral capsule 600 mg=6 cap, PO, Bedtime, # 60 cap, 0 Refill(s) Start Date: 11/15/13 Stop Date: 11/18/13 Status: Discontinued zonisamide 100 mg oral capsule 400 mg=4 cap, PO, Bedtime, # 120 cap, 0 Refill(s), other Start Date: 11/18/13 Status: Ordered Results ELECTROLYTES 1 2 3 Most recent to oldest [Reference Range]: 141 mEq/L (11/18/13 8:22 AM) 140 mEq/L (11/17/13 11:11 PM) 142 mEq/L (11/15/13 1:39 PM) Sodium Lvl [135-145 mEq/L] 4.1 mEq/L (11/18/13 8:22 AM) 4.1 mEq/L (11/17/13 11:11 PM) 3.2 mEq/L *LOW* (11/15/13 1:39 PM) Potassium Lvl [3.5-5.1 mEq/L] 107 mEq/L (11/18/13 8:22 AM) 101 mEq/L (11/17/13 11:11 PM) 104 mEq/L (11/15/13 1:39 PM) Chloride Lvl [95-109 mEq/L] 25 mEq/L (11/18/13 8:22 AM) 29 mEq/L (11/17/13 11:11 PM) 28 mEq/L (11/15/13 1:39 PM) CO2 [24-32 mEq/L] 13.1 mEq/L (11/18/13 8:22 AM) 14.1 mEq/L (11/17/13 11:11 PM) 13.2 mEq/L (11/15/13 1:39 PM) AGAP [10.0-20.0 mEq/L] CHEM PANEL 1 2 3 Most recent to oldest [Reference Range]: 0.7 mg/dL (11/18/13 8:22 AM) 1.2 mg/dL (11/17/13 11:11 PM) 0.8 mg/dL (11/15/13 1:39 PM) Creatinine Lvl [0.5-1.4 mg/dL] 106 mL/min/1.73m2 1 *NA* (11/18/13 8:22 AM) 55 mL/min/1.73m2 2 *NA* (11/17/13 11:11 PM) 91 mL/min/1.73m2 3 *NA* (11/15/13 1:39 PM) eGFR 16 mg/dL (11/18/13 8:22 AM) 20 mg/dL (11/17/13 11:11 PM) 17 mg/dL (11/15/13 1:39 PM) BUN [7-22 mg/dL] 17 (11/17/13 11:11 PM) B/C Ratio [6-25] 178 mg/dL 4 *HI* (11/18/13 8:22 AM) 464 mg/dL 5, 6 *CRIT* (11/17/13 11:11 PM) 154 mg/dL 7 *HI* (11/15/13 1:39 PM) Glucose Lvl [70-99 mg/dL] 6.1 g/dL *LOW* (11/17/13 11:11 PM) 6.6 g/dL (11/15/13 1:39 PM) Total Protein [6.4-8.4 g/dL] 3.6 g/dL (11/17/13 11:11 PM) 4.0 g/dL (11/15/13 1:39 PM) Albumin Lvl [3.5-5.0 g/dL] 2.5 g/dL (11/17/13 11:11 PM) 2.6 g/dL (11/15/13 1:39 PM) Globulin [2.0-4.0 g/dL] 1.4 (11/17/13 11:11 PM) 1.5 (11/15/13 1:39 PM) A/G Ratio [0.7-1.6] 8.7 mg/dL (11/18/13 8:22 AM) 8.5 mg/dL (11/17/13 11:11 PM) 8.8 mg/dL (11/15/13 1:39 PM) Calcium Lvl [8.5-10.5 mg/dL] 4.4 mg/dL (11/17/13 11:11 PM) Phosphorus [2.5-4.5 mg/dL] 20 unit/L (11/17/13 11:11 PM) 24 unit/L (11/15/13 1:39 PM) ALT [0-65 unit/L] 18 unit/L (11/17/13 11:11 PM) 13 unit/L (11/15/13 1:39 PM) AST [0-37 unit/L] 210 unit/L *HI* (11/17/13 11:11 PM) 136 unit/L (11/15/13 1:39 PM) Alk Phos [39-136 unit/L] 0.3 mg/dL (11/17/13 11:11 PM) 0.5 mg/dL (11/15/13 1:39 PM) Bili Total [0.2-1.3 mg/dL] 0.3 mg/dL (11/15/13 1:39 PM) Bili Direct [0.0-0.3 mg/dL] 0.2 mg/dL (11/15/13 1:39 PM) Bili Indirect [0.0-1.0 mg/dL] 1Result Comment: The eGFR is calculated using [...] be mul tiplied by the estimated BMI. 2Result Comment: The eGFR is calculated using [...] values reflect the clinical guidelines of the [place] [employer]. 5Result Comment: Critical Result(s) called to Nella Philip at 11/18/2013 01:22 by TH. Read back OK. 6Interpretive Data: Adult reference range values reflect the clinical guidelines of the [place] [employer]. 7Interpretive Data: Adult reference range values reflect the clinical guidelines of the [place] [employer]. LIPIDS 1 2 3 Most recent to oldest [Reference Range]: 3.49 *LOW* (11/18/13 8:22 AM) CHD Risk [3.90-5.80] 241 mg/dL *HI* (11/18/13 8:22 AM) Chol [<=199 mg/dL] 130 mg/dL (11/18/13 8:22 AM) Trig [<=149 mg/dL] 69 mg/dL (11/18/13 8:22 AM) HDL [>=61 mg/dL] 146 mg/dL *HI* (11/18/13 8:22 AM) LDL (Calculated) [<=99 mg/dL] 26 *NA* (11/18/13 8:22 AM) VLDL SPECIAL CHEMISTRY 1 2 3 Most recent to oldest [Reference Range]: 10.7 % *HI* (11/18/13 8:22 AM) Hgb A1C [<=5.6 %] TOXICOLOGY 1 2 3 Most recent to oldest [Reference Range]: 18.2 microgram/mL 8 *NA* (11/15/13 1:39 PM) Zonisamide Lvl [10.0-40.0 microgram/mL] 8.5 microgram/mL 9 *NA* (11/15/13 1:39 PM) Lacosamide Lvl 8Result Comment: Test Performed at: [facility] [place], [address] [place] [address] Radha Salmeron MD, FCAP 9Result Comment: Reference Range: Expected concentrations of lacosamide in patients receiving recommended daily dosages: Up to 15.0 mcg/mL. Toxic range not established Test Performed at: [facility] [place], [address] [place] [address] Radha Salmeron MD, FCAP URINE CHEM 1 2 3 Most recent to oldest [Reference Range]: Negative (11/15/13 1:39 PM) U Preg [Negative] URINE AND STOOL 1 2 3 Most recent to oldest [Reference Range]: Clear (11/17/13 11:10 PM) UA Turbidity [Clear] Light Yellow *NA* (11/17/13 11:10 PM) UA Color [Yellow] 6.0 (11/17/13 11:10 PM) UA pH [5.0-8.0] 1.021 (11/17/13 11:10 PM) UA Spec Grav [<=1.030] >=1000 mg/dL *ABN* (11/17/13 11:10 PM) UA Glucose [Negative mg/dL] Negative (11/17/13 11:10 PM) UA Blood [Negative] Negative mg/dL *NA* (11/17/13 11:10 PM) UA Ketones [Negative mg/dL] Negative mg/dL (11/17/13 11:10 PM) UA Protein [Negative mg/dL] <=1.0 mg/dL *NA* (11/17/13 11:10 PM) UA Urobilinogen [0.1-1.0 mg/dL] Moderate *ABN* (11/17/13 11:10 PM) UA Bili [Negative] Negative (11/17/13 11:10 PM) UA Leuk Est [Negative] Negative (11/17/13 11:10 PM) UA Nitrite [Negative] 1 /HPF (11/17/13 11:10 PM) UA WBC [0-5 /HPF] <1 /HPF (11/17/13 11:10 PM) UA RBC [0-2 /HPF] Moderate /LPF *ABN* (11/17/13 11:10 PM) UA Sq Epi [Few /LPF] Few /LPF *NA* (11/17/13 11:10 PM) UA Mucus [None Seen /LPF] 3 /LPF *HI* (11/17/13 11:10 PM) UA Trans Epi [<=0 /LPF] HEMATOLOGY 1 2 3 Most recent to oldest [Reference Range]: 4.7 K/CMM (11/15/13 1:39 PM) WBC [3.7-10.4 K/CMM] 4.41 M/CMM (11/15/13 1:39 PM) RBC [4.20-5.40 M/CMM] 14.3 g/dL (11/15/13 1:39 PM) Hgb [12.0-16.0 g/dL] 41.2 % (11/15/13 1:39 PM) Hct [36.0-48.0 %] 93.3 fL (11/15/13 1:39 PM) MCV [81.0-99.0 fL] 32.4 pg *HI* (11/15/13 1:39 PM) MCH [27.0-31.0 pg] 34.7 g/dL (11/15/13 1:39 PM) MCHC [32.0-36.0 g/dL] 13.1 % (11/15/13 1:39 PM) RDW [11.5-14.5 %] 185 K/CMM (11/15/13 1:39 PM) Platelet [133-450 K/CMM] 8.7 fL (11/15/13 1:39 PM) MPV [7.4-10.4 fL] 73.5 % (11/15/13 1:39 PM) Segs [45.0-75.0 %] 21.0 % (11/15/13 1:39 PM) Lymphocytes [20.0-40.0 %] 5.5 % (11/15/13 1:39 PM) Monocytes [2.0-12.0 %] 3.4 K/CMM (11/15/13 1:39 PM) Segs-Bands # [1.5-8.1 K/CMM] 1.0 K/CMM (11/15/13 1:39 PM) Lymphocytes # [1.0-5.5 K/CMM] 0.3 K/CMM (11/15/13 1:39 PM) Monocytes # [0.0-0.8 K/CMM] Medications Administered During Your Visit No data available for this section Immunizations Vaccine Date Refusal Reason pneumococcal 23-valent vaccine 07/23/11 Procedures Procedure Type Body Site Date of Procedure Related Diagnosis Gallbladder operation Lobectomy of brain Tonsils and adenoids postoperative education Social History Social History Type Response Alcohol Use: Never, Previous treatment: None Smoking Status Never smoker, Exposure to Tobacco Smoke None, Cigarette Smoking Last 365 Days No, Reg Smoking Cessation Counseling No Assessment and Plan Extracted from: Title: Clinical Document Author: Marina Kingston MD Date: 11/18/13 EMU Discharge Summary Date of admission: 11/15/2013 Date of discharge: 11/18/2013 Attending: Dr. Mcbride Referring physician: Dr. Michaels Discharge Diagnosis: - non-epileptic seizures - epilepsy s/p resection - uncontrolled type 2 DM, insulin dependent Reason for admission: evaluation of seizure-like events Brief HPI /Seizure History: 43 year old HF with PMH of DM (insulin dependent), orthostatic hypotension, migraines and seizure disorder s/p L anterior temporal lobe resection on 06/04/2011 referred here for phase 1 evaluation due to suboptimal control of her seizure activity. Patient had epilepsy surgery on May 2011; she underwent a left anterior temporal lobectomy then was readmitted after 10 days from her surgery with seizures consiting of R ight facial clonus associated with repetitive epileptiform discharges from the left frontocentral region. This second seizure type was treated with medications then patient was discharged and continued to have seizures despite high doses and adding more anticonvulsants. In July 2011 she had another EMU admission that demonstrated that the most recent seizures were psychogenic in nature. She continued to follow with Dr. Camarena and then with Dr. Michaels as outpatient. She is on Vimpat, Zonisamide, Potiga, Gabapentine and still continues to have seizures. She has 2 types: staring spells with eye deviation to the left that ocur daily, lasts for 30-40 sec, with patient looking tired and sleepy after them (sometimes patient respond to arm pinching during these events, per ). The second type is right face twitching with right arm shaking, lasts for 30 sec, and is sleepy after the events; they ocur x3/month. During the second type of seiuzres, patint is able to communicate by movements, but cannot talk. Seizure Hx: Age of Onset: 27 years of age Type 1 (most current): staring spells Duration: 30-40 sec Frequency: 1-2 event/day Auras: None, sometime jhonny vu or "dream like" feeling Incontinence: None Triggers: stress, tired Longest seizure free period: none Injury: None Type 2: CPS, right face twitching and right arm shaking Duration: 30 sec Frequency: x3/month Auras: None Incontinence: None Triggers: None Longest seizure free period: 1 week Injury: falls, bruises EMU course: Patient was admitted to Adult EMU and started on continuous video- EEG monitoring. She had at least 10 push-button events, similar to her events at home. Most of the events were: confusion, staring spells (head to the left and eyes down to the left) , slow speech, mouth automatisms, left facial droop with drooling, and left or right sided arm and leg tremor. None of these events had EEG correlation. However, her EEG showed occasional left cvdbtj-imcowj-fetgctfe sharps occuring with drowsiness. During admission, patient had episodes of hypoglycemia and hyperglycemia (blood glucose 39-486); Endocrinology was consulted and recommended change in her home insulin. Patient received written instructions on insulin regimen changes, per Endocrinology team recommendations. She was discharged with plan to follow with Dr. Michaels, her Catering Attendant and recommendation to follow up with Psychiatrist for her non-epileptic events. No changes were done to her home AEDs regimen. Current AEDs: Vimpat 300 mg BID Zonisamide 400 mg QHS Gabapentin 800 mg Q8hr Potiga 200 mg BID Pertinent Lab results: 11/15 1339 Glucose Sur889 H 11/18 0646 Glucose JSX586 H 11/18 0553 Glucose POC54 L 11/18 0401 Glucose CBN249 H 11/18 0036 Glucose YPT560 C 11/17 2218 Glucose VYB949 C 11/17 1719 Glucose EGP335 H 11/17 1141 Glucose LTV052 H 11/18 0822 Blfr015 H Cisr129 HDL69 LDL (Calculated)146 H VLDL26 CHD Risk3.49 L Glucose Qgp068 H BUN16 Creatinine Lvl0.7 Sodium Ogt509 Potassium Lvl4.1 Chloride Csh831 CO225 AGAP13.1 Calcium Lvl8.7 wEOM880 Hgb A1C10.7 H Procedures performed: vEE/21: This is an abnormal 23-hour video electroencephalogram due to occasional sharp left mid-temporal sharps occuring with drowsiness suggestive of a possible underlying focus in the same location. There are 2 push buttons stereotypical of the patient's events without clear electrographic correlation. 11/16: This is an abnormal 23-hour video electroencephalogram due to occasional sharp left tuuhbv-rdrbgc-nmderrol sharps occuring with drowsiness suggestive of a possible underlying focus in the same location. There is one push button stereotypical of the patient's complaint without clear electrographic correlation. 11/17: This is an abnormal 23-hour video electroencephalogram due to rare left temporal sharps seen with drowsiness. There are numerous push button events stereotypical of the patient's complaints without electrographic correlate. Discharge medications: continue home medications; the only change was done in insulin regimen as follows: Long acting insulin: Inject Lantus 25 units in AM and 25 units in PM. (Approximately 12 hrs apart) Short Acting Insulin: Inject Novolog 10 units five to ten minutes before meals AEDs: Vimpat 300 mg BID Zonisamide 400 mg QHS Gabapentin 800 mg Q8hr Potiga 200 mg BID Discharge Follow-up: 1. Dr. Michaels, patient to call for appointment in 4-6 weeks 2. Catering Attendant, Dr.Charlie Be, in 1-2 weeks, for uncontrolled DM 3. Psychiatry, for non-epileptic events Other discharge instructions: No driving until 6 MO seizures free. If patient develops side effects from medication or worsening seizures, please notify a physician. 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 Patient seen and examined with . I agree with her documented findings and care. Discussed evaluation with last night as he was unavailable during rounds, as well as patient yesterday and today. No electrographic correlate to patients episodes. Multiple episodes captured many with varying clinical presentations, but most common was the staring episodes and chewing movements. No changes were made to patients medications while she was monitored or at discharge. Patient's mother was at bedside when patient was informed that episodes were non-epileptic. It was reiterated to the patient that this did not mean that she did not have epilepsy in the past or currently, but that these episodes were non- epileptic. Patient was very resistant to this. I also informed the patient that titrating up seizure medications for these non epileptic events would not be helpful and would result in further side effects. No changes were made to her medications, and she will follow up with Dr. Barros her referring physician as an outpatient for further recommendations. Psychological evaluation and treatment was recommended. Patients questions were answered, but she remained resistant to the report of non-epileptic nature of events. Patient had fluctuating blood sugars while in the hospital. Endocrinology was consulted for recommendations to her Insulin regimen. Insulin regimen recommendations were given to the patient to be discussed with her outpatient chief medical physicist. Some of her non seizure symptoms may be due poorly controlled sugars. Her sugars were checked during her non epileptic events and were within normal range. Angelica Mcbride MD [facility] Attending Codes: [phone] Extracted from: Title: Endocrine Daily Progress Author: Vaughn Li MD Date: 11/18/13 Note Endocrine Daily Progress Note Patient Room: [address] [place] LANDER[place] G43y (: 1970) F Attending: Angelica Mcbride MDPhone: Service: Neurology Service Chief Complaint: Admitted for Video EEG Subjective: Reports having felt the hypoglycemic event this AM. Has been c/o headaches. REVIEW OF SYSTEMS: GEN- Denies fever or chills NECK- Denies neck pain/ swelling CVS- Denies chest pain or palpitations RESP- Denies SOB or cough ABD- Denies abdominal pain nausea vomiting or diarrhea NEURO- + headache SKIN- Denies rash or pruritus ENDO- + hypoglycemia Objective: VitalsTmp(F)YejkpZPHRWkO3XXW0 11/18 09:1097.644432/7016------ 11/17 20:4096.4101105/8818------ 11/17 09:0296.454671/9316------ 11/16 19:3097.137674/217489--- 24 Hr Tmax: 97.7F (36.50c) at 11/18 09:10Vital Signs are the last 5 in the past 48 hours. DateWt(kg)Wt(lb)Ht(cm)Ht(in)Method 11/15 (initial) 90.00 198.99679.10 65.00Stated General- Obese Female in NAD HEENT- Patient has electrodes for VideoEEG, MMM CVS- S1 and S2 RRR, no M/R/G Chest- Lungs CTA Abdomen- Obese, soft, NT, ND Extremities- Trace edema, pulses + Skin- warm and dry Neuro- Alert , no focal motor deficit, decreased sensation in LE, poor memory Psych- Is tangential Data: 24hr Labs 11/18 1131 Glucose KED829 H 11/18 0822 Qvel100 H Tnxz475 HDL69 LDL (Calculated)146 H VLDL26 CHD Risk3.49 L Glucose Vpm285 H BUN16 Creatinine Lvl0.7 Sodium Eny015 Potassium Lvl4.1 Chloride Svj006 CO225 AGAP13.1 Calcium Lvl8.7 mVJI959 Hgb A1C10.7 H 11/18 0646 Glucose RBO673 H 11/18 0553 Glucose POC54 L 11/18 0401 Glucose FXG038 H 11/18 0036 Glucose HRC613 C 11/17 2311 Phosphorus4.4 Sodium Xaz890 Potassium Lvl4.1 Chloride Gal999 CO229 AGAP14.1 Glucose Rvv502 C Creatinine Lvl1.2 BUN20 B/C Ratio17 Total Protein6.1 L Albumin Lvl3.6 Globulin2.5 A/G Ratio1.4 Calcium Lvl8.5 ALT20 AST18 Alk Vrrt428 H Bili Total0.3 eGFR55 11/17 2310 UA ColorLight Yellow UA TurbidityClear UA Spec Grav1.021 UA pH6.0 UA ProteinNegative UA Glucose>=1000 UA KetonesNegative UA BiliModerate UA BloodNegative UA Urobilinogen<=1.0 UA NitriteNegative UA Leuk EstNegative UA RBC<1 UA WBC1 UA MucusFew UA Sq EpiModerate UA Trans Epi3 H 11/17 2218 Glucose SOC274 C 11/17 1719 Glucose YFR022 H Assessment/Plan: 43 year old HF with PMH of DM type 2, orthostatic hypotension, migraines and seizure disorder s/p L anterior temporal lobe resection on 06/04/2011 Currently admitted fro [facility]. Endocrinology consulted due to fluctuating blood glucose levels, including a hypoglycemic episode yon 11/16 with a BG of 39. 1 Diabetes Mellitus type 2 Likely uncontroleld in past has had HbA1c in 10.7% on this admission Currently on Lantus to 25 units Q12h, Novolog 10 units TIDAC and medium dose sliding scale By splitting her long acting insulin we hope to prevent her frequent nightime hypoglycemias Yesterday patient administered her own inuslin dose for dinner, unclear amount Nurse administered PM Lantus dose Patient reported having eaten some chocolate candies later at night She had a BMP checked which showed a BG >400 and this corroborated by a POC FS She was administered a correction dose of 4 units of regular insulin Early this AM BG in 50's Subsequent blood glucose levels in 150-180s Primary team aiming for discharge today Was seen by asthma educator and alternative energy technician At this time would discharge on current regimen and have her follow up with her chief medical physicist as outpatient. Demetria Garcia MD PGY5 Endocrinology, Diabetes and Metabolism Pager Number: [phone] Endocrine Attending Teaching Note: I have interviewed and examined the patient, and I have reviewed the fellow's note and agree with the clinical findings, assessment, and plan. I have discussed the case with Dr. Garcia. Uncontrolled DM-2 with intractable seizure disorder. I agree with adjustment in insulin dosing. She will be discharged and return to her usual chief medical physicist. Will communicate the changes in her regimen with him. Patient and mother counseled on avoidance of hypoglycemia. Extracted from: Title: Endocrine Consult Note: Author: Vaughn Li MD Date: 11/17/13 Endocrine Consult Note: [address] 3[address] 1970) F Attending: Angelica Mcbride MDPhone: Service: Neurology Service DATE OF CONSULT: 11/17/13 REFERRING PHYSICIAN: CONSULTING PHYSICIAN: REASON FOR CONSULTATION: Uncontrolled Diabetes Mellitus CHIEF COMPLAINT: Admitted for video EEG HISTORY OF PRESENT ILLNESS: Patient is poor historian information obtained mostly from medical record 43 year old HF with PMH of DM type 2, orthostatic hypotension, migraines and seizure disorder s/p L anterior temporal lobe resection on 06/04/2011 referred here due e to suboptimal control of her seizure activity. She is on Vimpat, Zonisamide, Potiga, Gabapentine and still continues to have seizures. While in the EMU she has been adminsitering her own medications she has had fluctuating blood glucose levels, including a hypoglycemic episode yesterdya at noon. With regards to her diabetes states she was diagnosed in late 20's early 30's. Initially oral medication, most recnetly on insulin. Follows with Dr.Charlie Be and chief medical physicist. I called his office they stated patient has only been seen thre twice, no recent HbA1c was available. As per his office supposed to be taking Lantus 50units in PM and Aspart 18 units TIDAC. Unknown if she has nephropathy or retinopathy. Does report some neuropahy characterized by numness in feet. Denies admission for DKA. Reports she as been hypoglycemic. Thinks she might have had some seizures associaed with a low blood sugar. Reports they haapen oftern usually in the middle fo the night. She usually wakes up and subsequently feels shaky or anxious PAST MEDICAL HISTORY: Epilepsy Migraines Diabetes Mellitus Orthistatic hypotension Depression PAST SURGICAL HISTORY: Tonsillectomy Cholecystectomy Left anterior temporal lobe resection Ankle surgery SOCIAL HISTORY: has 2 children Denies alcohol, drug, tobacco use FAMILY HISTORY: Diabetes in father Cancer? mother Allergies (1) ActiveReaction morphineNone documented Medications (22) Active Scheduled Meds (12): 11/15/13 DULoxetine 120 mg PO QPM 11/16/13 escitalopram 10 mg PO Daily 11/15/13 fludrocortisone 0.1 mg PO BID 11/17/13 insulin aspart (NovoLOG) 10 unit SUB-Q TID-Before Meals 11/17/13 insulin glargine (Lantus) 25 unit SUB-Q Q12H 11/15/13 lacosamide (Vimpat) 300 mg PO BID 11/16/13 meloxicam 15 mg PO Daily 11/15/13 midodrine 2.5 mg PO BID 11/15/13 non-formulary (Potiga) 200 mg PO BID 11/16/13 non-formulary (gabapentin 800 mg tab) 800 mg PO Q8H 11/15/13 propranolol 20 mg PO BID 11/15/13 zonisamide 400 mg PO Bedtime Unscheduled Meds: None PRN Meds (10): 11/17/13 Dextrose 50% in Water IV (Dextrose 50% Syringe) 25 mL IVP PRN 11/17/13 Dextrose 50% in Water IV (Dextrose 50% Syringe) 50 mL IVP PRN 11/15/13 SUMAtriptan 6 mg SUB-Q Daily 11/17/13 glucagon 1 mg IM PRN 11/17/13 insulin aspart 2 unit SUB-Q TID-Before Meals 11/17/13 insulin aspart 4 unit SUB-Q TID-Before Meals 11/17/13 insulin aspart 6 unit SUB-Q TID-Before Meals 11/17/13 insulin aspart 8 unit SUB-Q TID-Before Meals 11/17/13 insulin aspart 10 unit SUB-Q TID-Before Meals 11/16/13 non-formulary (sumatriptan 100 mg tab) 100 mg PO Daily One Time Meds: None Continuous Infusions: None REVIEW OF SYSTEMS: GEN- Weight gain EYES- Poor vision EARS- Denies erache, discharge NECK- denies neck stiffness CVS- Denies chest pain or LE swelling RESP- Denies SOB/cough ABD- Denies abdominal pain - Denies dysuria, hematuria MSK- + back pain NEURO- + Seizures, headaches, numbness and tingling PSYCH- Depression HEME/LYMPH- Denies bruising or LAD SKIN- No rash ENDO- + hypoglycemia PHYSICAL EXAMINATION: Vital Signs - Reviewed VitalsTmp(F)QulhvWCTQVsQ4YZS3 11/17 09:0296.774225/9316------ 11/16 19:3097.121097/326547--- 11/16 07:5798.372716/9718------ 11/15 19:5097.220952/84-------- 24 Hr Tmax: 97.6F (36.44c) at 11/16 19:30Vital Signs are the last 5 in the past 48 hours. DateWt(kg)Wt(lb)Ht(cm)Ht(in)Method 11/15 (initial) 90.00 198.34407.10 65.00Stated General- Obese Female in NAD HEENT- Patient has lectrodes for VideoEEG unable to examine head, PERRL, MMM Neck- No thyromegaly or nodularity CVS- S1 and S2 RRR, no M/R/G Chest- Lungs CTA Abdomen- Obese, soft, NT, ND Extremities- Trace dedam, pulses + Skin- warm and dry Neuro- Alert and oriented, decreased sensation in LE, poor memory Psych- Is tangential DATA: 24hr Labs 11/17 1719 Glucose EKH994 H 11/17 1141 Glucose JFC644 H ASSESSMENT AND PLAN: 43 year old HF with PMH of DM type 2, orthostatic hypotension, migraines and seizure disorder s/p L anterior temporal lobe resection on 06/04/2011 Currently admitted fro [facility]. Endocrinology consulted due to fluctuating blood glucose levels, including a hypoglycemic episode yon 11/16 with a BG of 39. 1 Diabetes Mellitus type 2 Likely uncontroleld in past has had HbA1c in 11.% in 2011. No recent labs available for review Concerned patient is not reliable to adminsiter inuslin due to poor memory We have discussed with patient and nursing staff that from now on the nurses shallcheck her Bg and administer the inuslin. As per patient mother will come later today and will take inuslin home Due to h/o nightime hypglycemia will split ALntus to 25 units Q12h We have changed her pemeal novolog to 10 units and started on a nedium dose sliding scale We will continu to check BG AC and HS and asssit with inuslin titration. Will send microalbumin, lipid panel and HbA1c Rest of management as per primary team Thank you for this consult Demetria Garcia MD PGY5 Endocrinology, Diabetes and Metabolism Pager Number: [phone] Endocrine Attending Teaching Note: I have interviewed and examined the patient, and I have reviewed the fellow's note and agree with the clinical findings, assessment, and plan. I have discussed the case with Dr. Garcia. We were consulted for uncontrolled DM-2 in a patient with severe seizure disorder. The patient was interviewed in the EMU and had difficulty giving a consistent history and volunteered that her memory was not good enough to remember what I was saying. She had tangential speech pattern. She has had wide fluctuations of glucose in the hospital while administering her own insulin. I agree it is not safe for her to continue to do so and she agrees to allow us to monitor and adjust insulin dosing. She does not know how to CHO count and will have nutrition and DM education see patient. I agree with adjustment in insulin dosing as the patient reports frequent nocturnal hypoglycemia. She is also on fludrocortisone and midodrine but had difficulty relaying why. Will follow with you. Thank you for the consultation. Extracted from: Title: Clinical Document Author: Marina Kingston MD Date: 11/15/13 EMU History and Physical Date of Admission: 11/15/2013 Attending: Dr. Mcbride Referring Attending: Dr. Barros Reason for Admission: Phase I Diagnostic Evaluation HPI: 43 year old HF with PMH of DM (insulin dependent), orthostatic hypotension, migraines and seizure disorder s/p L anterior temporal lobe resection on 06/04/2011 referred here for phase 1 evaluation due to suboptimal control of her seizure activity. Patient had epilepsy surgery on May 2011; she underwent a left anterior temporal lobectomy then was readmitted after 10 days from her surgery with seizures consiting of R ight facial clonus associated with repetitive epileptiform discharges from the left frontocentral region. This second seizure type was treated with medications then patient was discharged and continued to have seizures despite high doses and adding more anticonvulsants. In July 2011 she had another EMU admission that demonstrated that the most recent seizures were psychogenic in nature. She continued to follow with Dr. Camarena and then with Dr. Michaels as outpatient. She is on Vimpat, Zonisamide, Potiga, Gabapentine and still continues to have seizures. She has 2 types: staring spells with eye deviation to the left that ocur daily, lasts for 30-40 sec, with patient looking tired and sleepy after them (sometimes patient respond to arm pinching during these events, per ). The second type is right face twitching with right arm shaking, lasts for 30 sec, and is sleepy after the events; they ocur x3/month. During the second type of seiuzres, patint is able to communicate by movements, but cannot talk. Seizure Hx: Age of Onset: 27 years of age Type 1 (most current): staring spells Duration: 30-40 sec Frequency: 1-2 event/day Auras: None, sometime jhonny vu or "dream like" feeling Incontinence: None Triggers: stress, tired Longest seizure free period: none Injury: None Type 2: CPS, right face twitching and right arm shaking Duration: 30 sec Frequency: x3/month Auras: None Incontinence: None Triggers: None Longest seizure free period: 1 week Injury: falls, bruises Current AEDS/Meds: Vimpat 300 mg BID Zonisamide 400 mg QHS Gabapentin 800 mg Q8hr Potiga 200 mg BID Other Medications: see MAR (migraine meds, ortostatic hypotension meds, depression meds, insulin) Previous AED s: Depakote, Keppra, Tegretol, Dilantin, Lamictal Allergies: morphine ROS: GEN: negative for fever, chills, night sweats, weight loss, fatigue EYES: negative for blurred vision, double vision, eye pain ENT: negative for decreased hearing, nose bleeding, nasal congestion, sore throat CARDIO: negative for chest pain, palpitation, dyspnea on exertion, edema PULM: negative for shortness of breath, cough, wheezing GI: negative for nausea, vomiting, diarrhea, constipation, Ab pain : negative for frequency, dysuria, burning NEURO: positive per HPI, negative for headaches and focal weakness ENDO: negative for thyroid disturbances or diabetes SKIN: negative for birthmarks, rash, lesion MUSC: negative for joint pain, muscle pain, back pain PMhx: Orthostatic hypotension DM Epilepsy PShx: Cholecystectomy, ankle surgery, T and A. FHx: No family history for seizures Social Hx: Lives with . Denies smoking, alcohol or drug use. Physical Exam: Vitals Signs (last 24 hrs) Last Charted Minimum Maximum Temp 98.4 (NOV 15:00)98.4 (NOV 15:)98.4 (NOV 15:) Heart Rate 86 (NOV 15:00)86 (NOV 15:00)86 (NOV 15:00) Resp Rate 18 (NOV 15:)18 (NOV 15:00)18 (NOV 15:) SBP H 142 (NOV 15:)H 142 (NOV 15:00)H 142 (NOV 15:) DBP H 97 (NOV 15:00)H 97 (NOV 15:00)H 97 (NOV 15:) General: - HEENT: NCAT, PERRL, EOMI, MMM - Chest: CTAB, no wheezing - Heart: RRR, no murmurs - Abdomen: soft, NT, ND, naBS - Extremities: no clubbing/cyanosis - Skin: Clear, no rashes. NEURO: - Mental status: Alert awake, NAD - Language: intermittent expressive aphasia and intact comprehension - Vision: Visual campo intact - Cranial Nerves: mild left facial droop (old, after [place] palsy) - Motor: Good strength throughout, Good tone, no asymmetry, no atrophy noted. - Sensory: decreased light touch on the left - Coordination/Tremor/Gait: FTN intact, - Reflexes: DTRs 2+ patellar, 1+ ankle jerk bilateral. Down going toes on plantar reflexes. 24hr Labs 11/15 1339 U PregNegative Glucose Gft850 H BUN17 Creatinine Lvl0.8 Sodium Ooa914 Potassium Lvl3.2 L Chloride Snc283 CO228 AGAP13.2 Calcium Lvl8.8 eGFR91 Total Protein6.6 Albumin Lvl4.0 Bili Total0.5 Bili Direct0.3 Bili Indirect0.2 Alk Ozit796 AST13 ALT24 Globulin2.6 A/G Ratio1.5 WBC4.7 RBC4.41 Hgb14.3 Hct41.2 MCV93.3 MCH32.4 H MCHC34.7 RDW13.1 Pwnthjnj697 MPV8.7 Segs73.5 Monocytes5.5 Reqgghfvtiu08.0 Segs-Bands #3.4 Lymphocytes #1.0 Monocytes #0.3 Diagnostic Tests: MRI Brain - Routine EEG - Prolonged EEG - Neuropsych Testing - Assessment: 43 year old HF with seizure disorder s/p L anterior temporal lobe resection on 06/04/2011 referred here for phase 1 evaluation due to suboptimal control of her seizure activity. Plan: - Admit to Adult EMU - continuous vEEG monitoring - MRI Brain wo contrast epilepsy protocol - Neuropsychiatric evaluation - Continue current anticonvulsants today, will adjust accordingly tomorrow - Obtain routine labs and anticonvulsant levels Patient will be staffed in the morning by Adult EMU attending. Marina Kingston MD PGY 3 Pediatric Neurology Fellow Patient seen and examined with Dr. Kingston. I agree with her documented findings and care. In [facility] patient is a 43 yo s/p L aterior temporal lobe resection in 2011 with continued seizures post op althrough seizure semiology is different than inital presentation. She has had 2 evaluations post op one that demonstrated facial twitching with assoicated epielptiform discharges, and the other which showed non epileptic events. Patient has recently transitioned to Dr. Michaels and is here for further characterization of her seizures. Will continue to monitor her multiple events to better characterize her current events. No medications changed as patient continues to have events while on 4 different medications. Codes: [phone] Angelica Mcbride MD EMU Attending
--- OUTSIDE RECORDS SUMMARY | 2018-07-18 08:43 | XMS REPORT ---
Author Author Shan Be [facility] [employer] Address Unknown Phone Unavailable Care Team Providers Care Dock Clerk Name Role Phone Shan Be Unavailable Allergies [...]
--- OUTSIDE RECORDS SUMMARY | 2018-07-18 08:43 | XMS REPORT ---
Author Author Julio C Minor Organization [employer] Address Unknown Phone Unavailable Care Team Providers Care Marketing Operations Assistant Name Role Phone Julio C Minor CP [...]
--- OUTSIDE RECORDS SUMMARY | 2018-07-18 08:43 | XMS REPORT ---
Author Author Shan Be [facility] [employer] Address Unknown Phone Unavailable Care Team Providers Care Hose Inspector Name Role Phone Shan Be CP Unavailable Allergies No Known Allergies Problems [...] Medications Results No Known Results Summary Purpose [employer] Submission
--- OUTSIDE RECORDS SUMMARY | 2018-07-18 08:43 | XMS REPORT ---
Author Author Ashok Alex Organization [employer] Address Unknown Phone Unavailable Care Team Providers Care Finishing Operator Name Role Phone Ashok Alex CP Unavailable Allergies No Known Allergies Problems [...]
--- OUTSIDE RECORDS SUMMARY | 2018-07-18 08:43 | XMS REPORT ---
Author Author Ashok Alex Organization [employer] Address Unknown Phone Unavailable Care Team Providers Care Masking Machine Operator Name Role Phone Ashok Alex CP [...]
--- OUTSIDE RECORDS SUMMARY | 2018-07-18 08:43 | XMS REPORT ---
Author Author Shan Be [facility] [employer] Address Unknown Phone Unavailable Care Team Providers Care Dental Professional Name Role Phone Shan Be Unavailable Allergies [...]
--- OUTSIDE RECORDS SUMMARY | 2018-07-18 08:43 | XMS REPORT ---
Author Author Julio C Minor Organization [employer] Address Unknown Phone Unavailable Care Team Providers Care Healthcare Consultant Name Role Phone Julio C Minor CP [...]
--- OUTSIDE RECORDS SUMMARY | 2018-07-18 08:43 | XMS REPORT ---
Author Author Cindi Delacruz Organization eClinicalWorks Address Unknown Phone Unavailable Care Team Providers Care Traffic Recorder Name Role Phone Cindi Delacruz CP Unavailable Allergies No Known Allergies Problems [...]
--- OUTSIDE RECORDS SUMMARY | 2018-07-18 08:43 | XMS REPORT ---
Author Author Shan Be [facility] eClinicalWorks Address Unknown Phone Unavailable Care Team Providers Care Striper Name Role Phone Shan Be Unavailable Allergies [...] Active Problem Essential (primary) hypertension I10 Active Assessment Type 2 diabetes mellitus with hyperglycemia E11.65 Active Problem Type 2 diabetes mellitus without complications E11.9 Active Problem Low back pain M54.5 Active Problem Schizophrenia, unspecified F20.9 Active Medications Medication Code System Code Instructions Start Date End Date Status Dosage Meclizine HCl [facility] 26457300281 25 MG Orally Once a day Active 1 tablet as needed Results No Known Results Summary Purpose eClinicalWorks Submission
--- OUTSIDE RECORDS SUMMARY | 2018-07-18 08:43 | XMS REPORT ---
Author Author Shan Be [facility] eClinicalWorks Address Unknown Phone Unavailable Care Team Providers Care Nurse Midwife/Clinical Instructor Name Role Phone Shan Be CP Unavailable [...]
--- OUTSIDE RECORDS SUMMARY | 2018-07-18 08:43 | XMS REPORT ---
Author Author Shan Be Organization [employer]Clinical[employer] Address Unknown Phone Unavailable Care Team Providers Care Inserting Machine Operator Name Role Phone Shan Be Unavailable Allergies No Known Allergies Problems Problem Type Condition Code Onset Dates Condition Status Problem Hypothyroidism, unspecified E03.9 Active Problem Essential (primary) hypertension I10 Active Problem Type 2 diabetes mellitus with hyperglycemia E11.65 Active Problem Chronic pain syndrome G89.4 Active Problem Type 2 diabetes mellitus with diabetic neuropathy, unspecified E11.40 Active Problem Type 2 diabetes mellitus with other diabetic neurological complication E11.49 Active Problem Unspecified convulsions R56.9 Active Problem Dizziness and giddiness R42 Active Problem 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
--- OUTSIDE RECORDS SUMMARY | 2018-07-18 08:43 | XMS REPORT ---
Author Author Julio C Minor [facility] eClinicalWorks Address Unknown Phone Unavailable Care Team Providers Care Teacher Assistant Name Role Phone Julio C Minor [...]
--- OUTSIDE RECORDS SUMMARY | 2018-07-18 08:43 | XMS REPORT ---
Author Author Shan Be [facility] eClinicalWorks Address Unknown Phone Unavailable Care Team Providers Care Layout Worker Name Role Phone Shan Be Unavailable Allergies [...] diabetes mellitus without complications E11.9 Active Medications Medication Code System Code Instructions Start Date End Date Status Dosage OneTouch Ultra Mini [facility] [address]-12 w/Device to check blood sugars July 16, 2016 Active use as directed Results No Known Results Summary Purpose eClinicalWorks Submission
--- OUTSIDE RECORDS SUMMARY | 2018-07-18 08:43 | XMS REPORT ---
Author Author Julio C Minor [facility] eClinicalWorks Address Unknown Phone Unavailable Care Team Providers Care Salesperson Flowers Name Role Phone Julio C Minor CP Unavailable Allergies, Adverse Reactions, Alerts Substance Reaction Event Type januvia itching Drug Allergy Keflex Info Not Available Drug Allergy Fanapt Info Not Available Drug Allergy Morphine Sulfate Info Not Available Drug Allergy Lyrica Info Not Available Drug Allergy Problems Problem Type Condition Code Onset Dates [...] Problem Essential (primary) hypertension I10 Active Assessment Urinary tract infection, site not specified N39.0 Active Problem Type 2 diabetes mellitus without complications E11.9 Active Problem Low back pain M54.5 Active Problem Schizophrenia, unspecified F20.9 Active Medications Medication Code System Code Instructions Start Date End Date Status Dosage Melatonin [facility] 22472328906 10 MG Orally daily as needed Active 4 tablets OneTouch Ultra Mini [facility] 59319338480 w/Device to check blood sugars July 16, 2016 Active use as directed Victoza [facility] 05893686203 18 MG/3ML Subcutaneous Once a day October 17, 2016 Jan 15, 2017 Active 0.6mg for the first week and then 1.2mg Clonazepam [facility] 60881628583 0.5 Active TAKE 1 TABLET BY MOUTH TWICE DAILY Meloxicam [facility] 49370696820 15 Orally daily Active take 1 tablet once a day orally Duloxetine HCl [facility] 61145242884 60 MG Orally Once a day at bedtime Active 2 capsule Invokana [facility] 61147124740 300 MG by mouth Once a day Active 1 tablet BD Pen Needle Ines U/F [facility] 29834516382 32G X 4 MM subcutaneously four times a day (qid) August 09, 2013 Active as directed Blood Glucose Test [facility] 49907104454 . subcutaneously three times a day (tid) October 20, 2013 Active as directed Midodrine HCl [facility] 10852328150 2.5 Active TAKE 1 TABLET BY MOUTH THREE TIMES DAILY Tramadol [facility] 72160214096 50 mg orally three times a day (tid) as needed (prn) July 09, 2016 Active 1 tablet One Daily For Women [facility] 56757976919 Orally Active not defined Sudafed 12 Hour [facility] 12639330815 120 MG Orally every 12 hrs Active 1 tablet as needed Fanapt [facility] 14231649700 2 MG Orally Twice a day Active 1 tablet Hydrocortisone [facility] 40850851552 1 % Externally Twice a day September 30, 2014 Active 1 application to affected area Mobic [facility] 98836643209 15 Orally Once a day Active 1 tablet Lancets [facility] 73589832988 . verio three times a day (tid) Active as directed Levaquin [facility] 32869656776 500 mg Orally Once a day Feb 24, 2015 Active 1 tablet Vimpat [facility] 64767167755 100 Active TAKE 2 TABLETS BY MOUTH TWICE DAILY Humalog KwikPen [facility] 21557314542 100 UNIT/ML Subcutaneous three times a day (tid) Active inject 20 units (slidingscale) Tresiba FlexTouch [facility] 19392553367 200 UNIT/ML Subcutaneous once a day Active 40 units Zofran [facility] 63467478710 4 mg Orally Once a day Active 1 tablet Diclofenac Sodium [facility] 89359439372 75 MG Orally Twice a day Active 1 tablet Estroven Weight Management [facility] 53795409922 Orally Active not defined Victoza [facility] 12763728469 18 MG/3ML Subcutaneous Once a day Active 0.6mg for the first week and 1.2mg Gabapentin [facility] 86477380951 300 Active TAKE ONE CAPSULE BY MOUTH THREE TIMES DAILY Duloxetine HCl [facility] 76740858692 60 Orally Once a day at bedtime Active 2 capsule Duloxetine HCl [facility] 80899655296 60 MG Orally Once a day at bedtime Active 2 capsule Zonisamide [facility] 72634915710 100 MG Active 4 CAPSULE ONCE A DAY AT BEDTIME ORALLY 90 DAYS Meclizine HCl [facility] 96347485408 25 MG Orally Once a day Active 1 tablet as needed Unisom PM Pain [facility] 47462442900 50-325 MG Orally Active not defined Diclofenac Sodium [facility] 61817723469 75 Active TAKE 1 TABLET BY MOUTH TWICE DAILY Ondansetron [facility] 20218784074 4 MG Orally every 8 hrs Active 1 tablet on the tongue and allow to dissolve Lorazepam [facility] 38485532751 1 MG Orally NEEDED Active 1 tablet OneTouch Ultra Test [facility] 27956425526 0 Active USE DIRECTED THREE TIMES DAILY Vimpat [facility] 82417050737 100 MG Orally Twice a day Active 2 tablet Escitalopram Oxalate [facility] 15408847781 20 MG Orally Once a day Active 1 tablet Lyrica [facility] 49913855910 225 MG Orally Twice a day Active 1 capsule Cymbalta [facility] 70667859842 60 MG Orally Once a day Active 1 capsule Clonazepam [facility] 14381955071 0.5 MG Orally Twice a day Active 1 tablet Lantus SoloStar [facility] [address]-85 100 Subcutaneous daily Active 18-20 units (slidingscale) Vital Signs Date/Time: Dec 18, 2016 BMI 32.45 Index Weight 195 lbs Blood Pressure Systolic 126 mm Hg Respiratory Rate 16 /min Cardiac Monitoring Heart Rate 94 /min Temperature 99.2 F Blood Pressure Diastolic 89 mm Hg Results No Known Results Summary Purpose eClinicalWorks Submission
--- OUTSIDE RECORDS SUMMARY | 2018-07-18 08:43 | XMS REPORT ---
Author Author Shan Be [facility] eClinicalWorks Address Unknown Phone Unavailable Care Team Providers Care Wood Calker Name Role Phone Shan Be CP Unavailable Allergies, Adverse Reactions, Alerts Substance Reaction Event Type Fanapt Info Not Available Drug Allergy Morphine Sulfate Info Not Available Drug Allergy Lyrica Info Not Available Drug Allergy Problems Problem Type Condition Code Onset Dates Condition Status Assessment Hypothyroidism, unspecified E03.9 Active Problem Hypothyroidism, unspecified E03.9 Active Assessment Type 2 diabetes mellitus with hyperglycemia E11.65 Active Problem Schizophrenia, unspecified F20.9 Active Problem [...] Instructions Start Date End Date Status Dosage Lantus SoloStar [facility] [address]-23 100 Subcutaneous daily Active 18-20 units (slidingscale) Estroven Weight Management [facility] [address] Orally Active not defined Duloxetine HCl [facility] 89156382427 60 MG Orally Once a day at bedtime Active 2 capsule BD Pen Needle Ines U/F [facility] 8290-257993 32G X 4 MM subcutaneously four times a day (qid) August 09, 2013 Active as directed Escitalopram Oxalate [facility] [address]-19 20 MG Orally Once a day Active 1 tablet Clonazepam [facility] [address]-78 0.5 MG Orally Twice a day Active 1 tablet Mobic [facility] 97755398680 15 Orally Once a day Active 1 tablet Hydrocortisone [facility] [address]-04 1 % Externally Twice a day September 30, 2014 Active 1 application to affected area Lorazepam [facility] [address]-03 1 MG Orally NEEDED Active 1 tablet Melatonin [facility] 460[address] 10 MG Orally daily as needed Active 4 tablets Gabapentin [facility] 98534663847 300 Orally Three times a day Active 1 capsule Midodrine HCl [facility] [address]-25 2.5 MG Orally Three times a day Active 1 tablet OneTouch Ultra Test [facility] 84965197435 0 Active USE DIRECTED THREE TIMES DAILY Zonisamide [facility] 53701011627 100 MG Active 4 CAPSULE ONCE A DAY AT BEDTIME ORALLY 90 DAYS Vimpat [facility] [address]-50 100 MG Orally Twice a day Active 2 tablet Sudafed 12 Hour [facility] [address]-11 120 MG Orally every 12 hrs Active 1 tablet as needed Zofran [facility] 76619185570 4 mg Orally Once a day Active 1 tablet Unisom PM Pain [facility] [address]10 50-325 MG Orally Active not defined Levaquin [facility] [address]-13 500 mg Orally Once a day Feb 24, 2015 Active 1 tablet One Daily For Women [facility] [address] Orally Active not defined Lancets [facility] 8193-947498 . verio three times a day (tid) Active as directed Diclofenac Sodium [facility] 99770786944 75 Active TAKE 1 TABLET BY MOUTH TWICE DAILY Januvia [facility] [address]-22 100 MG Orally Once a day Jun 07, 2016 Active 1 tablet Tradjenta [facility] 49897607143 5 Inactive TAKE 1 TABLET BY MOUTH ONCE DAILY Victoza [facility] 94846088425 18 MG/3ML Subcutaneous Once a day Active 0.6mg for the first week and 1.2mg Humalog KwikPen [facility] [address]-67 100 UNIT/ML Subcutaneous three times a day (tid) Active inject 20 units (slidingscale) Cymbalta [facility] 85901727465 60 MG Orally Once a day Active 1 capsule Lyrica [facility] [address]-18 225 MG Orally Twice a day Active 1 capsule Tresiba FlexTouch [facility] [address]-52 200 UNIT/ML Subcutaneous once a day Active 40 units Ondansetron [facility] [address]-83 4 MG Orally every 8 hrs Active 1 tablet on the tongue and allow to dissolve Duloxetine HCl [facility] [address]-35 60 MG Orally Once a day at bedtime Active 2 capsule Invokana [facility] [address]-08 300 MG by mouth Once a day Active 1 tablet Blood Glucose Test [facility] [address] . subcutaneously three times a day (tid) October 20, 2013 Active as directed Fanapt [facility] [address]-62 2 MG Orally Twice a day Active 1 tablet Meclizine HCl [facility] [address]-18 25 MG Orally Once a day prn Active 1 tablet as needed Propranolol HCl [facility] 16835761571 20 mg Orally Twice a day Active 1 tablet Diclofenac Sodium [facility] [address]-86 75 MG Orally Twice a day Active 1 tablet Vital Signs Date/Time: Jun 24, 2016 BMI 38.04 Index Weight 228.6 lbs Blood Pressure Systolic 108 mm Hg Respiratory Rate 16 /min Cardiac Monitoring Heart Rate 100 /min Temperature 96.7 F Blood Pressure Diastolic 70 mm Hg Results No Known Results Summary Purpose eClinicalWorks Submission
--- OUTSIDE RECORDS SUMMARY | 2018-07-18 08:43 | XMS REPORT ---
Author Author Julio C Minor [facility] eClinicalWorks Address Unknown Phone Unavailable Care Team Providers Care Paint Process Engineer Name Role Phone Julio C Minor CP [...]
--- OUTSIDE RECORDS SUMMARY | 2018-07-18 08:43 | XMS REPORT ---
Author Author Shan Be Organization eClinicalWorks Address Unknown Phone Unavailable Care Team Providers Care Document Preparation Specialist Name Role Phone Shan Be Unavailable Allergies [...] Problem Chest pain on breathing R07.1 Active Assessment Type 2 diabetes mellitus with hyperglycemia E11.65 Active Problem Low back pain M54.5 Active Problem Type 2 diabetes mellitus without complications E11.9 Active Problem Schizophrenia, unspecified F20.9 Active Medications Medication Code System Code Instructions Start Date End Date Status Dosage Victoza [facility] 22318999096 18 MG/3ML Subcutaneous Once a day July 11, 2017 Active 1.2 mg Results No Known Results Summary Purpose eClinicalWorks Submission
--- OUTSIDE RECORDS SUMMARY | 2018-07-18 08:43 | XMS REPORT ---
Author Author Shan Be [facility] eClinicalWorks Address Unknown Phone Unavailable Care Team Providers Care Manufacturing Quality Manager Name Role Phone Shan Be Unavailable Allergies [...] Instructions Start Date End Date Status Dosage Tramadol [facility] [address]-00 50 mg orally three times a day (tid) as needed (prn) July 09, 2016 Active 1 tablet Results No Known Results Summary Purpose eClinicalWorks Submission
--- OUTSIDE RECORDS SUMMARY | 2018-07-18 08:44 | XMS REPORT ---
Author Author Shan Be [employer]Clinical[employer] Address Unknown Phone Unavailable Care Team Providers Care Strip Deburrer Name Role Phone Shan Be CP Unavailable Encounters Encounter Location Date Question LM 02/23, 02/24 [facility] Feb 16, 2015 rx for pain/ lower extremeties - refilled/faxed/notified [facility] September 29, 2015 other [facility] Jun 05, 2015 Prescriptions - faxed [facility] Jun 06, 2015 vimpat refill [facility] Apr 24, 2015 Needs call back from Medical Staff- no answer [facility] May 02, 2015 Gabapentin refill request [facility] Mar 21, 2015 Question - done [facility] Mar 14, 2015 [facility] Rx- faxed [facility] Mar 10, 2015 Meclizine refill request [facility] Mar 10, 2015 Drug Be Request - refilled/changed [facility] Jun 08, 2015 Needs call back from Medical Staff- No answer [facility] Jan 19, 2015 Question- Done [facility] Jan 26, 2015 Medication Clarification Needed- Done [facility] Feb 02, 2015 reschedule appt LM 02/09 [facility] Feb 08, 2015 Invokana refilled 30X2 [facility] Dec 28, 2014 refill [facility] Jan 05, 2015 Scheduling - Done [facility] Jan 05, 2015 [facility] Approved/Faxed - notified [facility] Jun 23, 2015 Fanapt Approved/Faxed - done [facility] Jun 09, 2015 lantus refilled [facility] Feb 13, 2015 test strips refilled 30X5 [facility] Feb 14, 2015 Body Swollen - called [facility] August 24, 2015 Bakari PA - fax addit. info [facility] August 25, 2015 Urgent labs [facility] September 01, 2015 PA Status - not needed/notified [facility] September 08, 2015 NO BM & sugars in 400's [facility] Jun 26, 2015 Prescribe medicince for UTI/ Symptoms W/diarrhea & weight gain- done [facility] July 05, 2015 Sugars up 400's/Legs Swelling (#) [facility] August 18, 2015 Clonazepam Refill Request - refilled/faxed [facility] August 17, 2015 Problems Problem Type Condition ICD-9 Code Onset Dates Condition Status Problem Hypothyroidism, [...] Start Date End Date Status Dosage Tramadol HCl [facility] [address]-46 50 mg Orally every 6 hrs October 02, 2015 November 01, 2015 Active 1 tablet as needed Social History Social History Element Qualifiers Date Reported Use of recreational / street drugs? no. September 07, 2015 Tobacco Use: . Patient is a: never smoker September 07, 2015 Do you have pets? yes. dogs September 07, 2015 Marital Status: . September 07, 2015 Caffeine intake? normal. Status: Yes, What type: Soft Drinks September 07, 2015 exercise: no. September 07, 2015 Alchohol: no. September 07, 2015 Summary Purpose eClinicalWorks Submission
--- OUTSIDE RECORDS SUMMARY | 2018-07-18 08:44 | XMS REPORT ---
Author Author Shan Be [employer]Clinical[employer] Address Unknown Phone Unavailable Care Team Providers Care Slot Machine Mechanic Name Role Phone Shan Be CP Unavailable Encounters Encounter Location Date Question LM 02/23, 02/24 [facility] Feb 16, 2015 Trelisa FlexTouch PA Approved - faxed/notified [facility] October 26, 2015 Meclizine Refill Request - refilled [facility] October 18, 2015 rx for pain/ lower extremeties - refilled/faxed/notified [facility] September 29, 2015 other [facility] Jun 05, 2015 Prescriptions - faxed [facility] Jun 06, 2015 Tramodol Refill Request - refilled [facility] November 07, 2015 vimpat refill [facility] Apr 24, 2015 Needs call back from Medical Staff- no answer [facility] May 02, 2015 Gabapentin refill request [facility] Mar 21, 2015 Question - done [facility] Mar 14, 2015 [facility] Rx- faxed [facility] Mar 10, 2015 Meclizine refill request [facility] Mar 10, 2015 Drug Be Request - refilled/changed [facility] Jun 08, 2015 Needs call back from Medical Staff- No answer [facility] Jan 19, 2015 Question- Done [facility] Jan 26, 2015 Medication Clarification Needed- Done [facility] Feb 02, 2015 reschedule appt LM 02/09 [facility] Feb 08, 2015 Invokana refilled 30X2 [facility] Dec 28, 2014 refill [facility] Jan 05, 2015 Scheduling - Done [facility] Jan 05, 2015 Tradjenta PA Approved/Faxed - notified [facility] Jun 23, 2015 Fanapt Approved/Faxed - done [facility] Jun 09, 2015 lantus refilled [facility] Feb 13, 2015 test strips refilled 30X5 [facility] Feb 14, 2015 Body Swollen - called [facility] August 24, 2015 Tresiba PA - fax addit. info [facility] August 25, 2015 Urgent labs [facility] September 01, 2015 PA Status - not needed/notified [facility] September 08, 2015 NO BM & sugars in 400's [facility] Jun 26, 2015 Prescribe medicince for UTI/ Symptoms W/diarrhea & weight gain- done [facility] July 05, 2015 Sugars up 400's/Legs Swelling (#) [facility] August 18, 2015 Clonazepam Refill Request - refilled/faxed [facility] August 17, 2015 Problems Problem Type Condition [...] Date End Date Status Dosage Tramadol HCl [facility] [address]-33 50 mg Orally three times a day (tid) as needed (prn) November 09, 2015 Dec 09, 2015 Active as directed Social History Social History Element Qualifiers Date [...]
--- OUTSIDE RECORDS SUMMARY | 2018-07-18 08:44 | XMS REPORT ---
Author Author Shan Be [employer] Address Unknown Phone Unavailable Care Team Providers Care Underwear Cutter Name Role Phone Shan Be CP Unavailable Encounters Encounter Location Date Question LM 02/23, 02/24 [facility] Feb 16, 2015 other [facility] Jun 05, 2015 Prescriptions - faxed [facility] Jun 06, 2015 vimpat refill [facility] Apr 24, 2015 Needs call back from Medical Staff- no answer [facility] May 02, 2015 Gabapentin refill request [facility] Mar 21, 2015 Question - done [facility] Mar 14, 2015 [facility] Rx- faxed [facility] Mar 10, 2015 Meclizine refill request [facility] Mar 10, 2015 Drug Be Request - refilled/changed [facility] Jun 08, 2015 Needs call back from Medical Staff- No answer [facility] Jan 19, 2015 Question- Done [facility] Jan 26, 2015 Medication Clarification Needed- Done [facility] Feb 02, 2015 reschedule appt LM 02/09 [facility] Feb 08, 2015 Invokana refilled 30X2 [facility] Dec 28, 2014 refill [facility] Jan 05, 2015 Scheduling - Done [facility] Jan 05, 2015 Tradkristine [facility] Approved/Faxed - notified [facility] Jun 23, 2015 Fanapt Approved/Faxed - done [facility] Jun 09, 2015 lantus refilled [facility] Feb 13, 2015 test strips refilled 30X5 [facility] Feb 14, 2015 Body Swollen - called [facility] August 24, 2015 Bakari OQEUNDO - fax addit. info [facility] August 25, 2015 Urgent labs [facility] September 01, 2015 PA Status - not needed/notified [facility] September 08, 2015 NO BM & sugars in 400's [facility] Jun 26, 2015 Prescribe medicince for UTI/ Symptoms W/diarrhea & weight gain- done [facility] July 05, 2015 Sugars up 400's/Legs Swelling (#) [facility] August 18, 2015 Clonazepam Refill Request - refilled/faxed [facility] August 17, 2015 Problems Problem Type Condition [...] 2 diabetes mellitus without complications E11.9 Active Social History Social History Element Qualifiers Date [...]
--- OUTSIDE RECORDS SUMMARY | 2018-07-18 08:44 | XMS REPORT ---
Author Author Shan Be [employer] Address Unknown Phone Unavailable Care Team Providers Care Superintendent General Name Role Phone Shan Be CP Unavailable Encounters Encounter Location Date Question LM 02/23, 02/24 [facility] Feb 16, 2015 Tresiba FlexTouch [facility] Approved - faxed/notified [facility] October 26, 2015 Meclizine Refill Request - refilled [facility] October 18, 2015 rx for pain/ lower extremeties - refilled/faxed/notified [facility] September 29, 2015 other [facility] Jun 05, 2015 Prescriptions - faxed [facility] Jun 06, 2015 vimpat refill [facility] Apr 24, 2015 Needs call back from Medical Staff- no answer [facility] May 02, 2015 Gabapentin refill request [facility] Mar 21, 2015 Question - done [facility] Mar 14, 2015 [facility] Rx- faxed [facility] Mar 10, 2015 Meclizine refill request [facility] Mar 10, 2015 Drug Be Request - refilled/changed [facility] Jun 08, 2015 Needs call back from Medical Staff- No answer [facility] Jan 19, 2015 Question- Done [facility] Jan 26, 2015 Medication Clarification Needed- Done [facility] Feb 02, 2015 reschedule appt LM 02/09 [facility] Feb 08, 2015 Invokana refilled 30X2 [facility] Dec 28, 2014 refill [facility] Jan 05, 2015 Scheduling - Done [facility] Jan 05, 2015 Tradjenta [facility] Approved/Faxed - notified [facility] Jun 23, 2015 Fanapt Approved/Faxed - done [facility] Jun 09, 2015 lantus refilled [facility] Feb 13, 2015 test strips refilled 30X5 [facility] Feb 14, 2015 Body Swollen - called [facility] August 24, 2015 Tresiba PA - fax addit. info [facility] August 25, 2015 Urgent labs [facility] September 01, 2015 PA Status - not needed/notified [facility] September 08, 2015 NO BM & sugars in 400's [facility] Jun 26, 2015 Prescribe medicince for UTI/ Symptoms W/diarrhea & weight gain- done [facility] July 05, 2015 Sugars up 400's/Legs Swelling (#) [facility] August 18, 2015 Clonazepam Refill Request - refilled/faxed [facility] August 17, 2015 Problems Problem Type [...] Instructions Start Date End Date Status Dosage tresiba Unknown 0 100 units/mL subcutaneous once a day August 21, 2015 Dec 19, 2015 Active 60 units Invokana [facility] [address]-83 300 MG by mouth Once a day Active 1 tablet Mobic [facility] 71549705325 15 Orally Once a day Active 1 tablet Estroven Weight Management [facility] 74482-95290 Orally Active Unknown Midodrine HCl [facility] [address]-15 2.5 MG Orally THREE TIMES A DAY Active 1 tablet Humalog KwikPen [facility] [address]-95 100 subcutaneously three times a day (tid) Active INJECT 20 UNITS BEFORE MEALS Tramadol HCl [facility] [address]-23 50 mg Orally every 6 hrs October 02, 2015 November 01, 2015 Active 1 tablet as needed Zofran [facility] 27461261672 4 mg Orally Once a day Active 1 tablet Melatonin [facility] 22692-32593 10 MG Orally daily as needed Active 4 tablets Propranolol HCl [facility] 39447709476 20 mg Orally Twice a day Active 1 tablet Tradjenta [facility] 24988299958 5 MG Orally Once a day Active take 1 tablet by mouth once a day Cymbalta [facility] 65692736010 60 MG Orally Once a day Active 1 capsule Meclizine HCl [facility] [address]-91 25 MG Orally Once a day Active 1 tablet as needed Victoza [facility] [address]-20 18 MG/3ML Subcutaneous Once a day September 07, 2015 Mar 05, 2016 Active 0.6mg for the first week and 1.2mg One Daily For Women [facility] 30962-37350 Orally Active Unknown One touch ultra test strips Unknown 0 . verio three times a day (tid) November 04, 2015 Active as directed Levaquin [facility] [address]-30 500 mg Orally Once a day Feb 24, 2015 Active 1 tablet Gabapentin [facility] [address]-51 300 MG Orally Three times a day Feb 01, 2015 Active 1 capsule Sudafed 12 Hour [facility] [address]-67 120 MG Orally every 12 hrs Active 1 tablet as needed Lyrica [facility] [address]-90 225 MG Orally Twice a day Active 1 capsule Meloxicam [facility] 13128967258 15 MG Orally daily Active take 1 tablet once a day orally Unisom PM Pain [facility] 31676-39869 50-325 MG Orally Active Unknown Lorazepam [facility] [address]-23 1 MG Orally NEEDED Active 1 tablet Ondansetron [facility] [address]-16 4 mg Orally every 8 hrs Active 1 tablet on the tongue and allow to dissolve Escitalopram Oxalate [facility] [address]-81 20 MG Orally Once a day Active 1 tablet Clonazepam [facility] [address]-00 0.5 MG Orally Twice a day Active 1 tablet Hydrocortisone [facility] [address]-23 1 % Externally Twice a day September 30, 2014 Active 1 application to affected area Duloxetine HCl [facility] [address]-21 60 MG Orally Once a day at bedtime Active 2 capsule Lancets [facility] 8193-963421 . verio three times a day (tid) Active as directed Lantus SoloStar [facility] [address]-87 100 Subcutaneous as needed (prn) Active 18-20 units (slidingscale) BD Pen Needle Ines U/F [facility] 8290-019657 32G X 4 MM subcutaneously four times a day (qid) August 09, 2013 Active as directed Fanapt [facility] [address]-04 2 MG Orally Twice a day Active 1 tablet Zonisamide [facility] [address]-89 100 mg Orally Once a day at bedtime Active 4 capsule Blood Glucose Test [facility] 67642-79665 . subcutaneously three times a day (tid) October 20, 2013 Active as directed Vimpat [facility] [address]-90 100 mg Orally Twice a day Active 2 tablet Social History Social History Element Qualifiers Date [...]
--- OUTSIDE RECORDS SUMMARY | 2018-07-18 08:44 | XMS REPORT ---
Author Author Shan Be [employer] Address Unknown Phone Unavailable Care Team Providers Care Water Systems Designer Name Role Phone Shan Be CP Unavailable Encounters Encounter Location Date Question LM 02/23, 02/24 [facility] Feb 16, 2015 other [facility] Jun 05, 2015 Prescriptions - faxed [facility] Jun 06, 2015 vimpat refill [facility] Apr 24, 2015 Needs call back from Medical Staff- no answer [facility] May 02, 2015 Gabapentin refill request [facility] Mar 21, 2015 Question - done [facility] Mar 14, 2015 [facility] Rx- faxed [facility] Mar 10, 2015 Meclizine refill request [facility] Mar 10, 2015 Drug Be Request - refilled/changed [facility] Jun 08, 2015 Needs call back from Medical Staff- No answer [facility] Jan 19, 2015 Question- Done [facility] Jan 26, 2015 Medication Clarification Needed- Done [facility] Feb 02, 2015 reschedule appt LM 02/09 [facility] Feb 08, 2015 Invokana refilled 30X2 [facility] Dec 28, 2014 refill [facility] Jan 05, 2015 Scheduling - Done [facility] Jan 05, 2015 Tradjenta [facility] Approved/Faxed - notified [facility] Jun 23, 2015 Fanapt Approved/Faxed - done [facility] Jun 09, 2015 lantus refilled [facility] Feb 13, 2015 test strips refilled 30X5 [facility] Feb 14, 2015 NO BM & sugars in 400's [facility] Jun 26, 2015 Prescribe medicince for UTI/ Symptoms W/diarrhea & weight gain- done [facility] July 05, 2015 Sugars up 400's/Legs Swelling (#) [facility] August 18, 2015 Clonazepam Refill Request - refilled/faxed [facility] August 17, 2015 Problems Problem Type [...] Instructions Start Date End Date Status Dosage Clonazepam [facility] [address]-80 0.5 MG Orally Twice a day Active 1 tablet Social History Social History Element Qualifiers Date Reported Use of recreational / street drugs? no. Jun 05, 2015 Tobacco Use: . Patient is a: never smoker Jun 05, 2015 Do you have pets? yes. dogs Jun 05, 2015 Marital Status: . Jun 05, 2015 Caffeine intake? normal. Status: Yes, What type: Soft Drinks Jun 05, 2015 exercise: no. Jun 05, 2015 Alchohol: no. Jun 05, 2015 Summary Purpose eClinicalWorks Submission
--- OUTSIDE RECORDS SUMMARY | 2018-07-18 08:44 | XMS REPORT ---
Author Author Shan Be [employer] Address Unknown Phone Unavailable Care Team Providers Care Pan Cleaner Name Role Phone Shan Be CP Unavailable Encounters Encounter Location Date Needs call back from Medical Staff- No answer [facility] Jan 19, 2015 Question- Done [facility] Jan 26, 2015 Medication Clarification Needed- Done [facility] Feb 02, 2015 reschedule appt LM 02/09 [facility] Feb 08, 2015 Invokana refilled 30X2 [facility] Dec 28, 2014 refill [facility] Jan 05, 2015 Scheduling - Done [facility] Jan 05, 2015 Question LM 02/23, 02/24 [facility] Feb 16, 2015 Woody PA Approved/Faxed - notified [facility] Jun 23, 2015 Fanapt Approved/Faxed - done [facility] Jun 09, 2015 lantus refilled [facility] Feb 13, 2015 test strips refilled 30X5 [facility] Feb 14, 2015 other [facility] Jun 05, 2015 Prescriptions - faxed [facility] Jun 06, 2015 vimpat refill [facility] Apr 24, 2015 Needs call back from Medical Staff- no answer [facility] May 02, 2015 NO BM & sugars in 400's [facility] Jun 26, 2015 Gabapentin refill request [facility] Mar 21, 2015 Question - done [facility] Mar 14, 2015 [facility] Rx- faxed [facility] Mar 10, 2015 Meclizine refill request [facility] Mar 10, 2015 Drug Be Request - refilled/changed [facility] Jun 08, 2015 Problems Problem Type Condition ICD-9 Code [...]
--- OUTSIDE RECORDS SUMMARY | 2018-07-18 08:44 | XMS REPORT ---
Author Author Shan Be [employer] Address Unknown Phone Unavailable Care Team Providers Care Coach Driver Name Role Phone Shan Be CP Unavailable Encounters Encounter Location Date Question LM 02/23, 02/24 [facility] Feb 16, 2015 other [facility] Jun 05, 2015 Prescriptions - faxed [facility] Jun 06, 2015 vimpat refill [facility] Apr 24, 2015 Needs call back from Medical Staff- no answer [facility] May 02, 2015 Gabapentin refill request [facility] Mar 21, 2015 Question - done [facility] Mar 14, 2015 [facility] Rx- faxed [facility] Mar 10, 2015 Meclizine refill request [facility] Mar 10, 2015 Drug Be Request - refilled/changed [facility] Jun 08, 2015 Needs call back from Medical Staff- No answer [facility] Jan 19, 2015 Question- Done [facility] Jan 26, 2015 Medication Clarification Needed- Done [facility] Feb 02, 2015 reschedule appt LM 02/09 [facility] Feb 08, 2015 Invokana refilled 30X2 [facility] Dec 28, 2014 refill [facility] Jan 05, 2015 Scheduling - Done [facility] Jan 05, 2015 Tradjenta PA Approved/Faxed - notified [facility] Jun 23, 2015 Fanapt Approved/Faxed - done [facility] Jun 09, 2015 lantus refilled [facility] Feb 13, 2015 test strips refilled 30X5 [facility] Feb 14, 2015 Body Swollen - called [facility] August 24, 2015 NO BM & sugars in 400's [facility] Jun 26, 2015 Prescribe medicince for UTI/ Symptoms W/diarrhea & weight gain- done [facility] July 05, 2015 Sugars up 400's/Legs Swelling (#) [facility] August 18, 2015 Clonazepam Refill Request - refilled/faxed [facility] August 17, 2015 Problems Problem Type [...]
--- OUTSIDE RECORDS SUMMARY | 2018-07-18 08:44 | XMS REPORT ---
Author Author Shan Be Organization [employer] Address Unknown Phone Unavailable Care Team Providers Care Engineering Program Analyst Name Role Phone Shan Be Unavailable Allergies [...] N39.0 Active Problem Unspecified convulsions R56.9 Active Assessment Type 2 diabetes mellitus with hyperglycemia E11.65 Active Problem Left upper quadrant pain R10.12 Active Problem Chest pain on breathing R07.1 Active Problem Low back pain M54.5 Active Problem Type 2 diabetes mellitus without complications E11.9 Active Problem Schizophrenia, unspecified F20.9 Active Medications Medication Code System Code Instructions Start Date End Date Status Dosage Victoza [facility] 39951177022 18 MG/3ML Subcutaneous Once a day Active 1.2 mg Results No Known Results Summary Purpose eClinicalWorks Submission
--- OUTSIDE RECORDS SUMMARY | 2018-07-18 08:44 | XMS REPORT ---
Author Author Shan Be [employer] Address Unknown Phone Unavailable Care Team Providers Care Hemstitching Machine Operator Name Role Phone Shan Be CP Unavailable Encounters Encounter Location Date Question LM 02/23, 02/24 [facility] Feb 16, 2015 Meclizine Refill Request - refilled [facility] October 18, 2015 rx for pain/ lower extremeties - refilled/faxed/notified [facility] September 29, 2015 other [facility] Jun 05, 2015 Prescriptions - faxed [facility] Jun 06, 2015 vimpat refill [facility] Apr 24, 2015 Needs call back from Medical Staff- no answer [facility] May 02, 2015 Gabapentin refill request [facility] Mar 21, 2015 Question - done [facility] Mar 14, 2015 [facility] Rx- faxed [facility] Mar 10, 2015 Meclizine refill request [facility] Mar 10, 2015 Drug Be Request - refilled/changed [facility] Jun 08, 2015 Needs call back from Medical Staff- No answer [facility] Jan 19, 2015 Question- Done [facility] Jan 26, 2015 Medication Clarification Needed- Done [facility] Feb 02, 2015 reschedule appt LM 02/09 [facility] Feb 08, 2015 Invokana refilled 30X2 [facility] Dec 28, 2014 refill [facility] Jan 05, 2015 Scheduling - Done [facility] Jan 05, 2015 Tradjenta PA Approved/Faxed - notified [facility] Jun 23, 2015 Fanapt Approved/Faxed - done [facility] Jun 09, 2015 lantus refilled [facility] Feb 13, 2015 test strips refilled 30X5 [facility] Feb 14, 2015 Body Swollen - called [facility] August 24, 2015 Bakari PA - fax addit. info [facility] August 25, 2015 Urgent labs [facility] September 01, 2015 PA Status - not needed/notified [facility] September 08, 2015 NO BM & sugars in 400's [facility] Jun 26, 2015 Prescribe medicince for UTI/ Symptoms W/diarrhea & weight gain- done [facility] July 05, 2015 Sugars up 400's/Legs Swelling (#) [facility] August 18, 2015 Clonazepam Refill Request - refilled/faxed [facility] August 17, 2015 Problems Problem Type Condition [...] Date End Date Status Dosage Meclizine HCl [facility] [address]-51 25 MG Orally Once a day Active 1 tablet as needed Social History [...]
--- OUTSIDE RECORDS SUMMARY | 2018-07-18 08:44 | XMS REPORT ---
Author Author Shan Be [employer] Address Unknown Phone Unavailable Care Team Providers Care Direct Support Worker Name Role Phone Shan Be CP Unavailable Encounters Encounter Location Date Needs call back from Medical Staff- No answer [facility] Jan 19, 2015 Question- Done [facility] Jan 26, 2015 Medication Clarification Needed- Done [facility] Feb 02, 2015 reschedule appt LM 02/09 [facility] Feb 08, 2015 Invokana refilled 30X2 [facility] Dec 28, 2014 refill [facility] Jan 05, 2015 Scheduling - Done [facility] Jan 05, 2015 Question LM 02/23, 02/24 [facility] Feb 16, 2015 Woody PA Approved/Faxed - notified [facility] Jun 23, 2015 Fanapt Approved/Faxed - done [facility] Jun 09, 2015 lantus refilled [facility] Feb 13, 2015 test strips refilled 30X5 [facility] Feb 14, 2015 other [facility] Jun 05, 2015 Prescriptions - faxed [facility] Jun 06, 2015 vimpat refill [facility] Apr 24, 2015 Needs call back from Medical Staff- no answer [facility] May 02, 2015 NO BM & sugars in 400's [facility] Jun 26, 2015 Gabapentin refill request [facility] Mar 21, 2015 Prescribe medicince for UTI/ Symptoms W/diarrhea & weight gain- done [facility] July 05, 2015 Question - done [facility] Mar 14, 2015 Sugars up 400's/Legs Swelling (#) [facility] August 18, 2015 [facility] Rx- faxed [facility] Mar 10, 2015 Meclizine refill request [facility] Mar 10, 2015 Drug Be Request - refilled/changed [facility] Jun 08, 2015 Problems Problem Type [...] Instructions Start Date End Date Status Dosage Vimpat [facility] [address]-87 100 mg Orally Twice a day Active 2 tablet Gabapentin [facility] [address]-99 300 MG Orally Three times a day Feb 01, 2015 Active 1 capsule Meloxicam [facility] 41345576594 15 MG Orally daily Active take 1 tablet once a day orally Lyrica [facility] [address]-03 225 MG Orally Twice a day Active 1 capsule Duloxetine HCl [facility] [address]-38 60 MG Orally Once a day at bedtime Active 2 capsule Melatonin [facility] 45625-72348 10 MG Orally daily as needed Active 4 tablets Mobic [facility] 08676316826 15 Orally Once a day Active 1 tablet Midodrine HCl [facility] [address]-62 2.5 MG Orally THREE TIMES A DAY Active 1 tablet Propranolol HCl [facility] 57183056063 20 mg Orally Twice a day Active 1 tablet Meclizine HCl [facility] [address]-70 25 MG Orally Once a day Active 1 tablet as needed BD Pen Needle Inse U/F [facility] 8290-736230 32G X 4 MM subcutaneously four times a day (qid) August 09, 2013 Active as directed One Daily For Women [facility] 10008-95583 Orally Active Unknown Unisom PM Pain [facility] 05855-51640 50-325 MG Orally Active Unknown Estroven Weight Management [facility] 80[address]-35280 Orally Active Unknown tresiba [facility] 1338-2814-39 100 units/mL subcutaneous daily August 21, 2015 Dec 19, 2015 Active 60 units Ondansetron [facility] [address]-84 4 mg Orally every 8 hrs Active 1 tablet on the tongue and allow to dissolve Lantus SoloStar [facility] [address]-46 100 Subcutaneous twice a day (bid) Active 37 units Invokana [facility] [address]-55 300 MG by mouth Once a day Active 1 tablet One touch ultra test strips Unknown 0 . verio three times a day (tid) November 04, 2015 Active as directed Levaquin [facility] [address]-92 500 mg Orally Once a day Feb 24, 2015 Active 1 tablet Lorazepam [facility] [address]-06 1 MG Orally NEEDED Active 1 tablet Blood Glucose Test [facility] 74855-11543 . subcutaneously three times a day (tid) October 20, 2013 Active as directed Zonisamide [facility] [address]-73 100 mg Orally Once a day at bedtime Active 4 capsule Humalog KwikPen [facility] [address]-69 100 UNIT/ML Subcutaneous three times a day (tid) Mar 09, 2015 Active 14 units (slidingscale) Lancets [facility] 8193-526737 . verio three times a day (tid) Active as directed Clonazepam [facility] [address]-96 0.5 MG Orally Twice a day Active 1 tablet Cymbalta [facility] 90971941291 60 MG Orally Once a day Active 1 capsule Levaquin [facility] [address]-46 500 mg Orally Once a day August 21, 2015 August 26, 2015 Active 1 tablet Tradjenta [facility] [address]-86 5 MG Orally Once a day Active take 1 tablet by mouth once a day Zofran [facility] 86837587214 4 mg Orally Once a day Active 1 tablet Fludrocortisone Acetate [facility] [address]-36 0.1 MG Orally daily Active 2 tablet Escitalopram Oxalate [facility] [address]-21 20 MG Orally Once a day Active 1 tablet Fanapt [facility] [address]-93 2 MG Orally Twice a day Active 1 tablet Hydrocortisone [facility] [address]-16 1 % Externally Twice a day September 30, 2014 Active 1 application to affected area Sudafed 12 Hour [facility] [address]-97 120 MG Orally every 12 hrs Active 1 tablet as needed Social History [...]
--- OUTSIDE RECORDS SUMMARY | 2018-07-18 08:44 | XMS REPORT ---
Author Author Laith Haas eClinicalWorks Address Unknown Phone Unavailable Care Team Providers Care Recycling Attendant Name Role Phone Laith Haas CP Unavailable Encounters Encounter Location Date Needs call back from Medical Staff- No answer [facility] Jan 19, 2015 Question- Done [facility] Jan 26, 2015 Medication Clarification Needed- Done [facility] Feb 02, 2015 reschedule appt LM 02/09 [facility] Feb 08, 2015 Invokana refilled 30X2 [facility] Dec 28, 2014 refill [facility] Jan 05, 2015 Scheduling - Done [facility] Jan 05, 2015 Question LM 02/23, 02/24 [facility] Feb 16, 2015 lantus refilled [facility] Feb 13, 2015 test strips refilled 30X5 [facility] Feb 14, 2015 other [facility] Jun 05, 2015 vimpat refill [facility] Apr 24, 2015 Needs call back from Medical Staff- no answer [facility] May 02, 2015 Gabapentin refill request [facility] Mar 21, 2015 Question - done [facility] Mar 14, 2015 [facility] Rx- faxed [facility] Mar 10, 2015 Meclizine refill request [facility] Mar 10, 2015 Problems Problem Type Condition ICD-9 Code Onset Dates Condition Status Problem Chest pain on breathing R07.1 Active Problem Low back pain M54.5 Active Problem Type 2 diabetes mellitus with hyperglycemia E11.65 Active Problem Left upper quadrant pain R10.12 Active Problem Hypothyroidism, unspecified E03.9 Active Problem Type 2 diabetes mellitus without complications E11.9 Active Problem Diabetes mellitus due to underlying condition with diabetic neuropathy, unspecified E08.40 Active Social History Social History Element Qualifiers [...]
--- OUTSIDE RECORDS SUMMARY | 2018-07-18 08:44 | XMS REPORT ---
Author Author Shan Be e[employer] Address Unknown Phone Unavailable Care Team Providers Care Facilities Specialist Name Role Phone Shan Be Unavailable [...]
--- OUTSIDE RECORDS SUMMARY | 2018-07-18 08:44 | XMS REPORT ---
Author Author Shan Be eClinicalWorks Address Unknown Phone Unavailable Care Team Providers Care Bowling Alley Attendant Name Role Phone Shan Be CP Unavailable Encounters Encounter Location Date Needs call back from Medical Staff- No answer [facility] Jan 19, 2015 Question- Done [facility] Jan 26, 2015 Medication Clarification Needed- Done [facility] Feb 02, 2015 reschedule appt LM 02/09 [facility] Feb 08, 2015 Invokana refilled 30X2 [facility] Dec 28, 2014 refill [facility] Jan 05, 2015 Scheduling - Done [facility] Jan 05, 2015 Question LM 02/23, 02/24 [facility] Feb 16, 2015 Woody PA Approved/Faxed - notified [facility] Jun 23, 2015 Fanapt Approved/Faxed - done [facility] Jun 09, 2015 lantus refilled [facility] Feb 13, 2015 test strips refilled 30X5 [facility] Feb 14, 2015 other [facility] Jun 05, 2015 Prescriptions - faxed [facility] Jun 06, 2015 vimpat refill [facility] Apr 24, 2015 Needs call back from Medical Staff- no answer [facility] May 02, 2015 Gabapentin refill request [facility] Mar 21, 2015 Question - done [facility] Mar 14, 2015 [facility] Rx- faxed [facility] Mar 10, 2015 Meclizine refill request [facility] Mar 10, 2015 Drug Be Request - refilled/changed [facility] Jun 08, 2015 Problems Problem Type [...]
--- OUTSIDE RECORDS SUMMARY | 2018-07-18 08:44 | XMS REPORT ---
Author Author Shan Be eClinicalWorks Address Unknown Phone Unavailable Care Team Providers Care School Laboratory Technician Name Role Phone Shan Be Unavailable Encounters Encounter Location Date Question LM 02/23, 02/24 [facility] Feb 16, 2015 other [facility] Jun 05, 2015 Prescriptions - faxed [facility] Jun 06, 2015 vimpat refill [facility] Apr 24, 2015 Needs call back from Medical Staff- no answer [facility] May 02, 2015 Gabapentin refill request [facility] Mar 21, 2015 Question - done [facility] Mar 14, 2015 [facility] Rx- faxed [facility] Mar 10, 2015 Meclizine refill request [facility] Mar 10, 2015 Drug Be Request - refilled/changed [facility] Jun 08, 2015 Needs call back from Medical Staff- No answer [facility] Jan 19, 2015 Question- Done [facility] Jan 26, 2015 Medication Clarification Needed- Done [facility] Feb 02, 2015 reschedule appt LM 02/09 [facility] Feb 08, 2015 Invokana refilled 30X2 [facility] Dec 28, 2014 refill [facility] Jan 05, 2015 Scheduling - Done [facility] Jan 05, 2015 Tradroxannanta [place] Approved/Faxed - notified [facility] Jun 23, 2015 Fanapt Approved/Faxed - done [facility] Jun 09, 2015 lantus refilled [facility] Feb 13, 2015 test strips refilled 30X5 [facility] Feb 14, 2015 Body Swollen - called [facility] August 24, 2015 Bakari OQUENDO - fax addit. info [facility] August 25, 2015 Urgent labs [facility] September 01, 2015 NO BM & sugars in 400's [facility] Jun 26, 2015 Prescribe medicince for UTI/ Symptoms W/diarrhea & weight gain- done [facility] July 05, 2015 Sugars up 400's/Legs Swelling (#) [facility] August 18, 2015 Clonazepam Refill Request - refilled/faxed [facility] August 17, 2015 Problems Problem Type [...]
--- OUTSIDE RECORDS SUMMARY | 2018-07-18 08:44 | XMS REPORT ---
Author Author Shan Be eClinicalWorks Address Unknown Phone Unavailable Care Team Providers Care Momd Teacher Name Role Phone Shan Be CP Unavailable Encounters Encounter Location Date Needs call back from Medical Staff- No answer [facility] Jan 19, 2015 Question- Done [facility] Jan 26, 2015 Medication Clarification Needed- Done [facility] Feb 02, 2015 reschedule appt LM 02/09 [facility] Feb 08, 2015 Invokana refilled 30X2 [facility] Dec 28, 2014 refill [facility] Jan 05, 2015 Scheduling - Done [facility] Jan 05, 2015 Question LM 02/23, 02/24 [facility] Feb 16, 2015 Woody [place] Approved/Faxed - notified [facility] Jun 23, 2015 Fanapt Approved/Faxed - done [facility] Jun 09, 2015 lantus refilled [facility] Feb 13, 2015 test strips refilled 30X5 [facility] Feb 14, 2015 other [facility] Jun 05, 2015 Prescriptions - faxed [facility] Jun 06, 2015 vimpat refill [facility] Apr 24, 2015 Needs call back from Medical Staff- no answer [facility] May 02, 2015 NO BM & sugars in 400's [facility] Jun 26, 2015 Gabapentin refill request [facility] Mar 21, 2015 Prescribe medicince for UTI/ Symptoms W/diarrhea & weight gain- done [facility] July 05, 2015 Question - done [facility] Mar 14, 2015 [facility] Rx- faxed [facility] Mar 10, 2015 Meclizine refill request [facility] Mar 10, 2015 Drug Be Request - refilled/changed [facility] Jun 08, 2015 Problems Problem Type [...] Start Date End Date Status Dosage Clonazepam [facility] [address]-09 0.5 MG Orally Twice a day Active 1 tablet Tradjenta [facility] [address]-40 5 MG Orally Once a day Active take 1 tablet by mouth once a day Gabapentin [facility] [address]-92 300 MG Orally Three times a day Feb 01, 2015 Active 1 capsule Propranolol HCl [facility] [address]-74 20 mg Orally Twice a day Active 1 tablet Lorazepam [facility] [address]-32 1 MG Orally NEEDED Active 1 tablet Cymbalta [facility] 03684147515 60 MG Orally Once a day Active 1 capsule Invokana [facility] [address]-20 300 MG by mouth Once a day Active 1 tablet Duloxetine HCl [facility] [address]-00 60 MG Orally Once a day at bedtime Active 2 capsule Meclizine HCl [facility] [address]-42 25 MG Orally Once a day Active 1 tablet as needed Mobic [facility] 45224229117 15 Orally Once a day Active 1 tablet Blood Glucose Test [facility] 15059-58578 . subcutaneously three times a day (tid) October 20, 2013 Active as directed Levaquin [facility] [address]-90 500 mg Orally Once a day Feb 24, 2015 Active 1 tablet Zofran [facility] 83475108584 4 mg Orally Once a day Active 1 tablet Baclofen Unknown 0 2 % Externally Three times a day Mar 22, 2015 July 20, 2015 Active as directed Lancets [facility] 8193-342562 . verio three times a day (tid) Active as directed Hydrocortisone [facility] [address]-48 1 % Externally Twice a day September 30, 2014 Active 1 application to affected area One Daily For Women [facility] 85934-06223 Orally Active Unknown One touch ultra test strips Unknown 0 . verio three times a day (tid) November 04, 2015 Active as directed Ondansetron [facility] [address]-74 4 mg Orally every 8 hrs Active 1 tablet on the tongue and allow to dissolve Fludrocortisone Acetate [facility] [address]-05 0.1 MG Orally daily Active 2 tablet Humalog KwikPen [facility] [address]-94 100 UNIT/ML Subcutaneous before meals Mar 09, 2015 Active 20 units Vimpat [facility] [address]-30 100 mg Orally Twice a day Active 2 tablet Fanapt [facility] [address]-27 2 MG Orally Twice a day Active 1 tablet Lyrica [facility] [address]-20 225 MG Orally Twice a day Active 1 capsule Meloxicam [facility] [address]-91 15 MG Orally daily September 03, 2015 Active take 1 tablet once a day orally Sudafed 12 Hour [facility] [address]-38 120 MG Orally every 12 hrs Active 1 tablet as needed Zonisamide [facility] [address]-80 100 mg Orally Once a day at bedtime Active 4 capsule Midodrine HCl [facility] [address]-01 2.5 MG Orally THREE TIMES A DAY Active 1 tablet Melatonin [facility] 63504-19815 10 MG Orally daily as needed Active 4 tablets Levaquin [facility] [address]-62 500 mg Orally Once a day July 07, 2015 July 12, 2015 Active 1 tablet Lantus SoloStar [facility] [address]-62 100 Subcutaneous twice a day (bid) Active 30 units Estroven Weight Management [facility] 06245-51334 Orally Active Unknown Escitalopram Oxalate [facility] [address]-02 20 MG Orally Once a day Active 1 tablet BD Pen Needle Ines U/F [facility] 8290-025404 32G X 4 MM subcutaneously four times a day (qid) August 09, 2013 Active as directed Unisom PM Pain [facility] 92877-11721 50-325 MG Orally Active Unknown Social History Social History Element Qualifiers Date [...]
--- OUTSIDE RECORDS SUMMARY | 2018-07-18 08:44 | XMS REPORT ---
Author Author Shan Be eClinicalWorks Address Unknown Phone Unavailable Care Team Providers Care Training And Development Project Leader Name Role Phone Shan Be CP Unavailable Encounters Encounter Location Date Question LM 02/23, 02/24 [facility] Feb 16, 2015 other [facility] Jun 05, 2015 Prescriptions - faxed [facility] Jun 06, 2015 vimpat refill [facility] Apr 24, 2015 Needs call back from Medical Staff- no answer [facility] May 02, 2015 Gabapentin refill request [facility] Mar 21, 2015 Question - done [facility] Mar 14, 2015 [facility] Rx- faxed [facility] Mar 10, 2015 Meclizine refill request [facility] Mar 10, 2015 Drug Be Request - refilled/changed [facility] Jun 08, 2015 Needs call back from Medical Staff- No answer [facility] Jan 19, 2015 Question- Done [facility] Jan 26, 2015 Medication Clarification Needed- Done [facility] Feb 02, 2015 reschedule appt LM 02/09 [facility] Feb 08, 2015 Invokana refilled 30X2 [facility] Dec 28, 2014 refill [facility] Jan 05, 2015 Scheduling - Done [facility] Jan 05, 2015 Woody OQUENDO Approved/Faxed - notified [facility] Jun 23, 2015 Fanapt Approved/Faxed - done [facility] Jun 09, 2015 lantus refilled [facility] Feb 13, 2015 test strips refilled 30X5 [facility] Feb 14, 2015 Body Swollen - called [facility] August 24, 2015 Bakari OQUENDO - fax addit. info [facility] August 25, 2015 NO BM & sugars in 400's [facility] Jun 26, 2015 Prescribe medicince for UTI/ Symptoms W/diarrhea & weight gain- done [facility] July 05, 2015 Sugars up 400's/Legs Swelling (#) [facility] August 18, 2015 Clonazepam Refill Request - refilled/faxed [facility] August 17, 2015 Problems Problem Type [...]
--- OUTSIDE RECORDS SUMMARY | 2018-07-18 08:44 | XMS REPORT ---
Author Author Shan Be eClinicalWorks Address Unknown Phone Unavailable Care Team Providers Care Director Physical Therapy Name Role Phone Shan Be CP Unavailable Encounters Encounter Location Date Needs call back from Medical Staff- No answer [facility] Jan 19, 2015 Question- Done [facility] Jan 26, 2015 Medication Clarification Needed- Done [facility] Feb 02, 2015 reschedule appt LM 02/09 [facility] Feb 08, 2015 Invokana refilled 30X2 [facility] Dec 28, 2014 refill [facility] Jan 05, 2015 Scheduling - Done [facility] Jan 05, 2015 Question LM 02/23, 02/24 [facility] Feb 16, 2015 [facility]apt Approved/Faxed - done [facility] Jun 09, 2015 lantus refilled [facility] Feb 13, 2015 test strips refilled 30X5 [facility] Feb 14, 2015 other [facility] Jun 05, 2015 Prescriptions - faxed [facility] Jun 06, 2015 vimpat refill [facility] Apr 24, 2015 Needs call back from Medical Staff- no answer [facility] May 02, 2015 Gabapentin refill request [facility] Mar 21, 2015 Question - done [facility] Mar 14, 2015 [facility] Rx- faxed [facility] Mar 10, 2015 Meclizine refill request [facility] Mar 10, 2015 Drug Be Request - refilled/changed [facility] Jun 08, 2015 Problems Problem Type [...]
--- OUTSIDE RECORDS SUMMARY | 2018-07-18 08:44 | XMS REPORT ---
Author Author Shan Be Organization eClinicalWorks Address Unknown Phone Unavailable Care Team Providers Care Restaurant Delivery Driver Name Role Phone Shan Be Unavailable Allergies [...] Instructions Start Date End Date Status Dosage Cymbalta [facility] 08993553484 60 MG Orally twice a day (bid) May 02, 2017 Active 1 capsule Meclizine HCl [facility] 89296952501 25 MG Orally Once a day Active 1 tablet as needed Cymbalta [facility] 63508931134 60 MG Orally Once a day Inactive 1 capsule Gabapentin [facility] 45052633113 600 MG Orally four times a day May 02, 2017 Active 1 tablet Gabapentin [facility] 31921118517 300 Inactive TAKE ONE CAPSULE BY MOUTH THREE TIMES DAILY Tramadol HCl [facility] 76749062820 50 mg Orally every 6 hrs May 02, 2017 July 31, 2017 Active 1 tablet as needed Results No Known Results Summary Purpose eClinicalWorks Submission
--- OUTSIDE RECORDS SUMMARY | 2018-07-18 08:44 | XMS REPORT ---
Author Author Shan Be eClinicalWorks Address Unknown Phone Unavailable Care Team Providers Care Glass Lined Tank Repairer Name Role Phone Shan Be CP Unavailable Encounters Encounter Location Date Needs call back from Medical Staff- No answer [facility] Jan 19, 2015 Question- Done [facility] Jan 26, 2015 Medication Clarification Needed- Done [facility] Feb 02, 2015 reschedule appt LM 02/09 [facility] Feb 08, 2015 Invokana refilled 30X2 [facility] Dec 28, 2014 refill [facility] Jan 05, 2015 Scheduling - Done [facility] Jan 05, 2015 Question LM 02/23, 02/24 [facility] Feb 16, 2015 lantus refilled [facility] Feb 13, 2015 test strips refilled 30X5 [facility] Feb 14, 2015 other [facility] Jun 05, 2015 Prescriptions - faxed [facility] Jun 06, 2015 vimpat refill [facility] Apr 24, 2015 Needs call back from Medical Staff- no answer [facility] May 02, 2015 Gabapentin refill request [facility] Mar 21, 2015 Question - done [facility] Mar 14, 2015 [facility] Rx- faxed [facility] Mar 10, 2015 Meclizine refill request [facility] Mar 10, 2015 Problems Problem Type Condition [...]
--- OUTSIDE RECORDS SUMMARY | 2018-07-18 08:44 | XMS REPORT ---
Author Author Shan Be eClinicalWorks Address Unknown Phone Unavailable Care Team Providers Care Chuck Boner Name Role Phone Shan Be CP Unavailable Encounters Encounter Location Date Needs call back from Medical Staff- No answer [facility] Jan 19, 2015 Question- Done [facility] Jan 26, 2015 Medication Clarification Needed- Done [facility] Feb 02, 2015 reschedule appt LM 02/09 [facility] Feb 08, 2015 Invokana refilled 30X2 [facility] Dec 28, 2014 refill [facility] Jan 05, 2015 Scheduling - Done [facility] Jan 05, 2015 Question LM 02/23, 02/24 [facility] Feb 16, 2015 lantus refilled [facility] Feb 13, 2015 test strips refilled 30X5 [facility] Feb 14, 2015 other [facility] Jun 05, 2015 Prescriptions - faxed [facility] Jun 06, 2015 vimpat refill [facility] Apr 24, 2015 Needs call back from Medical Staff- no answer [facility] May 02, 2015 Gabapentin refill request [facility] Mar 21, 2015 Question - done [facility] Mar 14, 2015 [facility] Rx- faxed [facility] Mar 10, 2015 Meclizine refill request [facility] Mar 10, 2015 Drug Be Request - refilled/changed [facility] Jun 08, 2015 Problems Problem Type [...] Instructions Start Date End Date Status Dosage [facility] [address]-51 5 MG Orally Once a day Active take 1 tablet by mouth once a day Social History Social History Element Qualifiers Date [...]
--- OUTSIDE RECORDS SUMMARY | 2018-07-18 08:45 | XMS REPORT ---
Author Author Shan Be eClinicalWorks Address Unknown Phone Unavailable Care Team Providers Care Application Development Consultant Name Role Phone Shan Be CP Unavailable Encounters Encounter Location Date Question LM 02/23, 02/24 [facility] Feb 16, 2015 [employer] PA Approved - faxed/notified [facility] October 26, 2015 Meclizine Refill Request - refilled [facility] October 18, 2015 rx for pain/ lower extremeties - refilled/faxed/notified [facility] September 29, 2015 Humalog KwikPen Refill Request -refilled [facility] Dec 11, 2015 other [facility] Jun 05, 2015 Medication Refill Request - refilled [facility] Dec 15, 2015 Prescriptions - faxed [facility] Jun 06, 2015 Tramodol Refill Request - refilled [facility] November 07, 2015 vimpat refill [facility] Apr 24, 2015 Clonazepam Refill Request - refilled/faxed [facility] Dec 03, 2015 Needs call back from Medical Staff- no answer [facility] May 02, 2015 Clonzepam Refill Request [facility] Feb 01, 2016 Gabapentin refill request [facility] Mar 21, 2015 Question - done [facility] Mar 14, 2015 BS Reading [facility] Dec 20, 2015 [facility] Rx- faxed [facility] Mar 10, 2015 Tramadol Refill Request/Appt Scheduled - made/refilled/faxed [facility] Jan 22, 2016 Meclizine refill request [facility] Mar 10, 2015 Drug Be Request - refilled/changed [facility] Jun 08, 2015 Needs call back from Medical Staff- No answer [facility] Jan 19, 2015 Question- Done [facility] Jan 26, 2015 Medication Clarification Needed- Done [facility] Feb 02, 2015 reschedule appt LM 02/09 [facility] Feb 08, 2015 Invokana refilled 30X2 [facility] Dec 28, 2014 refill [facility] Jan 05, 2015 Scheduling - Done [facility] Jan 05, 2015 Woody OQUENDO Approved/Faxed - notified [facility] Jun 23, 2015 Fanvaibhav Approved/Faxed - done [facility] Jun 09, 2015 Medication Question - LM 02/08, LM 02/14, LM 02/20 [facility] Feb 08, 2016 lantus refilled [facility] Feb 13, 2015 Follow Up [facility] Feb 07, 2016 test strips refilled 30X5 [facility] Feb 14, 2015 Body Swollen - called [facility] August 24, 2015 Bakari PA - fax addit. info [facility] August 25, 2015 Urgent labs [facility] September 01, 2015 PA Status - not needed/notified [facility] September 08, 2015 NO BM & sugars in 400's [facility] Jun 26, 2015 Prescribe medicince for UTI/ Symptoms W/diarrhea & weight gain- done [facility] July 05, 2015 Sugars up 400's/Legs Swelling (#) [facility] August 18, 2015 Clonazepam Refill Request - refilled/faxed [facility] August 17, 2015 Problems Problem Type [...] Use of recreational / street drugs? no. Feb 07, 2016 Tobacco Use: . Patient is a: never smoker Feb 07, 2016 Do you have pets? yes. dogs Feb 07, 2016 Marital Status: . Feb 07, 2016 Caffeine intake? normal. Status: Yes, What type: Soft Drinks Feb 07, 2016 exercise: no. Feb 07, 2016 Alchohol: no. Feb 07, 2016 Summary Purpose eClinicalWorks Submission
--- OUTSIDE RECORDS SUMMARY | 2018-07-18 08:45 | XMS REPORT ---
Author Author Shan Be eClinicalWorks Address Unknown Phone Unavailable Care Team Providers Care Food Processor Name Role Phone Shan Be CP Unavailable Encounters Encounter Location Date Question LM 02/23, 02/24 [facility] Feb 16, 2015 Tresiba FlexTouch PA Approved - faxed/notified [facility] October 26, 2015 Meclizine Refill Request - refilled [facility] October 18, 2015 rx for pain/ lower extremeties - refilled/faxed/notified [facility] September 29, 2015 Humalog KwikPen Refill Request -refilled [facility] Dec 11, 2015 other [facility] Jun 05, 2015 Medication Refill Request - refilled [facility] Dec 15, 2015 Prescriptions - faxed [facility] Jun 06, 2015 Tramodol Refill Request - refilled [facility] November 07, 2015 vimpat refill [facility] Apr 24, 2015 Clonazepam Refill Request - refilled/faxed [facility] Dec 03, 2015 Needs call back from Medical Staff- no answer [facility] May 02, 2015 Gabapentin refill request [facility] Mar 21, 2015 Question - done [facility] Mar 14, 2015 [facility] Rx- faxed [facility] Mar 10, 2015 Meclizine refill request [facility] Mar 10, 2015 Drug Be Request - refilled/changed [facility] Jun 08, 2015 Needs call back from Medical Staff- No answer [facility] Jan 19, 2015 Question- Done [facility] Jan 26, 2015 Medication Clarification Needed- Done [facility] Feb 02, 2015 reschedule appt LM 02/09 [facility] Feb 08, 2015 Invokana refilled 30X2 [facility] Dec 28, 2014 refill [facility] Jan 05, 2015 Scheduling - Done [facility] Jan 05, 2015 Tradjenta PA Approved/Faxed - notified [facility] Jun 23, 2015 Fanapt Approved/Faxed - done [facility] Jun 09, 2015 lantus refilled [facility] Feb 13, 2015 test strips refilled 30X5 [facility] Feb 14, 2015 Body Swollen - called [facility] August 24, 2015 Bakari PA - fax addit. info [facility] August 25, 2015 Urgent labs [facility] September 01, 2015 PA Status - not needed/notified [facility] September 08, 2015 NO BM & sugars in 400's [facility] Jun 26, 2015 Prescribe medicince for UTI/ Symptoms W/diarrhea & weight gain- done [facility] July 05, 2015 Sugars up 400's/Legs Swelling (#) [facility] August 18, 2015 Clonazepam Refill Request - refilled/faxed [facility] August 17, 2015 Problems Problem Type [...] Use of recreational / street drugs? no. Dec 19, 2015 Tobacco Use: . Patient is a: never smoker Dec 19, 2015 Do you have pets? yes. dogs Dec 19, 2015 Marital Status: . Dec 19, 2015 Caffeine intake? normal. Status: Yes, What type: Soft Drinks Dec 19, 2015 exercise: no. Dec 19, 2015 Alchohol: no. Dec 19, 2015 Summary Purpose eClinicalWorks Submission
--- OUTSIDE RECORDS SUMMARY | 2018-07-18 08:45 | XMS REPORT ---
Author Author Shan Be eClinicalWorks Address Unknown Phone Unavailable Care Team Providers Care Cap Maker Name Role Phone Shan Be CP Unavailable Encounters Encounter Location Date Question LM 02/23, 02/24 [facility] Feb 16, 2015 Tresiba FlexTouch PA Approved - faxed/notified [facility] October 26, 2015 Meclizine Refill Request - refilled [facility] October 18, 2015 rx for pain/ lower extremeties - refilled/faxed/notified [facility] September 29, 2015 other [facility] Jun 05, 2015 Prescriptions - faxed [facility] Jun 06, 2015 Tramodol Refill Request - refilled [facility] November 07, 2015 vimpat refill [facility] Apr 24, 2015 Clonazepam Refill Request - refilled/faxed [facility] Dec 03, 2015 Needs call back from Medical Staff- no answer [facility] May 02, 2015 Gabapentin refill request [facility] Mar 21, 2015 Question - done [facility] Mar 14, 2015 [facility] Rx- faxed [facility] Mar 10, 2015 Meclizine refill request [facility] Mar 10, 2015 Drug Be Request - refilled/changed [facility] Jun 08, 2015 Needs call back from Medical Staff- No answer [facility] Jan 19, 2015 Question- Done [facility] Jan 26, 2015 Medication Clarification Needed- Done [facility] Feb 02, 2015 reschedule appt LM 02/09 [facility] Feb 08, 2015 Invokana refilled 30X2 [facility] Dec 28, 2014 refill [facility] Jan 05, 2015 Scheduling - Done [facility] Jan 05, 2015 Tradroxannanta PA Approved/Faxed - notified [facility] Jun 23, 2015 Fanapt Approved/Faxed - done [facility] Jun 09, 2015 lantus refilled [facility] Feb 13, 2015 test strips refilled 30X5 [facility] Feb 14, 2015 Body Swollen - called [facility] August 24, 2015 Bakari PA - fax addit. info [facility] August 25, 2015 Urgent labs [facility] September 01, 2015 PA Status - not needed/notified [facility] September 08, 2015 NO BM & sugars in 400's [facility] Jun 26, 2015 Prescribe medicince for UTI/ Symptoms W/diarrhea & weight gain- done [facility] July 05, 2015 Sugars up 400's/Legs [...] Start Date End Date Status Dosage Clonazepam [facility] [address]-26 0.5 MG Orally Twice a day Active [...]
--- OUTSIDE RECORDS SUMMARY | 2018-07-18 08:45 | XMS REPORT ---
Author Author Shan Be eClinicalWorks Address Unknown Phone Unavailable Care Team Providers Care Tour Counselor Name Role Phone Shan Be CP Unavailable Allergies, Adverse Reactions, Alerts Substance Reaction Event Type Fanapt Info Not Available Drug Allergy Morphine Sulfate Info Not Available Drug Allergy Lyrica Info Not Available Drug Allergy Encounters Encounter Location Date Question LM 02/23, 02/24 [facility] Feb 16, 2015 Tresiba FlexTouch PA Approved - faxed/notified [facility] October 26, 2015 Meclizine Refill Request - refilled [facility] October 18, 2015 rx for pain/ lower extremeties - refilled/faxed/notified [facility] September 29, 2015 Humalog KwikPen Refill Request -refilled [facility] Dec 11, 2015 other [facility] Jun 05, 2015 Medication Refill Request - refilled [facility] Dec 15, 2015 Prescriptions - faxed [facility] Jun 06, 2015 Tramodol Refill Request - refilled [facility] November 07, 2015 vimpat refill [facility] Apr 24, 2015 Clonazepam Refill Request - refilled/faxed [facility] Dec 03, 2015 Needs call back from Medical Staff- no answer [facility] May 02, 2015 Clonzepam Refill Request [facility] Feb 01, 2016 Gabapentin refill request [facility] Mar 21, 2015 Question - done [facility] Mar 14, 2015 BS Reading [facility] Dec 20, 2015 [facility] Rx- faxed [facility] Mar 10, 2015 Tramadol Refill Request/Appt Scheduled - made/refilled/faxed [facility] Jan 22, 2016 Meclizine refill request [facility] Mar 10, 2015 Drug Be Request - refilled/changed [facility] Jun 08, 2015 Needs call back from Medical Staff- No answer [facility] Jan 19, 2015 Question- Done [facility] Jan 26, 2015 Medication Clarification Needed- Done [facility] Feb 02, 2015 reschedule appt LM 02/09 [facility] Feb 08, 2015 Invokana refilled 30X2 [facility] Dec 28, 2014 refill [facility] Jan 05, 2015 Scheduling - Done [facility] Jan 05, 2015 Woody PA Approved/Faxed - notified [facility] Jun 23, 2015 Fanapt Approved/Faxed - done [facility] Jun 09, 2015 lantus refilled [facility] Feb 13, 2015 Follow Up [facility] Feb 07, 2016 test strips refilled 30X5 [facility] Feb 14, 2015 Body Swollen - called [facility] August 24, 2015 Bakari PA - fax addit. info [facility] August 25, 2015 Urgent labs [facility] September 01, 2015 PA Status - not needed/notified [facility] September 08, 2015 NO BM & sugars in 400's [facility] Jun 26, 2015 Prescribe medicince for UTI/ Symptoms W/diarrhea & weight gain- done [facility] July 05, 2015 Sugars up 400's/Legs Swelling (#) [facility] August 18, 2015 Clonazepam Refill Request - refilled/faxed [facility] August 17, 2015 Problems Problem Type Condition ICD-9 Code Onset Dates Condition Status Assessment Hypothyroidism, [...] Instructions Start Date End Date Status Dosage Midodrine HCl [facility] [address]-56 2.5 MG Orally THREE TIMES A DAY Active 1 tablet Lyrica [facility] [address]-12 225 MG Orally Twice a day Active 1 capsule Tresiba FlexTouch [facility] [address]-85 200 UNIT/ML Subcutaneous once a day Active 50 units Propranolol HCl [facility] 62476815176 20 mg Orally Twice a day Active 1 tablet Tramadol HCl [facility] [address]-11 50 MG Orally three times a day (tid) as needed (prn) Jan 25, 2016 Feb 24, 2016 Active as directed Escitalopram Oxalate [facility] [address]-67 20 MG Orally Once a day Active 1 tablet Zofran [facility] 87439920706 4 mg Orally Once a day Active 1 tablet Zonisamide [facility] [address]-94 100 MG Orally Once a day at bedtime Active 4 capsule Tradjenta [facility] 14114435492 5 Active TAKE 1 TABLET BY MOUTH ONCE DAILY Gabapentin [facility] 42180887480 300 Orally Three times a day Active 1 capsule Invokana [facility] [address]-35 300 MG by mouth Once a day Active 1 tablet Mobic [facility] 20909390199 15 Orally Once a day Active 1 tablet Melatonin [facility] 05937-36049 10 MG Orally daily as needed Active 4 tablets Unisom PM Pain [facility] [address]455 50-325 MG Orally Active Unknown Estroven Weight Management [facility] 76[address]30 Orally Active Unknown Meclizine HCl [facility] [address]-70 25 MG Orally Once a day prn Active 1 tablet as needed Levaquin [facility] [address]-73 500 mg Orally Once a day Feb 24, 2015 Active 1 tablet Victoza [facility] 15729027132 18 MG/3ML Subcutaneous Once a day Active 0.6mg for the first week and 1.2mg Fanapt [facility] [address]-59 2 MG Orally Twice a day Active 1 tablet Ondansetron [facility] [address]-75 4 MG Orally every 8 hrs Active 1 tablet on the tongue and allow to dissolve Duloxetine HCl [facility] 48552930358 60 MG Orally Once a day at bedtime Active 2 capsule Lorazepam [facility] [address]-72 1 MG Orally NEEDED Active 1 tablet Lantus SoloStar [facility] [address]-21 100 Subcutaneous daily Active 18-20 units (slidingscale) Clonazepam [facility] [address]-82 0.5 MG Orally Twice a day Active 1 tablet Glucagon Emergency [facility] [address]-36 1 MG Injection prn and repeat in 15 min if needed Dec 20, 2015 Mar 19, 2016 Active as directed Diclofenac Sodium [facility] 59484966923 75 Active TAKE 1 TABLET BY MOUTH TWICE DAILY Blood Glucose Test [facility] 57[address]09 . subcutaneously three times a day (tid) October 20, 2013 Active as directed Duloxetine HCl [facility] [address]-02 60 MG Orally Once a day at bedtime Active 2 capsule Meloxicam [facility] 74223505765 15 MG Orally daily May 07, 2016 Active take 1 tablet once a day orally Hydrocortisone [facility] [address]-87 1 % Externally Twice a day September 30, 2014 Active 1 application to affected area Vimpat [facility] [address]-07 100 MG Orally Twice a day Active 2 tablet Cymbalta [facility] 43662936529 60 MG Orally Once a day Active 1 capsule Humalog KwikPen [facility] [address]-90 100 UNIT/ML Subcutaneous three times a day (tid) Active inject 35 units BD Pen Needle Ines U/F [facility] 8290-142038 32G X 4 MM subcutaneously four times a day (qid) August 09, 2013 Active as directed Lancets [facility] 8193-547935 . verio three times a day (tid) Active as directed One Daily For Women [facility] [address]60-[address]65 Orally Active Unknown Sudafed 12 Hour [facility] [address]-27 120 MG Orally every 12 hrs Active [...] 07, 2016 Alchohol: no. Feb 07, 2016 Vital Signs Date/Time: Feb 07, 2016 Weight 218 lbs Blood Pressure Systolic 142 mm Hg Respiratory Rate 16 /min Cardiac Monitoring Heart Rate 91 /min Temperature 96.7 F Blood Pressure Diastolic 82 mm Hg Summary Purpose eClinicalWorks Submission
--- OUTSIDE RECORDS SUMMARY | 2018-07-18 08:45 | XMS REPORT ---
Author Author Shan Be eClinicalWorks Address Unknown Phone Unavailable Care Team Providers Care Manager Of Security Name Role Phone Shan Be CP Unavailable Encounters Encounter Location Date Question LM 02/23, 02/24 [facility] Feb 16, 2015 Tresiba FlexTouch PA Approved - faxed/notified [facility] October 26, 2015 Meclizine Refill Request - refilled [facility] October 18, 2015 rx for pain/ lower extremeties - refilled/faxed/notified [facility] September 29, 2015 Humalog KwikPen Refill Request -refilled [facility] Dec 11, 2015 other [facility] Jun 05, 2015 Medication Refill Request - refilled [facility] Dec 15, 2015 Prescriptions - faxed [facility] Jun 06, 2015 Tramodol Refill Request - refilled [facility] November 07, 2015 vimpat refill [facility] Apr 24, 2015 Clonazepam Refill Request - refilled/faxed [facility] Dec 03, 2015 Needs call back from Medical Staff- no answer [facility] May 02, 2015 Clonzepam Refill Request [facility] Feb 01, 2016 Gabapentin refill request [facility] Mar 21, 2015 Question - done [facility] Mar 14, 2015 BS Reading [facility] Dec 20, 2015 [facility] Rx- faxed [facility] Mar 10, 2015 Tramadol Refill Request/Appt Scheduled - made/refilled/faxed [facility] Jan 22, 2016 Meclizine refill request [facility] Mar 10, 2015 Drug Be Request - refilled/changed [facility] Jun 08, 2015 Needs call back from Medical Staff- No answer [facility] Jan 19, 2015 Question- Done [facility] Jan 26, 2015 Medication Clarification Needed- Done [facility] Feb 02, 2015 reschedule appt LM 02/09 [facility] Feb 08, 2015 Invokana refilled 30X2 [facility] Dec 28, 2014 refill [facility] Jan 05, 2015 Scheduling - Done [facility] Jan 05, 2015 Woody OQUENDO Approved/Faxed - notified [facility] Jun 23, 2015 Fanvaibhav Approved/Faxed - done [facility] Jun 09, 2015 lantus refilled [facility] Feb 13, 2015 test strips refilled 30X5 [facility] Feb 14, 2015 Body Swollen - called [facility] August 24, 2015 Bakari PA - fax addit. info [facility] August 25, 2015 Urgent labs [facility] September 01, 2015 PA Status - not needed/notified [facility] September 08, 2015 NO BM & sugars in 400's [facility] Jun 26, 2015 Prescribe medicince for UTI/ Symptoms W/diarrhea & weight gain- done [facility] July 05, 2015 Sugars up 400's/Legs Swelling (#) [facility] August 18, 2015 Clonazepam Refill Request - refilled/faxed [facility] August 17, 2015 Problems Problem [...] Start Date End Date Status Dosage Clonazepam [facility] [address]-50 0.5 MG Orally Twice a day Active [...]
--- OUTSIDE RECORDS SUMMARY | 2018-07-18 08:45 | XMS REPORT ---
Author Author Shan Be eClinicalWorks Address Unknown Phone Unavailable Care Team Providers Care X Ray Service Technician Name Role Phone Shan Be CP Unavailable Encounters Encounter Location Date Question LM 02/23, 02/24 [facility] Feb 16, 2015 Tresiba FlexTouch PA Approved - faxed/notified [facility] October 26, 2015 Meclizine Refill Request - refilled [facility] October 18, 2015 rx for pain/ lower extremeties - refilled/faxed/notified [facility] September 29, 2015 Humalog KwikPen Refill Request -refilled [facility] Dec 11, 2015 other [facility] Jun 05, 2015 Prescriptions - faxed [facility] Jun 06, 2015 Tramodol Refill Request - refilled [facility] November 07, 2015 vimpat refill [facility] Apr 24, 2015 Clonazepam Refill Request - refilled/faxed [facility] Dec 03, 2015 Needs call back from Medical Staff- no answer [facility] May 02, 2015 Gabapentin refill request [facility] Mar 21, 2015 Question - done [facility] Mar 14, 2015 [facility] Rx- faxed [facility] Mar 10, 2015 Meclizine refill request [facility] Mar 10, 2015 Drug Be Request - refilled/changed [facility] Jun 08, 2015 Needs call back from Medical Staff- No answer [facility] Jan 19, 2015 Question- Done [facility] Jan 26, 2015 Medication Clarification Needed- Done [facility] Feb 02, 2015 reschedule appt LM 02/09 [facility] Feb 08, 2015 Invokana refilled 30X2 [facility] Dec 28, 2014 refill [facility] Jan 05, 2015 Scheduling - Done [facility] Jan 05, 2015 Tradjenta PA Approved/Faxed - notified [facility] Jun 23, 2015 Fanapt Approved/Faxed - done [facility] Jun 09, 2015 lantus refilled [facility] Feb 13, 2015 test strips refilled 30X5 [facility] Feb 14, 2015 Body Swollen - called [facility] August 24, 2015 Bakari PA - fax addit. info [facility] August 25, 2015 Urgent labs [facility] September 01, 2015 PA Status - not needed/notified [facility] September 08, 2015 NO BM & sugars in 400's [facility] Jun 26, 2015 Prescribe medicince for UTI/ Symptoms W/diarrhea & weight gain- done [facility] July 05, 2015 Sugars up 400's/Legs Swelling (#) [facility] August 18, 2015 Clonazepam Refill Request - refilled/faxed [facility] August 17, 2015 Problems Problem Type Condition [...] Instructions Start Date End Date Status Dosage Humalog KwikPen [facility] [address]-80 100 UNIT/ML Subcutaneous three times a day (tid) Active INJECT 20 UNITS BEFORE MEALS Social History Social History Element Qualifiers Date [...]
--- OUTSIDE RECORDS SUMMARY | 2018-07-18 08:45 | XMS REPORT ---
Author Author Shan Be eClinicalWorks Address Unknown Phone Unavailable Care Team Providers Care Chute Greaser Name Role Phone Shan Be CP Unavailable Encounters Encounter Location Date Question LM 02/23, 02/24 [facility] Feb 16, 2015 Tresiba FlexTouch PA Approved - faxed/notified [facility] October 26, 2015 Meclizine Refill Request - refilled [facility] October 18, 2015 rx for pain/ lower extremeties - refilled/faxed/notified [facility] September 29, 2015 Humalog KwikPen Refill Request -refilled [facility] Dec 11, 2015 other [facility] Jun 05, 2015 Medication Refill Request - refilled [facility] Dec 15, 2015 Prescriptions - faxed [facility] Jun 06, 2015 Tramodol Refill Request - refilled [facility] November 07, 2015 vimpat refill [facility] Apr 24, 2015 Clonazepam Refill Request - refilled/faxed [facility] Dec 03, 2015 Needs call back from Medical Staff- no answer [facility] May 02, 2015 Clonzepam Refill Request [facility] Feb 01, 2016 Gabapentin refill request [facility] Mar 21, 2015 Question - done [facility] Mar 14, 2015 BS Reading [facility] Dec 20, 2015 [facility] Rx- faxed [facility] Mar 10, 2015 Tramadol Refill Request/Appt Scheduled - made/refilled/faxed [facility] Jan 22, 2016 Meclizine refill request [facility] Mar 10, 2015 Drug Be Request - refilled/changed [facility] Jun 08, 2015 Needs call back from Medical Staff- No answer [facility] Jan 19, 2015 Question- Done [facility] Jan 26, 2015 Medication Clarification Needed- Done [facility] Feb 02, 2015 reschedule appt LM 02/09 [facility] Feb 08, 2015 Invokana refilled 30X2 [facility] Dec 28, 2014 refill [facility] Jan 05, 2015 Scheduling - Done [facility] Jan 05, 2015 Woody OQUENDO Approved/Faxed - notified [facility] Jun 23, 2015 Fanapt Approved/Faxed - done [facility] Jun 09, 2015 Medication Question - LM 02/08, LM 02/14, LM 02/20 [facility] Feb 08, 2016 lantus refilled [facility] Feb 13, 2015 Follow Up [facility] Feb 07, 2016 test strips refilled 30X5 [facility] Feb 14, 2015 Fanapt Refill Request - refilled [facility] Apr 23, 2016 tramadol refill- done [facility] Mar 20, 2016 Midodrine/Fanapt/Diclofenac/Clonazepam Refill Request - refilled [facility] Apr 30, 2016 Body Swollen - called [facility] August 24, 2015 Bakari PA - fax addit. info [facility] August 25, 2015 Urgent labs [facility] September 01, 2015 PA Status - not needed/notified [facility] September 08, 2015 NO BM & sugars in 400's [facility] Jun 26, 2015 Prescribe medicince for UTI/ Symptoms W/diarrhea & weight gain- done [facility] July 05, 2015 Sugars up 400's/Legs Swelling (#) [facility] August 18, 2015 Clonazepam Refill Request - refilled/faxed [facility] August 17, 2015 Problems Problem Type [...] Start Date End Date Status Dosage Clonazepam [facility] [address]-94 0.5 MG Orally Twice a day Active 1 tablet Fanapt [facility] [address]-47 2 MG Orally Twice a day Active 1 tablet Diclofenac Sodium [facility] [address]-60 75 MG Orally Twice a day Active 1 tablet Midodrine HCl [facility] [address]-88 2.5 MG Orally Three times a day Active 1 tablet Social History [...]
--- OUTSIDE RECORDS SUMMARY | 2018-07-18 08:45 | XMS REPORT ---
Author Author Shan Be [employer] Address Unknown Phone Unavailable Care Team Providers Care Supercharger Repair Supervisor Name Role Phone Shan Be CP Unavailable Encounters Encounter Location Date Question LM 02/23, 02/24 [facility] Feb 16, 2015 Tresiba [facility] PA Approved - faxed/notified [facility] October 26, 2015 Meclizine Refill Request - refilled [facility] October 18, 2015 rx for pain/ lower extremeties - refilled/faxed/notified [facility] September 29, 2015 Humalog KwikPen Refill Request -refilled [facility] Dec 11, 2015 other [facility] Jun 05, 2015 Medication Refill Request - refilled [facility] Dec 15, 2015 Prescriptions - faxed [facility] Jun 06, 2015 Tramodol Refill Request - refilled [facility] November 07, 2015 vimpat refill [facility] Apr 24, 2015 Clonazepam Refill Request - refilled/faxed [facility] Dec 03, 2015 Needs call back from Medical Staff- no answer [facility] May 02, 2015 Clonzepam Refill Request [facility] Feb 01, 2016 Gabapentin refill request [facility] Mar 21, 2015 Question - done [facility] Mar 14, 2015 BS Reading [facility] Dec 20, 2015 [facility] Rx- faxed [facility] Mar 10, 2015 Tramadol Refill Request/Appt Scheduled - made/refilled/faxed [facility] Jan 22, 2016 Meclizine refill request [facility] Mar 10, 2015 Drug Be Request - refilled/changed [facility] Jun 08, 2015 Needs call back from Medical Staff- No answer [facility] Jan 19, 2015 Question- Done [facility] Jan 26, 2015 Medication Clarification Needed- Done [facility] Feb 02, 2015 reschedule appt LM 02/09 [facility] Feb 08, 2015 Invokana refilled 30X2 [facility] Dec 28, 2014 refill [facility] Jan 05, 2015 Scheduling - Done [facility] Jan 05, 2015 Woody PA Approved/Faxed - notified [facility] Jun 23, 2015 Fanapt Approved/Faxed - done [facility] Jun 09, 2015 Medication Question - LM 14, LM 02/14, LM 02/20 [facility] Feb 08, 2016 lantus refilled [facility] Feb 13, 2015 Follow Up [facility] Feb 07, 2016 test strips refilled 30X5 [facility] Feb 14, 2015 Fanapt Refill Request - refilled [facility] Apr 23, 2016 tramadol refill- done [facility] Mar 20, 2016 Body Swollen - called [facility] August 24, 2015 Bakari PA - fax addit. info [facility] August 25, 2015 Urgent labs [facility] September 01, 2015 PA Status - not needed/notified [facility] September 08, 2015 NO BM & sugars in 400's [facility] Jun 26, 2015 Prescribe medicince for UTI/ Symptoms W/diarrhea & weight gain- done [facility] July 05, 2015 Sugars up 400's/Legs Swelling (#) [facility] August 18, 2015 Clonazepam Refill Request - refilled/faxed [facility] August 17, 2015 Problems Problem [...] Instructions Start Date End Date Status Dosage Fanapt MEDISPAN [address]-89 2 MG Orally Twice a day Active [...]
--- OUTSIDE RECORDS SUMMARY | 2018-07-18 08:45 | XMS REPORT ---
Author Author Shan Be [employer] Address Unknown Phone Unavailable Care Team Providers Care Body Painter Name Role Phone Shan Be CP Unavailable Encounters Encounter Location Date Question LM 02/23, 02/24 [facility] Feb 16, 2015 Tresiba FlexTouch PA Approved - faxed/notified [facility] October 26, 2015 Meclizine Refill Request - refilled [facility] October 18, 2015 rx for pain/ lower extremeties - refilled/faxed/notified [facility] September 29, 2015 Humalog KwikPen Refill Request -refilled [facility] Dec 11, 2015 other [facility] Jun 05, 2015 Medication Refill Request - refilled [facility] Dec 15, 2015 Prescriptions - faxed [facility] Jun 06, 2015 Tramodol Refill Request - refilled [facility] November 07, 2015 vimpat refill [facility] Apr 24, 2015 Clonazepam Refill Request - refilled/faxed [facility] Dec 03, 2015 Needs call back from Medical Staff- no answer [facility] May 02, 2015 Gabapentin refill request [facility] Mar 21, 2015 Question - done [facility] Mar 14, 2015 BS Reading [facility] Dec 20, 2015 [facility] Rx- faxed [facility] Mar 10, 2015 Tramadol Refill Request/Appt Scheduled - made/refilled/faxed [facility] Jan 22, 2016 Meclizine refill request [facility] Mar 10, 2015 Drug Be Request - refilled/changed [facility] Jun 08, 2015 Needs call back from Medical Staff- No answer [facility] Jan 19, 2015 Question- Done [facility] Jan 26, 2015 Medication Clarification Needed- Done [facility] Feb 02, 2015 reschedule appt LM 02/09 [facility] Feb 08, 2015 Invokana refilled 30X2 [facility] Dec 28, 2014 refill [facility] Jan 05, 2015 Scheduling - Done [facility] Jan 05, 2015 Tradjenta PA Approved/Faxed - notified [facility] Jun 23, 2015 Fanapt Approved/Faxed - done [facility] Jun 09, 2015 lantus refilled [facility] Feb 13, 2015 test strips refilled 30X5 [facility] Feb 14, 2015 Body Swollen - called [facility] August 24, 2015 Bakari PA - fax addit. info [facility] August 25, 2015 Urgent labs [facility] September 01, 2015 PA Status - not needed/notified [facility] September 08, 2015 NO BM & sugars in 400's [facility] Jun 26, 2015 Prescribe medicince for UTI/ Symptoms W/diarrhea & weight gain- done [facility] July 05, 2015 Sugars up 400's/Legs Swelling (#) [facility] August 18, 2015 Clonazepam Refill Request - refilled/faxed [facility] August 17, 2015 Problems [...] Date End Date Status Dosage Tramadol HCl [facility] [address]-66 50 MG Orally three times a day (tid) Jan 25, 2016 Feb 24, 2016 Active as directed Social History Social History [...]
--- OUTSIDE RECORDS SUMMARY | 2018-07-18 08:45 | XMS REPORT ---
Author Author Shan Be [employer] Address Unknown Phone Unavailable Care Team Providers Care Networks Software Consultant Name Role Phone Shan Be CP Unavailable Encounters Encounter Location Date Question LM 02/23, 02/24 [facility] Feb 16, 2015 Tresiba FlexTouch PA Approved - faxed/notified [facility] October 26, 2015 Meclizine Refill Request - refilled [facility] October 18, 2015 rx for pain/ lower extremeties - refilled/faxed/notified [facility] September 29, 2015 Humalog KwikPen Refill Request -refilled [facility] Dec 11, 2015 other [facility] Jun 05, 2015 Medication Refill Request - refilled [facility] Dec 15, 2015 Prescriptions - faxed [facility] Jun 06, 2015 Tramodol Refill Request - refilled [facility] November 07, 2015 vimpat refill [facility] Apr 24, 2015 Clonazepam Refill Request - refilled/faxed [facility] Dec 03, 2015 Needs call back from Medical Staff- no answer [facility] May 02, 2015 Clonzepam Refill Request [facility] Feb 01, 2016 Gabapentin refill request [facility] Mar 21, 2015 Question - done [facility] Mar 14, 2015 BS Reading [facility] Dec 20, 2015 [facility] Rx- faxed [facility] Mar 10, 2015 Tramadol Refill Request/Appt Scheduled - made/refilled/faxed [facility] Jan 22, 2016 Meclizine refill request [facility] Mar 10, 2015 Drug Be Request - refilled/changed [facility] Jun 08, 2015 Needs call back from Medical Staff- No answer [facility] Jan 19, 2015 Question- Done [facility] Jan 26, 2015 Medication Clarification Needed- Done [facility] Feb 02, 2015 reschedule appt LM 02/09 [facility] Feb 08, 2015 Invokana refilled 30X2 [facility] Dec 28, 2014 refill [facility] Jan 05, 2015 Scheduling - Done [facility] Jan 05, 2015 Woody PA Approved/Faxed - notified [facility] Jun 23, 2015 Fanapt Approved/Faxed - done [facility] Jun 09, 2015 Medication Question - LM 02/08, LM 02/14, LM 02/20 [facility] Feb 08, 2016 lantus refilled [facility] Feb 13, 2015 Follow Up [facility] Feb 07, 2016 test strips refilled 30X5 [facility] Feb 14, 2015 Fanapt Refill Request - refilled [facility] Apr 23, 2016 tramadol refill- done [facility] Mar 20, 2016 Midodrine/Fanapt/Diclofenac/Clonazepam Refill Request - refilled [facility] Apr 30, 2016 Body Swollen - called [facility] August 24, 2015 Vimpat Refill Request - refilled/faxed [facility] May 02, 2016 Bakari PA - fax addit. info [facility] August 25, 2015 Urgent labs [facility] September 01, 2015 PA Status - not needed/notified [facility] September 08, 2015 NO BM & sugars in 400's [facility] Jun 26, 2015 Prescribe medicince for UTI/ Symptoms W/diarrhea & weight gain- done [facility] July 05, 2015 Sugars up 400's/Legs Swelling (#) [facility] August 18, 2015 Clonazepam Refill Request - refilled/faxed [facility] August 17, 2015 Problems Problem Type [...] Start Date End Date Status Dosage Vimpat MEDISPAN [address]-38 100 MG Orally Twice a day Active 2 tablet Social History Social History Element Qualifiers Date Reported Use of recreational / street drugs? no. Jun 24, 2016 Tobacco Use: . Patient is a: never smoker Jun 24, 2016 Do you have pets? yes. dogs Jun 24, 2016 Marital Status: . Jun 24, 2016 Caffeine intake? normal. Status: Yes, What type: Soft Drinks Jun 24, 2016 exercise: no. Jun 24, 2016 Alchohol: no. Jun 24, 2016 Summary Purpose eClinicalWorks Submission
--- OUTSIDE RECORDS SUMMARY | 2018-07-18 08:45 | XMS REPORT | Summary of Care ---
Author Author [facility] Outpatient Imaging [facility] Outpatient Imaging [facility] Address Unknown Phone Unavailable Encounter HQ Encntr_alias(FIN) [id number] Date(s): 09/11/16 - 09/11/16 [facility] Outpatient Imaging [facility] [address] [facility], [address] [place] [phone] Discharge Disposition: Home or Self Care Attending Physician: Lloyd Sanchez MD Vital Signs No data available for this section Problem List No data available for this section Allergies, Adverse Reactions, Alerts No data available for this section Medications No data available for this section Results No data available for this section Immunizations No data available for this section Procedures No data available for this section Social History No data available for this section Assessment and Plan No data available for this section
--- OUTSIDE RECORDS SUMMARY | 2018-07-18 08:45 | XMS REPORT ---
Author Author Shan Be [employer] Address Unknown Phone Unavailable Care Team Providers Care Biomedical Equipment Specialist Name Role Phone Shan Be CP Unavailable Encounters Encounter Location Date Question LM 02/23, 02/24 [facility] Feb 16, 2015 Tresiba FlexTouch PA Approved - faxed/notified [facility] October 26, 2015 Meclizine Refill Request - refilled [facility] October 18, 2015 rx for pain/ lower extremeties - refilled/faxed/notified [facility] September 29, 2015 Humalog KwikPen Refill Request -refilled [facility] Dec 11, 2015 other [facility] Jun 05, 2015 Medication Refill Request - refilled [facility] Dec 15, 2015 Prescriptions - faxed [facility] Jun 06, 2015 Tramodol Refill Request - refilled [facility] November 07, 2015 vimpat refill [facility] Apr 24, 2015 Clonazepam Refill Request - refilled/faxed [facility] Dec 03, 2015 Needs call back from Medical Staff- no answer [facility] May 02, 2015 Clonzepam Refill Request [facility] Feb 01, 2016 Gabapentin refill request [facility] Mar 21, 2015 Question - done [facility] Mar 14, 2015 BS Reading [facility] Dec 20, 2015 [facility] Rx- faxed [facility] Mar 10, 2015 Tramadol Refill Request/Appt Scheduled - made/refilled/faxed [facility] Jan 22, 2016 Meclizine refill request [facility] Mar 10, 2015 Drug Be Request - refilled/changed [facility] Jun 08, 2015 Needs call back from Medical Staff- No answer [facility] Jan 19, 2015 Question- Done [facility] Jan 26, 2015 Medication Clarification Needed- Done [facility] Feb 02, 2015 reschedule appt LM 02/09 [facility] Feb 08, 2015 Invokana refilled 30X2 [facility] Dec 28, 2014 refill [facility] Jan 05, 2015 Scheduling - Done [facility] Jan 05, 2015 Woody PA Approved/Faxed - notified [facility] Jun 23, 2015 Fanapt Approved/Faxed - done [facility] Jun 09, 2015 Medication Question - LM 02/08, LM 02/14, LM 02/20 [facility] Feb 08, 2016 lantus refilled [facility] Feb 13, 2015 Follow Up [facility] Feb 07, 2016 test strips refilled 30X5 [facility] Feb 14, 2015 tramadol refill- done [facility] Mar 20, 2016 Body Swollen - called [facility] August 24, 2015 Bakari PA - fax addit. info [facility] August 25, 2015 Urgent labs [facility] September 01, 2015 PA Status - not needed/notified [facility] September 08, 2015 NO BM & sugars in 400's [facility] Jun 26, 2015 Prescribe medicince for UTI/ Symptoms W/diarrhea & weight gain- done [facility] July 05, 2015 Sugars up 400's/Legs Swelling (#) [facility] August 18, 2015 Clonazepam Refill Request - refilled/faxed [facility] August 17, 2015 Problems [...]
--- OUTSIDE RECORDS SUMMARY | 2018-07-18 08:45 | XMS REPORT ---
Author Author Shan Be [facility] e[employer] Address Unknown Phone Unavailable Care Team Providers Care Business Asst Name Role Phone Shan Be Unavailable Allergies [...]
--- OUTSIDE RECORDS SUMMARY | 2018-07-18 08:45 | XMS REPORT ---
Author Author Shan Be [employer] Address Unknown Phone Unavailable Care Team Providers Care Slackman Name Role Phone Shan Be CP Unavailable Encounters Encounter Location Date Question LM 02/23, 02/24 [facility] Feb 16, 2015 Tresiba FlexTouch PA Approved - faxed/notified [facility] October 26, 2015 Meclizine Refill Request - refilled [facility] October 18, 2015 rx for pain/ lower extremeties - refilled/faxed/notified [facility] September 29, 2015 Humalog KwikPen Refill Request -refilled [facility] Dec 11, 2015 other [facility] Jun 05, 2015 Medication Refill Request - refilled [facility] Dec 15, 2015 Prescriptions - faxed [facility] Jun 06, 2015 Tramodol Refill Request - refilled [facility] November 07, 2015 vimpat refill [facility] Apr 24, 2015 Clonazepam Refill Request - refilled/faxed [facility] Dec 03, 2015 Needs call back from Medical Staff- no answer [facility] May 02, 2015 Gabapentin refill request [facility] Mar 21, 2015 Question - done [facility] Mar 14, 2015 BS Reading [facility] Dec 20, 2015 [facility] Rx- faxed [facility] Mar 10, 2015 Meclizine refill request [facility] Mar 10, 2015 Drug Be Request - refilled/changed [facility] Jun 08, 2015 Needs call back from Medical Staff- No answer [facility] Jan 19, 2015 Question- Done [facility] Jan 26, 2015 Medication Clarification Needed- Done [facility] Feb 02, 2015 reschedule appt LM 02/09 [facility] Feb 08, 2015 Invokana refilled 30X2 [facility] Dec 28, 2014 refill [facility] Jan 05, 2015 Scheduling - Done [facility] Jan 05, 2015 Tradjenta PA Approved/Faxed - notified [facility] Jun 23, 2015 Fanapt Approved/Faxed - done [facility] Jun 09, 2015 lantus refilled [facility] Feb 13, 2015 test strips refilled 30X5 [facility] Feb 14, 2015 Body Swollen - called [facility] August 24, 2015 Bakari PA - fax addit. info [facility] August 25, 2015 Urgent labs [facility] September 01, 2015 PA Status - not needed/notified [facility] September 08, 2015 NO BM & sugars in 400's [facility] Jun 26, 2015 Prescribe medicince for UTI/ Symptoms W/diarrhea & weight gain- done [facility] July 05, 2015 Sugars up 400's/Legs Swelling (#) [facility] August 18, 2015 Clonazepam Refill Request - refilled/faxed [facility] August 17, 2015 Problems Problem Type [...] Instructions Start Date End Date Status Dosage Glucagon Emergency [facility] [address]-83 1 MG Injection prn and repeat in 15 min if needed Dec 20, 2015 Mar 19, 2016 Active as directed Duloxetine HCl [facility] [address]-27 60 MG Orally Once a day at bedtime Active 2 capsule Social History Social History Element Qualifiers Date [...]
--- OUTSIDE RECORDS SUMMARY | 2018-07-18 08:45 | XMS REPORT ---
Author Author Shan Be [facility] e[employer] Address Unknown Phone Unavailable Care Team Providers Care Injection Molding Operator Name Role Phone Shan Be Unavailable [...]
--- OUTSIDE RECORDS SUMMARY | 2018-07-18 08:46 | XMS REPORT | Summary of Care ---
Author Author [facility] Organization [facility] Address Unknown Phone Unavailable Encounter SHIVANI Gerard(KALYAN) [id number] Date(s): 10/18/16 - 10/18/16 [facility] [address] [place] [address]- [phone] Discharge Disposition: Home or Self Care Attending Physician: Kevin Wilkins MD Referring Physician: Kevin Wilkins MD Vital Signs 1 2 3 Most recent to oldest [Reference Range]: 165.1 cm (10/11/16 3:18 PM) Height 114/68 mmHg (10/18/16 10:35 AM) 114/72 mmHg (10/18/16 10:30 AM) 104/77 mmHg (10/18/16 10:14 AM) Blood Pressure [90-140/60-90 mmHg] 14 BRMIN (10/18/16 10:35 AM) 17 BRMIN (10/18/16 10:30 AM) 21 BRMIN *HI* (10/18/16 10:14 AM) Respiratory Rate [14-20 BRMIN] 80 bpm (10/18/16 6:00 AM) 83 bpm (10/11/16 4:14 PM) Peripheral Pulse Rate [60-100 bpm] 98.182 kg (10/11/16 3:18 PM) Weight 36.02 m2 (10/11/16 3:18 PM) Body Mass Index Problem List Condition Effective Dates Status Health Status Informant Anemia(Confirmed) Resolved Biliary dyskinesia1, 01/16/11 Active 2 Diabetes Resolved mellitus(Confirmed) DM - Diabetes Resolved mellitus(Confirmed) Epilepsy(Confirmed) Resolved Headache(Confirmed) Resolved Hyperglycemia(Confir Active med) Hypothyroidism(Confi Resolved rmed) Migraines(Confirmed) Resolved Seizure after head Resolved injury(Confirmed) Seizure Active precautions(Confirme d) Seizures(Confirmed) Resolved 1Data migrated from [employer] on 09/26/14. 2Data migrated from [employer] on 09/26/14. Allergies, Adverse Reactions, Alerts Substance Reaction Severity Status morphine1, 2 Active 1Data migrated from [employer] on 12/19/14. Originally documented as MORPHINE. 2Data migrated from [employer] on 08/25/14. Originally documented as MORPHINE. unknown Medications 1/2NS + KCL 20mEq/L 1000ml (Premix) 1,000 mL 1,000 mL, Rate: 75 ml/hr, Infuse over: 13.3 hr, Route: IV, Dosing Weight 98.182 kg, Total Volume: 1,000, Start date: 10/18/16 10:08:00 CDT, Duration: 30 day, St op date: 11/17/16 10:07:00 CDT Notes: PREMIX IV - Do Not AlterWASTE: F/P - Sink; E - Municipal Trash Bin Start Date: 10/18/16 Stop Date: 10/18/16 Status: Discontinued ANES acetaminophen 1,000 mg, Route: IVPB, Drug form: INJ, ONCE, Dosing Weight 98.182, kg, PRN Pain Score 1-3, Start date: 10/18/16 9:52:00 CDT, Duration: 1 doses or times, Stop da te: Limited # of times Start Date: 10/18/16 Stop Date: 10/18/16 Status: Completed ANES dexamethasone 4 mg, 1 mL, Route: IVP, Drug form: INJ, ONCE, Dosing Weight 98.182, kg, PRN Naus ea & Vomiting, Start date: 10/18/16 9:52:00 CDT Notes: Concentration: 4mg/ml Start Date: 10/18/16 Stop Date: 10/18/16 Status: Discontinued ANES fentaNYL 25 microgram, 0.5 mL, Route: IVP, Drug form: INJ, Q5Min, Dosing Weight 98.182, k g, PRN Pain Score 4-6, Priority: Routine, Start date: 10/18/16 9:52:00 CDT, Dura tion: 4 doses or times, Stop date: Limited # of times Notes: (Same as: Sublimaze) Preservative free. Start Date: 10/18/16 Stop Date: 10/18/16 Status: Discontinued ANES flumazenil 0.2 mg, 2 mL, Route: IVP, Drug form: INJ, PRN, Dosing Weight 98.182, kg, PRN Anders zodiazepine Reversal, Initial dose, Start date: 10/18/16 9:52:00 CDT, Duration: 30 day, Stop date: 11/17/16 9:51:00 CDT Notes: (Same as: Romazicon) Start Date: 10/18/16 Stop Date: 10/18/16 Status: Discontinued ANES hydrALAZINE 10 mg, 0.5 mL, Route: IVP, Drug form: INJ, Q20Min, Dosing Weight 98.182, kg, PRN Elevated BP, Start date: 10/18/16 9:52:00 CDT, Duration: 2 doses or times, Stop date: Limited # of times Notes: (Same as: Apresoline)Push over 5 minutes Start Date: 10/18/16 Stop Date: 10/18/16 Status: Discontinued ANES ketOROLAC 30 mg, 1 mL, Route: IVP, Drug form: INJ, ONCE, Dosing Weight 98.182, kg, Start d ate: 10/18/16 9:52:00 CDT, Duration: 1 doses or times, Stop date: 10/18/16 9:52: 00 CDT Notes: (Same as:Toradol) IV bolus must be given >15 seconds. Give IM administration slowly and deeply into the muscle.Not for use > 4 days MEDICATION WASTE Product Size: 30 mgProduct Wasted: ___ mg Start Date: 10/18/16 Stop Date: 10/18/16 Status: Ordered ANES labetalol 10 mg, 2 mL, Route: IVP, Drug form: INJ, Q5Min, Dosing Weight 98.182, kg, PRN El evated BP, Start date: 10/18/16 9:52:00 CDT, Duration: 5 doses or times, Stop da te: Limited # of times Notes: (Same as: Normodyne, Trandate)Push over 2 minutes Give bolus over 2-3 mi nutes. Start Date: 10/18/16 Stop Date: 10/18/16 Status: Discontinued ANES meperidine 12.5 mg, 0.25 mL, Route: IVP, Drug form: INJ, Q30Min, Dosing Weight 98.182, kg, PRN Other -See Comment, For shivering, Start date: 10/18/16 9:52:00 CDT, Duratio n: 2 doses or times, Stop date: Limited # of times Notes: (Same as: Demerol) "Use Precaution in Elderly, Seizure disorders, and Re nal impairment" Start Date: 10/18/16 Stop Date: 10/18/16 Status: Discontinued ANES naloxone 0.4 mg, 1 mL, Route: IVP, Drug form: INJ, Q2MIN, Dosing Weight 98.182, kg, PRN N arcotic Reversal, Start date: 10/18/16 9:52:00 CDT, Duration: 8 doses or times, Stop date: Limited # of times Notes: Same as Narcan Start Date: 10/18/16 Stop Date: 10/18/16 Status: Discontinued ANES ondansetron 4 mg, Route: IVP, ONCE, Dosing Weight 98.182, kg, PRN Nausea & Vomiting, Start date: 10/18/16 9:52:00 CDT Start Date: 10/18/16 Stop Date: 10/18/16 Status: Completed ceFAZolin (SCIP) 1 gm, Route: IVPB, Drug form: INJ, Q8H, Dosing Weight 98.182, kg, Start date: 16:00:00 CDT, Duration: 1 doses or times, Stop date: 10/18/16 16:00:00 CD T, ABX Indication: Surgical Prophylaxis Start Date: 10/18/16 Stop Date: 10/18/16 Status: Canceled dexamethasone (ANES) Route: IV, Drug form: INJ, ONCE, Stop date: 10/18/16 8:54:00 CDT Start Date: 10/18/16 Stop Date: 10/18/16 Status: Completed DULoxetine 120 mg, Route: PO, Drug form: DRC, QPM, Dosing Weight 98.182, kg, Start date: 17:00:00 CDT, Duration: 30 day, Stop date: 11/16/16 17:00:00 CDT Start Date: 10/18/16 Stop Date: 10/18/16 Status: Deleted fentaNYL (ANES) Route: IV, Drug form: INJ, ONCE, Stop date: 10/18/16 8:29:00 CDT Start Date: 10/18/16 Stop Date: 10/18/16 Status: Completed fludrocortisone 0.1 mg, 1 tab, Route: PO, Drug form: TAB, BID, Dosing Weight 98.182, kg, Start d ate: 10/18/16 17:00:00 CDT, Duration: 30 day, Stop date: 11/17/16 9:00:00 CDT Notes: (Same as: Florinef Acetate) Give with food. Start Date: 10/18/16 Stop Date: 10/18/16 Status: Discontinued glycopyrrolate (ANES) Route: IV, Drug form: INJ, ONCE, Stop date: 10/18/16 9:30:00 CDT Start Date: 10/18/16 Stop Date: 10/18/16 Status: Completed insulin aspart 10 unit, 0.1 mL, Route: SUB-Q, Drug form: SOLN, Sliding Scale, Dosing Weight 98. 182, kg, PRN Blood Glucose Results, Start date: 10/18/16 9:52:00 CDT, Duration: 30 day, Stop date: 11/17/16 9:51:00 CDT Notes: Roll in palms of hands gently; Do not shake vigorously. (Same as: Joann Guillermo)"single patient use only"WASTE: F/P - Black; E - Municipal Trash Bin Stable f or 28 days at room temperature.Expires in days from Date Start Date: 10/18/16 Stop Date: 10/18/16 Status: Discontinued insulin aspart 8 unit, 0.08 mL, Route: SUB-Q, Drug form: SOLN, Sliding Scale, Dosing Weight 98. 182, kg, PRN Blood Glucose Results, Start date: 10/18/16 9:52:00 CDT, Duration: 30 day, Stop date: 11/17/16 9:51:00 CDT Notes: Roll in palms of hands gently; Do not shake vigorously. (Same as: Joann Guillermo)"single patient use only"WASTE: F/P - Black; E - Municipal Trash Bin Stable f or 28 days at room temperature.Expires in days from Date Start Date: 10/18/16 Stop Date: 10/18/16 Status: Discontinued insulin aspart 6 unit, 0.06 mL, Route: SUB-Q, Drug form: SOLN, Sliding Scale, Dosing Weight 98. 182, kg, PRN Blood Glucose Results, Start date: 10/18/16 9:52:00 CDT, Duration: 30 day, Stop date: 11/17/16 9:51:00 CDT Notes: Roll in palms of hands gently; Do not shake vigorously. (Same as: Joann Guillermo)"single patient use only"WASTE: F/P - Black; E - Municipal Trash Bin Stable f or 28 days at room temperature.Expires in days from Date Start Date: 10/18/16 Stop Date: 10/18/16 Status: Discontinued insulin aspart 4 unit, 0.04 mL, Route: SUB-Q, Drug form: SOLN, Sliding Scale, Dosing Weight 98. 182, kg, PRN Blood Glucose Results, Start date: 10/18/16 9:52:00 CDT, Duration: 30 day, Stop date: 11/17/16 9:51:00 CDT Notes: Roll in palms of hands gently; Do not shake vigorously. (Same as: Joann Guillermo)"single patient use only"WASTE: F/P - Black; E - Municipal Trash Bin Stable f or 28 days at room temperature.Expires in days from Date Start Date: 10/18/16 Stop Date: 10/18/16 Status: Discontinued insulin aspart 2 unit, 0.02 mL, Route: SUB-Q, Drug form: SOLN, Sliding Scale, Dosing Weight 98. 182, kg, PRN Blood Glucose Results, Start date: 10/18/16 9:52:00 CDT, Duration: 30 day, Stop date: 11/17/16 9:51:00 CDT Notes: Roll in palms of hands gently; Do not shake vigorously. (Same as: Joann Guillermo)"single patient use only"WASTE: F/P - Black; E - Municipal Trash Bin Stable f or 28 days at room temperature.Expires in days from Date Start Date: 10/18/16 Stop Date: 10/18/16 Status: Discontinued ketOROLAC (ANES) IV, ONCE Start Date: 10/18/16 Stop Date: 10/18/16 Status: Completed lidocaine (ANES) Route: IV, Drug form: INJ, ONCE, Stop date: 10/18/16 8:24:00 CDT Start Date: 10/18/16 Stop Date: 10/18/16 Status: Completed LR 1000 mL INJ (ANES) Route: IV, Total Volume: 1,000, Start date: 10/18/16 7:32:00 CDT, Stop date: 8:32:00 CDT Start Date: 10/18/16 Stop Date: 10/18/16 Status: Completed meclizine 25 mg, 1 tab, Route: PO, Drug form: TAB, TID, Dosing Weight 98.182, kg, PRN Dizz iness, Start date: 10/18/16 10:03:00 CDT, Duration: 30 day, Stop date: 11/17/16 10:02:00 CDT Notes: (Same as: Antivert) Start Date: 10/18/16 Stop Date: 10/18/16 Status: Discontinued meloxicam 15 mg, 2 tab, Route: PO, Drug form: TAB, Daily, Dosing Weight 98.182, kg, Start date: 10/19/16 9:00:00 CDT, Duration: 30 day, Stop date: 11/17/16 9:00:00 CDT Notes: (Same as: Mobic) Start Date: 10/19/16 Stop Date: 10/18/16 Status: Canceled midazolam (ANES) Route: IV, Drug form: SOLN, ONCE, Stop date: 10/18/16 8:29:00 CDT Start Date: 10/18/16 Stop Date: 10/18/16 Status: Completed neostigmine (ANES) Route: IV, Drug form: INJ, ONCE, Stop date: 10/18/16 9:30:00 CDT Start Date: 10/18/16 Stop Date: 10/18/16 Status: Completed Edroy 10/325 oral tablet 1 tab, Route: PO, Drug Form: TAB, Dosing Weight 98.182, kg, Q4H, PRN Pain Score 4-6, Start date: 10/18/16 10:08:00 CDT, Duration: 30 day, Stop date: 11/17/16 10 :07:00 CDT Notes: Do not exceed 4gm/day of acetaminophen. (Same as: Edroy 325/10) Start Date: 10/18/16 Stop Date: 10/18/16 Status: Discontinued ondansetron (ANES) Route: IV, Drug form: INJ, ONCE, Stop date: 10/18/16 8:34:00 CDT Start Date: 10/18/16 Stop Date: 10/18/16 Status: Completed Onfi 10 mg, Route: PO, Drug form: TAB, BID, Dosing Weight 98.182, kg, Start date: 17:00:00 CDT, Duration: 30 day, Stop date: 11/17/16 9:00:00 CDT Start Date: 10/18/16 Stop Date: 10/18/16 Status: Deleted Onfi 10 mg oral tablet 10 mg=1 tab, PO, BID, 0 Refill(s) Start Date: 10/11/16 Status: Suspended pantoprazole 40 mg, 1 tab, Route: PO, Drug form: ECTAB, Daily, Dosing Weight 98.182, kg, Star t date: 10/19/16 9:00:00 CDT, Duration: 30 day, Stop date: 11/17/16 9:00:00 CDT Notes: Tablet should not be chewed or crushed.(Same as: Protonix) Start Date: 10/19/16 Stop Date: 10/18/16 Status: Canceled pantoprazole 40 mg oral enteric coated tablet 40 mg=1 tab, PO, Daily, 0 Refill(s) Start Date: 10/11/16 Status: Suspended propofol (ANES) Route: IV, Drug form: INJ, ONCE, Stop date: 10/18/16 8:29:00 CDT Start Date: 10/18/16 Stop Date: 10/18/16 Status: Completed propranolol 20 mg, Route: PO, Drug form: TAB, BID, Dosing Weight 98.182, kg, Start date: 17:00:00 CDT, Duration: 30 day, Stop date: 11/17/16 9:00:00 CDT Start Date: 10/18/16 Stop Date: 10/18/16 Status: Deleted propranolol 20 mg oral tablet 20 mg=1 tab, PO, BID, 0 Refill(s) Start Date: 10/11/16 Status: Suspended rocuronium (ANES) Route: IV, Drug form: INJ, ONCE, Stop date: 10/18/16 8:29:00 CDT Start Date: 10/18/16 Stop Date: 10/18/16 Status: Completed SUMAtriptan 6 mg, 0.5 mL, Route: SUB-Q, Drug form: INJ, ONCE, Dosing Weight 98.182, kg, PRN Headache 1-5, Start date: 10/18/16 10:04:00 CDT Start Date: 10/18/16 Stop Date: 10/18/16 Status: Deleted vancomycin (ANES) (ANES) Route: IV, Drug form: INJ, Start date: 10/18/16 7:30:00 CDT, Stop date: 10/18/16 8:30:00 CDT Start Date: 10/18/16 Stop Date: 10/18/16 Status: Completed vancomycin (SCIP) 1,500 mg, Route: IVPB, Drug form: INJ, Q12H, Dosing Weight 98.182, kg, Start deepa e: 10/18/16 21:00:00 CDT, Duration: 24 hr, Stop date: 10/19/16 9:00:00 CDT, ABX Indication: Surgical Prophylaxis Start Date: 10/18/16 Stop Date: 10/18/16 Status: Deleted Vimpat 200 mg, Route: PO, Drug form: TAB, BID, Dosing Weight 98.182, kg, Start date: 17:00:00 CDT, Duration: 30 day, Stop date: 11/17/16 9:00:00 CDT Start Date: 10/18/16 Stop Date: 10/18/16 Status: Deleted Vimpat 300 mg, Route: PO, Drug form: TAB, BID, Dosing Weight 98.182, kg, Start date: 17:00:00 CDT, Duration: 30 day, Stop date: 11/17/16 9:00:00 CDT Start Date: 10/18/16 Stop Date: 10/18/16 Status: Deleted Vimpat 200 mg oral tablet 200 mg=1 tab, PO, BID, # 30 day, 0 Refill(s) Start Date: 10/11/16 Status: Suspended Vitamin D3 2000 intl units oral tablet 2,000 IntlUnit, 2 tab, Route: PO, Drug form: TAB, Daily, Dosing Weight 98.182, k g, Start date: 10/19/16 9:00:00 CDT, Duration: 30 day, Stop date: 11/17/16 9:00: 00 CDT Notes: Same as : Vitamin D3 Start Date: 10/19/16 Stop Date: 10/18/16 Status: Canceled Zofran 4 mg, 2 mL, Route: IV, Drug form: INJ, Q8H, Dosing Weight 98.182, kg, PRN Nausea , Start date: 10/18/16 10:08:00 CDT, Duration: 30 day, Stop date: 11/17/16 10:07 :00 CDT Notes: (Same as: Zofran) MEDICATION WASTE Product Size: 4 mgProduct Was hossein: ___ mg Start Date: 10/18/16 Stop Date: 10/18/16 Status: Discontinued Zofran 4 mg, 1 tab, Route: PO, Drug form: TAB, Q8H, Dosing Weight 98.182, kg, PRN Nause a, Start date: 10/18/16 10:08:00 CDT, Duration: 30 day, Stop date: 11/17/16 10:0 7:00 CDT Notes: (Same as: Zofran) Start Date: 10/18/16 Stop Date: 10/18/16 Status: Discontinued Results BLOOD BANK RESULTS Most recent to 1 oldest [Reference Range]: ABO/Rh O POS *Unknown* (10/11/16 3:24 PM) Antibody Scrn Negative (10/11/16 3:24 PM) ELECTROLYTES Most recent to 1 oldest [Reference Range]: Sodium Lvl [135-145 135 mEq/L mEq/L] (10/11/16 3:24 PM) Potassium Lvl 4.5 mEq/L [3.5-5.1 mEq/L] (10/11/16 3:24 PM) Chloride Lvl [95-109 100 mEq/L mEq/L] (10/11/16 3:24 PM) CO2 [24-32 mEq/L] 27 mEq/L (10/11/16 3:24 PM) AGAP [10.0-20.0 12.5 mEq/L mEq/L] (10/11/16 3:24 PM) CHEM PANEL Most recent to 1 oldest [Reference Range]: Creatinine Lvl 0.90 mg/dL [0.50-1.40 mg/dL] (10/11/16 3:24 PM) eGFR 77 mL/min/1.73m2 1 *NA* (10/11/16 3:24 PM) BUN [7-22 mg/dL] 18 mg/dL (10/11/16 3:24 PM) Glucose Lvl [70-99 364 mg/dL mg/dL] *HI* (10/11/16 3:24 PM) Calcium Lvl 10.1 mg/dL [8.5-10.5 mg/dL] (10/11/16 3:24 PM) 1Result Comment: The eGFR is calculated using [...] be mul tiplied by the estimated BMI. SPECIAL CHEMISTRY Most recent to 1 oldest [Reference Range]: Hgb A1C [<=5.6 %] 8.5 % *HI* (10/11/16 3:24 PM) ENDOCRINOLOGY Most recent to 1 oldest [Reference Range]: S Preg [Negative] Negative *NA* (10/11/16 3:24 PM) URINE CHEM Most recent to 1 oldest [Reference Range]: U Preg [Negative] Negative (10/18/16 5:52 AM) IMMUNOLOGY Most recent to 1 oldest [Reference Range]: HIV Ag/Ab 4th Gen Negative [Negative] *NA* (10/11/16 3:24 PM) HEMATOLOGY Most recent to 1 oldest [Reference Range]: WBC [3.7-10.4 K/CMM] 5.0 K/CMM (10/11/16 3:24 PM) RBC [4.20-5.40 5.02 M/CMM M/CMM] (10/11/16 3:24 PM) Hgb [12.0-16.0 g/dL] 15.1 g/dL (10/11/16 3:24 PM) Hct [36.0-48.0 %] 44.9 % (10/11/16 3:24 PM) MCV [80.0-98.0 fL] 89.5 fL (10/11/16 3:24 PM) MCH [27.0-31.0 pg] 30.1 pg (10/11/16 3:24 PM) MCHC [32.0-36.0 33.6 g/dL g/dL] (10/11/16 3:24 PM) RDW [11.5-14.5 %] 12.7 % (10/11/16 3:24 PM) Platelet [133-450 177 K/CMM K/CMM] (10/11/16 3:24 PM) MPV [7.4-10.4 fL] 9.1 fL (10/11/16 3:24 PM) Segs [45.0-75.0 %] 65.9 % (10/11/16 3:24 PM) Lymphocytes 29.2 % [20.0-40.0 %] (10/11/16 3:24 PM) Monocytes [2.0-12.0 4.5 % %] (10/11/16 3:24 PM) Eosinophils [0.0-4.0 0.1 % %] (10/11/16 3:24 PM) Basophils [0.0-1.0 0.3 % %] (10/11/16 3:24 PM) Segs-Bands # 3.3 K/CMM [1.5-8.1 K/CMM] (10/11/16 3:24 PM) Lymphocytes # 1.5 K/CMM [1.0-5.5 K/CMM] (10/11/16 3:24 PM) Monocytes # [0.0-0.8 0.2 K/CMM K/CMM] (10/11/16 3:24 PM) Eosinophils # 0.0 K/CMM [0.0-0.5 K/CMM] (10/11/16 3:24 PM) Basophils # [0.0-0.2 0.0 K/CMM K/CMM] (10/11/16 3:24 PM) PT [12.0-14.7 13.0 seconds seconds] (10/11/16 3:24 PM) INR [0.85-1.17] 0.96 (10/11/16 3:24 PM) PTT [22.9-35.8 31.1 seconds seconds] (10/11/16 3:24 PM) Immunizations Given and Recorded Vaccine Date Status Refusal Reason pneumococcal 23-valent vaccine 07/23/11 Given Procedures Procedure Date Related Diagnosis Body Site Gallbladder operation Lobectomy of brain Tonsils and adenoids postoperative education Social History Social History Type Response Substance Abuse Use: None. Alcohol Never, Previous treatment: None. Smoking Status Never smoker; Exposure to Tobacco Smoke None; Cigarette Smoking Last 365 Days No; Reg Smoking Cessation Counseling No Assessment and Plan Extracted from: Title: Clinical Document Author: Kevin Wilkins MD Date: 10/18/16 Patient post op implant Vagal nerve stimulator, awake alert at neuro baseline. Plan: home today, to office 2 weeks instructions given re activtiy diet wound care and meds.
--- NOTE | 2018-07-18 10:36 | Diagnostic Imaging Report ---
CT Abdomen And Pelvis with Intravenous Contrast INDICATION: Lower abdominal pain and constipation TECHNIQUE: Thin collimation axial images obtained from the diaphragm to the level of the pubic symphysis following the uneventful administration of 100 cc of low osmolar, nonionic intravenous contrast. Dose reduction techniques used: Automated exposure control, adjustment of the mAs and/or kVp according to patient size, standardized low-dose protocol, and/or iterative reconstruction technique. RADIATION DOSE: Total DLP: 747.03 mGy*cm Estimated effective dose: (DLP x 0.015 x size factor) mSv CTDIvol has been reviewed. It is below the limits set by the Radiation Protocol Committee (RPC). COMPARISON: None. ABDOMEN FINDINGS: Lung Bases: Posterior costophrenic angle atelectasis. Pericardial effusion measures 1.2 cm. The heart is normal in size. Liver: Decreased attenuation. No evidence for mass. Gallbladder: Absent. No biliary ductal dilatation. Pancreas: Normal attenuation without mass or ductal dilatation. Spleen: Normal in size. No evidence of mass.. Adrenal Glands: No evidence for mass. Kidneys: Right: Lobulated contours consistent with scarring. No soft tissue mass. No hydronephrosis. Left: Lobulated contours consistent with scarring. Calculus in the lower pole measures 3 to 4 mm. No soft tissue mass. No hydronephrosis. Lymph Nodes: No enlarged abdominal or periaortic lymph nodes.. Aorta: Normal in diameter with scattered calcifications PELVIS FINDINGS: Bowel: Stomach: Normal. Small Bowel: Distended with fluid without dilatation. Normal mucosal enhancement. Large Bowel: Fluid distention of the majority of the colon. There is a large amount of inspissated stool filling the distal sigmoid colon and rectum without mural thickening or associated inflammation. Appendix: Normal appendix. Bladder: Normal. The uterus is present and normal in morphology. No adnexal mass. Peritoneum/retroperitoneum: No free fluid or fluid collection. Bones: Trace endplate degenerative changes of the spine. No focal osseous lesions. IMPRESSION: 1. Fecal impaction. Diffuse fluid distention of the small bowel and large bowel without evidence of inflammation. No conclusive evidence of obstruction. 2. Normal appendix. 3. Steatosis. Cholecystectomy. 4. Left intrarenal calculus. No obstructive uropathy. 5. Small pericardial effusion. Signed by: Dr. Yousif Mcbride MD on 07/18/2018 10:33 AM
== END 2018-07-18 11:51 | disposition home or self-care (01) ==
LOC: FSED 08:28
DX: R10.84 Generalized abdominal pain (principal); R11.0 Nausea; K56.41 Fecal impaction; K58.9 Irritable bowel syndrome, unspecified; E11.65 Type 2 diabetes mellitus with hyperglycemia
CPT/HCPCS: 74177; 81003; 81025; 99283

== ENCOUNTER 2018-08-20 22:17 | Emergency (ER) | payer MEDICARE ==
[~2018-08-20] VITALS: Ht 165.1 cm; Wt 84.0 kg
--- OUTSIDE RECORDS SUMMARY | 2018-08-20 22:20 | XMS REPORT | Clinical Summary ---
Author Author [facility] Address Unknown Phone Unavailable Care Team Providers Care Consumer Insights Intern Name Role Phone Gerber Burch MD PCP [...] 03/28/2017 Seizures 03/28/2017 DKA (diabetic ketoacidoses) 03/26/2017 Encounters Care Team Description Date Type Specialty Ml Beatty MA 08/19/2018 Telephone Urology Ml Beatty MA 07/30/2018 Telephone Urology Sandra Shah MA 06/29/2018 Orders Only Urology [...] Sandra Shah MA 03/03/2018 Telephone Urology Emmanuel aGrber MD 03/03/2018 Telephone Urology Atul Rivera MD Al-Lahiq, Maha, MD Unsteady gait (Primary Dx); Suicide attempt (HCC); Generalized weakness 03/01/2018 [facility] General Internal Medicine - Encounter 03/04/2018 N/A [...] Urology Emmanuel Garber MD 08/19/2017 Refill Urology after 08/19/2017 Immunizations Name Dates Previously Given Next Due [...] Taken Vital Sign Reading 06/20/2018 1:04 AM INTERNAL SALESPERSON Blood Pressure 147/88 06/20/2018 1:04 AM INTERNAL SALESPERSON Pulse 106 06/20/2018 1:04 AM INTERNAL SALESPERSON Temperature 36.8 C (98.2 F) 06/20/2018 1:04 AM INTERNAL SALESPERSON Respiratory Rate 18 03/04/2018 4:11 AM INTERNAL SALESPERSON Oxygen Saturation 96% - Inhaled Oxygen - Concentration 03/01/2018 1:55 AM CDT Weight 81.6 kg (180 lb) 03/01/2018 1:55 AM CDT Height 167.6 cm (5' 6") 03/01/2018 1:55 AM CDT Body Mass Index 29.05 Plan of Treatment Care Team Description Date Type Specialty Emmanuel Garber MD [address] [facility] [address] [place], [place] [id number] 08/25/2018 Office Visit Urology Health Maintenance Due Date Last Done Comments DIABETIC RETINAL EYE EXAM 1970 DIABETIC FOOT EXAM 1980 URINE MICROALBUMIN 1980 CERVICAL CANCER SCREENING 1991 INFLUENZA VACCINE 11/26/2018 Implants Device Identifier Shelf Expiration Date Model / Serial / Lot Implanted Type Area Manufactur er Vagus Nerve Stimulator Vns Pins Procedures Comments Procedure Name Priority Date/Time Associated Diagnosis MICROSCOPIC EXAMINATION Routine 06/26/2018 3:12 PM INTERNAL SALESPERSON URINALYSIS, COMPLETE, Routine 06/26/2018 Urinary tract infection WITH REFLEX TO CULTURE 3:12 PM INTERNAL SALESPERSON without hematuria, site unspecified URINE CULTURE, Routine 06/26/2018 COMPREHENSIVE (YOJANA 3:12 PM INTERNAL SALESPERSON HIST) MICROSCOPIC EXAMINATION Routine 05/15/2018 2:59 PM INTERNAL SALESPERSON URINALYSIS, COMPLETE, Routine 05/15/2018 Urinary tract infection WITH REFLEX TO CULTURE 2:59 PM INTERNAL SALESPERSON without hematuria, site unspecified URINE CULTURE, Routine 05/15/2018 COMPREHENSIVE (YOJANA 2:59 PM INTERNAL SALESPERSON HIST) MICROSCOPIC EXAMINATION Routine 03/13/2018 1:13 PM INTERNAL SALESPERSON URINALYSIS, COMPLETE, Routine 03/13/2018 Urinary tract infection WITH REFLEX TO CULTURE 1:13 PM INTERNAL SALESPERSON without hematuria, site unspecified URINE CULTURE, Routine 03/13/2018 COMPREHENSIVE (YOJANA 1:13 PM INTERNAL SALESPERSON HIST) POC GLUCOSE Routine 03/04/2018 10:49 AM INTERNAL SALESPERSON POC GLUCOSE Routine 03/04/2018 5:39 AM INTERNAL SALESPERSON POC GLUCOSE Routine 03/03/2018 6:52 PM INTERNAL SALESPERSON POC GLUCOSE Routine 03/03/2018 11:38 AM INTERNAL SALESPERSON POC GLUCOSE Routine 03/03/2018 7:30 AM INTERNAL SALESPERSON ESTIMATED GFR Routine 03/03/2018 5:41 AM INTERNAL SALESPERSON BASIC METABOLIC PANEL Routine 03/03/2018 5:41 AM INTERNAL SALESPERSON POC GLUCOSE Routine 03/03/2018 5:40 AM INTERNAL SALESPERSON POC GLUCOSE Routine 03/02/2018 8:23 PM INTERNAL SALESPERSON POC GLUCOSE Routine 03/02/2018 4:46 PM INTERNAL SALESPERSON POC GLUCOSE Routine 03/02/2018 12:15 PM INTERNAL SALESPERSON POC GLUCOSE Routine 03/02/2018 10:21 AM INTERNAL SALESPERSON POC GLUCOSE Routine 03/02/2018 9:50 AM INTERNAL SALESPERSON POC GLUCOSE Routine 03/02/2018 6:07 AM INTERNAL SALESPERSON POC GLUCOSE Routine 03/01/2018 8:32 PM INTERNAL SALESPERSON POC GLUCOSE Routine 03/01/2018 4:30 PM INTERNAL SALESPERSON POC GLUCOSE Routine 03/01/2018 7:42 AM INTERNAL SALESPERSON URINE DRUGS OF ABUSE STAT 03/01/2018 SCREEN 6:00 AM INTERNAL SALESPERSON URINALYSIS SCREEN AND STAT 03/01/2018 MICROSCOPY, WITH REFLEX 6:00 AM INTERNAL SALESPERSON TO CULTURE GRAM STAIN STAT 03/01/2018 6:00 AM INTERNAL SALESPERSON URINE CULTURE STAT 03/01/2018 6:00 AM INTERNAL SALESPERSON HEMOGLOBIN A1C Routine 03/01/2018 1:33 AM CDT [...] PRELIMINARY Routine 01/16/2018 INTERPRETATION 11:14 PM CDT WI APPLY LOWER LEG SPLINT Routine 01/16/2018 11:14 [...] WO CONTRAST STAT 11/19/2017 5:30 PM CDT after 08/19/2017 Results * Urine Culture, Comprehensive (06/26/2018 3:12 PM INTERNAL SALESPERSON) Only the most recent of 4 results [...] units per mL Narrative Performed At Performed at: - [id number] Eyeglass Lens Cutter: Jose Acevedo MD, Phone:[phone] Performing Organization Address [facility] Phone Number [facility] * URINALYSIS, COMPLETE, WITH REFLEX TO CULTURE (06/26/2018 3:12 PM INTERNAL SALESPERSON) Only the most recent of 4 results [...] a Urine Culture. Narrative Performed At Performed at:[id number] Eyeglass Lens Cutter: Jose Acevedo MD, Phone:[phone] Performing Organization Address [facility] Phone Number [facility] * Microscopic Examination (06/26/2018 3:12 PM INTERNAL SALESPERSON) Only the most recent of 4 results within the time period is included. WBC, UA 0-5 0 - 5 /hpf [facility] RBC, UA None seen 0 - 2 /hpf [facility] Epithelial cells (non 0-10 0 - 10 /hpf [facility] renal) Mucus, UA Present Not Estab. [facility] Bacteria, UA Few None seen/Few [facility] Narrative Performed At Performed at:01 - [facility] [place] [address] [place], [id number] Eyeglass Lens Cutter: Jose Acevedo MD, Phone:[phone] Performing Organization Address City/[facility] Phone Number [facility] * POC glucose (03/04/2018 10:49 AM INTERNAL SALESPERSON) Only the most recent of 22 results within the time period is included. POC glucose 251 (H) 65 - 99 mg/dL [facility] DEPARTMENT OF Comment: PATHOLOGY AND Meter ID: [id number] GENOMIC MEDICINE Plasterer Helper: Debora Steel Performing Organization Address [facility] Phone Number [address] [place] [id number] PATHOLOGY AND [facility] * Estimated GFR (03/03/2018 5:41 AM INTERNAL SALESPERSON) Only the most recent of 4 results within the time period is included. Estimated GFR >=90 mL/min/1.73 m2 [facility] DEPARTMENT OF Comment: PATHOLOGY AND CatergoryUnitsInte GENOMIC MEDICINE rpretation G1 >=90 Normal or high G2 60-89Mildly decreased [id number] Mildly to moderately decreased C2i83-40 Moderately to severely decreased G4 15-29Severely decreased G5 <15Kidney failure The eGFR was calculated using the Chronic Kidney Disease Epidemiology Collaboration (CKD-EPI) equation. Interpretation is based on recommendations of the National Kidney Foundation-Kidney Disease Outcomes Quality Initiative (NKF-KDOQI) published in 2014. Specimen Plasma specimen Performing Organization Address [facility] Phone Number [address] [address] PATHOLOGY AND [facility] * Basic metabolic panel (03/03/2018 5:41 AM INTERNAL SALESPERSON) Only the most recent of 3 results within the time period is included. Sodium 139 135 - 148 mEq/L [facility] DEPARTMENT OF PATHOLOGY AND GENOMIC MEDICINE Potassium 4.1 3.5 - 5.0 mEq/L [facility] DEPARTMENT OF PATHOLOGY AND GENOMIC MEDICINE Chloride 101 98 - 112 mEq/L [facility] DEPARTMENT OF PATHOLOGY AND GENOMIC MEDICINE CO2 27 24 - 31 mEq/L [facility] DEPARTMENT OF PATHOLOGY AND GENOMIC MEDICINE Anion gap 11@ANIO 7 - 15 mEq/L [facility] DEPARTMENT OF PATHOLOGY AND GENOMIC MEDICINE BUN 13 6 - 20 mg/dL [facility] DEPARTMENT OF PATHOLOGY AND GENOMIC MEDICINE Creatinine 0.70 0.50 - 0.90 mg/dL [facility] DEPARTMENT OF PATHOLOGY AND GENOMIC MEDICINE Glucose 142 (H) 65 - 99 mg/dL [facility] DEPARTMENT OF PATHOLOGY AND GENOMIC MEDICINE Calcium 9.7 8.3 - 10.2 mg/dL [facility] DEPARTMENT OF PATHOLOGY AND GENOMIC MEDICINE Specimen Plasma specimen Performing Organization Address City/State/Zipcode Phone Number [address] [place] [address] PATHOLOGY AND GENOMIC MEDICINE * Urinalysis screen and microscopy, with reflex to culture (03/01/2018 6:00 AM INTERNAL SALESPERSON) Only the most recent of 3 results within the time period is included. Specimen site Clean catch [facility] DEPARTMENT OF PATHOLOGY AND GENOMIC MEDICINE Color, UA Yellow [facility] DEPARTMENT OF PATHOLOGY AND GENOMIC MEDICINE Appearance, UA Slightly-Cloudy [facility] DEPARTMENT OF PATHOLOGY AND GENOMIC MEDICINE Specific gravity, UA 1.012 1.001 - 1.035 [facility] DEPARTMENT OF PATHOLOGY AND GENOMIC MEDICINE pH, UA 5.0 5.0 - 8.5 [facility] DEPARTMENT OF PATHOLOGY AND GENOMIC MEDICINE Protein, UA Negative Negative [facility] DEPARTMENT OF PATHOLOGY AND GENOMIC MEDICINE Glucose, UA 3+ (A) Negative [facility] DEPARTMENT OF PATHOLOGY AND GENOMIC MEDICINE Ketones, UA Negative Negative [facility] DEPARTMENT OF PATHOLOGY AND GENOMIC MEDICINE Bilirubin, UA Negative Negative [facility] DEPARTMENT OF PATHOLOGY AND GENOMIC MEDICINE Blood, UA Negative Negative [facility] DEPARTMENT OF PATHOLOGY AND GENOMIC MEDICINE Nitrite, UA Negative Negative [facility] DEPARTMENT OF PATHOLOGY AND GENOMIC MEDICINE Urobilinogen, UA Negative <2.0 [facility] DEPARTMENT OF PATHOLOGY AND GENOMIC MEDICINE Leukocyte esterase, UA Small (A) Negative [facility] DEPARTMENT OF PATHOLOGY AND GENOMIC MEDICINE Round epithelial cells, Few 0 - 1 /HPF [facility] DEPARTMENT OF UA PATHOLOGY AND GENOMIC MEDICINE WBC, UA 11-20 (H) 0 - 4 /HPF [facility] DEPARTMENT OF PATHOLOGY AND GENOMIC MEDICINE RBC, UA 0-5 0 - 5 /HPF [facility] DEPARTMENT OF PATHOLOGY AND GENOMIC MEDICINE Bacteria, UA Trace None seen [facility] DEPARTMENT OF PATHOLOGY AND GENOMIC MEDICINE Yeast, UA None seen [facility] DEPARTMENT OF PATHOLOGY AND GENOMIC MEDICINE Yeast with pseudohyphae, None seen [facility] DEPARTMENT OF UA PATHOLOGY AND GENOMIC MEDICINE Specimen Urine Performing Organization Address [facility] Phone Number [facility] [place] [id number] [place] [address] [place] [address] PATHOLOGY AND GENOMIC MEDICINE * Urine drugs of abuse screen (03/01/2018 6:00 AM INTERNAL SALESPERSON) Amphetamine screen, urine Negative [facility] DEPARTMENT OF PATHOLOGY AND GENOMIC MEDICINE Methamphetamine screen, Negative [facility] DEPARTMENT OF urine PATHOLOGY AND GENOMIC MEDICINE Barbiturate screen, urine Negative [facility] DEPARTMENT OF PATHOLOGY AND GENOMIC MEDICINE Benzodiazepine screen, Positive (A) [facility] DEPARTMENT OF urine PATHOLOGY AND GENOMIC MEDICINE Cocaine screen, urine Negative [facility] DEPARTMENT OF PATHOLOGY AND GENOMIC MEDICINE Methadone screen, urine Negative [facility] DEPARTMENT OF PATHOLOGY AND GENOMIC MEDICINE Opiates screen, urine Negative [facility] DEPARTMENT OF PATHOLOGY AND GENOMIC MEDICINE Phencyclidine screen, Negative [facility] DEPARTMENT OF urine PATHOLOGY AND GENOMIC MEDICINE Cannabinoid screen, urine Negative [facility] DEPARTMENT OF PATHOLOGY AND GENOMIC MEDICINE Tricyclic screen, urine Negative [facility] DEPARTMENT OF Comment: PATHOLOGY AND [...] purposes only. Specimen Urine Performing Organization Address [facility] Phone Number [facility] [place] [id number] [place] [address] [place] [address] PATHOLOGY AND GENOMIC MEDICINE * Gram stain (03/01/2018 6:00 AM INTERNAL SALESPERSON) Only the most recent of 3 results within the time period is included. Gram stain result Occasional Gram negative rods [facility] DEPARTMENT OF Rare WBC's PATHOLOGY AND Comment: GENOMIC MEDICINE Specimen Information Specimen Source: Urine Specimen Site: Clean catch Specimen Urine Performing Organization Address City/[facility] Phone Number [facility] DEPARTMENT OF [address] [place] [address] PATHOLOGY AND GENOMIC MEDICINE * Urine culture (03/01/2018 6:00 AM INTERNAL SALESPERSON) Only the most recent of 3 results within the time period is included. Urine culture isolate Escherichia coli [facility] DEPARTMENT OF >10-5 cfu/ml PATHOLOGY AND The performance GENOMIC MEDICINE characteristics of this assay on this isolate were validated by the Microbiology Laboratory at [facility].This source has not been approved by the U.S. Food and Drug Administration.The results are not intended to be used as the sole means for clinical diagnosis or patient management.The Microbiology Laboratory is authorized under the clinical Laboratory Improvement Amendments of 1988 (CLIA-88) to perform high complexity testing. This isolate is a online producer of ESBL (extended spectrum beta lactamase).This [...] coli Performing Organization Address City/State/Zipcode Phone Number [facility] DEPARTMENT OF [address] [place] [address] PATHOLOGY AND GENOMIC MEDICINE * CBC with platelet and differential (03/01/2018 1:33 AM CDT) Only the most recent of 5 results within the time period is included. WBC 5.91 4.50 - 11.00 k/uL [facility] DEPARTMENT OF PATHOLOGY AND GENOMIC MEDICINE RBC 5.11 4.20 - 5.50 m/uL [facility] DEPARTMENT OF PATHOLOGY AND GENOMIC MEDICINE HGB 14.6 12.0 - 16.0 g/dL [facility] DEPARTMENT OF PATHOLOGY AND GENOMIC MEDICINE HCT 43.6 37.0 - 47.0 % [facility] DEPARTMENT OF PATHOLOGY AND GENOMIC MEDICINE MCV 85.3 82.0 - 100.0 fL [facility] DEPARTMENT OF PATHOLOGY AND GENOMIC MEDICINE MCH 28.6 27.0 - 34.0 pg [facility] DEPARTMENT OF PATHOLOGY AND GENOMIC MEDICINE MCHC 33.5 31.0 - 37.0 g/dL [facility] DEPARTMENT OF PATHOLOGY AND GENOMIC MEDICINE RDW - SD 38.5 37.0 - 55.0 fL [facility] DEPARTMENT OF PATHOLOGY AND GENOMIC MEDICINE MPV 10.8 8.8 - 13.2 fL [facility] DEPARTMENT OF PATHOLOGY AND GENOMIC MEDICINE Platelet count 162 150 - 400 k/uL [facility] DEPARTMENT OF PATHOLOGY AND GENOMIC MEDICINE Nucleated RBC 0.00 /100 WBC [facility] DEPARTMENT OF PATHOLOGY AND GENOMIC MEDICINE Neutrophils 72.1 (H) 39.0 - 69.0 % [facility] DEPARTMENT OF PATHOLOGY AND GENOMIC MEDICINE Lymphocytes 20.0 (L) 25.0 - 45.0 % [facility] DEPARTMENT OF PATHOLOGY AND GENOMIC MEDICINE Monocytes 7.1 0.0 - 10.0 % [facility] DEPARTMENT OF PATHOLOGY AND GENOMIC MEDICINE Eosinophils 0.0 0.0 - 5.0 % [facility] DEPARTMENT OF PATHOLOGY AND GENOMIC MEDICINE Basophils 0.5 0.0 - 1.0 % [facility] DEPARTMENT OF PATHOLOGY AND GENOMIC MEDICINE Specimen Blood Performing Organization Address City/State/Zipcode Phone Number [facility] [place] [address] [place], [place] [address] PATHOLOGY AND GENOMIC MEDICINE * Thyroid stimulating hormone (03/01/2018 1:33 AM CDT) TSH 4.26 (H) 0.27 - 4.20 uIU/mL [facility] DEPARTMENT OF PATHOLOGY AND GENOMIC MEDICINE Specimen Plasma specimen Performing Organization Address [facility] Phone Number [address] [place] [address] PATHOLOGY AND GENOMIC MEDICINE * Hemoglobin A1c (03/01/2018 1:33 AM CDT) Hemoglobin A1C 8.9 (H) 4.0 - 6.0 % [facility] DEPARTMENT OF Comment: PATHOLOGY AND GENOMIC MEDICINE Less than 6% - Goal of therapy for Type II Diabetes Less than 7%-Goal of therapy for Type I Diabetes Less than 8%-Accepta ble control for Type I or Type II Diabetes Greater than 8%-Unacceptabl e control; action indicated. ([id number]) Specimen Blood Performing Organization Address [facility] Phone Number [address] [place] [address] PATHOLOGY AND GENOMIC MEDICINE * Alcohol level, blood (03/01/2018 1:33 AM CDT) Alcohol None Detected mg/dL [facility] DEPARTMENT OF Comment: PATHOLOGY AND Normal GENOMIC MEDICINE None Detected Legal Intoxication in [place]80 mg/dL (0.08%) - Whole Blood Toxic Concentration 200 mg/dL (0.2%) Potentially Fatal3 50 - 500 mg/dL (0.35 - 0.5%) Alcohol percent None Detected % [facility] DEPARTMENT OF PATHOLOGY AND GENOMIC MEDICINE Specimen Plasma specimen Performing Organization Address [facility] Phone Number [address] [place] [address] PATHOLOGY AND GENOMIC MEDICINE * Acetaminophen level (03/01/2018 1:33 AM CDT) Acetaminophen level <15.0 10.0 - 30.0 ug/mL [facility] DEPARTMENT OF Comment: PATHOLOGY AND Therapeutic GENOMIC MEDICINE 10-30 ug/mL Possible Toxicity 150-200 ug/mL Probable Toxicity >200 ug/mL Specimen Plasma specimen Performing Organization Address [facility] Phone Number [facility] [place] [address] [place] [address] PATHOLOGY AND GENOMIC MEDICINE * Salicylate level (03/01/2018 1:33 AM CDT) Salicylate <0.3 (L) 3.0 - 30.0 mg/dL [facility] DEPARTMENT OF PATHOLOGY AND [facility] Specimen Plasma specimen Performing Organization Address [facility] Phone Number [facility] [place] [address] [place] [address] PATHOLOGY AND GENOMIC MEDICINE * ECG ED [...] ED Physician in the absence of a porcelain enamel laborer: yes Interpretation: Interpretation: abnormal Rate: ECG rate:101 [...] [facility] Atrial rate 101 [facility] WI interval 198 [facility] QRSD interval 98 [facility] QT interval 368 [facility] QTC interval 477 [facility] P axis 1 63 [facility] QRS axis 1 52 [facility] T wave axis 62 [facility] EKG impression Sinus tachycardia-Possible [facility] MUSE Left atrial enlargement-Borderline ECG-In automated comparison with ECG of 17-JAN-2018 04:22,-No significant change was found- Performing Organization Address [facility] Phone Number [facility] [address] [place] [address] * T4, free (03/01/2018 1:00 AM CDT) T4, free 0.78 (L) 0.90 - 1.70 ng/dL [facility] OF PATHOLOGY AND GENOMIC MEDICINE Specimen Plasma specimen Performing Organization Address City/[facility] Phone Number [address] [place] Singular [facility] * Troponin (01/17/2018 12:05 PM CDT) Only the most recent of 4 results within the time period is included. Troponin <0.300 0.000 - 0.300 ng/mL [facility] DEPARTMENT OF Comment: PATHOLOGY AND 0.30 - 1.49 GENOMIC MEDICINE ng/mlMay indicate increased risk of acute coronary syndrome. >=1.5 ng/ml Consistent with acute myocardial infarction. The diagnostic value of a single normal or non-diagnostic result is questionable.Serial samples at 2-6 hour intervals are required to rule out acute myocardial injury. Specimen Plasma specimen Performing Organization Address [facility] Phone Number [address] [place] Singular [facility] * Comprehensive metabolic panel (01/17/2018 4:10 AM CDT) Only the most recent of 3 results within the time period is included. Sodium 140 135 - 148 mEq/L [facility] DEPARTMENT OF PATHOLOGY AND GENOMIC MEDICINE Potassium 3.7 3.5 - 5.0 mEq/L [facility] DEPARTMENT OF PATHOLOGY AND GENOMIC MEDICINE Chloride 100 98 - 112 mEq/L [facility] DEPARTMENT OF PATHOLOGY AND GENOMIC MEDICINE CO2 31 24 - 31 mEq/L [facility] DEPARTMENT OF PATHOLOGY AND GENOMIC MEDICINE Anion gap 9@ANIO 7 - 15 mEq/L [facility] DEPARTMENT OF PATHOLOGY AND GENOMIC MEDICINE BUN 18 6 - 20 mg/dL [facility] DEPARTMENT OF PATHOLOGY AND GENOMIC MEDICINE Creatinine 0.80 0.50 - 0.90 mg/dL [facility] DEPARTMENT OF PATHOLOGY AND GENOMIC MEDICINE Glucose 228 (H) 65 - 99 mg/dL [facility] DEPARTMENT OF PATHOLOGY AND GENOMIC MEDICINE Calcium 9.4 8.3 - 10.2 mg/dL [facility] DEPARTMENT OF PATHOLOGY AND GENOMIC MEDICINE Protein 6.1 (L) 6.3 - 8.3 g/dL [facility] DEPARTMENT OF Comment: PATHOLOGY AND GENOMIC MEDICINE 4.6-7.0 g/dL 1 week 4.4-7.6 g/dL 7 months-1year 5.1-7.3 g/dL 1-2 years5.6-7 .5 g/dL >3 years6.0-8 .0 g/dL 18-150 6.3-8.3 g/dL Albumin 3.9 3.5 - 5.0 g/dL [facility] DEPARTMENT OF PATHOLOGY AND GENOMIC MEDICINE A/G ratio 1.8 0.7 - 3.8 [facility] DEPARTMENT OF PATHOLOGY AND GENOMIC MEDICINE Alkaline phosphatase 158 (H) 35 - 104 U/L [facility] DEPARTMENT OF PATHOLOGY AND GENOMIC MEDICINE AST 36 (H) 10 - 35 U/L [facility] DEPARTMENT OF PATHOLOGY AND GENOMIC MEDICINE ALT 35 5 - 50 U/L [facility] DEPARTMENT OF PATHOLOGY AND GENOMIC MEDICINE Total bilirubin 0.2 0.0 - 1.2 mg/dL [facility] DEPARTMENT OF PATHOLOGY AND GENOMIC MEDICINE Specimen Plasma specimen Performing Organization Address City/[facility]/Zipcode Phone Number [facility] DEPARTMENT [id number] [place] [address] [place] [address] PATHOLOGY AND GENOMIC MEDICINE * Prolactin level (01/17/2018 1:50 AM CDT) Prolactin 18 5 - 23 ng/mL [facility] DEPARTMENT OF PATHOLOGY AND GENOMIC MEDICINE Specimen Plasma specimen Performing Organization Address City/[facility] Phone Number [facility] OF [address] [place] [address] PATHOLOGY AND GENOMIC MEDICINE * XR Chest 1 Vw Portable (01/17/2018 12:31 AM CDT) Narrative Performed At EXAMINATION: XR CHEST 1 VW PORTABLE [facility] CLINICAL HISTORY: fall COMPARISON:07/05/2017 chest x-ray. IMPRESSION: The lungs are clear. No pleural effusion or pneumothorax. The cardiomediastinal silhouette is normal. Left chest cardiac device. No acute osseous abnormalities. [facility]-[id number] Procedure Note Interface, Radiology Results Incoming - 01/17/2018 12:37 AM CDT EXAMINATION: XR CHEST 1 VW PORTABLE CLINICAL HISTORY: fall COMPARISON: 07/05/2017 chest x-ray. IMPRESSION: The lungs are clear. No pleural effusion or pneumothorax. The cardiomediastinal silhouette is normal. Left chest cardiac device. No acute osseous abnormalities. [facility]-[id number] Performing Organization Address [facility] Phone Number [facility] [address] [place] [address] * XR Shoulder 2+ Vw Left (01/16/2018 11:17 PM CDT) Narrative Performed At EXAMINATION:XR SHOULDER 2VW LEFT [facility] CLINICAL HISTORY:FALL COMPARISON:None. IMPRESSION: No evidence of acute left shoulder fracture or dislocation. Soft tissues are unremarkable. Medical nerve stimulator is partially visualized. [facility]-[id number] Procedure Note Interface, Radiology Results Incoming - 01/16/2018 11:22 PM CDT EXAMINATION: XR SHOULDER 2 VW LEFT CLINICAL HISTORY: FALL COMPARISON: None. IMPRESSION: No evidence of acute left shoulder fracture or dislocation. Soft tissues are unremarkable. Medical nerve stimulator is partially visualized. [facility]-[id number] Performing Organization Address [facility] Phone Number [facility] [address] [place] [address] * XR Ankle 3+ Vw Left (01/16/2018 [...] of the ankle. There are calcaneal enthesophytes. [facility]-[id number] Procedure Note Interface, Radiology Results Incoming - [...] of the ankle. There are calcaneal enthesophytes. [facility]-[id number] Performing Organization Address [facility] Cent[facility]ode Phone Number [facility] [address] [place] [address] * SPLINT APPLICATION (01/16/2018 11:14 PM CDT) Narrative Performed At LEONIDAS Orozco 01/17/20184:40 AM Splint Application Performed by: ULI ORTEGA Authorized by: CHACHA MALONE Consent: Consent obtained:Verbal Consent given by:Patient Risks discussed:Discoloration, numbness, pain and swelling Alternatives discussed:Referral, observation, alternative treatment, delayed treatment and no treatment Pre-procedure details: Sensation:Normal Skin color:[place]inea Procedure details: Laterality:Left Location:Ankle Ankle:L ankle Splint type:Short leg Supplies:Cotton padding, elastic bandage and Ortho-Glass Post-procedure details: Pain:Improved Sensation:Normal Skin color:[place] Patient tolerance of procedure:Tolerated well, no immediate [...] acute osseous abnormality of the cervical spine. [facility]-[id number] Procedure Note Interface, Radiology Results Incoming - [...] acute osseous abnormality of the cervical spine. [facility]-[id number] Performing Organization Address City/State/Zipcode Phone Number [facility] [address] [place] [address] * CT Head Wo Contrast (01/16/2018 11:02 [...] normal. IMPRESSION: No acute intracranial abnormality identified. [facility]-[id number] Procedure Note Interface, Radiology Results Incoming - [...] normal. IMPRESSION: No acute intracranial abnormality identified. [facility]-[id number] Performing Organization Address City/State/Zipcode Phone Number [facility] [address] [place] [address] * Partial thromboplastin time, activated (01/16/2018 10:45 PM CDT) PTT 27.1 23.0 - 36.0 sec [facility] DEPARTMENT OF Comment: PATHOLOGY AND PTT therapeutic range for GENOMIC MEDICINE unfractionated heparin is 61.0-112.0 seconds which corresponds to Anti-Xa 0.3-0.7 U/ml. Specimen Blood Performing Organization Address [facility] Centercome Phone Number [address] [place] [address] PATHOLOGY AND Singular [facility] * Prothrombin time with INR (01/16/2018 10:45 PM CDT) Prothrombin time 13.9 12.0 - 15.0 sec [facility] DEPARTMENT OF PATHOLOGY AND Singular [facility] INR 1.1 [facility] DEPARTMENT OF Comment: PATHOLOGY AND The International Normalized [facility] Ratio (INR) is a therapeutic monitoring tool for patients who are stable on oral anticoagulant therapy. An INR of 2.0-3.0 is suggested for deep vein thrombosis/pulmonary embolism. Specimen Blood Performing Organization Address [facility] Number [address] [place] [address] PATHOLOGY AND [facility] * hCG qualitative, serum screen (01/16/2018 10:45 PM CDT) hCG qualitative, serum Negative [facility] DEPARTMENT OF PATHOLOGY AND Singular [facility] Specimen Blood Performing Organization [facility] Number [address] [place] [address] PATHOLOGY AND Singular [facility] * Estimated GFR (12/08/2017 5:45 PM CDT) Only the most recent of 2 results within the time period is included. GFR Non Af Amer 77 mL/min/1.73 m2 [facility] DEPARTMENT OF PATHOLOGY AND Singular MEDICINE GFR Af Amer >90 mL/min/1.73 m2 [facility] DEPARTMENT OF Comment: PATHOLOGY AND [...] Americans. Specimen Plasma specimen Performing Organization Address [facility] Phone Number [address] [place] [address] PATHOLOGY AND GENOMIC MEDICINE * Lipase level (12/08/2017 5:45 PM CDT) Lipase 63 (H) 13 - 60 U/L [facility] DEPARTMENT OF PATHOLOGY AND GENOMIC MEDICINE Specimen Plasma specimen Performing Organization Address [facility]ercome Phone Number [address] [place] [address] PATHOLOGY AND GENOMIC MEDICINE * Hepatic function panel (12/08/2017 5:45 PM CDT) Albumin 4.3 3.5 - 5.0 g/dL [facility] DEPARTMENT OF PATHOLOGY AND GENOMIC MEDICINE Total bilirubin 0.2 0.0 - 1.2 mg/dL [facility] DEPARTMENT OF PATHOLOGY AND GENOMIC MEDICINE Bilirubin direct <0.1 0.0 - 0.3 mg/dL [facility] DEPARTMENT OF PATHOLOGY AND GENOMIC MEDICINE Alkaline phosphatase 115 (H) 35 - 104 U/L [facility] DEPARTMENT OF PATHOLOGY AND GENOMIC MEDICINE Protein 6.9 6.3 - 8.3 g/dL [facility] DEPARTMENT OF Comment: PATHOLOGY AND GENOMIC MEDICINE 4.6-7.0 g/dL 1 week 4.4-7.6 g/dL 7 months-1year 5.1-7.3 g/dL 1-2 years5.6-7 .5 g/dL >3 years6.0-8 .0 g/dL 18-150 6.3-8.3 g/dL ALT 12 5 - 50 U/L [facility] DEPARTMENT OF PATHOLOGY AND GENOMIC MEDICINE AST 13 10 - 35 U/L [facility] DEPARTMENT OF PATHOLOGY AND GENOMIC MEDICINE Specimen Plasma specimen Performing Organization Address [facility] Phone Number [address] [place] [address] PATHOLOGY AND [facility] MED[facility]INE * CT Renal Stone Protocol (12/08/2017 5:31 PM CDT) Narrative Performed At EXAMINATION:CT RENAL STONE PROTOCOL [facility] CLINICAL HISTORY:flank pain TECHNIQUE:Multiple axial images [...] throughout the colon, correlate for underlying constipation. [facility]-[id number] Procedure Note Interface, Radiology Results Incoming - 12/08/2017 5:44 [...] throughout the colon, correlate for underlying constipation. [facility]-[id number] Performing Organization Address City/State/Zipcode Phone Number [facility] [address] [place] [address] * XR Knee 4+ Vw Left (11/19/2017 6:15 PM CDT) Narrative Performed At EXAMINATION:XR KNEE 4VW LEFT [facility] CLINICAL HISTORY:Knee paininitial exam COMPARISON:None. IMPRESSION: There is no evidence of left knee fracture, dislocation, or joint effusion. Bone mineralization is normal. Minimal osteophytic change about the medial and lateral joint lines [id number] Procedure Note Hm Interface, Radiology Results Incoming - 11/19/2017 6:20 PM CDT EXAMINATION: XR KNEE 4 VW LEFT CLINICAL HISTORY: Knee pain initial exam COMPARISON: None. IMPRESSION: There is no evidence of left knee fracture, dislocation, or joint effusion. Bone mineralization is normal. Minimal osteophytic change about the medial and lateral joint lines [id number] Performing Organization Address City/State/Zipcode Phone Number [facility] [address] [place] [address] after 08/19/2017 Insurance Payer Benefit Subscriber ID Type Phone Address Plan / Group MEDICARE MEDICARE xxxxxxxxxx Medicare [place], [place] PART A AND B MEDICAID MEDICAID xxxxxxxxx Medicaid Advance Directives Patient has advance care planning documents, and code status on file. For more i nformation, please contact: Hari Moss [address] [place] [address] Date Inactivated Comments Code Status Date Activated 03/29/2017 4:04 PM Full Code 03/26/2017 10:10 PM Code Status decision reached by: Patient
--- OUTSIDE RECORDS SUMMARY | 2018-08-20 22:21 | XMS REPORT | Clinical Summary ---
Author Author [facility] Address Unknown Phone Unavailable Care Team Providers Care Burr Picker Name Role Phone Gerber Burch PCP Allergies [...] Dx) 11/11/2017 Outside Orders Central Scheduling after 08/19/2017 Social History Date Tobacco Use Types Packs/Day [...] not intractable, without status epilepticus (HCC) after 08/19/2017 Results * EEG Awake & Drowsy (11/18/2017 2:11 PM CDT) Specimen Narrative Performed At Date(s) of EE11/18/2017 [facility] DATE OF REPORT: 11/18/2017 ACC: [id number] EEG Number: [id number] Test Location: Outpatient EEG Lab Start time: 13:29 Stop time: 14:00 ICD-10: R56.9 CPT Code: 43556 HISTORY: 47 yo female with episodes of [...] of EE11/18/2017 DATE OF REPORT: 11/18/2017 ACC: [id number] EEG Number: [id number] Test Location: Outpatient EEG Lab Start time: 13:29 Stop time: 14:00 ICD-10: R56.9 CPT Code: 65475 HISTORY: 47 yo female with episodes of [...] Address City/State/Zipcode Phone Number [facility] after 08/19/2017 Insurance Payer Benefit Subscriber ID Type Phone Address Plan / Group MEDICARE MEDICARE A xxxxxxxxxx Medicare B MEDICAID MEDICAID xxxxxxxxx Medicaid OF [place] Advance Directives For more information, please contact: [address] [address] Date Inactivated Comments Code Status Date Activated 01/23/2017 2:40 PM Full Code 01/20/2017 8:53 AM This code status was determined by: Patient
[2018-08-20] MEDS ORDERED: ONDANSETRON HCL 4 MG ORAL DISINTEGRATING TAB PO ONE (22:45)
[2018-08-20] MEDS ORDERED: ACETAMINOPHEN 325 MG TAB PO ONE (22:45)
[2018-08-20] MEDS ORDERED: KETOROLAC TROMETHAMINE 60 MG/2 ML VIAL IM ONE (22:45)
--- NOTE | 2018-08-20 23:37 | Diagnostic Imaging Report ---
Left ankle 2 - views HISTORY: Cardiac fluid. COMPARISON: None FINDINGS: No displaced fracture. Osseous alignment is within normal limits. The joint spaces are well-maintained. Small plantar calcaneal enthesophyte. IMPRESSION: No acute osseous abnormality. Signed by: Dr. Cezar Smyth M.D. on 08/20/2018 11:34 PM
[2018-08-21 01:45] VITALS: BP 161/100
== END 2018-08-21 00:18 | disposition home or self-care (01) ==
LOC: FSED 22:17
DX: L03.116 Cellulitis of left lower limb (principal); R51 Headache; E11.42 Type 2 diabetes mellitus with diabetic polyneuropathy; G40.909 Epilepsy, unspecified, not intractable, without status epilepticus
CPT/HCPCS: 73600; 96372; 99283; J1885; Q0162

== ENCOUNTER → 2019-11-11 | Day surgery (SDC) | payer MEDICARE, OTHER ==
[~2019-11-11] MED LIST changes: +AMITIZA24 MCG PO; +CYCLOBENZAPRINE10 MG PO; +HUMALOG100 UNIT/1 IJ; +HYDROXYZINE HCL25 MG PO; +INSULIN REGULAR, HUMAN 100 UNIT/1 ML 3ML VIAL ONE; +METFORMIN HCL500 MG PO; +ONDANSETRON ODT8 MG PO; +OZEMPIC0.25 MG/0. SC; +PROMETHAZINE HC25 M1 PO; +PROPOFOL IV EMULSION 10 MG/ML 20 ML VIAL ONE; +TERBINAFINE HC250 MG PO; +TOPIRAMATE25 MG PO; +TRESIBA100 UNIT/1 INJ
[2019-11-11 11:00] VITALS: BP 100/61
== END | disposition home or self-care (01) ==
LOC: OR 07:32
PROVIDERS: ATTEND Internal Medicine Gastroenterology
DX: K59.00 Constipation, unspecified (principal); Z86.010 Personal history of colon polyps; K64.8 Other hemorrhoids; K21.9 Gastro-esophageal reflux disease without esophagitis; E11.9 Type 2 diabetes mellitus without complications; G40.909 Epilepsy, unspecified, not intractable, without status epilepticus; E03.9 Hypothyroidism, unspecified; K75.9 Inflammatory liver disease, unspecified; F32.9 Major depressive disorder, single episode, unspecified; Z88.6 Allergy status to analgesic agent; Z88.1 Allergy status to other antibiotic agents; Z88.8 Allergy status to other drugs, medicaments and biological substances; Z01.810 Encounter for preprocedural cardiovascular examination; Z01.812 Encounter for preprocedural laboratory examination; Z11.59 Encounter for screening for other viral diseases; Z79.84 Long term (current) use of oral hypoglycemic drugs; Z79.4 Long term (current) use of insulin
CPT/HCPCS: 36415; 45378; 82948; 93005; J2704; U0002; J1817

== ENCOUNTER → 2020-02-04 | Day surgery (SDC) | payer MEDICARE, OTHER ==
[~2020-02-04] MED LIST changes: +FENTANYL CITRATE/PF 100MCG/2 ML INJ ONE; -INSULIN REGULAR, HUMAN 100 UNIT/1 ML 3ML VIAL ONE; +LIDOCAINE HCL 2% LOCAL INJ 5 ML SDV VIAL INJ ONE; +MIDAZOLAM HCL 2 MG/2 ML VIAL ONE
[2020-02-04 07:30] VITALS: BP 96/65
== END | disposition home or self-care (01) ==
LOC: OR 05:44
PROVIDERS: ATTEND Internal Medicine Gastroenterology
DX: K59.00 Constipation, unspecified (principal); Z86.010 Personal history of colon polyps; K64.8 Other hemorrhoids; E11.9 Type 2 diabetes mellitus without complications; E78.00 Pure hypercholesterolemia, unspecified; G40.909 Epilepsy, unspecified, not intractable, without status epilepticus; E78.5 Hyperlipidemia, unspecified; E03.9 Hypothyroidism, unspecified; Z88.6 Allergy status to analgesic agent; Z88.1 Allergy status to other antibiotic agents; Z88.3 Allergy status to other anti-infective agents; Z88.8 Allergy status to other drugs, medicaments and biological substances; Z01.812 Encounter for preprocedural laboratory examination; Z11.59 Encounter for screening for other viral diseases; Z79.4 Long term (current) use of insulin; Z79.84 Long term (current) use of oral hypoglycemic drugs; Z91.5 Personal history of self-harm; Z80.0 Family history of malignant neoplasm of digestive organs
CPT/HCPCS: 36415; 45378; 82948; J2001; J2250; J2704; J3010; U0002 ×2